=== PATIENT | female | born 1970 | race Caucasian/White ===

== ENCOUNTER → 2021-12-08 | Outpatient (CLI) | payer OTHER, SELFPAY ==
--- NOTE | 2021-12-08 06:33 | CT_ITS ---
STUDY: CT CHEST, ABDOMEN T PELVIS WITH CONTRAST REASON FOR EXAM: Female, 51 years old. BREAST CANCER follow-up. Prior bilateral mastectomy and bilateral oophorectomy. RADIATION DOSAGE (If Supplied By Facility): CTDIvol = ( 9.08 ) mGy, DLP = ( 687.92 ) mGycm TECHNIQUE: Transaxial imaging was performed following intravenous administration of Oral and amp;amp; IV Gastrografin and amp;amp; 100mL Isovue-300. Multiplanar coronal and sagittal images were reformatted. Individualized dose optimization techniques were used for this CT. COMPARISON: No relevant priors. FINDINGS: CHEST A right-sided nadia catheter seen with the tip in the superior vena cava. The patient is status post bilateral mastectomy. The lungs are normal. There is no demonstrated pleural abnormality. Normal heart and pericardium. Normal mediastinum. Normal hilar regions. Normal unenhanced pulmonary arteries. Normal aorta arch and descending thoracic aorta. Almost complete collapse of the T6 vertebrae. There is a 9.4 mm cyst in the lateral aspect of the left lobe of the liver. ABDOMEN Small cysts seen throughout both the right and left lobes of the liver. Normal gallbladder and extrahepatic biliary system. Normal spleen. Normal pancreas. Normal bilateral adrenal glands. Normal right kidney. There is a 1.5 cm cyst in the lateral posterior aspect of the left kidney. Normal visualized stomach. Normal small intestine. Normal colon. The appendix is visualized and appears normal. Normal abdominal aorta. Normal inferior vena cava. Normal retroperitoneum. Normal abdominal wall. Loss of the normal lumbar lordosis. PELVIS Normal urinary bladder. Normal visualized pelvic arteries. CT/CT Chest, Abd, Pel w/Contrast IMPRESSION: Small cysts in both lobes of the liver. Small cyst in the left kidney. Almost complete collapse of the T6 vertebrae. Electronically Signed: Harry Duffy MD at 10:06 EDT ,
[2021-12-08 06:50] LABS: Absolute Lymphocyte Count 1.46 X10^3/uL (0.83-4.51); Absolute Neutrophil Count 3.5 X10^3/uL (2.0-7.7); Basophil# 0.07 X10^3/uL; Basophil% 1.2 % (0-1); Eosinophil# 0.18 X10^3/uL; Eosinophils% 3.2 % (0-5); Hemoglobin 12.2 g/dL (12.0-15.0); Lymphocyte # 1.46 X10^3/ul (0.83-4.51); Lymphocyte % 25.7 % (19-41); Mean Corp Hgb Conc 31.3 g/dL (32-36); Mean Corpuscular Hgb 30.6 pg (27.0-32.0); Mean Corpuscular Volume 97.7 fL (81-99); Mean Platelet Vol. 9.9 fl (6.2-12.0); Monocyte# 0.44 X10^3/uL; Monocyte% 7.7 % (0-10); NRBC Flagged by Analyzer 0 % (0-5); Neutrophil # 3.53 X10^3/uL (2.7-7.7); Platelet Count 185 K/mm3 (150-450); RBC Distribution Width CV 13.9 % (11.6-14.6); RBC Distribution Width SD 50.6 fl (35.1-43.9); Red Blood Count 3.99 M/mm3 (4.2-5.4); White Blood Count 5.7 K/mm3 (4.4-11.0)
[2021-12-08 07:10] LABS: ALB/GLOB Ratio 1.2 RATIO (0.9-2.4); AST(SGOT) 17 U/L (15-37); Alanine Aminotransfer ALT/SGPT 16 U/L (13-56); Alkaline Phosphatase 71 U/L (45-117); Anion Gap 4 (5-15); BUN 12 mg/dL (7-18); BUN/Creat Ratio 14.8 RATIO (10-20); Calcium,Total 9.5 mg/dL (8.5-10.1); Chloride 109 mmol/L (98-107); Creatinine, Serum 0.81 mg/dL (0.55-1.02); EST Glomerular Filtration Rate 79 mL/min (>60); Est Glom Filt Rate - Afr Amer 95 mL/min (>60); Globulin 3.4 g/dL (2.2-4.2); Glucose 75 mg/dL (74-106); Potassium 3.8 mmol/L (3.5-5.1); Protein, Total 7.4 g/dL (6.4-8.2); Sodium Level 142 mmol/L (136-145)
[2021-12-08] MEDS: 0.9 % NaCl (Sterile) Posiflush 10 mL IV (08:25)
[2021-12-08] MEDS: 0.9% Saline Lock 10 ML Syringe IV (08:35)
[2021-12-09 17:14] LABS: CA 15-3 16.9 U/mL (0.0-25.0); CA 27.29 16.6 U/mL (0.0-38.6)
== END | disposition home or self-care (01) ==
LOC: CT 06:23
PROVIDERS: PCP Internal Medicine; Referring Provider Internal Medicine Hematology & Oncology; Visit Provider Internal Medicine Hematology & Oncology
DX: C50.812 Malignant neoplasm of overlapping sites of left female breast (principal); C79.51 Secondary malignant neoplasm of bone; C78.7 Secondary malignant neoplasm of liver and intrahepatic bile duct; C77.3 Secondary and unspecified 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; C64.1 Malignant neoplasm of right kidney, except renal pelvis; C50.919 Malignant neoplasm of unspecified site of unspecified female breast; Z17.0 Estrogen receptor positive status [ER+]
CPT/HCPCS: 36415; 71260; 74177; 80053; 85025; 86300; Q9967; A4216

== ENCOUNTER → 2021-12-12 | Outpatient (CLI) | payer OTHER, SELFPAY ==
--- NOTE | 2021-12-12 08:33 | NM_ITS ---
CLINICAL: Female, 51 years old. BREAST CANCER WHOLE BODY NUCLEAR BONE SCAN TECHNIQUE: Following the IV administration of 26 mCi of Tc MDP, whole body bone imaging was performed with a gamma camera following a three hour delay. COMPARISON STUDIES : NM - None. CR - Not available for review at this time. CT - Not available for review at this time. MR - Not available for review at this time. US - Not available for review at this time. FINDINGS: There is a normal concentration of radiopharmaceutical throughout the axial and appendicular skeletal system without either a focal decrease or increase in uptake. NM/Bone Scan Whole Body IMPRESSION: Normal whole body nuclear bone scan. Electronically Signed: Harry Duffy MD at 13:17 EDT ,
== END | disposition home or self-care (01) ==
LOC: NM 08:32
PROVIDERS: PCP Internal Medicine; Referring Provider Internal Medicine Hematology & Oncology; Visit Provider Internal Medicine Hematology & Oncology
DX: C50.812 Malignant neoplasm of overlapping sites of left female breast (principal); C79.51 Secondary malignant neoplasm of bone; C78.7 Secondary malignant neoplasm of liver and intrahepatic bile duct; C77.3 Secondary and unspecified 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; C64.1 Malignant neoplasm of right kidney, except renal pelvis; Z17.0 Estrogen receptor positive status [ER+]
CPT/HCPCS: 78306; A9503

== ENCOUNTER → 2022-05-04 | Outpatient (CLI) | payer OTHER, SELFPAY ==
--- NOTE | 2022-05-04 07:52 | NM_ITS ---
CLINICAL: 52-year-old female with history of carcinoma of the breast. WHOLE BODY 99m Tc MDP RADIONUCLIDE BONE SCINTIGRAPHY COMPARISON: Whole body bone scintigraphy study dated 12/12/2021 FINDINGS: Following the intravenous administration of 25.6 mCi of 99m Tc MDP, whole body bone images reveal: 1. Increased uptake is redefined in the right anterior-posterior first rib. 2. Facilitated radiopharmaceutical is noted in the sternoclavicular compartment of the right shoulder, the acromioclavicular compartments of both shoulders, the lateral glenohumeral compartment of the left shoulder, the patellofemoral compartment of the right knee, the second lumbar vertebra posteriorly on the left. 3. The remaining skeletal structures are scintigraphically unremarkable with normal-appearing renal images and urinary bladder activity identified. NM/Bone Scan Whole Body IMPRESSION: 1. The increase in radiotracer concentration defined in the right anterior-posterior first rib is commensurate with trauma-fracture. Plain film radiography correlation may be of benefit. 2. Degenerative arthrosis is defined in the bilateral shoulders, the right knee, the second lumbar vertebra. 3. Overall compared to the previous whole body bone scintigraphy study dated 12/12/2021, there is no significant interval change. No definitive scintigraphic evidence of diffuse axial skeletal metastatic disease is apparent on the current examination. Electronically Signed: Brian Hinkle, at 22:13 EST ,
== END | disposition home or self-care (01) ==
LOC: NM 07:51
PROVIDERS: PCP Internal Medicine; Visit Provider Internal Medicine Hematology & Oncology
DX: M17.11 Unilateral primary osteoarthritis, right knee (principal); C79.51 Secondary malignant neoplasm of bone; C78.7 Secondary malignant neoplasm of liver and intrahepatic bile duct; C77.3 Secondary and unspecified 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; C64.1 Malignant neoplasm of right kidney, except renal pelvis; C50.812 Malignant neoplasm of overlapping sites of left female breast; S29.001A Unspecified injury of muscle and tendon of front wall of thorax, initial encounter; Z17.0 Estrogen receptor positive status [ER+]
CPT/HCPCS: 78306; A9503

== ENCOUNTER → 2022-05-08 | Outpatient (CLI) | payer OTHER, SELFPAY ==
--- NOTE | 2022-05-08 07:57 | CT_ITS ---
STUDY: CT CHEST, ABDOMEN T PELVIS WITH CONTRAST REASON FOR EXAM: Female, 52 years old. F/U METS TO LUNG, Liver, bones AND LYMPH NODES- BREAST CANCER BILATERAL MASTECTOMIES WITH CHEMO RADIATION DOSAGE (If Supplied By Facility): CTDIvol = ( 9.31 ) mGy, DLP = ( 690.84 ) mGycm TECHNIQUE: Transaxial imaging was performed following intravenous administration of IV 75mL Isovue-370. Multiplanar coronal and sagittal images were reformatted. Individualized dose optimization techniques were used for this CT. COMPARISON: Comparison is made with prior study dated 12/08/2021. FINDINGS: CHEST A right-sided nadia catheter seen with the tip in the superior vena cava. The patient is status post bilateral mastectomy. The lungs are normal. There is no demonstrated pleural abnormality. Normal heart and pericardium. There are multiple small lymph nodes within the mediastinum, which are normal in size and morphology most compatible with reactive lymph hyperplasia. Normal hilar regions. Normal unenhanced pulmonary arteries. Normal aorta arch and descending thoracic aorta. Stable loss of height of the mid thoracic vertebrae. 1.5 cm hypodensity in the dome of the right lobe of the liver. Stable 1 cm cyst in the anterior aspect of the left lobe of the liver. ABDOMEN There is a 2 cm x 2.1 cm hypodense nodule in the posterior aspect of the right dome of the liver. A metastatic deposit should be ruled out. Tiny cysts are also seen and these are unchanged. Normal gallbladder and extrahepatic biliary system. Normal spleen. Normal pancreas. Normal bilateral adrenal glands. Normal right kidney. Stable 1.5 cm cyst in the lateral posterior margin of the left kidney. Normal visualized stomach. Normal small intestine. Normal colon. The appendix is visualized and appears normal. Normal abdominal aorta. Normal inferior vena cava. Normal retroperitoneum. Normal abdominal wall. There are diffuse degenerative changes of the visualized lumbar spine. PELVIS Normal urinary bladder. There is diffuse atherosclerotic calcification of the pelvic arteries. Normal abdominal wall. Normal osseous structures. CT/CT Chest, Abd, Pel w/Contrast IMPRESSION: 2 cm x 2.1 some evidence nodule in the posterior aspect of the dome of the liver in the right lobe. Electronically Signed: Harry Duffy MD at 11:50 EST ,
[2022-05-08] MEDS: 0.9% Saline Lock 10 ML Syringe IV (08:12)
== END | disposition home or self-care (01) ==
LOC: CT 07:54
PROVIDERS: PCP Internal Medicine; Referring Provider Internal Medicine Hematology & Oncology; Visit Provider Internal Medicine Hematology & Oncology
DX: C77.3 Secondary and unspecified 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 (principal); C79.51 Secondary malignant neoplasm of bone; C78.7 Secondary malignant neoplasm of liver and intrahepatic bile duct; C64.1 Malignant neoplasm of right kidney, except renal pelvis; C50.812 Malignant neoplasm of overlapping sites of left female breast; Z90.13 Acquired absence of bilateral breasts and nipples; R29.890 Loss of height; Z17.0 Estrogen receptor positive status [ER+]
CPT/HCPCS: 71260; 74177; Q9967; A4216

== ENCOUNTER → 2022-06-01 | Outpatient (CLI) | payer OTHER, SELFPAY ==
--- NOTE | 2022-06-01 11:46 | ECHODONC_ITS ---
Reason For Study: [employer] Procedure This was a 2D Doppler, Color Flow transthoracic echocardiogram. Myocardial strain analysis was performed in this exam to aid in the assessment of cardiac function. Exam performed in department. Left Ventricle Normal LV size. Left ventricular systolic function is normal. The estimated ejection fraction is 63 %. No regional wall motion abnormalities noted. Right Ventricle Normal RV size. Normal systolic function. Atria Normal left atrium. Normal right atrium. Mitral Valve Normal mitral valve. Tricuspid Valve Normal tricuspid valve. Aortic Valve Normal aortic valve. Trisinus/trileaflet aortic valve. Pulmonic Valve Normal pulmonic valve. Great Vessels Normal aortic root. The pulmonary artery is normal size. Normal inferior vena cava. Pericardium/Pleural No pericardial effusion. MMode/2D Measurements & Calculations LVIDd: 4.3 cm IVSd: 0.65 cm Ao root diam: 2.8 cm LVIDs: 2.8 cm LVPWd: 0.76 cm RVDd: 3.6 cm FS: 34.8 % LAV(MOD-bp): 32.1 ml LVAd ap4: 27.8 cm2 SV(MOD-sp4): 51.1 ml LAV(MOD-bp) Indexed: 19.5 ml/m2 LVLd ap4: 8.0 cm LAV(MOD-sp2): 33.1 ml EDV(MOD-sp4): 80.5 ml LAV(MOD-sp4): 30.3 ml EDV(sp4-el): 82.1 ml LVAs ap4: 15.4 cm2 LVLs ap4: 6.7 cm ESV(MOD-sp4): 29.5 ml ESV(sp4-el): 29.7 ml EF(MOD-sp4): 63.4 % EF(sp4-el): 63.8 % SV(sp4-el): 52.4 ml LA A4 area: 13.7 cm2 LA dimension(2D): 2.5 cm RA A4 area: 13.4 cm2 Time Measurements MV dec time: 0.28 sec Doppler Measurements & Calculations MV E max liam: 68.2 cm/sec Lat Peak E' Liam: 17.5 cm/sec Med Peak E' Liam: 13.1 cm/sec MV A max liam: 52.7 cm/sec E/E' lat: 3.9 E/E' med: 5.2 MV E/A: 1.3 Ao V2 max: 127.4 cm/sec LV V1 max: 101.4 cm/sec PA V2 max: 93.1 cm/sec Ao max P.5 mmHg LV V1 max P.1 mmHg TR max liam: 234.6 cm/sec TR max P.0 mmHg ECHO/ONC Echo Complete Interpretation Summary Normal LV size. Left ventricular systolic function is normal. The estimated ejection fraction is 63 %. Structurally normal valves. The global longitudinal strain is normal. The globa l longitudinal strain = -20.3 % (normal). Ordering Physician: Olivia Castillo Referring Physician: CIARA CATES Performed By: Jasmina Hay RDCS
== END | disposition home or self-care (01) ==
LOC: CVS 11:44
PROVIDERS: PCP Internal Medicine; Visit Provider Internal Medicine Hematology & Oncology
DX: C50.919 Malignant neoplasm of unspecified site of unspecified female breast (principal); Z79.899 Other long term (current) drug therapy
CPT/HCPCS: 93306; 93356

== ENCOUNTER → 2022-09-17 | Outpatient (CLI) | payer OTHER, SELFPAY ==
--- NOTE | 2022-09-17 14:02 | CT_ITS ---
INDICATION: F/U METS BREAST CANCER (LIVER, LUNGS, BONES) IV EXAMINATION: CT CHEST AND ABDOMEN WITH CONTRAST - CT Chest And Abdomen W/ Contrast Injection TECHNIQUE: Helically acquired images were obtained of the chest and abdomen. A radiation dose optimization technique was used for this scan. IV Contrast dosage and agent: 75 cc Isovue-370 Oral contrast: None. COMPARISON: 05/08/2022 FINDINGS: ----Chest: LUNGS, PLEURA AND LARGE AIRWAYS: No masses, consolidation, or edema. No pleural effusion or thickening. No pneumothorax. THYROID: No thyroid lesions. HEART AND PERICARDIUM: Heart size is normal. No pericardial effusion. VESSELS: Thoracic aorta is not dilated. MEDIASTINUM AND ONEIDA: No mediastinal or hilar adenopathy. Esophagus is unremarkable. No hiatal hernia. BONES: No suspicious lytic or blastic abnormality. ----Abdomen (without Pelvis): LIVER: Stable 1.2 cm cyst left lobe anteriorly. Decreased size of the low-attenuation lesion dome of right lobe, currently 1.8 cm compared to 2.3 cm previously at the same level. No new hepatic lesions present. GALLBLADDER AND BILIARY TREE: No calcified gallstones. No gallbladder distension or wall edema. No intra- or extrahepatic biliary ductal dilation. PANCREAS: No focal cystic or solid mass. SPLEEN: Normal size without focal cystic or solid mass. ADRENAL GLANDS: No nodules. KIDNEYS AND URETERS: Normal renal size and position. No hydronephrosis. PERITONEUM: No ascites or free air. BOWEL: No evidence of acute appendicitis. No stomach or bowel distension. No focal inflammatory change. LYMPH NODES: No enlarged mesenteric or retroperitoneal lymph nodes. VESSELS: Aorta is non-dilated. BONES: No lytic or blastic abnormality. CT/CT Chest AND Abd W/ Contrast IMPRESSION: Interval mild regression of hypoechoic lesion dome of right lobe liver. Otherwise stable interval examination without other evidence of possible metastatic disease. No acute findings in the chest or abdomen. Electronically Signed: Chase Matute MD at 22:11 EDT ,
--- NOTE | 2022-09-17 14:02 | ECHOLONC_ITS ---
Reason For Study: Secondary Malignant neoplasm of liver Procedure This was a limited 2D transthoracic echocardiogram. Myocardial strain analysis was performed in this exam to aid in the assessment of cardiac function. Exam performed in department. Left Ventricle Normal LV size. Left ventricular systolic function is normal. The estimated ejection fraction is 60 %. No regional wall motion abnormalities noted. Right Ventricle Normal RV size. Normal systolic function. Atria Normal left atrium. Normal right atrium. Mitral Valve Normal mitral valve. Tricuspid Valve Normal tricuspid valve. Mild (1+) tricuspid valve insufficiency. Pulmonary artery systolic pressure is 30 mmHg. Aortic Valve Normal aortic valve. Trisinus/trileaflet aortic valve. Pulmonic Valve Normal pulmonic valve. Great Vessels Normal aortic root. The pulmonary artery is normal size. Normal inferior vena cava. Pericardium/Pleural No pericardial effusion. MMode/2D Measurements & Calculations LVIDd: 4.5 cm IVSd: 0.73 cm LA dimension: 2.8 cm LVIDs: 3.0 cm LVPWd: 0.52 cm RVDd: 3.6 cm FS: 32.9 % LAV(MOD-sp4): 25.1 ml LVAd ap4: 30.1 cm2 SV(MOD-sp4): 55.2 ml LVLd ap4: 8.0 cm EDV(MOD-sp4): 92.1 ml EDV(sp4-el): 95.7 ml LVAs ap4: 17.0 cm2 LVLs ap4: 6.5 cm ESV(MOD-sp4): 36.8 ml ESV(sp4-el): 37.6 ml EF(MOD-sp4): 60.0 % EF(sp4-el): 60.7 % SV(sp4-el): 58.0 ml LA A4 area: 12.5 cm2 RA A4 area: 12.9 cm2 Doppler Measurements & Calculations Lat Peak E' Liam: 17.3 cm/sec Med Peak E' Liam: 14.5 cm/sec TR max liam: 256.4 cm/sec TR max P.3 mmHg ECHO/ONC Echo, Limited Study Interpretation Summary Normal LV size. Left ventricular systolic function is normal. The estimated ejection fraction is 60 %. The global longitudinal strain is normal. The global longitudinal strain = -19. 4 % (normal). Ordering Physician: Olivia Castillo Referring Physician: Philly Garcia M.D. Performed By: Zacarias Nogueira RCS
== END | disposition home or self-care (01) ==
LOC: CT 14:00
PROVIDERS: PCP Internal Medicine; Referring Provider Internal Medicine Hematology & Oncology; Visit Provider Internal Medicine Hematology & Oncology
DX: C78.7 Secondary malignant neoplasm of liver and intrahepatic bile duct (principal); C79.51 Secondary malignant neoplasm of bone; C77.3 Secondary and unspecified 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; C64.1 Malignant neoplasm of right kidney, except renal pelvis; C50.812 Malignant neoplasm of overlapping sites of left female breast; Z17.0 Estrogen receptor positive status [ER+]; R91.1 Solitary pulmonary nodule
CPT/HCPCS: 71260; 74160; 93308; 93356; Q9967

== ENCOUNTER → 2022-12-22 | Outpatient (CLI) | payer OTHER, SELFPAY ==
--- NOTE | 2022-12-22 08:30 | ECHODONC_ITS ---
Reason For Study: Breast Cancer with therapeutic drug level monitoring Procedure This was a 2D Doppler, Color Flow transthoracic echocardiogram. Myocardial strain analysis was performed in this exam to aid in the assessment of cardiac function. Exam performed in department. Left Ventricle Normal LV size. Left ventricular systolic function is normal. The estimated ejection fraction is 65 %. No regional wall motion abnormalities noted. Right Ventricle Normal RV size. Normal systolic function. Atria Normal left atrium. Normal right atrium. Mitral Valve Normal mitral valve. Tricuspid Valve Normal tricuspid valve. Mild (1+) tricuspid valve insufficiency. Pulmonary artery systolic pressure is 30 mmHg. Aortic Valve Normal aortic valve. Pulmonic Valve Normal pulmonic valve. Great Vessels Normal aortic root. The pulmonary artery is normal size. Normal inferior vena cava. Pericardium/Pleural No pericardial effusion. MMode/2D Measurements & Calculations LVIDd: 4.0 cm IVSd: 0.83 cm Ao root diam: 3.1 cm LVIDs: 2.8 cm LVPWd: 0.97 cm LA dimension: 3.1 cm RVDd: 3.8 cm FS: 31.1 % LAV(MOD-bp): 41.9 ml LVAd ap4: 28.3 cm2 SV(MOD-sp4): 51.1 ml LAV(MOD-bp) Indexed: 25.8 ml/m2 LVLd ap4: 7.7 cm LAV(MOD-sp2): 37.1 ml EDV(MOD-sp4): 84.1 ml LAV(MOD-sp4): 34.7 ml EDV(sp4-el): 88.1 ml LVAs ap4: 16.0 cm2 LVLs ap4: 6.4 cm ESV(MOD-sp4): 32.9 ml ESV(sp4-el): 33.5 ml EF(MOD-sp4): 60.8 % EF(sp4-el): 62.0 % SV(sp4-el): 54.6 ml LA A4 area: 15.6 cm2 RA A4 area: 15.6 cm2 Time Measurements MV dec time: 0.21 sec Doppler Measurements & Calculations MV E max liam: 78.0 cm/sec Lat Peak E' Liam: 21.2 cm/sec Med Peak E' Liam: 15.5 cm/sec MV A max liam: 55.6 cm/sec E/E' lat: 3.7 E/E' med: 5.0 MV E/A: 1.4 MV V2 max: 82.1 cm/sec MV P1/2t max liam: 82.6 cm/sec Ao V2 max: 128.2 cm/sec MV max P.7 mmHg MV P1/2t: 68.3 msec Ao max P.6 mmHg MV V2 mean: 45.7 cm/sec Ao V2 mean: 86.0 cm/sec MV mean P.99 mmHg MV dec slope: 354.2 cm/sec2 Ao mean P.5 mmHg MV V2 VTI: 20.3 cm MVA(P1/2t): 3.2 cm2 Ao V2 VTI: 28.0 cm AV (velocity ratio): 0.83 LV V1 max: 106.6 cm/sec PA V2 max: 104.7 cm/sec TR max liam: 260.8 cm/sec LV V1 max P.5 mmHg PA V2 mean: 75.4 cm/sec TR max P.2 mmHg LV V1 mean P.7 mmHg LV V1 mean: 77.2 cm/sec LV V1 VTI: 23.3 cm ECHO/ONC Echo Complete Interpretation Summary Normal LV size. Left ventricular systolic function is normal. The estimated ejection fraction is 65 %. The global longitudinal strain is normal. The global longitudinal strain = -20. 5 % (normal). Compared to previous study, the left ventricular systolic function is the same. . Ordering Physician: Neha Luciano Referring Physician: Philly Garcia M.D. Performed By: Zacarias Nogueira RCS
--- NOTE | 2022-12-22 08:30 | CT_ITS ---
STUDY: CT CHEST T ABDOMEN WITH CONTRAST REASON FOR EXAM: Female, 52 years old. Assess response to treatment. History of breast cancer. RADIATION DOSAGE (If Supplied By Facility): CTDIvol = ( 7.32 ) mGy, DLP = ( 503.8 ) mGycm TECHNIQUE: Transaxial imaging was performed following intravenous administration of IV 100mL Isovue-300. Individualized dose optimization techniques were used for this CT. COMPARISON: Comparison is made with prior study of September 17, 2022. FINDINGS: CHEST A right-sided Port-A-Cath is seen with the tip in the superior vena cava. Mild apical scarring at both lung apices. There is no demonstrated pleural abnormality. Normal heart and pericardium. There are multiple small lymph nodes within the mediastinum, which are normal in size and morphology most compatible with reactive lymph hyperplasia. Normal hilar regions. Normal unenhanced pulmonary arteries. Normal aorta arch and descending thoracic aorta. Almost complete collapse of a mid dorsal vertebrae. ABDOMEN Stable 1.2 cm cyst in the anterior left lobe of the liver. There is been further decrease in size of the low attenuation lesion in the dome of the right lobe of the liver. Normal gallbladder and extrahepatic biliary system. Normal spleen. Normal pancreas. Normal bilateral adrenal glands. Normal right kidney. Stable left renal cysts. Normal visualized stomach. Normal small intestine. Normal colon. The appendix is visualized and appears normal. Normal abdominal aorta. Normal inferior vena cava. Normal retroperitoneum. Normal abdominal wall. Loss of the normal lumbar lordosis. CT/CT Chest AND Abd W/ Contrast IMPRESSION: Interval decrease in size of the low-attenuation lesion in the dome of the right lobe of the liver. Stable hepatic cyst and left renal cysts. Electronically Signed: Harry Duffy MD at 14:40 EDT ,
== END | disposition home or self-care (01) ==
LOC: CVS 08:28
PROVIDERS: PCP Internal Medicine; Referring Provider Nurse Practitioner Family; Visit Provider Nurse Practitioner Family
DX: Z51.81 Encounter for therapeutic drug level monitoring (principal); C64.1 Malignant neoplasm of right kidney, except renal pelvis; C50.812 Malignant neoplasm of overlapping sites of left female breast; Z79.899 Other long term (current) drug therapy; Z17.0 Estrogen receptor positive status [ER+]
CPT/HCPCS: 71260; 74160; 93306; 93356; Q9967; A4216

== ENCOUNTER → 2022-12-28 | Outpatient (CLI) | payer OTHER, SELFPAY ==
--- NOTE | 2022-12-28 10:32 | NM_ITS ---
CLINICAL: 52-year-old female with history of primary breast carcinoma. WHOLE BODY 99m Tc MDP RADIONUCLIDE BONE SCINTIGRAPHY COMPARISON: Previous whole body bone scintigraphy study dated 05/04/2022 FINDINGS: Following the intravenous administration of 25.4 mCi of 99m Tc MDP, whole body bone images reveal: 1. Increased radiopharmaceutical concentration is defined in the acromioclavicular and sternoclavicular compartments of both shoulders, the right ankle, the bilateral forefoot. 2. Enhanced uptake remains apparent in the right anterior-posterior first rib and apparent in the left proximal humeral metaphysis. 3. The remaining skeletal structures are scintigraphically unremarkable with normal-appearing renal images and urinary bladder activity identified. NM/Bone Scan Whole Body IMPRESSION: 1. The increase in tracer uptake noted in the right first rib likely represents trauma-fracture. Uptake noted in the left proximal humeral metaphysis may be further investigated with plain film radiography. 2. Degenerative arthritis is defined in the right ankle, both shoulder articulations and right-left forefoot. 3. Overall compared to the previous whole body bone scintigraphy study dated 05/04/2022, there is minimal interval change, there is no definitive scintigraphic evidence of diffuse axial skeletal metastatic disease. Asymmetric uptake noted in the left proximal humerus on the current examination may be further assessed with plain film radiography as defined above. Electronically Signed: Brian Hinkle, at 20:03 EDT ,
== END | disposition home or self-care (01) ==
PROVIDERS: PCP Internal Medicine; Referring Provider Nurse Practitioner Family; Visit Provider Nurse Practitioner Family
DX: C50.812 Malignant neoplasm of overlapping sites of left female breast (principal); C64.1 Malignant neoplasm of right kidney, except renal pelvis; Z17.0 Estrogen receptor positive status [ER+]
CPT/HCPCS: 78306; A9503

== ENCOUNTER → 2023-04-07 | Outpatient (CLI) | payer OTHER, SELFPAY ==
--- NOTE | 2023-04-07 12:51 | CT_ITS ---
EXAM: CT CHEST AND ABDOMEN WITH INTRAVENOUS CONTRAST CLINICAL INDICATION: BREAST CANCER IV CONT ONLY TECHNIQUE: Helically acquired images were obtained of the chest and abdomen with intravenous contrast. This CT exam was performed using one or more of the following dose reduction techniques: automated exposure control, adjustment of the mA and/or kV according to patient size, and/or use of iterative reconstruction technique. CONTRAST: IV 100mL Isovue-370 COMPARISON: CT chest and abdomen, 12/22/2022 and 05/08/2022 FINDINGS: CHEST: LUNGS AND PLEURAL SPACES: No significant abnormality. No mass. No consolidation or edema. No pleural effusion or thickening. No pneumothorax. HEART: No significant abnormality. Heart size is normal. No pericardial effusion. MEDIASTINUM: No significant abnormality. No mediastinal or hilar adenopathy. Esophagus is unremarkable. No hiatal hernia. THYROID: Subcentimeter right thyroid nodule for which no follow-up is indicated. ABDOMEN: LIVER: Irregular low-attenuation lesion within the right hepatic lobe at the dome the liver, smaller since 05/08/2022 likely indicative of a treated metastasis. Other more well-defined low-attenuation foci within the liver have been unchanged and may be cysts although some of them are too small to further characterize. No new focal hepatic abnormality. GALLBLADDER AND BILE DUCTS: No significant abnormality. No calcified gallstones. No gallbladder distention or wall edema. No intra- or extrahepatic biliary ductal dilation. PANCREAS: No significant abnormality. No focal cystic or solid mass. SPLEEN: No significant abnormality. Normal size without focal cystic or solid mass. ADRENALS: No significant abnormality. No nodules. KIDNEYS AND URETERS: Left lower pole renal low-attenuation lesion with Hounsfield units of approximately 35-40 appears unchanged since at least 05/08/2022 and may be a complicated cyst rather than a solid lesion. Other renal cysts are present for which no follow-up would be indicated. No hydronephrosis. STOMACH AND BOWEL: No significant abnormality. No stomach or bowel distention. No focal inflammatory change. INTRAPERITONEAL SPACE: No significant abnormality. No ascites or other fluid collection. No free air. CHEST and ABDOMEN: BONES/JOINTS: Mixed attenuation expansile lesion within the right first rib is nonspecific. This appears unchanged since 05/08/2022 and is indeterminate, perhaps a metastatic lesion. Degenerative changes in the axial and appendicular skeleton. T8 butterfly-type vertebra similar to the prior examinations. Large Schmorl''s node at the inferior endplate of L2 appears similar to the prior examinations. SOFT TISSUES: No significant abnormality. No discrete abdominal wall hernia. VASCULATURE: No significant abnormality. Aorta is non-dilated. No aortic dissection. No obvious central pulmonary embolism although this study was not performed with the pulmonary embolism protocol. LYMPH NODES: No significant abnormality. No enlarged lymph nodes. TUBES, LINES AND DEVICES: Right-sided chest port. CT/CT Chest AND Abd W/ Contrast IMPRESSION: 1. Irregular low-attenuation lesion within the right hepatic lobe at the dome the liver, smaller since 05/08/2022 likely indicative of a treated metastasis. Other more well-defined low-attenuation foci within the liver have been unchanged and may be cysts although some of them are too small to further characterize. No new focal hepatic abnormality. 2. Left lower pole renal low-attenuation lesion with Hounsfield units of approximately 35-40 appears unchanged since at least 05/08/2022 and may be a complicated cyst rather than a solid lesion. 3. Mixed attenuation expansile lesion within the right first rib is nonspecific. This appears unchanged since 05/08/2022 and is indeterminate, perhaps a metastatic lesion. Electronically Signed: Doug Shea DO at 20:22 EST ,
[2023-04-07] MEDS: 0.9 % NaCl (Sterile) Posiflush 10 mL IV (13:10)
== END | disposition home or self-care (01) ==
LOC: CT 12:50
PROVIDERS: PCP Internal Medicine; Referring Provider Internal Medicine Hematology & Oncology; Visit Provider Internal Medicine Hematology & Oncology
DX: C50.812 Malignant neoplasm of overlapping sites of left female breast (principal); C78.7 Secondary malignant neoplasm of liver and intrahepatic bile duct; C79.51 Secondary malignant neoplasm of bone; C77.3 Secondary and unspecified 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; C64.1 Malignant neoplasm of right kidney, except renal pelvis; Z17.0 Estrogen receptor positive status [ER+]
CPT/HCPCS: 71260; 74160; Q9967; A4216

== ENCOUNTER → 2023-05-18 | Outpatient (CLI) | payer OTHER, SELFPAY ==
--- NOTE | 2023-05-18 13:50 | ECHODONC_ITS ---
Reason For Study: Breast CA, High risk meds Procedure This was a 2D Doppler, Color Flow transthoracic echocardiogram. Myocardial strain analysis was performed in this exam to aid in the assessment of cardiac function. Exam performed in department. Left Ventricle Normal LV size. Left ventricular systolic function is normal. The left ventricular ejection fraction is 60 %. No regional wall motion abnormalities noted. Right Ventricle Normal RV size. Normal systolic function. Atria Normal left atrium. Mitral Valve Normal mitral valve. Tricuspid Valve Normal tricuspid valve. Mild tricuspid valve insufficiency. Pulmonary artery systolic pressure is 24 mmHg. Aortic Valve Normal aortic valve. Trisinus/trileaflet aortic valve. Pulmonic Valve Normal pulmonic valve. Great Vessels Normal aortic root. The pulmonary artery is normal size. Inferior vena cava collapse with sniff. Pericardium/Pleural No pericardial effusion. MMode/2D Measurements & Calculations LVIDd: 3.4 cm IVSd: 0.97 cm Ao root diam: 2.8 cm LVIDs: 2.5 cm LVPWd: 0.78 cm RVDd: 3.2 cm FS: 26.2 % LAV(MOD-bp): 21.0 ml LVAd ap4: 27.4 cm2 LVAd ap2: 25.1 cm2 LAV(MOD-bp) Indexed: 13.2 ml/m2 LVLd ap4: 8.0 cm LVLd ap2: 8.1 cm LAV(MOD-sp2): 12.6 ml EDV(MOD-sp4): 77.2 ml EDV(MOD-sp2): 64.0 ml LAV(MOD-sp4): 27.7 ml EDV(sp4-el): 80.0 ml EDV(sp2-el): 66.3 ml LVAs ap4: 16.3 cm2 LVAs ap2: 14.3 cm2 LVLs ap4: 7.2 cm LVLs ap2: 7.1 cm ESV(MOD-sp4): 30.6 ml ESV(MOD-sp2): 24.8 ml ESV(sp4-el): 31.1 ml ESV(sp2-el): 24.4 ml EF(MOD-sp4): 60.3 % EF(MOD-sp2): 61.2 % EF(sp4-el): 61.1 % SV(MOD-sp4): 46.5 ml SV(MOD-sp2): 39.2 ml SV(sp4-el): 48.9 ml LA dimension(2D): 2.2 cm LA A4 area: 13.1 cm2 RA A4 area: 12.9 cm2 TAPSE: 1.8 cm Time Measurements MV dec time: 0.28 sec Doppler Measurements & Calculations MV E max liam: 62.5 cm/sec Lat Peak E' Liam: 17.2 cm/sec Med Peak E' Liam: 10.6 cm/sec MV A max liam: 53.3 cm/sec E/E' lat: 3.6 E/E' med: 5.9 MV E/A: 1.2 MV dec slope: 221.3 cm/sec2 Ao V2 max: 138.5 cm/sec LV V1 max: 104.0 cm/sec Ao max P.7 mmHg LV V1 max P.3 mmHg Ao V2 mean: 98.1 cm/sec LV V1 mean P.2 mmHg Ao mean P.3 mmHg LV V1 mean: 69.1 cm/sec Ao V2 VTI: 29.5 cm LV V1 VTI: 20.5 cm AV (velocity ratio): 0.70 PA V2 max: 70.4 cm/sec TR max liam: 222.9 cm/sec TR max P.9 mmHg ECHO/ONC Echo Complete Interpretation Summary Normal LV size. Left ventricular systolic function is normal. The left ventricular ejection fraction is 60 %. The global longitudinal strain is normal. The global longitudinal strain = -18. 5 % (normal). Ordering Physician: Olivia Castillo Referring Physician: Philly Garcia M.D. Performed By: Jackie Fox RDCS
== END | disposition home or self-care (01) ==
LOC: CVS 13:48
PROVIDERS: PCP Internal Medicine; Referring Provider Internal Medicine Hematology & Oncology; Visit Provider Internal Medicine Hematology & Oncology
DX: Z51.81 Encounter for therapeutic drug level monitoring (principal); Z79.899 Other long term (current) drug therapy
CPT/HCPCS: 93306; 93356

== ENCOUNTER → 2023-07-05 | Outpatient (CLI) | payer OTHER, SELFPAY ==
--- NOTE | 2023-07-05 07:42 | NM_ITS ---
CLINICAL: 53-year-old female with history of primary breast carcinoma. WHOLE BODY 99m Tc MDP RADIONUCLIDE BONE SCINTIGRAPHY COMPARISON: Previous whole body bone scintigraphy study dated 12/28/2022 FINDINGS: Following the intravenous administration of 26.7 mCi of 99m Tc MDP, whole body bone images reveal: 1. Increased uptake remains apparent in the right first rib, the left proximal humeral metaphysis, currently demonstrated in the left sacroiliac joint-left posterior ilium, the first lumbar vertebra posteriorly on the left. 2. Enhanced uptake remains apparent in the acromioclavicular compartments of both shoulders. 3. The remaining skeletal structures are scintigraphically unremarkable with normal-appearing renal images and urinary bladder activity identified. NM/Bone Scan Whole Body IMPRESSION: 1. 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 2. 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 3. Overall compared to the previous whole body bone scintigraphy study dated 12/28/2022, there is apparent progression of defined viable osseous neoplastic disease. If flare phenomenon is a diagnostic consideration, repeat whole body bone scintigraphy in 12-16 weeks is recommended. Electronically Signed: Brian Hinkle DO at 9:18 EST ,
--- OUTSIDE RECORDS SUMMARY | 2023-07-05 07:53 | XMS RPT_ITS | CCD ---
Author Name Unknown Address [address] [place] [address] Organization [facility] Care Team Providers Care Tube Mounter Name Role Phone Philly Garcia Unavailable Yves Glez Unavailable MALENA Mcneill Unavailable Unavailable Unavailable Unavailable Philly Garcia MD Primary Care Provider [phone] Esteban SARMIENTO MD, Alvarado Unavailable Dosav[place] RN, Monica Unavailable Unavailable Esteban SARMIENTO MD, Alvarado Unavailable Philly Garcia MD Primary Care Provider [phone] Esteban SARMIENTO MD, Alvarado Unavailable D[place]av[place] RN, Monica Unavailable Unavailable Esteban SARMIENTO MD, Alvarado Unavailable Allergies Allergy Classification Reported Allergen(s) Allergy Type Date of Onset Reaction(s) Facility (14 sources) Acetaminophen / oxyCODONE; Translations: [Percocet *ANALGESICS - OPIOID*] Drug Allergy 6 Vomiting [facility] Work Phone: Medications Completed/Discontinued Medications Medication Drug Class(es) Dates Sig (Normalized) Sig (Original) ALPRAZolam 1 mg oral tablet (1 source) Benzodiazepine Start: 03-02-2016 End: 07-07-2017 take 1 tablet by mouth every six hours at bedtime as needed ALPRAZolam 1 MG Oral Tablet 1 (one) Tablet q 6 hours and @ HS prn for 0 days Quantity: 30 {Tablet} Refills: 5 Ordered: 07-Jul-2017 MALENA Mcneill Start : 02-Mar-2016 End : 07-Jul-2017 Inactive Comments: thirty Problems Active Problems Problem Classification Problem Date Documented Da te Episodic/Chronic Cancer of breast (20 sources) Primary malignant neoplasm of breast; Translations: [Metastasis from malignant tumor of breast] Onset: 09-12-2015 07-07-2017 Chronic Past or Other Problems Problem Classification Problem Date Documented Da te Episodic/Chronic Allergic reactions (13 sources) Eruption due to drug; Translations: [Generalized skin eruption due to drugs and medicaments taken internally] Onset: 09-13-2020 09-13-2020 Episodic Diseases of mouth; excluding dental (13 sources) Inflammatory disease of mucous membrane; Translations: [Other forms of stomatitis] Onset: 03-09-2018 03-09-2018 Episodic Fluid and electrolyte disorders (13 sources) Dehydration; Translations: [Dehydration] Onset: 03-09-2018 03-09-2018 Episodic Nonmalignant breast conditions (1 source) Unspecified lump in the left breast, unspecified quadrant; Translations: [Left breast lump] 07-07-2017 Results Test Name Value Interpretation Reference Range Facil ity Vital Signs Date Time Vital Sign Value Performing Clinician Facility 10-27-2021 14:00-0400 Body temperature 98.29 [degF] Treatment Wstr Work Phone: [facility] 10-27-2021 14:00-0400 Diastolic blood pressure 72 mm[Hg] Treatment Wstr Work Phone: [facility] 10-27-2021 14:00-0400 Heart rate 75 /min Treatment Wstr Work Phone: [facility] 10-27-2021 14:00-0400 Respiratory rate 20 /min Treatment Wstr Work Phone: [facility] 10-27-2021 14:00-0400 Systolic blood pressure 110 mm[Hg] Treatment Wstr Work Phone: [facility] 08-27-2021 08:56-0400 Body temperature 97.7 [degF] Tommy French DO Work Phone: [facility] 08-27-2021 08:56-0400 Diastolic blood pressure 77 mm[Hg] Tommy French DO Work Phone: [facility] 08-27-2021 08:56-0400 Heart rate 73 /min Tommy French DO Work Phone: [facility] 08-27-2021 08:56-0400 Systolic blood pressure 112 mm[Hg] Tommy French DO Work Phone: [facility] 08-25-2021 09:15-0400 Diastolic blood pressure 78 mm[Hg] Zackery Ramirez MD Work Phone: [facility] 08-25-2021 09:15-0400 Heart rate 72 /min Zackery Ramirez MD Work Phone: [facility] 08-25-2021 09:15-0400 Respiratory rate 16 /min Zackery Ramirez MD Work Phone: [facility] 08-25-2021 09:15-0400 SaO2% (BldA) [Mass fraction] 100 % Zackery Ramirez MD Work Phone: [facility] 08-25-2021 09:15-0400 Systolic blood pressure 121 mm[Hg] Zackery Ramirez MD Work Phone: [facility] 08-25-2021 07:38-0400 Body temperature 97.3 [degF] Zackery Ramirez MD Work Phone: [facility] 07-07-2017 15:03-0500 BMI (Body Mass Index) 24.96 kg/m2 Philly Garcia [facility] Work Phone: 07-07-2017 15:03-0500 Body Temperature 97.8 [degF] Philly Garcia [facility] Work Phone: Encounters Encounter Date Encounter Type Care Provider Facility Start: 07-31-2022 Refill Tommy Lockhart O Work Phone: Hematology/Oncology Procedures Date Procedure Procedure Detail Performing Clinician Start: 10-27-2021 Blood count complete auto&auto difrntl wbc Tommy French DO Work Phone: Start: 09-08-2021 Blood count complete auto&auto difrntl wbc Tommy French DO Work Phone: Start: 08-27-2021 Adult depression screening assessment Tommy French DO Work Phone: Start: 08-25-2021 Colon ca scrn not hi rsk ind Norma Prakash PA-C Work Phone: Start: 08-25-2021 Colonoscopy Zackery Ramirez MD Work Phone: Start: 10-06-2019 Adult depression screening assessment Zackery Ramirez MD Work Phone: Start: 08-30-2015 End: 08-30-2015 Bilat Diag Digital AND CAD Comments: See Note; NOTES: [facility] Imaging Services [address] [place] [address] Verdana 4d Bilat Diag Digital AND CAD MR#: [id number] Acct: [id number] Name: JOE HAYWOOD Rep #: [id number] : 1970 F 45 From: Harry Duffy MD PCP: Philly Garcia MD Status: REG CLI Study: Bilat Diag Digital AND CAD Date of Exam: 08/30/15 Exam# [id number] Ordering Dr: Philly Garcia MD MAMMOGRAPHY - BILATERAL DIAGNOSTIC REASON FOR EXAM: Female, 45 years old. Left breast lump with skin thickening and retraction. PERTINENT HISTORY: TECHNIQUE: Digital bilateral breast tomosynthesis (3-D mammographic acquisition) in the CC and MLO projections. Synthesized 2-D images (C-View reconstruction from tomosynthesis acquisition) providing bilateral breast CC and MLO views. Mediolateral oblique (MLO) and craniocaudad (CC) views of both breasts were obtained. CAD: Full Field Digital Mammography with Computer Added Detection was performed. COMPARISON: None. Baseline examination. FINDINGS: Breast Composition: The breasts are heterogeneously dense, which may obscure small masses. There is a 3.5 cm x 3.3 cm x 1.8 cm irregular spiculated mass in the superior retroareolar region of the left breast. This is highly suggestive of a carcinoma. There is also evidence of a 1.9 cm x 1.5 cm spiculated nodular density along the inferior medial aspect of the left breast. There is overlying skin thickening and retraction of the breast. A biopsy is strongly recommended. No other significant abnormalities are identified. IMPRESSION: Spiculated abnormalities in the left breast as described with overlying skin thickening and breast retraction. A biopsy is strongly recommended. ASSESSMENT CATEGORY: BIRADS Category 5: Highly Suggestive of Malignancy - Appropriate Action Should Be Taken. A letter regarding these results will be sent to the patient by the facility within 30 days. Approximately 10% of breast cancers are not detected by mammography. A normal mammogram should not delay biopsy of a clinically suspicious abnormality. N.B. : The above information has been verbally conveyed by Harry Duffy MD to Dr Garcia, Referring Physician, on 08/30/2015 15:17:29 (ET). Electronically Signed: Harry Duffy MD at 15:09 EDT Tel [phone], Service support [phone], N.B. : The above information has been verbally conveyed by Harry Duffy MD to Dr Garcia, Referring Physician, on 08/30/2015 15:17:29 (ET). CC: Philly Garcia MD Electrolysis Operator: Signed Philly Garcia Work Phone: Start: 08-30-2015 End: 08-30-2015 Breast Limited Unilateral Comments: See Note; NOTES: [facility] Services [address] [place] [address] Verdana 4d Breast Limited Unilateral MR#: [id number] Acct: [id number] Name: JOE HAYWOOD Rep #: [id number] : 1970 F 45 From: Harry Duffy MD PCP: Philly Garcia MD Status: REG CLI Study: Breast Limited Unilateral Date of Exam: 08/30/15 Exam# [id number] Ordering Dr: Philly Garcia MD STUDY: ULTRASOUND BREAST - LEFT REASON FOR EXAM: Female, 45 years old. Palpable lump left breast. TECHNIQUE: Axial and longitudinal images of the LEFT breast were performed with a high resolution ultrasound transducer. COMPARISON: Comparison is made with prior mammogram done earlier in the day. FINDINGS: LEFT Breast: There is a 3.7 cm x 2.0 cm x 3.7 cm spiculated hypoechoic solid mass at the 12:00 position of the breast a 1 cm from the nipple. This also evidence of a 1.8 cm x 1.2 cm x 1.7 cm hypoechoic irregular nodular density at the 7:00 position the breast at 3 cm from the nipple. IMPRESSION: Suspicious abnormalities as described. A biopsy is strongly recommended. ASSESSMENT CATEGORY: BIRADS Category 5: Highly Suggestive of Malignancy - Appropriate Action Should Be Taken. A letter regarding these results will be sent to the patient by the facility within 30 days. Electronically Signed: Harry Duffy MD at 15:10 EDT Tel [phone], Service support [phone], CC: Philly Garcia MD Electrolysis Operator: Signed Philly Garcia Work Phone: Laparoscopy surg partial nephrectomy MALENA Mcneill Plan of Treatment Date Care Activity Detail Author Start: 08-26-2031 Colonoscopy COLONOSCOPY [facility] Start: 08-26-2031 COLORECTAL CANCER SCREENING COLORECTAL CANCER SCREENING [facility] Start: 10-27-2024 DIABETES SCREEN DIABETES SCREEN [facility] Start: 09-08-2024 DIABETES SCREEN DIABETES SCREEN [facility] Start: 08-27-2024 DIABETES SCREEN DIABETES SCREEN [facility] Start: 02-28-2025 DIABETES SCREEN DIABETES SCREEN [facility] Start: 08-27-2022 Adult depression screening assessment DEPRESSION SCREENING [facility] Start: 08-25-2022 Colonoscopy COLONOSCOPY [facility] Start: 08-25-2022 COLORECTAL CANCER SCREENING COLORECTAL CANCER SCREENING [facility] Start: 05-17-2022 DEPRESSION ASSESSMENT DEPRESSION ASSESSMENT [facility] Start: 01-15-2022 Influenza vaccination [facility] Start: 10-27-2021 End: 12-27-2021 CBC W Auto Differential panel - Blood CBC + DIFF Lab STAT Malignant neoplasm of overlapping sites of left breast in female, estrogen receptor positive (HCC) Liver metastasis (HCC) Bone metastases (HCC) Expected: 10/27/2021, Expires: 12/27/2021 [facility] Work Phone: Immunizations Immunization Date Immunization Notes Care Provider Brian cruz 03-26-2020 influenza, injectabl e, quadrivalent, preservative free Zackery Ramirez MD Work Phone: [facility] 05-05-2019 influenza, injectabl e, quadrivalent, preservative free Zackery Ramirez MD Work Phone: [facility] Payers Date Payer Category Payer Unknown 2018 Unknown MMO MMO [employer] [id number] 2018-Present [phone] [address] [place] [id number] PPO [id number] Social History Date Type Detail Facility Start: 08-30-2015 End: 09-12-2015 Tobacco smoking status NHIS Never smoked tobacco [facility] Start: 08-30-2015 End: 09-12-2015 Tobacco use and exposure Smokeless tobacco non-user [facility] Start: 08-25-2021 End: 09-05-2021 Alcohol intake Current non-drinker of alcohol (finding) [facility] Start: 1970 Sex Assigned At Not on file [facility] Start: 08-15-2021 End: 08-27-2021 Exposure to SARS-CoV-2 (event) Not sure [facility] Work Phone: Medical Equipment Procedure Code Equipment Code Equipment Origin al Text Equipment Identifier Dates [place] [facility] 8fr Plastic Polyurethane Implantable Infusion - [id number] Start: 09-17-2015 Clinical Notes 03-15-2017 to 07-31-2022 Telephone Encounter - Karen Parsons LPN - 07/31/2022 8:26 AM EDTTelephone Encounter - Tommy French DO - 12/17/2021 8:07 AM EDTTelephone Encounter - Diana Harley - 12/16/2021 4:51 PM EDT Note Date & Type Note Facility 07-31-2022 Miscellaneous Notes Formattin g of this note might be different from the original. No longer under this prescriber's care. Karen Parsons LPN documented in this encounter [facility] 12-17-2021 Miscellaneous Notes Yes, I was aware of that. Tommy French DO Pt called regarding future appointments. She has transferred care to the infusion center at the [facility] and will no longer need scheduled here. documented in this encounter [facility] 10-23-2021 Miscellaneous Notes Tried to reach pt, went, to , left a message regarding information below. Selam Daugherty BRANT Owens is scheduled at 3:30 for her Zometa treatments (per her request), however, labwork takes 45 min-1hour , could you please advise her she will need to come in for labs at 2:30 - 3:00. Thank you! documented in this encounter [facility] 06-09-2022 Miscellaneous Notes Patient has been identified by name and date of : Yes Pending Prescriptions Disp Refills CAPECITABINE 500 MG TABLET 4 Sig: TAKE 2 TABLETS (1,000 MG) BY MOUTH TWICE DAILY FOR 14 DAYS ON AND 7 DAYS OFF EVERY 21 DAY CYCLE. KAUSHAL: No RX INSTRUCTIONS: Patient aware RX will be sent to pharmacy. No need to notify patient. Viky Hogan LPN documented in this encounter [facility] 09-03-2021 Miscellaneous Notes Patient will begin next cycle of Xeloda 09/10/2021. Leave labs scheduled as is. Patient is aware. Karen Parsons LPN Left message for patient to contact this nurse to confirm Xeloda off week. Karen Parsons LPN documented in this encounter [facility] 09-02-2021 Miscellaneous Notes Spoke with patient to schedule. Patient expressed concern over frequency of appointments. Patient to reach out to Dr. French directly. Please keep this note open until Dr. French and patient converse. Mandy Corral Second attempt to contact patient to schedule - left voicemail. When patient calls, please message and warm transfer to [facility] PSS for scheduling of below appointments. Mandy Corral Left message for patient to return call. When patient calls, please schedule Q3WK CBC/CMP(PORT)* on off weeks for Xeloda and an Est Pat w/ Chemo with Dr. French in approx. 6 weeks. Once scheduled, document and route to P [facility] HEM/ONC PSR. Mandy Corral documented in this encounter [facility] 08-27-2021 Note HNO ID: [id number] Author: Tommy French, DO Service: ? Author Type: Physician Type: Progress Notes Filed: 08/27/2021 9:46 AM Note Text: Diagnosis: 1) Breast cancer. 2) Right renal cancer. HPI: Patient 51-year-old female who had a past medical history significant only for anemia. She appreciated a mass in her left breast. She presented to Dr. Kwon for workup. She appreciated mass--about 2-3 months at most prior to presentation. At first thought if may have been a cyst because it fluctuated with menstrual cycles. Patient underwent a left breast needle core biopsy as well as a punch biopsy of the protruding tumor. The first specimen demonstrated invasive ductal carcinoma, nuclear grade 2. The punch biopsy demonstrated invasive ductal carcinoma, nuclear grade 3 with tumor present in the deeper half of the dermis, but no involvement of the superficial dermis or epidermis. Dermal lymphovascular invasion was not observed. The tumor specimen was ER/AR positive (greater than 95%, moderate) and AR positive (27%, weak). The tumor was HER-2 [address] C/A/P 09/19/2015: Significant for osteolytic lesions in the RIGHT first rib, largest about 0.7 x 1.4 cm in diameter. Linear lucency through this lesion with callus suggests subacute fracture. Osteolytic lesion RIGHT T6 body about 1.3 cm in diameter consistent with a metastasis. Moderate compressive deformity T8 vertebral body. There are a few small nonspecific osteolytic lucencies in the more inferior vertebral bodies less than 1 cm in diameter. There is a well-defined osteolytic lucency in the LEFT humeral head about 1.8 cm in diameter without associated sclerosis. Liver: There is a round mildly heterogeneous density in the dome of hepatic segment 7 of about 1 cm in diameter (series 4 image 14 ), with peripheral enhancement. In the anterior aspect of the buttocks for there is a low-attenuation density 6 mm in diameter. Similar sized density lateral aspect segment 8 (image 19). Kidneys: There is an exophytic mass along the medial aspect of the lower pole of the RIGHT kidney is a 1.1 x 0.9 cm in diameter as. This mass has central attenuation of about 60 Hounsfield units and peripheral attenuation of about 105 Hounsfield units. There are also 2 intracortical low attenuation densities in the RIGHT kidney less than or equal to 6 mm in diameter. There are a few low-attenuation LEFT renal masses less than or equal to 1.5 cm in diameter. Previous therapy: 1) Neoadjuvant AC followed by Taxol. 2) Left mastectomy, lymphatic mapping, sentinel node biopsy, additional juan dissection, and right prophylactic mastectomy 02/28/2016. 3) Exam under anesthesia, diagnostic laparoscopy, bilateral salpingo- oophorectomy with concurrent mastectomy 02/28/2016. Pathology: 1. Right and left fallopian tubes, bilateral salpingo-oophorectomy (A) - Unremarkable bilateral ovaries and fallopian tubes. 2. Left breast, mastectomy (B) Multifocal residual invasive ductal carcinoma with treatment effect, see synoptic report. - Atypical lobular hyperplasia with treatment effect. 3. Left additional axillary lymph nodes, excision (C) Single tumor deposit, 3 mm in greatest dimension, within the axillary fat. - Three lymph nodes, negative for metastatic carcinoma (0/3). 4. Left axillary sentinel lymph nodes, axillary dissection (D) Two of five lymph nodes, positive for metastatic carcinoma (2/5) with treatment effect. 5. Right breast, mastectomy (E) - Breast tissue with stromal fibrosis and columnar cell change. - Unremarkable nipple. Underwent robotic-assisted laparoscopic Right partial nephrectomy 02/2017. Pathology: Kidney, right, partial nephrectomy: - Renal cell carcinoma, clear cell type, ISUP grade 2. - The margins are free of tumor. - See diagnostic template. SYNOPTIC REPORT OF [facility] PATHOLOGIC FINDINGS RIGHT RENAL MASS: ? ? ?KIDNEY:NEPHRECTOMY Specimen: ? ? ? Kidney Procedure: ? ? ? Partial nephrectomy Specimen Laterality: ? ? ? Right Tumor Site: ? ? ? Not specified Tumor Focality: ? ? ? Unifocal Histologic Type: ? ? ? Clear cell renal cell carcinoma Sarcomatoid Features: ? ? ? Not identified Rhabdoid Features: ? ? ? Not identified Histologic Grade (ISUP Nucleolar Grade): ? ? ? G2: Nucleoli conspicuous and eosinophilic at 400x magnification, visible but not prominent at 100x magnification Tumor Necrosis: ? ? ? Not identified Tumor Size: ? ? ? Greatest dimension: 1.7 cm ? ? ? Additional dimension: 1.6 cm ? ? ? Additional dimension: 1.4 cm Anatomic Extent of Tumor: ? ? ? Tumor limited to kidney Margin Status: ? ? ? Uninvolved by invasive carcinoma Lymphovascular Invasion: ? ? ? Not identified Pathologic Stage Classification(pTNM, AJCC 7th Edition) TNM Descriptors: ? ? ? Not applicable Primary Tumor (pT): ? ? ? pT1a: Tumor 4 cm or less in greatest dimension, limited to the kidney Regional Lym (more content not included)... [facility] 08-27-2021 History of Presen t illness Narrative Diagnosis: 1) Breast cancer. 2) Right renal cancer. HPI: Patient 51-year-old female who had a past medical history significant only for anemia. She appreciated a mass in her left breast. She presented to Dr. Kwon for workup. She appreciated mass--about 2-3 months at most prior to presentation. At first thought if may have been a cyst because it fluctuated with menstrual cycles. Patient underwent a left breast needle core biopsy as well as a punch biopsy of the protruding tumor. The first specimen demonstrated invasive ductal carcinoma, nuclear grade 2. The punch biopsy demonstrated invasive ductal carcinoma, nuclear grade 3 with tumor present in the deeper half of the dermis, but no involvement of the superficial dermis or epidermis. Dermal lymphovascular invasion was not observed. The tumor specimen was ER/AR positive (greater than 95%, moderate) and AR positive (27%, weak). The tumor was HER-2 [address] CT C/A/P 09/19/2015: Significant for osteolytic lesions in the RIGHT first rib, largest about 0.7 x 1.4 cm in diameter. Linear lucency through this lesion with callus suggests subacute fracture. Osteolytic lesion RIGHT T6 body about 1.3 cm in diameter consistent with a metastasis. Moderate compressive deformity T8 vertebral body. There are a few small nonspecific osteolytic lucencies in the more inferior vertebral bodies less than 1 cm in diameter. There is a well-defined osteolytic lucency in the LEFT humeral head about 1.8 cm in diameter without associated sclerosis. Liver: There is a round mildly heterogeneous density in the dome of hepatic segment 7 of about 1 cm in diameter (series 4 image 14 ), with peripheral enhancement. In the anterior aspect of the buttocks for there is a low-attenuation density 6 mm in diameter. Similar sized density lateral aspect segment 8 (image 19). Kidneys: There is an exophytic mass along the medial aspect of the lower pole of the RIGHT kidney is a 1.1 x 0.9 cm in diameter as. This mass has central attenuation of about 60 Hounsfield units and peripheral attenuation of about 105 Hounsfield units. There are also 2 intracortical low attenuation densities in the RIGHT kidney less than or equal to 6 mm in diameter. There are a few low-attenuation LEFT renal masses less than or equal to 1.5 cm in diameter. Previous therapy: 1) Neoadjuvant AC followed by Taxol. 2) Left mastectomy, lymphatic mapping, sentinel node biopsy, additional juan dissection, and right prophylactic mastectomy 02/28/2016. 3) Exam under anesthesia, diagnostic laparoscopy, bilateral salpingo- oophorectomy with concurrent mastectomy 02/28/2016. Pathology: 1. Right and left fallopian tubes, bilateral salpingo-oophorectomy (A) - Unremarkable bilateral ovaries and fallopian tubes. 2. Left breast, mastectomy (B) Multifocal residual invasive ductal carcinoma with treatment effect, see synoptic report. - Atypical lobular hyperplasia with treatment effect. 3. Left additional axillary lymph nodes, excision (C) Single tumor deposit, 3 mm in greatest dimension, within the axillary fat. - Three lymph nodes, negative for metastatic carcinoma (0/3). 4. Left axillary sentinel lymph nodes, axillary dissection (D) Two of five lymph nodes, positive for metastatic carcinoma (2/5) with treatment effect. 5. Right breast, mastectomy (E) - Breast tissue with stromal fibrosis and columnar cell change. - Unremarkable nipple. Underwent robotic-assisted laparoscopic Right partial nephrectomy 02/2017. Pathology: Kidney, right, partial nephrectomy: - Renal cell carcinoma, clear cell type, ISUP grade 2. - The margins are free of tumor. - See diagnostic template. SYNOPTIC REPORT OF [facility] PATHOLOGIC FINDINGS RIGHT RENAL MASS: KIDNEY:NEPHRECTOMY Specimen: Kidney Procedure: Partial nephrectomy Specimen Laterality: Right Tumor Site: Not specified Tumor Focality: Unifocal Histologic Type: Clear cell renal cell carcinoma Sarcomatoid Features: Not identified Rhabdoid Features: Not identified Histologic Grade (ISUP Nucleolar Grade): G2: Nucleoli conspicuous and eosinophilic at 400x magnification, visible but not prominent at 100x magnification Tumor Necrosis: Not identified Tumor Size: Greatest dimension: 1.7 cm Additional dimension: 1.6 cm Additional dimension: 1.4 cm Anatomic Extent of Tumor: Tumor limited to kidney Margin Status: Uninvolved by invasive carcinoma Lymphovascular Invasion: Not identified Pathologic Stage Classification(pTNM, AJCC 7th Edition) TNM Descriptors: Not applicable Primary Tumor (pT): pT1a: Tumor 4 cm or less in greatest dimension, limited to the kidney Regional Lymph Nodes (pN): pNX: Regional lymph nodes cannot be assessed No nodes submitted or found Distant Metastasis (pM): Not applicable Previous therapy for metastatic disease: 1) Anastrozole began after surgery for bone only metastases. 2) Fulvestrant and palbociclib. Began 11/03/2017. 3) Radiation to right 7th rib in 5 fx completed 06/06/2018. 4) Exemestane/everolimus. Began 02/04/2018. Everolimus dose reduced to 7.5 mg daily as of 03/21/2018 due to severe mucositis with 10 mg dose. Current therapy: 1) Capecitabine. Began 03/27/2019. Presents for ongoing oncologic management. Interim history: Started new cycle Tuesday 08/22. Missed Wednesday the due to colonoscopy. One small polyp removed. That cycle have been delayed a week due to skin toxicity. Skin on hands much more supple now. She has more range of motion. No pain. She continues to be very active on a daily basis and is working full-time. Denies abdominal pain, specifically right upper quadrant pain. Appetite stable weight is stable. No MS pain. PMH, medications and allergies as below personally reviewed by me today. Any changes documented in appropriate section. ROS: Constitutional: Denies episodes of night sweats. Neuro: Denies HIRSCH, vertigo, dizziness and imbalance. HEENT: No recent change in voice, vision or hearing. Resp: Denies cough, wheeze and hemoptysis. Denies shortness of breath at rest. Denies HOOKS. CVS: Denies exertional chest pain, PND, orthopnea. GI: No reflux. No diarrhea. : Denies dysuria or gross hematuria. No symptoms of bladder outlet obstruction. Endo: Denies polyuria and polydipsia. Denies heat and cold intolerance. Musculoskeletal: See above. Derm: See above. Heme: Denies unusual bleeding and unexplained bruising. Psych: Normal mood. PHYSICAL EXAM: Vitals: Blood pressure 112/77, pulse 73, temperature 36.5 C (97.7 F), last menstrual period 09/20/2015. Well-appearing and in no acute distress. EYES: Sclerae are anicteric bilaterally. NECK: Supple. RESP: Clear breath sounds all throughout. CARDIOVASCULAR: Rhythm is regular. ABDOMEN: The abdomen is nondistended. There is no organomegaly. No tenderness. SKIN: Palmar surfaces of the hands are less erythematous diffusely. Mild drying and less cracking of the joint folds. No bleeding or open areas. Able to extend fingers better. 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 -She continues to tolerate capecitabine well at previous dose reduction. Skin toxicity still and issue and she is very stoic about this. Family very concerned--contentious issue for all. I advised dose reducing to 1 and 2 pills daily for now. Patient accepting of this. Plan: -Continue capecitabine at current dose of 1000 mg BID x14 days then off for a week. -CBC and CMP during her off week each cycle. -Zometa every 3 months. -OV every other cycle. -CTs in October. Portions of this documentation were copied and pasted from previous office visit notes in order to provide a cohesive continuity of the history. The note has been reviewed and edited and updated as necessary. Tommy French DO documented in this encounter [facility] 08-25-2021 Note HNO ID: [id number] Author: Jamila Frausto RN Service: ? Author Type: Registered Nurse Type: Nursing Progress Note Filed: 08/25/2021 9:42 AM Note Text: Now denies nausea. States feeling much better. Jamila Frausto RN [facility] 08-25-2021 Note HNO ID: [id number] Author: Jamila Frausto RN Service: ? Author Type: Registered Nurse Type: Nursing Progress Note Filed: 08/25/2021 8:48 AM Note Text: Pt received in PACU. Pt awake. Denies pain or nausea. Abd soft and non distended. Jamila Frausto RN [facility] 08-25-2021 Nurse Note Now denies nausea. States feeling much better. Jamila Frausto RN Back to bed. Was able to pass air rectally. States feeling better. Sipping at drink and taking some bites of saltine crackers. Jamila Frausto RN Still slightly nauseated. Feels like she needs to pass some gas rectally. Ambulated to the bathroom. Jamila Frausto RN Sat pt up in bed and suddenly became nauseated. Dr. Ramirez in procedure room-given update on patient and verbal orders received. Sister at bedside. Jamila Frausto RN Pt received in PACU. Pt awake. Denies pain or nausea. Abd soft and non distended. Jamila Frausto RN [facility] PRE-OP NURSING HAND OFF NOTE SBAR Hand off given to Mariaelena Adam RN. Hand off was communicated verbally and at the patient's bedside and all questions were answered. Jamila Frausto RN documented in this encounter [facility] 08-25-2021 History and physical note Diagnosis: 1) Breast cancer. 2) Right renal cancer. HPI: Patient 51-year-old female who had a past medical history significant only for anemia. She appreciated a mass in her left breast. She presented to Dr. Kwon for workup. She appreciated mass--about 2-3 months at most prior to presentation. At first thought if may have been a cyst because it fluctuated with menstrual cycles. Patient underwent a left breast needle core biopsy as well as a punch biopsy of the protruding tumor. The first specimen demonstrated invasive ductal carcinoma, nuclear grade 2. The punch biopsy demonstrated invasive ductal carcinoma, nuclear grade 3 with tumor present in the deeper half of the dermis, but no involvement of the superficial dermis or epidermis. Dermal lymphovascular invasion was not observed. The tumor specimen was ER/AR positive (greater than 95%, moderate) and AR positive (27%, weak). The tumor was HER-2 [address] C/A/P 09/19/2015: Significant for osteolytic lesions in the RIGHT first rib, largest about 0.7 x 1.4 cm in diameter. Linear lucency through this lesion with callus suggests subacute fracture. Osteolytic lesion RIGHT T6 body about 1.3 cm in diameter consistent with a metastasis. Moderate compressive deformity T8 vertebral body. There are a few small nonspecific osteolytic lucencies in the more inferior vertebral bodies less than 1 cm in diameter. There is a well-defined osteolytic lucency in the LEFT humeral head about 1.8 cm in diameter without associated sclerosis. Liver: There is a round mildly heterogeneous density in the dome of hepatic segment 7 of about 1 cm in diameter (series 4 image 14 ), with peripheral enhancement. In the anterior aspect of the buttocks for there is a low-attenuation density 6 mm in diameter. Similar sized density lateral aspect segment 8 (image 19). Kidneys: There is an exophytic mass along the medial aspect of the lower pole of the RIGHT kidney is a 1.1 x 0.9 cm in diameter as. This mass has central attenuation of about 60 Hounsfield units and peripheral attenuation of about 105 Hounsfield units. There are also 2 intracortical low attenuation densities in the RIGHT kidney less than or equal to 6 mm in diameter. There are a few low-attenuation LEFT renal masses less than or equal to 1.5 cm in diameter. Previous therapy: 1) Neoadjuvant AC followed by Taxol. 2) Left mastectomy, lymphatic mapping, sentinel node biopsy, additional juan dissection, and right prophylactic mastectomy 02/28/2016. 3) Exam under anesthesia, diagnostic laparoscopy, bilateral salpingo- oophorectomy with concurrent mastectomy 02/28/2016. Pathology: 1. Right and left fallopian tubes, bilateral salpingo-oophorectomy (A) - Unremarkable bilateral ovaries and fallopian tubes. 2. Left breast, mastectomy (B) Multifocal residual invasive ductal carcinoma with treatment effect, see synoptic report. - Atypical lobular hyperplasia with treatment effect. 3. Left additional axillary lymph nodes, excision (C) Single tumor deposit, 3 mm in greatest dimension, within the axillary fat. - Three lymph nodes, negative for metastatic carcinoma (0/3). 4. Left axillary sentinel lymph nodes, axillary dissection (D) Two of five lymph nodes, positive for metastatic carcinoma (2/5) with treatment effect. 5. Right breast, mastectomy (E) - Breast tissue with stromal fibrosis and columnar cell change. - Unremarkable nipple. Underwent robotic-assisted laparoscopic Right partial nephrectomy 02/2017. Pathology: Kidney, right, partial nephrectomy: - Renal cell carcinoma, clear cell type, ISUP grade 2. - The margins are free of tumor. - See diagnostic template. SYNOPTIC REPORT OF [facility] RIGHT RENAL MASS: KIDNEY:NEPHRECTOMY Specimen: Kidney Procedure: Partial nephrectomy Specimen Laterality: Right Tumor Site: Not specified Tumor Focality: Unifocal Histologic Type: Clear cell renal cell carcinoma Sarcomatoid Features: Not identified Rhabdoid Features: Not identified Histologic Grade (ISUP Nucleolar Grade): G2: Nucleoli conspicuous and eosinophilic at 400x magnification, visible but not prominent at 100x magnification Tumor Necrosis: Not identified Tumor Size: Greatest dimension: 1.7 cm Additional dimension: 1.6 cm Additional dimension: 1.4 cm Anatomic Extent of Tumor: Tumor limited to kidney Margin Status: Uninvolved by invasive carcinoma Lymphovascular Invasion: Not identified Pathologic Stage Classification(pTNM, AJCC 7th Edition) TNM Descriptors: Not applicable Primary Tumor (pT): pT1a: Tumor 4 cm or less in greatest dimension, limited to the kidney Regional Lymph Nodes (pN): pNX: Regional lymph nodes cannot be assessed No nodes submitted or found Distant Metastasis (pM): Not applicable Previous therapy for metastatic disease: 1) Anastrozole began after surgery for bone only metastases. 2) Fulvestrant and palbociclib. Began 11/03/2017. 3) Radiation to right 7th rib in 5 fx completed 06/06/2018. 4) Exemestane/everolimus. Began 02/04/2018. Everolimus dose reduced to 7.5 mg daily as of 03/21/2018 due to severe mucositis with 10 mg dose. Current therapy: 1) Capecitabine. Began 03/27/2019. Presents for ongoing oncologic management. Interim history: She again has no complaints today. She has ongoing skin toxicity from capecitabine albeit not as bad as it had been in the past prior to dose reduction. Her daughter is here with her at today's visit and she would like to see her mom have a bit of a break from chemotherapy due to the skin toxicity. She endorses that her mom has a hard time walking sometimes because of the involvement of the feet. Patient has been very reluctant to lower the dose any further or take any further delay in therapy. She denies mouth sores. No other side effects. PMH, medications and allergies as below personally reviewed by me today. Any changes documented in appropriate section. ROS: Constitutional: Denies episodes of night sweats. Neuro: Denies HIRSCH, vertigo, dizziness and imbalance. HEENT: No recent change in voice, vision or hearing. Resp: Denies cough, wheeze and hemoptysis. Denies shortness of breath at rest. Denies HOOKS. CVS: Denies exertional chest pain, PND, orthopnea. GI: No reflux. No diarrhea. : Denies dysuria or gross hematuria. No symptoms of bladder outlet obstruction. Endo: Denies polyuria and polydipsia. Denies heat and cold intolerance. Musculoskeletal: See above. Derm: See above. Heme: Denies unusual bleeding and unexplained bruising. Psych: Normal mood. PHYSICAL EXAM: Vitals: Blood pressure 127/82, pulse 72, temperature 36.4 C (97.6 F), temperature source Temporal, weight 60.8 kg (134 lb), last menstrual period 09/20/2015. Well-appearing and in no acute distress. EYES: Sclerae are anicteric bilaterally. NECK: Supple. RESP: Clearance. Breath sounds all throughout. CARDIOVASCULAR: Rhythm is regular. ABDOMEN: The abdomen is nondistended. There is no organomegaly. No tenderness. SKIN: Palmar surfaces of the hands are less erythematous diffusely. Mild drying and cracking of the joint folds. No bleeding or open areas. Able to extend fingers better. 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 -She continues to tolerate capecitabine well at previous dose reduction. Skin toxicity still and issue and she is very stoic about this. Family very concerned--contentious issue for all. I advised dose reducing to 1 and 2 pills daily for now. Patient accepting of this. -Reviewed CTs. SD. Plan: -Delayed neck start of capecitabine a week and then continue at current dose of 1000 mg BID x14 days then off for a week. -Zometa every 3 months. -OV every other cycle. -CTs in 3 months. Portions of this documentation were copied and pasted from previous office visit notes in order to provide a cohesive continuity of the history. The note has been reviewed and edited and updated as necessary. Tommy French DO UPDATED HISTORY AND PHYSICAL EXAMINATION SERVICE DATE: 08/25/2021 SERVICE TIME: 7:48 AM PHYSICAL EXAM MUST BE COMPLETED ON ADMISSION The History and Physical (completed in the past 30 days) has been reviewed and the patient has been examined. The contents accurately reflect the patient's condition with the following additions or revisions since the H&P was completed. Examination indicates no changes. This H&P can be found in the attached. SIGNATURE: Zackery Ramirez III, MD PATIENT NAME: Joe Haywood DATE: August 25, 2021 TIME: 7:48 AM documented in this encounter [facility] 07-21-2021 Note HNO ID: [id number] Author: Tommy French DO Service: ? Author Type: Physician Type: Progress Notes Filed: 07/22/2021 1:52 PM Note Text: Diagnosis: 1) Breast cancer. 2) Right renal cancer. HPI: Patient 51-year-old female who had a past medical history significant only for anemia. She appreciated a mass in her left breast. She presented to Dr. Kwon for workup. She appreciated mass--about 2-3 months at most prior to presentation. At first thought if may have been a cyst because it fluctuated with menstrual cycles. Patient underwent a left breast needle core biopsy as well as a punch biopsy of the protruding tumor. The first specimen demonstrated invasive ductal carcinoma, nuclear grade 2. The punch biopsy demonstrated invasive ductal carcinoma, nuclear grade 3 with tumor present in the deeper half of the dermis, but no involvement of the superficial dermis or epidermis. Dermal lymphovascular invasion was not observed. The tumor specimen was ER/AR positive (greater than 95%, moderate) and AR positive (27%, weak). The tumor was HER-2 1+. CT C/A/P 09/19/2015: Significant for osteolytic lesions in the RIGHT first rib, largest about 0.7 x 1.4 cm in diameter. Linear lucency through this lesion with callus suggests subacute fracture. Osteolytic lesion RIGHT T6 body about 1.3 cm in diameter consistent with a metastasis. Moderate compressive deformity T8 vertebral body. There are a few small nonspecific osteolytic lucencies in the more inferior vertebral bodies less than 1 cm in diameter. There is a well-defined osteolytic lucency in the LEFT humeral head about 1.8 cm in diameter without associated sclerosis. Liver: There is a round mildly heterogeneous density in the dome of hepatic segment 7 of about 1 cm in diameter (series 4 image 14 ), with peripheral enhancement. In the anterior aspect of the buttocks for there is a low-attenuation density 6 mm in diameter. Similar sized density lateral aspect segment 8 (image 19). Kidneys: There is an exophytic mass along the medial aspect of the lower pole of the RIGHT kidney is a 1.1 x 0.9 cm in diameter as. This mass has central attenuation of about 60 Hounsfield units and peripheral attenuation of about 105 Hounsfield units. There are also 2 intracortical low attenuation densities in the RIGHT kidney less than or equal to 6 mm in diameter. There are a few low-attenuation LEFT renal masses less than or equal to 1.5 cm in diameter. Previous therapy: 1) Neoadjuvant AC followed by Taxol. 2) Left mastectomy, lymphatic mapping, sentinel node biopsy, additional juan dissection, and right prophylactic mastectomy 02/28/2016. 3) Exam under anesthesia, diagnostic laparoscopy, bilateral salpingo- oophorectomy with concurrent mastectomy 02/28/2016. Pathology: 1. Right and left fallopian tubes, bilateral salpingo-oophorectomy (A) - Unremarkable bilateral ovaries and fallopian tubes. 2. Left breast, mastectomy (B) Multifocal residual invasive ductal carcinoma with treatment effect, see synoptic report. - Atypical lobular hyperplasia with treatment effect. 3. Left additional axillary lymph nodes, excision (C) Single tumor deposit, 3 mm in greatest dimension, within the axillary fat. - Three lymph nodes, negative for metastatic carcinoma (0/3). 4. Left axillary sentinel lymph nodes, axillary dissection (D) Two of five lymph nodes, positive for metastatic carcinoma (2/5) with treatment effect. 5. Right breast, mastectomy (E) - Breast tissue with stromal fibrosis and columnar cell change. - Unremarkable nipple. Underwent robotic-assisted laparoscopic Right partial nephrectomy 02/2017. Pathology: Kidney, right, partial nephrectomy: - Renal cell carcinoma, clear cell type, ISUP grade 2. - The margins are free of tumor. - See diagnostic template. SYNOPTIC REPORT OF [facility] FIND[facility] RIGHT RENAL MASS: ? ? ?KIDNEY:NEPHRECTOMY Specimen: ? ? ? Kidney Procedure: ? ? ? Partial nephrectomy Specimen Laterality: ? ? ? Right Tumor Site: ? ? ? Not specified Tumor Focality: ? ? ? Unifocal Histologic Type: ? ? ? Clear cell renal cell carcinoma Sarcomatoid Features: ? ? ? Not identified Rhabdoid Features: ? ? ? Not identified Histologic Grade (ISUP Nucleolar Grade): ? ? ? G2: Nucleoli conspicuous and eosinophilic at 400x magnification, visible but not prominent at 100x magnification Tumor Necrosis: ? ? ? Not identified Tumor Size: ? ? ? Greatest dimension: 1.7 cm ? ? ? Additional dimension: 1.6 cm ? ? ? Additional dimension: 1.4 cm Anatomic Extent of Tumor: ? ? ? Tumor limited to kidney Margin Status: ? ? ? Uninvolved by invasive carcinoma Lymphovascular Invasion: ? ? ? Not identified Pathologic Stage Classification(pTNM, AJCC 7th Edition) TNM Descriptors: ? ? ? Not applicable Primary Tumor (pT): ? ? ? pT1a: Tumor 4 cm or less in greatest dimension, limited to the kidney Regional Lymp (more content not included)... [facility] 06-09-2021 Note HNO ID: [id number] Author: Tommy French, DO Service: ? Author Type: Physician Type: Progress Notes Filed: 06/09/2021 4:36 PM Note Text: AMBULATORY TELEPHONE VISIT Joe Haywood has consented to this telephone encounter. Persons Present: patient Diagnosis: 1) Breast cancer. 2) Right renal cancer. HPI: Patient 51-year-old female who had a past medical history significant only for anemia. She appreciated a mass in her left breast. She presented to Dr. Kwon for workup. She appreciated mass--about 2-3 months at most prior to presentation. At first thought if may have been a cyst because it fluctuated with menstrual cycles. Patient underwent a left breast needle core biopsy as well as a punch biopsy of the protruding tumor. The first specimen demonstrated invasive ductal carcinoma, nuclear grade 2. The punch biopsy demonstrated invasive ductal carcinoma, nuclear grade 3 with tumor present in the deeper half of the dermis, but no involvement of the superficial dermis or epidermis. Dermal lymphovascular invasion was not observed. The tumor specimen was ER/AR positive (greater than 95%, moderate) and AR positive (27%, weak). The tumor was HER-2 1[address] CT C/A/P 09/19/2015: Significant for osteolytic lesions in the RIGHT first rib, largest about 0.7 x 1.4 cm in diameter. Linear lucency through this lesion with callus suggests subacute fracture. Osteolytic lesion RIGHT T6 body about 1.3 cm in diameter consistent with a metastasis. Moderate compressive deformity T8 vertebral body. There are a few small nonspecific osteolytic lucencies in the more inferior vertebral bodies less than 1 cm in diameter. There is a well-defined osteolytic lucency in the LEFT humeral head about 1.8 cm in diameter without associated sclerosis. Liver: There is a round mildly heterogeneous density in the dome of hepatic segment 7 of about 1 cm in diameter (series 4 image 14 ), with peripheral enhancement. In the anterior aspect of the buttocks for there is a low-attenuation density 6 mm in diameter. Similar sized density lateral aspect segment 8 (image 19). Kidneys: There is an exophytic mass along the medial aspect of the lower pole of the RIGHT kidney is a 1.1 x 0.9 cm in diameter as. This mass has central attenuation of about 60 Hounsfield units and peripheral attenuation of about 105 Hounsfield units. There are also 2 intracortical low attenuation densities in the RIGHT kidney less than or equal to 6 mm in diameter. There are a few low-attenuation LEFT renal masses less than or equal to 1.5 cm in diameter. Previous therapy: 1) Neoadjuvant AC followed by Taxol. 2) Left mastectomy, lymphatic mapping, sentinel node biopsy, additional juan dissection, and right prophylactic mastectomy 02/28/2016. 3) Exam under anesthesia, diagnostic laparoscopy, bilateral salpingo- oophorectomy with concurrent mastectomy 02/28/2016. Pathology: 1. Right and left fallopian tubes, bilateral salpingo-oophorectomy (A) - Unremarkable bilateral ovaries and fallopian tubes. 2. Left breast, mastectomy (B) Multifocal residual invasive ductal carcinoma with treatment effect, see synoptic report. - Atypical lobular hyperplasia with treatment effect. 3. Left additional axillary lymph nodes, excision (C) Single tumor deposit, 3 mm in greatest dimension, within the axillary fat. - Three lymph nodes, negative for metastatic carcinoma (0/3). 4. Left axillary sentinel lymph nodes, axillary dissection (D) Two of five lymph nodes, positive for metastatic carcinoma (2/5) with treatment effect. 5. Right breast, mastectomy (E) - Breast tissue with stromal fibrosis and columnar cell change. - Unremarkable nipple. Underwent robotic-assisted laparoscopic Right partial nephrectomy 02/2017. Pathology: Kidney, right, partial nephrectomy: - Renal cell carcinoma, clear cell type, ISUP grade 2. - The margins are free of tumor. - See diagnostic template. SYNOPTIC REPORT OF [facility] FIND[facility] RIGHT RENAL MASS: ? ? ?KIDNEY:NEPHRECTOMY Specimen: ? ? ? Kidney Procedure: ? ? ? Partial nephrectomy Specimen Laterality: ? ? ? Right Tumor Site: ? ? ? Not specified Tumor Focality: ? ? ? Unifocal Histologic Type: ? ? ? Clear cell renal cell carcinoma Sarcomatoid Features: ? ? ? Not identified Rhabdoid Features: ? ? ? Not identified Histologic Grade (ISUP Nucleolar Grade): ? ? ? G2: Nucleoli conspicuous and eosinophilic at 400x magnification, visible but not prominent at 100x magnification Tumor Necrosis: ? ? ? Not identified Tumor Size: ? ? ? Greatest dimension: 1.7 cm ? ? ? Additional dimension: 1.6 cm ? ? ? Additional dimension: 1.4 cm Anatomic Extent of Tumor: ? ? ? Tumor limited to kidney Margin Status: ? ? ? Uninvolved by invasive carcinoma Lymphovascular Invasion: ? ? ? Not identified Pathologic Stage Classification(pTNM, AJCC 7th Edition) TNM Descriptors: ? ? ? Not applicable (more content not included)... [facility] 05-19-2021 Note HNO ID: [id number] Author: Reema Rahman, TEODORA Service: ? Author Type: Registered Nurse Type: Progress Notes Filed: 05/19/2021 4:21 PM Note Text: Patient is here for IVAD port flush/blood draw per Nursing Allison protocol. IVAD is located in right upper chest. Site cleansed with Chloraprep IVAD accessed with a #20 gauge 3/4 non-coring Gripper needle Flush with 5cc's Normal Saline. Blood Return: Good. 10 cc's blood aspirated and discarded. Blood drawn for CBC, CMP and Gold top. Flushed with: 20 ml Normal Saline and 5 ml Heparin Lock Flush. Non-coring needle removed. Paper tape applied to puncture site. Site negative for redness, edema or tenderness. Patient tolerated procedure well. [facility] 05-08-2021 Note HNO ID: [id number] Author: Norma Prakash PA-C Service: ? Author Type: Physician Saddle Stitch Operator Type: Progress Notes Filed: 05/08/2021 3:47 PM Note Text: HISTORY AND PHYSICAL Joe Haywood 1970 REFERRING PHYSICIAN: Tommy French DO CHIEF COMPLAINT: Consult (Colonoscopy) HPI: The patient is a 51 year old female referred for endoscopy. Joe notes no colon complaints. Patient denies any change in bowel habits, weight changes, blood in stools, black tarry stools or abdominal pain. Denies family history of colon issues. The patient notes no upper GI complaints. Joe has not undergone prior endoscopy. Patient's past medical history is significant for breast cancer for which she follows with Dr. French. Patient denies chest pain, shortness of breath or recent hospitalizations. Denies problems with sedation in the past. PAST MEDICAL HISTORY Diagnosis Date - Anemia - Breast cancer (HCC) 08/2015 PAST SURGICAL HISTORY Procedure Laterality Date - BREAST BIOPSY CORE Left 08/30/2015 intraductal carcinoma - MASTECTOMY, SIMPLE, COMPLETE Bilateral 2015 - REMOVAL OF OVARY(S) - TUBAL LIGATION HX 05/17/1998 - TUNNEL VAD W SUB Q PORT >=5 09/17/2015 right subclavian Current Outpatient Medications Medication Sig - potassium chloride ER (KLOR-CON M20) 20 mEq tablet Take 1 tablet by mouth twice daily. - capecitabine (XELODA) 500 mg tablet TAKE 2 TABLETS (1,000 MG) BY MOUTH TWICE DAILY FOR 14 DAYS ON AND 7 DAYS OFF EVERY 21 DAY CYCLE. - famotidine (PEPCID) 20 mg tablet Take 1 tablet by mouth daily at bedtime. - iv contrast (will be provided with radiology test) CT Chest ABD/PEL-Inject, intravenously, once for 1 dose.No IV access, insert saline lock prior to the beginning of sedation, infusion, injection of imaging exam. Discontinue saline lock post exam. If Pt. has a central line or IVAD, may access for administration according to line specific nursing protocol. Once exam is complete flush line and de-access according to line specific nursing protocol in the CT contrast administration guidelines link. - enteric contrast (will be provided with radiology test) For CT CHESTABD/PEL W IVCON Routine order Administer, As Directed One Time Only, via Oral, Rectal, both Oral and Rectal, Enteric Tube, Stoma or Indwelling Catheter, Enteric Contrast as designated per enteric contrast guidelines - clobetasol (TEMOVATE) 0.05 % cream Apply to affected area twice daily. (hands and feet; do not use on face or get in eyes). - apixaban (ELIQUIS) 5 mg tab(s) Take 2 tablets twice a day for 7 days then 1 tablet twice a day thereafter. - 0.9 % sodium chloride (0.9% NACL) Access implanted vascular access device (IVAD) as needed for flush, blood draw or treatment. Flush IVAD with 10-20 mL NS every 4 weeks and PRN when IVAD not in use. - heparin 100 unit/mL injection Access implanted vascular access device (IVAD) as needed for flush, blood draw or treatment. Before de-accessing port, flush with 10-20ml normal saline and follow with 5 mL heparin (100 units/mL) (if no heparin allergy). De-access port on treatment completion. - peg 3350-Electrolytes (GOLYTELY) 236-22.74-6.74 -5.86 gram suspension Take 4,000 mL by mouth one time only for 1 dose. No current facility-administered medications for this visit. ALLERGIES: Percocet [Oxycodone-Acetaminophen] PERSONAL HISTORY: Social History Tobacco Use - Smoking status: Never Smoker - Smokeless tobacco: Never Used Vaping Use - Vaping Use: Never used Substance Use Topics - Alcohol use: No - Drug use: No FAMILY HISTORY: FAMILY HISTORY Problem Relation Age of Onset - Prostate Cancer Maternal Grandfather Bone Mets - Alzheimer's Disease Paternal Grandmother - Heart Paternal Grandfather - Thyroid Maternal Grandmother - other (Lung Cancer) Maternal Aunt - Colon Cancer Maternal Uncle - other (Lymphoma) Maternal Uncle - Hypertension Father - Hyperlipidemia Father - Diabetes Mother - Hyperlipidemia Mother - Thyroid Mother REVIEW OF SYMPTOMS: The review of systems data was entered by the nurse and reviewed by nj Nursing Notes: Tiff Wayne 05/08/2021 2:36 PM Signed REVIEW OF SYSTEMS: General: The patient denies fatigue, denies weight loss, denies weight gain, denies feeling hot, and denies feelings of cold. Eyes: The patient denies glaucoma, denies eye injury/surgery, does not wear glasses or contacts. Ear/Nose/Throat: The patient denies allergies, denies hayfever, denies ear infections, and denies bloody noses. Cardiovascular: The patient denies chest pain, denies heart disease, denies high blood pressure,denies cardiac stent, denies prior heart attack, denies irregular heart beat, denies high cholesterol, denies poor circulation, denies heart failure, other cardiac issues, denies claudication, denies cold feet, denies peripheral arterial stent. Respiratory: The patient denies tuberculosis, denies pneumonia, (more content not included)... [facility] 04-28-2021 Note HNO ID: [id number] Author: Tommy French, DO Service: ? Author Type: Physician Type: Progress Notes Filed: 04/28/2021 8:29 PM Note Text: Diagnosis: 1) Breast cancer. 2) Right renal cancer. HPI: Patient 51-year-old female who had a past medical history significant only for anemia. She appreciated a mass in her left breast. She presented to Dr. Kwon for workup. She appreciated mass--about 2-3 months at most prior to presentation. At first thought if may have been a cyst because it fluctuated with menstrual cycles. Patient underwent a left breast needle core biopsy as well as a punch biopsy of the protruding tumor. The first specimen demonstrated invasive ductal carcinoma, nuclear grade 2. The punch biopsy demonstrated invasive ductal carcinoma, nuclear grade 3 with tumor present in the deeper half of the dermis, but no involvement of the superficial dermis or epidermis. Dermal lymphovascular invasion was not observed. The tumor specimen was ER/AR positive (greater than 95%, moderate) and AR positive (27%, weak). The tumor was HER-[address] C/A/P 09/19/2015: Significant for osteolytic lesions in the RIGHT first rib, largest about 0.7 x 1.4 cm in diameter. Linear lucency through this lesion with callus suggests subacute fracture. Osteolytic lesion RIGHT T6 body about 1.3 cm in diameter consistent with a metastasis. Moderate compressive deformity T8 vertebral body. There are a few small nonspecific osteolytic lucencies in the more inferior vertebral bodies less than 1 cm in diameter. There is a well-defined osteolytic lucency in the LEFT humeral head about 1.8 cm in diameter without associated sclerosis. Liver: There is a round mildly heterogeneous density in the dome of hepatic segment 7 of about 1 cm in diameter (series 4 image 14 ), with peripheral enhancement. In the anterior aspect of the buttocks for there is a low-attenuation density 6 mm in diameter. Similar sized density lateral aspect segment 8 (image 19). Kidneys: There is an exophytic mass along the medial aspect of the lower pole of the RIGHT kidney is a 1.1 x 0.9 cm in diameter as. This mass has central attenuation of about 60 Hounsfield units and peripheral attenuation of about 105 Hounsfield units. There are also 2 intracortical low attenuation densities in the RIGHT kidney less than or equal to 6 mm in diameter. There are a few low-attenuation LEFT renal masses less than or equal to 1.5 cm in diameter. Previous therapy: 1) Neoadjuvant AC followed by Taxol. 2) Left mastectomy, lymphatic mapping, sentinel node biopsy, additional juan dissection, and right prophylactic mastectomy 02/28/2016. 3) Exam under anesthesia, diagnostic laparoscopy, bilateral salpingo- oophorectomy with concurrent mastectomy 02/28/2016. Pathology: 1. Right and left fallopian tubes, bilateral salpingo-oophorectomy (A) - Unremarkable bilateral ovaries and fallopian tubes. 2. Left breast, mastectomy (B) Multifocal residual invasive ductal carcinoma with treatment effect, see synoptic report. - Atypical lobular hyperplasia with treatment effect. 3. Left additional axillary lymph nodes, excision (C) Single tumor deposit, 3 mm in greatest dimension, within the axillary fat. - Three lymph nodes, negative for metastatic carcinoma (0/3). 4. Left axillary sentinel lymph nodes, axillary dissection (D) Two of five lymph nodes, positive for metastatic carcinoma (2/5) with treatment effect. 5. Right breast, mastectomy (E) - Breast tissue with stromal fibrosis and columnar cell change. - Unremarkable nipple. Underwent robotic-assisted laparoscopic Right partial nephrectomy 02/2017. Pathology: Kidney, right, partial nephrectomy: - Renal cell carcinoma, clear cell type, ISUP grade 2. - The margins are free of tumor. - See diagnostic template. SYNOPTIC REPORT OF [facility] PATHOLOGIC FINDINGS RIGHT RENAL MASS: ? ? ?KIDNEY:NEPHRECTOMY Specimen: ? ? ? Kidney Procedure: ? ? ? Partial nephrectomy Specimen Laterality: ? ? ? Right Tumor Site: ? ? ? Not specified Tumor Focality: ? ? ? Unifocal Histologic Type: ? ? ? Clear cell renal cell carcinoma Sarcomatoid Features: ? ? ? Not identified Rhabdoid Features: ? ? ? Not identified Histologic Grade (ISUP Nucleolar Grade): ? ? ? G2: Nucleoli conspicuous and eosinophilic at 400x magnification, visible but not prominent at 100x magnification Tumor Necrosis: ? ? ? Not identified Tumor Size: ? ? ? Greatest dimension: 1.7 cm ? ? ? Additional dimension: 1.6 cm ? ? ? Additional dimension: 1.4 cm Anatomic Extent of Tumor: ? ? ? Tumor limited to kidney Margin Status: ? ? ? Uninvolved by invasive carcinoma Lymphovascular Invasion: ? ? ? Not identified Pathologic Stage Classification(pTNM, AJCC 7th Edition) TNM Descriptors: ? ? ? Not applicable Primary Tumor (pT): ? ? ? pT1a: Tumor 4 cm or less in greatest dimension, limited to the kidney [facility] (more content not included)... [facility] 04-14-2021 Note HNO ID: [id number] Author: RT Emperatriz(R) Service: ? Author Type: Traffic Safety Administrator Type: Progress Notes Filed: 04/14/2021 12:05 PM Note Text: Radiology Service Progress Note PATIENT NAME: Joe Haywood DATE OF SERVICE: April 14, 2021 TIME: 12:05 PM PATIENT IDENTITY VERIFICATION COMPLETED USING TWO (2) IDENTIFIERS: Name and Date of confirmed by patient verbally. FALL SCREENING: Has the patient had 2 falls in the last year or 1 fall with injury or currently using an Ambulatory Assistive Device (Walker, Cane, Wheelchair, Crutches, etc.)? No PATIENT GENDER DATA: Female. status: : No status: NO. PATIENT RELEVANT IMPLANT DATA REVIEWED: Yes RADIOLOGY DEPARTMENT: CT; Exam(s) Completed: Chest Abdomen Pelvis PERIPHERAL IV DATA: power port accessed by Slyce SIGNED BY: Adore Ye RT(R) April 14, 2021 12:[address] [facility] 01-27-2021 Note HNO ID: [id number] Author: Tommy French, DO Service: ? Author Type: Physician Type: Progress Notes Filed: 01/27/2021 3:34 PM Note Text: Diagnosis: 1) Breast cancer. 2) Right renal cancer. HPI: Patient 51-year-old female who had a past medical history significant only for anemia. She appreciated a mass in her left breast. She presented to Dr. Kwon for workup. She appreciated mass--about 2-3 months at most prior to presentation. At first thought if may have been a cyst because it fluctuated with menstrual cycles. Patient underwent a left breast needle core biopsy as well as a punch biopsy of the protruding tumor. The first specimen demonstrated invasive ductal carcinoma, nuclear grade 2. The punch biopsy demonstrated invasive ductal carcinoma, nuclear grade 3 with tumor present in the deeper half of the dermis, but no involvement of the superficial dermis or epidermis. Dermal lymphovascular invasion was not observed. The tumor specimen was ER/AR positive (greater than 95%, moderate) and AR positive (27%, weak). The tumor was HER-2 [address] C/A/P 09/19/2015: Significant for osteolytic lesions in the RIGHT first rib, largest about 0.7 x 1.4 cm in diameter. Linear lucency through this lesion with callus suggests subacute fracture. Osteolytic lesion RIGHT T6 body about 1.3 cm in diameter consistent with a metastasis. Moderate compressive deformity T8 vertebral body. There are a few small nonspecific osteolytic lucencies in the more inferior vertebral bodies less than 1 cm in diameter. There is a well-defined osteolytic lucency in the LEFT humeral head about 1.8 cm in diameter without associated sclerosis. Liver: There is a round mildly heterogeneous density in the dome of hepatic segment 7 of about 1 cm in diameter (series 4 image 14 ), with peripheral enhancement. In the anterior aspect of the buttocks for there is a low-attenuation density 6 mm in diameter. Similar sized density lateral aspect segment 8 (image 19). Kidneys: There is an exophytic mass along the medial aspect of the lower pole of the RIGHT kidney is a 1.1 x 0.9 cm in diameter as. This mass has central attenuation of about 60 Hounsfield units and peripheral attenuation of about 105 Hounsfield units. There are also 2 intracortical low attenuation densities in the RIGHT kidney less than or equal to 6 mm in diameter. There are a few low-attenuation LEFT renal masses less than or equal to 1.5 cm in diameter. Previous therapy: 1) Neoadjuvant AC followed by Taxol. 2) Left mastectomy, lymphatic mapping, sentinel node biopsy, additional juan dissection, and right prophylactic mastectomy 02/28/2016. 3) Exam under anesthesia, diagnostic laparoscopy, bilateral salpingo- oophorectomy with concurrent mastectomy 02/28/2016. Pathology: 1. Right and left fallopian tubes, bilateral salpingo-oophorectomy (A) - Unremarkable bilateral ovaries and fallopian tubes. 2. Left breast, mastectomy (B) Multifocal residual invasive ductal carcinoma with treatment effect, see synoptic report. - Atypical lobular hyperplasia with treatment effect. 3. Left additional axillary lymph nodes, excision (C) Single tumor deposit, 3 mm in greatest dimension, within the axillary fat. - Three lymph nodes, negative for metastatic carcinoma (0/3). 4. Left axillary sentinel lymph nodes, axillary dissection (D) Two of five lymph nodes, positive for metastatic carcinoma (2/5) with treatment effect. 5. Right breast, mastectomy (E) - Breast tissue with stromal fibrosis and columnar cell change. - Unremarkable nipple. Underwent robotic-assisted laparoscopic Right partial nephrectomy 02/2017. Pathology: Kidney, right, partial nephrectomy: - Renal cell carcinoma, clear cell type, ISUP grade 2. - The margins are free of tumor. - See diagnostic template. SYNOPTIC REPORT OF [facility] PATHOLOGIC FINDINGS RIGHT RENAL MASS: ? ? ?KIDNEY:NEPHRECTOMY Specimen: ? ? ? Kidney Procedure: ? ? ? Partial nephrectomy Specimen Laterality: ? ? ? Right Tumor Site: ? ? ? Not specified Tumor Focality: ? ? ? Unifocal Histologic Type: ? ? ? Clear cell renal cell carcinoma Sarcomatoid Features: ? ? ? Not identified Rhabdoid Features: ? ? ? Not identified Histologic Grade (ISUP Nucleolar Grade): ? ? ? G2: Nucleoli conspicuous and eosinophilic at 400x magnification, visible but not prominent at 100x magnification Tumor Necrosis: ? ? ? Not identified Tumor Size: ? ? ? Greatest dimension: 1.7 cm ? ? ? Additional dimension: 1.6 cm ? ? ? Additional dimension: 1.4 cm Anatomic Extent of Tumor: ? ? ? Tumor limited to kidney Margin Status: ? ? ? Uninvolved by invasive carcinoma Lymphovascular Invasion: ? ? ? Not identified Pathologic Stage Classification(pTNM, AJCC 7th Edition) TNM Descriptors: ? ? ? Not applicable Primary Tumor (pT): ? ? ? pT1a: Tumor 4 cm or less in greatest dimension, limited to the kidney [facility] (more content not included)... [facility] 01-27-2021 Note HNO ID: [id number] Author: Reema Rahman RN Service: ? Author Type: Registered Nurse Type: Progress Notes Filed: 01/27/2021 3:04 PM Note Text: Patient is here for IVAD port flush/blood draw per Nursing Allison protocol. IVAD is located in right upper chest. Site cleansed with Chloraprep IVAD accessed with a #20 gauge 3/4 non-coring Gripper needle Flush with 5cc's Normal Saline. Blood Return: Good. 10 cc's blood aspirated and discarded. Blood drawn for CBC, CMP and Gold top. Flushed with: 20 ml Normal Saline. Non-coring needle left intact for further therapy. Opsite applied to puncture site. Site negative for redness, edema or tenderness. Patient tolerated procedure well. [facility] documented as of this encounter (statuses as of 08/26/2021) [facility] History of Past illness Narrative* Problem Noted Date Resolved Date Renal neoplasm 03/15/2017 10/21/2017 Malignant neoplasm of overla pping sites of left breast in female, estrogen receptor negative 02/05/2017 02/08/2017 Overview: Added automatically from request for surgery [id number] Cancer of overlapping sites of left female breas t 09/12/2015 02/08/2017 Left breast mass 08/30/2015 09/12/2015 documented as of this encounter (statuses as of 08/27/2021) [facility] History of Past illness Narrative* Problem Noted Date Resolved Date Renal neoplasm 03/15/2017 10/21/2017 Malignant neoplasm of overla pping sites of left breast in female, estrogen receptor negative 02/05/2017 02/08/2017 Overview: Added automatically from request for surgery [id number] Cancer of overlapping sites of left female breas t 09/12/2015 02/08/2017 Left breast mass 08/30/2015 09/12/2015 documented as of this encounter (statuses as of 09/03/2021) [facility] History of Past illness Narrative* Problem Noted Date Resolved Date Renal neoplasm 03/15/2017 10/21/2017 Malignant neoplasm of overla pping sites of left breast in female, estrogen receptor negative 02/05/2017 02/08/2017 Overview: Added automatically from request for surgery [id number] Cancer of overlapping sites of left female breas t 09/12/2015 02/08/2017 Left breast mass 08/30/2015 09/12/2015 documented as of this encounter (statuses as of 09/05/2021) [facility] History of Past illness Narrative* Problem Noted Date Resolved Date Renal neoplasm 03/15/2017 10/21/2017 Malignant neoplasm of overla pping sites of left breast in female, estrogen receptor negative 02/05/2017 02/08/2017 Overview: Added automatically from request for surgery [id number] Cancer of overlapping sites of left female breas t 09/12/2015 02/08/2017 Left breast mass 08/30/2015 09/12/2015 documented as of this encounter (statuses as of 09/08/2021) [facility] History of Past illness Narrative* Problem Noted Date Resolved Date Renal neoplasm 03/15/2017 10/21/2017 Malignant neoplasm of overla pping sites of left breast in female, estrogen receptor negative 02/05/2017 02/08/2017 Overview: Added automatically from request for surgery [id number] Cancer of overlapping sites of left female breas t 09/12/2015 02/08/2017 Left breast mass 08/30/2015 09/12/2015 documented as of this encounter (statuses as of 09/08/2021) [facility] History of Past illness Narrative* Problem Noted Date Resolved Date Renal neoplasm 03/15/2017 10/21/2017 Malignant neoplasm of overla pping sites of left breast in female, estrogen receptor negative 02/05/2017 02/08/2017 Overview: Added automatically from request for surgery [id number] Cancer of overlapping sites of left female breas t 09/12/2015 02/08/2017 Left breast mass 08/30/2015 09/12/2015 documented as of this encounter (statuses as of 10/23/2021) [facility] History of Past illness Narrative* Problem Noted Date Resolved Date Renal neoplasm 03/15/2017 10/21/2017 Malignant neoplasm of overla pping sites of left breast in female, estrogen receptor negative 02/05/2017 02/08/2017 Overview: Added automatically from request for surgery [id number] Cancer of overlapping sites of left female breas t 09/12/2015 02/08/2017 Left breast mass 08/30/2015 09/12/2015 documented as of this encounter (statuses as of 10/23/2021) [facility] History of Past illness Narrative* Problem Noted Date Resolved Date Renal neoplasm 03/15/2017 10/21/2017 Malignant neoplasm of overla pping sites of left breast in female, estrogen receptor negative 02/05/2017 02/08/2017 Overview: Added automatically from request for surgery [id number] Cancer of overlapping sites of left female breas t 09/12/2015 02/08/2017 Left breast mass 08/30/2015 09/12/2015 documented as of this encounter (statuses as of 10/27/2021) [facility] History of Past illness Narrative* Problem Noted Date Resolved Date Renal neoplasm 03/15/2017 10/21/2017 Malignant neoplasm of overla pping sites of left breast in female, estrogen receptor negative 02/05/2017 02/08/2017 Overview: Added automatically from request for surgery [id number] Cancer of overlapping sites of left female breas t 09/12/2015 02/08/2017 Left breast mass 08/30/2015 09/12/2015 documented as of this encounter (statuses as of 10/31/2021) [facility] History of Past illness Narrative* Problem Noted Date Resolved Date Renal neoplasm 03/15/2017 10/21/2017 Malignant neoplasm of overla pping sites of left breast in female, estrogen receptor negative 02/05/2017 02/08/2017 Overview: Added automatically from request for surgery [id number] Cancer of overlapping sites of left female breas t 09/12/2015 02/08/2017 Left breast mass 08/30/2015 09/12/2015 documented as of this encounter (statuses as of 11/10/2021) [facility] History of Past illness Narrative* Problem Noted Date Resolved Date Renal neoplasm 03/15/2017 10/21/2017 Malignant neoplasm of overla pping sites of left breast in female, estrogen receptor negative 02/05/2017 02/08/2017 Overview: Added automatically from request for surgery [id number] Cancer of overlapping sites of left female breas t 09/12/2015 02/08/2017 Left breast mass 08/30/2015 09/12/2015 documented as of this encounter (statuses as of 12/17/2021) [facility] History of Past illness Narrative* Problem Noted Date Resolved Date Renal neoplasm 03/15/2017 10/21/2017 Malignant neoplasm of overla pping sites of left breast in female, estrogen receptor negative 02/05/2017 02/08/2017 Overview: Added automatically from request for surgery [id number] Cancer of overlapping sites of left female breas t 09/12/2015 02/08/2017 Left breast mass 08/30/2015 09/12/2015 documented as of this encounter (statuses as of 07/31/2022) [facility] En[facility] for screening for malignant neoplasm of colon Special screening for malignant neoplasms, colon [facility] Diagnosis Malignant neoplasm of overlapping sites of left breast in female, estrogen receptor positive (HCC)- Primary Liver metastasis (HCC) Secondary malignant neoplasm of liver Bone metastases (HCC) Secondary malignant neoplasm of bone and bone marrow [facility] Diagnosis Malignant neoplasm of overlapping sites of left breast in female, estrogen receptor positive (HCC)- Primary Liver metastasis (HCC) Secondary malignant neoplasm of liver Bone metastases (HCC) Secondary malignant neoplasm of bone and bone marrow [facility] Diagnosis Malignant neoplasm of overlapping sites of left breast in female, estrogen receptor positive (HCC)- Primary Liver metastasis (HCC) Secondary malignant neoplasm of liver Bone metastases (HCC) Secondary malignant neoplasm of bone and bone marrow [facility] Diagnosis Malignant neoplasm of overlapping sites of left breast in female, estrogen receptor positive (HCC) [facility] Diagnosis Malignant neoplasm of overlapping sites of left breast in female, estrogen receptor positive (HCC)- Primary Liver metastasis (HCC) Secondary malignant neoplasm of liver Bone metastases (HCC) Secondary malignant neoplasm of bone and bone marrow [facility] Diagnosis Malignant neoplasm of overlapping sites of left breast in female, estrogen receptor positive (HCC)- Primary Liver metastasis (HCC) Secondary malignant neoplasm of liver Bone metastases (HCC) Secondary malignant neoplasm of bone and bone marrow Breast cancer metastasized to axillary lymph node, left (HCC) documented in this encounter [facility] for referral (narrative)* Outpatient Procedure (Routine) - Closed Specialty Diagnoses / Procedures Referred By Dacia bullard Referred To Contact [facility] DISEASE [facility]ENTRESS Diagnoses Encounter for screening for malignant neoplasm of colon Procedures COLONOSCOPY SCREENING COLONOSCOP W/ OR W/O BRSH Norma Culp PA-C [address] [place] [address] [facility] Disease [address] [id number] Referral ID Status Reason Start Date Expiration Date V isits Requested Visits Authorized [id number] Closed Auto-Generate d Referral 05/08/2021 05/08/2022 1 1 [facility] for visit Narrative* Outpatient Procedure (Routine) - Closed Specialty Diagnoses / Procedures Referred By Dacia bullard Referred To Contact [facility] Diagnoses Encounter for screening for malignant neoplasm of colon Procedures COLONOSCOPY SCREENING COLONOSCOP W/ OR W/O BRSH SPEC Norma Prakash PA-C [address] [place] [address] [facility] [address] [place] [address] Referral ID Status Reason Start Date Expiration Date V isits Requested Visits Authorized [id number] Closed Auto-Generate d Referral 05/08/2021 05/08/2022 1 1 [facility] Summary Purpose Family History No Family History Records FoundNo Family History Records Found Advance Directives Documents on File Type Date Recorded Patient Ironworker Expl anation Advance Directive(s) 08/25/2021 7:08 AM Advance Directive(s) 02/25/2016 10:40 AM Advance Directive(s) 09/17/2015 10:28 AM Documents on File Type Date Recorded Patient Ironworker Expl anation Advance Directive(s) 08/25/2021 7:08 AM Advance Directive(s) 02/25/2016 10:40 AM Advance Directive(s) 09/17/2015 10:28 AM Medications Administered Section Inactive Administered Medications - up to 3 most recent administrations Medication Order MAR Action Action Date Dose Rate Site fentaNYL 50 mcg/mL 25-100 mcg injection (SUBLIMAZE) 25-100 mcg, INTRAVENOUS, DIRECTED, Starting on Wed08/25/21 at 0830, Until Wed08/25/21 at 1229, DOSING DIRECTED BY PHYSICIAN FOR PROCEDURAL SEDATION ONLY, Intraprocedure Given 08/25/2021 8:13 AM EDT 50 mcg Inactive Administered Medications - up to 3 most recent administrations Medication Order MAR Action Action Date Dose Rate Site zoledronic ek-[id number]-[id number] 4 mg iv piggyback 100 mL (ZOMETA) 4 mg, INTRAVENOUS, Administer over 15 Minutes, ONCE, 1 dose, On Wed10/27/21 at 1530, Hazardous Potential Reproductive Risk Drug: Use appropriate PPE. New Bag/Syringe/Bottle 10/27/2021 3:11 PM EDT 4 mg Additional Source Comments INFORMATION SOURCE (unrecogn ized section and content) DATE CREATED AUTHOR AUTHOR'S ORGANIZ ATION 12/18/2021 [facility] Source Comments (unrecognize d section and content) In the event this informatio n is protected by the Federal Confidentiality of Alcohol and Drug Abuse Patient Records regulations: The Federal rules restrict any use of the information to criminally investigate or prosecute any alcohol or drug abuse patient.[facility] the event this information is protected by the Federal Confidentiality of Alcohol and Drug Abuse Patient Records regulations: The Federal rules restrict any use of the information to criminally investigate or prosecute any alcohol or drug abuse patient.[facility] the event this information is protected by the Federal Confidentiality of Alcohol and Drug Abuse Patient Records regulations: The Federal rules restrict any use of the information to criminally investigate or prosecute any alcohol or drug abuse patient.[facility] the event this information is protected by the Federal Confidentiality of Alcohol and Drug Abuse Patient Records regulations: The Federal rules restrict any use of the information to criminally investigate or prosecute any alcohol or drug abuse patient.[facility] the event this information is protected by the Federal Confidentiality of Alcohol and Drug Abuse Patient Records regulations: The Federal rules restrict any use of the information to criminally investigate or prosecute any alcohol or drug abuse patient.[facility] the event this information is protected by the Federal Confidentiality of Alcohol and Drug Abuse Patient Records regulations: The Federal rules restrict any use of the information to criminally investigate or prosecute any alcohol or drug abuse patient.[facility] the event this information is protected by the Federal Confidentiality of Alcohol and Drug Abuse Patient Records regulations: The Federal rules restrict any use of the information to criminally investigate or prosecute any alcohol or drug abuse patient.[facility] the event this information is protected by the Federal Confidentiality of Alcohol and Drug Abuse Patient Records regulations: The Federal rules restrict any use of the information to criminally investigate or prosecute any alcohol or drug abuse patient.[facility] the event this information is protected by the Federal Confidentiality of Alcohol and Drug Abuse Patient Records regulations: The Federal rules restrict any use of the information to criminally investigate or prosecute any alcohol or drug abuse patient.[facility] the event this information is protected by the Federal Confidentiality of Alcohol and Drug Abuse Patient Records regulations: The Federal rules restrict any use of the information to criminally investigate or prosecute any alcohol or drug abuse patient.[facility] Dayton[facility] the event this information is protected by the Federal Confidentiality of Alcohol and Drug Abuse Patient Records regulations: The Federal rules restrict any use of the information to criminally investigate or prosecute any alcohol or drug abuse patient.[facility] the event this information is protected by the Federal Confidentiality of Alcohol and Drug Abuse Patient Records regulations: The Federal rules restrict any use of the information to criminally investigate or prosecute any alcohol or drug abuse patient.[facility] the event this information is protected by the Federal Confidentiality of Alcohol and Drug Abuse Patient Records regulations: The Federal rules restrict any use of the information to criminally investigate or prosecute any alcohol or drug abuse patient.[facility] Care Teams (unrecognized sec tion and content) Tube Mounter Relationship Specialty Start Date End Date Philly Garcia MD PCP - General Internal Medicine 08/30/15 Alvarado Orellana MD, [address] [place] [address] Physician Radiation Oncology 03/05/16 Monica Bolton, RN Specialty Principal Architect 10/25/17 Alvarado Orellana MD, [address] [place] [address] Physician Radiation Oncology 05/23/18 Tube Mounter Relationship Specialty Start Date End Date Philly Garcia MD PCP - General Internal Medicine 08/30/15 Alvarado Orellana MD, [address] [place] [address] Physician Radiation Oncology 03/05/16 Monica Bolton, RN Specialty Principal Architect 10/25/17 Alvarado Orellana MD, [address] [place] [address] Physician Radiation Oncology 05/23/18 Tube Mounter Relationship Specialty Start Date End Date Philly Garcia MD PCP - General Internal Medicine 08/30/15 Alvarado Orellana MD, [address] [place] [address] Physician Radiation Oncology 03/05/16 Monica Bolton RN Specialty Principal Architect 10/25/17 Alvarado Orellana MD, [address] [place] [address] Physician Radiation Oncology 05/23/18 Tube Mounter Relationship Specialty Start Date End Date Philly Garcia MD PCP - General Internal Medicine 08/30/15 Alvarado Orellana MD, [address] [place] [address] Physician Radiation Oncology 03/05/16 Monica Bolton RN Specialty Principal Architect 10/25/17 Alvarado Orellana MD, [address] [place] [address] Physician Radiation Oncology 05/23/18 Tube Mounter Relationship Specialty Start Date End Date Philly Garcia MD PCP - General Internal Medicine 08/30/15 Alvarado Orellana MD, [address] [place] [address] Physician Radiation Oncology 03/05/16 Monica Bolton RN Specialty Principal Architect 10/25/17 Alvarado Orellana MD, [address] [place] [address] Physician Radiation Oncology 05/23/18 Tube Mounter Relationship Specialty Start Date End Date Philly Garcia MD PCP - General Internal Medicine 08/30/15 Alvarado Orellana MD, [address] [place] [address] Physician Radiation Oncology 03/05/16 Monica Bolton, RN Specialty Principal Architect 10/25/17 Alvarado Orellana MD, [address] [place] [address] Physician Radiation Oncology 05/23/18 Tube Mounter Relationship Specialty Start Date End Date Philly Garcia MD PCP - General Internal Medicine 08/30/15 Alvarado Orellana MD, [address] [place] [address] Physician Radiation Oncology 03/05/16 Monica Bolton RN Specialty Principal Architect 10/25/17 Alvarado Orellana MD, [address] [place] [address] Physician Radiation Oncology 05/23/18 Tube Mounter Relationship Specialty Start Date End Date Philly Garcia MD PCP - General Internal Medicine 08/30/15 Alvarado Orellana MD, [address] [place] [address] Physician Radiation Oncology 03/05/16 Monica Bolton RN Specialty Principal Architect 10/25/17 Alvarado Orellana MD, [address] [place] [address] Physician Radiation Oncology 05/23/18 Tube Mounter Relationship Specialty Start Date End Date Philly Garcia MD PCP - General Internal Medicine 08/30/15 Alvarado Orellana MD, [address] [place] [address] Physician Radiation Oncology 03/05/16 Monica Bolton, RN Specialty Principal Architect 10/25/17 Alvarado Orellana MD, [address] [place] [address] Physician Radiation Oncology 05/23/18 Tube Mounter Relationship Specialty Start Date End Date Philly Garcia MD PCP - General Internal Medicine 08/30/15 Alvarado Orellana MD, [address] [place] [id number] [phone] Physician Radiation Oncology 03/05/16 Monica Bolton RN Specialty Principal Architect 10/25/17 Alvarado Orellana MD, [address] [place], [place] [id number] [phone] Physician Radiation Oncology 05/23/18 Reason for Visit (unrecogniz ed section and content) Reason Comments Future Appointment Reason Comments Blood Draw (CVAD) Reason Comments Refill Request Reason Comments Non-Chemotherapy Treatment Specialty Diagnoses / Procedures Referred By Contac t Referred To Contact HEMATOLOGY/ONCOLOGY Diagnoses Breast cancer metastasized to axillary lymph node, left (HCC) Bone metastases (HCC) Procedures INJECTION, ZOLEDRONIC ACID, 1 MG Tommy French DO [address] [place] [address] [facility] [address] [place] [address] Referral ID Status Reason Start Date Expiration Date V isits Requested Visits Authorized [id number] Authorized 05/01/2020 05/16/2022 99 99 Reason Comments Appointment Reason Comments Appointment Cancelled FOR RECORDS PERTAINING TO PATIENTS WHO ARE OR HAVE BEEN ENROLLED IN A CHEMICAL DEPENDENCY/SUBSTANCEABUSE PROGRAM, SOME INFORMATION MAY BE OMITTED. This clinical summary was aggregated from multiple sources. Caution should be exercised in using it in the provision of clinical care. This summary normalizes information from multiple sources, and as a consequence, information in this document may materially change the coding, format and clinical context of patient data. In addition, data may be omitted in some cases. CLINICAL DECISIONS SHOULD BE BASED ON THE PRIMARY CLINICAL RECORDS. [facility] [address] [facility]. provides no warranty or guarantee of the accuracy or completeness of information in this document.
== END | disposition home or self-care (01) ==
LOC: NM 07:37
PROVIDERS: PCP Internal Medicine; Referring Provider Nurse Practitioner Family; Visit Provider Nurse Practitioner Family
DX: C79.51 Secondary malignant neoplasm of bone (principal); C50.812 Malignant neoplasm of overlapping sites of left female breast; Z17.0 Estrogen receptor positive status [ER+]
CPT/HCPCS: 78306; A9503

== ENCOUNTER → 2023-07-08 | Outpatient (CLI) | payer OTHER, SELFPAY ==
--- NOTE | 2023-07-08 16:48 | CT_ITS ---
STUDY: CT CHEST, ABDOMEN T PELVIS WITH CONTRAST REASON FOR EXAM: Female, 53 years old. met breast cancer assess response to treatment RADIATION DOSAGE (If Supplied By Facility): CTDIvol = ( 6.15 ) mGy, DLP = ( 476.89 ) mGycm TECHNIQUE: Transaxial imaging was performed following intravenous administration of IV 100mL Isovue-370. Multiplanar coronal and sagittal images were reformatted. Individualized dose optimization techniques were used for this CT. COMPARISON: 04/07/2023. FINDINGS: CHEST Right-sided chest port in place. Area of groundglass opacity within the right middle lobe which may indicate pneumonitis. Remainder of the lung parenchyma is normal. There is no demonstrated pleural abnormality. Normal heart and pericardium. Normal mediastinum. Normal hilar regions. Normal unenhanced pulmonary arteries. Normal aorta arch and descending thoracic aorta. Unchanged T8 butterfly vertebral body. Degenerative disease of thoracic spine. Unchanged heterogeneous and slightly expansile lesion within the right first rib. Degenerative disease of the left shoulder. Upper abdomen described indeterminant accompanying CT of the abdomen and pelvis report. ABDOMEN Lung bases are clear. The visualized portions of the heart are within normal limits. Low-attenuation lesion within the anterior aspect of the left liver lobe, image 23, series 3 measuring 8.7 mm, likely liver cyst. Small low-attenuation lesion within the anterior aspect of the right liver lobe, measuring 4 mm, too small to accurately characterize. Low-attenuation lesion just below the dome of the diaphragm within the right liver lobe measuring approximately 1.1 x 1.0 cm unchanged in size when measured at the same level. There is a linear tract posteriorly which could represent scarring, exact etiology indeterminate and stable. Remainder of the liver is normal. Normal gallbladder and extrahepatic biliary system. Normal spleen. Normal pancreas. Normal bilateral adrenal glands. Normal right kidney. Multiple low-attenuation structures within the left kidney, largest measuring 1.3 cm stable in the interval. Normal visualized stomach. Normal small intestine. There is fluid within the right and transverse colon with decompression of the descending colon mild thickening of the wall, cannot exclude descending colitis. There is non-visualization of the appendix. Normal abdominal aorta. Normal inferior vena cava. Normal retroperitoneum. Normal abdominal wall. Mild spondylosis with degenerative disease through the lumbar spine, more significant at L3-L4. PELVIS Normal urinary bladder. Normal visualized small intestine. Normal visualized colon. There is no pelvic fluid. There is no pelvic lymphadenopathy or mass lesion. Normal visualized pelvic arteries. Normal abdominal wall. Mild spondylosis with degenerative disease through the lumbar spine, more significant at L3-L4. Mild degenerative disease of bilateral SI joints with mild narrowing of joint spaces at the level of the hips. CT/CT Chest, Abd, Pel w/Contrast IMPRESSION: CT chest: Possible pneumonitis within the right middle lobe, otherwise normal CT chest with no evidence of metastatic disease. CT abdomen/pelvis: Stable liver lesions as described. No new lesions in the interval. Low-attenuation structures within the left kidney, unchanged in the interval with no new cysts or renal lesions seen. No distinct lymphadenopathy or ascites. Possible descending colitis. Electronically Signed: Geetha Hawk MD at 22:06 EST ,
[2023-07-08] MEDS: 0.9% Saline Lock 10 ML Syringe IV (17:00)
== END | disposition home or self-care (01) ==
LOC: CT 16:43
PROVIDERS: PCP Internal Medicine; Referring Provider Nurse Practitioner Family; Visit Provider Nurse Practitioner Family
DX: C50.812 Malignant neoplasm of overlapping sites of left female breast (principal); C79.51 Secondary malignant neoplasm of bone; C78.7 Secondary malignant neoplasm of liver and intrahepatic bile duct; C77.3 Secondary and unspecified 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; Z17.0 Estrogen receptor positive status [ER+]
CPT/HCPCS: 71260; 74177; Q9967; A4216

== ENCOUNTER → 2023-09-21 | Outpatient (CLI) | payer OTHER, SELFPAY ==
--- NOTE | 2023-09-21 15:02 | ECHOLONC_ITS ---
Reason For Study: Chemotherapy Procedure This was a limited 2D transthoracic echocardiogram. Myocardial strain analysis was performed in this exam to aid in the assessment of cardiac function. Exam performed in department. Left Ventricle Normal LV size. Left ventricular systolic function is normal. The left ventricular ejection fraction is 55 %. No regional wall motion abnormalities noted. Right Ventricle Normal RV size. Normal systolic function. Tricuspid Valve Normal tricuspid valve. Mild tricuspid valve insufficiency. Pulmonary artery systolic pressure is 26 mmHg. Pulmonic Valve Normal pulmonic valve. Great Vessels Normal aortic root. The pulmonary artery is normal size. Normal inferior vena cava. Pericardium/Pleural No pericardial effusion. MMode/2D Measurements & Calculations LVIDd: 4.1 cm IVSd: 0.74 cm LVIDs: 2.7 cm LVPWd: 0.73 cm LVAd ap4: 24.2 cm2 RVDd: 3.2 cm FS: 34.5 % LVLd ap4: 7.4 cm EDV(MOD-sp4): 64.5 ml EDV(sp4-el): 67.1 ml LVAs ap4: 15.2 cm2 LVLs ap4: 6.5 cm ESV(MOD-sp4): 30.3 ml ESV(sp4-el): 30.5 ml EF(MOD-sp4): 53.0 % EF(sp4-el): 54.5 % SV(MOD-sp4): 34.2 ml SV(sp4-el): 36.6 ml Doppler Measurements & Calculations TR max jose: 236.2 cm/sec TR max P.3 mmHg ECHO/ONC Echo, Limited Study Interpretation Summary Normal LV size. Left ventricular systolic function is normal. The left ventricular ejection fraction is 55 %. The global longitudinal strain = -20 % (normal). The global longitudinal strain = -20 % (normal). Ordering Physician: Olivia Castillo Referring Physician: Philly Garcia M.D. Performed By: Zacarias Nogueira RCS
== END | disposition home or self-care (01) ==
LOC: CVS 15:01
PROVIDERS: PCP Internal Medicine; Referring Provider Internal Medicine Hematology & Oncology; Visit Provider Internal Medicine Hematology & Oncology
DX: C78.7 Secondary malignant neoplasm of liver and intrahepatic bile duct (principal); C79.51 Secondary malignant neoplasm of bone; C77.3 Secondary and unspecified 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; C64.1 Malignant neoplasm of right kidney, except renal pelvis; C50.812 Malignant neoplasm of overlapping sites of left female breast; Z17.0 Estrogen receptor positive status [ER+]; Z51.81 Encounter for therapeutic drug level monitoring; Z79.899 Other long term (current) drug therapy
CPT/HCPCS: 93308; 93356

== ENCOUNTER → 2023-11-04 | Outpatient (CLI) | payer OTHER, SELFPAY ==
--- NOTE | 2023-11-04 07:41 | CT_ITS ---
STUDY: CT CHEST T ABDOMEN WITH CONTRAST REASON FOR EXAM: Female, 53 years old. BREAST CANCER IV CONTRAST ONLY RADIATION DOSAGE (If Supplied By Facility): CTDIvol = ( 8.1 ) mGy, DLP = ( 442.18 ) mGycm TECHNIQUE: Transaxial imaging was performed following intravenous administration of IV 100mL Isovue-300. Multiplanar coronal and sagittal images were reformatted. Individualized dose optimization techniques were used for this CT. COMPARISON: Comparison is made with prior study dated July 08, 2023. FINDINGS: CHEST A right-sided portacatheter is seen with the tip in the superior vena cava. The lungs are normal. There is no demonstrated pleural abnormality. Normal heart and pericardium. No coronary artery calcification is seen. Normal mediastinum. Normal hilar regions. Normal unenhanced pulmonary arteries. Normal aorta arch and descending thoracic aorta. Stable compression of the T8 vertebrae. ABDOMEN Stable 8.5 mm cyst in the anterior aspect of the left lobe of liver. There is evidence of a 2.9 cm x 2.2 cm area of heterogeneous enhancement in the dome of the liver just inferior to the right hemidiaphragm. This was not well-seen on prior image. Metastatic deposit should be ruled out. Normal gallbladder and extrahepatic biliary system. Normal spleen. Normal pancreas. Normal bilateral adrenal glands. Normal right kidney. Stable small left renal cysts. Normal visualized stomach. Normal small intestine. There is abnormal appearance of the colon with circumferential wall thickening and thickening ostial pattern. Colitis should be ruled out. There is non-visualization of the appendix. Normal abdominal aorta. Normal inferior vena cava. Normal retroperitoneum. Normal abdominal wall. Disc space narrowing at the L3-L4 level. CT/CT Chest AND Abd W/ Contrast IMPRESSION: Abnormal appearance of the dome of the right lobe of the liver. A metastatic deposit should be ruled out. There is circumferential wall thickening of the colon suggestive of colitis. Stable compression of the T8 vertebrae. Electronically Signed: Harry Duffy MD at 13:34 EDT ,
[2023-11-04] MEDS: 0.9 % NaCl (Sterile) Posiflush 10 mL IV (08:00)
[2023-11-04] MEDS: 0.9% Saline Lock 10 ML Syringe IV (08:00)
[2023-11-04 08:05] LABS: CREATININE FINGERSTICK < 1.0 mg/dL (0.55-1.02); EGFR FINGERSTICK > 60.0000 mL/min (>60)
== END | disposition home or self-care (01) ==
PROVIDERS: PCP Internal Medicine; Referring Provider Internal Medicine Hematology & Oncology; Visit Provider Internal Medicine Hematology & Oncology
DX: Z01.812 Encounter for preprocedural laboratory examination (principal); C78.7 Secondary malignant neoplasm of liver and intrahepatic bile duct; C79.51 Secondary malignant neoplasm of bone; C77.3 Secondary and unspecified 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; C64.1 Malignant neoplasm of right kidney, except renal pelvis; C50.912 Malignant neoplasm of unspecified site of left female breast; C50.812 Malignant neoplasm of overlapping sites of left female breast; Z17.0 Estrogen receptor positive status [ER+]
CPT/HCPCS: 71260; 74160; Q9967; A4216

== ENCOUNTER → 2024-04-12 | Outpatient (CLI) | payer OTHER, SELFPAY ==
--- NOTE | 2024-04-12 12:35 | CT_ITS ---
STUDY: CT CHEST, ABDOMEN T PELVIS WITH CONTRAST REASON FOR EXAM: Female, 54 years old. metastatic breast cancer assess response to treatm RADIATION DOSAGE (If Supplied By Facility): CTDIvol = ( 8.02 ) mGy, DLP = ( 547.14 ) mGycm TECHNIQUE: Transaxial imaging was performed following intravenous administration of IV 75mL Isovue-370. The protocol utilizes one or more of the following dose reduction techniques: automated exposure control, adjustment of mA and/or kV according to patient size,and/or use of iterative reconstruction technique. COMPARISON: November 04, 2023 FINDINGS: CHEST The lungs are normal. There is no demonstrated pleural abnormality. Normal heart and pericardium. Normal mediastinum. Normal hilar regions. Normal unenhanced pulmonary arteries. Normal aorta arch and descending thoracic aorta. Stable central compression of T8. Relatively stable cystic changes at the left humeral head. ABDOMEN 1.3 cm left hepatic cyst. There is a relatively stable right hepatic ill-defined heterogeneous 2.7 cm lesion. Normal gallbladder and extrahepatic biliary system. Normal spleen. Normal pancreas. Normal bilateral adrenal glands. Normal right kidney. Cysts in the left kidney. Normal visualized stomach. Normal small intestine. Normal colon. The appendix is visualized and appears normal. Normal abdominal aorta. Normal inferior vena cava. Normal retroperitoneum. Normal abdominal wall. Bony lesion of L2 vertebral body with increasing size and sclerosis. PELVIS Normal urinary bladder. Normal visualized small intestine. Normal visualized colon. There is no pelvic fluid. There is no pelvic lymphadenopathy or mass lesion. Increasing sclerotic lesions of the sacrum and iliac bone at the left sacroiliac joint. CT/CT Chest, Abd, Pel w/Contrast IMPRESSION: Hepatic lesions as described, relatively stable since the previous study. Relatively stable compression of T8. Bony lesion of L2 vertebral body with increase in size and sclerosis. Increasing sclerotic lesions of the sacrum and iliac bone at the left sacroiliac joint. Electronically Signed: Sammy Diaz DO at 9:56 EST ,
[2024-04-12] MEDS: 0.9% Saline Lock 10 ML Syringe IV (13:04)
== END | disposition home or self-care (01) ==
LOC: CT 12:33
PROVIDERS: PCP Internal Medicine; Referring Provider Nurse Practitioner Family; Visit Provider Nurse Practitioner Family
DX: C50.812 Malignant neoplasm of overlapping sites of left female breast (principal); C77.3 Secondary and unspecified 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; C64.1 Malignant neoplasm of right kidney, except renal pelvis; Z17.0 Estrogen receptor positive status [ER+]
CPT/HCPCS: 71260; 74177; Q9967; A4216

== ENCOUNTER → 2024-04-17 | Outpatient (CLI) | payer OTHER, SELFPAY ==
--- NOTE | 2024-04-17 07:52 | NM_ITS ---
CLINICAL: 54-year-old female with history of primary breast carcinoma presenting for reevaluation. WHOLE BODY 99m Tc MDP RADIONUCLIDE BONE SCINTIGRAPHY COMPARISON: Previous whole body bone scintigraphy study report dated 07/05/2023 FINDINGS: Following the intravenous administration of 28.0 mCi of 99m Tc MDP, whole body bone images reveal: 1. Enhanced radiotracer is redefined and increased in spatial distribution in the left proximal humeral metaphysis, the left sacroiliac joint, the first lumbar vertebra, the right first rib and newly apparent in the right posterior inferior acetabulum. Increased uptake is noted in the anterior first and second ribs at the costochondral junction and more readily apparent in the bilateral proximal tibial metaphyses. 2. Facilitated uptake remains apparent in the acromioclavicular compartments of both shoulders, lateral femoral compartment of the right knee. 3. The remaining skeletal structures are scintigraphically unremarkable with normal-appearing renal images and urinary bladder activity identified. NM/Bone Scan Whole Body IMPRESSION: 1. The increase in radiopharmaceutical concentration defined in the left proximal humerus, the left sacroiliac joint, the first lumbar vertebra, the right posterior first rib and newly apparent in the right posterior inferior acetabulum is most consistent with skeletal metastatic disease. 2. Facilitated uptake noted in the first and second ribs anteriorly on the right at the costochondral junction is most consistent with an inflammatory process or trauma-fracture. Accentuated tracer noted in the bilateral proximal tibial metaphyses may be further investigated with plain film radiography secondary to the intensity of uptake. 3. 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 4. Overall compared to the previous bone scintigraphy study dated 07/05/2023, there is persistent demonstration of skeletal metastatic disease. Electronically Signed: Brian Hinkle, at 9:12 EST ,
[2024-04-17] MEDS: 0.9% Saline Lock 10 ML Syringe IV (08:07)
== END | disposition home or self-care (01) ==
LOC: NM 07:52
PROVIDERS: PCP Internal Medicine; Referring Provider Nurse Practitioner Family; Visit Provider Nurse Practitioner Family
DX: C50.812 Malignant neoplasm of overlapping sites of left female breast (principal); C79.51 Secondary malignant neoplasm of bone; C77.3 Secondary and unspecified 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; Z17.0 Estrogen receptor positive status [ER+]
CPT/HCPCS: 78306; A9503; A4216

== ENCOUNTER → 2024-08-07 | Outpatient (CLI) | payer OTHER, SELFPAY ==
--- NOTE | 2024-08-07 12:45 | CT_ITS ---
PROCEDURE: CT CHEST, ABD, PEL W/CONTRAST 08/07/2024 REASON FOR EXAM: 54-year-old female, history of breast cancer, previous bilateral mastectomy, chemo and radiation treatment, currently on oral chemotherapy, imaging follow-up. TECHNIQUE: Chest, abdomen and pelvis CT with intravenous contrast. Coronal and Sagittal reconstruction series were provided. One or more dose reduction techniques were used (e.g., Automated exposure control, adjustment of the mA and/or kV according to patient size, use of iterative reconstruction technique. PATIENT PREPARATION: Per protocol ORAL CONTRAST TYPE: None. CONTRAST: Isovue-300 VOLUME: 100mL RADIATION DOSE SUMMARY: CTDlvol: 20 mGy DLP: 547 mGycm COMPARISON: CT chest, abdomen and pelvis 04/14/2024. FINDINGS: CT CHEST: Hardware: Right chest wall port with tip terminating in the right atrium. Prior bilateral mastectomy and left axillary node dissection with surgical clips along the bilateral chest wall. Lymph nodes: Prior left axillary node dissection. No right axillary, mediastinal or hilar lymphadenopathy. Heart and Vasculature: The heart is normal in size without pericardial effusion. No coronary artery or thoracic aortic calcifications. The great vessels are normal in caliber. Lungs and Airways: The central airways are patent. No suspicious pulmonary mass, pleural effusion or pneumothorax. Bones: Stable cystic change of the left humeral head and within the right posterior 7th rib. Stable central compression fracture deformity of the T8 vertebral body. CT ABDOMEN/PELVIS: Liver: The liver is normal in size with increased size of the heterogeneous hepatic dome mass, now measuring 3.5 x 2.9 cm (series 3, image 11), previously 2.4 x 2.1 cm when measured in a similar fashion. The main portal veins are patent. No biliary ductal dilation. Gallbladder: No radiopaque stones within the gallbladder. Spleen: Unremarkable. Pancreas: Unremarkable. Adrenals: Unremarkable. Kidneys: Bilateral renal cysts. No hydronephrosis or nephrolithiasis. Bladder: Moderately distended and unremarkable. Reproductive Organs: Unremarkable uterus. The ovaries are surgically absent. Bowel: The bowel loops are normal in caliber. No ascites or pneumoperitoneum. No inflammatory mass in the expected region of the appendix. Lymph nodes: No suspicious lymphadenopathy. Vasculature: The abdominal aorta and IVC are normal. Bones: Continued sclerosis of the L2 vertebral body and SI joints, [id number]. Stable scattered pelvic bone islands and cystic change of the left femoral head. CT/CT Chest, Abd, Pel w/Contrast IMPRESSION: CT chest: 1. No evidence of thoracic metastatic disease. 2. Stable T8 vertebral body compression fracture deformity. CT abdomen pelvis: 1. Increased size of the hepatic dome mass, presumably hepatic metastatic disea se. 2. Continued sclerosis of the L2 vertebral body and SI joints, likely secondary to chemotherapy regimen. If concern for osseous metastatic disease, bone scan could be obtained for further evaluation. 3. No additional new or enlarging abdominopelvic metastatic disease. Reading Location: [id number]
[2024-08-07] MEDS: 0.9 % NaCl (Sterile) Posiflush 10 mL IV (13:10)
[2024-08-07] MEDS: 0.9% Saline Lock 10 ML Syringe IV (13:20)
== END | disposition home or self-care (01) ==
LOC: CT 12:43
PROVIDERS: PCP Internal Medicine; Referring Provider Internal Medicine Hematology & Oncology; Visit Provider Internal Medicine Hematology & Oncology
DX: C50.912 Malignant neoplasm of unspecified site of left female breast (principal); C77.3 Secondary and unspecified 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
CPT/HCPCS: 71260; 74177; Q9967; A4216

== ENCOUNTER → 2024-08-10 | Outpatient (CLI) | payer OTHER, SELFPAY ==
--- NOTE | 2024-08-10 08:21 | NM_ITS ---
PROCEDURE: BONE SCAN WHOLE BODY 08/10/2024 REASON FOR EXAM: F/U METS BREAST CANCER Low back pain. Right hip pain. TECHNIQUE: Whole-body bone scan with anterior and posterior views. RADIOPHARMACEUTICAL: 26.2 mCi Technetium-99m Methylene Diphosphonate intravenously. COMPARISON: CORRELATION WITH EXISTING RELEVANT IMAGING STUDIES (i.e. x-ray, MRI, CT, etc.). FINDINGS: Bones: Increased osseous uptake is redemonstrated in the left proximal humerus, left sacroiliac joint and medial left ilium, 1st lumbar vertebra, and right superior acetabulum. Areas of increased osseous uptake are noted in the right 1st through 6th ribs, bilateral acromioclavicular joints, and the C7 vertebra. Kidneys: Normal-appearing uptake in the bilateral kidneys. NM/Bone Scan Whole Body IMPRESSION: Areas of increased osseous uptake are redemonstrated consistent with osseous me tastatic disease. Reading Location: [facility]
== END | disposition home or self-care (01) ==
LOC: NM 08:17
PROVIDERS: PCP Internal Medicine; Referring Provider Internal Medicine Hematology & Oncology; Visit Provider Internal Medicine Hematology & Oncology
DX: C50.912 Malignant neoplasm of unspecified site of left female breast (principal); C77.3 Secondary and unspecified 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
CPT/HCPCS: 78306; A9503

== ENCOUNTER 2024-08-18 17:58 | Emergency (ER) | payer OTHER, SELFPAY ==
[2024-08-18 17:59] VITALS: BP 150/90; PULSE 88; RESP 16; TEMP 36.9; O2SAT 99; BMI 20.7
--- NOTE | 2024-08-18 18:29 | CT_ITS ---
PROCEDURE: CTA CHEST W/WO CONTRAST 08/18/2024 REASON FOR EXAM: LEFT PLEURITIC PAIN, CONCERN FOR PE TECHNIQUE: CTA imaging of the chest, abdomen and pelvis without and with intravenous contrast. Coronal and Sagittal reconstruction series were provided. 3D, 3D post processing, 3D reconstructions, Maximum intensity projection (MIPs) Volume rendering and Shaded surface rendering was provided. CONTRAST: 93 cc Isovue 370 IV One or more dose reduction techniques were used (e.g., Automated exposure control, adjustment of the mA and/or kV according to patient size, use of iterative reconstruction technique). RADIATION DOSE SUMMARY: CTDlvol: 6.59 mGy DLP: 238.55 mGycm COMPARISON: 08/07/2024 FINDINGS: Right port No evidence of filling defect to suggest pulmonary embolism. Thoracic aorta appears within limits. No pericardial or pleural effusion. Bilateral apparent mastectomies with left more than right chest surgical clips. Shotty appearing mediastinal nodes not significantly changed. The central airways appear patent. The lungs appear clear. No pneumothorax. T8 compression deformity again noted. A few rib and T1 vertebral body osseous lesion and small sclerotic focus gladiolus of the sternum again seen. No new pathologic fracture identified. Left shoulder degenerative changes again noted. Please see CT of the abdomen and pelvis for abdominal and lumbar findings. CT/CTA Chest W/WO Contrast IMPRESSION: No evidence of filling defect to suggest pulmonary embolism. Right port, mastectomies and osseous metastatic disease again noted. Reading Location: [id number]
--- NOTE | 2024-08-18 18:29 | CT_ITS ---
PROCEDURE: ABDOMEN/PELVIS W IV CONT ONLY 08/18/2024 REASON FOR EXAM: LUQ ABD PAIN, HX METASTIC CANCER TECHNIQUE: Abdomen and pelvis CT with intravenous contrast. Coronal and Sagittal reconstruction series were provided. PATIENT PREPARATION: Per protocol ORAL CONTRAST TYPE: None. AMOUNT: mL CONTRAST: Omnipaque 350 VOLUME: 100 mL Gauge IV One or more dose reduction techniques were used (e.g., Automated exposure control, adjustment of the mA and/or kV according to patient size, use of iterative reconstruction technique. COMPARISON: CT chest, abdomen and pelvis 04/12/2024 and 08/07/2024 FINDINGS: Lung bases: Unremarkable. Liver: Homogeneous attenuation. Compared with the CT from 2023, there is interval enlargement of a hypoenhancing hepatic dome mass, now 3.4 x 3.7 cm, previously 3.1 x 2.5 cm. Unchanged 13 mm cystic lesion left hepatic lobe subcapsular region. A few scattered subcentimeter low-attenuation lesions are too small to characterize. Gallbladder: No gallstones or wall thickening. Spleen: Normal size. Pancreas: Normal size without evidence of mass surrounding inflammation or ductal dilation. Adrenals: Unremarkable Kidneys: Bilateral simple cysts. No suspicious mass or enhancement. No renal calculi. Slightly more prominent left hydronephrosis. No visualized calculi. Bladder: Urinary bladder is unremarkable. Reproductive Organs: No pelvic mass. Bowel: Stomach is unremarkable. No bowel dilation. Rectosigmoid wall thickening, submucosal hyperemia with surrounding soft tissue stranding, concerning for infectious proctocolitis. Moderate colonic stool. Appendix is not visualized Appendix: The appendix is not identified. There is no inflammatory process identified in the right lower quadrant to suggest appendicitis. Lymph nodes: No suspicious lymph node enlargement. Vasculature: The abdominal aorta and IVC are normal. Peritoneum / Retroperitoneum: No ascites. No pneumoperitoneum. Bones: Diffuse osseous sclerosis, compatible with osseous metastasis. Mild L2 compression deformity. CT/Abdomen/Pelvis W IV Cont ONLY IMPRESSION: 1. Interval enlargement hepatic dome hypoenhancing mass, mild concerning for wo rsening metastasis. 2. Rectosigmoid wall thickening, submucosal hyperemia and soft tissue stranding , concerning for acute infectious proctocolitis. 3. Stable diffuse osseous metastasis Reading Location: [facility]
--- NOTE | 2024-08-18 18:40 | EDS_ITS ---
HPI History of Present Illness Chief Complaint: Abd Pain Informant: patient Narrative Narrative: Patient is a 54-year-old female with history of metastatic breast cancer (to the bone and liver) follows with [place] [facility] with recent PET scan with signs of worsening metastatic disease and her chemo regiment is being changed. She is presenting today with sudden onset left upper quadrant abdominal pain that is pleuritic in nature. She states she has a very sharp pain just below her left ribs that wraps around to her back. She states it is particularly severe if she takes a deep breath. She states that she started today. She is also having worsening of her chronic nausea and is not really had anything to eat today because of her symptoms. Denies any vomiting. She states her bowel movements have been okay. When she tries to take a deep breath she feels short of breath because of the pain but otherwise denies any difficulty breathing. Denies any trauma or injury to the area. Denies any fevers but has had some mild chills. Denies any cough. No other complaints or concerns reported at this time. [facility] Medical History Drug induced neutropenia Drug-induced skin rash Encounter for monitoring cardiotoxic drug therapy CINV (chemotherapy-induced nausea and vomiting) Encounter for education Iron deficiency anemia due to chronic blood loss Anemia Hypokalemia Lung nodule Kidney tumor Home Medications ?Medication ?Instructions ?Recorded ?Last Taken ?Type ondansetron 8 mg disintegrating 8 mg PO Q8H PRN nausea and 06/10/22 Unknown Rx tablet vomiting #30 tabs prochlorperazine maleate 10 mg 10 mg PO Q6H PRN nausea and 01/21/23 Unknown Rx tablet vomiting #30 tabs MAGIC MOUTH WASH (BMX) 180 mL 10 ml PO .4h PRN pain #1 80 mL 01/18/24 Unknown Rx suspension potassium chloride 20 mEq 20 meq PO TID #90 tabs 06/06 Unknown Rx tablet,extended release ibuprofen 600 mg tablet 600 mg PO Q6H PRN PRN pain # 20 08/18/24 Unknown Rx TABLETS promethazine 25 mg rectal 25 mg MS Q6H PRN nausea and 08/18/24 Unknown Rx suppository vomiting #6 ea tramadol 50 mg tablet 50 mg PO Q6H PRN pain #15 ta bs 08/18/24 Unknown Rx Allergy/AdvReac Type Severity Reaction Status Date / Time acetaminophen (From Percocet) Allergy Vomiting Verified 08/18/24 17:58 oxycodone (From Percocet) Allergy Vomiting Verified 08/18/24 17:58 Family History Grandfather Cancer Bone Heart disease Surgical History History of oophorectomy History of hysterectomy S/P mastectomy, bilateral Social History Smoking Status: Never smoker alcohol intake: never ROS ROS ED Constitutional Constitutional ED: Reports chills; Denies fever(s) ENT ENT ED: Denies rhinorrhea or sore throat Cardiovascular Cardiovascular: Reports chest pain; Denies palpitations Respiratory/Chest Respiratory/Chest: Reports dyspnea; Denies cough or sputum Gastrointestinal Gastrointestinal: Reports abdominal pain and nausea; Denies constipation, diarrhea, melena or vomiting Genitourinary Genitourinary ED: Denies dysuria Musculoskeletal Musculoskeletal: Reports back pain; Denies arthralgias Integumentary Denies rash Neurologic Neurologic: Denies paresthesias Psychiatric Psychiatric: Denies anxiety Hematologic/Lymphatic Hematologic/Lymphatic: Denies easy bleeding or easy bruising EXAM Physical Exam Const Vital Signs: 08/18/24 17:59 08/18/24 18:51 08/18/24 21:00 Temperature 98.5 F Temperature Source Oral Pulse Rate 88 77 88 Respiratory Rate 16 12 16 Blood Pressure 150/90 H 154/92 H 125/84 H Blood Pressure Mean 110 112 97 Pulse Ox 99 99 98 Oxygen Delivery Method Room Air Room Air 08/18/24 21:22 Temperature 97.5 F L Temperature Source Pulse Rate 77 Respiratory Rate 16 Blood Pressure 125/84 H Blood Pressure Mean 97 Pulse Ox 98 Oxygen Delivery Method Positive well developed General Appearance ED: well developed and NAD HEENT Reports moist mucous membranes Eyes PERRL General Eye ED: Negative for scleral icterus Neck supple and no JVD Chest Wall inspection of chest normal Chest Narrative: No chest wall crepitus. Tenderness palpation over the inferior right ribs Resp normal respiratory effort Resp Narrative: Diminished breath sounds at the bases. More shallow respirations present. No tachypnea. Auscultation: Negative for rales, rhonchi or wheezes Cardio regular rate, regular rhythm and no murmurs GI normal to inspection, nondistended, normoactive bowel sounds GI Narrative: Minimal tenderness of the left upper quadrant. No guarding, distention or peritoneal signs present Back/Spine no CVA tenderness Extremity normal to inspection General Extremety ED: Negative for edema General Extremity: Negative for edema Neuro oriented x3 Sensorium / Orientation: alert Motor Exam: Negative for general weakness Psych mental status grossly normal Skin no rashes or lesions noted and no wounds Rashes: No rashes noted MDM MDM MDM Narrative Medical decision making narrative: Patient is evaluated for worsening left-sided chest pain. Is pleuritic in nature but is also worse with direct palpation. Seems to be over the left lower thorax. She also has worsening nausea and vomiting. Presentation complicated as she does have metastatic breast cancer to the liver and bones. Differential includes pleurisy, thoracic radiculopathy, prodrome of shingles, pneumothorax, pleural effusion, PE or intra-abdominal processes causing her pain. Patient initially given morphine and Zofran for symptom control. She has improvement of her pain with the morphine but continues to have nausea and vomiting. Is given Reglan. She has temporary improvement but does require redosed with Compazine. Lab work including CBC, CMP, lactate and urinalysis is largely normal. She does have an elevation of her alkaline phosphatase but this is stable and consistent with her history of bony metastasis. She does not have a leukopenia at this time. She is mildly anemic but again this is stable. Platelets are normal. CT imaging shows interval enlargement of pelvic dome concerning for worsening metastasis, chronic T8 compression fracture and rectosigmoid wall thickening, submucosal hyperemia and soft tissue stranding concerning for acute infectious proctocolitis. No report of any acute PE or other acute pathology. On further questioning patient denies any pelvic or lower abdominal pain, change in her bowel movements or stool consistency. Her abdomen is soft and nontender of the lower abdomen. She is not have a leukocytosis. Will not treat for colitis at this time but patient is encouraged to keep a close watch for signs and symptoms of this developing. I do question if she could have referred pain from her T8 compression fracture or some type of thoracic radiculopathy that is causing her pain. She is given dose of Decadron. I did speak with nurse practitioner for oncology, Bess, who recommended admission but states that if patient declines admission will ensure close follow-up on Wednesday for stat outpatient MRI and monitoring of her symptoms. I did speak at length with patient and daughter stating that I would recommend admission for pain control especially as she still having a lot of nausea and vomiting in the emergency room and further monitoring of possible colitis as well as for her pain as well as inpatient MRI. Patient declined stating she would feel much more comfortable at home and would just like to sleep at home. She is amenable to prescription for tramadol. I counseled her on the importance of staying up with pain medication including Lidoderm patches, Tylenol and ibuprofen and use tramadol for breakthrough pain. Will also prescribe her Phenergan suppositories in case she cannot tolerate oral Phenergan at home. Counseled her on the importance of returning to the emergency room should her symptoms worsen that would be happy to see her/treat her again. She verbalized agreement understand this. Discharged home in stable condition. Communicated with oncology that patient would prefer outpatient follow-up as well. Lab Data Attestation: I reviewed the patient's lab results. Labs: Laboratory Results - last 24 hr 08/18/24 08/18/24 08/18/24 18:30 18:31 19:50 WBC 9.2 RBC 4.10 L Hgb 11.2 L Hct 35.6 L MCV 86.8 MCH 27.3 MCHC 31.5 L RDW Std Deviation 41.3 RDW Coeff of Irene 13.1 Plt Count 209 MPV 9.7 Immature Gran % (Auto) 0.200 Neut % (Auto) 76.9 H Lymph % (Auto) 14.1 L Kimble % (Auto) 6.9 Eos % (Auto) 1.4 Baso % (Auto) 0.5 Absolute Neuts (auto) 7.1 Absolute Lymphs (auto) 1.30 Nucleated RBC % 0 Sodium 142 Potassium 3.6 Chloride 106 Carbon Dioxide 20.6 L Anion Gap 15 BUN 10 Creatinine 0.68 L Estim Creat Clear Calc 84.65 Est GFR (MDRD) Non-Af 103 BUN/Creatinine Ratio 15.3 Glucose 87 Lactic Acid < 1.0 Calcium 9.3 Total Bilirubin 0.78 AST 39 H ALT 14 Alkaline Phosphatase 129 H Total Protein 6.8 Albumin 4.4 Globulin 2.5 Albumin/Globulin Ratio 1.8 Urine Color Yellow Urine Clarity Sl. Cloudy Urine pH 7.0 Ur Specific [place] 1.010 Urine Protein 15 H Urine Glucose (UA) Normal Urine Ketones 50 H Urine Occult Blood 25 H Urine Nitrite Negative Urine Bilirubin Negative Urine Urobilinogen Normal Ur Leukocyte Esterase Negative Urine RBC 0-5 SEEN Urine WBC 0 SEEN Ur Squamous Epith Cells 0-5 SEEN Amorphous Sediment 1+ PHOS Urine Bacteria 0 SEEN Urine Mucus 0 SEEN Radiography Diagnostic Testing: Clinical Impression(s) from Imaging Studies Abdomen/Pelvis CT 08/18/24 18:29 IMPRESSION: 1. Interval enlargement hepatic dome hypoenhancing mass, mild concerning for worsening metastasis. 2. Rectosigmoid wall thickening, submucosal hyperemia and soft tissue stranding, concerning for acute infectious proctocolitis. 3. Stable diffuse osseous metastasis Reading [facility] Chest CTA 08/18/24 18:29 IMPRESSION: No evidence of filling defect to suggest pulmonary embolism. Right port, mastectomies and osseous metastatic disease again noted. Reading Location: [id number] Management Discussion w/another healthcare provider: [employer] Discharge Plan Triage Chief Complaint: Abd Pain ED Provider: Sheila Avila Dx/Rx/DC Orders Clinical Impression: Left-sided chest pain, Radiculopathy of thoracic region, Nausea & vomiting, Breast cancer metastasized to bone Instructions: ED Fracture, Vertebral Compression, ED Pleurisy Prescriptions: New promethazine 25 mg suppository 25 mg MS Q6H PRN (Reason: nausea and vomiting) Qty: 6 0RF tramadol 50 mg tablet 50 mg PO Q6H PRN (Reason: pain) Qty: 15 0RF ibuprofen 600 mg tablet 600 mg PO Q6H PRN PRN (Reason: pain) Qty: 20 0RF No Action prochlorperazine maleate 10 mg tablet 10 mg PO Q6H PRN (Reason: nausea and vomiting) Qty: 30 2RF MAGIC MOUTH WASH (BMX) 180 mL suspension 10 ml PO .4h PRN (Reason: pain) Qty: 180 6RF Rx Instructions: diphenhydramine 12.5 mg/5 mL oral liquid 60 mL; aluminum-mag hydroxide- simethicone 400 mg-400 mg-40 mg/5 mL oral susp 60 mL; Lidocaine Viscous 2 % mucosal solution 60 mL; Per 180 mL ondansetron 8 mg tablet,disintegrating 8 mg PO Q8H PRN (Reason: nausea and vomiting) Qty: 30 1RF potassium chloride 20 mEq tablet extended release 20 meq PO TID Qty: 90 6RF Primary Care Provider: Philly Garcia Referrals: Philly Garcia MD [Primary Care Provider] - Neha Luciano HAND LACER, HAND LACER-C [Med Staff - Adv Practice Prof] - Activity Restrictions/Additional Instructions: You have a compression fracture of T8 which is chronic. I question if it is putting pressure all of the nerve to your chest wall which is causing your pain. You do not have any blood clots or other acute abnormalities in the lungs or upper abdomen. Your CT did show some inflammation around your sigmoid colon (which is in your pelvis/lower abdomen). If you develop any stool changes please return to the emergency room or follow-up closely with your oncology team as you might be developing an infection. As we discussed regularly take ibuprofen and Tylenol for pain control. You may use Lidoderm patches as well. You been given a prescription for tramadol for breakthrough pain. You been given a prescription for Phenergan suppositories in case your nausea vomiting send under control with your oral medications. You were offered admission for pain control and further inpatient workup. At this time you would prefer to go home and rest in your own bed however if your symptoms worsen please do not hesitate to return to the emergency room. Please follow-up with your oncologist on Wednesday. Print Language: Irish Disposition Disposition: Home, Self Care Discharge Date/Time: 08/18/24 21:51
[2024-08-18] MEDS: Ondansetron 4 MG/2 ML Vial IV (18:46)
[2024-08-18] MEDS: Morphine 4 MG/ML Syringe IV (18:46)
[2024-08-18] MEDS: 0.9% Normal Saline (1000mL) 1,000 ML 100 ML IV (18:46)
[2024-08-18 18:51] VITALS: BP 154/92; PULSE 77; RESP 12; O2SAT 99
[2024-08-18 18:57] LABS: Absolute Neutrophil Count 7.1 X10^3/uL (2.0-7.7); Basophil# 0.05 X10^3/uL; Basophil% 0.5 % (0-1); Eosinophil# 0.13 X10^3/uL; Eosinophils% 1.4 % (0-5); Hematocrit 35.6 % (37-47); Hemoglobin 11.2 g/dL (12.0-15.0); Lymphocyte % 14.1 % (19-41); Mean Corp Hgb Conc 31.5 g/dL (32-36); Mean Corpuscular Hgb 27.3 pg (27.0-32.0); Mean Corpuscular Volume 86.8 fL (81-99); Mean Platelet Vol. 9.7 fl (6.2-12.0); Monocyte# 0.64 X10^3/uL; Monocyte% 6.9 % (0-10); NRBC Flagged by Analyzer 0 % (0-5); Neutrophil # 7.09 X10^3/uL (2.7-7.7); Neutrophil % 76.9 % (47-70); Platelet Count 209 K/mm3 (150-450); RBC Distribution Width CV 13.1 % (11.6-14.6); RBC Distribution Width SD 41.3 fl (35.1-43.9); White Blood Count 9.2 K/mm3 (4.4-11.0)
[2024-08-18 19:24] LABS: ALB/GLOB Ratio 1.8 RATIO (0.9-2.4); AST(SGOT) 39 U/L (<=31); Alanine Aminotransfer ALT/SGPT 14 U/L (<=34); Albumin, Serum 4.4 g/dL (3.5-5.0); Alkaline Phosphatase 129 U/L (35-104); Anion Gap 15 (5-15); BUN 10 mg/dL (4-19); BUN/Creat Ratio 15.3 RATIO (10-20); Calcium,Total 9.3 mg/dL (7.6-11.0); Carbon Dioxide 20.6 mmol/L (21.0-32.0); Chloride 106 mmol/L (98-108); Creatinine, Serum 0.68 mg/dL (0.70-1.20); EST Glomerular Filtration Rate 103 (>60); Estimated Creatinine Clearance 84.65 ml/min (50-250); Globulin 2.5 g/dL (2.2-4.2); Glucose 87 mg/dL (70-99); Potassium 3.6 mmol/L (3.3-5.1); Protein, Total 6.8 g/dL (5.9-8.4); Sodium Level 142 mmol/L (133-145); Total Bilirubin 0.78 mg/dL (0.00-1.30)
[2024-08-18 19:25] LABS: Lactic Acid < 1.0 mmol/L (0.0-2.0)
[2024-08-18] MEDS: Metoclopramide 10 MG/2 ML Vial 5 MG IV (19:48)
[2024-08-18 19:54] LABS: Bacteria 0 SEEN /hpf (None Seen); Mucous, Urine 0 SEEN /hpf (<or=2+); White Blood Cells 0 SEEN /hpf (0-5)
[2024-08-18 20:00] LABS: Color, Urine Yellow (Yellow); Glucose, Dipstick Normal (Normal); Ketone-Dipstick 50 mg/dl (Negative); Leukocyte Esterase-Dipstick Negative /ul (Negative); Nitrite-Dipstick Negative (Negative); Occult Blood-Urine 25 /ul (Negative); Protein-Dipstick 15 mg/dl (Negative); Urine Bilirubin Dipstick Negative (Negative); Urine Clarity Sl. Cloudy (Clear); Urine Urobilinogen Normal (Normal)
[2024-08-18 20:13] LABS: Amorphous Sediment 1+ PHOS; Red Blood Cells-Urine 0-5 SEEN /hpf (0-5); Squamous Epithelial Cells - UA 0-5 SEEN /hpf (5-10)
[2024-08-18] MEDS: proCHLORPERazine 10 MG/2 ML Vial 5 MG IV (20:27)
[2024-08-18] MEDS: Ketorolac 15 MG/ML Vial IV (20:29)
[2024-08-18 21:00] VITALS: BP 125/84; PULSE 88; RESP 16; O2SAT 98
[2024-08-18] MEDS: Lidocaine 5% Patch 1 PATCH TOPICAL (21:14)
[2024-08-18 21:22] VITALS: BP 125/84; PULSE 77; RESP 16; TEMP 36.4; O2SAT 98
== END 2024-08-18 21:51 | disposition home or self-care (01) ==
PROVIDERS: Emergency Provider Emergency Medicine; PCP Internal Medicine; Visit Provider Emergency Medicine
DX: R07.9 Chest pain, unspecified (principal); C78.7 Secondary malignant neoplasm of liver and intrahepatic bile duct; C79.51 Secondary malignant neoplasm of bone; C50.919 Malignant neoplasm of unspecified site of unspecified female breast; M54.14 Radiculopathy, thoracic region; R11.2 Nausea with vomiting, unspecified
CPT/HCPCS: 36591; 71275; 74177; 80053; 81001; 83605; 85025; 96361; 96374; 96375; 99283; Q9967; A4216; J2405

== ENCOUNTER → 2024-08-28 | Outpatient (CLI) | payer OTHER, SELFPAY ==
--- NOTE | 2024-08-28 12:36 | MRI_ITS ---
PROCEDURE: SPINE THORACIC W/WO CONTRAST 08/28/2024 REASON FOR EXAM: LEFT MID BACK PAIN, BREAST CANCER MET TO BONE. TECHNIQUE: Thoracic spine MRI without and with intravenous gadolinium-based contrast. Coronal and Sagittal reconstruction series were provided. CONTRAST: Clariscan VOLUME: 12mL Gauge IV COMPARISON: 07/2024 CT chest/abdomen/pelvis; 04/17/2024 and 08/10/2024 nuclear medicine bone scan FINDINGS: Vertebrae: T1, T3, and T12 vertebral body STIR hyperintense and T1 hypointense lesions. A few tiny lesions are scattered in the vertebral bodies. T8 vertebral body fracture. Partially visualized L2 abnormal signal. Alignment: Normal. No spondylolisthesis. Spinal Cord: Thoracic spinal cord is of normal size and signal intensities. No thoracic spinal cord lesions are identified. Multilevel perineural cysts. Disc spaces: Mild multilevel thoracic degenerative changes without central canal stenosis. Paraspinal Tissues: Mild paraspinous muscle fatty infiltration. Postcontrast images: Enhancement of the vertebral body lesions.. MRI/Spine Thoracic W/WO Contrast IMPRESSION: Dominant enhancing lesions, likely metastases, at T1, T3, and T12 vertebral bod ies. Smaller lesions are noted in the T4 and L1 vertebral bodies. T8 vertebral body fracture redemonstrated. Reading Location: [facility]
== END | disposition home or self-care (01) ==
LOC: MRI 12:26
PROVIDERS: PCP Internal Medicine; Referring Provider Nurse Practitioner Family; Visit Provider Nurse Practitioner Family
DX: C50.919 Malignant neoplasm of unspecified site of unspecified female breast (principal); C79.51 Secondary malignant neoplasm of bone; M54.14 Radiculopathy, thoracic region
CPT/HCPCS: 72157; A9575

== ENCOUNTER → 2024-11-20 | Outpatient (CLI) | payer OTHER, SELFPAY ==
[2024-11-20] MEDS: 0.9% Saline Lock 10 ML Syringe IV (08:05)
== END | disposition home or self-care (01) ==
LOC: CT 07:58
PROVIDERS: PCP Internal Medicine; Referring Provider Internal Medicine Hematology & Oncology; Visit Provider Internal Medicine Hematology & Oncology
DX: C50.812 Malignant neoplasm of overlapping sites of left female breast (principal); C78.7 Secondary malignant neoplasm of liver and intrahepatic bile duct; C79.51 Secondary malignant neoplasm of bone; C77.3 Secondary and unspecified 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; C64.1 Malignant neoplasm of right kidney, except renal pelvis; Z17.0 Estrogen receptor positive status [ER+]
CPT/HCPCS: 71260; 74177; Q9967; A4216

== ENCOUNTER → 2024-11-24 | Outpatient (CLI) | payer OTHER, SELFPAY ==
--- NOTE | 2024-11-24 07:37 | NM_ITS ---
PROCEDURE: BONE SCAN WHOLE BODY 11/24/2024 REASON FOR EXAM: F/U left BREAST CANCER TECHNIQUE: Delayed whole-body bone scan performed following radiopharmaceutical administration. RADIOPHARMACEUTICAL: 26.8 mCi Technetium-99m MDP IV. COMPARISON: Whole-body bone scan of 04/17/2024. FINDINGS: Progressive worsening of osseous metastatic disease in the right 3rd, 4th, 5th, and 6th ribs. Progressive worsening of osseous metastatic disease in the left iliac bone and left acetabular region. Worsening osseous metastatic disease in the L2, T12, T10, and probably additional vertebral bodies. Probable newly visualized osseous metastatic disease of the right L4 or L5 level. Question of osseous metastatic disease in sternum. Persistent increased uptake in the left humeral head, similar to the prior study, concerning for osseous metastatic disease. Persistent increased uptake in the right 1st rib, similar to the prior study, concerning for osseous metastatic disease. NM/Bone Scan Whole Body IMPRESSION: Overall worsening of osseous metastatic disease, as noted. Reading Location: [address]
== END | disposition home or self-care (01) ==
LOC: NM 07:36
PROVIDERS: PCP Internal Medicine; Referring Provider Internal Medicine Hematology & Oncology; Visit Provider Internal Medicine Hematology & Oncology
DX: C50.812 Malignant neoplasm of overlapping sites of left female breast (principal); C78.7 Secondary malignant neoplasm of liver and intrahepatic bile duct; C79.51 Secondary malignant neoplasm of bone; C77.3 Secondary and unspecified 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; C64.1 Malignant neoplasm of right kidney, except renal pelvis; Z17.0 Estrogen receptor positive status [ER+]
CPT/HCPCS: 78306; A9503

== ENCOUNTER → 2025-04-11 | Outpatient (CLI) | payer OTHER, SELFPAY ==
--- NOTE | 2025-04-11 07:56 | NM_ITS ---
PROCEDURE: BONE SCAN WHOLE BODY 04/11/2025 REASON FOR EXAM: F/U METS BREAST CANCER TECHNIQUE: Procedure Code: NMBO Modality: NM Procedure: BONE SCAN WHOLE BODY Whole-body bone scan with anterior and posterior views. Imaging at 3.5 hours. RADIOPHARMACEUTICAL: 25.4 mCi Technetium-99m MDP IV COMPARISON: Whole-body bone scan, 11/24/2024 FINDINGS: There is diffuse mottled activity throughout the spine and multiple ribs, consistent with treated metastatic disease. The foci of markedly increased activity on the prior exam have shown decrease, particularly the lower thoracic and upper lumbar vertebral levels and sacral ala, the right iliac wing, the left acetabulum, the left ischium and a right lower rib. However, there is a new area of increased activity in the left iliac wing. NM/Bone Scan Whole Body IMPRESSION: 1. There has been interval decrease in activity of multiple skeletal metastase s consistent with interval therapy. 2. There is diffusely increased activity which may in part be due to chemother apy, however, there is a focus of interval increased activity in the left iliac wing. Reading Location: [id number]
== END | disposition home or self-care (01) ==
LOC: NM 07:56
PROVIDERS: PCP Internal Medicine; Referring Provider Internal Medicine Hematology & Oncology; Visit Provider Internal Medicine Hematology & Oncology
DX: C50.812 Malignant neoplasm of overlapping sites of left female breast (principal); C78.7 Secondary malignant neoplasm of liver and intrahepatic bile duct; C79.51 Secondary malignant neoplasm of bone; C77.3 Secondary and unspecified 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; C64.1 Malignant neoplasm of right kidney, except renal pelvis; Z17.0 Estrogen receptor positive status [ER+]
CPT/HCPCS: 78306; A9503

== ENCOUNTER → 2025-04-16 | Outpatient (CLI) | payer OTHER, SELFPAY ==
--- NOTE | 2025-04-16 07:35 | CT_ITS ---
PROCEDURE: CT CHEST, ABD, PEL W/CONTRAST 04/16/2025 REASON FOR EXAM: F/U METS BREAST CANCER IV CONTRAST ONLY TECHNIQUE: Chest, abdomen and pelvis CT with intravenous contrast. Coronal and Sagittal reconstruction series were provided. One or more dose reduction techniques were used (e.g., Automated exposure control, adjustment of the mA and/or kV according to patient size, use of iterative reconstruction technique. PATIENT PREPARATION: Per protocol CONTRAST: Isovue-300 VOLUME: 95mL RADIATION DOSE SUMMARY: CTDlvol: 23 mGy DLP: 523 mGycm COMPARISON: August 18, 2024 FINDINGS: CT CHEST: Hardware: Right Port-A-Cath is in place. Lymph nodes: None appear enlarged Heart and Vasculature: Heart is normal size. No pericardial effusion. Quality of the contrast bolus is sufficient to exclude acute or chronic pulmonary embolus. Lungs and Airways: No new mass, nodule or consolidation. Linear scarring right lung base. Minimal, smooth interlobular septal thickening right lung base. Pleura: No pleural effusion or pneumothorax Mastectomy has been performed bilaterally. CT ABDOMEN/PELVIS: Liver: The geographic mass in the anterior segment right hepatic lobe near the dome is irregular and morphology with the bulk of the lesion measuring 3.7 x 2.2 cm, while on prior 4.4 x 2.7 cm. Several scattered hypodense foci measuring less than 1 cm are shown in both the left and right lobes of the liver. The total number of lesions in the posterior segment right lobe has increased. Most of the lesions in the anterior segment and left lobe are relatively stable. A benign cyst in the subcapsular left lobe, segment 2 is benign. Gallbladder: Contracted. No biliary ductal dilation. Spleen: Normal Pancreas: Normal Adrenals: Normal Kidneys: 11 mm simple cyst posterior left midpole is benign. Smaller subcentimeter cysts of the medial left lower pole is statistically benign. No change. No collecting system dilation, calculus or definite solid mass seen. Bladder: Normal Reproductive Organs: Uterus is anteverted. No adnexal mass. Bowel: Stomach appears normal. Small bowel is normal. Most of the colon is evacuated. Small amount of formed stool is present. Qualitative thickening, mild hyperenhancement of the colon is likely a combination of underdistention and mild background colitis. Appendix: The appendix is not identified. There is no inflammatory process identified in the right lower quadrant to suggest appendicitis. Lymph nodes: None appear enlarged. Vasculature: Mild atherosclerosis without aneurysm Peritoneum / Retroperitoneum: No free air, free fluid or mass Bones: Mixed lytic and sclerotic bone lesions are shown throughout the axial skeleton. This has progressed. Pathologic fracture with mild depression of the superior endplate of T1 is unchanged. The lytic component of the left pedicle of T8 has worsened and is at risk for pathologic fracture. The mixed lytic sclerotic lesion involving T12 shows early compression of the superior and inferior endplates. The biconcave compression of L2 is similar to prior. The lytic component involving the left pedicle of L5 is unchanged and poses a fracture risk. Extensive metastatic disease is shown throughout the entire imaged skeleton including the ribs, bones of the pelvis and hips. This has progressed. Lucency below the trochanters on the left has increased opposing fracture risk. CT/CT Chest, Abd, Pel w/Contrast IMPRESSION: 1. Chest: No new evidence of malignancy in the lungs. No lymphadenopathy. 2. Abdomen: Primary lesion in the liver near the dome is decreased in size. H owever, the total number of lesions has increased particularly in the right lobe liver. 3. Mild hyperenhancement and qualitative thickening of the colon. Consider a mild colitis. No bowel obstruction. 4. Pelvis: No new evidence of malignancy. 5. Musculoskeletal. Extensive mixed lytic and sclerotic lesions throughout th e entire imaged skeleton. This has worsened. Pathologic fractures are seen involving the superior endplate of T1, T12, L2. Worsening metastatic disease at T8 and L5 left pedicles worrisome for pathologic fracture risk. Reading Location: [id number]
--- OUTSIDE RECORDS SUMMARY | 2025-04-16 07:38 | XMS RPT_ITS | CCD ---
Author Organization [facility] Care Team Providers Care Gang Ripsaw Operator Name Role Phone Philly Garcia Unavailable Yves Glez Unavailable MALENA Mcneill Unavailable Unavailable Unavailable Unavailable Philly Garcia MD Primary Care Provider Esteban SARMIENTO MD, Dageorgeung Unavailable Hoang RN, Monica Unavailable Unavailable Esteban SARMIENTO MD, Daesung Unavailable Dr. Philly Garcia Primary Care Provider Dr. Philly Garcia Referring Provider 1([facility])[phone] Olivia Castillo Attending Provider Dr. Philly Garcia Primary Care Provider 1([facility])[phone] Dr. Philly Garcia Referring Provider 1([facility])[phone] Olivia Castillo Attending Provider Ankita COORDINATE MEASURING EQUIPMENT OPERATOR, DRAGAN-Olive Solomon Attending Provider Dr. Philly Garcia Primary Care Provider Dr. Philly Garcia Referring Provider 1([facility])[phone] Olivia Castillo Attending Provider Dr. Jose Luis Hidalgo Attending Provider Philly Garcia MD Primary Care Provider Esteban SARMIENTO MD, Sorayaung Unavailable Hoang RN, Monica Unavailable Unavailable Esteban SARMIENTO MD, Daesung Unavailable Dr. Philly Garcia Primary Care Provider Dr. Philly Garcia Referring Provider Dr. Olivia Castillo Attending Provider Dr. Jose Luis Hidalgo Attending Provider Ankita COORDINATE MEASURING EQUIPMENT OPERATOR, COORDINATE MEASURING EQUIPMENT OPERATOR-C Neha Attending Provider Dr. Philly Garcia Primary Care Provider Dr. Jose Luis Hidalgo Attending Provider Dr. Philly Garcia Referring Provider Dr. Olivia Castillo Attending Provider Ankita COORDINATE MEASURING EQUIPMENT OPERATOR, COORDINATE MEASURING EQUIPMENT OPERATOR-C Neha Attending Provider Dr. Philly Garcia Primary Care Provider Dr. Philly Garcia Referring Provider Dr. Olivia Castillo Attending Provider Ankita COORDINATE MEASURING EQUIPMENT OPERATOR, COORDINATE MEASURING EQUIPMENT OPERATOR-C Neha Attending Provider Dr. Jose Luis Hidalgo Attending Provider Dr. Philly Garcia Primary Care Provider Dr. Philly Garcia Referring Provider Dr. Olivia Castillo Attending Provider Ankita COORDINATE MEASURING EQUIPMENT OPERATOR, COORDINATE MEASURING EQUIPMENT OPERATOR-C Neha Attending Provider Dr. Philly Garcia MD Primary Care Provider Ankita COORDINATE MEASURING EQUIPMENT OPERATOR-C, Neha Attending Provider Ankita COORDINATE MEASURING EQUIPMENT OPERATOR-C, Neha Referring Provider Jose SARMIENTO, Dr. Fraga Referring Provider Jonathan SARMIENTO, Dr. Baker Attending Provider Jonathan SARMIENTO, Dr. Baker Referring Provider Jose SARMIENTO, Dr. Fraga Primary Care Provider Ankita COORDINATE MEASURING EQUIPMENT OPERATOR-C, Neha Attending Provider Dr. Sheila Avila DO Emergency Provider Jose SARMIENTO, Dr. Fraga Primary Care Provider Jose SARMIENTO, Dr. Fraga Referring Provider Jonathan SARMIENTO, Dr. Baker Attending Provider Dr. Sheila Avila DO Attending Provider Ankita COORDINATE MEASURING EQUIPMENT OPERATOR-C, Neha Referring Provider Jose SARMIENTO, Dr. Fraga Primary Care Provider Jose SARMIENTO, Dr. Fraga Referring Provider Jonathan SARMIENTO, Dr. Baker Attending Provider Jonahtan SARMIENTO, Dr. Baker Referring Provider Jose SARMIENTO, Dr. Fraga Primary Care Provider Jose SARMIENTO, Dr. Fraga Referring Provider Jonathan SARMIENTO, Dr. Baker Attending Provider Jose SARMIENTO, Dr. Fraga Primary Care Provider Jonathan SARMIENTO, Dr. Baker Attending Provider Jose SARMIENTO, Dr. Fraga Referring Provider Jose SARMIENTO, Dr. Fraga Primary Care Provider Ankita COORDINATE MEASURING EQUIPMENT OPERATOR-C, Neha Attending Provider Jose SARMIENTO, Dr. Fraga Referring Provider Jonathan SARMIENTO, Dr. Baker Attending Provider Jonathan SARMIENTO, Dr. Baker Referring Provider Jose SARMIENTO, Dr. Fraga Primary Care Provider Jose SARMIENTO, Dr. Fraga Referring Provider Ankita COORDINATE MEASURING EQUIPMENT OPERATOR-C, Neha Attending Provider Jonathan SARMIENTO, Dr. Baker Attending Provider Jose SARMIENTO, Dr. Fraga Primary Care Physician Jose SARMIENTO, Dr. Fraga Referring Provider Ankita COORDINATE MEASURING EQUIPMENT OPERATOR-C, Neha Attending Physician Jonathan SARMIENTO, Dr. Baker Attending Physician Jose SARMIENTO, Dr. Fraga Primary Care Physician Jose SARMIENTO, Dr. Fraga Referring Provider Ankita COORDINATE MEASURING EQUIPMENT OPERATOR-C, Neha Attending Physician Bonezzi, Philly Referring Unavailable Isckarus, Mansour Attending Unavailable Bonezzi, Philly Primary Care Unavailable Bonezzi, Philly Referring Unavailable Isckarus, Mansour Attending Unavailable Bonezzi, Philly Primary Care Unavailable Bonezzi, Philly Referring Unavailable Isckarus, Mansour Attending Unavailable Bonezzi, Philly Primary Care Unavailable Isckarus, Mansour Attending Unavailable Bonezzi, Philly Referring Unavailable Bonezzi, Philly Primary Care Unavailable Ankita COORDINATE MEASURING EQUIPMENT OPERATOR, Neha Attending Unavailable Bonezzi, Philly Referring Unavailable Bonezzi, Philly Primary Care Unavailable Isckarus, Mansour Referring Unavailable Isckarus, Mansour Attending Unavailable Bonezzi, Philly Primary Care Unavailable Ankita COORDINATE MEASURING EQUIPMENT OPERATOR, Neha Attending Unavailable Bonezzi, Philly Primary Care Unavailable Ankita COORDINATE MEASURING EQUIPMENT OPERATOR, Neha Referring Unavailable Bonezzi, Philly Primary Care Unavailable Isckarus, Mansour Attending Unavailable Isckarus, Mansour Referring Unavailable Bonezzi, Philly Primary Care Unavailable Isckarus, Mansour Attending Unavailable Isckarus, Mansour Referring Unavailable Isckarus, Mansour Referring Unavailable Bonezzi, Philly Primary Care Unavailable Isckarus, Mansour Attending Unavailable Bonezzi, Philly Referring Unavailable Bonezzi, Philly Primary Care Unavailable Isckarus, Mansour Attending Unavailable Bonezzi, Philly Referring Unavailable Bonezzi, Philly Primary Care Unavailable Ankita COORDINATE MEASURING EQUIPMENT OPERATOR, Neha Attending Unavailable Isckarus, Mansour Referring Unavailable Bonezzi, Philly Primary Care Unavailable Isckarus, Mansour Attending Unavailable Bonezzi, Philly Referring Unavailable Isckarus, Mansour Attending Unavailable Bonezzi, Philly Primary Care Unavailable Ankita COORDINATE MEASURING EQUIPMENT OPERATOR, Neha Attending Unavailable Bonezzi, Philly Primary Care Unavailable Ankita COORDINATE MEASURING EQUIPMENT OPERATOR, Neha Referring Unavailable Ankita COORDINATE MEASURING EQUIPMENT OPERATOR, Neha Attending Unavailable Bonezzi, Philly Primary Care Unavailable Ankita COORDINATE MEASURING EQUIPMENT OPERATOR, Neha Referring Unavailable Bonezzi, Philly Primary Care Unavailable Sheila Avila Attending Unavailable Bonezzi, Philly Referring Unavailable Isckarus, Mansour Attending Unavailable Bonezzi, Philly Primary Care Unavailable Bonezzi, Philly Referring Unavailable Bonezzi, Philly Primary Care Unavailable Ankita COORDINATE MEASURING EQUIPMENT OPERATOR, Neha Attending Unavailable Bonezzi, Philly Referring Unavailable Bonezzi, Philly Primary Care Unavailable Ankita COORDINATE MEASURING EQUIPMENT OPERATOR, Neha Attending Unavailable Ankita COORDINATE MEASURING EQUIPMENT OPERATOR, Neha Attending Unavailable Bonezzi, Philly Referring Unavailable Bonezzi, Philly Primary Care Unavailable Bonezzi, Philly Referring Unavailable Bonezzi, Philly Primary Care Unavailable Isckarus, Mansour Attending Unavailable Bonezzi, Philly Referring Unavailable Isckarus, Mansour Attending Unavailable Bonezzi, Philly Primary Care Unavailable Ankita COORDINATE MEASURING EQUIPMENT OPERATOR, Neha Attending Unavailable Bonezzi, Philly Referring Unavailable Bonezzi, Philly Primary Care Unavailable Ankita COORDINATE MEASURING EQUIPMENT OPERATOR, Neha Attending Unavailable Bonezzi, Philly Referring Unavailable Bonezzi, Philly Primary Care Unavailable Bonezzi, Philly Referring Unavailable Bonezzi, Philly Primary Care Unavailable Ankita COORDINATE MEASURING EQUIPMENT OPERATOR, Neha Attending Unavailable Isckarus, Mansour Attending Unavailable Bonezzi, Philly Referring Unavailable Bonezzi, Philly Primary Care Unavailable Bonezzi, Philly Referring Unavailable Isckarus, Mansour Attending Unavailable Bonezzi, Philly Primary Care Unavailable Bonezzi, Philly Referring Unavailable Isckarus, Mansour Attending Unavailable Bonezzi, Philly Primary Care Unavailable Allergies Allergy Classification Reported Allergen(s) Allergy Type Date of Onset Reaction(s) Facility (14 sources) Acetaminophen / oxyCODONE; Translations: [Percocet *ANALGESICS - OPIOID*] Drug Allergy 6 Vomiting [facility] Work Phone: Comment on above: nausea (14 sources) Acetaminophen Drug Allergy 2 Vomiting [facility] (20 sources) oxyCODONE Drug Allergy 2 Vomiting [facility] (1 source) Acetaminophen Drug Allergy 5 [facility] Repository (1 source) oxyCODONE Drug Allergy 5 [facility] Rep[facility] Medications Current Medications Medication Drug Class(es) Dates Sig (Normalized) Sig (Original) dexamethasone 4 mg oral tablet (5 sources) Corticosteroid Start: 11-27-2024 Dexamethasone 4 mg tablet Active 8 mg PO TWICE A DAY 60 3 3 November 27, 2024 12:00am Take 8 mg p.o. twice daily for 3 days starting 1 day prior to his scheduled chemotherapy (cycle repeats every 3 weeks) Complies with drug therapy ibuprofen 600 mg oral tablet (14 sources) Nonsteroidal Anti-inflammatory Drug Start: 08-18-2024 take 1 tablet by mouth every six hours as needed for pain Ibuprofen 600 mg tablet Active 600 mg PO EVERY 6 HOURS NEEDED as needed for pain 20 August 18, 2024 12:00am Complies with drug therapy Magic Mouth Wash (Bmx) 180 mL suspension (16 sources) Start: 01-18-2024 Magic Mouth Wash (Bmx) 180 mL suspension Active 10 mL PO .4h as needed for pain 180 January 18, 2024 12:00am diphenhydramine 12.5 mg/5 mL oral liquid 60 mL; aluminum-mag hydroxide-simethicon e 400 mg-400 mg-40 mg/5 mL oral susp 60 mL; Lidocaine Viscous 2 % mucosal solution 60 mL; Per 180 mL Complies with drug therapy Start: 01-18-2024 Magic Mouth Wa sh (Bmx) 180 mL suspension Active 10 mL PO .4h as needed for pain 180 January 18, 2024 12:00am diphenhydramine 12.5 mg/5 mL oral liquid 60 mL; aluminum-mag hydroxide-simethicone 400 mg-400 mg-40 mg/5 mL oral susp 60 mL; Lidocaine Viscous 2 % mucosal solution 60 mL; Per 180 mL Start: 01-18-2024 Magic Mouth Wa sh (Bmx) 180 mL suspension Active 10 mL PO .4h as needed for pain 180 January 18, 2024 12:00am diphenhydramine 12.5 mg/5 mL oral liquid 60 mL; aluminum-mag hydroxide-simethicone 400 mg-400 mg-40 mg/5 mL oral susp 60 mL; Lidocaine Viscous 2 % mucosal solution 60 mL; Per 180 mL ondansetron 8 mg disintegrating oral tablet (20 sources) Serotonin-3 Receptor Antagonist Start: 06-10-2022 End: 06-10-2022 take 1 tablet by mouth every eight hours as needed for nausea and vomiting Ondansetron 8 mg tablet,disintegrating Active 8 mg PO Q8H as needed for nausea and vomiting 30 June 10, 2022 10:09am Malignant neoplasm of overlapping sites of left female breast Estrogen receptor positive status [ER+] Complies with drug therapy potassium chloride 20 meq extended release oral tablet (20 sources) Start: 03-04-2023 End: 02-06-2025 take 1 tablet by mouth three times daily Start: 02-01-2023 End: 03-04-2023 take 1 tablet by mouth twice daily Potassium Chloride 20 mEq tablet extended release Discontinued 20 meq PO TWICE A DAY 10 February 11, 2023 12:00am March 04, 2023 2:44pm Start: 10-14-2022 End: 03-04-2023 take 20 mEq by mouth twice daily Potassium Chloride 20 mEq packet Discontinued 20 meq PO TWICE A DAY 60 February 01, 2023 8:32am March 04, 2023 2:42pm Start: 11-07-2021 End: 10-14-2022 take 20 mEq by mouth once daily Potassium Chloride 20 mEq packet Discontinued 20 meq PO DAILY November 07, 2021 12:00am October 14, 2022 2:42pm Start: 04-15-2021 End: 11-10-2021 KLOR-CON M20 20 mEq tablet T BONNY 1 TABLET TWICE A DAY 180 tablet 2 11/10/2021 Active Comment on above: Take 1 tablet by amanda th twice daily. TAKE 1 TABLET TWICE A DAY prochlorperazine 10 mg oral tablet (20 sources) Phenothiazine Start: 2022 take 1 tablet by mouth every six hours as needed for nausea and vomiting Prochlorperazine Maleate 10 mg tablet Active 10 mg PO EVERY 6 HOURS as needed for nausea and vomiting 30 January 21, 2023 12:00am Chemotherapy-induced nausea and vomiting Nausea with vomiting, unspecified Adverse effect of antineoplastic and immunosuppressive drugs, initial encounter Complies with drug therapy promethazine hydrochloride 25 mg rectal suppository (14 sources) Phenothiazine Start: 2024 Promethazine 25 mg suppository Active 25 mg RC EVERY 6 HOURS as needed for nausea and vomiting 6 0 August 18, 2024 12:00am Complies with drug therapy traMADol hydrochloride 50 mg oral tablet (14 sources) Opioid Agonist Start: 2024 take 1 tablet by mouth every six hours as needed for pain Tramadol 50 mg tablet Active 50 mg PO EVERY 6 HOURS as needed for pain 15 0 August 18, 2024 12:00am Carcinoma of breast metastatic to bone Thoracic radiculopathy Malignant neoplasm of unspecified site of unspecified female breast Secondary malignant neoplasm of bone Radiculopathy, thoracic region Complies with drug therapy Completed/Discontinued Medications Medication Drug Class(es) Dates Sig [...] 02-Mar-2016 End : 07-Jul-2017 Inactive Comments: thirty Comment on above: thirty anastrozole 1 mg oral tablet (1 source) Aromatase Inhibitor take 1 tablet by mouth once daily Anastrozole 1 MG Oral Tablet 1 qd (1 MG) Active apixaban 5 mg oral tablet (20 sources) Factor Xa Inhibitor Start: 11-07-2021 End: 11-19-2021 take 1 tablet by mouth twice daily Apixaban (Eliquis) 5 mg tablet Discontinued 5 mg PO TWICE A DAY November 07, 2021 12:00am November 19, 2021 10:44am Start: 07-26-2019 apixaban (ELIQ UIS) 5 mg tab(s) Take 2 tablets twice a day for 7 days then 1 tablet twice a day thereafter. 74 tablet 0 07/26/2019 Active Comment on above: Take 2 tablets twice a day for 7 days then 1 tablet twice a day thereafter. calcium ascorbate 500 mg oral tablet (20 sources) Start: 3 End: 4 take 1 tablet by mouth once daily Ascorbate Calcium (Vitamin C) 500 mg tablet Discontinued 500 mg PO DAILY July 02, 2022 1:00am June 17, 2023 2:51pm capecitabine 500 mg oral tablet (20 sources) Nucleoside Metabolic Inhibitor Start: End: Capecitabine Discontinued 0 PO .COMPLEX 42 December 26, 2021 11:18am March 05, 2022 7:51am 1000 mg in AM and 500 mg in PM for 2 weeks then 1 week rest Start: 11-07-2021 End: 12-26-2021 Capecitabine 500 mg tablet D iscontinued PO November 07, 2021 12:00am December 26, 2021 9:37am Start: 05-12-2021 End: 06-10-2022 Capecitabine 500 mg tablet D iscontinued 0 .ROUTE .COMPLEX 42 2 March 05, 2022 8:51am June 10, 2022 9:35am Malignant neoplasm of overlapping sites of left female breast Estrogen receptor positive status [ER+] TAKE 2 TABLETS BY MOUTH IN THE MORNING AND 1 TABLET BY MOUTH IN THE EVENING FOR 2 WEEKS THEN 1 WEEK REST Comment on above: TAKE 2 TABLETS (1,00 0 MG) BY MOUTH TWICE DAILY FOR 14 DAYS ON AND 7 DAYS OFF EVERY 21 DAY CYCLE. 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 Malignant neoplasm metastatic to liver Malignant neoplasm of overlapping sites of left female breast Estrogen receptor positive status [ER+] Secondary malignant neoplasm of bone Malignant neoplasm of unspecified site of left female breast Secondary malignant neoplasm of liver and intrahepatic bile duct administer for 4 days, followed by 3 days off repeat cycle weekly Start: 11-30-2023 End: 01-18-2024 Capivasertib (Truqap) 200 mg tablet Discontinued 400 mg PO Q12H 64 4 November 30, 2023 12:00am January 18, 2024 4:33pm Malignant neoplasm metastatic to liver 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 Malignant neoplasm of overlapping sites of left female breast Estrogen receptor positive status [ER+] Secondary malignant neoplasm of bone Malignant neoplasm of unspecified site of left female breast administer for 4 days, followed by 3 days off; repeat cycle every week Start: 11-30-2023 End: 11-30-2023 Capivasertib (Truqap) 200 mg tablet Discontinued 200 mg PO Q12H 32 4 November 30, 2023 12:00am November 30, 2023 1:50pm administer for 4 days, followed by 3 days off repeat cycle weekly Start: 11-30-2023 End: 01-18-2024 Capivasertib (Truqap) 200 mg tablet Discontinued 400 mg PO Q12H 64 4 November 30, 2023 12:00am January 18, 2024 4:33pm administer for 4 days, followed by 3 days off; repeat cycle every week Capivasertib (20 sources) Start: 01-20-2024 End: 08-09-2024 Capivasertib 160 mg tablet D iscontinued 320 mg PO Q12H 64 16 January 20, 2024 9:47am August 09, 2024 4:45pm administer for 4 days, followed by 3 days off Start: 01-20-2024 End: 08-09-2024 Capivasertib 160 mg tablet D iscontinued 320 mg PO Q12H 64 January 20, 2024 9:47am August 09, 2024 4:45pm administer for 4 days, followed by 3 days off Start: 01-18-2024 End: 01-20-2024 Capivasertib 160 mg tablet D iscontinued 320 mg PO Q12H 64 16 January 18, 2024 12:00am January 20, 2024 9:48am administer for 4 days, followed by 3 days off Start: 01-18-2024 End: 01-20-2024 Capivasertib 160 mg tablet D iscontinued 320 mg PO Q12H 64 January 18, 2024 12:00am January 20, 2024 9:48am administer for 4 days, followed by 3 days off clobetasol propionate 0.5 mg/ml topical cream (20 sources) Corticosteroid Start: 11-07-2021 End: 11-19-2021 Clobetasol 0.05 % cream Discontinued 1 NMA TOPICAL DAILY November 07, 2021 12:00am November 19, 2021 10:45am Start: 06-19-2020 apply 60 g into the eye(s) twice daily clobetasol (TEMOVATE) 0.05 % cream Apply to affected area twice daily. (hands and feet; do not use on face or get in eyes). 60 g 5 06/19/2020 Active Comment on above: Apply to affected ar ea twice daily. (hands and feet; do not use on face or get in eyes). enteric contrast (will be provided with radiology test) (13 sources) Start: 1 enteric contrast (will be provided with radiology test) Indications: Malignant neoplasm of overlapping sites of left breast in female, estrogen receptor positive (HCC) , Bone metastases (HCC) , Liver metastasis (HCC) For CT CHESTABD/PEL W IVCON Routine order Administer, As Directed One Time Only, via Oral, Rectal, both Oral and Rectal, Enteric Tube, Stoma or Indwelling Catheter, Enteric Contrast as designated per enteric contrast guidelines 1 Each 0 06/19/2020 Active Comment on above: For CT CHESTABD/PEL W IVCON Routine order Administer, As Directed One Time Only, via Oral, Rectal, both Oral and Rectal, Enteric Tube, Stoma or Indwelling Catheter, Enteric Contrast as designated per enteric contrast guidelines famotidine 20 mg oral tablet (1 source) Histamine-2 Receptor Antagonist Start: 1 take 1 tablet by mouth once daily at bedtime famotidine (PEPCID) 20 mg tablet Indications: Liver metastasis (HCC) , RUQ pain Take 1 tablet by mouth daily at bedtime. 90 tablet 3 10/09/2020 Active Comment on above: Take 1 tablet by amanda th daily at bedtime. ferrous sulfate 325 mg oral tablet (20 sources) Start: 3 End: 4 take 1 tablet by mouth twice daily Ferrous Sulfate 325 mg (65 mg iron) tablet Discontinued 325 mg PO TWICE A DAY August 13, 2022 12:00am June 17, 2023 2:51pm Start: 04-16-2022 End: 07-02-2022 take 1 tablet by mouth once daily Ferrous Sulfate (Iron) 325 mg (65 mg iron) tablet Discontinued 325 mg PO DAILY April 16, 2022 1:00am July 02, 2022 3:07pm heparin (13 sources) Unfractionated Heparin, Anti-coagulant Start: 07-06-2018 heparin 100 unit/mL injection Access implanted vascular access device (IVAD) as needed for flush, blood draw or treatment. Before de-accessing port, flush with 10-20ml normal saline and follow with 5 mL heparin (100 units/mL) (if no heparin allergy). De-access port on treatment completion. 0 07/06/2018 Active Comment on above: Access implanted vascular access device (IVAD) as needed for flush, blood draw or treatment. Before de-accessing port, flush with 10-20ml normal saline and follow with 5 mL heparin (100 units/mL) (if no heparin allergy). De-access port on treatment completion. iv contrast (will be provided with radiology test) (13 sources) Start: 06-19-2020 iv contrast (will be provided with radiology test) Indications: Malignant neoplasm of overlapping sites of left breast in female, estrogen receptor positive (HCC) , Bone metastases (HCC) , Liver metastasis (HCC) CT Chest ABD/PEL-Inject, intravenously, once for 1 [...] in the CT contrast administration guidelines link. 1 Each 0 06/19/2020 Active Comment on above: CT Chest ABD/PEL-Inject, intravenously, once for 1 [...] in the CT contrast administration guidelines link. Magnesium (20 sources) Start: 08-13-2022 End: 11-19-2022 take 1 tablet by mouth once daily Magnesium 200 mg tablet Discontinued 200 mg PO DAILY August 13, 2022 12:00am November 19, 2022 1:14pm Start: 08-13-2022 End: 11-19-2022 take 200 mg by mouth once daily Magnesium Discontinued 200 MG PO DAILY August 12, 2022 11:00pm November 19, 2022 12:14pm Start: 08-13-2022 End: 11-19-2022 take 200 mg by mouth once daily Magnesium Discontinued 200 MG PO DAILY August 13, 2022 12:00am November 19, 2022 1:14pm mecobalamin 1 mg chewable tablet (20 sources) Start: 06-11-2022 End: 07-02-2022 take 1 tablet by mouth once daily Mecobalamin (Vitamin B12) 1,000 mcg tablet,chewable Discontinued 1000 ug PO DAILY June 11, 2022 1:00am July 02, 2022 3:06pm Start: 06-11-2022 take 1000 ug by mout h once daily Mecobalamin (Vitamin B12) Active 1000 MCG PO DAILY June 11, 2022 12:00am methylPREDNISolone 4 mg oral tablet (16 sources) Corticosteroid Start: 12-27-2023 End: 01-10-2024 take 1 tablet by mouth once Methylprednisolone (Medrol (Cecil)) 4 mg tablets,dose pack Discontinued 0 PO per package directions 21 0 December 27, 2023 12:00am January 10, 2024 3:46pm Dermatitis medicamentosa Generalized skin eruption due to drugs and medicaments taken internally PO PER PKG DIR Potassium Chloride 20 mEq packet (14 sources) Start: 02-01-2023 End: 03-04-2023 take 20 mEq by mouth twice daily Potassium Chloride 20 mEq packet Discontinued 20 meq PO TWICE A DAY 60 2 February 01, 2023 8:32am March 04, 2023 2:42pm Start: 02-01-2023 End: 03-04-2023 take 20 mEq by mouth twice daily Potassium Chloride 20 mEq packet Discontinued 20 meq PO TWICE A DAY 60 February 01, 2023 8:32am March 04, 2023 2:42pm Sodium Chloride (13 sources) Start: 10-13-2018 0.9 % sodium c hloride (0.9% NACL) Access implanted vascular access device (IVAD) as needed for flush, blood draw or treatment. Flush IVAD with 10-20 mL NS every 4 weeks and PRN when IVAD not in use. 2 Syringe 50 10/13/2018 Active Comment on above: Access implanted vas cular access device (IVAD) as needed for flush, blood draw or treatment. Flush IVAD with 10-20 mL NS every 4 weeks and PRN when IVAD not in use. 5 ml zoledronic acid 0.8 mg/ml injection (1 source) Bisphosphonate Zometa 4 MG Intravenous Solution Reconstituted 1 q 3months (4 MG) Active Problems Active Problems Problem Classification Problem Date Documented Date Episodic/Chronic Administrative/socia l admission (1 source) Counseling, unspecified; Translations: [Counseling NOS] 06-03-2022 Episodic Allergic reactions (20 sources) Eruption due to drug; Translations: [Generalized skin eruption due to drugs and medicaments taken internally] Onset: 09-13-2020 09-13-2020 Episodic Cancer of breast (20 sources) Primary malignant neoplasm of breast; Translations: [Metastasis from malignant tumor of breast] Onset: 09-12-2015 07-07-2017 Chronic Comment on above: left breast invasive ductual Grade II Cancer of kidney and renal pelvis (20 sources) Malignant tumor of kidney; Translations: [Malignant neoplasm of right kidney, except renal pelvis] Onset: 02-01-2017 07-07-2017 Chronic Complications of surgical procedures or medical care (1 source) Anemia due to antineoplastic chemotherapy; Translations: [Anemia due to antineoplastic chemotherapy] Onset: 03-15-2025 Chronic Deficiency and other anemia (20 sources) Iron deficiency anemia due to blood loss; Translations: [Iron deficiency anemia secondary to blood loss (chronic)] 05-19-2022 Chronic Deficiency and other anemia (20 sources) Iron deficiency anemia secondary to blood loss (chronic); Translations: [Iron deficiency anemia secondary to blood loss (chronic)] Onset: 02-22-2025 05-19-2022 Chronic Deficiency and other anemia (20 sources) Anemia; Translations: [Anemia, unspecified] 03-26-2022 Episodic Deficiency and other anemia (20 sources) Anemia, unspecified; Translations: [Anemia, unspecified] Episodic Diseases of white blood cells (18 sources) Drug-induced neutropenia; 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] Onset: 08-09-2024 08-09-2024 Chronic E Codes: Adverse effects of medical drugs (1 source) Adverse effect of antineoplastic and immunosuppressive drugs, initial encounter; Translations: [Adverse effect of antineoplastic and immunosuppressive drugs, initial encounter] Onset: 03-15-2025 Episodic Fluid and electrolyte disorders (20 sources) Dehydration; Translations: [Dehydration] Onset: 03-09-2018 03-09-2018 Episodic Maintenance chemotherapy; radiotherapy (6 sources) Patient encounter status; Translations: [Encounter for antineoplastic chemotherapy] 12-21-2024 Chronic Nausea and vomiting (20 sources) Chemotherapy-induced nausea and vomiting; Translations: [Nausea with vomiting, unspecified] 01-21-2023 Episodic Nonspecific chest pain (14 sources) Left sided chest pain; Translations: [Chest pain, unspecified] 08-18-2024 Episodic Other aftercare (4 sources) Drug therapy finding; Translations: [Encounter for therapeutic drug level monitoring] 01-21-2023 Episodic Other aftercare (1 source) Encounter for therapeutic drug level monitoring; Translations: [Encounter for therapeutic drug monitoring] 01-21-2023 Episodic Other aftercare (16 sources) Long-term current use of drug therapy; Translations: [Encounter for therapeutic drug level monitoring] 01-21-2023 Episodic Other lower respiratory disease (2 sources) Cough; Translations: [Cough] 07-07-2017 Episodic Comment on above: gets CT scans every 6months not sound like asthma not sound like pertusiss not have bacterial signs and symptoms or even viral ? PND or reflux silent. been common in this area with weather change lungs sound good willtry claritin in am for 2 weeks then if not help try prilsec daily Other lower respiratory disease (20 sources) Nodule of lung; Translations: [Solitary pulmonary nodule] 11-19-2021 Episodic Other lower respiratory disease (13 sources) Solitary pulmonary nodule; Translations: [Solitary pulmonary nodule] Episodic Other screening for suspected conditions (not mental disorders or infectious disease) (20 sources) Patient encounter status; Translations: [Encounter for screening for malignant neoplasm of colon] Episodic Residual codes; unclassified (2 sources) Estrogen receptor positive status [ER+]; Translations: [Estrogen receptor positive status [ER+]] Onset: 02-19-2025 Episodic Secondary malignancies (20 sources) Secondary malignant neoplasm of bone; Translations: [Secondary malignant neoplasm of bone] Onset: 01-15-2016 01-15-2016 Chronic Secondary malignancies (20 sources) Secondary malignant neoplasm of liver; Translations: [Secondary malignant neoplasm of liver and intrahepatic bile duct] Onset: 10-21-2017 10-21-2017 Chronic Secondary malignancies (20 sources) Secondary malignant neoplasm of bone; Translations: [Secondary malignant neoplasm of bone and bone marrow] Onset: 02-19-2025 Chronic Secondary malignancies (20 sources) Secondary malignant neoplasm of liver and intrahepatic bile duct; Translations: [Malignant neoplasm of liver, secondary] Onset: 02-19-2025 Chronic Secondary malignancies (2 sources) 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 Secondary malignancies (2 sources) Secondary and unspecified 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; Translations: [Secondary and unspecified 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] Onset: 02-19-2025 Chronic Spondylosis; intervertebral disc disorders; other back problems (14 sources) Thoracic radiculopathy; Translations: [Radiculopathy, thoracic region] 08-18-2024 Episodic Unclassified (12 sources) 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,C50.812 - Malignant neoplasm of overlapping sites of left female breast,Z17.0 - Estrogen receptor positive status [ER+],C50.912 - Malignant neoplasm of unspecified site of left female breast,C77.3 - Secondary and unspecified 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 Unclassified (6 sources) 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 Unclassified (6 sources) 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 Unclassified (5 sources) Malignant neoplasm of right kidney, except renal pelvis Unclassified (5 sources) Malignant neoplasm metastatic to liver Unclassified (1 source) C50.812 - Malignant neoplasm of overlapping sites of left female breast,Z17.0 - Estrogen receptor positive status [ER+],C64.1 - Malignant neoplasm of right kidney, except renal pelvis,C50.912 - Malignant neoplasm of unspecified site of left female breast,C77.3 - Secondary and unspecified 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,C78.7 - Secondary malignant neoplasm of liver and intrahepatic bile duct Unclassified (4 sources) Malignant neoplasm metastatic to bone Unclassified (6 sources) C50.912 - Malignant neoplasm of unspecified site of left female breast,C77.3 - Secondary and unspecified 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,C79.51 - Secondary malignant neoplasm of bone,C64.1 - Malignant neoplasm of right kidney, except renal pelvis,C50.812 - Malignant neoplasm of overlapping sites of left female breast,Z17.0 - Estrogen receptor positive status [ER+],C78.7 - Secondary malignant neoplasm of liver and intrahepatic bile duct Past or Other Problems Problem Classification Problem Date Documented Date Episodic/Chronic Abdominal pain (1 source) Left upper quadrant pain; Translations: [Left upper quadrant pain] Onset: 08-23-2024 Episodic Complication of device; implant or graft (20 sources) Complication of intravascular line; Translations: [Unspecified complication of cardiac and vascular prosthetic device, implant and graft, initial encounter] Onset: 09-28-2024 09-28-2024 Episodic Diseases of mouth; excluding dental (13 sources) Inflammatory disease of mucous membrane; Translations: [Other forms of stomatitis] Onset: 03-09-2018 03-09-2018 Episodic Nonmalignant breast conditions (1 source) Unspecified lump in the left breast, unspecified quadrant; Translations: [Left breast lump] 07-07-2017 Comment on above: massive with peu de orange 13cmx 10 Unclassified (1 source) Cancer of kidney, right Unclassified (1 source) Breast cancer in female Unclassified (1 source) Unclassified (2 sources) Left breast lump Results Test Name Value Interpretation Reference Range Facility CA 15-3on 03-16-2025 CA 15-3 310.0 U/mL Abnormal 0.0-25.0 [facility] Comment on above: Result Comment: Resu lts confirmed ondilution.[employer] Electrochemiluminescence Immunoassay(ECLIA)Values obtained with different assay methods or kits cannotbe used interchangeably. Results cannot be interpreted asabsolute evidence of the presence or absence of malignantdisease.Performed at: - [facility] [id number] Director: Robert Montana PhD, Phone: [phone] Performed By: #### L 375.8825, U2448.8624, L100.0510, L500.2489, L575.8808, L3522.8824 ####[facility] [address] [place], [place], [id number] CA 27.29on 03-16-2025 CA 27.29 407.1 U/mL Abnormal 0.0-38.6 [facility] Comment on above: Result Comment: Siem [employer] Centaur Immunochemiluminometric Methodology (ICMA)Values obtained with different assay methods or kits cannotbe used interchangeably. Results cannot be interpreted asabsolute evidence of the presence or absence of malignantdisease. Performed By: #### L 503.6030, L3100.5030, L100.0100, L500.4050, L503.6550, L3100.5040 ####[facility] [address] [place], [address] CBC W/Diff, Automatedon 10-3 SMEAR COMMENT SCANNED Normal [facility] Comment on above: Performed By: #### L 503.6030, L3100.5030, L100.0100, L500.4050, L503.6550, L3100.5040 ####[facility] [address] [place], [address] Absolute Neut Normal 2.0-7.7 [facility] Comment on above: Result Comment: SEE 1030;H200 Performed By: #### L 100.0100, L500.4050 ####[facility] [address] [place], [address] HCT Normal 37-47 [facility] Comment on above: Result Comment: SEE 1030;H200 Performed By: #### L 100.0100, L500.4050 ####[facility] [address] [place], [address] HGB Normal 12.0-15.0 [facility] Comment on above: Result Comment: SEE 1030;H200 Performed By: #### L 100.0100, L500.4050 ####[facility] [address] [place], [address] MCH Normal 27.0-32.0 [facility] Comment on above: Result Comment: SEE 1030;H200 Performed By: #### L 100.0100, L500.4050 ####[facility] [address] [place], [address] MCHC Normal 32-36 [facility] Comment on above: Result Comment: SEE 1030;H200 Performed By: #### L 100.0100, L500.4050 ####[facility] [address] [place], [address] MCV Normal 81-99 [facility] Comment on above: Result Comment: SEE 1030;H200 Performed By: #### L 100.0100, L500.4050 ####[facility] [address] [place], [address] NEUT% Normal 47-70 [facility] Comment on above: Result Comment: SEE 1030;H200 Performed By: #### L 100.0100, L500.4050 ####[facility] [address] [place], [address] PLT Normal 150-450 [facility] Comment on above: Result Comment: SEE 1030;H200 Performed By: #### L 100.0100, L500.4050 ####[facility] [address] [place], [address] RBC Normal 4.2-5.4 [facility] Comment on above: Result Comment: SEE 1030;H200 Performed By: #### L 100.0100, L500.4050 ####[facility] [address] [place], [address] RDW CV Normal 11.6-14.6 [facility] Comment on above: Result Comment: SEE 1030;H200 Performed By: #### L 100.0100, L500.4050 ####[facility] [address] [place], [address] RDW SD Normal 35.1-43.9 [facility] Comment on above: Result Comment: SEE 1030;H200 Performed By: #### L 100.0100, L500.4050 ####[facility] [address] [place], [address] WBC Normal 4.4-11.0 [facility] Comment on above: Result Comment: SEE 1030;H200 Performed By: #### L 100.0100, L500.4050 ####[facility] [address] [place], [address] Comprehensive Metabolic Prof ilon 03-15-2025 Albumin [Mass/Vol] 4.2 g/dL Normal 3.5-5.0 [facility] Comment on above: Performed By: #### L 503.6030, L3100.5030, L100.0100, L500.4050, L503.6550, L3100.5040 ####[facility] [address] [place], [address] Albumin/Globulin [Mass ratio] 1.9 {ratio} Normal 0.9-2.4 [facility] Comment on above: Performed By: #### L 503.6030, L3100.5030, L100.0100, L500.4050, L503.6550, L3100.5040 ####[facility] [address] [place], [address] ALK PHOS 172 U/L High 35-104 [facility] Comment on above: Performed By: #### L 503.6030, L3100.5030, L100.0100, L500.4050, L503.6550, L3100.5040 ####[facility] [address] [place], [address] ALT [Catalytic activity/Vol] 13 U/L Normal <=34 [facility] Comment on above: Performed By: #### L 503.6030, L3100.5030, L100.0100, L500.4050, L503.6550, L3100.5040 ####[facility] [address] [place], [address] AST [Catalytic activity/Vol] 29 U/L Normal <=31 [facility] Comment on above: Performed By: #### L 503.6030, L3100.5030, L100.0100, L500.4050, L503.6550, L3100.5040 ####[facility] [address] [place], [address] Bilirubin [Mass/Vol] 0.41 mg/dL Normal 0.00-1.30 [facility] Comment on above: Performed By: #### L 503.6030, L3100.5030, L100.0100, L500.4050, L503.6550, L3100.5040 ####[facility] [address] [place], [address] BUN/CRE 28.5 RATIO High 10-20 [facility] Comment on above: Performed By: #### L 503.6030, L3100.5030, L100.0100, L500.4050, L503.6550, L3100.5040 ####[facility] [address] [place], [address] Calcium [Mass/Vol] 8.7 mg/dL Normal 7.6-11.0 [facility] Comment on above: Performed By: #### L 503.6030, L3100.5030, L100.0100, L500.4050, L503.6550, L3100.5040 ####[facility] [address] [place], [address] Chloride [Moles/Vol] 107 mmol/L Normal 98-108 [facility] Comment on above: Performed By: #### L 503.6030, L3100.5030, L100.0100, L500.4050, L503.6550, L3100.5040 ####[facility] [address] [place], [address] CO2 [Moles/Vol] 22.1 mmol/L Normal 21.0-32.0 [facility] Comment on above: Performed By: #### L 503.6030, L3100.5030, L100.0100, L500.4050, L503.6550, L3100.5040 ####[facility] [address] [place], [address] Creatinine [Mass/Vol] 0.48 mg/dL Low 0.70-1.20 [facility] Comment on above: Performed By: #### L 503.6030, L3100.5030, L100.0100, L500.4050, L503.6550, L3100.5040 ####[facility] [address] [place], [address] ECRCL 113.32 ml/min Normal 50-250 [facility] Comment on above: Performed By: #### L 503.6030, L3100.5030, L100.0100, L500.4050, L503.6550, L3100.5040 ####[facility] [address] [place], [address] GAP 11 Normal 5-15 [facility] Comment on above: Performed By: #### L 503.6030, L3100.5030, L100.0100, L500.4050, L503.6550, L3100.5040 ####[facility] [address] [place], [address] GFR/1.73 sq M.predicted among non-blacks MDRD (S/P/Bld) [Vol rate/Area] 112 mL/min/{1.73_m2} Normal >60 [facility] Comment on above: Result Comment: mL/m in/1.73m2 CKD-EPI Creatinine Equation (2020) Performed By: #### L 503.6030, L3100.5030, L100.0100, L500.4050, L503.6550, L3100.5040 ####[facility] [address] [place], [address] Globulin (S) [Mass/Vol] 2.3 g/dL Normal 2.2-4.2 [facility] Comment on above: Performed By: #### L 503.6030, L3100.5030, L100.0100, L500.4050, L503.6550, L3100.5040 ####[facility] [address] [place], [address] Glucose [Mass/Vol] 126 mg/dL High 70-99 [facility] Comment on above: Performed By: #### L 503.6030, L3100.5030, L100.0100, L500.4050, L503.6550, L3100.5040 ####[facility] [address] [place], [address] Potassium [Moles/Vol] 4.0 mmol/L Normal 3.3-5.1 [facility] Comment on above: Performed By: #### L 503.6030, L3100.5030, L100.0100, L500.4050, L503.6550, L3100.5040 ####[facility] [address] [place], [address] Sodium [Moles/Vol] 140 mmol/L Normal 133-145 [facility] Comment on above: Performed By: #### L 503.6030, L3100.5030, L100.0100, L500.4050, L503.6550, L3100.5040 ####[facility] [address] [place], [address] T PROT 6.5 g/dL Normal 5.9-8.4 [facility] Comment on above: Performed By: #### L 503.6030, L3100.5030, L100.0100, L500.4050, L503.6550, L3100.5040 ####[facility] [address] [place], [address] Urea nitrogen [Mass/Vol] 14 mg/dL Normal 4-19 [facility] Comment on above: Performed By: #### L 503.6030, L3100.5030, L100.0100, L500.4050, L503.6550, L3100.5040 ####[facility] [address] [place], [address] ALB Normal 3.5-5.0 [facility] Comment on above: Result Comment: 1030 :C272 COMPLETED Performed By: #### L 100.0100, L500.4050 ####[facility] [address] [place], [address] ALK PHOS Normal 35-104 [facility] Comment on above: Result Comment: 1030 :C272 COMPLETED Performed By: #### L 100.0100, L500.4050 ####[facility] [address] [place], [address] ALT Normal <=34 [facility] Comment on above: Result Comment: 1030 :C272 COMPLETED Performed By: #### L 100.0100, L500.4050 ####[facility] [address] [place], [address] AST Normal <=31 [facility] Comment on above: Result Comment: 1030 :C272 COMPLETED Performed By: #### L 100.0100, L500.4050 ####[facility] [address] [place], [address] BUN Normal 4-19 [facility] Comment on above: Result Comment: 1030 :C272 COMPLETED Performed By: #### L 100.0100, L500.4050 ####[facility] [address] [place], [address] BUN/CRE Normal 10-20 [facility] Comment on above: Result Comment: 1030 :C272 COMPLETED Performed By: #### L 100.0100, L500.4050 ####[facility] [address] [place], [address] Calcium Normal 7.6-11.0 [facility] Comment on above: Result Comment: 1030 :C272 COMPLETED Performed By: #### L 100.0100, L500.4050 ####[facility] [address] [place], [address] CL Normal 98-108 [facility] Comment on above: Result Comment: 1030 :C272 COMPLETED Performed By: #### L 100.0100, L500.4050 ####[facility] [address] [place], [address] CO2 Normal 21.0-32.0 [facility] Comment on above: Result Comment: 1030 :C272 COMPLETED Performed By: #### L 100.0100, L500.4050 ####[facility] [address] [place], [address] CREAT,SERUM Normal 0.70-1.20 [facility] Comment on above: Result Comment: 1030 :C272 COMPLETED Performed By: #### L 100.0100, L500.4050 ####[facility] [address] [place], [address] eGFR Normal >60 [facility] Comment on above: Result Comment: 1030 :C272 COMPLETED Performed By: #### L 100.0100, L500.4050 ####[facility] [address] [place], [address] GAP Normal 5-15 [facility] Comment on above: Result Comment: 1030 :C272 COMPLETED Performed By: #### L 100.0100, L500.4050 ####[facility] [address] [place], [address] GLU Normal 70-99 [facility] Comment on above: Result Comment: 1030 :C272 COMPLETED Performed By: #### L 100.0100, L500.4050 ####[facility] [address] [place], [address] Potassium Normal 3.3-5.1 [facility] Comment on above: Result Comment: 1030 :C272 COMPLETED Performed By: #### L 100.0100, L500.4050 ####[facility] [address] [place], [address] T BILI Normal 0.00-1.30 [facility] Comment on above: Result Comment: 1030 :C272 COMPLETED Performed By: #### L 100.0100, L500.4050 ####[facility] [address] [place], [address] T PROT Normal 5.9-8.4 [facility] Comment on above: Result Comment: 1030 :C272 COMPLETED Performed By: #### L 100.0100, L500.4050 ####[facility] [address] [place], [address] Comprehensive Metabolic Profil Normal 133-145 [facility] Comment on above: Result Comment: 1030 :C272 COMPLETED Performed By: #### L 100.0100, L500.4050 ####[facility] [address] [place], [address] Ferritinon 03-15-2025 Ferritin [Mass/Vol] 1476 ng/mL High 22-378 [facility] Comment on above: Performed By: #### L 503.6030, L3100.5030, L100.0100, L500.4050, L503.6550, L3100.5040 ####[facility] [address] [place], [address] Iron+Iron Binding Capacityon 03-15-2025 Iron [Mass/Vol] 102 ug/dL Normal 50-170 [facility] Comment on above: Performed By: #### L 503.6030, L3100.5030, L100.0100, L500.4050, L503.6550, L3100.5040 ####[facility] [address] [place], [address] IRON SATURATION 37.6 Normal 13-59 [facility] Comment on above: Performed By: #### L 503.6030, L3100.5030, L100.0100, L500.4050, L503.6550, L3100.5040 ####[facility] [address] [place], [address] TIBC 271 ug/dL Normal 250-450 [facility] Comment on above: Performed By: #### L 503.6030, L3100.5030, L100.0100, L500.4050, L503.6550, L3100.5040 ####[facility] [address] [place], [address] UIBC 169 ug/dL Low 228-428 [facility] Comment on above: Performed By: #### L 503.6030, L3100.5030, L100.0100, L500.4050, L503.6550, L3100.5040 ####[facility] [address] [place], [address] Oncology Visit Reporton 02-16 Oncology Visit Report Normal [facility] CA 27.29on 02-24-2025 CA 27.29 366.8 U/mL Abnormal 0.0-38.6 [facility] Comment on above: Result Comment: [employer] Immunochemiluminometric Methodology (ICMA)Values obtained with different assay methods or kits cannotbe used interchangeably. Results cannot be interpreted asabsolute evidence of the presence or absence of malignantdisease.Performed at: [facility] [employer] [id number] Director: Robert Montana PhD, Phone: [phone] Performed By: #### L 501.4614, X7796.4682, E613.2640 ####[facility] [address] [place], [address] Absolute lymphocyte countOrd ered By[facility] 02-22-2025 Lymphocytes Auto (Unsp spec) [#/Vol] 0.50 10*3/uL Low 0.83-4.51 [facility] Absolute neutrophil countOrd ered By: [facility] on 02-22-2025 Neutrophils (Bld) [#/Vol] 9.4 10*3/uL High 2.0-7.7 [facility] Anion gap in Serum or Plasma Ordered By: [facility] on 02-22-2025 Anion gap [Moles/Vol] 12 mmol/L 5-15 [facility] Automated lymphocyte count a s percentage of total leukocytesOrdered By: [facility] on 02-22-2025 Lymphocytes/100 WBC Auto (Unsp spec) 5.0 % Low 19-41 [facility] BUN/creatinine ratioOrdered By: [facility] on 02-22-2025 Urea nitrogen/Creatinine [Mass ratio] 34.0 mg/mg High 10-20 [facility] Basophil percentageOrdered B y: Olivia Castillo on 02-22-2025 Basophils/100 WBC (Bld) 0.0 % 0-1 [facility] Bilirubin, totalOrdered By: Olivia Castillo on 02-22-2025 Bilirubin [Mass/Vol] 0.34 mg/dL 0.00-1.30 [facility] Blood manual differential co mment interpretation (narrative result)Ordered By: [facility] on 02-22-2025 Manual differential comment Manish (Bld) [Interp] SCANNED [facility] CA 27.29Ordered By: [facility] on 02-22-2025 CA 27.29 366.8 U/mL High 0.0-38.6 [facility] Comment on above: [employer] Centaur Immu nochemiluminometric Methodology (ICMA)Values obtained with different assay methods or kits cannotbe used interchangeably. Results cannot be interpreted asabsolute evidence of the presence or absence of malignantdisease.Performed at: - [facility] [id number] Director: Robert Montana PhD, Phone: [phone] CBC W/Diff, Automatedon 100 PLT EST ADEQUATE Normal ADEQ [facility] Comment on above: Performed By: #### L 500.4050, L100.0100 ####[facility] [address] [place], [address] SMEAR COMMENT SCANNED Normal [facility] Comment on above: Performed By: #### L 500.4050, L100.0100 ####[facility] [address] [place], [address] Carbon dioxide, total [Moles /volume] in Central venous bloodOrdered By: Olivia Castillo on 02-22-2025 CO2 [Moles/Vol] 19.7 mmol/L Low 21.0-32.0 [facility] Chloride assayOrdered By: Morgan Castillo on 02-22-2025 Chloride [Moles/Vol] 107 mmol/L 98-108 [facility] Comprehensive Metabolic Prof ilon 02-22-2025 Albumin [Mass/Vol] 4.2 g/dL Normal 3.5-5.0 [facility] Comment on above: Performed By: #### L 500.4050, L100.0100 ####[facility] [address] [place], [address] Albumin/Globulin [Mass ratio] 1.8 {ratio} Normal 0.9-2.4 [facility] Comment on above: Performed By: #### L 500.4050, L100.0100 ####[facility] [address] [place], [address] ALK PHOS 180 U/L High 35-104 [facility] Comment on above: Performed By: #### L 500.4050, L100.0100 ####[facility] [address] [place], [address] ALT [Catalytic activity/Vol] 12 U/L Normal <=34 [facility] Comment on above: Performed By: #### L 500.4050, L100.0100 ####[facility] [address] [place], [address] AST [Catalytic activity/Vol] 28 U/L Normal <=31 [facility] Comment on above: Performed By: #### L 500.4050, L100.0100 ####[facility] [address] [place], [address] Bilirubin [Mass/Vol] 0.34 mg/dL Normal 0.00-1.30 [facility] Comment on above: Performed By: #### L 500.4050, L100.0100 ####[facility] [address] [place], [address] BUN/CRE 34.0 RATIO High 10-20 [facility] Comment on above: Performed By: #### L 500.4050, L100.0100 ####[facility] [address] [place], [address] Calcium [Mass/Vol] 8.5 mg/dL Normal 7.6-11.0 [facility] Comment on above: Performed By: #### L 500.4050, L100.0100 ####[facility] [address] [place], [address] Chloride [Moles/Vol] 107 mmol/L Normal 98-108 [facility] Comment on above: Performed By: #### L 500.4050, L100.0100 ####[facility] [address] [place], [address] CO2 [Moles/Vol] 19.7 mmol/L Low 21.0-32.0 [facility] Comment on above: Performed By: #### L 500.4050, L100.0100 ####[facility] [address] [place], [address] Creatinine [Mass/Vol] 0.42 mg/dL Low 0.70-1.20 [facility] Comment on above: Performed By: #### L 500.4050, L100.0100 ####[facility] [address] [place], [address] ECRCL 129.37 ml/min Normal 50-250 [facility] Comment on above: Performed By: #### L 500.4050, L100.0100 ####[facility] [address] [place], [address] GAP 12 Normal 5-15 [facility] Comment on above: Performed By: #### L 500.4050, L100.0100 ####[facility] [address] [place], [address] GFR/1.73 sq M.predicted among non-blacks MDRD (S/P/Bld) [Vol rate/Area] 115 mL/min/{1.73_m2} Normal >60 [facility] Comment on above: Result Comment: mL/m in/1.73m2 CKD-EPI Creatinine Equation (2020) Performed By: #### L 500.4050, L100.0100 ####[facility] [address] [place], [address] Globulin (S) [Mass/Vol] 2.3 g/dL Normal 2.2-4.2 [facility] Comment on above: Performed By: #### L 500.4050, L100.0100 ####[facility] [address] [place], [address] Glucose [Mass/Vol] 130 mg/dL High 70-99 [facility] Comment on above: Performed By: #### L 500.4050, L100.0100 ####[facility] [address] [place], [address] Potassium [Moles/Vol] 3.8 mmol/L Normal 3.3-5.1 [facility] Comment on above: Performed By: #### L 500.4050, L100.0100 ####[facility] [address] [place], [address] Sodium [Moles/Vol] 139 mmol/L Normal 133-145 [facility] Comment on above: Performed By: #### L 500.4050, L100.0100 ####[facility] [address] [place], [address] T PROT 6.5 g/dL Normal 5.9-8.4 [facility] Comment on above: Performed By: #### L 500.4050, L100.0100 ####[facility] [address] [place], [address] Urea nitrogen [Mass/Vol] 14 mg/dL Normal 4-19 [facility] Comment on above: Performed By: #### L 500.4050, L100.0100 ####[facility] [address] [place], [address] Eosinophil percentageOrdered By: Olivia Castillo on 02-22-2025 Eosinophils/100 WBC (Bld) 0.1 % 0-5 [facility] Erythrocyte distribution wid th ratioOrdered By: Olivia Castillo on 02-22-2025 Erythrocyte distribution width (RBC) [Ratio] 15.0 % High 11.6-14.6 [facility] Erythrocyte distribution wid th standard deviationOrdered By: Olivia Castillo on 02-22-2025 Erythrocyte distribution width (RBC) [Ratio] 50.2 fl High 35.1-43.9 [facility] Glomerular filtration rate ( GFR) estimation/1.73 sq m using serum, plasma, or whole bOrdered By: Olivia Castillo on 02-22-2025 GFR/1.73 sq M.predicted among non-blacks MDRD (S/P/Bld) [Vol rate/Area] 115 mL/min/{1.73_m2} >60 [facility] Comment on above: mL/min/1.73m2 CKD-EP I Creatinine Equation (2020) Hematocrit Auto (Bld) [Volum e fraction]Ordered By: Olivia Castillo on 02-22-2025 Hematocrit (Bld) [Volume fraction] 32.5 % Low 37-47 [facility] Hemoglobin measurementOrdere d By: Olivia Castillo on 02-22-2025 Hemoglobin (Bld) [Mass/Vol] 10.5 g/dL Low 12.0-15.0 [facility] Immature granulocytes/100 WB C Auto (Bld)Ordered By: [facility] on 02-22-2025 Immature granulocytes/100 WBC (Bld) 0.600 % 0.0-0.9 [facility] Comment on above: IG% - Immature Granu locytes (promyelocytes, myelocytes and metamyelocytes) > 1% indicates that a LEFT SHIFT is Present. Laboratory - Chemistry and C hemistry - challengeOrdered By: [facility] on 02-22-2025 AST [Catalytic activity/Vol] 28 U/L <32 [facility] MCV (mean corpuscular volume ) determinationOrdered By: Olivia Castillo on 02-22-2025 MCV (RBC) [Entitic vol] 91.0 fL 81-99 [facility] Magnesiumon 02-22-2025 Magnesium [Mass/Vol] 2.0 mg/dL Normal 1.5-2.2 [facility] Comment on above: Performed By: #### L 501.2300, L3100.5040, L501.5200 ####[facility] [address] [place], [place], [address] Magnesium measurement (mass/ volume)Ordered By: Olivia Castillo on 02-22-2025 Magnesium (Unsp spec) [Mass/Vol] 2.0 mg/dL 1.5-2.2 [facility] Mean corpuscular hemoglobin (MCH) determinationOrdered By: Olivia Castillo on 02-22-2025 MCH (RBC) [Entitic mass] 29.4 pg 27.0-32.0 [facility] Mean corpuscular hemoglobin concentration (MCHC) determinationOrdered By: Olivia Castillo on 02-22-2025 MCHC (RBC) [Mass/Vol] 32.3 g/dL 32-36 [facility] Monocyte percentageOrdered B y: lOivia Castillo on 02-22-2025 Monocytes/100 WBC (Bld) 0.7 % 0-10 [facility] Neutrophil percentageOrdered By: Olivia Castillo on 02-22-2025 Neutrophils/100 WBC (Bld) 93.6 % High 47-70 [facility] Nucleated red blood cell per centageOrdered By: Olivia Castillo on 02-22-2025 Nucleated RBC/100 WBC (Bld) [Ratio] 0 % 0-5 [facility] Oncology Visit Reporton 10-0 Oncology Visit Report Normal [facility] Phosphoruson 02-22-2025 Phosphate [Mass/Vol] 3.3 mg/dL Normal 2.7-4.5 [facility] Comment on above: Performed By: #### L 501.2300, L3100.5040, L501.5200 ####[facility] [address] [place], [address] Platelet countOrdered By: Morgan Castillo on 02-22-2025 Platelet count See comment 150-450 [facility] Comment on above: Please note: For thi s sample, a platelet estimate is provided rather than a platelet count due to platelet clumping. Other parameters associated with this sample are not affected by platelet clumping. If a more accurate platelet count is required, a redraw of the patient will be necessary. Platelet estimateOrdered By: Olivia Castillo on 02-22-2025 Platelets LM Ql (Bld) ADEQUATE ADEQ [facility] Potassium measurement (mass/ volume)Ordered By: Olivia Castillo on 02-22-2025 Potassium (Unsp spec) [Mass/Vol] 3.8 mmol/L 3.3-5.1 [facility] RBC Auto (Bld) [#/Vol]Ordere d By: Olivia Castillo on 02-22-2025 RBC (Bld) [#/Vol] 3.57 10*6/uL Low 4.2-5.4 [facility] Serum creatinine measurement (mass/volume)Ordered By: Olivia Castillo on 02-22-2025 Creatinine [Mass/Vol] 0.42 mg/dL Low 0.70-1.20 [facility] Serum globulin measurementOr dered By: Olivia Castillo on 02-22-2025 Globulin (S) [Mass/Vol] 2.3 g/dL 2.2-4.2 [facility] Serum glucose measurement (m ass/volume)Ordered By: Olivia Castillo on 02-22-2025 Glucose [Mass/Vol] 130 mg/dL High 70-99 [facility] Serum or plasma alanine real otransferase (ALT) measurementOrdered By: Olivia Castillo on 02-22-2025 ALT [Catalytic activity/Vol] 12 U/L <35 [facility] Serum or plasma albumin alistair urement (mass/volume)Ordered By: Olivia Castillo on 02-22-2025 Albumin [Mass/Vol] 4.2 g/dL 3.5-5.0 [facility] Serum or plasma albumin/glob ulin mass ratioOrdered By: Olivia Castillo on 02-22-2025 Albumin/Globulin [Mass ratio] 1.8 {ratio} 0.9-2.4 [facility] Serum or plasma alkaline jeff sphatase measurementOrdered By: Olivia Castillo on 02-22-2025 ALP [Catalytic activity/Vol] 180 U/L High 35-104 [facility] Serum or plasma calcium alistair urement (mass/volume)Ordered By: Olivia Castillo on 02-22-2025 Calcium [Mass/Vol] 8.5 mg/dL 7.6-11.0 [facility] Serum or plasma urea nitroge n measurement (mass/volume)Ordered By: Olivia Castillo on 02-22-2025 Urea nitrogen [Mass/Vol] 14 mg/dL 4-19 [facility] Sodium levelOrdered By: Gregoria Castillo on 02-22-2025 Sodium [Moles/Vol] 139 mmol/L 133-145 [facility] Total proteinOrdered By: Timothy rowe Jonathan on 02-22-2025 Protein [Mass/Vol] 6.5 g/dL 5.9-8.4 [facility] White blood cell (WBC) count Ordered By: Olivia Jonathan on 02-22-2025 WBC (Bld) [#/Vol] 10.0 10*3/uL 4.4-11.0 [facility] CA 27.29on 02-02-2025 CA 27.29 523.7 U/mL Abnormal 0.0-38.6 [facility] Comment on above: Result Comment: Spec imen was diluted in order to obtain results.Results were [email or web address] Immunochemiluminometric Methodology (ICMA)Values obtained with different assay methods or kits cannotbe used interchangeably. Results cannot be interpreted asabsolute evidence of the presence or absence of malignantdisease.Performed at: [facility] [place] [id number] Director: Robert Montana PhD, Phone: [phone] Performed By: #### L 501.2300, L501.5200, L3100.5040 ####[facility] [address] [place], [address] Absolute lymphocyte countOrd ered By: Olivia Jonathan on 02-01-2025 Lymphocytes Auto (Unsp spec) [#/Vol] 0.53 10*3/uL Low 0.83-4.51 [facility] Absolute neutrophil countOrd ered By: Olivia Castillo on 02-01-2025 Neutrophils (Bld) [#/Vol] 13.1 10*3/uL High 2.0-7.7 [facility] Anion gap in Serum or Plasma Ordered By: Olivia Castillo on 02-01-2025 Anion gap [Moles/Vol] 13 mmol/L 5-15 [facility] Automated lymphocyte count a s percentage of total leukocytesOrdered By: Olivia Castillo on 02-01-2025 Lymphocytes/100 WBC Auto (Unsp spec) 3.8 % Low 19-41 [facility] BUN/creatinine ratioOrdered By: Olivia Castillo on 02-01-2025 Urea nitrogen/Creatinine [Mass ratio] 31.5 mg/mg High 10-20 [facility] Basophil percentageOrdered B y: Olivia Castillo on 02-01-2025 Basophils/100 WBC (Bld) 0.1 % 0-1 [facility] Bilirubin, totalOrdered By: Olivia Castillo on 02-01-2025 Bilirubin [Mass/Vol] 0.49 mg/dL 0.00-1.30 [facility] CA 27.29Ordered By: Olivia Castillo on 02-01-2025 CA 27.29 523.7 U/mL High 0.0-38.6 [facility] Comment on above: Specimen was diluted in order to obtain results.Results were repeated.[employer] Immunochemiluminometric Methodology (ICMA)Values obtained with different assay methods or kits cannotbe used interchangeably. Results cannot be interpreted asabsolute evidence of the presence or absence of malignantdisease.Performed at: [place] [id number] Director: Robert Montana PhD, Phone: [phone] CBC W/Diff, Automatedon 01-15 Absolute Lymph 0.53 X10 3/uL Low 0.83-4.51 [facility] Comment on above: Performed By: #### L 100.0100, L500.4050 ####[facility] [address] [place], [address] Absolute Neut 13.1 X10 3/uL High 2.0-7.7 [facility] Comment on above: Performed By: #### L 100.0100, L500.4050 ####[facility] [address] [place], [address] Basophils/100 WBC (Bld) 0.1 % Normal 0-1 [facility] Comment on above: Performed By: #### L 100.0100, L500.4050 ####[facility] [address] [place], [address] Eosinophils/100 WBC (Bld) 0.0 % Normal 0-5 [facility] Comment on above: Performed By: #### L 100.0100, L500.4050 ####[facility] [address] [place], [address] Erythrocyte distribution width (RBC) [Ratio] 15.1 % High 11.6-14.6 [facility] Comment on above: Performed By: #### L 100.0100, L500.4050 ####[facility] [address] [place], [address] Hematocrit (Bld) [Volume fraction] 35.0 % Low 37-47 [facility] Comment on above: Performed By: #### L 100.0100, L500.4050 ####[facility] [address] [place], [address] Hemoglobin (Bld) [Mass/Vol] 11.4 g/dL Low 12.0-15.0 [facility] Comment on above: Performed By: #### L 100.0100, L500.4050 ####[facility] [address] [place], [address] IG% 0.500 Normal 0.0-0.9 [facility] Comment on above: Result Comment: IG% - Immature Granulocytes (promyelocytes, myelocytes andmetamyelocytes) > 1% indicates that a LEFT SHIFT is Present. Performed By: #### L 100.0100, L500.4050 ####[facility] [address] [place], [address] Lymphocytes/100 WBC (Bld) 3.8 % Low 19-41 [facility] Comment on above: Performed By: #### L 100.0100, L500.4050 ####[facility] [address] [place], [address] MCH (RBC) [Entitic mass] 29.9 pg Normal 27.0-32.0 [facility] Comment on above: Performed By: #### L 100.0100, L500.4050 ####[facility] [address] [place], [address] MCHC (RBC) [Mass/Vol] 32.6 g/dL Normal 32-36 [facility] Comment on above: Performed By: #### L 100.0100, L500.4050 ####[facility] [address] [place], [address] MCV (RBC) [Entitic vol] 91.9 fL Normal 81-99 [facility] Comment on above: Performed By: #### L 100.0100, L500.4050 ####[facility] [address] [place], [address] Monocytes/100 WBC (Bld) 0.7 % Normal 0-10 [facility] Comment on above: Performed By: #### L 100.0100, L500.4050 ####[facility] [address] [place], [address] Neutrophils/100 WBC (Bld) 94.9 % High 47-70 [facility] Comment on above: Performed By: #### L 100.0100, L500.4050 ####[facility] [address] [place], [address] Nucleated RBC (Bld) [#/Vol] 0 10*3/uL Normal 0-5 [facility] Comment on above: Performed By: #### L 100.0100, L500.4050 ####[facility] [address] [place], [address] Platelet mean volume (Bld) [Entitic vol] 9.7 fL Normal 6.2-12.0 [facility] Comment on above: Performed By: #### L 100.0100, L500.4050 ####[facility] [address] [place], [address] Platelets (Bld) [#/Vol] 243 10*3/uL Normal 150-450 [facility] Comment on above: Performed By: #### L 100.0100, L500.4050 ####[facility] [address] [place], [address] RBC (Bld) [#/Vol] 3.81 10*6/uL Low 4.2-5.4 [facility] Comment on above: Performed By: #### L 100.0100, L500.4050 ####[facility] [address] [place], [address] RDW SD 50.4 fl High 35.1-43.9 [facility] Comment on above: Performed By: #### L 100.0100, L500.4050 ####[facility] [address] [place], [address] WBC (Bld) [#/Vol] 13.8 10*3/uL High 4.4-11.0 [facility] Comment on above: Performed By: #### L 100.0100, L500.4050 ####[facility] [address] [place], [address] Carbon dioxide, total [Moles /volume] in Central venous bloodOrdered By: Olivia Castillo on 02-01-2025 CO2 [Moles/Vol] 20.3 mmol/L Low 21.0-32.0 [facility] Chloride assayOrdered By: Morgan Castillo on 02-01-2025 Chloride [Moles/Vol] 105 mmol/L 98-108 [facility] Comprehensive Metabolic Prof ilon 02-01-2025 Albumin [Mass/Vol] 4.6 g/dL Normal 3.5-5.0 [facility] Comment on above: Performed By: #### L 100.0100, L500.4050 ####[facility] [address] [place], [address] Albumin/Globulin [Mass ratio] 1.8 {ratio} Normal 0.9-2.4 [facility] Comment on above: Performed By: #### L 100.0100, L500.4050 ####[facility] [address] [place], [address] ALK PHOS 231 U/L High 35-104 [facility] Comment on above: Performed By: #### L 100.0100, L500.4050 ####[facility] [address] [place], [address] ALT [Catalytic activity/Vol] 23 U/L Normal <=34 [facility] Comment on above: Performed By: #### L 100.0100, L500.4050 ####[facility] [address] [place], [address] AST [Catalytic activity/Vol] 37 U/L High <=31 [facility] Comment on above: Performed By: #### L 100.0100, L500.4050 ####[facility] [address] [place], [address] Bilirubin [Mass/Vol] 0.49 mg/dL Normal 0.00-1.30 [facility] Comment on above: Performed By: #### L 100.0100, L500.4050 ####[facility] [address] [place], [address] BUN/CRE 31.5 RATIO High 10-20 [facility] Comment on above: Performed By: #### L 100.0100, L500.4050 ####[facility] [address] [place], [address] Calcium [Mass/Vol] 9.0 mg/dL Normal 7.6-11.0 [facility] Comment on above: Performed By: #### L 100.0100, L500.4050 ####[facility] [address] [place], [address] Chloride [Moles/Vol] 105 mmol/L Normal 98-108 [facility] Comment on above: Performed By: #### L 100.0100, L500.4050 ####[facility] [address] [place], [address] CO2 [Moles/Vol] 20.3 mmol/L Low 21.0-32.0 [facility] Comment on above: Performed By: #### L 100.0100, L500.4050 ####[facility] [address] [place], [address] Creatinine [Mass/Vol] 0.50 mg/dL Low 0.70-1.20 [facility] Comment on above: Performed By: #### L 100.0100, L500.4050 ####[facility] [address] [place], [address] ECRCL 108.67 ml/min Normal 50-250 [facility] Comment on above: Performed By: #### L 100.0100, L500.4050 ####[facility] [address] [place], [address] GAP 13 Normal 5-15 [facility] Comment on above: Performed By: #### L 100.0100, L500.4050 ####[facility] [address] [place], [address] GFR/1.73 sq M.predicted among non-blacks MDRD (S/P/Bld) [Vol rate/Area] 111 mL/min/{1.73_m2} Normal >60 [facility] Comment on above: Result Comment: mL/m in/1.73m2 CKD-EPI Creatinine Equation (2020) Performed By: #### L 100.0100, L500.4050 ####[facility] [address] [place], [address] Globulin (S) [Mass/Vol] 2.6 g/dL Normal 2.2-4.2 [facility] Comment on above: Performed By: #### L 100.0100, L500.4050 ####[facility] [address] [place], [address] Glucose [Mass/Vol] 137 mg/dL High 70-99 [facility] Comment on above: Performed By: #### L 100.0100, L500.4050 ####[facility] [address] [place], [address] Potassium [Moles/Vol] 3.9 mmol/L Normal 3.3-5.1 [facility] Comment on above: Performed By: #### L 100.0100, L500.4050 ####[facility] [address] [place], [address] Sodium [Moles/Vol] 139 mmol/L Normal 133-145 [facility] Comment on above: Performed By: #### L 100.0100, L500.4050 ####[facility] [address] [place], [address] T PROT 7.3 g/dL Normal 5.9-8.4 [facility] Comment on above: Performed By: #### L 100.0100, L500.4050 ####[facility] [address] [place], [address] Urea nitrogen [Mass/Vol] 16 mg/dL Normal 4-19 [facility] Comment on above: Performed By: #### L 100.0100, L500.4050 ####[facility] [address] [place], [address] Eosinophil percentageOrdered By: Olivia Castillo on 02-01-2025 Eosinophils/100 WBC (Bld) 0.0 % 0-5 [facility] Erythrocyte distribution wid th ratioOrdered By: [facility] on 02-01-2025 Erythrocyte distribution width (RBC) [Ratio] 15.1 % High 11.6-14.6 [facility] Erythrocyte distribution wid th standard deviationOrdered By: [facility] Jonathan on 02-01-2025 Erythrocyte distribution width (RBC) [Ratio] 50.4 fl High 35.1-43.9 [facility] Glomerular filtration rate ( GFR) estimation/1.73 sq m using serum, plasma, or whole bOrdered By: [facility] on 02-01-2025 GFR/1.73 sq M.predicted among non-blacks MDRD (S/P/Bld) [Vol rate/Area] 111 mL/min/{1.73_m2} >60 [facility] Comment on above: mL/min/1.73m2 CKD-EP I Creatinine Equation (2020) Hematocrit Auto (Bld) [Volum e fraction]Ordered By: [facility] Jonathan on 02-01-2025 Hematocrit (Bld) [Volume fraction] 35.0 % Low 37-47 [facility] Hemoglobin measurementOrdere d By: [facility] Jonathan on 02-01-2025 Hemoglobin (Bld) [Mass/Vol] 11.4 g/dL Low 12.0-15.0 [facility] Immature granulocytes/100 WB C Auto (Bld)Ordered By: [facility] on 02-01-2025 Immature granulocytes/100 WBC (Bld) 0.500 % 0.0-0.9 [facility] Comment on above: IG% - Immature Granu locytes (promyelocytes, myelocytes and metamyelocytes) > 1% indicates that a LEFT SHIFT is Present. Laboratory - Chemistry and C hemistry - challengeOrdered By: [facility] Jonathan on 02-01-2025 AST [Catalytic activity/Vol] 37 U/L High <32 [facility] MCV (mean corpuscular volume ) determinationOrdered By: [facility] on 02-01-2025 MCV (RBC) [Entitic vol] 91.9 fL 81-99 [facility] Magnesiumon 02-01-2025 Magnesium [Mass/Vol] 2.2 mg/dL Normal 1.5-2.2 [facility] Comment on above: Performed By: #### L 501.2300, L501.5200, L3100.5040 ####[facility] [address] [place], [place], [address] Magnesium measurement (mass/ volume)Ordered By: Olivia Castillo on 02-01-2025 Magnesium (Unsp spec) [Mass/Vol] 2.2 mg/dL 1.5-2.2 [facility] Mean corpuscular hemoglobin (MCH) determinationOrdered By: Olivia Castillo on 02-01-2025 MCH (RBC) [Entitic mass] 29.9 pg 27.0-32.0 [facility] Mean corpuscular hemoglobin concentration (MCHC) determinationOrdered By: Olivia Castillo on 02-01-2025 MCHC (RBC) [Mass/Vol] 32.6 g/dL 32-36 [facility] Mean platelet volume determi nationOrdered By: Olivia Castillo on 02-01-2025 Platelet mean volume (Bld) [Entitic vol] 9.7 fL 6.2-12.0 [facility] Monocyte percentageOrdered B y: Olivia Castillo on 02-01-2025 Monocytes/100 WBC (Bld) 0.7 % 0-10 [facility] Neutrophil percentageOrdered By: [facility] on 02-01-2025 Neutrophils/100 WBC (Bld) 94.9 % High 47-70 [facility] Nucleated red blood cell per centageOrdered By: Olivia Castillo on 02-01-2025 Nucleated RBC/100 WBC (Bld) [Ratio] 0 % 0-5 [facility] Oncology Visit Reporton 01-15 Oncology Visit Report Normal [facility] Phosphoruson 02-01-2025 Phosphate [Mass/Vol] 4.0 mg/dL Normal 2.7-4.5 [facility] Comment on above: Performed By: #### L 501.2300, L501.5200, L3100.5040 ####[facility] [address] [place], [place], [id number] Platelet countOrdered By: Morgan Castillo on 02-01-2025 Platelets (Bld) [#/Vol] 243 10*3/uL 150-450 [facility] Potassium measurement (mass/ volume)Ordered By: Olivia Castillo on 02-01-2025 Potassium (Unsp spec) [Mass/Vol] 3.9 mmol/L 3.3-5.1 [facility] RBC Auto (Bld) [#/Vol]Ordere d By: Olivia Castillo on 02-01-2025 RBC (Bld) [#/Vol] 3.81 10*6/uL Low 4.2-5.4 [facility] Serum creatinine measurement (mass/volume)Ordered By: Olivia Castillo on 02-01-2025 Creatinine [Mass/Vol] 0.50 mg/dL Low 0.70-1.20 [facility] Serum globulin measurementOr dered By: Olviia Castillo on 02-01-2025 Globulin (S) [Mass/Vol] 2.6 g/dL 2.2-4.2 [facility] Serum glucose measurement (m ass/volume)Ordered By: Olivia Castillo on 02-01-2025 Glucose [Mass/Vol] 137 mg/dL High 70-99 [facility] Serum or plasma alanine real otransferase (ALT) measurementOrdered By: Olivia Castillo on 02-01-2025 ALT [Catalytic activity/Vol] 23 U/L <35 [facility] Serum or plasma albumin alistair urement (mass/volume)Ordered By: Olivia Castillo on 02-01-2025 Albumin [Mass/Vol] 4.6 g/dL 3.5-5.0 [facility] Serum or plasma albumin/glob ulin mass ratioOrdered By: Olivia Castillo on 02-01-2025 Albumin/Globulin [Mass ratio] 1.8 {ratio} 0.9-2.4 [facility] Serum or plasma alkaline jeff sphatase measurementOrdered By: Olivia Castillo on 02-01-2025 ALP [Catalytic activity/Vol] 231 U/L High 35-104 [facility] Serum or plasma calcium alistair urement (mass/volume)Ordered By: Olivia Castillo on 09-18-2025 Calcium [Mass/Vol] 9.0 mg/dL 7.6-11.0 [facility] Serum or plasma urea nitroge n measurement (mass/volume)Ordered By: Olivia Tejedaadriane on 02-01-2025 Urea nitrogen [Mass/Vol] 16 mg/dL 4-19 [facility] Sodium levelOrdered By: Gregoria Tejedaadriane on 02-01-2025 Sodium [Moles/Vol] 139 mmol/L 133-145 [facility] Total proteinOrdered By: Timothy Tejedaadriane on 02-01-2025 Protein [Mass/Vol] 7.3 g/dL 5.9-8.4 [facility] White blood cell (WBC) count Ordered By: Olivia Tejedaadriane on 02-01-2025 WBC (Bld) [#/Vol] 13.8 10*3/uL High 4.4-11.0 [facility] Absolute lymphocyte countOrd ered By: Olivia Tejedaadriane on 01-11-2025 Lymphocytes Auto (Unsp spec) [#/Vol] 1.28 10*3/uL 0.83-4.51 [facility] Absolute neutrophil countOrd ered By: Olivia Tejedaadriane on 01-11-2025 Neutrophils (Bld) [#/Vol] 5.8 10*3/uL 2.0-7.7 [facility] Automated lymphocyte count a s percentage of total leukocytesOrdered By: Olivia Tejedaadriane on 01-11-2025 Lymphocytes/100 WBC Auto (Unsp spec) 16.4 % Low 19-41 [facility] Basophil percentageOrdered B y: Olivia Tejedaadriane on 01-11-2025 Basophils/100 WBC (Bld) 0.9 % 0-1 [facility] CBC W/Diff, Automatedon 12-16 Absolute Lymph 1.28 X10 3/uL Normal 0.83-4.51 [facility] Comment on above: Performed By: #### L 100.0100, L500.4050 ####[facility] [address] [place], [address] Absolute Neut 5.8 X10 3/uL Normal 2.0-7.7 [facility] Comment on above: Performed By: #### L 100.0100, L500.4050 ####[facility] [address] [place], [address] Basophils/100 WBC (Bld) 0.9 % Normal 0-1 [facility] Comment on above: Performed By: #### L 100.0100, L500.4050 ####[facility] [address] [place], [address] Eosinophils/100 WBC (Bld) 0.3 % Normal 0-5 [facility] Comment on above: Performed By: #### L 100.0100, L500.4050 ####[facility] [address] [place], [address] Erythrocyte distribution width (RBC) [Ratio] 14.6 % Normal 11.6-14.6 [facility] Comment on above: Performed By: #### L 100.0100, L500.4050 ####[facility] [address] [place], [address] Hematocrit (Bld) [Volume fraction] 34.6 % Low 37-47 [facility] Comment on above: Performed By: #### L 100.0100, L500.4050 ####[facility] [address] [place], [address] Hemoglobin (Bld) [Mass/Vol] 10.9 g/dL Low 12.0-15.0 [facility] Comment on above: Performed By: #### L 100.0100, L500.4050 ####[facility] [address] [place], [address] IG% 0.800 Normal 0.0-0.9 [facility] Comment on above: Result Comment: IG% - Immature Granulocytes (promyelocytes, myelocytes andmetamyelocytes) > 1% indicates that a LEFT SHIFT is Present. Performed By: #### L 100.0100, L500.4050 ####[facility] [address] [place], [address] Lymphocytes/100 WBC (Bld) 16.4 % Low 19-41 [facility] Comment on above: Performed By: #### L 100.0100, L500.4050 ####[facility] [address] [place], [address] MCH (RBC) [Entitic mass] 29.4 pg Normal 27.0-32.0 [facility] Comment on above: Performed By: #### L 100.0100, L500.4050 ####[facility] [address] [place], [address] MCHC (RBC) [Mass/Vol] 31.5 g/dL Low 32-36 [facility] Comment on above: Performed By: #### L 100.0100, L500.4050 ####[facility] [address] [place], [address] MCV (RBC) [Entitic vol] 93.3 fL Normal 81-99 [facility] Comment on above: Performed By: #### L 100.0100, L500.4050 ####[facility] [address] [place], [address] Monocytes/100 WBC (Bld) 6.7 % Normal 0-10 [facility] Comment on above: Performed By: #### L 100.0100, L500.4050 ####[facility] [address] [place], [address] Neutrophils/100 WBC (Bld) 74.9 % High 47-70 [facility] Comment on above: Performed By: #### L 100.0100, L500.4050 ####[facility] [address] [place], [address] Nucleated RBC (Bld) [#/Vol] 0 10*3/uL Normal 0-5 [facility] Comment on above: Performed By: #### L 100.0100, L500.4050 ####[facility] [address] [place], [address] Platelet mean volume (Bld) [Entitic vol] 9.5 fL Normal 6.2-12.0 [facility] Comment on above: Performed By: #### L 100.0100, L500.4050 ####[facility] [address] [place], [address] Platelets (Bld) [#/Vol] 287 10*3/uL Normal 150-450 [facility] Comment on above: Performed By: #### L 100.0100, L500.4050 ####[facility] [address] [place], [address] RBC (Bld) [#/Vol] 3.71 10*6/uL Low 4.2-5.4 [facility] Comment on above: Performed By: #### L 100.0100, L500.4050 ####[facility] [address] [place], [address] RDW SD 49.7 fl High 35.1-43.9 [facility] Comment on above: Performed By: #### L 100.0100, L500.4050 ####[facility] [address] [place], [address] WBC (Bld) [#/Vol] 7.8 10*3/uL Normal 4.4-11.0 [facility] Comment on above: Performed By: #### L 100.0100, L500.4050 ####[facility] [address] [place], [address] Comprehensive Metabolic Prof ilon 01-11-2025 Albumin [Mass/Vol] 4.2 g/dL Normal 3.5-5.0 [facility] Comment on above: Performed By: #### L 100.0100, L500.4050 ####[facility] [address] [place], [address] Albumin/Globulin [Mass ratio] 1.6 {ratio} Normal 0.9-2.4 [facility] Comment on above: Performed By: #### L 100.0100, L500.4050 ####[facility] [address] [place], [address] ALK PHOS 240 U/L High 35-104 [facility] Comment on above: Performed By: #### L 100.0100, L500.4050 ####[facility] [address] [place], [address] ALT [Catalytic activity/Vol] 15 U/L Normal <=34 [facility] Comment on above: Performed By: #### L 100.0100, L500.4050 ####[facility] [address] [place], [address] AST [Catalytic activity/Vol] 38 U/L High <=31 [facility] Comment on above: Performed By: #### L 100.0100, L500.4050 ####[facility] [address] [place], [address] Bilirubin [Mass/Vol] 0.43 mg/dL Normal 0.00-1.30 [facility] Comment on above: Performed By: #### L 100.0100, L500.4050 ####[facility] [address] [place], [address] BUN/CRE 18.1 RATIO Normal 10-20 [facility] Comment on above: Performed By: #### L 100.0100, L500.4050 ####[facility] [address] [place], [address] Calcium [Mass/Vol] 9.0 mg/dL Normal 7.6-11.0 [facility] Comment on above: Performed By: #### L 100.0100, L500.4050 ####[facility] [address] [place], [address] Chloride [Moles/Vol] 111 mmol/L High 98-108 [facility] Comment on above: Performed By: #### L 100.0100, L500.4050 ####[facility] [address] [place], [address] CO2 [Moles/Vol] 20.9 mmol/L Low 21.0-32.0 [facility] Comment on above: Performed By: #### L 100.0100, L500.4050 ####[facility] [address] [place], [address] Creatinine [Mass/Vol] 0.50 mg/dL Low 0.70-1.20 [facility] Comment on above: Performed By: #### L 100.0100, L500.4050 ####[facility] [address] [place], [address] ECRCL 109.72 ml/min Normal 50-250 [facility] Comment on above: Performed By: #### L 100.0100, L500.4050 ####[facility] [address] [place], [address] GAP 12 Normal 5-15 [facility] Comment on above: Performed By: #### L 100.0100, L500.4050 ####[facility] [address] [place], [address] GFR/1.73 sq M.predicted among non-blacks MDRD (S/P/Bld) [Vol rate/Area] 111 mL/min/{1.73_m2} Normal >60 [facility] Comment on above: Result Comment: mL/m in/1.73m2 CKD-EPI Creatinine Equation (2020) Performed By: #### L 100.0100, L500.4050 ####[facility] [address] [place], [address] Globulin (S) [Mass/Vol] 2.6 g/dL Normal 2.2-4.2 [facility] Comment on above: Performed By: #### L 100.0100, L500.4050 ####[facility] [address] [place], [address] Glucose [Mass/Vol] 79 mg/dL Normal 70-99 [facility] Comment on above: Performed By: #### L 100.0100, L500.4050 ####[facility] [address] [place], [address] Potassium [Moles/Vol] 3.9 mmol/L Normal 3.3-5.1 [facility] Comment on above: Performed By: #### L 100.0100, L500.4050 ####[facility] [address] [place], [address] Sodium [Moles/Vol] 143 mmol/L Normal 133-145 [facility] Comment on above: Performed By: #### L 100.0100, L500.4050 ####[facility] [address] [place], [address] T PROT 6.9 g/dL Normal 5.9-8.4 [facility] Comment on above: Performed By: #### L 100.0100, L500.4050 ####[facility] [address] [place], [address] Urea nitrogen [Mass/Vol] 9 mg/dL Normal 4-19 [facility] Comment on above: Performed By: #### L 100.0100, L500.4050 ####[facility] [address] [place], [address] Eosinophil percentageOrdered By: Olivia Castillo on 01-11-2025 Eosinophils/100 WBC (Bld) 0.3 % 0-5 [facility] Erythrocyte distribution wid th ratioOrdered By: Olivia Castillo on 01-11-2025 Erythrocyte distribution width (RBC) [Ratio] 14.6 % 11.6-14.6 [facility] Erythrocyte distribution wid th standard deviationOrdered By: Olivia Castillo on 01-11-2025 Erythrocyte distribution width (RBC) [Ratio] 49.7 fl High 35.1-43.9 [facility] Hematocrit Auto (Bld) [Volum e fraction]Ordered By: Olivia Castillo on 01-11-2025 Hematocrit (Bld) [Volume fraction] 34.6 % Low 37-47 [facility] Hemoglobin measurementOrdere d By: Olivia Castillo on 01-11-2025 Hemoglobin (Bld) [Mass/Vol] 10.9 g/dL Low 12.0-15.0 [facility] Immature granulocytes/100 WB C Auto (Bld)Ordered By: Olivia Castillo on 01-11-2025 Immature granulocytes/100 WBC (Bld) 0.800 % 0.0-0.9 [facility] Comment on above: IG% - Immature Granu locytes (promyelocytes, myelocytes and metamyelocytes) > 1% indicates that a LEFT SHIFT is Present. MCV (mean corpuscular volume ) determinationOrdered By: Olivia Castillo on 01-11-2025 MCV (RBC) [Entitic vol] 93.3 fL 81-99 [facility] Mean corpuscular hemoglobin (MCH) determinationOrdered By: Olivia Castillo on 01-11-2025 MCH (RBC) [Entitic mass] 29.4 pg 27.0-32.0 [facility] Mean corpuscular hemoglobin concentration (MCHC) determinationOrdered By: Olivia Castillo on 01-11-2025 MCHC (RBC) [Mass/Vol] 31.5 g/dL Low 32-36 [facility] Mean platelet volume determi nationOrdered By: Olivia Castillo on 01-11-2025 Platelet mean volume (Bld) [Entitic vol] 9.5 fL 6.2-12.0 [facility] Monocyte percentageOrdered B y: Olivia Kate on 01-11-2025 Monocytes/100 WBC (Bld) 6.7 % 0-10 [facility] Neutrophil percentageOrdered By: Olivia Kate on 01-11-2025 Neutrophils/100 WBC (Bld) 74.9 % High 47-70 [facility] Nucleated red blood cell per centageOrdered By: Olivia Kate on 01-11-2025 Nucleated RBC/100 WBC (Bld) [Ratio] 0 % 0-5 [facility] Oncology Visit Reporton 12-16 Oncology Visit Report Normal [facility] Platelet countOrdered By: Morgan stefanie Jonathan on 01-11-2025 Platelets (Bld) [#/Vol] 287 10*3/uL 150-450 [facility] RBC Auto (Bld) [#/Vol]Ordere d By: Olivia Tejedaadriane on 01-11-2025 RBC (Bld) [#/Vol] 3.71 10*6/uL Low 4.2-5.4 [facility] White blood cell (WBC) count Ordered By: Olivia Tejedaadriane on 01-11-2025 WBC (Bld) [#/Vol] 7.8 10*3/uL 4.4-11.0 [facility] CA 27.29on 12-22-2024 CA 27.29 445.3 U/mL Abnormal 0.0-38.6 [facility] Comment on above: Result Comment: [facility] [employer]posaur Immunochemiluminometric Methodology (ICMA)Values obtained with different assay methods or kits cannotbe used interchangeably. Results cannot be interpreted asabsolute evidence of the presence or absence of malignantdisease.Performed at: - [facility] [id number] Director: Robert Montana PhD, Phone: [phone] Performed By: #### L 7708.0223, Q176.7023, G317.5774 ####[facility] [address] [place], [address] Absolute lymphocyte countOrd ered By: Olivia Jonathan on 12-21-2024 Lymphocytes Auto (Unsp spec) [#/Vol] 0.97 10*3/uL 0.83-4.51 [facility] Absolute neutrophil countOrd ered By: [facility] on 12-21-2024 Neutrophils (Bld) [#/Vol] 4.9 10*3/uL 2.0-7.7 [facility] Anion gap in Serum or Plasma Ordered By: [facility] Cast[facility] on 12-21-2024 Anion gap [Moles/Vol] 11 mmol/L 5-15 [facility] Automated lymphocyte count a s percentage of total leukocytesOrdered By: [facility] on 12-21-2024 Lymphocytes/100 WBC Auto (Unsp spec) 14.5 % Low 19-41 [facility] BUN/creatinine ratioOrdered By: [facility] on 12-21-2024 Urea nitrogen/Creatinine [Mass ratio] 24.1 mg/mg High 10-20 [facility] Basophil percentageOrdered B y: [facility] on 12-21-2024 Basophils/100 WBC (Bld) 0.9 % 0-1 [facility] Bilirubin, totalOrdered By: [facility] on 12-21-2024 Bilirubin [Mass/Vol] 0.30 mg/dL 0.00-1.30 [facility] CA 27.29Ordered By: [facility] on 12-21-2024 CA 27.29 445.3 U/mL High 0.0-38.6 [facility] Comment on above: [employer]aur Immu nochemiluminometric Methodology (ICMA)Values obtained with different assay methods or kits cannotbe used interchangeably. Results cannot be interpreted asabsolute evidence of the presence or absence of malignantdisease.Performed at: - [facility] [id number] Director: Robert Montana PhD, Phone: [phone] CBC W/Diff, Automatedon Absolute Lymph 0.97 X10 3/uL Normal 0.83-4.51 [facility] Comment on above: Performed By: #### L 500.4050, L100.0100 ####[facility] [address] [place], [address] Absolute Neut 4.9 X10 3/uL Normal 2.0-7.7 [facility] Comment on above: Performed By: #### L 500.4050, L100.0100 ####[facility] [address] [place], [address] Basophils/100 WBC (Bld) 0.9 % Normal 0-1 [facility] Comment on above: Performed By: #### L 500.4050, L100.0100 ####[facility] [address] [place], [address] Eosinophils/100 WBC (Bld) 3.1 % Normal 0-5 [facility] Comment on above: Performed By: #### L 500.4050, L100.0100 ####[facility] [address] [place], [address] Erythrocyte distribution width (RBC) [Ratio] 15.5 % High 11.6-14.6 [facility] Comment on above: Performed By: #### L 500.4050, L100.0100 ####[facility] [address] [place], [address] Hematocrit (Bld) [Volume fraction] 35.9 % Low 37-47 [facility] Comment on above: Performed By: #### L 500.4050, L100.0100 ####[facility] [address] [place], [address] Hemoglobin (Bld) [Mass/Vol] 11.1 g/dL Low 12.0-15.0 [facility] Comment on above: Performed By: #### L 500.4050, L100.0100 ####[facility] [address] [place], [address] IG% 0.700 Normal 0.0-0.9 [facility] Comment on above: Result Comment: IG% - Immature Granulocytes (promyelocytes, myelocytes andmetamyelocytes) > 1% indicates that a LEFT SHIFT is Present. Performed By: #### L 500.4050, L100.0100 ####[facility] [address] [place], [address] Lymphocytes/100 WBC (Bld) 14.5 % Low 19-41 [facility] Comment on above: Performed By: #### L 500.4050, L100.0100 ####[facility] [address] [place], [address] MCH (RBC) [Entitic mass] 29.2 pg Normal 27.0-32.0 [facility] Comment on above: Performed By: #### L 500.4050, L100.0100 ####[facility] [address] [place], [address] MCHC (RBC) [Mass/Vol] 30.9 g/dL Low 32-36 [facility] Comment on above: Performed By: #### L 500.4050, L100.0100 ####[facility] [address] [place], [address] MCV (RBC) [Entitic vol] 94.5 fL Normal 81-99 [facility] Comment on above: Performed By: #### L 500.4050, L100.0100 ####[facility] [address] [place], [address] Monocytes/100 WBC (Bld) 6.7 % Normal 0-10 [facility] Comment on above: Performed By: #### L 500.4050, L100.0100 ####[facility] [address] [place], [address] Neutrophils/100 WBC (Bld) 74.1 % High 47-70 [facility] Comment on above: Performed By: #### L 500.4050, L100.0100 ####[facility] [address] [place], [address] Nucleated RBC (Bld) [#/Vol] 0 10*3/uL Normal 0-5 [facility] Comment on above: Performed By: #### L 500.4050, L100.0100 ####[facility] [address] [place], [address] Platelet mean volume (Bld) [Entitic vol] 10.0 fL Normal 6.2-12.0 [facility] Comment on above: Performed By: #### L 500.4050, L100.0100 ####[facility] [address] [place], [address] Platelets (Bld) [#/Vol] 231 10*3/uL Normal 150-450 [facility] Comment on above: Performed By: #### L 500.4050, L100.0100 ####[facility] [address] [place], [address] RBC (Bld) [#/Vol] 3.80 10*6/uL Low 4.2-5.4 [facility] Comment on above: Performed By: #### L 500.4050, L100.0100 ####[facility] [address] [place], [address] RDW SD 54.2 fl High 35.1-43.9 [facility] Comment on above: Performed By: #### L 500.4050, L100.0100 ####[facility] [address] [place], [address] WBC (Bld) [#/Vol] 6.7 10*3/uL Normal 4.4-11.0 [facility] Comment on above: Performed By: #### L 500.4050, L100.0100 ####[facility] [address] [place], [address] Carbon dioxide, total [Moles /volume] in Central venous bloodOrdered By: Olivia Castillo on 12-21-2024 CO2 [Moles/Vol] 21.9 mmol/L 21.0-32.0 [facility] Chloride assayOrdered By: Morgan tracytita Castillo on 12-21-2024 Chloride [Moles/Vol] 110 mmol/L High 98-108 [facility] Comprehensive Metabolic Prof ilon 12-21-2024 Albumin [Mass/Vol] 4.3 g/dL Normal 3.5-5.0 [facility] Comment on above: Performed By: #### L 500.4050, L100.0100 ####[facility] [address] [place], [address] Albumin/Globulin [Mass ratio] 1.9 {ratio} Normal 0.9-2.4 [facility] Comment on above: Performed By: #### L 500.4050, L100.0100 ####[facility] [address] [place], [address] ALK PHOS 246 U/L High 35-104 [facility] Comment on above: Performed By: #### L 500.4050, L100.0100 ####[facility] [address] [place], [address] ALT [Catalytic activity/Vol] 22 U/L Normal <=34 [facility] Comment on above: Performed By: #### L 500.4050, L100.0100 ####[facility] [address] [place], [address] AST [Catalytic activity/Vol] 47 U/L High <=31 [facility] Comment on above: Performed By: #### L 500.4050, L100.0100 ####[facility] [address] [place], [address] Bilirubin [Mass/Vol] 0.30 mg/dL Normal 0.00-1.30 [facility] Comment on above: Performed By: #### L 500.4050, L100.0100 ####[facility] [address] [place], [address] BUN/CRE 24.1 RATIO High 10-20 [facility] Comment on above: Performed By: #### L 500.4050, L100.0100 ####[facility] [address] [place], [address] Calcium [Mass/Vol] 9.1 mg/dL Normal 7.6-11.0 [facility] Comment on above: Performed By: #### L 500.4050, L100.0100 ####[facility] [address] [place], [address] Chloride [Moles/Vol] 110 mmol/L High 98-108 [facility] Comment on above: Performed By: #### L 500.4050, L100.0100 ####[facility] [address] [place], [address] CO2 [Moles/Vol] 21.9 mmol/L Normal 21.0-32.0 [facility] Comment on above: Performed By: #### L 500.4050, L100.0100 ####[facility] [address] [place], [address] Creatinine [Mass/Vol] 0.55 mg/dL Low 0.70-1.20 [facility] Comment on above: Performed By: #### L 500.4050, L100.0100 ####[facility] [address] [place], [address] ECRCL 103.15 ml/min Normal 50-250 [facility] Comment on above: Performed By: #### L 500.4050, L100.0100 ####[facility] [address] [place], [address] GAP 11 Normal 5-15 [facility] Comment on above: Performed By: #### L 500.4050, L100.0100 ####[facility] [address] [place], [address] GFR/1.73 sq M.predicted among non-blacks MDRD (S/P/Bld) [Vol rate/Area] 109 mL/min/{1.73_m2} Normal >60 [facility] Comment on above: Result Comment: mL/m in/1.73m2 CKD-EPI Creatinine Equation (2020) Performed By: #### L 500.4050, L100.0100 ####[facility] [address] [place], [address] Globulin (S) [Mass/Vol] 2.3 g/dL Normal 2.2-4.2 [facility] Comment on above: Performed By: #### L 500.4050, L100.0100 ####[facility] [address] [place], [address] Glucose [Mass/Vol] 87 mg/dL Normal 70-99 [facility] Comment on above: Performed By: #### L 500.4050, L100.0100 ####[facility] [address] [place], [address] Potassium [Moles/Vol] 4.4 mmol/L Normal 3.3-5.1 [facility] Comment on above: Performed By: #### L 500.4050, L100.0100 ####[facility] [address] [place], [address] Sodium [Moles/Vol] 143 mmol/L Normal 133-145 [facility] Comment on above: Performed By: #### L 500.4050, L100.0100 ####[facility] [address] [place], [address] T PROT 6.7 g/dL Normal 5.9-8.4 [facility] Comment on above: Performed By: #### L 500.4050, L100.0100 ####[facility] [address] [place], [place], [id number] Urea nitrogen [Mass/Vol] 13 mg/dL Normal 4-19 [facility] Comment on above: Performed By: #### L 500.4050, L100.0100 ####[facility] [address] [place], [place], [address] Eosinophil percentageOrdered By: Olivia Castillo on 12-21-2024 Eosinophils/100 WBC (Bld) 3.1 % 0-5 [facility] Erythrocyte distribution wid th ratioOrdered By: Olivia Castillo on 12-21-2024 Erythrocyte distribution width (RBC) [Ratio] 15.5 % High 11.6-14.6 [facility] Erythrocyte distribution wid th standard deviationOrdered By: [facility] on 12-21-2024 Erythrocyte distribution width (RBC) [Ratio] 54.2 fl High 35.1-43.9 [facility] Glomerular filtration rate ( GFR) estimation/1.73 sq m using serum, plasma, or whole bOrdered By: Olivia Castillo on 12-21-2024 GFR/1.73 sq M.predicted among non-blacks MDRD (S/P/Bld) [Vol rate/Area] 109 mL/min/{1.73_m2} >60 [facility] Comment on above: mL/min/1.73m2 CKD-EP I Creatinine Equation (2020) Hematocrit Auto (Bld) [Volum e fraction]Ordered By: Olivia Castillo on 12-21-2024 Hematocrit (Bld) [Volume fraction] 35.9 % Low 37-47 [facility] Hemoglobin measurementOrdere d By: Olivia Castillo on 12-21-2024 Hemoglobin (Bld) [Mass/Vol] 11.1 g/dL Low 12.0-15.0 [facility] Immature granulocytes/100 WB C Auto (Bld)Ordered By: Olivia Castillo on 12-21-2024 Immature granulocytes/100 WBC (Bld) 0.700 % 0.0-0.9 [facility] Comment on above: IG% - Immature Granu locytes (promyelocytes, myelocytes and metamyelocytes) > 1% indicates that a LEFT SHIFT is Present. Laboratory - Chemistry and C hemistry - challengeOrdered By: Olivia Castillo on 12-21-2024 AST [Catalytic activity/Vol] 47 U/L High <32 [facility] MCV (mean corpuscular volume ) determinationOrdered By: Olivia Castillo on 12-21-2024 MCV (RBC) [Entitic vol] 94.5 fL 81-99 [facility] Magnesiumon 12-21-2024 Magnesium [Mass/Vol] 1.8 mg/dL Normal 1.5-2.2 [facility] Comment on above: Performed By: #### L 3100.5040, L501.5200, L501.2300 ####[facility] [address] [place], [address] Magnesium measurement (mass/ volume)Ordered By: Olivia Castillo on 12-21-2024 Magnesium (Unsp spec) [Mass/Vol] 1.8 mg/dL 1.5-2.2 [facility] Mean corpuscular hemoglobin (MCH) determinationOrdered By: Olivia Castillo on 12-21-2024 MCH (RBC) [Entitic mass] 29.2 pg 27.0-32.0 [facility] Mean corpuscular hemoglobin concentration (MCHC) determinationOrdered By: Olivia Castillo on 12-21-2024 MCHC (RBC) [Mass/Vol] 30.9 g/dL Low 32-36 [facility] Mean platelet volume determi nationOrdered By: Olivia Castillo on 12-21-2024 Platelet mean volume (Bld) [Entitic vol] 10.0 fL 6.2-12.0 [facility] Monocyte percentageOrdered B y: Olivia Castillo on 12-21-2024 Monocytes/100 WBC (Bld) 6.7 % 0-10 [facility] Neutrophil percentageOrdered By: [facility] on 12-21-2024 Neutrophils/100 WBC (Bld) 74.1 % High 47-70 [facility] Nucleated red blood cell per centageOrdered By: Olivia Castillo on 12-21-2024 Nucleated RBC/100 WBC (Bld) [Ratio] 0 % 0-5 [facility] Oncology Visit Reporton 080 Oncology Visit Report Normal [facility] Phosphoruson 12-21-2024 Phosphate [Mass/Vol] 4.1 mg/dL Normal 2.7-4.5 [facility] Comment on above: Performed By: #### L 3100.5040, L501.5200, L501.2300 ####[facility] [address] [place], [address] Platelet countOrdered By: Morgan Castillo on 12-21-2024 Platelets (Bld) [#/Vol] 231 10*3/uL 150-450 [facility] Potassium measurement (mass/ volume)Ordered By: Olivia Castillo on 12-21-2024 Potassium (Unsp spec) [Mass/Vol] 4.4 mmol/L 3.3-5.1 [facility] RBC Auto (Bld) [#/Vol]Ordere d By: Olivia Castillo on 12-21-2024 RBC (Bld) [#/Vol] 3.80 10*6/uL Low 4.2-5.4 [facility] Serum creatinine measurement (mass/volume)Ordered By: Olivia Castillo on 12-21-2024 Creatinine [Mass/Vol] 0.55 mg/dL Low 0.70-1.20 [facility] Serum globulin measurementOr dered By: Olivia Castillo on 12-21-2024 Globulin (S) [Mass/Vol] 2.3 g/dL 2.2-4.2 [facility] Serum glucose measurement (m ass/volume)Ordered By: Olivia Castillo on 12-21-2024 Glucose [Mass/Vol] 87 mg/dL 70-99 [facility] Serum or plasma alanine real otransferase (ALT) measurementOrdered By: Olivia Castillo on 12-21-2024 ALT [Catalytic activity/Vol] 22 U/L <35 [facility] Serum or plasma albumin alistair urement (mass/volume)Ordered By: Olivia Castillo on 12-21-2024 Albumin [Mass/Vol] 4.3 g/dL 3.5-5.0 [facility] Serum or plasma albumin/glob ulin mass ratioOrdered By: Olivia Castillo on 12-21-2024 Albumin/Globulin [Mass ratio] 1.9 {ratio} 0.9-2.4 [facility] Serum or plasma alkaline jeff sphatase measurementOrdered By: Olivia Castillo on 12-21-2024 ALP [Catalytic activity/Vol] 246 U/L High 35-104 [facility] Serum or plasma calcium alistair urement (mass/volume)Ordered By: Olivia Castillo on 12-21-2024 Calcium [Mass/Vol] 9.1 mg/dL 7.6-11.0 [facility] Serum or plasma urea nitroge n measurement (mass/volume)Ordered By: Olivia Castillo on 12-21-2024 Urea nitrogen [Mass/Vol] 13 mg/dL 4-19 [facility] Sodium levelOrdered By: Gregoria Castillo on 12-21-2024 Sodium [Moles/Vol] 143 mmol/L 133-145 [facility] Total proteinOrdered By: Timothy Castillo on 12-21-2024 Protein [Mass/Vol] 6.7 g/dL 5.9-8.4 [facility] White blood cell (WBC) count Ordered By: Olivia Castillo on 12-21-2024 WBC (Bld) [#/Vol] 6.7 10*3/uL 4.4-11.0 [facility] Bone Scan Whole Bodyon 11-24 Bone Scan Whole Body Normal [facility] Oncology Visit Reporton Oncology Visit Report Normal [facility] CT Chest, Abd, Pel w/Contras ton 11-20-2024 CT Chest, Abd, Pel w/Contrast Normal [facility] Absolute lymphocyte countOrd ered By: Olivia Castillo on 11-16-2024 Lymphocytes Auto (Unsp spec) [#/Vol] 1.16 10*3/uL 0.83-4.51 [facility] Absolute neutrophil countOrd ered By: Olivia Castillo on 11-16-2024 Neutrophils (Bld) [#/Vol] 6.5 10*3/uL 2.0-7.7 [facility] Anion gap in Serum or Plasma Ordered By: Gregoriatita Castillo on 11-16-2024 Anion gap [Moles/Vol] 10 mmol/L 5-15 [facility] Automated lymphocyte count a s percentage of total leukocytesOrdered By: Gregoriatita Castillo on 11-16-2024 Lymphocytes/100 WBC Auto (Unsp spec) 13.9 % Low 19-41 [facility] BUN/creatinine ratioOrdered By: [facility] Jonathan on 11-16-2024 Urea nitrogen/Creatinine [Mass ratio] 30.1 mg/mg High 10-20 [facility] Basophil percentageOrdered B y: Olivia Castillo on 11-16-2024 Basophils/100 WBC (Bld) 0.6 % 0-1 [facility] Bilirubin, totalOrdered By: [facility] Jonathan on 11-16-2024 Bilirubin [Mass/Vol] 0.27 mg/dL 0.00-1.30 [facility] CBC W/Diff, Automatedon Absolute Lymph 1.16 X10 3/uL Normal 0.83-4.51 [facility] Comment on above: Performed By: #### L 100.0100, L500.4050, L501.5200 ####[facility] [address] [place], [address] Absolute Neut 6.5 X10 3/uL Normal 2.0-7.7 [facility] Comment on above: Performed By: #### L 100.0100, L500.4050, L501.5200 ####[facility] [address] [place], [address] Basophils/100 WBC (Bld) 0.6 % Normal 0-1 [facility] Comment on above: Performed By: #### L 100.0100, L500.4050, L501.5200 ####[facility] [address] [place], [address] Eosinophils/100 WBC (Bld) 2.2 % Normal 0-5 [facility] Comment on above: Performed By: #### L 100.0100, L500.4050, L501.5200 ####[facility] [address] [place], [address] Erythrocyte distribution width (RBC) [Ratio] 16.7 % High 11.6-14.6 [facility] Comment on above: Performed By: #### L 100.0100, L500.4050, L501.5200 ####[facility] [address] [place], [address] Hematocrit (Bld) [Volume fraction] 30.0 % Low 37-47 [facility] Comment on above: Performed By: #### L 100.0100, L500.4050, L501.5200 ####[facility] [address] [place], [address] Hemoglobin (Bld) [Mass/Vol] 9.6 g/dL Low 12.0-15.0 [facility] Comment on above: Performed By: #### L 100.0100, L500.4050, L501.5200 ####[facility] [address] [place], [address] IG% 1.100 High 0.0-0.9 [facility] Comment on above: Result Comment: IG% - Immature Granulocytes (promyelocytes, myelocytes andmetamyelocytes) > 1% indicates that a LEFT SHIFT is Present. Performed By: #### L 100.0100, L500.4050, L501.5200 ####[facility] [address] [place], [address] Lymphocytes/100 WBC (Bld) 13.9 % Low 19-41 [facility] Comment on above: Performed By: #### L 100.0100, L500.4050, L501.5200 ####[facility] [address] [place], [address] MCH (RBC) [Entitic mass] 28.4 pg Normal 27.0-32.0 [facility] Comment on above: Performed By: #### L 100.0100, L500.4050, L501.5200 ####[facility] [address] [place], [address] MCHC (RBC) [Mass/Vol] 32.0 g/dL Normal 32-36 [facility] Comment on above: Performed By: #### L 100.0100, L500.4050, L501.5200 ####[facility] [address] [place], [address] MCV (RBC) [Entitic vol] 88.8 fL Normal 81-99 [facility] Comment on above: Performed By: #### L 100.0100, L500.4050, L501.5200 ####[facility] [address] [place], [address] Monocytes/100 WBC (Bld) 4.8 % Normal 0-10 [facility] Comment on above: Performed By: #### L 100.0100, L500.4050, L501.5200 ####[facility] [address] [place], [address] Neutrophils/100 WBC (Bld) 77.4 % High 47-70 [facility] Comment on above: Performed By: #### L 100.0100, L500.4050, L501.5200 ####[facility] [address] [place], [address] Nucleated RBC (Bld) [#/Vol] 0 10*3/uL Normal 0-5 [facility] Comment on above: Performed By: #### L 100.0100, L500.4050, L501.5200 ####[facility] [address] [place], [address] Platelet mean volume (Bld) [Entitic vol] 9.7 fL Normal 6.2-12.0 [facility] Comment on above: Performed By: #### L 100.0100, L500.4050, L501.5200 ####[facility] [address] [place], [address] Platelets (Bld) [#/Vol] 262 10*3/uL Normal 150-450 [facility] Comment on above: Performed By: #### L 100.0100, L500.4050, L501.5200 ####[facility] [address] [place], [address] RBC (Bld) [#/Vol] 3.38 10*6/uL Low 4.2-5.4 [facility] Comment on above: Performed By: #### L 100.0100, L500.4050, L501.5200 ####[facility] [address] [place], [address] RDW SD 54.4 fl High 35.1-43.9 [facility] Comment on above: Performed By: #### L 100.0100, L500.4050, L501.5200 ####[facility] [address] [place], [address] WBC (Bld) [#/Vol] 8.3 10*3/uL Normal 4.4-11.0 [facility] Comment on above: Performed By: #### L 100.0100, L500.4050, L501.5200 ####[facility] [address] [place], [address] Carbon dioxide, total [Moles /volume] in Central venous bloodOrdered By: Olivia Castillo on 11-16-2024 CO2 [Moles/Vol] 22.5 mmol/L 21.0-32.0 [facility] Chloride assayOrdered By: Morgan Castillo on 11-16-2024 Chloride [Moles/Vol] 109 mmol/L High 98-108 [facility] Comprehensive Metabolic Prof ilon 11-16-2024 Albumin [Mass/Vol] 4.1 g/dL Normal 3.5-5.0 [facility] Comment on above: Order Comment: Comme nts: ONLY DRAW IF PATIENT HAD DIARRHEA IN PAST 7 DAYSONLY DRAW IF PATIENT HAD DIARRHEA IN PAST 7 DAYS Performed By: #### L 100.0100, L500.4050, L501.5200 ####[facility] [address] [facility] [address] Albumin/Globulin [Mass ratio] 1.8 {ratio} Normal 0.9-2.4 [facility] Comment on above: Order Comment: Comme nts: ONLY DRAW IF PATIENT HAD DIARRHEA IN PAST 7 DAYSONLY DRAW IF PATIENT HAD DIARRHEA IN PAST 7 DAYS Performed By: #### L 100.0100, L500.4050, L501.5200 ####[facility] [address] [facility] [address] ALK PHOS 189 U/L High 35-104 [facility] Comment on above: Order Comment: Comme nts: ONLY DRAW IF PATIENT HAD DIARRHEA IN PAST 7 DAYSONLY DRAW IF PATIENT HAD DIARRHEA IN PAST 7 DAYS Performed By: #### L 100.0100, L500.4050, L501.5200 ####[facility] [address] [facility] [address] ALT [Catalytic activity/Vol] 15 U/L Normal <=34 [facility] Comment on above: Order Comment: Comme nts: ONLY DRAW IF PATIENT HAD DIARRHEA IN PAST 7 DAYSONLY DRAW IF PATIENT HAD DIARRHEA IN PAST 7 DAYS Performed By: #### L 100.0100, L500.4050, L501.5200 ####[facility] [address] [facility] [address] AST [Catalytic activity/Vol] 25 U/L Normal <=31 [facility] Comment on above: Order Comment: Comme nts: ONLY DRAW IF PATIENT HAD DIARRHEA IN PAST 7 DAYSONLY DRAW IF PATIENT HAD DIARRHEA IN PAST 7 DAYS Performed By: #### L 100.0100, L500.4050, L501.5200 ####[facility] [address] [place], [address] Bilirubin [Mass/Vol] 0.27 mg/dL Normal 0.00-1.30 [facility] Comment on above: Order Comment: Comme nts: ONLY DRAW IF PATIENT HAD DIARRHEA IN PAST 7 DAYSONLY DRAW IF PATIENT HAD DIARRHEA IN PAST 7 DAYS Performed By: #### L 100.0100, L500.4050, L501.5200 ####[facility] [address] [place], [address] BUN/CRE 30.1 RATIO High 10-20 [facility] Comment on above: Order Comment: Comme nts: ONLY DRAW IF PATIENT HAD DIARRHEA IN PAST 7 DAYSONLY DRAW IF PATIENT HAD DIARRHEA IN PAST 7 DAYS Performed By: #### L 100.0100, L500.4050, L501.5200 ####[facility] [address] [place], [address] Calcium [Mass/Vol] 8.9 mg/dL Normal 7.6-11.0 [facility] Comment on above: Order Comment: Comme nts: ONLY DRAW IF PATIENT HAD DIARRHEA IN PAST 7 DAYSONLY DRAW IF PATIENT HAD DIARRHEA IN PAST 7 DAYS Performed By: #### L 100.0100, L500.4050, L501.5200 ####[facility] [address] [place], [address] Chloride [Moles/Vol] 109 mmol/L High 98-108 [facility] Comment on above: Order Comment: Comme nts: ONLY DRAW IF PATIENT HAD DIARRHEA IN PAST 7 DAYSONLY DRAW IF PATIENT HAD DIARRHEA IN PAST 7 DAYS Performed By: #### L 100.0100, L500.4050, L501.5200 ####[facility] [address] [place], [address] CO2 [Moles/Vol] 22.5 mmol/L Normal 21.0-32.0 [facility] Comment on above: Order Comment: Comme nts: ONLY DRAW IF PATIENT HAD DIARRHEA IN PAST 7 DAYSONLY DRAW IF PATIENT HAD DIARRHEA IN PAST 7 DAYS Performed By: #### L 100.0100, L500.4050, L501.5200 ####[facility] [address] [place], [address] Creatinine [Mass/Vol] 0.48 mg/dL Low 0.70-1.20 [facility] Comment on above: Order Comment: Comme nts: ONLY DRAW IF PATIENT HAD DIARRHEA IN PAST 7 DAYSONLY DRAW IF PATIENT HAD DIARRHEA IN PAST 7 DAYS Performed By: #### L 100.0100, L500.4050, L501.5200 ####[facility] [address] [place], [place], [phone] ECRCL 116.45 ml/min Normal 50-250 [facility] Comment on above: Order Comment: Comme nts: ONLY DRAW IF PATIENT HAD DIARRHEA IN PAST 7 DAYSONLY DRAW IF PATIENT HAD DIARRHEA IN PAST 7 DAYS Performed By: #### L 100.0100, L500.4050, L501.5200 ####[facility] [address] [place], [address] GAP 10 Normal 5-15 [facility] Comment on above: Order Comment: Comme nts: ONLY DRAW IF PATIENT HAD DIARRHEA IN PAST 7 DAYSONLY DRAW IF PATIENT HAD DIARRHEA IN PAST 7 DAYS Performed By: #### L 100.0100, L500.4050, L501.5200 ####[facility] [address] [place], [address] GFR/1.73 sq M.predicted among non-blacks MDRD (S/P/Bld) [Vol rate/Area] 112 mL/min/{1.73_m2} Normal >60 [facility] Comment on above: Order Comment: Comme nts: ONLY DRAW IF PATIENT HAD DIARRHEA IN PAST 7 DAYSONLY DRAW IF PATIENT HAD DIARRHEA IN PAST 7 DAYS Result Comment: mL/m in/1.73m2 CKD-EPI Creatinine Equation (2020) Performed By: #### L 100.0100, L500.4050, L501.5200 ####[facility] [address] [place], [address] Globulin (S) [Mass/Vol] 2.2 g/dL Normal 2.2-4.2 [facility] Comment on above: Order Comment: Comme nts: ONLY DRAW IF PATIENT HAD DIARRHEA IN PAST 7 DAYSONLY DRAW IF PATIENT HAD DIARRHEA IN PAST 7 DAYS Performed By: #### L 100.0100, L500.4050, L501.5200 ####[facility] [address] [place], [address] Glucose [Mass/Vol] 92 mg/dL Normal 70-99 [facility] Comment on above: Order Comment: Comme nts: ONLY DRAW IF PATIENT HAD DIARRHEA IN PAST 7 DAYSONLY DRAW IF PATIENT HAD DIARRHEA IN PAST 7 DAYS Performed By: #### L 100.0100, L500.4050, L501.5200 ####[facility] [address] [place], [address] Potassium [Moles/Vol] 3.9 mmol/L Normal 3.3-5.1 [facility] Comment on above: Order Comment: Comme nts: ONLY DRAW IF PATIENT HAD DIARRHEA IN PAST 7 DAYSONLY DRAW IF PATIENT HAD DIARRHEA IN PAST 7 DAYS Performed By: #### L 100.0100, L500.4050, L501.5200 ####[facility] [address] [place], [address] Sodium [Moles/Vol] 141 mmol/L Normal 133-145 [facility] Comment on above: Order Comment: Comme nts: ONLY DRAW IF PATIENT HAD DIARRHEA IN PAST 7 DAYSONLY DRAW IF PATIENT HAD DIARRHEA IN PAST 7 DAYS Performed By: #### L 100.0100, L500.4050, L501.5200 ####[facility] [address] [place], [place], [id number] T PROT 6.4 g/dL Normal 5.9-8.4 [facility] Comment on above: Order Comment: Comme nts: ONLY DRAW IF PATIENT HAD DIARRHEA IN PAST 7 DAYSONLY DRAW IF PATIENT HAD DIARRHEA IN PAST 7 DAYS Performed By: #### L 100.0100, L500.4050, L501.5200 ####[facility] [address] [place], [place], [id number] Urea nitrogen [Mass/Vol] 15 mg/dL Normal 4-19 [facility] Comment on above: Order Comment: Comme nts: ONLY DRAW IF PATIENT HAD DIARRHEA IN PAST 7 DAYSONLY DRAW IF PATIENT HAD DIARRHEA IN PAST 7 DAYS Performed By: #### L 100.0100, L500.4050, L501.5200 ####[facility] [address] [place], [place], [id number] Eosinophil percentageOrdered By: Olivia Castillo on 11-16-2024 Eosinophils/100 WBC (Bld) 2.2 % 0-5 [facility] Erythrocyte distribution wid th ratioOrdered By: Olivia Castillo on 11-16-2024 Erythrocyte distribution width (RBC) [Ratio] 16.7 % High 11.6-14.6 [facility] Erythrocyte distribution wid th standard deviationOrdered By: Olivia Castillo on 11-16-2024 Erythrocyte distribution width (RBC) [Ratio] 54.4 fl High 35.1-43.9 [facility] Glomerular filtration rate ( GFR) estimation/1.73 sq m using serum, plasma, or whole bOrdered By: Olivia Castillo on 11-16-2024 GFR/1.73 sq M.predicted among non-blacks MDRD (S/P/Bld) [Vol rate/Area] 112 mL/min/{1.73_m2} >60 [facility] Comment on above: mL/min/1.73m2 CKD-EP I Creatinine Equation (2020) Hematocrit Auto (Bld) [Volum e fraction]Ordered By: Olivia Castillo on 11-16-2024 Hematocrit (Bld) [Volume fraction] 30.0 % Low 37-47 [facility] Hemoglobin measurementOrdere d By: Olivia Castillo on 11-16-2024 Hemoglobin (Bld) [Mass/Vol] 9.6 g/dL Low 12.0-15.0 [facility] Immature granulocytes/100 WB C Auto (Bld)Ordered By: Olivia Castillo on 11-16-2024 Immature granulocytes/100 WBC (Bld) 1.100 % High 0.0-0.9 [facility] Comment on above: IG% - Immature Granu locytes (promyelocytes, myelocytes and metamyelocytes) > 1% indicates that a LEFT SHIFT is Present. Laboratory - Chemistry and C hemistry - challengeOrdered By: Olivia Castillo on 11-16-2024 AST [Catalytic activity/Vol] 25 U/L <32 [facility] MCV (mean corpuscular volume ) determinationOrdered By: [facility] on 11-16-2024 MCV (RBC) [Entitic vol] 88.8 fL 81-99 [facility] Magnesiumon 11-16-2024 Magnesium [Mass/Vol] 2.0 mg/dL Normal 1.5-2.2 [facility] Comment on above: Order Comment: Comme nts: ONLY DRAW IF PATIENT HAD DIARRHEA IN PAST 7 DAYS Performed By: #### L 100.0100, L500.4050, L501.5200 ####[facility] [address] [place], [place], [id number] Magnesium measurement (mass/ volume)Ordered By: Olivia Castillo on 11-16-2024 Magnesium (Unsp spec) [Mass/Vol] 2.0 mg/dL 1.5-2.2 [facility] Mean corpuscular hemoglobin (MCH) determinationOrdered By: Olivia Castillo on 11-16-2024 MCH (RBC) [Entitic mass] 28.4 pg 27.0-32.0 [facility] Mean corpuscular hemoglobin concentration (MCHC) determinationOrdered By: Olivia Castillo on 11-16-2024 MCHC (RBC) [Mass/Vol] 32.0 g/dL 32-36 [facility] Mean platelet volume determi nationOrdered By: Olivia Castillo on 11-16-2024 Platelet mean volume (Bld) [Entitic vol] 9.7 fL 6.2-12.0 [facility] Monocyte percentageOrdered B y: Olivia Castillo on 11-16-2024 Monocytes/100 WBC (Bld) 4.8 % 0-10 [facility] Neutrophil percentageOrdered By: Olivia Castillo on 11-16-2024 Neutrophils/100 WBC (Bld) 77.4 % High 47-70 [facility] Nucleated red blood cell per centageOrdered By: Olivia Castillo on 11-16-2024 Nucleated RBC/100 WBC (Bld) [Ratio] 0 % 0-5 [facility] Oncology Visit Reporton 07 Oncology Visit Report Normal [facility] Platelet countOrdered By: Morgan Castillo on 11-16-2024 Platelets (Bld) [#/Vol] 262 10*3/uL 150-450 [facility] Potassium measurement (mass/ volume)Ordered By: Olivia Castillo on 11-16-2024 Potassium (Unsp spec) [Mass/Vol] 3.9 mmol/L 3.3-5.1 [facility] RBC Auto (Bld) [#/Vol]Ordere d By: Olivia Castillo on 11-16-2024 RBC (Bld) [#/Vol] 3.38 10*6/uL Low 4.2-5.4 [facility] Serum creatinine measurement (mass/volume)Ordered By: Olivia Castillo on 11-16-2024 Creatinine [Mass/Vol] 0.48 mg/dL Low 0.70-1.20 [facility] Serum globulin measurementOr dered By: Olivia Castillo on 11-16-2024 Globulin (S) [Mass/Vol] 2.2 g/dL 2.2-4.2 [facility] Serum glucose measurement (m ass/volume)Ordered By: Olivia Castillo on 11-16-2024 Glucose [Mass/Vol] 92 mg/dL 70-99 [facility] Serum or plasma alanine real otransferase (ALT) measurementOrdered By: Olivia Castillo on 11-16-2024 ALT [Catalytic activity/Vol] 15 U/L <35 [facility] Serum or plasma albumin alistair urement (mass/volume)Ordered By: Olivia Castillo on 11-16-2024 Albumin [Mass/Vol] 4.1 g/dL 3.5-5.0 [facility] Serum or plasma albumin/glob ulin mass ratioOrdered By: Olivia Castillo on 11-16-2024 Albumin/Globulin [Mass ratio] 1.8 {ratio} 0.9-2.4 [facility] Serum or plasma alkaline jeff sphatase measurementOrdered By: Olivia Castillo on 11-16-2024 ALP [Catalytic activity/Vol] 189 U/L High 35-104 [facility] Serum or plasma calcium alistair urement (mass/volume)Ordered By: Olivia Castillo on 11-16-2024 Calcium [Mass/Vol] 8.9 mg/dL 7.6-11.0 [facility] Serum or plasma urea nitroge n measurement (mass/volume)Ordered By: Olivia Castillo on 11-16-2024 Urea nitrogen [Mass/Vol] 15 mg/dL 4-19 [facility] Sodium levelOrdered By: Gregoria Castillo on 11-16-2024 Sodium [Moles/Vol] 141 mmol/L 133-145 [facility] Total proteinOrdered By: Timothy Castillo on 11-16-2024 Protein [Mass/Vol] 6.4 g/dL 5.9-8.4 [facility] White blood cell (WBC) count Ordered By: Olivia Castillo on 11-16-2024 WBC (Bld) [#/Vol] 8.3 10*3/uL 4.4-11.0 [facility] Absolute lymphocyte countOrd ered By: Olivia Castillo on 11-09-2024 Lymphocytes Auto (Unsp spec) [#/Vol] 1.40 10*3/uL 0.83-4.51 [facility] Absolute neutrophil countOrd ered By: Olivia Castillo on 11-09-2024 Neutrophils (Bld) [#/Vol] 11.1 10*3/uL High 2.0-7.7 [facility] Anion gap in Serum or Plasma Ordered By: Gregoriatita Castillo on 11-09-2024 Anion gap [Moles/Vol] 12 mmol/L 5-15 [facility] Automated lymphocyte count a s percentage of total leukocytesOrdered By: [facility] on 11-09-2024 Lymphocytes/100 WBC Auto (Unsp spec) 10.4 % Low 19-41 [facility] BUN/creatinine ratioOrdered By: [facility] Jonathan on 11-09-2024 Urea nitrogen/Creatinine [Mass ratio] 19.3 mg/mg 10-20 [facility] Basophil percentageOrdered B y: [facility] on 11-09-2024 Basophils/100 WBC (Bld) 0.7 % 0-1 [facility] Bilirubin, totalOrdered By: [facility] on 11-09-2024 Bilirubin [Mass/Vol] 0.27 mg/dL 0.00-1.30 [facility] CBC W/Diff, Automatedon 10-16 Absolute Lymph 1.40 X10 3/uL Normal 0.83-4.51 [facility] Comment on above: Performed By: #### L 500.4050, L100.0100 ####[facility] [address] [place], [address] Absolute Neut 11.1 X10 3/uL High 2.0-7.7 [facility] Comment on above: Performed By: #### L 500.4050, L100.0100 ####[facility] [address] [place], [address] Basophils/100 WBC (Bld) 0.7 % Normal 0-1 [facility] Comment on above: Performed By: #### L 500.4050, L100.0100 ####[facility] [address] [place], [address] Eosinophils/100 WBC (Bld) 1.1 % Normal 0-5 [facility] Comment on above: Performed By: #### L 500.4050, L100.0100 ####[facility] [address] [place] [facility], [address] Erythrocyte distribution width (RBC) [Ratio] 17.3 % High 11.6-14.6 [facility] Comment on above: Performed By: #### L 500.4050, L100.0100 ####[facility] [address] [place], [address] Hematocrit (Bld) [Volume fraction] 32.4 % Low 37-47 [facility] Comment on above: Performed By: #### L 500.4050, L100.0100 ####[facility] [address] [place], [address] Hemoglobin (Bld) [Mass/Vol] 10.0 g/dL Low 12.0-15.0 [facility] Comment on above: Performed By: #### L 500.4050, L100.0100 ####[facility] [address] [place], [address] IG% 1.100 High 0.0-0.9 [facility] Comment on above: Result Comment: IG% - Immature Granulocytes (promyelocytes, myelocytes andmetamyelocytes) > 1% indicates that a LEFT SHIFT is Present. Performed By: #### L 500.4050, L100.0100 ####[facility] [address] [place], [address] Lymphocytes/100 WBC (Bld) 10.4 % Low 19-41 [facility] Comment on above: Performed By: #### L 500.4050, L100.0100 ####[facility] [address] [place], [address] MCH (RBC) [Entitic mass] 27.9 pg Normal 27.0-32.0 [facility] Comment on above: Performed By: #### L 500.4050, L100.0100 ####[facility] [address] [place], [address] MCHC (RBC) [Mass/Vol] 30.9 g/dL Low 32-36 [facility] Comment on above: Performed By: #### L 500.4050, L100.0100 ####[facility] [address] [place], [address] MCV (RBC) [Entitic vol] 90.3 fL Normal 81-99 [facility] Comment on above: Performed By: #### L 500.4050, L100.0100 ####[facility] [address] [place], [address] Monocytes/100 WBC (Bld) 3.7 % Normal 0-10 [facility] Comment on above: Performed By: #### L 500.4050, L100.0100 ####[facility] [address] [place], [address] Neutrophils/100 WBC (Bld) 83.0 % High 47-70 [facility] Comment on above: Performed By: #### L 500.4050, L100.0100 ####[facility] [address] [place], [address] Nucleated RBC (Bld) [#/Vol] 0 10*3/uL Normal 0-5 [facility] Comment on above: Performed By: #### L 500.4050, L100.0100 ####[facility] [address] [place], [address] Platelet mean volume (Bld) [Entitic vol] 9.9 fL Normal 6.2-12.0 [facility] Comment on above: Performed By: #### L 500.4050, L100.0100 ####[facility] [address] [place], [address] Platelets (Bld) [#/Vol] 303 10*3/uL Normal 150-450 [facility] Comment on above: Performed By: #### L 500.4050, L100.0100 ####[facility] [address] [place], [address] RBC (Bld) [#/Vol] 3.59 10*6/uL Low 4.2-5.4 [facility] Comment on above: Performed By: #### L 500.4050, L100.0100 ####[facility] [address] [place], [address] RDW SD 57.3 fl High 35.1-43.9 [facility] Comment on above: Performed By: #### L 500.4050, L100.0100 ####[facility] [address] [place], [address] WBC (Bld) [#/Vol] 13.4 10*3/uL High 4.4-11.0 [facility] Comment on above: Performed By: #### L 500.4050, L100.0100 ####[facility] [address] [place], [address] Carbon dioxide, total [Moles /volume] in Central venous bloodOrdered By: Olivia Castillo on 11-09-2024 CO2 [Moles/Vol] 20.9 mmol/L Low 21.0-32.0 [facility] Chloride assayOrdered By: Morgan Castillo on 11-09-2024 Chloride [Moles/Vol] 112 mmol/L High 98-108 [facility] Comprehensive Metabolic Prof ilon 11-09-2024 Albumin [Mass/Vol] 4.4 g/dL Normal 3.5-5.0 [facility] Comment on above: Performed By: #### L 500.4050, L100.0100 ####[facility] [address] [place], [address] Albumin/Globulin [Mass ratio] 2.0 {ratio} Normal 0.9-2.4 [facility] Comment on above: Performed By: #### L 500.4050, L100.0100 ####[facility] [address] [place], [address] ALK PHOS 238 U/L High 35-104 [facility] Comment on above: Performed By: #### L 500.4050, L100.0100 ####[facility] [address] [place], [address] ALT [Catalytic activity/Vol] 14 U/L Normal <=34 [facility] Comment on above: Performed By: #### L 500.4050, L100.0100 ####[facility] [address] [place], [address] AST [Catalytic activity/Vol] 27 U/L Normal <=31 [facility] Comment on above: Performed By: #### L 500.4050, L100.0100 ####[facility] [address] [place], [address] Bilirubin [Mass/Vol] 0.27 mg/dL Normal 0.00-1.30 [facility] Comment on above: Performed By: #### L 500.4050, L100.0100 ####[facility] [address] [place], [address] BUN/CRE 19.3 RATIO Normal 10-20 [facility] Comment on above: Performed By: #### L 500.4050, L100.0100 ####[facility] [address] [place], [address] Calcium [Mass/Vol] 9.3 mg/dL Normal 7.6-11.0 [facility] Comment on above: Performed By: #### L 500.4050, L100.0100 ####[facility] [address] [place], [address] Chloride [Moles/Vol] 112 mmol/L High 98-108 [facility] Comment on above: Performed By: #### L 500.4050, L100.0100 ####[facility] [address] [place], [address] CO2 [Moles/Vol] 20.9 mmol/L Low 21.0-32.0 [facility] Comment on above: Performed By: #### L 500.4050, L100.0100 ####[facility] [address] [place], [address] Creatinine [Mass/Vol] 0.58 mg/dL Low 0.70-1.20 [facility] Comment on above: Performed By: #### L 500.4050, L100.0100 ####[facility] [address] [place], [address] ECRCL 96.37 ml/min Normal 50-250 [facility] Comment on above: Performed By: #### L 500.4050, L100.0100 ####[facility] [address] [place], [address] GAP 12 Normal 5-15 [facility] Comment on above: Performed By: #### L 500.4050, L100.0100 ####[facility] [address] [place], [address] GFR/1.73 sq M.predicted among non-blacks MDRD (S/P/Bld) [Vol rate/Area] 108 mL/min/{1.73_m2} Normal >60 [facility] Comment on above: Result Comment: mL/m in/1.73m2 CKD-EPI Creatinine Equation (2020) Performed By: #### L 500.4050, L100.0100 ####[facility] [address] [place], [address] Globulin (S) [Mass/Vol] 2.2 g/dL Normal 2.2-4.2 [facility] Comment on above: Performed By: #### L 500.4050, L100.0100 ####[facility] [address] [place], [address] Glucose [Mass/Vol] 91 mg/dL Normal 70-99 [facility] Comment on above: Performed By: #### L 500.4050, L100.0100 ####[facility] [address] [place], [address] Potassium [Moles/Vol] 4.0 mmol/L Normal 3.3-5.1 [facility] Comment on above: Performed By: #### L 500.4050, L100.0100 ####[facility] [address] [place], [address] Sodium [Moles/Vol] 145 mmol/L Normal 133-145 [facility] Comment on above: Performed By: #### L 500.4050, L100.0100 ####[facility] [address] [place], [address] T PROT 6.6 g/dL Normal 5.9-8.4 [facility] Comment on above: Performed By: #### L 500.4050, L100.0100 ####[facility] [address] [place], [address] Urea nitrogen [Mass/Vol] 11 mg/dL Normal 4-19 [facility] Comment on above: Performed By: #### L 500.4050, L100.0100 ####[facility] [address] [place], [address] Eosinophil percentageOrdered By: Olivia Castillo on 11-09-2024 Eosinophils/100 WBC (Bld) 1.1 % 0-5 [facility] Erythrocyte distribution wid th ratioOrdered By: Olivia Castillo on 11-09-2024 Erythrocyte distribution width (RBC) [Ratio] 17.3 % High 11.6-14.6 [facility] Erythrocyte distribution wid th standard deviationOrdered By: Olivia Castillo on 11-09-2024 Erythrocyte distribution width (RBC) [Ratio] 57.3 fl High 35.1-43.9 [facility] Ferritinon 11-09-2024 Ferritin [Mass/Vol] 399 ng/mL High 22-378 [facility] Comment on above: Performed By: #### L 503.6030, L503.0106, L503.6550 ####[facility] [address] [place], [place], [address] Glomerular filtration rate ( GFR) estimation/1.73 sq m using serum, plasma, or whole bOrdered By: Olivia Castillo on 11-09-2024 GFR/1.73 sq M.predicted among non-blacks MDRD (S/P/Bld) [Vol rate/Area] 108 mL/min/{1.73_m2} >60 [facility] Comment on above: mL/min/1.73m2 CKD-EP I Creatinine Equation (2020) Hematocrit Auto (Bld) [Volum e fraction]Ordered By: Olivia Castillo on 11-09-2024 Hematocrit (Bld) [Volume fraction] 32.4 % Low 37-47 [facility] Hemoglobin measurementOrdere d By: Olivia Castillo on 11-09-2024 Hemoglobin (Bld) [Mass/Vol] 10.0 g/dL Low 12.0-15.0 [facility] Immature granulocytes/100 WB C Auto (Bld)Ordered By: Olivia Castillo on 11-09-2024 Immature granulocytes/100 WBC (Bld) 1.100 % High 0.0-0.9 [facility] Comment on above: IG% - Immature Granu locytes (promyelocytes, myelocytes and metamyelocytes) > 1% indicates that a LEFT SHIFT is Present. Iron measurement (mass/mass) Ordered By: Neha Luciano on 11-09-2024 Iron (Unsp spec) [Mass/Mass] 46 ug/dL Low 50-170 [facility] Iron+Iron Binding Capacityon 11-09-2024 Iron [Mass/Vol] 46 ug/dL Low 50-170 [facility] Comment on above: Performed By: #### L 503.6030, L503.0106, L503.6550 ####[facility] [address] [place], [address] IRON SATURATION 15.0 Normal 13-59 [facility] Comment on above: Performed By: #### L 503.6030, L503.0106, L503.6550 ####[facility] [address] [place], [address] TIBC 299 ug/dL Normal 250-450 [facility] Comment on above: Performed By: #### L 503.6030, L503.0106, L503.6550 ####[facility] [address] [place], [address] UIBC 253 ug/dL Normal 228-428 [facility] Comment on above: Performed By: #### L 503.6030, L503.0106, L503.6550 ####[facility] [address] [place], [address] Laboratory - Chemistry and C hemistry - challengeOrdered By: Olivia Castillo on 11-09-2024 AST [Catalytic activity/Vol] 27 U/L <32 [facility] MCV (mean corpuscular volume ) determinationOrdered By: Olivia Castillo on 11-09-2024 MCV (RBC) [Entitic vol] 90.3 fL 81-99 [facility] Mean corpuscular hemoglobin (MCH) determinationOrdered By: Olivia Castillo on 11-09-2024 MCH (RBC) [Entitic mass] 27.9 pg 27.0-32.0 [facility] Mean corpuscular hemoglobin concentration (MCHC) determinationOrdered By: Olivia Castillo on 11-09-2024 MCHC (RBC) [Mass/Vol] 30.9 g/dL Low 32-36 [facility] Mean platelet volume determi nationOrdered By: Olivia Castillo on 11-09-2024 Platelet mean volume (Bld) [Entitic vol] 9.9 fL 6.2-12.0 [facility] Monocyte percentageOrdered B y: Olivia Castillo on 11-09-2024 Monocytes/100 WBC (Bld) 3.7 % 0-10 [facility] Neutrophil percentageOrdered By: Olivia Castillo on 11-09-2024 Neutrophils/100 WBC (Bld) 83.0 % High 47-70 [facility] No Panel InformationOrdered By: Neha Luciano on 11-09-2024 Unsaturated Iron Binding Capacity 253 ug/dL 228-428 [facility] Nucleated red blood cell per centageOrdered By: Olivia Castillo on 11-09-2024 Nucleated RBC/100 WBC (Bld) [Ratio] 0 % 0-5 [facility] Oncology Visit Reporton 10-16 Oncology Visit Report Normal [facility] Platelet countOrdered By: Morgan Castillo on 11-09-2024 Platelets (Bld) [#/Vol] 303 10*3/uL 150-450 [facility] Potassium measurement (mass/ volume)Ordered By: Olivia Castillo on 11-09-2024 Potassium (Unsp spec) [Mass/Vol] 4.0 mmol/L 3.3-5.1 [facility] RBC Auto (Bld) [#/Vol]Ordere d By: Olivia Castillo on 11-09-2024 RBC (Bld) [#/Vol] 3.59 10*6/uL Low 4.2-5.4 [facility] Serum creatinine measurement (mass/volume)Ordered By: Olivia Castillo on 11-09-2024 Creatinine [Mass/Vol] 0.58 mg/dL Low 0.70-1.20 [facility] Serum globulin measurementOr dered By: Olivia Castillo on 11-09-2024 Globulin (S) [Mass/Vol] 2.2 g/dL 2.2-4.2 [facility] Serum glucose measurement (m ass/volume)Ordered By: Olivia Castillo on 11-09-2024 Glucose [Mass/Vol] 91 mg/dL 70-99 [facility] Serum or plasma alanine real otransferase (ALT) measurementOrdered By: Olivia Castillo on 11-09-2024 ALT [Catalytic activity/Vol] 14 U/L <35 [facility] Serum or plasma albumin alistair urement (mass/volume)Ordered By: Olivia Castillo on 11-09-2024 Albumin [Mass/Vol] 4.4 g/dL 3.5-5.0 [facility] Serum or plasma albumin/glob ulin mass ratioOrdered By: Olivia Castillo on 11-09-2024 Albumin/Globulin [Mass ratio] 2.0 {ratio} 0.9-2.4 [facility] Serum or plasma alkaline jeff sphatase measurementOrdered By: Olivia Castillo on 11-09-2024 ALP [Catalytic activity/Vol] 238 U/L High 35-104 [facility] Serum or plasma calcium alistair urement (mass/volume)Ordered By: Olivia Castillo on 11-09-2024 Calcium [Mass/Vol] 9.3 mg/dL 7.6-11.0 [facility] Serum or plasma ferritin karthikeyan surement (mass/volume)Ordered By: Neha Luciano on 11-09-2024 Ferritin [Mass/Vol] 399 ng/mL High 22-378 [facility] Serum or plasma iron saturat ion measurement (mass fraction)Ordered By: Neha Luciano on 11-09-2024 Iron saturation [Mass fraction] 15.0 % 13-59 [facility] Serum or plasma urea nitroge n measurement (mass/volume)Ordered By: Olivia Castillo on 11-09-2024 Urea nitrogen [Mass/Vol] 11 mg/dL 4-19 [facility] Sodium levelOrdered By: Gregoria Castillo on 11-09-2024 Sodium [Moles/Vol] 145 mmol/L 133-145 [facility] Total proteinOrdered By: Timothy Castillo on 11-09-2024 Protein [Mass/Vol] 6.6 g/dL 5.9-8.4 [facility] Vitamin B12on 11-09-2024 Cobalamin (Vitamin B12) [Mass/Vol] pg/mL High 180-914 [facility] Comment on above: Performed By: #### L 503.6043, L503.0106, L503.6566 ####[facility] [address] [place], [address] White blood cell (WBC) count Ordered By: Olivia Jonathan on 11-09-2024 WBC (Bld) [#/Vol] 13.4 10*3/uL High 4.4-11.0 [facility] Absolute lymphocyte countOrd ered By: [facility] on 10-26-2024 Lymphocytes Auto (Unsp spec) [#/Vol] 1.05 10*3/uL 0.83-4.51 [facility] Absolute neutrophil countOrd ered By: [facility] Jonathan on 10-26-2024 Neutrophils (Bld) [#/Vol] 7.8 10*3/uL High 2.0-7.7 [facility] Anion gap in Serum or Plasma Ordered By: [facility] on 10-26-2024 Anion gap [Moles/Vol] 11 mmol/L 5-15 [facility] Automated blood erythrocyte countOrdered By: [facility] Jonathan on 10-26-2024 RBC (Bld) [#/Vol] 3.51 10*6/uL Low 4.2-5.4 [facility] Comment on above: Performed By: #### L 500.4050, L501.5200, L100.0100 ####[facility] [address] [place], [address] Automated blood hematocrit ( percentage)Ordered By: [facility] on 10-26-2024 Hematocrit (Bld) [Volume fraction] 31.1 % Low 37-47 [facility] Comment on above: Performed By: #### L 500.4050, L501.5200, L100.0100 ####[facility] [address] [place], [address] Automated lymphocyte count a s percentage of total leukocytesOrdered By: [facility] on 10-26-2024 Lymphocytes/100 WBC Auto (Unsp spec) 11.0 % Low 19-41 [facility] BUN/creatinine ratioOrdered By: [facility] on 10-26-2024 Urea nitrogen/Creatinine [Mass ratio] 15.9 mg/mg 10-20 [facility] Basophil percentageOrdered B y: Olivia Castillo on 10-26-2024 Basophils/100 WBC (Bld) 0.6 % Normal 0-1 [facility] Comment on above: Performed By: #### L 500.4050, L501.5200, L100.0100 ####[facility] [address] [place], [address] Bilirubin, totalOrdered By: Olivia Castillo on 10-26-2024 Bilirubin [Mass/Vol] 0.31 mg/dL Normal 0.00-1.30 [facility] Comment on above: Order Comment: Comme nts: ONLY DRAW IF PATIENT HAD DIARRHEA IN PAST 7 DAYSONLY DRAW IF PATIENT HAD DIARRHEA IN PAST 7 DAYS Performed By: #### L 500.4050, L501.5200, L100.0100 ####[facility] [address] [place], [address] CBC W/Diff, Automatedon 10-15 Absolute Lymph 1.05 X10 3/uL Normal 0.83-4.51 [facility] Comment on above: Performed By: #### L 500.4050, L501.5200, L100.0100 ####[facility] [address] [place], [address] Absolute Neut 7.8 X10 3/uL High 2.0-7.7 [facility] Comment on above: Performed By: #### L 500.4050, L501.5200, L100.0100 ####[facility] [address] [place], [address] IG% 1.600 High 0.0-0.9 [facility] Comment on above: Result Comment: IG% - Immature Granulocytes (promyelocytes, myelocytes andmetamyelocytes) > 1% indicates that a LEFT SHIFT is Present. Performed By: #### L 500.4050, L501.5200, L100.0100 ####[facility] [address] [place], [address] Lymphocytes/100 WBC (Bld) 11.0 % Low 19-41 [facility] Comment on above: Performed By: #### L 500.4050, L501.5200, L100.0100 ####[facility] [address] [place], [address] Nucleated RBC (Bld) [#/Vol] 0 10*3/uL Normal 0-5 [facility] Comment on above: Performed By: #### L 500.4050, L501.5200, L100.0100 ####[facility] [address] [place], [address] RDW SD 51.9 fl High 35.1-43.9 [facility] Comment on above: Performed By: #### L 500.4050, L501.5200, L100.0100 ####[facility] [address] [place], [address] Carbon dioxide, total [Moles /volume] in Central venous bloodOrdered By: Olivia Castillo on 10-26-2024 CO2 [Moles/Vol] 21.8 mmol/L Normal 21.0-32.0 [facility] Comment on above: Order Comment: Comme nts: ONLY DRAW IF PATIENT HAD DIARRHEA IN PAST 7 DAYSONLY DRAW IF PATIENT HAD DIARRHEA IN PAST 7 DAYS Performed By: #### L 500.4050, L501.5200, L100.0100 ####[facility] [address] [place], [address] Chloride assayOrdered By: Morgan Castillo on 10-26-2024 Chloride [Moles/Vol] 109 mmol/L High 98-108 [facility] Comment on above: Order Comment: Comme nts: ONLY DRAW IF PATIENT HAD DIARRHEA IN PAST 7 DAYSONLY DRAW IF PATIENT HAD DIARRHEA IN PAST 7 DAYS Performed By: #### L 500.4050, L501.5200, L100.0100 ####[facility] [address] [place], [address] Comprehensive Metabolic Prof ilon 10-26-2024 ALK PHOS 203 U/L High 35-104 [facility] Comment on above: Order Comment: Comme nts: ONLY DRAW IF PATIENT HAD DIARRHEA IN PAST 7 DAYSONLY DRAW IF PATIENT HAD DIARRHEA IN PAST 7 DAYS Performed By: #### L 500.4050, L501.5200, L100.0100 ####[facility] [address] [place], [address] BUN/CRE 15.9 RATIO Normal 10-20 [facility] Comment on above: Order Comment: Comme nts: ONLY DRAW IF PATIENT HAD DIARRHEA IN PAST 7 DAYSONLY DRAW IF PATIENT HAD DIARRHEA IN PAST 7 DAYS Performed By: #### L 500.4050, L501.5200, L100.0100 ####[facility] [address] [facility] [address] ECRCL 97.27 ml/min Normal 50-250 [facility] Comment on above: Order Comment: Comme nts: ONLY DRAW IF PATIENT HAD DIARRHEA IN PAST 7 DAYSONLY DRAW IF PATIENT HAD DIARRHEA IN PAST 7 DAYS Performed By: #### L 500.4050, L501.5200, L100.0100 ####[facility] [address] [place], [address] GAP 11 Normal 5-15 [facility] Comment on above: Order Comment: Comme nts: ONLY DRAW IF PATIENT HAD DIARRHEA IN PAST 7 DAYSONLY DRAW IF PATIENT HAD DIARRHEA IN PAST 7 DAYS Performed By: #### L 500.4050, L501.5200, L100.0100 ####[facility] [address] [place], [address] Potassium [Moles/Vol] 4.1 mmol/L Normal 3.3-5.1 [facility] Comment on above: Order Comment: Comme nts: ONLY DRAW IF PATIENT HAD DIARRHEA IN PAST 7 DAYSONLY DRAW IF PATIENT HAD DIARRHEA IN PAST 7 DAYS Performed By: #### L 500.4050, L501.5200, L100.0100 ####[facility] [address] [place], [address] T PROT 6.7 g/dL Normal 5.9-8.4 [facility] Comment on above: Order Comment: Comme nts: ONLY DRAW IF PATIENT HAD DIARRHEA IN PAST 7 DAYSONLY DRAW IF PATIENT HAD DIARRHEA IN PAST 7 DAYS Performed By: #### L 500.4050, L501.5200, L100.0100 ####[facility] [address] [place], [address] Comprehensive Metabolic Prof ilOrdered By: Olivia Castillo on 10-26-2024 AST [Catalytic activity/Vol] 25 U/L Normal <=31 [facility] Comment on above: Order Comment: Comme nts: ONLY DRAW IF PATIENT HAD DIARRHEA IN PAST 7 DAYSONLY DRAW IF PATIENT HAD DIARRHEA IN PAST 7 DAYS Performed By: #### L 500.4050, L501.5200, L100.0100 ####[facility] [address] [place], [address] Eosinophil percentageOrdered By: Olivia Castillo on 10-26-2024 Eosinophils/100 WBC (Bld) 0.7 % Normal 0-5 [facility] Comment on above: Performed By: #### L 500.4050, L501.5200, L100.0100 ####[facility] [address] [place], [address] Erythrocyte distribution wid th ratioOrdered By: Olivia Castillo on 10-26-2024 Erythrocyte distribution width (RBC) [Ratio] 16.1 % High 11.6-14.6 [facility] Comment on above: Performed By: #### L 500.4050, L501.5200, L100.0100 ####[facility] [address] [place], [address] Erythrocyte distribution wid th standard deviationOrdered By: Olivia Castillo on 10-26-2024 Erythrocyte distribution width (RBC) [Ratio] 51.9 fl High 35.1-43.9 [facility] Glomerular filtration rate ( GFR) estimation/1.73 sq m using serum, plasma, or whole bOrdered By: Olivia Castillo on 10-26-2024 GFR/1.73 sq M.predicted among non-blacks MDRD (S/P/Bld) [Vol rate/Area] 107 mL/min/{1.73_m2} Normal >60 [facility] Comment on above: mL/min/1.73m2 CKD-EP I Creatinine Equation (2020) Order Comment: Comme nts: ONLY DRAW IF PATIENT HAD DIARRHEA IN PAST 7 DAYSONLY DRAW IF PATIENT HAD DIARRHEA IN PAST 7 DAYS Result Comment: mL/m in/1.73m2 CKD-EPI Creatinine Equation (2020) Performed By: #### L 500.4050, L501.5200, L100.0100 ####[facility] [address] [place], [place], [id number] Hemoglobin measurementOrdere d By: Olivia Castillo on 10-26-2024 Hemoglobin (Bld) [Mass/Vol] 9.7 g/dL Low 12.0-15.0 [facility] Comment on above: Performed By: #### L 500.4050, L501.5200, L100.0100 ####[facility] [address] [place], [place], [id number] Immature granulocytes/100 WB C Auto (Bld)Ordered By: Olivia Castillo on 10-26-2024 Immature granulocytes/100 WBC (Bld) 1.600 % High 0.0-0.9 [facility] Comment on above: IG% - Immature Granu locytes (promyelocytes, myelocytes and metamyelocytes) > 1% indicates that a LEFT SHIFT is Present. MCV (mean corpuscular volume ) determinationOrdered By: Olivia Castillo on 10-26-2024 MCV (RBC) [Entitic vol] 88.6 fL Normal 81-99 [facility] Comment on above: Performed By: #### L 500.4050, L501.5200, L100.0100 ####[facility] [address] [place], [address] Magnesiumon 10-26-2024 Magnesium [Mass/Vol] 2.0 mg/dL Normal 1.5-2.2 [facility] Comment on above: Order Comment: Comme nts: ONLY DRAW IF PATIENT HAD DIARRHEA IN PAST 7 DAYS Performed By: #### L 500.4050, L501.5200, L100.0100 ####[facility] [address] [place], [address] Magnesium measurement (mass/ volume)Ordered By: Olivia Castillo on 10-26-2024 Magnesium (Unsp spec) [Mass/Vol] 2.0 mg/dL 1.5-2.2 [facility] Mean corpuscular hemoglobin (MCH) determinationOrdered By: Olivia Castillo on 10-26-2024 MCH (RBC) [Entitic mass] 27.6 pg Normal 27.0-32.0 [facility] Comment on above: Performed By: #### L 500.4050, L501.5200, L100.0100 ####[facility] [address] [place], [address] Mean corpuscular hemoglobin concentration (MCHC) determinationOrdered By: Olivia Castillo on 10-26-2024 MCHC (RBC) [Mass/Vol] 31.2 g/dL Low 32-36 [facility] Comment on above: Performed By: #### L 500.4050, L501.5200, L100.0100 ####[facility] [address] [place], [address] Mean platelet volume determi nationOrdered By: Olivia Castillo on 10-26-2024 Platelet mean volume (Bld) [Entitic vol] 10.1 fL Normal 6.2-12.0 [facility] Comment on above: Performed By: #### L 500.4050, L501.5200, L100.0100 ####[facility] [address] [place], [address] Monocyte percentageOrdered B y: Olivia Castillo on 10-26-2024 Monocytes/100 WBC (Bld) 4.6 % Normal 0-10 [facility] Comment on above: Performed By: #### L 500.4050, L501.5200, L100.0100 ####[facility] [address] [place], [address] Neutrophil percentageOrdered By: Olivia Castillo on 10-26-2024 Neutrophils/100 WBC (Bld) 81.5 % High 47-70 [facility] Comment on above: Performed By: #### L 500.4050, L501.5200, L100.0100 ####[facility] [address] [place], [address] Nucleated red blood cell per centageOrdered By: Olivia Castillo on 10-26-2024 Nucleated RBC/100 WBC (Bld) [Ratio] 0 % 0-5 [facility] Oncology Visit Reporton 10-15 Oncology Visit Report Normal [facility] Phosphoruson 10-26-2024 Phosphate [Mass/Vol] 3.6 mg/dL Normal 2.7-4.5 [facility] Comment on above: Performed By: #### L 501.2300 ####[facility] [address] [place], [address] Platelet countOrdered By: Morgan Castillo on 10-26-2024 Platelets (Bld) [#/Vol] 251 10*3/uL Normal 150-450 [facility] Comment on above: Performed By: #### L 500.4050, L501.5200, L100.0100 ####[facility] [address] [place], [address] Potassium measurement (mass/ volume)Ordered By: Olivia Castillo on 10-26-2024 Potassium (Unsp spec) [Mass/Vol] 4.1 mmol/L 3.3-5.1 [facility] Serum creatinine measurement (mass/volume)Ordered By: Olivia Castillo on 10-26-2024 Creatinine [Mass/Vol] 0.58 mg/dL Low 0.70-1.20 [facility] Comment on above: Order Comment: Comme nts: ONLY DRAW IF PATIENT HAD DIARRHEA IN PAST 7 DAYSONLY DRAW IF PATIENT HAD DIARRHEA IN PAST 7 DAYS Performed By: #### L 500.4050, L501.5200, L100.0100 ####[facility] [address] [place], [address] Serum globulin measurementOr dered By: Olivia Castillo on 10-26-2024 Globulin (S) [Mass/Vol] 2.3 g/dL Normal 2.2-4.2 [facility] Comment on above: Order Comment: Comme nts: ONLY DRAW IF PATIENT HAD DIARRHEA IN PAST 7 DAYSONLY DRAW IF PATIENT HAD DIARRHEA IN PAST 7 DAYS Performed By: #### L 500.4050, L501.5200, L100.0100 ####[facility] [address] [place], [place], [address] Serum glucose measurement (m ass/volume)Ordered By: Olivia Castillo on 10-26-2024 Glucose [Mass/Vol] 94 mg/dL Normal 70-99 [facility] Comment on above: Order Comment: Comme nts: ONLY DRAW IF PATIENT HAD DIARRHEA IN PAST 7 DAYSONLY DRAW IF PATIENT HAD DIARRHEA IN PAST 7 DAYS Performed By: #### L 500.4050, L501.5200, L100.0100 ####[facility] [address] [place], [address] Serum or plasma alanine real otransferase (ALT) measurementOrdered By: Olivia Castillo on 10-26-2024 ALT [Catalytic activity/Vol] 14 U/L Normal <=34 [facility] Comment on above: Order Comment: Comme nts: ONLY DRAW IF PATIENT HAD DIARRHEA IN PAST 7 DAYSONLY DRAW IF PATIENT HAD DIARRHEA IN PAST 7 DAYS Performed By: #### L 500.4050, L501.5200, L100.0100 ####[facility] [address] [place], [address] Serum or plasma albumin alistair urement (mass/volume)Ordered By: Olivia Castillo on 10-26-2024 Albumin [Mass/Vol] 4.3 g/dL Normal 3.5-5.0 [facility] Comment on above: Order Comment: Comme nts: ONLY DRAW IF PATIENT HAD DIARRHEA IN PAST 7 DAYSONLY DRAW IF PATIENT HAD DIARRHEA IN PAST 7 DAYS Performed By: #### L 500.4050, L501.5200, L100.0100 ####[facility] [address] [place], [address] Serum or plasma albumin/glob ulin mass ratioOrdered By: Olivia Castillo on 10-26-2024 Albumin/Globulin [Mass ratio] 1.9 {ratio} Normal 0.9-2.4 [facility] Comment on above: Order Comment: Comme nts: ONLY DRAW IF PATIENT HAD DIARRHEA IN PAST 7 DAYSONLY DRAW IF PATIENT HAD DIARRHEA IN PAST 7 DAYS Performed By: #### L 500.4050, L501.5200, L100.0100 ####[facility] [address] [place], [address] Serum or plasma alkaline jeff sphatase measurementOrdered By: Olivia Castillo on 10-26-2024 ALP [Catalytic activity/Vol] 203 U/L High 35-104 [facility] Serum or plasma calcium alistair urement (mass/volume)Ordered By: Olivia Castillo on 10-26-2024 Calcium [Mass/Vol] 9.1 mg/dL Normal 7.6-11.0 [facility] Comment on above: Order Comment: Comme nts: ONLY DRAW IF PATIENT HAD DIARRHEA IN PAST 7 DAYSONLY DRAW IF PATIENT HAD DIARRHEA IN PAST 7 DAYS Performed By: #### L 500.4050, L501.5200, L100.0100 ####[facility] [address] [place], [address] Serum or plasma urea nitroge n measurement (mass/volume)Ordered By: Olivia Jonathan on 10-26-2024 Urea nitrogen [Mass/Vol] 9 mg/dL Normal 4-19 [facility] Comment on above: Order Comment: Comme nts: ONLY DRAW IF PATIENT HAD DIARRHEA IN PAST 7 DAYSONLY DRAW IF PATIENT HAD DIARRHEA IN PAST 7 DAYS Performed By: #### L 500.4050, L501.5200, L100.0100 ####[facility] [address] [place], [address] Sodium levelOrdered By: Gregoria rivers Jonathan on 10-26-2024 Sodium [Moles/Vol] 141 mmol/L Normal 133-145 [facility] Comment on above: Order Comment: Comme nts: ONLY DRAW IF PATIENT HAD DIARRHEA IN PAST 7 DAYSONLY DRAW IF PATIENT HAD DIARRHEA IN PAST 7 DAYS Performed By: #### L 500.4050, L501.5200, L100.0100 ####[facility] [address] [place], [address] Total proteinOrdered By: Timothy rowe Jonathan on 10-26-2024 Protein [Mass/Vol] 6.7 g/dL 5.9-8.4 [facility] White blood cell (WBC) count Ordered By: Gregoriatita Castillo on 10-26-2024 WBC (Bld) [#/Vol] 9.6 10*3/uL Normal 4.4-11.0 [facility] Comment on above: Performed By: #### L 500.4050, L501.5200, L100.0100 ####[facility] [address] [place], [place], [id number] CA 27.29on 10-20-2024 CA 27.29 303.8 U/mL Abnormal 0.0-38.6 [facility] Comment on above: Result Comment: [employer] Immunochemiluminometric Methodology (ICMA)Values obtained with different assay methods or kits cannotbe used interchangeably. Results cannot be interpreted asabsolute evidence of the presence or absence of malignantdisease.Performed at: - [facility] [id number] [place], [place] [id number] Director: Robert Montana PhD, Phone: [phone] Performed By: #### L 501.3675, L3267.9700, L504.3590 ####[facility] [address] [place], [place], [id number] Absolute lymphocyte countOrd ered By: [facility] on 10-19-2024 Lymphocytes Auto (Unsp spec) [#/Vol] 1.56 10*3/uL 0.83-4.51 [facility] Absolute neutrophil countOrd ered By: [facility] on 10-19-2024 Neutrophils (Bld) [#/Vol] 10.7 10*3/uL High 2.0-7.7 [facility] Anion gap in Serum or Plasma Ordered By: Olivia Castillo on 10-19-2024 Anion gap [Moles/Vol] 11 mmol/L 5-15 [facility] Automated lymphocyte count a s percentage of total leukocytesOrdered By: [facility] Jonathan on 10-19-2024 Lymphocytes/100 WBC Auto (Unsp spec) 11.9 % Low 19-41 [facility] BUN/creatinine ratioOrdered By: [facility] on 10-19-2024 Urea nitrogen/Creatinine [Mass ratio] 15.6 mg/mg 10-20 [facility] Basophil percentageOrdered B y: [facility] on 10-19-2024 Basophils/100 WBC (Bld) 0.6 % 0-1 [facility] Bilirubin, totalOrdered By: [facility] on 10-19-2024 Bilirubin [Mass/Vol] 0.21 mg/dL 0.00-1.30 [facility] CA 27.29Ordered By: [facility] on 10-19-2024 CA 27.29 303.8 U/mL High 0.0-38.6 [facility] Comment on above: [employer] Immu nochemiluminometric Methodology (ICMA)Values obtained with different assay methods or kits cannotbe used interchangeably. Results cannot be interpreted asabsolute evidence of the presence or absence of malignantdisease.Performed at: - [facility] [id number] Director: Robert Montana PhD, Phone: [phone] CBC W/Diff, Automatedon 060 Absolute Lymph 1.56 X10 3/uL Normal 0.83-4.51 [facility] Comment on above: Performed By: #### L 100.0100, L500.4050 ####[facility] [address] [place], [address] Absolute Neut 10.7 X10 3/uL High 2.0-7.7 [facility] Comment on above: Performed By: #### L 100.0100, L500.4050 ####[facility] [address] [place], [address] Basophils/100 WBC (Bld) 0.6 % Normal 0-1 [facility] Comment on above: Performed By: #### L 100.0100, L500.4050 ####[facility] [address] [place], [address] Eosinophils/100 WBC (Bld) 1.1 % Normal 0-5 [facility] Comment on above: Performed By: #### L 100.0100, L500.4050 ####[facility] [address] [place], [address] Erythrocyte distribution width (RBC) [Ratio] 16.4 % High 11.6-14.6 [facility] Comment on above: Performed By: #### L 100.0100, L500.4050 ####[facility] [address] [place], [address] Hematocrit (Bld) [Volume fraction] 32.5 % Low 37-47 [facility] Comment on above: Performed By: #### L 100.0100, L500.4050 ####[facility] [address] [place], [address] Hemoglobin (Bld) [Mass/Vol] 10.3 g/dL Low 12.0-15.0 [facility] Comment on above: Performed By: #### L 100.0100, L500.4050 ####[facility] [address] [place], [address] IG% 1.300 High 0.0-0.9 [facility] Comment on above: Result Comment: IG% - Immature Granulocytes (promyelocytes, myelocytes andmetamyelocytes) > 1% indicates that a LEFT SHIFT is Present. Performed By: #### L 100.0100, L500.4050 ####[facility] [address] [place], [address] Lymphocytes/100 WBC (Bld) 11.9 % Low 19-41 [facility] Comment on above: Performed By: #### L 100.0100, L500.4050 ####[facility] [address] [place], [address] MCH (RBC) [Entitic mass] 28.0 pg Normal 27.0-32.0 [facility] Comment on above: Performed By: #### L 100.0100, L500.4050 ####[facility] [address] [place], [address] MCHC (RBC) [Mass/Vol] 31.7 g/dL Low 32-36 [facility] Comment on above: Performed By: #### L 100.0100, L500.4050 ####[facility] [address] [place], [address] MCV (RBC) [Entitic vol] 88.3 fL Normal 81-99 [facility] Comment on above: Performed By: #### L 100.0100, L500.4050 ####[facility] [address] [place], [address] Monocytes/100 WBC (Bld) 3.4 % Normal 0-10 [facility] Comment on above: Performed By: #### L 100.0100, L500.4050 ####[facility] [address] [place], [address] Neutrophils/100 WBC (Bld) 81.7 % High 47-70 [facility] Comment on above: Performed By: #### L 100.0100, L500.4050 ####[facility] [address] [place], [address] Nucleated RBC (Bld) [#/Vol] 0 10*3/uL Normal 0-5 [facility] Comment on above: Performed By: #### L 100.0100, L500.4050 ####[facility] [address] [place], [address] Platelet mean volume (Bld) [Entitic vol] 9.5 fL Normal 6.2-12.0 [facility] Comment on above: Performed By: #### L 100.0100, L500.4050 ####[facility] [address] [place], [address] Platelets (Bld) [#/Vol] 271 10*3/uL Normal 150-450 [facility] Comment on above: Performed By: #### L 100.0100, L500.4050 ####[facility] [address] [place], [address] RBC (Bld) [#/Vol] 3.68 10*6/uL Low 4.2-5.4 [facility] Comment on above: Performed By: #### L 100.0100, L500.4050 ####[facility] [address] [place], [address] RDW SD 52.7 fl High 35.1-43.9 [facility] Comment on above: Performed By: #### L 100.0100, L500.4050 ####[facility] [address] [place], [address] WBC (Bld) [#/Vol] 13.1 10*3/uL High 4.4-11.0 [facility] Comment on above: Performed By: #### L 100.0100, L500.4050 ####[facility] [address] [place], [address] Carbon dioxide, total [Moles /volume] in Central venous bloodOrdered By: Olivia Castillo on 10-19-2024 CO2 [Moles/Vol] 22.0 mmol/L 21.0-32.0 [facility] Chloride assayOrdered By: Morgan Castillo on 10-19-2024 Chloride [Moles/Vol] 108 mmol/L 98-108 [facility] Comprehensive Metabolic Prof ilon 10-19-2024 Albumin [Mass/Vol] 4.2 g/dL Normal 3.5-5.0 [facility] Comment on above: Performed By: #### L 100.0100, L500.4050 ####[facility] [address] [place], [address] Albumin/Globulin [Mass ratio] 1.7 {ratio} Normal 0.9-2.4 [facility] Comment on above: Performed By: #### L 100.0100, L500.4050 ####[facility] [address] [place], [address] ALK PHOS 245 U/L High 35-104 [facility] Comment on above: Performed By: #### L 100.0100, L500.4050 ####[facility] [address] [place], [address] ALT [Catalytic activity/Vol] 14 U/L Normal <=34 [facility] Comment on above: Performed By: #### L 100.0100, L500.4050 ####[facility] [address] [place], [address] AST [Catalytic activity/Vol] 25 U/L Normal <=31 [facility] Comment on above: Performed By: #### L 100.0100, L500.4050 ####[facility] [address] [place], [address] Bilirubin [Mass/Vol] 0.21 mg/dL Normal 0.00-1.30 [facility] Comment on above: Performed By: #### L 100.0100, L500.4050 ####[facility] [address] [place], [address] BUN/CRE 15.6 RATIO Normal 10-20 [facility] Comment on above: Performed By: #### L 100.0100, L500.4050 ####[facility] [address] [place], [address] Calcium [Mass/Vol] 8.6 mg/dL Normal 7.6-11.0 [facility] Comment on above: Performed By: #### L 100.0100, L500.4050 ####[facility] [address] [place], [address] Chloride [Moles/Vol] 108 mmol/L Normal 98-108 [facility] Comment on above: Performed By: #### L 100.0100, L500.4050 ####[facility] [address] [place], [address] CO2 [Moles/Vol] 22.0 mmol/L Normal 21.0-32.0 [facility] Comment on above: Performed By: #### L 100.0100, L500.4050 ####[facility] [address] [place], [address] Creatinine [Mass/Vol] 0.59 mg/dL Low 0.70-1.20 [facility] Comment on above: Performed By: #### L 100.0100, L500.4050 ####[facility] [address] [place], [address] ECRCL 94.84 ml/min Normal 50-250 [facility] Comment on above: Performed By: #### L 100.0100, L500.4050 ####[facility] [address] [place], [address] GAP 11 Normal 5-15 [facility] Comment on above: Performed By: #### L 100.0100, L500.4050 ####[facility] [address] [place], [address] GFR/1.73 sq M.predicted among non-blacks MDRD (S/P/Bld) [Vol rate/Area] 107 mL/min/{1.73_m2} Normal >60 [facility] Comment on above: Result Comment: mL/m in/1.73m2 CKD-EPI Creatinine Equation (2020) Performed By: #### L 100.0100, L500.4050 ####[facility] [address] [place], [address] Globulin (S) [Mass/Vol] 2.4 g/dL Normal 2.2-4.2 [facility] Comment on above: Performed By: #### L 100.0100, L500.4050 ####[facility] [address] [place], [address] Glucose [Mass/Vol] 101 mg/dL High 70-99 [facility] Comment on above: Performed By: #### L 100.0100, L500.4050 ####[facility] [address] [place], [address] Potassium [Moles/Vol] 4.0 mmol/L Normal 3.3-5.1 [facility] Comment on above: Performed By: #### L 100.0100, L500.4050 ####[facility] [address] [place], [address] Sodium [Moles/Vol] 141 mmol/L Normal 133-145 [facility] Comment on above: Performed By: #### L 100.0100, L500.4050 ####[facility] [address] [place], [address] T PROT 6.7 g/dL Normal 5.9-8.4 [facility] Comment on above: Performed By: #### L 100.0100, L500.4050 ####[facility] [address] [place], [address] Urea nitrogen [Mass/Vol] 9 mg/dL Normal 4-19 [facility] Comment on above: Performed By: #### L 100.0100, L500.4050 ####[facility] [address] [place], [address] Eosinophil percentageOrdered By: Olivia Castillo on 10-19-2024 Eosinophils/100 WBC (Bld) 1.1 % 0-5 [facility] Erythrocyte distribution wid th ratioOrdered By: Olivia Castillo on 10-19-2024 Erythrocyte distribution width (RBC) [Ratio] 16.4 % High 11.6-14.6 [facility] Erythrocyte distribution wid th standard deviationOrdered By: [facility] on 10-19-2024 Erythrocyte distribution width (RBC) [Ratio] 52.7 fl High 35.1-43.9 [facility] Glomerular filtration rate ( GFR) estimation/1.73 sq m using serum, plasma, or whole bOrdered By: Olivia Castillo on 10-19-2024 GFR/1.73 sq M.predicted among non-blacks MDRD (S/P/Bld) [Vol rate/Area] 107 mL/min/{1.73_m2} >60 [facility] Comment on above: mL/min/1.73m2 CKD-EP I Creatinine Equation (2020) Hematocrit Auto (Bld) [Volum e fraction]Ordered By: Olivia Castillo on 10-19-2024 Hematocrit (Bld) [Volume fraction] 32.5 % Low 37-47 [facility] Hemoglobin measurementOrdere d By: Olivia Castillo on 10-19-2024 Hemoglobin (Bld) [Mass/Vol] 10.3 g/dL Low 12.0-15.0 [facility] Immature granulocytes/100 WB C Auto (Bld)Ordered By: Olivia Castillo on 10-19-2024 Immature granulocytes/100 WBC (Bld) 1.300 % High 0.0-0.9 [facility] Comment on above: IG% - Immature Granu locytes (promyelocytes, myelocytes and metamyelocytes) > 1% indicates that a LEFT SHIFT is Present. Laboratory - Chemistry and C hemistry - challengeOrdered By: Olivia Castillo on 10-19-2024 AST [Catalytic activity/Vol] 25 U/L <32 [facility] MCV (mean corpuscular volume ) determinationOrdered By: Olivia Castillo on 10-19-2024 MCV (RBC) [Entitic vol] 88.3 fL 81-99 [facility] Magnesiumon 10-19-2024 Magnesium [Mass/Vol] 2.0 mg/dL Normal 1.5-2.2 [facility] Comment on above: Performed By: #### L 501.2300, L3100.5040, L501.5200 ####[facility] [address] [place], [address] Magnesium measurement (mass/ volume)Ordered By: Olivia Castillo on 10-19-2024 Magnesium (Unsp spec) [Mass/Vol] 2.0 mg/dL 1.5-2.2 [facility] Mean corpuscular hemoglobin (MCH) determinationOrdered By: Olivia Castillo on 10-19-2024 MCH (RBC) [Entitic mass] 28.0 pg 27.0-32.0 [facility] Mean corpuscular hemoglobin concentration (MCHC) determinationOrdered By: [facility] 10-19-2024 MCHC (RBC) [Mass/Vol] 31.7 g/dL Low 32-36 [facility] Mean platelet volume determi nationOrdered By: Olivia Castillo on 10-19-2024 Platelet mean volume (Bld) [Entitic vol] 9.5 fL 6.2-12.0 [facility] Monocyte percentageOrdered B y: Olivia Castillo on 10-19-2024 Monocytes/100 WBC (Bld) 3.4 % 0-10 [facility] Neutrophil percentageOrdered By: Olivia Castillo on 10-19-2024 Neutrophils/100 WBC (Bld) 81.7 % High 47-70 [facility] Nucleated red blood cell per centageOrdered By: Olivia Castillo on 10-19-2024 Nucleated RBC/100 WBC (Bld) [Ratio] 0 % 0-5 [facility] Oncology Visit Reporton Oncology Visit Report Normal [facility] Phosphoruson 10-19-2024 Phosphate [Mass/Vol] 3.8 mg/dL Normal 2.7-4.5 [facility] Comment on above: Performed By: #### L 501.2300, L3100.5040, L501.5200 ####[facility] [address] [place], [place], [id number] Platelet countOrdered By: Morgan Castillo on 10-19-2024 Platelets (Bld) [#/Vol] 271 10*3/uL 150-450 [facility] Potassium measurement (mass/ volume)Ordered By: Olivia Castillo on 10-19-2024 Potassium (Unsp spec) [Mass/Vol] 4.0 mmol/L 3.3-5.1 [facility] RBC Auto (Bld) [#/Vol]Ordere d By: Olivia Castillo on 10-19-2024 RBC (Bld) [#/Vol] 3.68 10*6/uL Low 4.2-5.4 [facility] Serum creatinine measurement (mass/volume)Ordered By: Olivia Castillo on 10-19-2024 Creatinine [Mass/Vol] 0.59 mg/dL Low 0.70-1.20 [facility] Serum globulin measurementOr dered By: Olivia Castillo on 10-19-2024 Globulin (S) [Mass/Vol] 2.4 g/dL 2.2-4.2 [facility] Serum glucose measurement (m ass/volume)Ordered By: Olivia Castillo on 10-19-2024 Glucose [Mass/Vol] 101 mg/dL High 70-99 [facility] Serum or plasma alanine real otransferase (ALT) measurementOrdered By: Olivia Castillo on 10-19-2024 ALT [Catalytic activity/Vol] 14 U/L <35 [facility] Serum or plasma albumin alistair urement (mass/volume)Ordered By: Olivia Castillo on 10-19-2024 Albumin [Mass/Vol] 4.2 g/dL 3.5-5.0 [facility] Serum or plasma albumin/glob ulin mass ratioOrdered By: Olivia Castillo on 10-19-2024 Albumin/Globulin [Mass ratio] 1.7 {ratio} 0.9-2.4 [facility] Serum or plasma alkaline jeff sphatase measurementOrdered By: Olivia Castillo on 10-19-2024 ALP [Catalytic activity/Vol] 245 U/L High 35-104 [facility] Serum or plasma calcium alistair urement (mass/volume)Ordered By: Olivia Castillo on 10-19-2024 Calcium [Mass/Vol] 8.6 mg/dL 7.6-11.0 [facility] Serum or plasma urea nitroge n measurement (mass/volume)Ordered By: Olivia Castillo on 10-19-2024 Urea nitrogen [Mass/Vol] 9 mg/dL 4-19 [facility] Sodium levelOrdered By: Gregoria Castillo on 10-19-2024 Sodium [Moles/Vol] 141 mmol/L 133-145 [facility] Total proteinOrdered By: Timothy Castillo on 10-19-2024 Protein [Mass/Vol] 6.7 g/dL 5.9-8.4 [facility] White blood cell (WBC) count Ordered By: Olivia Castillo on 10-19-2024 WBC (Bld) [#/Vol] 13.1 10*3/uL High 4.4-11.0 [facility] CBC W/Diff, Automatedon 09-15 Absolute Lymph 1.35 X10 3/uL Normal 0.83-4.51 [facility] Comment on above: Order Comment: REDRA W. PREVIOUS SPECIMEN REJECTED DUE TOPOSSIBLY CLOTTED. 10/05/24 Tree Levy. Performed By: #### L 100.0100 ####[facility] [address] [place], [address] Absolute Neut 6.1 X10 3/uL Normal 2.0-7.7 [facility] Comment on above: Order Comment: REDRA W. PREVIOUS SPECIMEN REJECTED DUE TOPOSSIBLY CLOTTED. 10/05/24 [facility] Tiff Levy. Performed By: #### L 100.0100 ####[facility] [address] [place], [address] Basophils/100 WBC (Bld) 0.7 % Normal 0-1 [facility] Comment on above: Order Comment: REDRA W. PREVIOUS SPECIMEN REJECTED DUE TOPOSSIBLY CLOTTED. 10/05/24 [facility] Tiff Levy. Performed By: #### L 100.0100 ####[facility] [address] [place], [address] Eosinophils/100 WBC (Bld) 0.5 % Normal 0-5 [facility] Comment on above: Order Comment: REDRA W. PREVIOUS SPECIMEN REJECTED DUE TOPOSSIBLY CLOTTED. 10/05/24 ElvaConcepcion Levy. Performed By: #### L 100.0100 ####[facility] [address] [place], [address] Erythrocyte distribution width (RBC) [Ratio] 14.4 % Normal 11.6-14.6 [facility] Comment on above: Order Comment: REDRA W. PREVIOUS SPECIMEN REJECTED DUE TOPOSSIBLY CLOTTED. 10/05/24 Elva Tiff Mildred. Performed By: #### L 100.0100 ####[facility] [address] [place], [address] Hematocrit (Bld) [Volume fraction] 32.1 % Low 37-47 [facility] Comment on above: Order Comment: REDRA W. PREVIOUS SPECIMEN REJECTED DUE TOPOSSIBLY CLOTTED. 10/05/24 ElvaConcepcion Tiff Levy. Performed By: #### L 100.0100 ####[facility] [address] [place], [address] Hemoglobin (Bld) [Mass/Vol] 10.1 g/dL Low 12.0-15.0 [facility] Comment on above: Order Comment: REDRA W. PREVIOUS SPECIMEN REJECTED DUE TOPOSSIBLY CLOTTED. 10/05/24 [facility] Tiffgunjan Levy. Performed By: #### L 100.0100 ####[facility] [address] [place], [address] IG% 1.500 High 0.0-0.9 [facility] Comment on above: Order Comment: REDRA W. PREVIOUS SPECIMEN REJECTED DUE TOPOSSIBLY CLOTTED. 10/05/24 [facility] hospital[facility]ion Levy. Result Comment: IG% - Immature Granulocytes (promyelocytes, myelocytes andmetamyelocytes) > 1% indicates that a LEFT SHIFT is Present. Performed By: #### L 100.0100 ####[facility] [address] [place], [address] Lymphocytes/100 WBC (Bld) 16.6 % Low 19-41 [facility] Comment on above: Order Comment: REDRA W. PREVIOUS SPECIMEN REJECTED DUE TOPOSSIBLY CLOTTED. 10/05/24 [facility] access hospitalConcepcion Levy. Performed By: #### L 100.0100 ####[facility] [address] [place], [address] MCH (RBC) [Entitic mass] 27.6 pg Normal 27.0-32.0 [facility] Comment on above: Order Comment: REDRA W. PREVIOUS SPECIMEN REJECTED DUE TOPOSSIBLY CLOTTED. 10/05/24 ElvaConcepcion Tiff Levy. Performed By: #### L 100.0100 ####[facility] [address] [place], [address] MCHC (RBC) [Mass/Vol] 31.5 g/dL Low 32-36 [facility] Comment on above: Order Comment: REDRA W. PREVIOUS SPECIMEN REJECTED DUE TOPOSSIBLY CLOTTED. 10/05/24 Tree Levy. Performed By: #### L 100.0100 ####[facility] [address] [place], [address] MCV (RBC) [Entitic vol] 87.7 fL Normal 81-99 [facility] Comment on above: Order Comment: REDRA W. PREVIOUS SPECIMEN REJECTED DUE TOPOSSIBLY CLOTTED. 10/05/24 Elva Tiff Levy. Performed By: #### L 100.0100 ####[facility] [address] [place], [address] Monocytes/100 WBC (Bld) 5.3 % Normal 0-10 [facility] Comment on above: Order Comment: REDRA W. PREVIOUS SPECIMEN REJECTED DUE TOPOSSIBLY CLOTTED. 10/05/24 Critical access hospitalConcepcion Levy. Performed By: #### L 100.0100 ####[facility] [address] [place], [address] Neutrophils/100 WBC (Bld) 75.4 % High 47-70 [facility] Comment on above: Order Comment: REDRA W. PREVIOUS SPECIMEN REJECTED DUE TOPOSSIBLY CLOTTED. 10/05/24 Tree Levy. Performed By: #### L 100.0100 ####[facility] [address] [place], [address] Nucleated RBC (Bld) [#/Vol] 0 10*3/uL Normal 0-5 [facility] Comment on above: Order Comment: REDRA W. PREVIOUS SPECIMEN REJECTED DUE TOPOSSIBLY CLOTTED. 10/05/24 [facility] Tiff Levy. Performed By: #### L 100.0100 ####[facility] [address] [place], [address] Platelet mean volume (Bld) [Entitic vol] 9.7 fL Normal 6.2-12.0 [facility] Comment on above: Order Comment: REDRA W. PREVIOUS SPECIMEN REJECTED DUE TOPOSSIBLY CLOTTED. 10/05/241137 Tiff Levy. Performed By: #### L 100.0100 ####[facility] [address] [place], [address] Platelets (Bld) [#/Vol] 288 10*3/uL Normal 150-450 [facility] Comment on above: Order Comment: REDRA W. PREVIOUS SPECIMEN REJECTED DUE TOPOSSIBLY CLOTTED. 10/05/24 [facility] Tiff Levy. Performed By: #### L 100.0100 ####[facility] [address] [place], [address] RBC (Bld) [#/Vol] 3.66 10*6/uL Low 4.2-5.4 [facility] Comment on above: Order Comment: REDRA W. PREVIOUS SPECIMEN REJECTED DUE TOPOSSIBLY CLOTTED. 10/05/24 [facility] Tiff Levy. Performed By: #### L 100.0100 ####[facility] [address] [place], [address] RDW SD 45.1 fl High 35.1-43.9 [facility] Comment on above: Order Comment: REDRA W. PREVIOUS SPECIMEN REJECTED DUE TOPOSSIBLY CLOTTED. 10/05/24 [facility] Tiff Levy. Performed By: #### L 100.0100 ####[facility] [address] [place], [address] WBC (Bld) [#/Vol] 8.1 10*3/uL Normal 4.4-11.0 [facility] Comment on above: Order Comment: REDRA W. PREVIOUS SPECIMEN REJECTED DUE TOPOSSIBLY CLOTTED. 10/05/24 [facility] Tiff Levy. Performed By: #### L 100.0100 ####[facility] [address] [place], [address] Absolute Neut Normal 2.0-7.7 [facility] Comment on above: Result Comment: This specimen has been REJECTED due to Laboratory criteria:Clotted.COURTNEY INOCENCIO has been notified of need of recollection.10/05/24 1134 Tiff Levy Performed By: #### L 100.0100, L501.5200, L500.4050 ####[facility] [address] [place], [address] HCT Normal 37-47 [facility] Comment on above: Result Comment: This specimen has been REJECTED due to Laboratory criteria:Clotted.COURTNEY MONTANEZ has been notified of need of recollection.10/05/24 1134 Tiff Levy Performed By: #### L 100.0100, L501.5200, L500.4050 ####[facility] [address] [place], [address] HGB Normal 12.0-15.0 [facility] Comment on above: Result Comment: This specimen has been REJECTED due to Laboratory criteria:Clotted.COURTNEY MONTANEZ has been notified of need of recollection.10/05/24 1134 Tiff Levy Performed By: #### L 100.0100, L501.5200, L500.4050 ####[facility] [address] [place], [address] MCH Normal 27.0-32.0 [facility] Comment on above: Result Comment: This specimen has been REJECTED due to Laboratory criteria:Clotted.COURTNEY INOCENCIO has been notified of need of recollection.10/05/24 1134 Tiff Levy Performed By: #### L 100.0100, L501.5200, L500.4050 ####[facility] [address] [place], [address] MCHC Normal 32-36 [facility] Comment on above: Result Comment: This specimen has been REJECTED due to Laboratory criteria:Clotted.COURTNEY MONTANEZ has been notified of need of recollection.10/05/24 1134 Tiff Levy Performed By: #### L 100.0100, L501.5200, L500.4050 ####[facility] [address] [place], [address] MCV Normal 81-99 [facility] Comment on above: Result Comment: This specimen has been REJECTED due to Laboratory criteria:Clotted.COURTNEY MONTANEZ has been notified of need of recollection.10/05/24 1134 Tiff Levy Performed By: #### L 100.0100, L501.5200, L500.4050 ####[facility] [address] [place], [address] NEUT% Normal 47-70 [facility] Comment on above: Result Comment: This specimen has been REJECTED due to Laboratory criteria:Clotted.COURTNEY MONTANEZ has been notified of need of recollection.10/05/24 1134 Tiff Levy Performed By: #### L 100.0100, L501.5200, L500.4050 ####[facility] [address] [place], [address] PLT Normal 150-450 [facility] Comment on above: Result Comment: This specimen has been REJECTED due to Laboratory criteria:Clotted.COURTNEY MONTANEZ has been notified of need of recollection.10/05/24 1134 Tiff Levy Performed By: #### L 100.0100, L501.5200, L500.4050 ####[facility] [address] [place], [address] RBC Normal 4.2-5.4 [facility] Comment on above: Result Comment: This specimen has been REJECTED due to Laboratory criteria:Clotted.COURTNEY MONTANEZ has been notified of need of recollection.10/05/24 1134 Tiff Levy Performed By: #### L 100.0100, L501.5200, L500.4050 ####[facility] [address] [place], [address] RDW CV Normal 11.6-14.6 [facility] Comment on above: Result Comment: This specimen has been REJECTED due to Laboratory criteria:Clotted.COURTNEY MONTANEZ has been notified of need of recollection.10/05/24 Tammy Levy Performed By: #### L 100.0100, L501.5200, L500.4050 ####[facility] [address] [place], [address] RDW SD Normal 35.1-43.9 [facility] Comment on above: Result Comment: This specimen has been REJECTED due to Laboratory criteria:Clotted.COURTNEY MONTANEZ has been notified of need of recollection.10/05/24 1134 Tiff Levy Performed By: #### L 100.0100, L501.5200, L500.4050 ####[facility] [address] [place], [address] WBC Normal 4.4-11.0 [facility] Comment on above: Result Comment: This specimen has been REJECTED due to Laboratory criteria:Clotted.COURTNEY MONTANEZ has been notified of need of recollection.10/05/24 113Dk Levy Performed By: #### L 100.0100, L501.5200, L500.4050 ####[facility] [address] [place], [address] Comprehensive Metabolic Prof ilon 10-05-2024 Albumin [Mass/Vol] 4.4 g/dL Normal 3.5-5.0 [facility] Comment on above: Order Comment: Comme nts: ONLY DRAW IF PATIENT HAD DIARRHEA IN PAST 7 DAYSONLY DRAW IF PATIENT HAD DIARRHEA IN PAST 7 DAYS Performed By: #### L 100.0100, L501.5200, L500.4050 ####[facility] [address] [place], [address] Albumin/Globulin [Mass ratio] 1.7 {ratio} Normal 0.9-2.4 [facility] Comment on above: Order Comment: Comme nts: ONLY DRAW IF PATIENT HAD DIARRHEA IN PAST 7 DAYSONLY DRAW IF PATIENT HAD DIARRHEA IN PAST 7 DAYS Performed By: #### L 100.0100, L501.5200, L500.4050 ####[facility] [address] [place], [address] ALK PHOS 176 U/L High 35-104 [facility] Comment on above: Order Comment: Comme nts: ONLY DRAW IF PATIENT HAD DIARRHEA IN PAST 7 DAYSONLY DRAW IF PATIENT HAD DIARRHEA IN PAST 7 DAYS Performed By: #### L 100.0100, L501.5200, L500.4050 ####[facility] [address] [place], [address] ALT [Catalytic activity/Vol] 14 U/L Normal <=34 [facility] Comment on above: Order Comment: Comme nts: ONLY DRAW IF PATIENT HAD DIARRHEA IN PAST 7 DAYSONLY DRAW IF PATIENT HAD DIARRHEA IN PAST 7 DAYS Performed By: #### L 100.0100, L501.5200, L500.4050 ####[facility] [address] [place], [address] AST [Catalytic activity/Vol] 27 U/L Normal <=31 [facility] Comment on above: Order Comment: Comme nts: ONLY DRAW IF PATIENT HAD DIARRHEA IN PAST 7 DAYSONLY DRAW IF PATIENT HAD DIARRHEA IN PAST 7 DAYS Performed By: #### L 100.0100, L501.5200, L500.4050 ####[facility] [address] [place], [address] Bilirubin [Mass/Vol] 0.22 mg/dL Normal 0.00-1.30 [facility] Comment on above: Order Comment: Comme nts: ONLY DRAW IF PATIENT HAD DIARRHEA IN PAST 7 DAYSONLY DRAW IF PATIENT HAD DIARRHEA IN PAST 7 DAYS Performed By: #### L 100.0100, L501.5200, L500.4050 ####[facility] [address] [place], [address] BUN/CRE 18.8 RATIO Normal 10-20 [facility] Comment on above: Order Comment: Comme nts: ONLY DRAW IF PATIENT HAD DIARRHEA IN PAST 7 DAYSONLY DRAW IF PATIENT HAD DIARRHEA IN PAST 7 DAYS Performed By: #### L 100.0100, L501.5200, L500.4050 ####[facility] [address] [place], [address] Calcium [Mass/Vol] 8.5 mg/dL Normal 7.6-11.0 [facility] Comment on above: Order Comment: Comme nts: ONLY DRAW IF PATIENT HAD DIARRHEA IN PAST 7 DAYSONLY DRAW IF PATIENT HAD DIARRHEA IN PAST 7 DAYS Performed By: #### L 100.0100, L501.5200, L500.4050 ####[facility] [address] [place], [address] Chloride [Moles/Vol] 108 mmol/L Normal 98-108 [facility] Comment on above: Order Comment: Comme nts: ONLY DRAW IF PATIENT HAD DIARRHEA IN PAST 7 DAYSONLY DRAW IF PATIENT HAD DIARRHEA IN PAST 7 DAYS Performed By: #### L 100.0100, L501.5200, L500.4050 ####[facility] [address] [place], [address] CO2 [Moles/Vol] 22.0 mmol/L Normal 21.0-32.0 [facility] Comment on above: Order Comment: Comme nts: ONLY DRAW IF PATIENT HAD DIARRHEA IN PAST 7 DAYSONLY DRAW IF PATIENT HAD DIARRHEA IN PAST 7 DAYS Performed By: #### L 100.0100, L501.5200, L500.4050 ####[facility] [address] [place], [address] Creatinine [Mass/Vol] 0.62 mg/dL Low 0.70-1.20 [facility] Comment on above: Order Comment: Comme nts: ONLY DRAW IF PATIENT HAD DIARRHEA IN PAST 7 DAYSONLY DRAW IF PATIENT HAD DIARRHEA IN PAST 7 DAYS Performed By: #### L 100.0100, L501.5200, L500.4050 ####[facility] [address] [place], [address] ECRCL 90.25 ml/min Normal 50-250 [facility] Comment on above: Order Comment: Comme nts: ONLY DRAW IF PATIENT HAD DIARRHEA IN PAST 7 DAYSONLY DRAW IF PATIENT HAD DIARRHEA IN PAST 7 DAYS Performed By: #### L 100.0100, L501.5200, L500.4050 ####[facility] [address] [place], [address] GAP 11 Normal 5-15 [facility] Comment on above: Order Comment: Comme nts: ONLY DRAW IF PATIENT HAD DIARRHEA IN PAST 7 DAYSONLY DRAW IF PATIENT HAD DIARRHEA IN PAST 7 DAYS Performed By: #### L 100.0100, L501.5200, L500.4050 ####[facility] [address] [place], [address] GFR/1.73 sq M.predicted among non-blacks MDRD (S/P/Bld) [Vol rate/Area] 106 mL/min/{1.73_m2} Normal >60 [facility] Comment on above: Order Comment: Comme nts: ONLY DRAW IF PATIENT HAD DIARRHEA IN PAST 7 DAYSONLY DRAW IF PATIENT HAD DIARRHEA IN PAST 7 DAYS Result Comment: mL/m in/1.73m2 CKD-EPI Creatinine Equation (2020) Performed By: #### L 100.0100, L501.5200, L500.4050 ####[facility] [address] [place], [address] Globulin (S) [Mass/Vol] 2.6 g/dL Normal 2.2-4.2 [facility] Comment on above: Order Comment: Comme nts: ONLY DRAW IF PATIENT HAD DIARRHEA IN PAST 7 DAYSONLY DRAW IF PATIENT HAD DIARRHEA IN PAST 7 DAYS Performed By: #### L 100.0100, L501.5200, L500.4050 ####[facility] [address] [place], [address] Glucose [Mass/Vol] 88 mg/dL Normal 70-99 [facility] Comment on above: Order Comment: Comme nts: ONLY DRAW IF PATIENT HAD DIARRHEA IN PAST 7 DAYSONLY DRAW IF PATIENT HAD DIARRHEA IN PAST 7 DAYS Performed By: #### L 100.0100, L501.5200, L500.4050 ####[facility] [address] [place], [address] Potassium [Moles/Vol] 4.1 mmol/L Normal 3.3-5.1 [facility] Comment on above: Order Comment: Comme nts: ONLY DRAW IF PATIENT HAD DIARRHEA IN PAST 7 DAYSONLY DRAW IF PATIENT HAD DIARRHEA IN PAST 7 DAYS Performed By: #### L 100.0100, L501.5200, L500.4050 ####[facility] [address] [place], [address] Sodium [Moles/Vol] 141 mmol/L Normal 133-145 [facility] Comment on above: Order Comment: Comme nts: ONLY DRAW IF PATIENT HAD DIARRHEA IN PAST 7 DAYSONLY DRAW IF PATIENT HAD DIARRHEA IN PAST 7 DAYS Performed By: #### L 100.0100, L501.5200, L500.4050 ####[facility] [address] [place], [address] T PROT 6.9 g/dL Normal 5.9-8.4 [facility] Comment on above: Order Comment: Comme nts: ONLY DRAW IF PATIENT HAD DIARRHEA IN PAST 7 DAYSONLY DRAW IF PATIENT HAD DIARRHEA IN PAST 7 DAYS Performed By: #### L 100.0100, L501.5200, L500.4050 ####[facility] [address] [place], [address] Urea nitrogen [Mass/Vol] 12 mg/dL Normal 4-19 [facility] Comment on above: Order Comment: Comme nts: ONLY DRAW IF PATIENT HAD DIARRHEA IN PAST 7 DAYSONLY DRAW IF PATIENT HAD DIARRHEA IN PAST 7 DAYS Performed By: #### L 100.0100, L501.5200, L500.4050 ####[facility] [address] [place], [address] Magnesiumon 10-05-2024 Magnesium [Mass/Vol] 2.1 mg/dL Normal 1.5-2.2 [facility] Comment on above: Order Comment: Comme nts: ONLY DRAW IF PATIENT HAD DIARRHEA IN PAST 7 DAYS Performed By: #### L 100.0100, L501.5200, L500.4050 ####[facility] [address] [place], [place], [address] Oncology Visit Reporton 09-15 Oncology Visit Report Normal [facility] Absolute lymphocyte countOrd ered By: Neha Luciano on 09-28-2024 Lymphocytes Auto (Unsp spec) [#/Vol] 1.54 10*3/uL 0.83-4.51 [facility] Absolute neutrophil countOrd ered By: Neha Luciano on 09-28-2024 Neutrophils (Bld) [#/Vol] 11.8 10*3/uL High 2.0-7.7 [facility] Anion gap in Serum or Plasma Ordered By: Olivia Castillo on 09-28-2024 Anion gap [Moles/Vol] 11 mmol/L 09-28 [facility] Automated lymphocyte count a s percentage of total leukocytesOrdered By: Neha Luciano on 09-28-2024 Lymphocytes/100 WBC Auto (Unsp spec) 10.6 % Low 19-41 [facility] BUN/creatinine ratioOrdered By: Olivia Castillo on 09-28-2024 Urea nitrogen/Creatinine [Mass ratio] 10.3 mg/mg 10-20 [facility] Basophil percentageOrdered B y: Neha Luciano on 09-28-2024 Basophils/100 WBC (Bld) 0.6 % 0- [facility] Bilirubin, totalOrdered By: Olivia Castillo on 09-28-2024 Bilirubin [Mass/Vol] 0.26 mg/dL 0.00-1.30 [facility] CBC W/Diff, Automatedon 05- Absolute Neut Normal 2.0-7.7 [facility] Comment on above: Result Comment: SPEC IMEN CLOTTED SPOKE WITH COURTNEY INOCENCIO Performed By: #### L 100.0100, L500.4050 ####[facility] [address] [place], [address] HCT Normal 37-47 [facility] Comment on above: Result Comment: SPEC IMEN CLOTTED SPOKE WITH COURTNEY INOCENCIO Performed By: #### L 100.0100, L500.4050 ####[facility] [address] [place], [address] HGB Normal 12.0-15.0 [facility] Comment on above: Result Comment: SPEC IMEN CLOTTED SPOKE WITH COURTNEY INOCENCIO Performed By: #### L 100.0100, L500.4050 ####[facility] [address] [place], [address] MCH Normal 27.0-32.0 [facility] Comment on above: Result Comment: SPEC IMEN CLOTTED SPOKE WITH COURTNEY INOCENCIO Performed By: #### L 100.0100, L500.4050 ####[facility] [address] [place], [address] MCHC Normal 32-36 [facility] Comment on above: Result Comment: SPEC IMEN CLOTTED SPOKE WITH COURTNEY INOCENCIO Performed By: #### L 100.0100, L500.4050 ####[facility] [address] [place], [address] MCV Normal 81-99 [facility] Comment on above: Result Comment: SPEC IMEN CLOTTED SPOKE WITH COURTNEY INOCENCIO Performed By: #### L 100.0100, L500.4050 ####[facility] [address] [place], [address] NEUT% Normal 47-70 [facility] Comment on above: Result Comment: SPEC IMEN CLOTTED SPOKE WITH COURTNEY INOCENCIO Performed By: #### L 100.0100, L500.4050 ####[facility] [address] [place], [address] PLT Normal 150-450 [facility] Comment on above: Result Comment: SPEC IMEN CLOTTED SPOKE WITH COURTNEY INOCENCIO Performed By: #### L 100.0100, L500.4050 ####[facility] [address] [place], [address] RBC Normal 4.2-5.4 [facility] Comment on above: Result Comment: SPEC IMEN CLOTTED SPOKE WITH COURTNEY INOCENCIO Performed By: #### L 100.0100, L500.4050 ####[facility] [address] [place], [address] RDW CV Normal 11.6-14.6 [facility] Comment on above: Result Comment: SPEC IMEN CLOTTED SPOKE WITH COURTNEY INOCENCIO Performed By: #### L 100.0100, L500.4050 ####[facility] [address] [place], [address] RDW SD Normal 35.1-43.9 [facility] Comment on above: Result Comment: SPEC IMEN CLOTTED SPOKE WITH COURTNEY INOCENCIO Performed By: #### L 100.0100, L500.4050 ####[facility] [address] [place], [address] WBC Normal 4.4-11.0 [facility] Comment on above: Result Comment: SPEC IMEN CLOTTED SPOKE WITH COURTNEY INOCENCIO Performed By: #### L 100.0100, L500.4050 ####[facility] [address] [place], [address] Absolute Neut Normal 2.0-7.7 [facility] Comment on above: Result Comment: DUPL ICATES Performed By: #### L 100.0100, L500.4050 ####[facility] [address] [place], [address] HCT Normal 37-47 [facility] Comment on above: Result Comment: DUPL ICATES Performed By: #### L 100.0100, L500.4050 ####[facility] [address] [place], [address] HGB Normal 12.0-15.0 [facility] Comment on above: Result Comment: DUPL ICATES Performed By: #### L 100.0100, L500.4050 ####[facility] [address] [place], [address] MCH Normal 27.0-32.0 [facility] Comment on above: Result Comment: DUPL ICATES Performed By: #### L 100.0100, L500.4050 ####[facility] [address] [place], [address] MCHC Normal 32-36 [facility] Comment on above: Result Comment: DUPL ICATES Performed By: #### L 100.0100, L500.4050 ####[facility] [address] [place], [address] MCV Normal 81-99 [facility] Comment on above: Result Comment: DUPL ICATES Performed By: #### L 100.0100, L500.4050 ####[facility] [address] [place], [address] NEUT% Normal 47-70 [facility] Comment on above: Result Comment: DUPL ICATES Performed By: #### L 100.0100, L500.4050 ####[facility] [address] [place], [address] PLT Normal 150-450 [facility] Comment on above: Result Comment: DUPL ICATES Performed By: #### L 100.0100, L500.4050 ####[facility] [address] [place], [address] RBC Normal 4.2-5.4 [facility] Comment on above: Result Comment: DUPL ICATES Performed By: #### L 100.0100, L500.4050 ####[facility] [address] [place], [address] RDW CV Normal 11.6-14.6 [facility] Comment on above: Result Comment: DUPL ICATES Performed By: #### L 100.0100, L500.4050 ####[facility] [address] [place], [address] RDW SD Normal 35.1-43.9 [facility] Comment on above: Result Comment: DUPL ICATES Performed By: #### L 100.0100, L500.4050 ####[facility] [address] [place], [address] WBC Normal 4.4-11.0 [facility] Comment on above: Result Comment: DUPL ICATES Performed By: #### L 100.0100, L500.4050 ####[facility] [address] [place], [address] Carbon dioxide, total [Moles /volume] in Central venous bloodOrdered By: Olivia Castillo on 09-28-2024 CO2 [Moles/Vol] 22.3 mmol/L 21.0-32.0 [facility] Chloride assayOrdered By: Morgan Castillo on 09-28-2024 Chloride [Moles/Vol] 107 mmol/L 98-108 [facility] Comprehensive Metabolic Prof ilon 09-28-2024 Albumin [Mass/Vol] 4.3 g/dL Normal 3.5-5.0 [facility] Comment on above: Performed By: #### L 100.0100, L500.4050 ####[facility] [address] [place], [address] Albumin/Globulin [Mass ratio] 1.8 {ratio} Normal 0.9-2.4 [facility] Comment on above: Performed By: #### L 100.0100, L500.4050 ####[facility] [address] [place], [address] ALK PHOS 208 U/L High 35-104 [facility] Comment on above: Performed By: #### L 100.0100, L500.4050 ####[facility] [address] [place], [address] ALT [Catalytic activity/Vol] 15 U/L Normal <=34 [facility] Comment on above: Performed By: #### L 100.0100, L500.4050 ####[facility] [address] [place], [address] AST [Catalytic activity/Vol] 29 U/L Normal <=31 [facility] Comment on above: Performed By: #### L 100.0100, L500.4050 ####[facility] [address] [place], [address] Bilirubin [Mass/Vol] 0.26 mg/dL Normal 0.00-1.30 [facility] Comment on above: Performed By: #### L 100.0100, L500.4050 ####[facility] [address] [place], [address] BUN/CRE 10.3 RATIO Normal 10-20 [facility] Comment on above: Performed By: #### L 100.0100, L500.4050 ####[facility] [address] [place], [address] Calcium [Mass/Vol] 9.1 mg/dL Normal 7.6-11.0 [facility] Comment on above: Performed By: #### L 100.0100, L500.4050 ####[facility] [address] [place], [address] Chloride [Moles/Vol] 107 mmol/L Normal 98-108 [facility] Comment on above: Performed By: #### L 100.0100, L500.4050 ####[facility] [address] [place], [address] CO2 [Moles/Vol] 22.3 mmol/L Normal 21.0-32.0 [facility] Comment on above: Performed By: #### L 100.0100, L500.4050 ####[facility] [address] [place], [address] Creatinine [Mass/Vol] 0.62 mg/dL Low 0.70-1.20 [facility] Comment on above: Performed By: #### L 100.0100, L500.4050 ####[facility] [address] [place], [address] ECRCL 92.29 ml/min Normal 50-250 [facility] Comment on above: Performed By: #### L 100.0100, L500.4050 ####[facility] [address] [place], [address] GAP 11 Normal 5-15 [facility] Comment on above: Performed By: #### L 100.0100, L500.4050 ####[facility] [address] [place], [address] GFR/1.73 sq M.predicted among non-blacks MDRD (S/P/Bld) [Vol rate/Area] 106 mL/min/{1.73_m2} Normal >60 [facility] Comment on above: Result Comment: mL/m in/1.73m2 CKD-EPI Creatinine Equation (2020) Performed By: #### L 100.0100, L500.4050 ####[facility] [address] [place], [address] Globulin (S) [Mass/Vol] 2.4 g/dL Normal 2.2-4.2 [facility] Comment on above: Performed By: #### L 100.0100, L500.4050 ####[facility] [address] [place], [address] Glucose [Mass/Vol] 86 mg/dL Normal 70-99 [facility] Comment on above: Performed By: #### L 100.0100, L500.4050 ####[facility] [address] [place], [address] Potassium [Moles/Vol] 4.1 mmol/L Normal 3.3-5.1 [facility] Comment on above: Performed By: #### L 100.0100, L500.4050 ####[facility] [address] [place], [address] Sodium [Moles/Vol] 141 mmol/L Normal 133-145 [facility] Comment on above: Performed By: #### L 100.0100, L500.4050 ####[facility] [address] [place], [address] T PROT 6.7 g/dL Normal 5.9-8.4 [facility] Comment on above: Performed By: #### L 100.0100, L500.4050 ####[facility] [address] [place], [address] Urea nitrogen [Mass/Vol] 6 mg/dL Normal 4-19 [facility] Comment on above: Performed By: #### L 100.0100, L500.4050 ####[facility] [address] [place], [address] ALB Normal 3.5-5.0 [facility] Comment on above: Result Comment: DUPL ICATES Performed By: #### L 100.0100, L500.4050 ####[facility] [address] [place], [address] ALK PHOS Normal 35-104 [facility] Comment on above: Result Comment: DUPL ICATES Performed By: #### L 100.0100, L500.4050 ####[facility] [address] [place], [address] ALT Normal <=34 [facility] Comment on above: Result Comment: DUPL ICATES Performed By: #### L 100.0100, L500.4050 ####[facility] [address] [place], [address] AST Normal <=31 [facility] Comment on above: Result Comment: DUPL ICATES Performed By: #### L 100.0100, L500.4050 ####[facility] [address] [place], [address] BUN Normal 4-19 [facility] Comment on above: Result Comment: DUPL ICATES Performed By: #### L 100.0100, L500.4050 ####[facility] [address] [place], [address] BUN/CRE Normal 10-20 [facility] Comment on above: Result Comment: DUPL ICATES Performed By: #### L 100.0100, L500.4050 ####[facility] [address] [place], [address] Calcium Normal 7.6-11.0 [facility] Comment on above: Result Comment: DUPL ICATES Performed By: #### L 100.0100, L500.4050 ####[facility] [address] [place], [address] CL Normal 98-108 [facility] Comment on above: Result Comment: DUPL ICATES Performed By: #### L 100.0100, L500.4050 ####[facility] [address] [place], [address] CO2 Normal 21.0-32.0 [facility] Comment on above: Result Comment: DUPL ICATES Performed By: #### L 100.0100, L500.4050 ####[facility] [address] [place], [address] CREAT,SERUM Normal 0.70-1.20 [facility] Comment on above: Result Comment: DUPL ICATES Performed By: #### L 100.0100, L500.4050 ####[facility] [address] [place], [address] eGFR Normal >60 [facility] Comment on above: Result Comment: DUPL ICATES Performed By: #### L 100.0100, L500.4050 ####[facility] [address] [place], [address] GAP Normal 5-15 [facility] Comment on above: Result Comment: DUPL ICATES Performed By: #### L 100.0100, L500.4050 ####[facility] [address] [place], [address] GLU Normal 70-99 [facility] Comment on above: Result Comment: DUPL ICATES Performed By: #### L 100.0100, L500.4050 ####[facility] [address] [place], [address] Potassium Normal 3.3-5.1 [facility] Comment on above: Result Comment: DUPL ICATES Performed By: #### L 100.0100, L500.4050 ####[facility] [address] [place], [address] T BILI Normal 0.00-1.30 [facility] Comment on above: Result Comment: DUPL ICATES Performed By: #### L 100.0100, L500.4050 ####[facility] [address] [place], [address] T PROT Normal 5.9-8.4 [facility] Comment on above: Result Comment: DUPL ICATES Performed By: #### L 100.0100, L500.4050 ####[facility] [address] [place], [address] Comprehensive Metabolic Profil Normal 133-145 [facility] Comment on above: Result Comment: DUPL ICATES Performed By: #### L 100.0100, L500.4050 ####[facility] [address] [place], [address] Con Inj [employer] Flu roon 09-28-2024 Con Inj [employer] Fluro Normal [facility] Eosinophil percentageOrdered By: Neha Luciano on 09-28-2024 Eosinophils/100 WBC (Bld) 1.1 % 0-5 [facility] Erythrocyte distribution wid th ratioOrdered By: Neha Luciano on 09-28-2024 Erythrocyte distribution width (RBC) [Ratio] 14.8 % High 11.6-14.6 [facility] Erythrocyte distribution wid th standard deviationOrdered By: Neha Luciano on 09-28-2024 Erythrocyte distribution width (RBC) [Ratio] 46.8 fl High 35.1-43.9 [facility] Glomerular filtration rate ( GFR) estimation/1.73 sq m using serum, plasma, or whole bOrdered By: Olivia Castillo on 09-28-2024 GFR/1.73 sq M.predicted among non-blacks MDRD (S/P/Bld) [Vol rate/Area] 106 mL/min/{1.73_m2} >60 [facility] Comment on above: mL/min/1.73m2 CKD-EP I Creatinine Equation (2020) Hematocrit Auto (Bld) [Volum e fraction]Ordered By: Neha Luciano on 09-28-2024 Hematocrit (Bld) [Volume fraction] 33.7 % Low 37-47 [facility] Hemoglobin measurementOrdere d By: Neha Luciano on 09-28-2024 Hemoglobin (Bld) [Mass/Vol] 10.6 g/dL Low 12.0-15.0 [facility] Immature granulocytes/100 WB C Auto (Bld)Ordered By: Neha Luciano on 09-28-2024 Immature granulocytes/100 WBC (Bld) 2.700 % High 0.0-0.9 [facility] Comment on above: IG% - Immature Granu locytes (promyelocytes, myelocytes and metamyelocytes) > 1% indicates that a LEFT SHIFT is Present. Laboratory - Chemistry and C hemistry - challengeOrdered By: Olivia Castillo on 09-28-2024 AST [Catalytic activity/Vol] 29 U/L <32 [facility] MCV (mean corpuscular volume ) determinationOrdered By: Neha Luciano on 09-28-2024 MCV (RBC) [Entitic vol] 87.1 fL 81-99 [facility] Mean corpuscular hemoglobin (MCH) determinationOrdered By: Neha Luciano on 09-28-2024 MCH (RBC) [Entitic mass] 27.4 pg 27.0-32.0 [facility] Mean corpuscular hemoglobin concentration (MCHC) determinationOrdered By: Neha Luciano on 09-28-2024 MCHC (RBC) [Mass/Vol] 31.5 g/dL Low 32-36 [facility] Mean platelet volume determi nationOrdered By: Neha RitchieAnkita on 09-28-2024 Platelet mean volume (Bld) [Entitic vol] 10.9 fL 6.2-12.0 [facility] Monocyte percentageOrdered B y: Neha Luciano on 09-28-2024 Monocytes/100 WBC (Bld) 3.5 % 0-10 [facility] Neutrophil percentageOrdered By: Neha Luciano on 09-28-2024 Neutrophils/100 WBC (Bld) 81.5 % High 47-70 [facility] Nucleated red blood cell per centageOrdered By: Neha RitchieAnkita on 09-28-2024 Nucleated RBC/100 WBC (Bld) [Ratio] 0 % 0-5 [facility] Oncology Visit Reporton 09-14 Oncology Visit Report Normal [facility] Platelet countOrdered By: Zaki Luciano on 09-28-2024 Platelet count TNP [facility] Comment on above: Test not performedPl ease note: For this sample, a platelet estimate is provided rather than a platelet count due to platelet clumping. Other parameters associated with this sample are not affected by platelet clumping. If a more accurate platelet count is required, a redraw of the patient will be necessary. Platelet estimateOrdered By: Neha Luciano on 09-28-2024 Platelets LM Ql (Bld) MOD DEC ADEQ [facility] Potassium measurement (mass/ volume)Ordered By: Olivia Castillo on 09-28-2024 Potassium (Unsp spec) [Mass/Vol] 4.1 mmol/L 3.3-5.1 [facility] RBC Auto (Bld) [#/Vol]Ordere d By: Neha Luciano on 09-28-2024 RBC (Bld) [#/Vol] 3.87 10*6/uL Low 4.2-5.4 [facility] Serum creatinine measurement (mass/volume)Ordered By: Olivia Castillo on 09-28-2024 Creatinine [Mass/Vol] 0.62 mg/dL Low 0.70-1.20 [facility] Serum globulin measurementOr dered By: Olivia Castillo on 09-28-2024 Globulin (S) [Mass/Vol] 2.4 g/dL 2.2-4.2 [facility] Serum glucose measurement (m ass/volume)Ordered By: Olivia Castillo on 09-28-2024 Glucose [Mass/Vol] 86 mg/dL 70-99 [facility] Serum or plasma alanine real otransferase (ALT) measurementOrdered By: Olivia Castillo on 09-28-2024 ALT [Catalytic activity/Vol] 15 U/L <35 [facility] Serum or plasma albumin alistair urement (mass/volume)Ordered By: Olivia Castillo on 09-28-2024 Albumin [Mass/Vol] 4.3 g/dL 3.5-5.0 [facility] Serum or plasma albumin/glob ulin mass ratioOrdered By: Olivia Castillo on 09-28-2024 Albumin/Globulin [Mass ratio] 1.8 {ratio} 0.9-2.4 [facility] Serum or plasma alkaline jeff sphatase measurementOrdered By: Gregoriatita Castillo on 09-28-2024 ALP [Catalytic activity/Vol] 208 U/L High 35-104 [facility] Serum or plasma calcium alistair urement (mass/volume)Ordered By: Olivia Castillo on 09-28-2024 Calcium [Mass/Vol] 9.1 mg/dL 7.6-11.0 [facility] Serum or plasma urea nitroge n measurement (mass/volume)Ordered By: Olivia Castillo on 09-28-2024 Urea nitrogen [Mass/Vol] 6 mg/dL 4-19 [facility] Sodium levelOrdered By: Gregoria tita Jonathan on 09-28-2024 Sodium [Moles/Vol] 141 mmol/L 133-145 [facility] Total proteinOrdered By: Timothy Castillo on 09-28-2024 Protein [Mass/Vol] 6.7 g/dL 5.9-8.4 [facility] White blood cell (WBC) count Ordered By: Neha Luciano on 09-28-2024 WBC (Bld) [#/Vol] 14.5 10*3/uL High 4.4-11.0 [facility] Absolute lymphocyte countOrd ered By: Olivia Castillo on 09-14-2024 Lymphocytes Auto (Unsp spec) [#/Vol] 1.14 10*3/uL 0.83-4.51 [facility] Absolute neutrophil countOrd ered By: Olivia Castillo on 09-14-2024 Neutrophils (Bld) [#/Vol] 4.8 10*3/uL 2.0-7.7 [facility] Automated lymphocyte count a s percentage of total leukocytesOrdered By: Olivia Castillo on 09-14-2024 Lymphocytes/100 WBC Auto (Unsp spec) 17.6 % Low 19-41 [facility] Basophil percentageOrdered B y: Olivia Castillo on 09-14-2024 Basophils/100 WBC (Bld) 0.9 % 0-1 [facility] Bilirubin Test strip Ql (U)O rdered By: Olivia Castillo on 09-14-2024 Bilirubin Ql (U) Negative Negative [facility] CBC W/Diff, Automatedon 05-0 -2024 Absolute Lymph 1.14 X10 3/uL Normal 0.83-4.51 [facility] Comment on above: Performed By: #### L 100.0100, L501.5200, L500.4050 ####[facility] [address] [place], [address] Absolute Neut 4.8 X10 3/uL Normal 2.0-7.7 [facility] Comment on above: Performed By: #### L 100.0100, L501.5200, L500.4050 ####[facility] [address] [place], [address] Basophils/100 WBC (Bld) 0.9 % Normal 0-1 [facility] Comment on above: Performed By: #### L 100.0100, L501.5200, L500.4050 ####[facility] [address] [place], [address] Eosinophils/100 WBC (Bld) 1.9 % Normal 0-5 [facility] Comment on above: Performed By: #### L 100.0100, L501.5200, L500.4050 ####[facility] [address] [place], [address] Erythrocyte distribution width (RBC) [Ratio] 13.1 % Normal 11.6-14.6 [facility] Comment on above: Performed By: #### L 100.0100, L501.5200, L500.4050 ####[facility] [address] [place], [address] Hematocrit (Bld) [Volume fraction] 33.8 % Low 37-47 [facility] Comment on above: Performed By: #### L 100.0100, L501.5200, L500.4050 ####[facility] [address] [place], [address] Hemoglobin (Bld) [Mass/Vol] 11.0 g/dL Low 12.0-15.0 [facility] Comment on above: Performed By: #### L 100.0100, L501.5200, L500.4050 ####[facility] [address] [place], [address] IG% 1.200 High 0.0-0.9 [facility] Comment on above: Result Comment: IG% - Immature Granulocytes (promyelocytes, myelocytes andmetamyelocytes) > 1% indicates that a LEFT SHIFT is Present. Performed By: #### L 100.0100, L501.5200, L500.4050 ####[facility] [address] [place], [address] Lymphocytes/100 WBC (Bld) 17.6 % Low 19-41 [facility] Comment on above: Performed By: #### L 100.0100, L501.5200, L500.4050 ####[facility] [address] [place], [address] MCH (RBC) [Entitic mass] 27.5 pg Normal 27.0-32.0 [facility] Comment on above: Performed By: #### L 100.0100, L501.5200, L500.4050 ####[facility] [address] [place], [address] MCHC (RBC) [Mass/Vol] 32.5 g/dL Normal 32-36 [facility] Comment on above: Performed By: #### L 100.0100, L501.5200, L500.4050 ####[facility] [address] [place], [address] MCV (RBC) [Entitic vol] 84.5 fL Normal 81-99 [facility] Comment on above: Performed By: #### L 100.0100, L501.5200, L500.4050 ####[facility] [address] [place], [address] Monocytes/100 WBC (Bld) 5.1 % Normal 0-10 [facility] Comment on above: Performed By: #### L 100.0100, L501.5200, L500.4050 ####[facility] [address] [place], [address] Neutrophils/100 WBC (Bld) 73.3 % High 47-70 [facility] Comment on above: Performed By: #### L 100.0100, L501.5200, L500.4050 ####[facility] [address] [place], [address] Nucleated RBC (Bld) [#/Vol] 0 10*3/uL Normal 0-5 [facility] Comment on above: Performed By: #### L 100.0100, L501.5200, L500.4050 ####[facility] [address] [place], [address] Platelet mean volume (Bld) [Entitic vol] 10.7 fL Normal 6.2-12.0 [facility] Comment on above: Performed By: #### L 100.0100, L501.5200, L500.4050 ####[facility] [address] [place], [address] Platelets (Bld) [#/Vol] 172 10*3/uL Normal 150-450 [facility] Comment on above: Performed By: #### L 100.0100, L501.5200, L500.4050 ####[facility] [address] [place], [address] RBC (Bld) [#/Vol] 4.00 10*6/uL Low 4.2-5.4 [facility] Comment on above: Performed By: #### L 100.0100, L501.5200, L500.4050 ####[facility] [address] [place], [address] RDW SD 39.8 fl Normal 35.1-43.9 [facility] Comment on above: Performed By: #### L 100.0100, L501.5200, L500.4050 ####[facility] [address] [place], [address] WBC (Bld) [#/Vol] 6.5 10*3/uL Normal 4.4-11.0 [facility] Comment on above: Performed By: #### L 100.0100, L501.5200, L500.4050 ####[facility] [address] [place], [address] Comprehensive Metabolic Prof azon 09-14-2024 Albumin [Mass/Vol] 4.4 g/dL Normal 3.5-5.0 [facility] Comment on above: Order Comment: Comme nts: ONLY DRAW IF PATIENT HAD DIARRHEA IN PAST 7 DAYSONLY DRAW IF PATIENT HAD DIARRHEA IN PAST 7 DAYS Performed By: #### L 100.0100, L501.5200, L500.4050 ####[facility] [address] [place], [address] Albumin/Globulin [Mass ratio] 1.6 {ratio} Normal 0.9-2.4 [facility] Comment on above: Order Comment: Comme nts: ONLY DRAW IF PATIENT HAD DIARRHEA IN PAST 7 DAYSONLY DRAW IF PATIENT HAD DIARRHEA IN PAST 7 DAYS Performed By: #### L 100.0100, L501.5200, L500.4050 ####[facility] [address] [place], [address] ALK PHOS 142 U/L High 35-104 [facility] Comment on above: Order Comment: Comme nts: ONLY DRAW IF PATIENT HAD DIARRHEA IN PAST 7 DAYSONLY DRAW IF PATIENT HAD DIARRHEA IN PAST 7 DAYS Performed By: #### L 100.0100, L501.5200, L500.4050 ####[facility] [address] [place], [address] ALT [Catalytic activity/Vol] 19 U/L Normal <=34 [facility] Comment on above: Order Comment: Comme nts: ONLY DRAW IF PATIENT HAD DIARRHEA IN PAST 7 DAYSONLY DRAW IF PATIENT HAD DIARRHEA IN PAST 7 DAYS Performed By: #### L 100.0100, L501.5200, L500.4050 ####[facility] [address] [place], [address] AST [Catalytic activity/Vol] 31 U/L Normal <=31 [facility] Comment on above: Order Comment: Comme nts: ONLY DRAW IF PATIENT HAD DIARRHEA IN PAST 7 DAYSONLY DRAW IF PATIENT HAD DIARRHEA IN PAST 7 DAYS Performed By: #### L 100.0100, L501.5200, L500.4050 ####[facility] [address] [place], [address] Bilirubin [Mass/Vol] 0.42 mg/dL Normal 0.00-1.30 [facility] Comment on above: Order Comment: Comme nts: ONLY DRAW IF PATIENT HAD DIARRHEA IN PAST 7 DAYSONLY DRAW IF PATIENT HAD DIARRHEA IN PAST 7 DAYS Performed By: #### L 100.0100, L501.5200, L500.4050 ####[facility] [address] [place], [address] BUN/CRE 18.0 RATIO Normal 10-20 [facility] Comment on above: Order Comment: Comme nts: ONLY DRAW IF PATIENT HAD DIARRHEA IN PAST 7 DAYSONLY DRAW IF PATIENT HAD DIARRHEA IN PAST 7 DAYS Performed By: #### L 100.0100, L501.5200, L500.4050 ####[facility] [address] [place], [address] Calcium [Mass/Vol] 9.5 mg/dL Normal 7.6-11.0 [facility] Comment on above: Order Comment: Comme nts: ONLY DRAW IF PATIENT HAD DIARRHEA IN PAST 7 DAYSONLY DRAW IF PATIENT HAD DIARRHEA IN PAST 7 DAYS Performed By: #### L 100.0100, L501.5200, L500.4050 ####[facility] [address] [place], [address] Chloride [Moles/Vol] 105 mmol/L Normal 98-108 [facility] Comment on above: Order Comment: Comme nts: ONLY DRAW IF PATIENT HAD DIARRHEA IN PAST 7 DAYSONLY DRAW IF PATIENT HAD DIARRHEA IN PAST 7 DAYS Performed By: #### L 100.0100, L501.5200, L500.4050 ####[facility] [address] [place], [address] CO2 [Moles/Vol] 23.4 mmol/L Normal 21.0-32.0 [facility] Comment on above: Order Comment: Comme nts: ONLY DRAW IF PATIENT HAD DIARRHEA IN PAST 7 DAYSONLY DRAW IF PATIENT HAD DIARRHEA IN PAST 7 DAYS Performed By: #### L 100.0100, L501.5200, L500.4050 ####[facility] [address] [place], [address] Creatinine [Mass/Vol] 0.71 mg/dL Normal 0.70-1.20 [facility] Comment on above: Order Comment: Comme nts: ONLY DRAW IF PATIENT HAD DIARRHEA IN PAST 7 DAYSONLY DRAW IF PATIENT HAD DIARRHEA IN PAST 7 DAYS Performed By: #### L 100.0100, L501.5200, L500.4050 ####[facility] [address] [place], [address] ECRCL 79.82 ml/min Normal 50-250 [facility] Comment on above: Order Comment: Comme nts: ONLY DRAW IF PATIENT HAD DIARRHEA IN PAST 7 DAYSONLY DRAW IF PATIENT HAD DIARRHEA IN PAST 7 DAYS Performed By: #### L 100.0100, L501.5200, L500.4050 ####[facility] [address] [place], [address] GAP 12 Normal 5-15 [facility] Comment on above: Order Comment: Comme nts: ONLY DRAW IF PATIENT HAD DIARRHEA IN PAST 7 DAYSONLY DRAW IF PATIENT HAD DIARRHEA IN PAST 7 DAYS Performed By: #### L 100.0100, L501.5200, L500.4050 ####[facility] [address] [place], [address] GFR/1.73 sq M.predicted among non-blacks MDRD (S/P/Bld) [Vol rate/Area] 100 mL/min/{1.73_m2} Normal >60 [facility] Comment on above: Order Comment: Comme nts: ONLY DRAW IF PATIENT HAD DIARRHEA IN PAST 7 DAYSONLY DRAW IF PATIENT HAD DIARRHEA IN PAST 7 DAYS Result Comment: mL/m in/1.73m2 CKD-EPI Creatinine Equation (2020) Performed By: #### L 100.0100, L501.5200, L500.4050 ####[facility] [address] [place], [address] Globulin (S) [Mass/Vol] 2.8 g/dL Normal 2.2-4.2 [facility] Comment on above: Order Comment: Comme nts: ONLY DRAW IF PATIENT HAD DIARRHEA IN PAST 7 DAYSONLY DRAW IF PATIENT HAD DIARRHEA IN PAST 7 DAYS Performed By: #### L 100.0100, L501.5200, L500.4050 ####[facility] [address] [place], [address] Glucose [Mass/Vol] 91 mg/dL Normal 70-99 [facility] Comment on above: Order Comment: Comme nts: ONLY DRAW IF PATIENT HAD DIARRHEA IN PAST 7 DAYSONLY DRAW IF PATIENT HAD DIARRHEA IN PAST 7 DAYS Performed By: #### L 100.0100, L501.5200, L500.4050 ####[facility] [address] [place], [address] Potassium [Moles/Vol] 4.0 mmol/L Normal 3.3-5.1 [facility] Comment on above: Order Comment: Comme nts: ONLY DRAW IF PATIENT HAD DIARRHEA IN PAST 7 DAYSONLY DRAW IF PATIENT HAD DIARRHEA IN PAST 7 DAYS Performed By: #### L 100.0100, L501.5200, L500.4050 ####[facility] [address] [place], [address] Sodium [Moles/Vol] 140 mmol/L Normal 133-145 [facility] Comment on above: Order Comment: Comme nts: ONLY DRAW IF PATIENT HAD DIARRHEA IN PAST 7 DAYSONLY DRAW IF PATIENT HAD DIARRHEA IN PAST 7 DAYS Performed By: #### L 100.0100, L501.5200, L500.4050 ####[facility] [address] [place], [address] T PROT 7.2 g/dL Normal 5.9-8.4 [facility] Comment on above: Order Comment: Comme nts: ONLY DRAW IF PATIENT HAD DIARRHEA IN PAST 7 DAYSONLY DRAW IF PATIENT HAD DIARRHEA IN PAST 7 DAYS Performed By: #### L 100.0100, L501.5200, L500.4050 ####[facility] [address] [place], [address] Urea nitrogen [Mass/Vol] 13 mg/dL Normal 4-19 [facility] Comment on above: Order Comment: Comme nts: ONLY DRAW IF PATIENT HAD DIARRHEA IN PAST 7 DAYSONLY DRAW IF PATIENT HAD DIARRHEA IN PAST 7 DAYS Performed By: #### L 100.0100, L501.5200, L500.4050 ####[facility] [address] [place], [address] Eosinophil percentageOrdered By: Olivia Castillo on 09-14-2024 Eosinophils/100 WBC (Bld) 1.9 % 0-5 [facility] Erythrocyte distribution wid th ratioOrdered By: Olivia Castillo on 09-14-2024 Erythrocyte distribution width (RBC) [Ratio] 13.1 % 11.6-14.6 [facility] Erythrocyte distribution wid th standard deviationOrdered By: Olivia Castillo on 09-14-2024 Erythrocyte distribution width (RBC) [Ratio] 39.8 fl 35.1-43.9 [facility] Hematocrit Auto (Bld) [Volum e fraction]Or[facility] By[facility] on 09-14-2024 Hematocrit (Bld) [Volume fraction] 33.8 % Low 37-47 [facility] Hemoglobin measurementOrdere d By: [facility] on 09-14-2024 Hemoglobin (Bld) [Mass/Vol] 11.0 g/dL Low 12.0-15.0 [facility] Immature granulocytes/100 WB C Auto (Bld)Ordered By: [facility] on 09-14-2024 Immature granulocytes/100 WBC (Bld) 1.200 % High 0.0-0.9 [facility] Comment on above: IG% - Immature Granu locytes (promyelocytes, myelocytes and metamyelocytes) > 1% indicates that a LEFT SHIFT is Present. Ketones Test strip Ql (U)Ord ered By: [facility] on 09-14-2024 Ketones Ql (U) Negative Negative [facility] MCV (mean corpuscular volume ) determinationOrdered By: [facility] on 09-14-2024 MCV (RBC) [Entitic vol] 84.5 fL 81-99 [facility] Magnesiumon 09-14-2024 Magnesium [Mass/Vol] 1.7 mg/dL Normal 1.5-2.2 [facility] Comment on above: Order Comment: Comme nts: ONLY DRAW IF PATIENT HAD DIARRHEA IN PAST 7 DAYS Performed By: #### L 100.0100, L501.5200, L500.4050 ####[facility] [address] [place], [place], [id number] Magnesium measurement (mass/ volume)Ordered By: [facility] on 09-14-2024 Magnesium (Unsp spec) [Mass/Vol] 1.7 mg/dL 1.5-2.2 [facility] Mean corpuscular hemoglobin (MCH) determinationOrdered By: [facility] on 09-14-2024 MCH (RBC) [Entitic mass] 27.5 pg 27.0-32.0 [facility] Mean corpuscular hemoglobin concentration (MCHC) determinationOrdered By: Olivia Castillo on 09-14-2024 MCHC (RBC) [Mass/Vol] 32.5 g/dL 32-36 [facility] Mean platelet volume determi nationOrdered By: Olivia Castillo on 09-14-2024 Platelet mean volume (Bld) [Entitic vol] 10.7 fL 6.2-12.0 [facility] Monocyte percentageOrdered B y: Olivia Castillo on 09-14-2024 Monocytes/100 WBC (Bld) 5.1 % 0-10 [facility] Neutrophil percentageOrdered By: Olivia Castillo on 09-14-2024 Neutrophils/100 WBC (Bld) 73.3 % High 47-70 [facility] Nitrite Test strip Ql (U)Ord ered By: Olivia Castillo on 09-14-2024 Nitrite Ql (U) Negative Negative [facility] Nucleated red blood cell per centageOrdered By: Olivia Castillo on 09-14-2024 Nucleated RBC/100 WBC (Bld) [Ratio] 0 % 0-5 [facility] Oncology Visit Reporton 05-0 Oncology Visit Report Normal [facility] Phosphoruson 09-14-2024 Phosphate [Mass/Vol] 3.7 mg/dL Normal 2.7-4.5 [facility] Comment on above: Performed By: #### L 501.2300 ####[facility] [address] [place], [address] Platelet countOrdered By: Morgan Castillo on 09-14-2024 Platelets (Bld) [#/Vol] 172 10*3/uL 150-450 [facility] Protein Test strip Ql (U)Ord ered By: Olivia Castillo on 09-14-2024 Protein Ql (U) 15 mg/dl High Negative [facility] RBC Auto (Bld) [#/Vol]Ordere d By: Olivia Castillo on 09-14-2024 RBC (Bld) [#/Vol] 4.00 10*6/uL Low 4.2-5.4 [facility] Urinalysis, Routine (Dipstic k)on 09-14-2024 BILIRUBIN URINE Negative Normal Negative [facility] Comment on above: Order Comment: Urine , Random Performed By: #### L 400.2010 ####[facility] [address] [place], [address] Clarity (U) Clear Normal Clear [facility] Comment on above: Order Comment: Urine , Random Performed By: #### L 400.2010 ####[facility] [address] [place], [address] Color (U) Yellow Normal Yellow [facility] Comment on above: Order Comment: Urine , Random Performed By: #### L 400.2010 ####[facility] [address] [place], [address] GLUCOSE, UR Normal Normal Normal [facility] Comment on above: Order Comment: Urine , Random Performed By: #### L 400.2010 ####[facility] [address] [place], [address] KETONE UR Negative Normal Negative [facility] Comment on above: Order Comment: Urine , Random Performed By: #### L 400.2010 ####[facility] [address] [place], [address] LEUK ESTERASE Negative Normal Negative [facility] Comment on above: Order Comment: Urine , Random Performed By: #### L 400.2010 ####[facility] [address] [place], [address] Nitrite Ql (U) Negative Normal Negative [facility] Comment on above: Order Comment: Urine , Random Performed By: #### L 400.2010 ####[facility] [address] [place], [address] OCCULT BLOOD-UR Negative Normal Negative [facility] Comment on above: Order Comment: Urine , Random Performed By: #### L 400.2010 ####[facility] [address] [place], [address] pH UR 6.0 Normal 5.0 - 8.0 [facility] Comment on above: Order Comment: Urine , Random Performed By: #### L 400.2010 ####[facility] [address] [place], [address] PROT DIPSTX 15 mg/dl Abnormal Negative [facility] Comment on above: Order Comment: Urine , Random Performed By: #### L 400.2010 ####[facility] [address] [place], [address] SP.GR. DIPSTX 1.020 Normal 1.002-1.030 [facility] Comment on above: Order Comment: Urine , Random Performed By: #### L 400.2010 ####[facility] [address] [place], [address] UROBILI Normal Normal Normal [facility] Comment on above: Order Comment: Urine , Random Performed By: #### L 400.2010 ####[facility] [address] [place], [address] Urine clarityOrdered By: Timothy Castillo on 09-14-2024 Clarity (U) Clear Clear [facility] Urine color determinationOrd ered By: Olivia Castillo on 09-14-2024 Color (U) Yellow Yellow [facility] Urine glucose detectionOrder ed By: Olivia Castillo on 09-14-2024 Glucose Ql (U) Normal mg/dl Normal [facility] Urine leukocyte esterase det ection by dipstickOrdered By: Olivia Castillo on 09-14-2024 Leukocyte esterase Test strip Ql (U) Negative Negative [facility] Urine pHOrdered By: Olivia Castillo on 09-14-2024 pH (U) 6.0 [pH] 5.0 - 8.0 [facility] Urine specific gravity measu rementOrdered By: Olivia Castillo on 09-14-2024 Specific gravity (U) [Rel density] 1.020 1.002-1.030 [facility] Urine urobilinogen measureme ntOrdered By: Olivia Castillo on 09-14-2024 Urobilinogen Ql (U) Normal mg/dl Normal [facility] White blood cell (WBC) count Ordered By: Olivia Castillo on 09-14-2024 WBC (Bld) [#/Vol] 6.5 10*3/uL 4.4-11.0 [facility] CA 27.29on 09-08-2024 CA 27.29 331.8 U/mL Abnormal 0.0-38.6 [facility] Comment on above: Result Comment: [employer] Immunochemiluminometric Methodology (ICMA)Values obtained with different assay methods or kits cannotbe used interchangeably. Results cannot be interpreted asabsolute evidence of the presence or absence of malignantdisease.Performed at: [facility] [id number] Director: Robert Montana PhD, Phone: [phone] Performed By: #### L 503.2674, L3100.7380, L518.3132 ####[facility] [address] [place], [address] CA 27.29Ordered By: Olivia Castillo on 09-07-2024 CA 27.29 331.8 U/mL High 0.0-38.6 [facility] Comment on above: [employer] Immu nochemiluminometric Methodology (ICMA)Values obtained with different assay methods or kits cannotbe used interchangeably. Results cannot be interpreted asabsolute evidence of the presence or absence of malignantdisease.Performed at: [employer] [address] [id number] Director: Robert Montana PhD, Phone: [phone] CBC W/Diff, Automatedon 08-16 Absolute Lymph 1.12 X10 3/uL Normal 0.83-4.51 [facility] Comment on above: Performed By: #### L 100.0100, L500.4050 ####[facility] [address] [place], [address] Absolute Neut 5.5 X10 3/uL Normal 2.0-7.7 [facility] Comment on above: Performed By: #### L 100.0100, L500.4050 ####[facility] [address] [place], [address] Basophils/100 WBC (Bld) 1.0 % Normal 0-1 [facility] Comment on above: Performed By: #### L 100.0100, L500.4050 ####[facility] [address] [place], [address] Eosinophils/100 WBC (Bld) 2.5 % Normal 0-5 [facility] Comment on above: Performed By: #### L 100.0100, L500.4050 ####[facility] [address] [place], [address] Erythrocyte distribution width (RBC) [Ratio] 13.2 % Normal 11.6-14.6 [facility] Comment on above: Performed By: #### L 100.0100, L500.4050 ####[facility] [address] [place], [address] Hematocrit (Bld) [Volume fraction] 35.0 % Low 37-47 [facility] Comment on above: Performed By: #### L 100.0100, L500.4050 ####[facility] [address] [place], [address] Hemoglobin (Bld) [Mass/Vol] 11.0 g/dL Low 12.0-15.0 [facility] Comment on above: Performed By: #### L 100.0100, L500.4050 ####[facility] [address] [place], [address] IG% 0.400 Normal 0.0-0.9 [facility] Comment on above: Result Comment: IG% - Immature Granulocytes (promyelocytes, myelocytes andmetamyelocytes) > 1% indicates that a LEFT SHIFT is Present. Performed By: #### L 100.0100, L500.4050 ####[facility] [address] [place], [address] Lymphocytes/100 WBC (Bld) 15.3 % Low 19-41 [facility] Comment on above: Performed By: #### L 100.0100, L500.4050 ####[facility] [address] [place], [address] MCH (RBC) [Entitic mass] 27.2 pg Normal 27.0-32.0 [facility] Comment on above: Performed By: #### L 100.0100, L500.4050 ####[facility] [address] [place], [address] MCHC (RBC) [Mass/Vol] 31.4 g/dL Low 32-36 [facility] Comment on above: Performed By: #### L 100.0100, L500.4050 ####[facility] [address] [place], [address] MCV (RBC) [Entitic vol] 86.4 fL Normal 81-99 [facility] Comment on above: Performed By: #### L 100.0100, L500.4050 ####[facility] [address] [place], [address] Monocytes/100 WBC (Bld) 6.0 % Normal 0-10 [facility] Comment on above: Performed By: #### L 100.0100, L500.4050 ####[facility] [address] [place], [address] Neutrophils/100 WBC (Bld) 74.8 % High 47-70 [facility] Comment on above: Performed By: #### L 100.0100, L500.4050 ####[facility] [address] [place], [address] Nucleated RBC (Bld) [#/Vol] 0 10*3/uL Normal 0-5 [facility] Comment on above: Performed By: #### L 100.0100, L500.4050 ####[facility] [address] [place], [address] Platelet mean volume (Bld) [Entitic vol] 9.6 fL Normal 6.2-12.0 [facility] Comment on above: Performed By: #### L 100.0100, L500.4050 ####[facility] [address] [place], [address] Platelets (Bld) [#/Vol] 237 10*3/uL Normal 150-450 [facility] Comment on above: Performed By: #### L 100.0100, L500.4050 ####[facility] [address] [place], [address] RBC (Bld) [#/Vol] 4.05 10*6/uL Low 4.2-5.4 [facility] Comment on above: Performed By: #### L 100.0100, L500.4050 ####[facility] [address] [place], [address] RDW SD 41.5 fl Normal 35.1-43.9 [facility] Comment on above: Performed By: #### L 100.0100, L500.4050 ####[facility] [address] [place], [address] WBC (Bld) [#/Vol] 7.3 10*3/uL Normal 4.4-11.0 [facility] Comment on above: Performed By: #### L 100.0100, L500.4050 ####[facility] [address] [place], [address] Comprehensive Metabolic Prof [facility] 09-07-2024 Albumin [Mass/Vol] 4.4 g/dL Normal 3.5-5.0 [facility] Comment on above: Performed By: #### L 100.0100, L500.4050 ####[facility] [address] [place], [address] Albumin/Globulin [Mass ratio] 1.6 {ratio} Normal 0.9-2.4 [facility] Comment on above: Performed By: #### L 100.0100, L500.4050 ####[facility] [address] [place], [address] ALK PHOS 133 U/L High 35-104 [facility] Comment on above: Performed By: #### L 100.0100, L500.4050 ####[facility] [address] [place], [address] ALT [Catalytic activity/Vol] 17 U/L Normal <=34 [facility] Comment on above: Performed By: #### L 100.0100, L500.4050 ####[facility] [address] [place], [address] AST [Catalytic activity/Vol] 43 U/L High <=31 [facility] Comment on above: Performed By: #### L 100.0100, L500.4050 ####[facility] [address] [place], [address] Bilirubin [Mass/Vol] 0.41 mg/dL Normal 0.00-1.30 [facility] Comment on above: Performed By: #### L 100.0100, L500.4050 ####[facility] [address] [place], [address] BUN/CRE 14.5 RATIO Normal 10-20 [facility] Comment on above: Performed By: #### L 100.0100, L500.4050 ####[facility] [address] [place], [address] Calcium [Mass/Vol] 9.3 mg/dL Normal 7.6-11.0 [facility] Comment on above: Performed By: #### L 100.0100, L500.4050 ####[facility] [address] [place], [address] Chloride [Moles/Vol] 107 mmol/L Normal 98-108 [facility] Comment on above: Performed By: #### L 100.0100, L500.4050 ####[facility] [address] [place], [address] CO2 [Moles/Vol] 22.1 mmol/L Normal 21.0-32.0 [facility] Comment on above: Performed By: #### L 100.0100, L500.4050 ####[facility] [address] [place], [address] Creatinine [Mass/Vol] 0.72 mg/dL Normal 0.70-1.20 [facility] Comment on above: Performed By: #### L 100.0100, L500.4050 ####[facility] [address] [place], [address] ECRCL 80.38 ml/min Normal 50-250 [facility] Comment on above: Performed By: #### L 100.0100, L500.4050 ####[facility] [address] [place], [address] GAP 12 Normal 5-15 [facility] Comment on above: Performed By: #### L 100.0100, L500.4050 ####[facility] [address] [place], [address] GFR/1.73 sq M.predicted among non-blacks MDRD (S/P/Bld) [Vol rate/Area] 99 mL/min/{1.73_m2} Normal >60 [facility] Comment on above: Result Comment: mL/m in/1.73m2 CKD-EPI Creatinine Equation (2020) Performed By: #### L 100.0100, L500.4050 ####[facility] [address] [place], [address] Globulin (S) [Mass/Vol] 2.7 g/dL Normal 2.2-4.2 [facility] Comment on above: Performed By: #### L 100.0100, L500.4050 ####[facility] [address] [place], [address] Glucose [Mass/Vol] 106 mg/dL High 70-99 [facility] Comment on above: Performed By: #### L 100.0100, L500.4050 ####[facility] [address] [place], [address] Potassium [Moles/Vol] 4.2 mmol/L Normal 3.3-5.1 [facility] Comment on above: Performed By: #### L 100.0100, L500.4050 ####[facility] [address] [place], [address] Sodium [Moles/Vol] 141 mmol/L Normal 133-145 [facility] Comment on above: Performed By: #### L 100.0100, L500.4050 ####[facility] [address] [place], [address] T PROT 7.1 g/dL Normal 5.9-8.4 [facility] Comment on above: Performed By: #### L 100.0100, L500.4050 ####[facility] [address] [place], [address] Urea nitrogen [Mass/Vol] 11 mg/dL Normal 4-19 [facility] Comment on above: Performed By: #### L 100.0100, L500.4050 ####[facility] [address] [place], [address] Ferritinon 09-07-2024 Ferritin [Mass/Vol] 403 ng/mL High 22-378 [facility] Comment on above: Performed By: #### L 503.6030, L3100.5040, L503.6550 ####[facility] [address] [place], [address] Iron measurement (mass/mass) Ordered By: Olivia Castillo on 09-07-2024 Iron (Unsp spec) [Mass/Mass] 41 ug/dL Low 50-170 [facility] Iron+Iron Binding Capacityon 09-07-2024 Iron [Mass/Vol] 41 ug/dL Low 50-170 [facility] Comment on above: Performed By: #### L 503.6030, L3100.5040, L503.6550 ####[facility] [address] [place], [address] IRON SATURATION 12.0 Low 13-59 [facility] Comment on above: Performed By: #### L 503.6030, L3100.5040, L503.6550 ####[facility] [address] [place], [address] TIBC 332 ug/dL Normal 250-450 [facility] Comment on above: Performed By: #### L 503.6030, L3100.5040, L503.6550 ####[facility] [address] [place], [address] UIBC 291 ug/dL Normal 228-428 [facility] Comment on above: Performed By: #### L 503.6030, L3100.5040, L503.6550 ####[facility] [address] [place], [address] No Panel InformationOrdered By: Olivia Castillo on 09-07-2024 Unsaturated Iron Binding Capacity 291 ug/dL 228-428 [facility] Oncology Visit Reporton 08-16 Oncology Visit Report Normal [facility] Serum or plasma ferritin karthikeyan surement (mass/volume)Ordered By: Olivia Castillo on 09-07-2024 Ferritin [Mass/Vol] 403 ng/mL High 22-378 [facility] Serum or plasma iron saturat ion measurement (mass fraction)Ordered By: Olivia Castillo on 09-07-2024 Iron saturation [Mass fraction] 12.0 % Low 13-59 [facility] Magnetic resonance imaging r eportOrdered By: Tommy Muñiz on 08-28-2024 Study report [facility] Imaging Services [address] [place] [address] Spine Thoracic W/WO Contrast MR#: [id number] Acct: [id number] Name: GRACIELA HAYWOOD Rep #: [id number] : [id number] F [id number] From: Kaylee Muñiz MD PCP: Dr. 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 TECHNIQUE: Thoracic spine MRI without and with intravenous gadolinium-based contrast. Coronal and Sagittal reconstruction series were provided. CONTRAST: Clariscan VOLUME: 12mL Gauge IV COMPARISON: 07/2024 CT chest/abdomen/pelvis; 04/17/2024 and 08/10/2024 nuclear medicine bonescan FINDINGS: Vertebrae: T1, T3, and T12 vertebral body STIR hyperintense and T1 hypointense lesions. A few tiny lesions are scattered in the vertebral bodies. T8 vertebral body fracture. Partially visualized L2 abnormalsignal. Alignment: Normal. No spondylolisthesis. Spinal Cord: Thoracic spinal cord is of normal size and signal intensities. No thoracic spinal cord lesions are identified. Multilevel perineural cysts. Disc spaces: Mild multilevel thoracic degenerative changes without central canalstenosis. Paraspinal Tissues: Mild paraspinous muscle fatty infiltration. Postcontrast images: Enhancement of the vertebral body lesions.. 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 Smaller lesions are noted in the T4 and L1 vertebral bodies. T8 vertebral body fracture redemonstrated. Reading Location: [facility] CC: DAVID Luciano; Dr. Philly Garcia MD ~ Canoe Maker: Signed [facility] Spine Thoracic W/WO Contrast on 08-28-2024 Spine Thoracic W/WO Contrast Normal [facility] Basic Metabolic Profile (BMP )on 08-21-2024 BUN Normal 4-19 [facility] Comment on above: Result Comment: LABS DID NOT GET DRAWN. Performed By: #### L 500.2500 ####[facility] [address] [place], [address] BUN/CRE Normal 10-20 [facility] Comment on above: Result Comment: LABS DID NOT GET DRAWN. Performed By: #### L 500.2500 ####[facility] [address] [place], [address] Calcium Normal 7.6-11.0 [facility] Comment on above: Result Comment: LABS DID NOT GET DRAWN. Performed By: #### L 500.2500 ####[facility] [address] [place], [address] CL Normal 98-108 [facility] Comment on above: Result Comment: LABS DID NOT GET DRAWN. Performed By: #### L 500.2500 ####[facility] [address] [place], [address] CO2 Normal 21.0-32.0 [facility] Comment on above: Result Comment: LABS DID NOT GET DRAWN. Performed By: #### L 500.2500 ####[facility] [address] [place], [address] CREAT,SERUM Normal 0.70-1.20 [facility] Comment on above: Result Comment: LABS DID NOT GET DRAWN. Performed By: #### L 500.2500 ####[facility] [address] [place], [address] eGFR Normal >60 [facility] Comment on above: Result Comment: LABS DID NOT GET DRAWN. Performed By: #### L 500.2500 ####[facility] [address] [place], [address] GAP Normal 5-15 [facility] Comment on above: Result Comment: LABS DID NOT GET DRAWN. Performed By: #### L 500.2500 ####[facility] [address] [place], [address] GLU Normal 70-99 [facility] Comment on above: Result Comment: LABS DID NOT GET DRAWN. Performed By: #### L 500.2500 ####[facility] [address] [place], [address] Potassium Normal 3.3-5.1 [facility] Comment on above: Result Comment: LABS DID NOT GET DRAWN. Performed By: #### L 500.2500 ####[facility] [address] [place], [address] Basic Metabolic Profile (BMP) Normal 133-145 [facility] Comment on above: Result Comment: LABS DID NOT GET DRAWN. Performed By: #### L 500.2500 ####[facility] [address] [place], [address] Abdomen/Pelvis W IV Cont ONL Yon 08-18-2024 Abdomen/Pelvis W IV Cont ONLY Normal [facility] Absolute lymphocyte countOrd ered By: Sheila Avila on 08-18-2024 Lymphocytes Auto (Unsp spec) [#/Vol] 1.30 10*3/uL 0.83-4.51 [facility] Absolute neutrophil countOrd ered By: Sheila Avila on 08-18-2024 Neutrophils (Bld) [#/Vol] 7.1 10*3/uL 2.0-7.7 [facility] Amorphous sediment detection in urine sediment by light microscopyOrdered By: Sheila Avila on 08-18-2024 Amorphous sediment LM Ql (Urine sed) 1+ PHOS [facility] Anion gap in Serum or Plasma Ordered By: Sheila Avila on 08-18-2024 Anion gap [Moles/Vol] 15 mmol/L 5-15 [facility] Automated lymphocyte count a s percentage of total leukocytesOrdered By: Sheila Avila on 08-18-2024 Lymphocytes/100 WBC Auto (Unsp spec) 14.1 % Low 19-41 [facility] BUN/creatinine ratioOrdered By: Sheila Avila on 08-18-2024 Urea nitrogen/Creatinine [Mass ratio] 15.3 mg/mg 10-20 [facility] Basophil percentageOrdered B y: Sheila Avila on 08-18-2024 Basophils/100 WBC (Bld) 0.5 % 0-1 [facility] Bilirubin Test strip Ql (U)O rdered By: Sheila Avila on 08-18-2024 Bilirubin Ql (U) Negative Negative [facility] Bilirubin, totalOrdered By: Sheila Avila on 08-18-2024 Bilirubin [Mass/Vol] 0.78 mg/dL 0.00-1.30 [facility] CBC W/Diff, Automatedon Absolute Lymph 1.30 X10 3/uL Normal 0.83-4.51 [facility] Comment on above: Performed By: #### L 503.6005, L500.4050, L100.0100 ####[facility] [address] [place], [address] Absolute Neut 7.1 X10 3/uL Normal 2.0-7.7 [facility] Comment on above: Performed By: #### L 503.6005, L500.4050, L100.0100 ####[facility] [address] [place], [address] Basophils/100 WBC (Bld) 0.5 % Normal 0-1 [facility] Comment on above: Performed By: #### L 503.6005, L500.4050, L100.0100 ####[facility] [address] [place], [address] Eosinophils/100 WBC (Bld) 1.4 % Normal 0-5 [facility] Comment on above: Performed By: #### L 503.6005, L500.4050, L100.0100 ####[facility] [address] [place], [address] Erythrocyte distribution width (RBC) [Ratio] 13.1 % Normal 11.6-14.6 [facility] Comment on above: Performed By: #### L 503.6005, L500.4050, L100.0100 ####[facility] [address] [place], [address] Hematocrit (Bld) [Volume fraction] 35.6 % Low 37-47 [facility] Comment on above: Performed By: #### L 503.6005, L500.4050, L100.0100 ####[facility] [address] [place], [address] Hemoglobin (Bld) [Mass/Vol] 11.2 g/dL Low 12.0-15.0 [facility] Comment on above: Performed By: #### L 503.6005, L500.4050, L100.0100 ####[facility] [address] [place], [address] IG% 0.200 Normal 0.0-0.9 [facility] Comment on above: Result Comment: IG% - Immature Granulocytes (promyelocytes, myelocytes andmetamyelocytes) > 1% indicates that a LEFT SHIFT is Present. Performed By: #### L 503.6005, L500.4050, L100.0100 ####[facility] [address] [place], [address] Lymphocytes/100 WBC (Bld) 14.1 % Low 19-41 [facility] Comment on above: Performed By: #### L 503.6005, L500.4050, L100.0100 ####[facility] [address] [place], [address] MCH (RBC) [Entitic mass] 27.3 pg Normal 27.0-32.0 [facility] Comment on above: Performed By: #### L 503.6005, L500.4050, L100.0100 ####[facility] [address] [place], [address] MCHC (RBC) [Mass/Vol] 31.5 g/dL Low 32-36 [facility] Comment on above: Performed By: #### L 503.6005, L500.4050, L100.0100 ####[facility] [address] [place], [address] MCV (RBC) [Entitic vol] 86.8 fL Normal 81-99 [facility] Comment on above: Performed By: #### L 503.6005, L500.4050, L100.0100 ####[facility] [address] [place], [address] Monocytes/100 WBC (Bld) 6.9 % Normal 0-10 [facility] Comment on above: Performed By: #### L 503.6005, L500.4050, L100.0100 ####[facility] [address] [place], [address] Neutrophils/100 WBC (Bld) 76.9 % High 47-70 [facility] Comment on above: Performed By: #### L 503.6005, L500.4050, L100.0100 ####[facility] [address] [place], [address] Nucleated RBC (Bld) [#/Vol] 0 10*3/uL Normal 0-5 [facility] Comment on above: Performed By: #### L 503.6005, L500.4050, L100.0100 ####[facility] [address] [place], [address] Platelet mean volume (Bld) [Entitic vol] 9.7 fL Normal 6.2-12.0 [facility] Comment on above: Performed By: #### L 503.6005, L500.4050, L100.0100 ####[facility] [address] [place], [address] Platelets (Bld) [#/Vol] 209 10*3/uL Normal 150-450 [facility] Comment on above: Performed By: #### L 503.6005, L500.4050, L100.0100 ####[facility] [address] [place], [address] RBC (Bld) [#/Vol] 4.10 10*6/uL Low 4.2-5.4 [facility] Comment on above: Performed By: #### L 503.6005, L500.4050, L100.0100 ####[facility] [address] [place], [address] RDW SD 41.3 fl Normal 35.1-43.9 [facility] Comment on above: Performed By: #### L 503.6005, L500.4050, L100.0100 ####[facility] [address] [place], [address] WBC (Bld) [#/Vol] 9.2 10*3/uL Normal 4.4-11.0 [facility] Comment on above: Performed By: #### L 503.6005, L500.4050, L100.0100 ####[facility] [address] [place], [address] CTA Chest W/WO Contraston CTA Chest W/WO Contrast Normal [facility] Carbon dioxide, total [Moles /volume] in Central venous bloodOrdered By: Sheila Avila on 08-18-2024 CO2 [Moles/Vol] 20.6 mmol/L Low 21.0-32.0 [facility] Chloride assayOrdered By: Torin Avila on 08-18-2024 Chloride [Moles/Vol] 106 mmol/L 98-108 [facility] Comprehensive Metabolic Prof ilon 08-18-2024 Albumin [Mass/Vol] 4.4 g/dL Normal 3.5-5.0 [facility] Comment on above: Performed By: #### L 503.6005, L500.4050, L100.0100 ####[facility] [address] [place], [address] Albumin/Globulin [Mass ratio] 1.8 {ratio} Normal 0.9-2.4 [facility] Comment on above: Performed By: #### L 503.6005, L500.4050, L100.0100 ####[facility] [address] [place], [address] ALK PHOS 129 U/L High 35-104 [facility] Comment on above: Performed By: #### L 503.6005, L500.4050, L100.0100 ####[facility] [address] [place], [address] ALT [Catalytic activity/Vol] 14 U/L Normal <=34 [facility] Comment on above: Performed By: #### L 503.6005, L500.4050, L100.0100 ####[facility] [address] [place], [address] AST [Catalytic activity/Vol] 39 U/L High <=31 [facility] Comment on above: Performed By: #### L 503.6005, L500.4050, L100.0100 ####[facility] [address] [place], [address] Bilirubin [Mass/Vol] 0.78 mg/dL Normal 0.00-1.30 [facility] Comment on above: Performed By: #### L 503.6005, L500.4050, L100.0100 ####[facility] [address] [place], [address] BUN/CRE 15.3 RATIO Normal 10-20 [facility] Comment on above: Performed By: #### L 503.6005, L500.4050, L100.0100 ####[facility] [address] [place], [address] Calcium [Mass/Vol] 9.3 mg/dL Normal 7.6-11.0 [facility] Comment on above: Performed By: #### L 503.6005, L500.4050, L100.0100 ####[facility] [address] [place], [address] Chloride [Moles/Vol] 106 mmol/L Normal 98-108 [facility] Comment on above: Performed By: #### L 503.6005, L500.4050, L100.0100 ####[facility] [address] [place], [address] CO2 [Moles/Vol] 20.6 mmol/L Low 21.0-32.0 [facility] Comment on above: Performed By: #### L 503.6005, L500.4050, L100.0100 ####[facility] [address] [place], [address] Creatinine [Mass/Vol] 0.68 mg/dL Low 0.70-1.20 [facility] Comment on above: Performed By: #### L 503.6005, L500.4050, L100.0100 ####[facility] [address] [place], [address] ECRCL 84.65 ml/min Normal 50-250 [facility] Comment on above: Performed By: #### L 503.6005, L500.4050, L100.0100 ####[facility] [address] [place], [address] GAP 15 Normal 5-15 [facility] Comment on above: Performed By: #### L 503.6005, L500.4050, L100.0100 ####[facility] [address] [place], [address] GFR/1.73 sq M.predicted among non-blacks MDRD (S/P/Bld) [Vol rate/Area] 103 mL/min/{1.73_m2} Normal >60 [facility] Comment on above: Result Comment: mL/m in/1.73m2 CKD-EPI Creatinine Equation (2020) Performed By: #### L 503.6005, L500.4050, L100.0100 ####[facility] [address] [place], [address] Globulin (S) [Mass/Vol] 2.5 g/dL Normal 2.2-4.2 [facility] Comment on above: Performed By: #### L 503.6005, L500.4050, L100.0100 ####[facility] [address] [place], [address] Glucose [Mass/Vol] 87 mg/dL Normal 70-99 [facility] Comment on above: Performed By: #### L 503.6005, L500.4050, L100.0100 ####[facility] [address] [place], [address] Potassium [Moles/Vol] 3.6 mmol/L Normal 3.3-5.1 [facility] Comment on above: Performed By: #### L 503.6005, L500.4050, L100.0100 ####[facility] [address] [place], [address] Sodium [Moles/Vol] 142 mmol/L Normal 133-145 [facility] Comment on above: Performed By: #### L 503.6005, L500.4050, L100.0100 ####[facility] [address] [place], [address] T PROT 6.8 g/dL Normal 5.9-8.4 [facility] Comment on above: Performed By: #### L 503.6005, L500.4050, L100.0100 ####[facility] [address] [place], [address] Urea nitrogen [Mass/Vol] 10 mg/dL Normal 4-19 [facility] Comment on above: Performed By: #### L 503.6005, L500.4050, L100.0100 ####[facility] [address] [place], [address] Emergency Department Summary on 08-18-2024 Emergency Department Summary Normal [facility] Eosinophil percentageOrdered By: Sheila Avila on 08-18-2024 Eosinophils/100 WBC (Bld) 1.4 % 0-5 [facility] Epithelial cells.squamous LM Ql (Urine sed)Ordered By: Sheila Avila on 08-18-2024 Epithelial cells.squamous LM.HPF (Urine sed) [#/Area] 0 /[HPF] 5-10 [facility] Erythrocyte distribution wid th (RBC) [Ratio]Ordered By: Sheila Avila on 08-18-2024 Erythrocyte distribution width (RBC) [Entitic vol] 41.3 fL 35.1-43.9 [facility] Erythrocyte distribution wid th ratioOrdered By: Sheila Avila on 08-18-2024 Erythrocyte distribution width (RBC) [Ratio] 13.1 % 11.6-14.6 [facility] Erythrocyte distribution wid th standard deviationOrdered By: Sheila Avila on 08-18-2024 Erythrocyte distribution width (RBC) [Ratio] 41.3 fl 35.1-43.9 [facility] Estimation of creatinine jakob aranceOrdered By: Sheila Avila on 08-18-2024 Estimated Creatinine Clearance Calc 84.65 ml/min 50-250 [facility] GFR/1.73 sq M.predicted ana paula g non-blacks MDRD (S/P/Bld) [Vol rate/Area]Ordered By: Sheila Avila on 08-18-2024 Estimated GFR (MDRD) Non-Af Amer 103 >60 [facility] Comment on above: mL/min/1.73m2 CKD-EP I Creatinine Equation (2020) Glomerular filtration rate ( GFR) estimation/1.73 sq m using serum, plasma, or whole bOrdered By: Sheila Avila on 08-18-2024 GFR/1.73 sq M.predicted among non-blacks MDRD (S/P/Bld) [Vol rate/Area] 103 mL/min/{1.73_m2} >60 [facility] Comment on above: mL/min/1.73m2 CKD-EP I Creatinine Equation (2020) Glucose Ql (U)Ordered By: Torin Avila on 08-18-2024 Urine Glucose (UA) Normal mg/dl Normal [facility] Hematocrit Auto (Bld) [Volum e fraction]Ordered By: Sheila Avila on 08-18-2024 Hematocrit (Bld) [Volume fraction] 35.6 % Low 37-47 [facility] Hemoglobin measurementOrdere d By: hSeila Avila on 08-18-2024 Hemoglobin (Bld) [Mass/Vol] 11.2 g/dL Low 12.0-15.0 [facility] Immature granulocytes/100 WB C Auto (Bld)Ordered By: Sheila Avila on 08-18-2024 Immature granulocytes/100 WBC (Bld) 0.200 % 0.0-0.9 [facility] Comment on above: IG% - Immature Granu locytes (promyelocytes, myelocytes and metamyelocytes) > 1% indicates that a LEFT SHIFT is Present. Ketones Test strip Ql (U)Ord ered By: Sheila Avila on 08-18-2024 Ketones Ql (U) 50 mg/dl High Negative [facility] Laboratory - Chemistry and C hemistry - challengeOrdered By: Sheila Avila on 08-18-2024 AST [Catalytic activity/Vol] 39 U/L High <32 [facility] Lactic Acidon 08-18-2024 Lactate [Moles/Vol] mmol/L Normal 0.0-2.0 [facility] Comment on above: Order Comment: Y Performed By: #### L 503.6005, L500.4050, L100.0100 ####[facility] [address] [place], [address] Lactic acid measurementOrder ed By: Sheila Avila on 08-18-2024 Lactate [Moles/Vol] mmol/L 0.0-2.0 [facility] Lymphocytes Auto (Unsp spec) [#/Vol]Ordered By: Sheila Avila on 08-18-2024 Lymphocytes (Bld) [#/Vol] 1.30 10*3/uL 0.83-4.51 [facility] Lymphocytes/100 WBC Auto (Un sp spec)Ordered By: Sheila Avila on 08-18-2024 Lymphocytes/100 WBC (Bld) 14.1 % Low 19-41 [facility] MCV (mean corpuscular volume ) determinationOrdered By: Sheila Avila on 08-18-2024 MCV (RBC) [Entitic vol] 86.8 fL 81-99 [facility] Mean corpuscular hemoglobin (MCH) determinationOrdered By: Sheila Avila on 08-18-2024 MCH (RBC) [Entitic mass] 27.3 pg 27.0-32.0 [facility] Mean corpuscular hemoglobin concentration (MCHC) determinationOrdered By: Sheila Avila on 08-18-2024 MCHC (RBC) [Mass/Vol] 31.5 g/dL Low 32-36 [facility] Mean platelet volume determi nationOrdered By: Sheila Avila on 08-18-2024 Platelet mean volume (Bld) [Entitic vol] 9.7 fL 6.2-12.0 [facility] Microscopic analysis of urin e for red blood cells (RBC)Ordered By: Sheila Avila on 08-18-2024 Microscopic analysis of urine for red blood cells (RBC) 0-5 SEEN /hpf 0-5 [facility] Urine RBC 0-5 SEEN /hpf 0-5 [facility] Monocyte percentageOrdered B y: Sheila Avila on 08-18-2024 Monocytes/100 WBC (Bld) 6.9 % 0-10 [facility] Mucus LM Ql (Urine sed)Order ed By: Sheila Avila on 08-18-2024 Mucus Ql (Urine sed) 0 SEEN /hpf [facility] Neutrophil percentageOrdered By: Sheila Avila on 08-18-2024 Neutrophils/100 WBC (Bld) 76.9 % High 47-70 [facility] Nitrite Test strip Ql (U)Ord ered By: Sheila Avila on 08-18-2024 Nitrite Ql (U) Negative Negative [facility] Nucleated red blood cell per centageOrdered By: Sheila Avila on 08-18-2024 Nucleated RBC/100 WBC (Bld) [Ratio] 0 % 0-5 [facility] Platelet countOrdered By: Torin Avila on 08-18-2024 Platelets (Bld) [#/Vol] 209 10*3/uL 150-450 [facility] Potassium (Unsp spec) [Mass/ Vol]Ordered By: Sheila Avila on 08-18-2024 Potassium [Moles/Vol] 3.6 mmol/L 3.3-5.1 [facility] Potassium measurement (mass/ volume)Ordered By: Sheila Avila on 08-18-2024 Potassium (Unsp spec) [Mass/Vol] 3.6 mmol/L 3.3-5.1 [facility] Protein Test strip Ql (U)Ord ered By: Sheila Avila on 08-18-2024 Protein Ql (U) 15 mg/dl High Negative [facility] RBC Auto (Bld) [#/Vol]Ordere d By: Sheila Avila on 08-18-2024 RBC (Bld) [#/Vol] 4.10 10*6/uL Low 4.2-5.4 [facility] Serum creatinine measurement (mass/volume)Ordered By: Sheila Avila on 08-18-2024 Creatinine [Mass/Vol] 0.68 mg/dL Low 0.70-1.20 [facility] Serum globulin measurementOr dered By: Sheila Avila on 08-18-2024 Globulin (S) [Mass/Vol] 2.5 g/dL 2.2-4.2 [facility] Serum glucose measurement (m ass/volume)Ordered By: Sheila Avila on 08-18-2024 Glucose [Mass/Vol] 87 mg/dL 70-99 [facility] Serum or plasma alanine real otransferase (ALT) measurementOrdered By: hSeila Avila on 08-18-2024 ALT [Catalytic activity/Vol] 14 U/L <35 [facility] Serum or plasma albumin alistair urement (mass/volume)Ordered By: Sheila Avila on 08-18-2024 Albumin [Mass/Vol] 4.4 g/dL 3.5-5.0 [facility] Serum or plasma albumin/glob ulin mass ratioOrdered By: Sheila Avila on 08-18-2024 Albumin/Globulin [Mass ratio] 1.8 {ratio} 0.9-2.4 [facility] Serum or plasma alkaline jeff sphatase measurementOrdered By: Sheila Avila on 08-18-2024 ALP [Catalytic activity/Vol] 129 U/L High 35-104 [facility] Serum or plasma calcium alistair urement (mass/volume)Ordered By: Sheila Avila on 08-18-2024 Calcium [Mass/Vol] 9.3 mg/dL 7.6-11.0 [facility] Serum or plasma urea nitroge n measurement (mass/volume)Ordered By: Sheila Avila on 08-18-2024 Urea nitrogen [Mass/Vol] 10 mg/dL 4-19 [facility] Sodium levelOrdered By: Amie Avila on 08-18-2024 Sodium [Moles/Vol] 142 mmol/L 133-145 [facility] Squamous epithelial cells de tection in urine sediment by light microscopyOrdered By: Sheila Avila on 08-18-2024 Epithelial cells.squamous LM Ql (Urine sed) 0-5 SEEN /hpf 5-10 [facility] Total proteinOrdered By: Katharina Avila on 08-18-2024 Protein [Mass/Vol] 6.8 g/dL 5.9-8.4 [facility] Urinalysis, Completeon 08-18 AMORPHOUS 1+ PHOS Normal [facility] Comment on above: Order Comment: CLEAN CATCH Performed By: #### L 400.0001 ####[facility] [address] [place], [address] EPI,SQUAMOUS 0-5 SEEN Normal 5-10 [facility] Comment on above: Order Comment: CLEAN CATCH Performed By: #### L 400.0001 ####[facility] [address] [place], [address] RBC 0-5 SEEN Normal 0-5 [facility] Comment on above: Order Comment: CLEAN CATCH Performed By: #### L 400.0001 ####[facility] [address] [place], [address] BACTERIA 0 SEEN Normal None Seen [facility] Comment on above: Order Comment: CLEAN CATCH Performed By: #### L 400.0001 ####[facility] [address] [place], [address] Mucus Ql (Urine sed) 0 SEEN Normal [facility] Comment on above: Order Comment: CLEAN CATCH Performed By: #### L 400.0001 ####[facility] [address] [place], [address] WBC 0 SEEN Normal 0-5 [facility] Comment on above: Order Comment: CLEAN CATCH Performed By: #### L 400.0001 ####[facility] [address] [place], [address] Urine blood detectionOrdered By: Sheila Avila on 08-18-2024 Urine Occult Blood 25 /ul High Negative [facility] Urine clarityOrdered By: Katharina Avila on 08-18-2024 Clarity (U) Sl. Cloudy Clear [facility] Urine color determinationOrd ered By: Sheila Avila on 08-18-2024 Color (U) Yellow Yellow [facility] Urine glucose detectionOrder ed By: Sheila Avila on 08-18-2024 Glucose Ql (U) Normal mg/dl Normal [facility] Urine leukocyte esterase det ection by dipstickOrdered By: Sheila Avila on 08-18-2024 Leukocyte esterase Test strip Ql (U) Negative Negative [facility] Urine pHOrdered By: Sheila dukes on 08-18-2024 pH (U) 7.0 [pH] 5.0 - 8.0 [facility] Urine sediment bacteria coun t by microscopy (number/high power field)Ordered By: Sheila Avila on 08-18-2024 Bacteria LM.HPF (Urine sed) [#/Area] 0 /[HPF] None Seen [facility] Urine specific gravity measu rementOrdered By: Sheila Avila on 08-18-2024 Specific gravity (U) [Rel density] 1.010 1.002-1.030 [facility] Urine urobilinogen measureme ntOrdered By: Sheila Avila on 08-18-2024 Urobilinogen Ql (U) Normal mg/dl Normal [facility] Urobilinogen Ql (U)Ordered B y: Sheila Avila on 08-18-2024 Urine Urobilinogen Normal mg/dl Normal [facility] White blood cell (WBC) count Ordered By: Sheila Avila on 08-18-2024 WBC (Bld) [#/Vol] 9.2 10*3/uL 4.4-11.0 [facility] White blood cell countOrdere d By: Sheila Avila on 08-18-2024 Urine WBC 0 SEEN /hpf 0-5 [facility] White blood cell count 0 SEEN /hpf 0-5 [facility] Bone Scan Whole Bodyon 08-10 Bone Scan Whole Body Normal [facility] Oncology Visit Reporton 07-16 Oncology Visit Report Normal [facility] CT Chest, Abd, Pel w/Contras ton 08-07-2024 CT Chest, Abd, Pel w/Contrast Normal [facility] CA 27.29on 07-26-2024 CA 27.29 121.8 U/mL Abnormal 0.0-38.6 [facility] Comment on above: Result Comment: [employer] Immunochemiluminometric Methodology (ICMA)Values obtained with different assay methods or kits cannotbe used interchangeably. Results cannot be interpreted asabsolute evidence of the presence or absence of malignantdisease.Performed at: [facility] [id number] Director: Robert Montana PhD, Phone: [phone] Performed By: #### L 100.0100, L500.4050, L3100.5040 ####[facility] [address] [place], [address] Absolute neutrophil countOrd ered By: Olivia Castillo on 07-24-2024 Neutrophils (Bld) [#/Vol] 3.8 10*3/uL 2.0-7.7 [facility] Anion gap in Serum or Plasma Ordered By: Olivia Castillo on 07-24-2024 Anion gap [Moles/Vol] 11 mmol/L 5-15 [facility] BUN/creatinine ratioOrdered By: Olivia Castillo on 07-24-2024 Urea nitrogen/Creatinine [Mass ratio] 12.7 mg/mg 10-20 [facility] Basophil percentageOrdered B y: Olivia Castillo on 07-24-2024 Basophils/100 WBC (Bld) 0.8 % 0- [facility] Bilirubin, totalOrdered By: Olivia Castillo on 07-24-2024 Bilirubin [Mass/Vol] 0.46 mg/dL 0.00-1.30 [facility] CA 27.29Ordered By: Olivia Castillo on 07-24-2024 CA 27.29 121.8 U/mL High 0.0-38.6 [facility] Comment on above: [employer] Immu nochemiluminometric Methodology (ICMA)Values obtained with different assay methods or kits cannotbe used interchangeably. Results cannot be interpreted asabsolute evidence of the presence or absence of malignantdisease.Performed at: [facility] [id number] Director: Robert Montana PhD, Phone: [phone] CBC W/Diff, Automatedon 03-1 0-2025 Absolute Lymph 1.57 X10 3/uL Normal 0.83-4.51 [facility] Comment on above: Performed By: #### L 100.0100, L500.4050, L3100.5040 ####[facility] [address] [place], [address] Absolute Neut 3.8 X10 3/uL Normal 2.0-7.7 [facility] Comment on above: Performed By: #### L 100.0100, L500.4050, L3100.5040 ####[facility] [address] [place], [address] Basophils/100 WBC (Bld) 0.8 % Normal 0-1 [facility] Comment on above: Performed By: #### L 100.0100, L500.4050, L3100.5040 ####[facility] [address] [place], [address] Eosinophils/100 WBC (Bld) 4.3 % Normal 0-5 [facility] Comment on above: Performed By: #### L 100.0100, L500.4050, L3100.5040 ####[facility] [address] [place], [address] Erythrocyte distribution width (RBC) [Ratio] 13.6 % Normal 11.6-14.6 [facility] Comment on above: Performed By: #### L 100.0100, L500.4050, L3100.5040 ####[facility] [address] [place], [address] Hematocrit (Bld) [Volume fraction] 36.2 % Low 37-47 [facility] Comment on above: Performed By: #### L 100.0100, L500.4050, L3100.5040 ####[facility] [address] [place], [address] Hemoglobin (Bld) [Mass/Vol] 11.7 g/dL Low 12.0-15.0 [facility] Comment on above: Performed By: #### L 100.0100, L500.4050, L3100.5040 ####[facility] [address] [place], [address] IG% 0.300 Normal 0.0-0.9 [facility] Comment on above: Result Comment: IG% - Immature Granulocytes (promyelocytes, myelocytes andmetamyelocytes) > 1% indicates that a LEFT SHIFT is Present. Performed By: #### L 100.0100, L500.4050, L3100.5040 ####[facility] [address] [place], [address] Lymphocytes/100 WBC (Bld) 25.9 % Normal 19-41 [facility] Comment on above: Performed By: #### L 100.0100, L500.4050, L3100.5040 ####[facility] [address] [place], [address] MCH (RBC) [Entitic mass] 28.2 pg Normal 27.0-32.0 [facility] Comment on above: Performed By: #### L 100.0100, L500.4050, L3100.5040 ####[facility] [address] [place], [address] MCHC (RBC) [Mass/Vol] 32.3 g/dL Normal 32-36 [facility] Comment on above: Performed By: #### L 100.0100, L500.4050, L3100.5040 ####[facility] [address] [place], [address] MCV (RBC) [Entitic vol] 87.2 fL Normal 81-99 [facility] Comment on above: Performed By: #### L 100.0100, L500.4050, L3100.5040 ####[facility] [address] [place], [address] Monocytes/100 WBC (Bld) 6.4 % Normal 0-10 [facility] Comment on above: Performed By: #### L 100.0100, L500.4050, L3100.5040 ####[facility] [address] [place], [address] Neutrophils/100 WBC (Bld) 62.3 % Normal 47-70 [facility] Comment on above: Performed By: #### L 100.0100, L500.4050, L3100.5040 ####[facility] [address] [place], [address] Nucleated RBC (Bld) [#/Vol] 0 10*3/uL Normal 0-5 [facility] Comment on above: Performed By: #### L 100.0100, L500.4050, L3100.5040 ####[facility] [address] [place], [address] Platelet mean volume (Bld) [Entitic vol] 9.4 fL Normal 6.2-12.0 [facility] Comment on above: Performed By: #### L 100.0100, L500.4050, L3100.5040 ####[facility] [address] [place], [address] Platelets (Bld) [#/Vol] 196 10*3/uL Normal 150-450 [facility] Comment on above: Performed By: #### L 100.0100, L500.4050, L3100.5040 ####[facility] [address] [place], [address] RBC (Bld) [#/Vol] 4.15 10*6/uL Low 4.2-5.4 [facility] Comment on above: Performed By: #### L 100.0100, L500.4050, L3100.5040 ####[facility] [address] [place], [address] RDW SD 43.5 fl Normal 35.1-43.9 [facility] Comment on above: Performed By: #### L 100.0100, L500.4050, L3100.5040 ####[facility] [address] [place], [address] WBC (Bld) [#/Vol] 6.1 10*3/uL Normal 4.4-11.0 [facility] Comment on above: Performed By: #### L 100.0100, L500.4050, L3100.5040 ####[facility] [address] [place], [address] Carbon dioxide, total [Moles /volume] in Central venous bloodOrdered By: Olivia Castillo on 07-24-2024 CO2 [Moles/Vol] 23.8 mmol/L 21.0-32.0 [facility] Chloride assayOrdered By: Morgan Castillo on 07-24-2024 Chloride [Moles/Vol] 108 mmol/L 98-108 [facility] Comprehensive Metabolic Prof ilon 07-24-2024 Albumin [Mass/Vol] 4.7 g/dL Normal 3.5-5.0 [facility] Comment on above: Performed By: #### L 100.0100, L500.4050, L3100.5040 ####[facility] [address] [place], [address] Albumin/Globulin [Mass ratio] 1.9 {ratio} Normal 0.9-2.4 [facility] Comment on above: Performed By: #### L 100.0100, L500.4050, L3100.5040 ####[facility] [address] [place], [address] ALK PHOS 147 U/L High 35-104 [facility] Comment on above: Performed By: #### L 100.0100, L500.4050, L3100.5040 ####[facility] [address] [place], [address] ALT [Catalytic activity/Vol] 25 U/L Normal <=34 [facility] Comment on above: Performed By: #### L 100.0100, L500.4050, L3100.5040 ####[facility] [address] [place], [address] AST [Catalytic activity/Vol] 41 U/L High <=31 [facility] Comment on above: Performed By: #### L 100.0100, L500.4050, L3100.5040 ####[facility] [address] [place], [address] Bilirubin [Mass/Vol] 0.46 mg/dL Normal 0.00-1.30 [facility] Comment on above: Performed By: #### L 100.0100, L500.4050, L3100.5040 ####[facility] [address] [place], [address] BUN/CRE 12.7 RATIO Normal 10-20 [facility] Comment on above: Performed By: #### L 100.0100, L500.4050, L3100.5040 ####[facility] [address] [place], [address] Calcium [Mass/Vol] 9.1 mg/dL Normal 7.6-11.0 [facility] Comment on above: Performed By: #### L 100.0100, L500.4050, L3100.5040 ####[facility] [address] [place], [address] Chloride [Moles/Vol] 108 mmol/L Normal 98-108 [facility] Comment on above: Performed By: #### L 100.0100, L500.4050, L3100.5040 ####[facility] [address] [place], [address] CO2 [Moles/Vol] 23.8 mmol/L Normal 21.0-32.0 [facility] Comment on above: Performed By: #### L 100.0100, L500.4050, L3100.5040 ####[facility] [address] [place], [address] Creatinine [Mass/Vol] 0.79 mg/dL Normal 0.70-1.20 [facility] Comment on above: Performed By: #### L 100.0100, L500.4050, L3100.5040 ####[facility] [address] [place], [address] ECRCL 73.25 ml/min Normal 50-250 [facility] Comment on above: Performed By: #### L 100.0100, L500.4050, L3100.5040 ####[facility] [address] [place], [address] GAP 11 Normal 5-15 [facility] Comment on above: Performed By: #### L 100.0100, L500.4050, L3100.5040 ####[facility] [address] [place], [address] GFR/1.73 sq M.predicted among non-blacks MDRD (S/P/Bld) [Vol rate/Area] 90 mL/min/{1.73_m2} Normal >60 [facility] Comment on above: Result Comment: mL/m in/1.73m2 CKD-EPI Creatinine Equation (2020) Performed By: #### L 100.0100, L500.4050, L3100.5040 ####[facility] [address] [place], [address] Globulin (S) [Mass/Vol] 2.4 g/dL Normal 2.2-4.2 [facility] Comment on above: Performed By: #### L 100.0100, L500.4050, L3100.5040 ####[facility] [address] [place], [address] Glucose [Mass/Vol] 90 mg/dL Normal 70-99 [facility] Comment on above: Performed By: #### L 100.0100, L500.4050, L3100.5040 ####[facility] [address] [place], [address] Potassium [Moles/Vol] 3.7 mmol/L Normal 3.3-5.1 [facility] Comment on above: Performed By: #### L 100.0100, L500.4050, L3100.5040 ####[facility] [address] [place], [address] Sodium [Moles/Vol] 143 mmol/L Normal 133-145 [facility] Comment on above: Performed By: #### L 100.0100, L500.4050, L3100.5040 ####[facility] [address] [place], [address] T PROT 7.1 g/dL Normal 5.9-8.4 [facility] Comment on above: Performed By: #### L 100.0100, L500.4050, L3100.5040 ####[facility] [address] [place], [address] Urea nitrogen [Mass/Vol] 10 mg/dL Normal 4-19 [facility] Comment on above: Performed By: #### L 100.0100, L500.4050, L3100.5040 ####[facility] [address] [place], [address] Eosinophil percentageOrdered By: Olivia Castillo on 07-24-2024 Eosinophils/100 WBC (Bld) 4.3 % 0-5 [facility] Erythrocyte distribution wid th ratioOrdered By: Olivia Castillo on 07-24-2024 Erythrocyte distribution width (RBC) [Ratio] 13.6 % 11.6-14.6 [facility] Erythrocyte distribution wid th standard deviationOrdered By: Olivia Castillo on 07-24-2024 Erythrocyte distribution width (RBC) [Entitic vol] 43.5 fL 35.1-43.9 [facility] Estimation of creatinine jakob aranceOrdered By: Olivia Castillo on 07-24-2024 Estimated Creatinine Clearance Calc 73.25 ml/min 50-250 [facility] GFR/1.73 sq M.predicted ana paula g non-blacks MDRD (S/P/Bld) [Vol rate/Area]Ordered By: Olivia Castillo on 07-24-2024 Estimated GFR (MDRD) Non-Af Amer 90 >60 [facility] Comment on above: mL/min/1.73m2 CKD-EP I Creatinine Equation (2020) Hematocrit Auto (Bld) [Volum e fraction]Ordered By: Olivia Castillo on 07-24-2024 Hematocrit (Bld) [Volume fraction] 36.2 % Low 37-47 [facility] Hemoglobin measurementOrdere d By: Olivia Castillo on 07-24-2024 Hemoglobin (Bld) [Mass/Vol] 11.7 g/dL Low 12.0-15.0 [facility] Immature granulocytes/100 WB C Auto (Bld)Ordered By: Olivia Castillo on 07-24-2024 Immature granulocytes/100 WBC (Bld) 0.300 % 0.0-0.9 [facility] Comment on above: IG% - Immature Granu locytes (promyelocytes, myelocytes and metamyelocytes) > 1% indicates that a LEFT SHIFT is Present. Laboratory - Chemistry and C hemistry - challengeOrdered By: Olivia Castillo on 07-24-2024 AST [Catalytic activity/Vol] 41 U/L High <32 [facility] Lymphocytes Auto (Unsp spec) [#/Vol]Ordered By: Olivia Castillo on 07-24-2024 Lymphocytes (Bld) [#/Vol] 1.57 10*3/uL 0.83-4.51 [facility] Lymphocytes/100 WBC Auto (Un sp spec)Ordered By: Olivia Castillo on 07-24-2024 Lymphocytes/100 WBC (Bld) 25.9 % 19-41 [facility] MCV (mean corpuscular volume ) determinationOrdered By: Olivia Castillo on 07-24-2024 MCV (RBC) [Entitic vol] 87.2 fL 81-99 [facility] Mean corpuscular hemoglobin (MCH) determinationOrdered By: Olivia Castillo on 07-24-2024 MCH (RBC) [Entitic mass] 28.2 pg 27.0-32.0 [facility] Mean corpuscular hemoglobin concentration (MCHC) determinationOrdered By: Olivia Castillo on 07-24-2024 MCHC (RBC) [Mass/Vol] 32.3 g/dL 32-36 [facility] Mean platelet volume determi nationOrdered By: Olivia Castillo on 07-24-2024 Platelet mean volume (Bld) [Entitic vol] 9.4 fL 6.2-12.0 [facility] Monocyte percentageOrdered B y: Olivia Castillo on 07-24-2024 Monocytes/100 WBC (Bld) 6.4 % 0-10 [facility] Neutrophil percentageOrdered By: Olivia Castillo on 07-24-2024 Neutrophils/100 WBC (Bld) 62.3 % 47-70 [facility] Nucleated red blood cell per centageOrdered By: Olivia Castillo on 07-24-2024 Nucleated RBC/100 WBC (Bld) [Ratio] 0 % 0-5 [facility] Oncology Visit Reporton 07-15 Oncology Visit Report Normal [facility] Platelet countOrdered By: Morgan Castillo on 07-24-2024 Platelets (Bld) [#/Vol] 196 10*3/uL 150-450 [facility] Potassium (Unsp spec) [Mass/ Vol]Ordered By: Olivia Castillo on 07-24-2024 Potassium [Moles/Vol] 3.7 mmol/L 3.3-5.1 [facility] RBC Auto (Bld) [#/Vol]Ordere d By: Olivia Castillo on 07-24-2024 RBC (Bld) [#/Vol] 4.15 10*6/uL Low 4.2-5.4 [facility] Serum creatinine measurement (mass/volume)Ordered By: Olivia Castillo on 07-24-2024 Creatinine [Mass/Vol] 0.79 mg/dL 0.70-1.20 [facility] Serum globulin measurementOr dered By: Olivia Castillo on 07-24-2024 Globulin (S) [Mass/Vol] 2.4 g/dL 2.2-4.2 [facility] Serum glucose measurement (m ass/volume)Ordered By: Olivia Castillo on 07-24-2024 Glucose [Mass/Vol] 90 mg/dL 70-99 [facility] Serum or plasma alanine real otransferase (ALT) measurementOrdered By: Olivia Castillo on 07-24-2024 ALT [Catalytic activity/Vol] 25 U/L <35 [facility] Serum or plasma albumin alistair urement (mass/volume)Ordered By: Olivia Castillo on 07-24-2024 Albumin [Mass/Vol] 4.7 g/dL 3.5-5.0 [facility] Serum or plasma albumin/glob ulin mass ratioOrdered By: Olivia Castillo on 07-24-2024 Albumin/Globulin [Mass ratio] 1.9 {ratio} 0.9-2.4 [facility] Serum or plasma alkaline jeff sphatase measurementOrdered By: Olivia Castillo on 07-24-2024 ALP [Catalytic activity/Vol] 147 U/L High 35-104 [facility] Serum or plasma calcium alistair urement (mass/volume)Ordered By: Olivia Castillo on 07-24-2024 Calcium [Mass/Vol] 9.1 mg/dL 7.6-11.0 [facility] Serum or plasma urea nitroge n measurement (mass/volume)Ordered By: Olivia Castillo on 07-24-2024 Urea nitrogen [Mass/Vol] 10 mg/dL 4-19 [facility] Sodium levelOrdered By: Gregoria Castillo on 07-24-2024 Sodium [Moles/Vol] 143 mmol/L 133-145 [facility] Total proteinOrdered By: Timothy Castillo on 07-24-2024 Protein [Mass/Vol] 7.1 g/dL 5.9-8.4 [facility] White blood cell (WBC) count Ordered By: Olivia Castillo on 07-24-2024 WBC (Bld) [#/Vol] 6.1 10*3/uL 4.4-11.0 [facility] CA 27.29on 06-28-2024 CA 27.29 107.6 U/mL Abnormal 0.0-38.6 [facility] Comment on above: Order Comment: MATTIE Da Silva ADD TO BLOOD IN LAB. THANK YOU!!! ADD TO SPEC [id number] SK2 Result Comment: [facility] [employer] Immunochemiluminometric Methodology (ICMA)Values obtained with different assay methods or kits cannotbe used interchangeably. Results cannot be interpreted asabsolute evidence of the presence or absence of malignantdisease.Performed at: [facility] [employer] [facility] [employer] [id number] Director: Robert Montana PhD, Phone: [phone] Performed By: #### L 3100.5040 ####[facility] [address] [place], [address] CBC W/Diff, Automatedon 06-17 Absolute Lymph 1.37 X10 3/uL Normal 0.83-4.51 [facility] Comment on above: Order Comment: UTO F ROM PORT Performed By: #### L 500.4050, L100.0100 ####[facility] [address] [place], [address] Absolute Neut 3.2 X10 3/uL Normal 2.0-7.7 [facility] Comment on above: Order Comment: UTO F ROM PORT Performed By: #### L 500.4050, L100.0100 ####[facility] [address] [place], [address] Basophils/100 WBC (Bld) 1.2 % High 0- [facility] Comment on above: Order Comment: UTO F ROM PORT Performed By: #### L 500.4050, L100.0100 ####[facility] [address] [place], [address] Eosinophils/100 WBC (Bld) 4.1 % Normal 0-5 [facility] Comment on above: Order Comment: UTO F ROM PORT Performed By: #### L 500.4050, L100.0100 ####[facility] [address] [place], [address] Erythrocyte distribution width (RBC) [Ratio] 14.0 % Normal 11.6-14.6 [facility] Comment on above: Order Comment: UTO F ROM PORT Performed By: #### L 500.4050, L100.0100 ####[facility] [address] [place], [address] Hematocrit (Bld) [Volume fraction] 36.0 % Low 37-47 [facility] Comment on above: Order Comment: UTO F ROM PORT Performed By: #### L 500.4050, L100.0100 ####[facility] [address] [place], [address] Hemoglobin (Bld) [Mass/Vol] 11.2 g/dL Low 12.0-15.0 [facility] Comment on above: Order Comment: UTO F ROM PORT Performed By: #### L 500.4050, L100.0100 ####[facility] [address] [place], [address] IG% 0.400 Normal 0.0-0.9 [facility] Comment on above: Order Comment: UTO F ROM PORT Result Comment: IG% - Immature Granulocytes (promyelocytes, myelocytes andmetamyelocytes) > 1% indicates that a LEFT SHIFT is Present. Performed By: #### L 500.4050, L100.0100 ####[facility] [address] [place], [address] Lymphocytes/100 WBC (Bld) 26.6 % Normal 19-41 [facility] Comment on above: Order Comment: UTO F ROM PORT Performed By: #### L 500.4050, L100.0100 ####[facility] [address] [place], [address] MCH (RBC) [Entitic mass] 27.7 pg Normal 27.0-32.0 [facility] Comment on above: Order Comment: UTO F ROM PORT Performed By: #### L 500.4050, L100.0100 ####[facility] [address] [place], [address] MCHC (RBC) [Mass/Vol] 31.1 g/dL Low 32-36 [facility] Comment on above: Order Comment: UTO F ROM PORT Performed By: #### L 500.4050, L100.0100 ####[facility] [address] [place], [address] MCV (RBC) [Entitic vol] 89.1 fL Normal 81-99 [facility] Comment on above: Order Comment: UTO F ROM PORT Performed By: #### L 500.4050, L100.0100 ####[facility] [address] [place], [address] Monocytes/100 WBC (Bld) 5.4 % Normal 0-10 [facility] Comment on above: Order Comment: UTO F ROM PORT Performed By: #### L 500.4050, L100.0100 ####[facility] [address] [place], [address] Neutrophils/100 WBC (Bld) 62.3 % Normal 47-70 [facility] Comment on above: Order Comment: UTO F ROM PORT Performed By: #### L 500.4050, L100.0100 ####[facility] [address] [place], [address] Nucleated RBC (Bld) [#/Vol] 0 10*3/uL Normal 0-5 [facility] Comment on above: Order Comment: UTO F ROM PORT Performed By: #### L 500.4050, L100.0100 ####[facility] [address] [place], [address] Platelet mean volume (Bld) [Entitic vol] 9.1 fL Normal 6.2-12.0 [facility] Comment on above: Order Comment: UTO F ROM PORT Performed By: #### L 500.4050, L100.0100 ####[facility] [address] [place], [address] Platelets (Bld) [#/Vol] 227 10*3/uL Normal 150-450 [facility] Comment on above: Order Comment: UTO F ROM PORT Performed By: #### L 500.4050, L100.0100 ####[facility] [address] [place], [address] RBC (Bld) [#/Vol] 4.04 10*6/uL Low 4.2-5.4 [facility] Comment on above: Order Comment: UTO F ROM PORT Performed By: #### L 500.4050, L100.0100 ####[facility] [address] [place], [address] RDW SD 45.7 fl High 35.1-43.9 [facility] Comment on above: Order Comment: UTO F ROM PORT Performed By: #### L 500.4050, L100.0100 ####[facility] [address] [place], [address] WBC (Bld) [#/Vol] 5.2 10*3/uL Normal 4.4-11.0 [facility] Comment on above: Order Comment: UTO F ROM PORT Performed By: #### L 500.4050, L100.0100 ####[facility] [address] [place], [address] Comprehensive Metabolic Prof ilon 06-26-2024 Albumin [Mass/Vol] 4.2 g/dL Normal 3.2-5.0 [facility] Comment on above: Order Comment: UTO F ROM PORT Performed By: #### L 500.4050, L100.0100 ####[facility] [address] [place], [address] Albumin/Globulin [Mass ratio] 1.4 {ratio} Normal 0.9-2.4 [facility] Comment on above: Order Comment: UTO F ROM PORT Performed By: #### L 500.4050, L100.0100 ####[facility] [address] [place], [address] ALK P 139 U/L High 45-117 [facility] Comment on above: Order Comment: UTO F ROM PORT Performed By: #### L 500.4050, L100.0100 ####[facility] [address] [place], [address] ALT [Catalytic activity/Vol] 34 U/L Normal 13-56 [facility] Comment on above: Order Comment: UTO F ROM PORT Performed By: #### L 500.4050, L100.0100 ####[facility] [address] [place], [address] AST [Catalytic activity/Vol] 36 U/L Normal 15-37 [facility] Comment on above: Order Comment: UTO F ROM PORT Performed By: #### L 500.4050, L100.0100 ####[facility] [address] [place], [address] Bilirubin [Mass/Vol] 0.50 mg/dL Normal 0.20-1.00 [facility] Comment on above: Order Comment: UTO F ROM PORT Result Comment: For patients on eltrombopag therapy, use of Dimension [place] TBIL is not recommended. Performed By: #### L 500.4050, L100.0100 ####[facility] [address] [place], [address] BUN/CRE 10.3 RATIO Normal 10-20 [facility] Comment on above: Order Comment: UTO F ROM PORT Performed By: #### L 500.4050, L100.0100 ####[facility] [address] [place], [address] CA,Total 8.6 mg/dL Normal 8.5-10.1 [facility] Comment on above: Order Comment: UTO F ROM PORT Performed By: #### L 500.4050, L100.0100 ####[facility] [address] [place], [address] Chloride [Moles/Vol] 110 mmol/L High 98-107 [facility] Comment on above: Order Comment: UTO F ROM PORT Performed By: #### L 500.4050, L100.0100 ####[facility] [address] [place], [address] CO2 [Moles/Vol] 27.0 mmol/L Normal 21.0-32.0 [facility] Comment on above: Order Comment: UTO F ROM PORT Performed By: #### L 500.4050, L100.0100 ####[facility] [address] [place], [address] Creatinine [Mass/Vol] 0.77 mg/dL Normal 0.55-1.02 [facility] Comment on above: Order Comment: UTO F ROM PORT Result Comment: The validity of the calculated GFR GFRAA in patients over70 years has not been determined. Clinical correlation isessential. Performed By: #### L 500.4050, L100.0100 ####[facility] [address] [place], [address] ECRCL 75.16 ml/min Normal [facility] Comment on above: Order Comment: UTO F ROM PORT Performed By: #### L 500.4050, L100.0100 ####[facility] [address] [place], [address] EST GFR - AA 100 mL/min Normal >60 [facility] Comment on above: Order Comment: UTO F ROM PORT Result Comment: Afri can [place] GFR Calc Performed By: #### L 500.4050, L100.0100 ####[facility] [address] [place], [address] GAP 5 Normal 5-15 [facility] Comment on above: Order Comment: UTO F ROM PORT Performed By: #### L 500.4050, L100.0100 ####[facility] [address] [place], [address] GFR/1.73 sq M.predicted among non-blacks MDRD (S/P/Bld) [Vol rate/Area] 83 mL/min/{1.73_m2} Normal >60 [facility] Comment on above: Order Comment: UTO F ROM PORT Result Comment: Non- GFR Calc Performed By: #### L 500.4050, L100.0100 ####[facility] [address] [place], [address] Globulin (S) [Mass/Vol] 3.0 g/dL Normal 2.2-4.2 [facility] Comment on above: Order Comment: UTO F ROM PORT Performed By: #### L 500.4050, L100.0100 ####[facility] [address] [place], [address] Glucose [Mass/Vol] 101 mg/dL Normal 74-106 [facility] Comment on above: Order Comment: UTO F ROM PORT Result Comment: Fast ing Glucose result from 100 to 125 mg/dLsuggests IMPAIRED HOMEOSTASIS per A.D.A. criteria. Performed By: #### L 500.4050, L100.0100 ####[facility] [address] [place], [address] Potassium [Moles/Vol] 3.6 mmol/L Normal 3.5-5.1 [facility] Comment on above: Order Comment: UTO F ROM PORT Performed By: #### L 500.4050, L100.0100 ####[facility] [address] [place], [address] Sodium [Moles/Vol] 141 mmol/L Normal 136-145 [facility] Comment on above: Order Comment: UTO F ROM PORT Performed By: #### L 500.4050, L100.0100 ####[facility] [address] [place], [address] T PROT 7.2 g/dL Normal 6.4-8.2 [facility] Comment on above: Order Comment: UTO F ROM PORT Performed By: #### L 500.4050, L100.0100 ####[facility] [address] [place], [address] Urea nitrogen [Mass/Vol] 8 mg/dL Normal 7-18 [facility] Comment on above: Order Comment: UTO F ROM PORT Performed By: #### L 500.4050, L100.0100 ####[facility] [address] [place], [address] Estimated glomerular filtrat ion rate (GFR) AmericanOrdered By: Olivia Castillo on 06-26-2024 Estimated GFR (MDRD) Amer 100 mL/min >60 [facility] Comment on above: GFR Calc Oncology Visit Reporton 06-17 Oncology Visit Report Normal [facility] CA 27.29on 05-31-2024 CA 27.29 105.1 U/mL Abnormal 0.0-38.6 [facility] Comment on above: Result Comment: [employer] Immunochemiluminometric Methodology (ICMA)Values obtained with different assay methods or kits cannotbe used interchangeably. Results cannot be interpreted asabsolute evidence of the presence or absence of malignantdisease.Performed at: [facility] [employer] [id number] Director: Robert Montana PhD, Phone: [phone] Performed By: #### L 3100.5040, L500.4050, L501.5200, L100.0100, L501.2300 ####[facility] [address] [place], [address] Basic Metabolic Profile (BMP )on 05-29-2024 BUN Normal 7-18 [facility] Comment on above: Result Comment: DUPL ICATED TO INTERNAL ORDERS Performed By: #### L 500.2500 ####[facility] [address] [place], [address] BUN/CRE Normal 10-20 [facility] Comment on above: Result Comment: DUPL ICATED TO INTERNAL ORDERS Performed By: #### L 500.2500 ####[facility] [address] [place], [address] CA,Total Normal 8.5-10.1 [facility] Comment on above: Result Comment: DUPL ICATED TO INTERNAL ORDERS Performed By: #### L 500.2500 ####[facility] [address] [place], [address] CL Normal 98-107 [facility] Comment on above: Result Comment: DUPL ICATED TO INTERNAL ORDERS Performed By: #### L 500.2500 ####[facility] [address] [place], [address] CO2 Normal 21.0-32.0 [facility] Comment on above: Result Comment: DUPL ICATED TO INTERNAL ORDERS Performed By: #### L 500.2500 ####[facility] [address] [place], [address] CREAT,SERUM Normal 0.55-1.02 [facility] Comment on above: Result Comment: DUPL ICATED TO INTERNAL ORDERS Performed By: #### L 500.2500 ####[facility] [address] [place], [address] EST GFR Normal >60 [facility] Comment on above: Result Comment: DUPL ICATED TO INTERNAL ORDERS Performed By: #### L 500.2500 ####[facility] [address] [place], [address] EST GFR - AA Normal >60 [facility] Comment on above: Result Comment: DUPL ICATED TO INTERNAL ORDERS Performed By: #### L 500.2500 ####[facility] [address] [place], [address] GAP Normal 5-15 [facility] Comment on above: Result Comment: DUPL ICATED TO INTERNAL ORDERS Performed By: #### L 500.2500 ####[facility] [address] [place], [address] GLU Normal 74-106 [facility] Comment on above: Result Comment: DUPL ICATED TO INTERNAL ORDERS Performed By: #### L 500.2500 ####[facility] [address] [place], [address] Potassium Normal 3.5-5.1 [facility] Comment on above: Result Comment: DUPL ICATED TO INTERNAL ORDERS Performed By: #### L 500.2500 ####[facility] [address] [place], [address] Basic Metabolic Profile (BMP) Normal 136-145 [facility] Comment on above: Result Comment: DUPL ICATED TO INTERNAL ORDERS Performed By: #### L 500.2500 ####[facility] [address] [place], [address] CBC W/Diff, Automatedon 05-17 Absolute Lymph 2.07 X10 3/uL Normal 0.83-4.51 [facility] Comment on above: Performed By: #### L 3100.5040, L500.4050, L501.5200, L100.0100, L501.2300 ####[facility] [address] [place], [address] Absolute Neut 5.8 X10 3/uL Normal 2.0-7.7 [facility] Comment on above: Performed By: #### L 3100.5040, L500.4050, L501.5200, L100.0100, L501.2300 ####[facility] [address] [place], [address] Basophils/100 WBC (Bld) 1.0 % Normal 0-1 [facility] Comment on above: Performed By: #### L 3100.5040, L500.4050, L501.5200, L100.0100, L501.2300 ####[facility] [address] [place], [address] Eosinophils/100 WBC (Bld) 3.6 % Normal 0-5 [facility] Comment on above: Performed By: #### L 3100.5040, L500.4050, L501.5200, L100.0100, L501.2300 ####[facility] [address] [place], [address] Erythrocyte distribution width (RBC) [Ratio] 14.5 % Normal 11.6-14.6 [facility] Comment on above: Performed By: #### L 3100.5040, L500.4050, L501.5200, L100.0100, L501.2300 ####[facility] [address] [place], [address] Hematocrit (Bld) [Volume fraction] 37.3 % Normal 37-47 [facility] Comment on above: Performed By: #### L 3100.5040, L500.4050, L501.5200, L100.0100, L501.2300 ####[facility] [address] [place], [address] Hemoglobin (Bld) [Mass/Vol] 11.7 g/dL Low 12.0-15.0 [facility] Comment on above: Performed By: #### L 3100.5040, L500.4050, L501.5200, L100.0100, L501.2300 ####[facility] [address] [place], [address] IG% 0.300 Normal 0.0-0.9 [facility] Comment on above: Result Comment: IG% - Immature Granulocytes (promyelocytes, myelocytes andmetamyelocytes) > 1% indicates that a LEFT SHIFT is Present. Performed By: #### L 3100.5040, L500.4050, L501.5200, L100.0100, L501.2300 ####[facility] [address] [place], [address] Lymphocytes/100 WBC (Bld) 23.4 % Normal 19-41 [facility] Comment on above: Performed By: #### L 3100.5040, L500.4050, L501.5200, L100.0100, L501.2300 ####[facility] [address] [place], [address] MCH (RBC) [Entitic mass] 27.6 pg Normal 27.0-32.0 [facility] Comment on above: Performed By: #### L 3100.5040, L500.4050, L501.5200, L100.0100, L501.2300 ####[facility] [address] [place], [address] MCHC (RBC) [Mass/Vol] 31.4 g/dL Low 32-36 [facility] Comment on above: Performed By: #### L 3100.5040, L500.4050, L501.5200, L100.0100, L501.2300 ####[facility] [address] [place], [address] MCV (RBC) [Entitic vol] 88.0 fL Normal 81-99 [facility] Comment on above: Performed By: #### L 3100.5040, L500.4050, L501.5200, L100.0100, L501.2300 ####[facility] [address] [place], [address] Monocytes/100 WBC (Bld) 5.8 % Normal 0-10 [facility] Comment on above: Performed By: #### L 3100.5040, L500.4050, L501.5200, L100.0100, L501.2300 ####[facility] [address] [place], [address] Neutrophils/100 WBC (Bld) 65.9 % Normal 47-70 [facility] Comment on above: Performed By: #### L 3100.5040, L500.4050, L501.5200, L100.0100, L501.2300 ####[facility] [address] [place], [address] Nucleated RBC (Bld) [#/Vol] 0 10*3/uL Normal 0-5 [facility] Comment on above: Performed By: #### L 3100.5040, L500.4050, L501.5200, L100.0100, L501.2300 ####[facility] [address] [place], [address] Platelet mean volume (Bld) [Entitic vol] 9.2 fL Normal 6.2-12.0 [facility] Comment on above: Performed By: #### L 3100.5040, L500.4050, L501.5200, L100.0100, L501.2300 ####[facility] [address] [place], [address] Platelets (Bld) [#/Vol] 189 10*3/uL Normal 150-450 [facility] Comment on above: Performed By: #### L 3100.5040, L500.4050, L501.5200, L100.0100, L501.2300 ####[facility] [address] [place], [address] RBC (Bld) [#/Vol] 4.24 10*6/uL Normal 4.2-5.4 [facility] Comment on above: Performed By: #### L 3100.5040, L500.4050, L501.5200, L100.0100, L501.2300 ####[facility] [address] [place], [address] RDW SD 46.1 fl High 35.1-43.9 [facility] Comment on above: Performed By: #### L 3100.5040, L500.4050, L501.5200, L100.0100, L501.2300 ####[facility] [address] [place], [address] WBC (Bld) [#/Vol] 8.9 10*3/uL Normal 4.4-11.0 [facility] Comment on above: Performed By: #### L 3100.5040, L500.4050, L501.5200, L100.0100, L501.2300 ####[facility] [address] [place], [address] Comprehensive Metabolic [facility] 05-29-2024 Albumin [Mass/Vol] 4.3 g/dL Normal 3.2-5.0 [facility] Comment on above: Performed By: #### L 3100.5040, L500.4050, L501.5200, L100.0100, L501.2300 ####[facility] [address] [place], [address] Albumin/Globulin [Mass ratio] 1.4 {ratio} Normal 0.9-2.4 [facility] Comment on above: Performed By: #### L 3100.5040, L500.4050, L501.5200, L100.0100, L501.2300 ####[facility] [address] [place], [address] ALK P 137 U/L High 45-117 [facility] Comment on above: Performed By: #### L 3100.5040, L500.4050, L501.5200, L100.0100, L501.2300 ####[facility] [address] [place], [address] ALT [Catalytic activity/Vol] 30 U/L Normal 13-56 [facility] Comment on above: Performed By: #### L 3100.5040, L500.4050, L501.5200, L100.0100, L501.2300 ####[facility] [address] [place], [address] AST [Catalytic activity/Vol] 32 U/L Normal 15-37 [facility] Comment on above: Performed By: #### L 3100.5040, L500.4050, L501.5200, L100.0100, L501.2300 ####[facility] [address] [place], [address] Bilirubin [Mass/Vol] 0.70 mg/dL Normal 0.20-1.00 [facility] Comment on above: Result Comment: For patients on eltrombopag therapy, use of Dimension [place] TBIL is not recommended. Performed By: #### L 3100.5040, L500.4050, L501.5200, L100.0100, L501.2300 ####[facility] [address] [place], [address] BUN/CRE 13.4 RATIO Normal 10-20 [facility] Comment on above: Performed By: #### L 3100.5040, L500.4050, L501.5200, L100.0100, L501.2300 ####[facility] [address] [place], [address] CA,Total 8.8 mg/dL Normal 8.5-10.1 [facility] Comment on above: Performed By: #### L 3100.5040, L500.4050, L501.5200, L100.0100, L501.2300 ####[facility] [address] [place], [address] Chloride [Moles/Vol] 112 mmol/L High 98-107 [facility] Comment on above: Performed By: #### L 3100.5040, L500.4050, L501.5200, L100.0100, L501.2300 ####[facility] [address] [place], [address] CO2 [Moles/Vol] 24.0 mmol/L Normal 21.0-32.0 [facility] Comment on above: Performed By: #### L 3100.5040, L500.4050, L501.5200, L100.0100, L501.2300 ####[facility] [address] [place], [address] Creatinine [Mass/Vol] 0.74 mg/dL Normal 0.55-1.02 [facility] Comment on above: Result Comment: The validity of the calculated GFR GFRAA in patients over70 years has not been determined. Clinical correlation isessential. Performed By: #### L 3100.5040, L500.4050, L501.5200, L100.0100, L501.2300 ####[facility] [address] [place], [address] ECRCL 76.70 ml/min Normal [facility] Comment on above: Performed By: #### L 3100.5040, L500.4050, L501.5200, L100.0100, L501.2300 ####[facility] [address] [place], [address] EST GFR - AA 104 mL/min Normal >60 [facility] Comment on above: Result Comment: Afri can [place] GFR Calc Performed By: #### L 3100.5040, L500.4050, L501.5200, L100.0100, L501.2300 ####[facility] [address] [place], [address] GAP 5 Normal 5-15 [facility] Comment on above: Performed By: #### L 3100.5040, L500.4050, L501.5200, L100.0100, L501.2300 ####[facility] [address] [place], [address] GFR/1.73 sq M.predicted among non-blacks MDRD (S/P/Bld) [Vol rate/Area] 86 mL/min/{1.73_m2} Normal >60 [facility] Comment on above: Result Comment: Non- GFR Calc Performed By: #### L 3100.5040, L500.4050, L501.5200, L100.0100, L501.2300 ####[facility] [address] [place], [address] Globulin (S) [Mass/Vol] 3.0 g/dL Normal 2.2-4.2 [facility] Comment on above: Performed By: #### L 3100.5040, L500.4050, L501.5200, L100.0100, L501.2300 ####[facility] [address] [place], [address] Glucose [Mass/Vol] 64 mg/dL Low 74-106 [facility] Comment on above: Performed By: #### L 3100.5040, L500.4050, L501.5200, L100.0100, L501.2300 ####[facility] [address] [place], [address] Potassium [Moles/Vol] 3.7 mmol/L Normal 3.5-5.1 [facility] Comment on above: Performed By: #### L 3100.5040, L500.4050, L501.5200, L100.0100, L501.2300 ####[facility] [address] [place], [address] Sodium [Moles/Vol] 141 mmol/L Normal 136-145 [facility] Comment on above: Performed By: #### L 3100.5040, L500.4050, L501.5200, L100.0100, L501.2300 ####[facility] [address] [place], [address] T PROT 7.3 g/dL Normal 6.4-8.2 [facility] Comment on above: Performed By: #### L 3100.5040, L500.4050, L501.5200, L100.0100, L501.2300 ####[facility] [address] [place], [address] Urea nitrogen [Mass/Vol] 10 mg/dL Normal 7-18 [facility] Comment on above: Performed By: #### L 3100.5040, L500.4050, L501.5200, L100.0100, L501.2300 ####[facility] [address] [place], [address] Magnesiumon 05-29-2024 Magnesium [Mass/Vol] 2.3 mg/dL Normal 1.6-2.6 [facility] Comment on above: Performed By: #### L 3100.5040, L500.4050, L501.5200, L100.0100, L501.2300 ####[facility] [address] [place], [address] Magnesium measurementOrdered By: Olivia Castillo on 05-29-2024 Magnesium [Mass/Vol] 2.3 mg/dL 1.6-2.6 [facility] Oncology Visit Reporton 05-17 Oncology Visit Report Normal [facility] Phosphoruson 05-29-2024 Phosphate [Mass/Vol] 3.0 mg/dL Normal 2.5-4.9 [facility] Comment on above: Performed By: #### L 3100.5040, L500.4050, L501.5200, L100.0100, L501.2300 ####[facility] [address] [place], [address] Phosphorus measurementOrdere d By: Olivia Castillo on 05-29-2024 Phosphorus Level 3.0 mg/dL 2.5-4.9 [facility] CA 27.29on 05-05-2024 CA 27.29 75.9 U/mL Abnormal 0.0-38.6 [facility] Comment on above: Order Comment: PLEAS E ADD TO BLOOD IN LAB. THANK YOU!! Result Comment: [employer] Immunochemiluminometric Methodology (ICMA)Values obtained with different assay methods or kits cannotbe used interchangeably. Results cannot be interpreted asabsolute evidence of the presence or absence of malignantdisease.Performed at: [facility] [place] [id number] Director: Robert Montana PhD, Phone: [phone] Performed By: #### L 3100.5040 ####[facility] [address] [place], [place], [address] Basic Metabolic Profile (BMP )on 05-01-2024 BUN/CRE 12.9 RATIO Normal - [facility] Comment on above: Performed By: #### L 500.2500 ####[facility] [address] [place], [address] CA,Total 8.8 mg/dL Normal 8.5-10.1 [facility] Comment on above: Performed By: #### L 500.2500 ####[facility] [address] [place], [address] Chloride [Moles/Vol] 111 mmol/L High 98-107 [facility] Comment on above: Performed By: #### L 500.2500 ####[facility] [address] [place], [address] CO2 [Moles/Vol] 26.0 mmol/L Normal 21.0-32.0 [facility] Comment on above: Performed By: #### L 500.2500 ####[facility] [address] [place], [address] Creatinine [Mass/Vol] 0.78 mg/dL Normal 0.55-1.02 [facility] Comment on above: Result Comment: The validity of the calculated GFR GFRAA in patients over70 years has not been determined. Clinical correlation isessential. Performed By: #### L 500.2500 ####[facility] [address] [place], [address] ECRCL 73.84 ml/min Normal [facility] Comment on above: Performed By: #### L 500.2500 ####[facility] [address] [place], [address] EST GFR - AA 100 mL/min Normal >60 [facility] Comment on above: Result Comment: Afri can [place] GFR Calc Performed By: #### L 500.2500 ####[facility] [address] [place], [address] GAP 4 Low 5-15 [facility] Comment on above: Performed By: #### L 500.2500 ####[facility] [address] [place], [address] GFR/1.73 sq M.predicted among non-blacks MDRD (S/P/Bld) [Vol rate/Area] 82 mL/min/{1.73_m2} Normal >60 [facility] Comment on above: Result Comment: Non- GFR Calc Performed By: #### L 500.2500 ####[facility] [address] [place], [address] Glucose [Mass/Vol] 123 mg/dL High 74-106 [facility] Comment on above: Result Comment: Fast ing Glucose result from 100 to 125 mg/dLsuggests IMPAIRED HOMEOSTASIS per A.D.A. criteria. Performed By: #### L 500.2500 ####[facility] [address] [place], [address] Potassium [Moles/Vol] 3.6 mmol/L Normal 3.5-5.1 [facility] Comment on above: Performed By: #### L 500.2500 ####[facility] [address] [place], [address] Sodium [Moles/Vol] 140 mmol/L Normal 136-145 [facility] Comment on above: Performed By: #### L 500.2500 ####[facility] [address] [place], [address] Urea nitrogen [Mass/Vol] 10 mg/dL Normal 7-18 [facility] Comment on above: Performed By: #### L 500.2500 ####[facility] [address] [place], [address] Oncology Visit Reporton 04-16 Oncology Visit Report Normal [facility] Bone Scan Whole Bodyon 04-17 Bone Scan Whole Body Normal [facility] CT Chest, Abd, Pel w/Contras ton 04-12-2024 CT Chest, Abd, Pel w/Contrast Normal [facility] CA 27.29on 04-05-2024 CA 27.29 72.5 U/mL Abnormal 0.0-38.6 [facility] Comment on above: Result Comment: Siem Sinopsys Surgicalaur Immunochemiluminometric Methodology (ICMA)Values obtained with different assay methods or kits cannotbe used interchangeably. Results cannot be interpreted asabsolute evidence of the presence or absence of malignantdisease.Performed at: - [facility] [id number] Director: Robert Montana PhD, Phone: [phone] Performed By: #### L 100.0100, L3100.5040, L500.4050 ####[facility] [address] [place], [address] CBC W/Diff, Automatedon 03-17 Absolute Lymph 1.59 X10 3/uL Normal 0.83-4.51 [facility] Comment on above: Performed By: #### L 100.0100, L3100.5040, L500.4050 ####[facility] [address] [place], [address] Absolute Neut 2.7 X10 3/uL Normal 2.0-7.7 [facility] Comment on above: Performed By: #### L 100.0100, L3100.5040, L500.4050 ####[facility] [address] [place], [address] Basophils/100 WBC (Bld) 1.4 % High 0-1 [facility] Comment on above: Performed By: #### L 100.0100, L3100.5040, L500.4050 ####[facility] [address] [place], [address] Eosinophils/100 WBC (Bld) 6.7 % High 0-5 [facility] Comment on above: Performed By: #### L 100.0100, L3100.5040, L500.4050 ####[facility] [address] [place], [address] Erythrocyte distribution width (RBC) [Ratio] 15.8 % High 11.6-14.6 [facility] Comment on above: Performed By: #### L 100.0100, L3100.5040, L500.4050 ####[facility] [address] [place], [address] Hematocrit (Bld) [Volume fraction] 34.6 % Low 37-47 [facility] Comment on above: Performed By: #### L 100.0100, L3100.5040, L500.4050 ####[facility] [address] [place], [address] Hemoglobin (Bld) [Mass/Vol] 10.9 g/dL Low 12.0-15.0 [facility] Comment on above: Performed By: #### L 100.0100, L3100.5040, L500.4050 ####[facility] [address] [place], [address] IG% 0.200 Normal 0.0-0.9 [facility] Comment on above: Result Comment: IG% - Immature Granulocytes (promyelocytes, myelocytes andmetamyelocytes) > 1% indicates that a LEFT SHIFT is Present. Performed By: #### L 100.0100, L3100.5040, L500.4050 ####[facility] [address] [place], [address] Lymphocytes/100 WBC (Bld) 31.4 % Normal 19-41 [facility] Comment on above: Performed By: #### L 100.0100, L3100.5040, L500.4050 ####[facility] [address] [place], [address] MCH (RBC) [Entitic mass] 27.5 pg Normal 27.0-32.0 [facility] Comment on above: Performed By: #### L 100.0100, L3100.5040, L500.4050 ####[facility] [address] [place], [address] MCHC (RBC) [Mass/Vol] 31.5 g/dL Low 32-36 [facility] Comment on above: Performed By: #### L 100.0100, L3100.5040, L500.4050 ####[facility] [address] [place], [address] MCV (RBC) [Entitic vol] 87.2 fL Normal 81-99 [facility] Comment on above: Performed By: #### L 100.0100, L3100.5040, L500.4050 ####[facility] [address] [place], [address] Monocytes/100 WBC (Bld) 6.9 % Normal 0-10 [facility] Comment on above: Performed By: #### L 100.0100, L3100.5040, L500.4050 ####[facility] [address] [place], [address] Neutrophils/100 WBC (Bld) 53.4 % Normal 47-70 [facility] Comment on above: Performed By: #### L 100.0100, L3100.5040, L500.4050 ####[facility] [address] [place], [address] Nucleated RBC (Bld) [#/Vol] 0 10*3/uL Normal 0-5 [facility] Comment on above: Performed By: #### L 100.0100, L3100.5040, L500.4050 ####[facility] [address] [place], [address] Platelet mean volume (Bld) [Entitic vol] 9.2 fL Normal 6.2-12.0 [facility] Comment on above: Performed By: #### L 100.0100, L3100.5040, L500.4050 ####[facility] [address] [place], [address] Platelets (Bld) [#/Vol] 190 10*3/uL Normal 150-450 [facility] Comment on above: Performed By: #### L 100.0100, L3100.5040, L500.4050 ####[facility] [address] [place], [address] RBC (Bld) [#/Vol] 3.97 10*6/uL Low 4.2-5.4 [facility] Comment on above: Performed By: #### L 100.0100, L3100.5040, L500.4050 ####[facility] [address] [place], [address] RDW SD 50.6 fl High 35.1-43.9 [facility] Comment on above: Performed By: #### L 100.0100, L3100.5040, L500.4050 ####[facility] [address] [place], [address] WBC (Bld) [#/Vol] 5.1 10*3/uL Normal 4.4-11.0 [facility] Comment on above: Performed By: #### L 100.0100, L3100.5040, L500.4050 ####[facility] [address] [place], [address] Comprehensive Metabolic [facility] 04-03-2024 Albumin [Mass/Vol] 4.1 g/dL Normal 3.2-5.0 [facility] Comment on above: Performed By: #### L 100.0100, L3100.5040, L500.4050 ####[facility] [address] [place], [address] Albumin/Globulin [Mass ratio] 1.5 {ratio} Normal 0.9-2.4 [facility] Comment on above: Performed By: #### L 100.0100, L3100.5040, L500.4050 ####[facility] [address] [place], [address] ALK P 123 U/L High 45-117 [facility] Comment on above: Performed By: #### L 100.0100, L3100.5040, L500.4050 ####[facility] [address] [place], [address] ALT [Catalytic activity/Vol] 26 U/L Normal 13-56 [facility] Comment on above: Performed By: #### L 100.0100, L3100.5040, L500.4050 ####[facility] [address] [place], [address] AST [Catalytic activity/Vol] 33 U/L Normal 15-37 [facility] Comment on above: Performed By: #### L 100.0100, L3100.5040, L500.4050 ####[facility] [address] [place], [address] Bilirubin [Mass/Vol] 0.50 mg/dL Normal 0.20-1.00 [facility] Comment on above: Result Comment: For patients on eltrombopag therapy, use of Dimension [place] TBIL is not recommended. Performed By: #### L 100.0100, L3100.5040, L500.4050 ####[facility] [address] [place], [address] BUN/CRE 12.7 RATIO Normal 10-20 [facility] Comment on above: Performed By: #### L 100.0100, L3100.5040, L500.4050 ####[facility] [address] [place], [address] CA,Total 8.8 mg/dL Normal 8.5-10.1 [facility] Comment on above: Performed By: #### L 100.0100, L3100.5040, L500.4050 ####[facility] [address] [place], [address] Chloride [Moles/Vol] 110 mmol/L High 98-107 [facility] Comment on above: Performed By: #### L 100.0100, L3100.5040, L500.4050 ####[facility] [address] [place], [address] CO2 [Moles/Vol] 27.0 mmol/L Normal 21.0-32.0 [facility] Comment on above: Performed By: #### L 100.0100, L3100.5040, L500.4050 ####[facility] [address] [place], [address] Creatinine [Mass/Vol] 0.71 mg/dL Normal 0.55-1.02 [facility] Comment on above: Result Comment: The validity of the calculated GFR GFRAA in patients over70 years has not been determined. Clinical correlation isessential. Performed By: #### L 100.0100, L3100.5040, L500.4050 ####[facility] [address] [place], [address] ECRCL 81.51 ml/min Normal [facility] Comment on above: Performed By: #### L 100.0100, L3100.5040, L500.4050 ####[facility] [address] [place], [address] EST GFR - AA 111 mL/min Normal >60 [facility] Comment on above: Result Comment: Afri can [place] GFR Calc Performed By: #### L 100.0100, L3100.5040, L500.4050 ####[facility] [address] [place], [address] GAP 5 Normal 5-15 [facility] Comment on above: Performed By: #### L 100.0100, L3100.5040, L500.4050 ####[facility] [address] [place], [address] GFR/1.73 sq M.predicted among non-blacks MDRD (S/P/Bld) [Vol rate/Area] 92 mL/min/{1.73_m2} Normal >60 [facility] Comment on above: Result Comment: Non- GFR Calc Performed By: #### L 100.0100, L3100.5040, L500.4050 ####[facility] [address] [place], [address] Globulin (S) [Mass/Vol] 2.8 g/dL Normal 2.2-4.2 [facility] Comment on above: Performed By: #### L 100.0100, L3100.5040, L500.4050 ####[facility] [address] [place], [address] Glucose [Mass/Vol] 79 mg/dL Normal 74-106 [facility] Comment on above: Performed By: #### L 100.0100, L3100.5040, L500.4050 ####[facility] [address] [place], [address] Potassium [Moles/Vol] 3.7 mmol/L Normal 3.5-5.1 [facility] Comment on above: Performed By: #### L 100.0100, L3100.5040, L500.4050 ####[facility] [address] [place], [address] Sodium [Moles/Vol] 143 mmol/L Normal 136-145 [facility] Comment on above: Performed By: #### L 100.0100, L3100.5040, L500.4050 ####[facility] [address] [place], [address] T PROT 6.9 g/dL Normal 6.4-8.2 [facility] Comment on above: Performed By: #### L 100.0100, L3100.5040, L500.4050 ####[facility] [address] [place], [address] Urea nitrogen [Mass/Vol] 9 mg/dL Normal 7-18 [facility] Comment on above: Performed By: #### L 100.0100, L3100.5040, L500.4050 ####[facility] [address] [place], [address] Oncology Visit Reporton 03-17 Oncology Visit Report Normal [facility] Hemoglobin A1c percentageOrd ered By: Olivia Castillo on 03-06-2024 HbA1c (Bld) [Mass fraction] 5.7 % High 3.8-5.6 [facility] Comment on above: Normal < 5.7 % Predi abetic 5.7 - 6.4 % Diabetic >or= 6.5 % Please note range changes. Cholesterol measurementOrder ed By: Neha Luciano on 12-27-2023 Cholesterol [Mass/Vol] 164 mg/dL <200 [facility] Comment on above: <200 mg/dL Desirable 200-240 mg/dL Borderline >240 mg/dL High Risk High density lipoprotein (HD L) measurementOrdered By: Neha Luciano on 12-27-2023 Cholesterol in HDL [Mass/Vol] 56 mg/dL >40 [facility] Comment on above: The drugs N-Acetylcy steine and Metamizole may falsely depress this assay. Reference Range HDL <40 mg/dL Low HDL Cholesterol HDL >or= 60 mg/dL High HDL Cholesterol Lactate dehydrogenase (LDH) measurementOrdered By: Neha Luciano on 12-27-2023 LDH [Catalytic activity/Vol] 205 U/L 84-246 [facility] Low density lipoprotein (LDL ) cholesterol measurementOrdered By: Neha Luciano on 12-27-2023 Cholesterol in LDL [Mass/Vol] 86 mg/dL 0-130 [facility] Triglycerides measurementOrd ered By: Neha Luciano on 12-27-2023 Triglyceride [Mass/Vol] 108 mg/dL <199 [facility] Comment on above: The drugs N-Acetylcy steine and Metamizole may falsely depress this assay.Serum Triglycerides Reference Interval Normal <150 mg/dL Borderline high 150 - 199 mg/dL High 200 - 499 mg/dL Very High > or = 500 mg/dL Very low density lipoprotein (VLDL) cholesterol measurementOrdered By: Neha Luciano on 12-27-2023 Very low density lipoprotein (VLDL) cholesterol measurement 22 mg/dL 5-40 [facility] VLDL Cholesterol 22 mg/dL 5-40 [facility] Bilirubin directOrdered By: Neha Luciano on 12-13-2023 Bilirubin.direct [Mass/Vol] 0.15 mg/dL 0.00-0.30 [facility] Miscellaneous procedureOrder ed By: Olivia Castillo on 11-17-2023 Miscellaneous Test See comment [facility] Comment on above: Sent directly to [facility] per ordering physician. Ferritin measurementOrdered By: Olivia Castillo on 11-11-2023 Ferritin [Mass/Vol] 222 ng/mL 8-252 [facility] Iron (Unsp spec) [Mass/Mass] Ordered By: Olivia Castillo on 11-11-2023 Iron [Mass/Vol] 21 ug/dL Low 50-170 [facility] Iron saturation [Mass fracti on]Ordered By: Olivia Castillo on 11-11-2023 Iron Saturation 5.6 % Low 15.0-55.0 [facility] TIBCOrdered By: Olivia morton on 11-11-2023 Total Iron Binding Capacity 376 ug/dL 250-450 [facility] Vitamin B12 measurementOrder ed By: Olivia Castillo on 11-11-2023 Cobalamin (Vitamin B12) [Mass/Vol] 1426 pg/mL High 211-911 [facility] Absolute lymphocyte countOrd ered By: Olivia Castillo on 07-08-2023 Lymphocytes Auto (Unsp spec) [#/Vol] 1.39 10*3/uL 0.83-4.51 [facility] Automated lymphocyte count a s percentage of total leukocytesOrdered By: Olivia Castillo on 07-08-2023 Lymphocytes/100 WBC Auto (Unsp spec) 19.4 % 19-41 [facility] Basophil percentageOrdered B y: Olivia Castillo on 07-08-2023 Basophils/100 WBC (Bld) 1.3 % 0-1 [facility] Bilirubin [Mass/Vol] 0.60 mg/dL 0.20-1.00 [facility] Comment on above: For patients on eltr ombopag therapy, use of Dimension [place] TBIL is not recommended. Chloride [Moles/Vol] 113 mmol/L 98-107 [facility] Eosinophils/100 WBC (Bld) 1.5 % 0-5 [facility] Glucose [Mass/Vol] 94 mg/dL 74-106 [facility] Hemoglobin (Bld) [Mass/Vol] 11.7 g/dL 12.0-15.0 [facility] Monocytes/100 WBC (Bld) 5.3 % 0-10 [facility] Neutrophils (Bld) [#/Vol] 5.2 10*3/uL 2.0-7.7 [facility] Neutrophils/100 WBC (Bld) 72.1 % 47-70 [facility] Potassium [Moles/Vol] 3.6 mmol/L 3.5-5.1 [facility] Protein [Mass/Vol] 7.3 g/dL 6.4-8.2 [facility] Sodium [Moles/Vol] 141 mmol/L 136-145 [facility] WBC (Bld) [#/Vol] 7.2 10*3/uL 4.4-11.0 [facility] Determination of erythrocyte mean corpuscular volume (MCV)Ordered By: Olivia Castillo on 07-08-2023 MCV (RBC) [Entitic vol] 91.9 fL 81-99 [facility] Erythrocyte distribution wid th ratioOrdered By: Olivia Castillo on 07-08-2023 Erythrocyte distribution width (RBC) [Ratio] 15.6 % 11.6-14.6 [facility] Erythrocyte distribution wid th standard deviationOrdered By: Olivia Castillo on 07-08-2023 Erythrocyte distribution width (RBC) [Entitic vol] 52.2 fL 35.1-43.9 [facility] Hematocrit Auto (Bld) [Volum e fraction]Ordered By: Olivia Castillo on 07-08-2023 Hematocrit (Bld) [Volume fraction] 37.5 % 37-47 [facility] Immature granulocytes/100 WB C Auto (Bld)Ordered By: Olivia Castillo on 07-08-2023 Immature granulocytes/100 WBC (Bld) 0.400 % 0.0-0.9 [facility] Comment on above: IG% - Immature Granu locytes (promyelocytes, myelocytes and metamyelocytes) > 1% indicates that a LEFT SHIFT is Present. Laboratory - Chemistry and C hemistry - challengeOrdered By: Olivia Castillo on 07-08-2023 Albumin/Globulin [Mass ratio] 1.1 {ratio} 0.9-2.4 [facility] ALP [Catalytic activity/Vol] 186 U/L 45-117 [facility] ALT [Catalytic activity/Vol] 23 U/L 13-56 [facility] CO2 [Moles/Vol] 25.0 mmol/L 21.0-32.0 [facility] Globulin (S) [Mass/Vol] 3.5 g/dL 2.2-4.2 [facility] Urea nitrogen/Creatinine [Mass ratio] 12.9 mg/mg 10-20 [facility] Laboratory - Hematology and Cell countsOrdered By: Olivia Castillo on 07-08-2023 MCH (RBC) [Entitic mass] 28.7 pg 27.0-32.0 [facility] MCHC (RBC) [Mass/Vol] 31.2 g/dL 32-36 [facility] Nucleated RBC/100 WBC (Bld) [Ratio] 0 % 0-5 [facility] Platelet mean volume (Bld) [Entitic vol] 9.5 fL 6.2-12.0 [facility] Platelets (Bld) [#/Vol] 255 10*3/uL 150-450 [facility] No Panel InformationOrdered By: Olivia Castillo on 07-08-2023 Estimated Creatinine Clearance Calc 101.80 ml/min [facility] Estimated GFR (MDRD) Amer 151 mL/min >60 [facility] Comment on above: GFR Calc Estimated GFR (MDRD) Non-Af Amer 125 mL/min >60 [facility] Comment on above: Non- GFR Calc RBC Auto (Bld) [#/Vol]Ordere d By: Olivia Castillo on 07-08-2023 RBC (Bld) [#/Vol] 4.08 10*6/uL 4.2-5.4 [facility] Serum or plasma calcium alistair urement (mass/volume)Ordered By: Olivia Castillo on 07-08-2023 Calcium [Mass/Vol] 8.8 mg/dL 8.5-10.1 [facility] Serum or plasma creatinine m easurement (mass/volume)Ordered By: Olivia Castillo on 07-08-2023 Creatinine [Mass/Vol] 0.54 mg/dL 0.55-1.02 [facility] Comment on above: The validity of the calculated GFR & GFRAA in patients over 70 years has not been determined. Clinical correlation is essential. Serum or plasma urea nitroge n measurement (mass/volume)Ordered By: Olivia Castillo on 07-08-2023 Urea nitrogen [Mass/Vol] 7 mg/dL 7-18 [facility] Thin prep Papanicolaou smear with manual screeningOrdered By: [facility] on 07-08-2023 Thin prep Papanicolaou smear with manual screening 3.8 g/dL 3.2-5.0 [facility] Thin prep Papanicolaou smear with manual screening 25 U/L 15-37 [facility] Thin prep Papanicolaou smear with manual screening 3 5-15 [facility] No Panel InformationOrdered By: Olivia Castillo on 06-17-2023 CA 27.29 49.6 U/mL 0.0-38.6 [facility] Comment on above: Siemens Ryposaur Immu nochemiluminometric Methodology (ICMA)Values obtained with different assay methods or kits cannotbe used interchangeably. Results cannot be interpreted asabsolute evidence of the presence or absence of malignantdisease.Performed at: [employer] [facility] [id number] Director: Robert Montana PhD, Phone: [phone] Absolute lymphocyte countOrd ered By: Olivia Castillo on 04-15-2023 Lymphocytes Auto (Unsp spec) [#/Vol] 1.36 10*3/uL 0.83-4.51 [facility] Basophil percentageOrdered B y: Olivia Castillo on 04-15-2023 Basophils/100 WBC (Bld) 1.2 % 0-1 [facility] Bilirubin [Mass/Vol] 0.50 mg/dL 0.20-1.00 [facility] Comment on above: For patients on eltr ombopag therapy, use of Dimension [place] TBIL is not recommended. Chloride [Moles/Vol] 111 mmol/L 98-107 [facility] Eosinophils/100 WBC (Bld) 3.5 % 0-5 [facility] Glucose [Mass/Vol] 84 mg/dL 74-106 [facility] Neutrophils (Bld) [#/Vol] 4.9 10*3/uL 2.0-7.7 [facility] Neutrophils/100 WBC (Bld) 68.0 % 47-70 [facility] Potassium [Moles/Vol] 3.6 mmol/L 3.5-5.1 [facility] Protein [Mass/Vol] 6.9 g/dL 6.4-8.2 [facility] Sodium [Moles/Vol] 142 mmol/L 136-145 [facility] WBC (Bld) [#/Vol] 7.2 10*3/uL 4.4-11.0 [facility] Blood erythrocytes count (nu mber/volume)Ordered By: Olivia Castillo on 04-15-2023 RBC (Bld) [#/Vol] 3.92 10*6/uL 4.2-5.4 [facility] Blood hemoglobin measurement (mass/volume)Ordered By: Olivia Castillo on 04-15-2023 Hemoglobin (Bld) [Mass/Vol] 11.5 g/dL 12.0-15.0 [facility] Blood lymphocytes/100 leukoc ytesOrdered By: Olivia Castillo on 04-15-2023 Lymphocytes/100 WBC (Bld) 18.8 % 19-41 [facility] Blood monocytes/100 leukocyt esOrdered By: Olivia Castillo on 04-15-2023 Monocytes/100 WBC (Bld) 8.2 % 0-10 [facility] Blood platelet mean volumeOr dered By: Olivia Castillo on 04-15-2023 Platelet mean volume (Bld) [Entitic vol] 9.7 fL 6.2-12.0 [facility] Determination of erythrocyte mean corpuscular volume (MCV)Ordered By: Olivia Castillo on 04-15-2023 MCV (RBC) [Entitic vol] 93.9 fL 81-99 [facility] Hematocrit Auto (Bld) [Volum e fraction]Ordered By: [facility] on 04-15-2023 Hematocrit (Bld) [Volume fraction] 36.8 % 37-47 [facility] Laboratory - Chemistry and C hemistry - challengeOrdered By: [facility] Jonathan on 04-15-2023 ALP [Catalytic activity/Vol] 124 U/L 45-117 [facility] ALT [Catalytic activity/Vol] 19 U/L 13-56 [facility] CO2 [Moles/Vol] 27.0 mmol/L 21.0-32.0 [facility] Globulin (S) [Mass/Vol] 3.1 g/dL 2.2-4.2 [facility] Urea nitrogen/Creatinine [Mass ratio] 12.8 mg/mg 10-20 [facility] Laboratory - Hematology and Cell countsOrdered By: [facility] on 04-15-2023 Erythrocyte distribution width (RBC) [Entitic vol] 53.9 fL 35.1-43.9 [facility] Erythrocyte distribution width (RBC) [Ratio] 15.9 % 11.6-14.6 [facility] Immature granulocytes/100 WBC (Bld) 0.300 % 0.0-0.9 [facility] Comment on above: IG% - Immature Granu locytes (promyelocytes, myelocytes and metamyelocytes) > 1% indicates that a LEFT SHIFT is Present. MCH (RBC) [Entitic mass] 29.3 pg 27.0-32.0 [facility] Nucleated RBC/100 WBC (Bld) [Ratio] 0 % 0-5 [facility] MCHC Auto (RBC) [Mass/Vol]Or dered By: [facility] Jonathan on 04-15-2023 MCHC (RBC) [Mass/Vol] 31.3 g/dL 32-36 [facility] No Panel InformationOrdered By: [facility] on 04-15-2023 CA 27.29 44.0 U/mL 0.0-38.6 [facility] Comment on above: Siemens Ryposaur Immu nochemiluminometric Methodology (ICMA)Values obtained with different assay methods or kits cannotbe used interchangeably. Results cannot be interpreted asabsolute evidence of the presence or absence of malignantdisease.Performed at: [facility] [id number] Director: Robert Montana PhD, Phone: [phone] Estimated Creatinine Clearance Calc 101.96 ml/min [facility] Estimated GFR (MDRD) Amer 150 mL/min >60 [facility] Comment on above: GFR Calc Estimated GFR (MDRD) Non-Af Amer 124 mL/min >60 [facility] Comment on above: Non- GFR Calc Platelets bldOrdered By: Timothy Castillo on 04-15-2023 Platelets (Bld) [#/Vol] 186 10*3/uL 150-450 [facility] Serum or plasma albumin alistair urement (mass/volume)Ordered By: Olivia Castillo on 04-15-2023 Albumin [Mass/Vol] 3.8 g/dL 3.2-5.0 [facility] - [place] Serum or plasma albumin/glob ulin mass ratioOrdered By: [facility] on [facility]-15-2023 Albumin/Globulin [Mass ratio] 1.2 {ratio} 0.9-2.4 [facility] Serum or plasma calcium alistair urement (mass/volume)Ordered By: Olivia Castillo on 04-15-2023 Calcium [Mass/Vol] 8.7 mg/dL 8.5-10.1 [facility] [place] Serum or plasma creatinine m easurement (mass/volume)Ordered By: Olivia Castillo on 04-15-2023 Creatinine [Mass/Vol] 0.55 mg/dL 0.55-1.02 [facility] Comment on above: The validity of the calculated GFR & GFRAA in patients over 70 years has not been determined. Clinical correlation is essential. Serum or plasma urea nitroge n measurement (mass/volume)Ordered By: Olivia Castillo on 04-15-2023 Urea nitrogen [Mass/Vol] 7 mg/dL 7-18 [facility] Thin prep Papanicolaou smear with manual screeningOrdered By: Olivia Castillo on 04-15-2023 Thin prep Papanicolaou smear with manual screening 26 U/L 15-37 [facility] Thin prep Papanicolaou smear with manual screening 4 5-15 [facility] Absolute lymphocyte countOrd ered By: Olivia Castillo on 03-25-2023 Lymphocytes Auto (Unsp spec) [#/Vol] 1.45 10*3/uL 0.83-4.51 [facility] Basophil percentageOrdered B y: Olivia Castillo on 03-25-2023 Basophils/100 WBC (Bld) 1.0 % 0-1 [facility] Bilirubin [Mass/Vol] 0.50 mg/dL 0.20-1.00 [facility] Comment on above: For patients on eltr ombopag therapy, use of Dimension [place] TBIL is not recommended. Chloride [Moles/Vol] 111 mmol/L 98-107 [facility] Eosinophils/100 WBC (Bld) 1.3 % 0-5 [facility] Glucose [Mass/Vol] 84 mg/dL 74-106 [facility] [place] Neutrophils (Bld) [#/Vol] 6.1 10*3/uL 2.0-7.7 [facility] Neutrophils/100 WBC (Bld) 74.5 % 47-70 [facility] Potassium [Moles/Vol] 3.8 mmol/L 3.5-5.1 [facility] Protein [Mass/Vol] 6.6 g/dL 6.4-8.2 [facility] [place] Sodium [Moles/Vol] 140 mmol/L 136-145 [facility] [place] WBC (Bld) [#/Vol] 8.2 10*3/uL 4.4-11.0 [facility] [place] Blood erythrocytes count (nu mber/volume)Ordered By: Olivia Castillo on 03-25-2023 RBC (Bld) [#/Vol] 4.00 10*6/uL 4.2-5.4 [facility] Blood hemoglobin measurement (mass/volume)Ordered By: Olivia Castillo on 03-25-2023 Hemoglobin (Bld) [Mass/Vol] 11.7 g/dL 12.0-15.0 [facility] Blood lymphocytes/100 leukoc ytesOrdered By: Olivia Castillo on 03-25-2023 Lymphocytes/100 WBC (Bld) 17.6 % 19-41 [facility] Blood monocytes/100 leukocyt esOrdered By: [facility] on 03-25-2023 Monocytes/100 WBC (Bld) 5.1 % 0-10 [facility] Blood platelet mean volumeOr dered By: Olivia Castillo on 03-25-2023 Platelet mean volume (Bld) [Entitic vol] 9.8 fL 6.2-12.0 [facility] Determination of erythrocyte mean corpuscular volume (MCV)Ordered By: [facility] on 03-25-2023 MCV (RBC) [Entitic vol] 95.3 fL 81-99 [facility] Hematocrit Auto (Bld) [Volum e fraction]Ordered By: [facility] on 03-25-2023 Hematocrit (Bld) [Volume fraction] 38.1 % 37-47 [facility] Laboratory - Chemistry and C hemistry - challengeOrdered By: [facility] Jonathan on 03-25-2023 ALP [Catalytic activity/Vol] 118 U/L 45-117 [facility] ALT [Catalytic activity/Vol] 21 U/L 13-56 [facility] CO2 [Moles/Vol] 24.0 mmol/L 21.0-32.0 [facility] Globulin (S) [Mass/Vol] 3.0 g/dL 2.2-4.2 [facility] Urea nitrogen/Creatinine [Mass ratio] 13.4 mg/mg 10-20 [facility] Laboratory - Hematology and Cell countsOrdered By: [facility] Jonathan on 03-25-2023 Erythrocyte distribution width (RBC) [Entitic vol] 55.9 fL 35.1-43.9 [facility] Erythrocyte distribution width (RBC) [Ratio] 15.9 % 11.6-14.6 [facility] Immature granulocytes/100 WBC (Bld) 0.500 % 0.0-0.9 [facility] Comment on above: IG% - Immature Granu locytes (promyelocytes, myelocytes and metamyelocytes) > 1% indicates that a LEFT SHIFT is Present. MCH (RBC) [Entitic mass] 29.3 pg 27.0-32.0 [facility] Nucleated RBC/100 WBC (Bld) [Ratio] 0 % 0-5 [facility] Auto (RBC) [Mass/Vol]Or dered By: Olivia Castillo on 03-25-2023 MCHC (RBC) [Mass/Vol] 30.7 g/dL 32-36 [facility] No Panel InformationOrdered By: Olivia Castillo on 03-25-2023 Estimated Creatinine Clearance Calc 108.46 ml/min [facility] Estimated GFR (MDRD) Amer 158 mL/min >60 [facility] Comment on above: GFR Calc Estimated GFR (MDRD) Non-Af Amer 131 mL/min >60 [facility] Comment on above: Non- GFR Calc Platelets bldOrdered By: Timothy Castillo on 03-25-2023 Platelets (Bld) [#/Vol] 165 10*3/uL 150-450 [facility] Serum or plasma albumin alistair urement (mass/volume)Ordered By: Olivia Castillo on 03-25-2023 Albumin [Mass/Vol] 3.6 g/dL 3.2-5.0 [facility] [place] Serum or plasma albumin/glob ulin mass ratioOrdered By: Olivia Castillo on 03-25-2023 Albumin/Globulin [Mass ratio] 1.2 {ratio} 0.9-2.4 [facility] Serum or plasma calcium alistair urement (mass/volume)Ordered By: Olivia Castillo on 03-25-2023 Calcium [Mass/Vol] 8.4 mg/dL 8.5-10.1 [facility] [place] Serum or plasma creatinine m easurement (mass/volume)Ordered By: Olivia Castillo on 03-25-2023 Creatinine [Mass/Vol] 0.52 mg/dL 0.55-1.02 [facility] Comment on above: The validity of the calculated GFR & GFRAA in patients over 70 years has not been determined. Clinical correlation is essential. Serum or plasma urea nitroge n measurement (mass/volume)Ordered By: Olivia Castillo on 03-25-2023 Urea nitrogen [Mass/Vol] 7 mg/dL 7-18 [facility] Thin prep Papanicolaou smear with manual screeningOrdered By: Olivia Castillo on 03-25-2023 Thin prep Papanicolaou smear with manual screening 23 U/L 15-37 [facility] Thin prep Papanicolaou smear with manual screening 5 5-15 [facility] No Panel InformationOrdered By: Olivia Castillo on 03-04-2023 CA 27.29 38.3 U/mL 0.0-38.6 [facility] Comment on above: Siemens Centaur Immu nochemiluminometric Methodology (ICMA)Values obtained with different assay methods or kits cannotbe used interchangeably. Results cannot be interpreted asabsolute evidence of the presence or absence of malignantdisease.Performed at: [employer] [facility] [id number] Director: Robert Montana PhD, Phone: [phone] Iron measurement (mass/mass) Ordered By: Olivia Castillo on 01-21-2023 Iron (Unsp spec) [Mass/Mass] 48 ug/dL 50-170 [facility] No Panel InformationOrdered By: Olivia Castillo on 01-21-2023 Total Iron Binding Capacity 343 ug/dL 250-450 [facility] Serum or plasma ferritin karthikeyan surement (mass/volume)Ordered By: Olivia Castillo on 01-21-2023 Ferritin [Mass/Vol] 313 ng/mL 8-252 [facility] Serum or plasma iron saturat ion measurement (mass fraction)Ordered By: Olivia Castillo on 01-21-2023 Iron saturation [Mass fraction] 14.0 % 15.0-55.0 [facility] Absolute lymphocyte countOrd ered By: Olivia Castillo on 12-31-2022 Lymphocytes Auto (Unsp spec) [#/Vol] 1.43 10*3/uL 0.83-4.51 [facility] Basophil percentageOrdered B y: Olivia Castillo on 12-31-2022 Basophils/100 WBC (Bld) 1.1 % 0-1 [facility] Bilirubin [Mass/Vol] 0.50 mg/dL 0.20-1.00 [facility] Comment on above: For patients on eltr ombopag therapy, use of Dimension [place] TBIL is not recommended. Chloride [Moles/Vol] 113 mmol/L 98-107 [facility] Eosinophils/100 WBC (Bld) 2.7 % 0-5 [facility] Glucose [Mass/Vol] 87 mg/dL 74-106 [facility] [place] Neutrophils (Bld) [#/Vol] 4.9 10*3/uL 2.0-7.7 [facility] Neutrophils/100 WBC (Bld) 69.9 % 47-70 [facility] Potassium [Moles/Vol] 3.3 mmol/L 3.5-5.1 [facility] Protein [Mass/Vol] 6.9 g/dL 6.4-8.2 [facility] [place] Sodium [Moles/Vol] 145 mmol/L 136-145 [facility] [place] WBC (Bld) [#/Vol] 7.0 10*3/uL 4.4-11.0 [facility] [place] Blood erythrocytes count (nu mber/volume)Ordered By: Olivia Castillo on 12-31-2022 RBC (Bld) [#/Vol] 3.96 10*6/uL 4.2-5.4 [facility] Blood hemoglobin measurement (mass/volume)Ordered By: Olivia Castillo on 12-31-2022 Hemoglobin (Bld) [Mass/Vol] 11.6 g/dL 12.0-15.0 [facility] Blood lymphocytes/100 leukoc ytesOrdered By: Olivia Castillo on 12-31-2022 Lymphocytes/100 WBC (Bld) 20.5 % 19-41 [facility] Blood monocytes/100 leukocyt esOrdered By: Olivia Castillo on 12-31-2022 Monocytes/100 WBC (Bld) 5.2 % 0-10 [facility] Blood platelet mean volumeOr dered By: Olivia Castilol on 12-31-2022 Platelet mean volume (Bld) [Entitic vol] 9.4 fL 6.2-12.0 [facility] Determination of erythrocyte mean corpuscular volume (MCV)Ordered By: Olivia Castillo on 12-31-2022 MCV (RBC) [Entitic vol] 98.5 fL 81-99 [facility] Hematocrit Auto (Bld) [Volum e fraction]Ordered By: Olivia Castillo on 12-31-2022 Hematocrit (Bld) [Volume fraction] 39.0 % 37-47 [facility] Laboratory - Chemistry and C hemistry - challengeOrdered By: Olivia Castillo on 12-31-2022 ALP [Catalytic activity/Vol] 119 U/L 45-117 [facility] ALT [Catalytic activity/Vol] 20 U/L 13-56 [facility] CO2 [Moles/Vol] 27.0 mmol/L 21.0-32.0 [facility] Globulin (S) [Mass/Vol] 3.0 g/dL 2.2-4.2 [facility] Urea nitrogen/Creatinine [Mass ratio] 14.4 mg/mg 10-20 [facility] Laboratory - Hematology and Cell countsOrdered By: Olivia Castillo on 12-31-2022 Erythrocyte distribution width (RBC) [Entitic vol] 49.1 fL 35.1-43.9 [facility] Erythrocyte distribution width (RBC) [Ratio] 13.5 % 11.6-14.6 [facility] Immature granulocytes/100 WBC (Bld) 0.600 % 0.0-0.9 [facility] Comment on above: IG% - Immature Granu locytes (promyelocytes, myelocytes and metamyelocytes) > 1% indicates that a LEFT SHIFT is Present. MCH (RBC) [Entitic mass] 29.3 pg 27.0-32.0 [facility] Nucleated RBC/100 WBC (Bld) [Ratio] 0 % 0-5 [facility] MCHC Auto (RBC) [Mass/Vol]Or dered By: Olivia Castillo on 12-31-2022 MCHC (RBC) [Mass/Vol] 29.7 g/dL 32-36 [facility] No Panel InformationOrdered By: Olivia Castillo on 12-31-2022 Estimated Creatinine Clearance Calc 92.75 ml/min [facility] Estimated GFR (MDRD) Amer 128 mL/min >60 [facility] Comment on above: GFR Calc Estimated GFR (MDRD) Non-Af Amer 106 mL/min >60 [facility] Comment on above: Non- GFR Calc Platelets bldOrdered By: Timothy Castillo on 12-31-2022 Platelets (Bld) [#/Vol] 251 10*3/uL 150-450 [facility] Serum or plasma albumin alistair urement (mass/volume)Ordered By: Olivia Castillo on 12-31-2022 Albumin [Mass/Vol] 3.9 g/dL 3.2-5.0 [facility] [place] Serum or plasma albumin/glob ulin mass ratioOrdered By: Olivia Castillo on 12-31-2022 Albumin/Globulin [Mass ratio] 1.3 {ratio} 0.9-2.4 [facility] Serum or plasma calcium alistair urement (mass/volume)Ordered By: Olivia Castillo on 12-31-2022 Calcium [Mass/Vol] 8.8 mg/dL 8.5-10.1 [facility] [place] Serum or plasma creatinine m easurement (mass/volume)Ordered By: Olivia Castillo on 12-31-2022 Creatinine [Mass/Vol] 0.63 mg/dL 0.55-1.02 [facility] Comment on above: The validity of the calculated GFR & GFRAA in patients over 70 years has not been determined. Clinical correlation is essential. Serum or plasma urea nitroge n measurement (mass/volume)Ordered By: Olivia Castillo on 12-31-2022 Urea nitrogen [Mass/Vol] 9 mg/dL 7-18 [facility] Thin prep Papanicolaou smear with manual screeningOrdered By: [facility] Jonathan on 12-31-2022 Thin prep Papanicolaou smear with manual screening 18 U/L 15-37 [facility] Thin prep Papanicolaou smear with manual screening 5 5-15 [facility] Absolute lymphocyte countOrd ered By: Olivia Castillo on 12-10-2022 Lymphocytes Auto (Unsp spec) [#/Vol] 1.60 10*3/uL 0.83-4.51 [facility] Basophil percentageOrdered B y: Olivia Castillo on 12-10-2022 Basophils/100 WBC (Bld) 1.0 % 0-1 [facility] Bilirubin [Mass/Vol] 0.40 mg/dL 0.20-1.00 [facility] Comment on above: For patients on eltr ombopag therapy, use of Dimension [place] TBIL is not recommended. Chloride [Moles/Vol] 109 mmol/L 98-107 [facility] Eosinophils/100 WBC (Bld) 3.8 % 0-5 [facility] Glucose [Mass/Vol] 87 mg/dL 74-106 [facility] [place] Neutrophils (Bld) [#/Vol] 4.5 10*3/uL 2.0-7.7 [facility] Neutrophils/100 WBC (Bld) 65.8 % 47-70 [facility] Potassium [Moles/Vol] 4.0 mmol/L 3.5-5.1 [facility] Protein [Mass/Vol] 7.0 g/dL 6.4-8.2 [facility] [place] Sodium [Moles/Vol] 141 mmol/L 136-145 [facility] [place] WBC (Bld) [#/Vol] 6.9 10*3/uL 4.4-11.0 [facility] [place] Blood erythrocytes count (nu mber/volume)Ordered By: Olivia Castillo on 12-10-2022 RBC (Bld) [#/Vol] 3.94 10*6/uL 4.2-5.4 [facility] Blood hemoglobin measurement (mass/volume)Ordered By: Olivia Castillo on 12-10-2022 Hemoglobin (Bld) [Mass/Vol] 12.0 g/dL 12.0-15.0 [facility] Blood lymphocytes/100 leukoc ytesOrdered By: Olivia Castillo on 12-10-2022 Lymphocytes/100 WBC (Bld) 23.3 % 19-41 [facility] Blood monocytes/100 leukocyt esOrdered By: Olivia Castillo on 12-10-2022 Monocytes/100 WBC (Bld) 6.0 % 0-10 [facility] Blood platelet mean volumeOr dered By: Olivia Castillo on 12-10-2022 Platelet mean volume (Bld) [Entitic vol] 9.3 fL 6.2-12.0 [facility] Determination of erythrocyte mean corpuscular volume (MCV)Ordered By: Olivia Castillo on 12-10-2022 MCV (RBC) [Entitic vol] 95.7 fL 81-99 [facility] Hematocrit Auto (Bld) [Volum e fraction]Ordered By: Olivia Castillo on 12-10-2022 Hematocrit (Bld) [Volume fraction] 37.7 % 37-47 [facility] Laboratory - Chemistry and C hemistry - challengeOrdered By: Olivia Castillo on 12-10-2022 ALP [Catalytic activity/Vol] 120 U/L 45-117 [facility] ALT [Catalytic activity/Vol] 25 U/L 13-56 [facility] CO2 [Moles/Vol] 25.0 mmol/L 21.0-32.0 [facility] Globulin (S) [Mass/Vol] 3.2 g/dL 2.2-4.2 [facility] Urea nitrogen/Creatinine [Mass ratio] 18.8 mg/mg 10-20 [facility] Laboratory - Hematology and Cell countsOrdered By: [facility] on 12-10-2022 Erythrocyte distribution width (RBC) [Entitic vol] 45.7 fL 35.1-43.9 [facility] Erythrocyte distribution width (RBC) [Ratio] 13.2 % 11.6-14.6 [facility] Immature granulocytes/100 WBC (Bld) 0.100 % 0.0-0.9 [facility] Comment on above: IG% - Immature Granu locytes (promyelocytes, myelocytes and metamyelocytes) > 1% indicates that a LEFT SHIFT is Present. MCH (RBC) [Entitic mass] 30.5 pg 27.0-32.0 [facility] Nucleated RBC/100 WBC (Bld) [Ratio] 0 % 0-5 [facility] MCHC Auto (RBC) [Mass/Vol]Or dered By: Olivia Castillo on 12-10-2022 MCHC (RBC) [Mass/Vol] 31.8 g/dL 32-36 [facility] No Panel InformationOrdered By: Olivia Castillo on 12-10-2022 CA 27.29 34.8 U/mL 0.0-38.6 [facility] Comment on above: Siemens Centaur Immu nochemiluminometric Methodology (ICMA)Values obtained with different assay methods or kits cannotbe used interchangeably. Results cannot be interpreted asabsolute evidence of the presence or absence of malignantdisease.Performed at: [address] [id number] Director: Robert Montana PhD, Phone: [phone] Estimated Creatinine Clearance Calc 100.04 ml/min [facility] Estimated GFR (MDRD) Amer 138 mL/min >60 [facility] Comment on above: GFR Calc Estimated GFR (MDRD) Non-Af Amer 114 mL/min >60 [facility] Comment on above: Non- GFR Calc Platelets bldOrdered By: Timothy rowe Jonathan on 12-10-2022 Platelets (Bld) [#/Vol] 203 10*3/uL 150-450 [facility] Serum or plasma albumin alistair urement (mass/volume)Ordered By: Olivia Castillo on 12-10-2022 Albumin [Mass/Vol] 3.8 g/dL 3.2-5.0 [facility] [place] Serum or plasma albumin/glob ulin mass ratioOrdered By: Olivia Castillo on 12-10-2022 Albumin/Globulin [Mass ratio] 1.2 {ratio} 0.9-2.4 [facility] Serum or plasma calcium alistair urement (mass/volume)Ordered By: Olivia Castillo on 12-10-2022 Calcium [Mass/Vol] 8.8 mg/dL 8.5-10.1 [facility] [place] Serum or plasma creatinine m easurement (mass/volume)Ordered By: Olivia Castillo on 12-10-2022 Creatinine [Mass/Vol] 0.59 mg/dL 0.55-1.02 [facility] Comment on above: The validity of the calculated GFR & GFRAA in patients over 70 years has not been determined. Clinical correlation is essential. Serum or plasma urea nitroge n measurement (mass/volume)Ordered By: Olivia Castillo on 12-10-2022 Urea nitrogen [Mass/Vol] 11 mg/dL 7-18 [facility] Thin prep Papanicolaou smear with manual screeningOrdered By: Olivia Castillo on 12-10-2022 Thin prep Papanicolaou smear with manual screening 23 U/L 15-37 [facility] Thin prep Papanicolaou smear with manual screening 7 5-15 [facility] Iron measurement (mass/mass) Ordered By: Neha Luciano on 07-23-2022 Iron (Unsp spec) [Mass/Mass] 79 ug/dL 50-170 [facility] No Panel InformationOrdered By: Neha Luciano on 07-23-2022 Total Iron Binding Capacity 295 ug/dL 250-450 [facility] Serum or plasma ferritin karthikeyan surement (mass/volume)Ordered By: Neha Luciano on 07-23-2022 Ferritin [Mass/Vol] 1205 ng/mL 8-252 [facility] Serum or plasma iron saturat ion measurement (mass fraction)Ordered By: Neha Luciano on 07-23-2022 Iron saturation [Mass fraction] 26.8 % 15.0-55.0 [facility] Absolute lymphocyte countOrd ered By: Dr. Castillo on 06-11-2022 Lymphocytes Auto (Unsp spec) [#/Vol] 1.37 10*3/uL 0.83-4.51 [facility] Basophil percentageOrdered B y: Dr. Castillo on 06-11-2022 Basophils/100 WBC (Bld) 1.2 % 0-1 [facility] Bilirubin [Mass/Vol] 0.60 mg/dL 0.20-1.00 [facility] Comment on above: For patients on eltr ombopag therapy, use of Dimension [place] TBIL is not recommended. Chloride [Moles/Vol] 109 mmol/L 98-107 [facility] Eosinophils/100 WBC (Bld) 0.7 % 0-5 [facility] Glucose [Mass/Vol] 88 mg/dL 74-106 [facility] [place] Neutrophils (Bld) [#/Vol] 2.6 10*3/uL 2.0-7.7 [facility] Neutrophils/100 WBC (Bld) 59.6 % 47-70 [facility] Potassium [Moles/Vol] 3.4 mmol/L 3.5-5.1 [facility] Protein [Mass/Vol] 7.2 g/dL 6.4-8.2 [facility] [place] Sodium [Moles/Vol] 143 mmol/L 136-145 [facility] [place] WBC (Bld) [#/Vol] 4.3 10*3/uL 4.4-11.0 [facility] [place] Blood erythrocytes count (nu mber/volume)Ordered By: Dr. Castillo on 06-11-2022 RBC (Bld) [#/Vol] 4.00 10*6/uL 4.2-5.4 [facility] Blood hemoglobin measurement (mass/volume)Ordered By: Dr. Castillo on 06-11-2022 Hemoglobin (Bld) [Mass/Vol] 11.5 g/dL 12.0-15.0 [facility] Blood lymphocytes/100 leukoc ytesOrdered By: Dr. Castillo on 06-11-2022 Lymphocytes/100 WBC (Bld) 32.0 % 19-41 [facility] Blood monocytes/100 leukocyt esOrdered By: Dr. Castillo on 06-11-2022 Monocytes/100 WBC (Bld) 6.3 % 0-10 [facility] Blood platelet mean volumeOr dered By: Dr. Castillo on 06-11-2022 Platelet mean volume (Bld) [Entitic vol] 9.7 fL 6.2-12.0 [facility] Determination of erythrocyte mean corpuscular volume (MCV)Ordered By: Dr. Castillo on 06-11-2022 MCV (RBC) [Entitic vol] 92.8 fL 81-99 [facility] Hematocrit Auto (Bld) [Volum e fraction]Ordered By: Dr. Castillo on 06-11-2022 Hematocrit (Bld) [Volume fraction] 37.1 % 37-47 [facility] Iron measurement (mass/mass) Ordered By: Dr. Castillo on 06-11-2022 Iron (Unsp spec) [Mass/Mass] 50 ug/dL 50-170 [facility] Laboratory - Chemistry and C hemistry - challengeOrdered By: Dr. Castillo on 06-11-2022 ALP [Catalytic activity/Vol] 67 U/L 45-117 [facility] ALT [Catalytic activity/Vol] 25 U/L 13-56 [facility] CO2 [Moles/Vol] 25.0 mmol/L 21.0-32.0 [facility] Globulin (S) [Mass/Vol] 3.2 g/dL 2.2-4.2 [facility] Urea nitrogen/Creatinine [Mass ratio] 14.5 mg/mg 10-20 [facility] - Hematology and Cell countsOrdered By: Dr. Castillo on 06-11-2022 Erythrocyte distribution width (RBC) [Entitic vol] 43.8 fL 35.1-43.9 [facility] Erythrocyte distribution width (RBC) [Ratio] 12.7 % 11.6-14.6 [facility] Immature granulocytes/100 WBC (Bld) 0.200 % 0.0-0.9 [facility] Comment on above: IG% - Immature Granu locytes (promyelocytes, myelocytes and metamyelocytes) > 1% indicates that a LEFT SHIFT is Present. MCH (RBC) [Entitic mass] 28.8 pg 27.0-32.0 [facility] Nucleated RBC/100 WBC (Bld) [Ratio] 0 % 0-5 [facility] MCHC Auto (RBC) [Mass/Vol]Or dered By: Dr. Castillo on 06-11-2022 MCHC (RBC) [Mass/Vol] 31.0 g/dL 32-36 [facility] No Panel InformationOrdered By: Dr. Castillo on 06-11-2022 Estimated Creatinine Clearance Calc 95.51 ml/min [facility] Estimated GFR (MDRD) Amer 130 mL/min >60 [facility] Comment on above: GFR Calc Estimated GFR (MDRD) Non-Af Amer 107 mL/min >60 [facility] Comment on above: Non- GFR Calc Reactive Lymphocytes 1+ [facility] Total Iron Binding Capacity 402 ug/dL 250-450 [facility] Platelets bldOrdered By: Dr. Castillo on 06-11-2022 Platelets (Bld) [#/Vol] 198 10*3/uL 150-450 [facility] Serum or plasma albumin alistair urement (mass/volume)Ordered By: Dr. Castillo on 06-11-2022 Albumin [Mass/Vol] 4.0 g/dL 3.2-5.0 [facility] [place] Serum or plasma albumin/glob ulin mass ratioOrdered By: Dr. Castillo on 06-11-2022 Albumin/Globulin [Mass ratio] 1.2 {ratio} 0.9-2.4 [facility] Serum or plasma calcium alistair urement (mass/volume)Ordered By: Dr. Castillo on 06-11-2022 Calcium [Mass/Vol] 8.5 mg/dL 8.5-10.1 [facility] [place] Serum or plasma creatinine m easurement (mass/volume)Ordered By: Dr. Castillo on 06-11-2022 Creatinine [Mass/Vol] 0.62 mg/dL 0.55-1.02 [facility] Comment on above: The validity of the calculated GFR & GFRAA in patients over 70 years has not been determined. Clinical correlation is essential. Serum or plasma ferritin karthikeyan surement (mass/volume)Ordered By: Dr. Castillo on 06-11-2022 Ferritin [Mass/Vol] 17 ng/mL 8-252 [facility] Serum or plasma iron saturat ion measurement (mass fraction)Ordered By: Dr. Castillo on 06-11-2022 Iron saturation [Mass fraction] 12.4 % 15.0-55.0 [facility] Serum or plasma urea nitroge n measurement (mass/volume)Ordered By: Dr. Castillo on 06-11-2022 Urea nitrogen [Mass/Vol] 9 mg/dL 7-18 [facility] Thin prep Papanicolaou smear with manual screeningOrdered By: Dr. Castillo on 06-11-2022 Thin prep Papanicolaou smear with manual screening 23 U/L 15-37 [facility] Thin prep Papanicolaou smear with manual screening 9 5-15 [facility] Basophil percentageOrdered B y: Dr. Castillo on 05-19-2022 Basophil percentage 4.5 mg/dL 2.5-4.9 [facility] Laboratory - Chemistry and C hemistry - challengeOrdered By: Dr. Castillo on 05-19-2022 Magnesium [Mass/Vol] 1.9 mg/dL 1.6-2.6 [facility] No Panel InformationOrdered By: Dr. Castillo on 05-19-2022 CA 27.29 45.9 U/mL 0.0-38.6 [facility] Comment on above: Siemens Ryposaur Immu nochemiluminometric Methodology (ICMA)Values obtained with different assay methods or kits cannotbe used interchangeably. Results cannot be interpreted asabsolute evidence of the presence or absence of malignantdisease.Performed at: [facility] [employer] [id number] [place], [place] [id number] Director: Robert Montana PhD, Phone: [phone] Basophil percentageon 2021 Chloride [Moles/Vol] 108 mmol/L 98-107 [facility] Work Phone: Glucose [Mass/Vol] 152 mg/dL 74-106 [facility] Work Phone: Comment on above: Fasting Glucose resu lt greater than or equal to 126 mg/dL suggests DIABETES MELLITUS per A.D.A. criteria. Potassium [Moles/Vol] 3.5 mmol/L 3.5-5.1 [facility] Work Phone: Sodium [Moles/Vol] 140 mmol/L 136-145 [facility] Work Phone: Laboratory - Chemistry and C hemistry - challengeon 04-23-2022 CO2 [Moles/Vol] 28.0 mmol/L 21.0-32.0 [facility] Work Phone: Magnesium [Mass/Vol] 2.1 mg/dL 1.6-2.6 [facility] Work Phone: Urea nitrogen/Creatinine [Mass ratio] 8.7 mg/mg 10-20 [facility] Work Phone: No Panel Informationon 04-23 Estimated Creatinine Clearance Calc 64.37 ml/min [facility] Work Phone: Estimated GFR (MDRD) Amer 83 mL/min >60 [facility] Work Phone: Comment on above: GFR Calc Estimated GFR (MDRD) Non-Af Amer 69 mL/min >60 [facility] Work Phone: Comment on above: Non- GFR Calc Serum or plasma calcium alistair urement (mass/volume)on 04-23-2022 Calcium [Mass/Vol] 9.1 mg/dL 8.5-10.1 [facility] Work Phone: Serum or plasma creatinine m easurement (mass/volume)on 04-23-2022 Creatinine [Mass/Vol] 0.92 mg/dL 0.55-1.02 [facility] Work Phone: Comment on above: The validity of the calculated GFR & GFRAA in patients over 70 years has not been determined. Clinical correlation is essential. Serum or plasma urea nitroge n measurement (mass/volume)on 04-23-2022 Urea nitrogen [Mass/Vol] 8 mg/dL 7-18 [facility] Work Phone: Thin prep Papanicolaou smear with manual screeningon 04-23-2022 Thin prep Papanicolaou smear with manual screening 4 5-15 [facility] Work Phone: Absolute lymphocyte counton 04-16-2022 Lymphocytes Auto (Unsp spec) [#/Vol] 1.26 10*3/uL 0.83-4.51 [facility] Work Phone: Basophil percentageon 2021 Basophils/100 WBC (Bld) 0.7 % 0-1 [facility] Work Phone: Bilirubin [Mass/Vol] 1.00 mg/dL 0.20-1.00 [facility] Work Phone: Comment on above: For patients on eltr ombopag therapy, use of Dimension [place] TBIL is not recommended. Eosinophils/100 WBC (Bld) 1.3 % 0-5 [facility] Work Phone: Neutrophils (Bld) [#/Vol] 3.5 10*3/uL 2.0-7.7 [facility] Work Phone: Neutrophils/100 WBC (Bld) 65.5 % 47-70 [facility] Work Phone: Protein [Mass/Vol] 7.6 g/dL 6.4-8.2 [facility] Work Phone: WBC (Bld) [#/Vol] 5.4 10*3/uL 4.4-11.0 [facility] Work Phone: Blood erythrocytes count (nu mber/volume)on 04-16-2022 RBC (Bld) [#/Vol] 3.75 10*6/uL 4.2-5.4 [facility] Work Phone: Blood hemoglobin measurement (mass/volume)on 04-16-2022 Hemoglobin (Bld) [Mass/Vol] 11.3 g/dL 12.0-15.0 [facility] Work Phone: Blood lymphocytes/100 leukoc yteson 04-16-2022 Lymphocytes/100 WBC (Bld) 23.4 % 19-41 [facility] Work Phone: Blood monocytes/100 leukocyt eson 04-16-2022 Monocytes/100 WBC (Bld) 8.7 % 0-10 [facility] Work Phone: Blood platelet mean volumeon 04-16-2022 Platelet mean volume (Bld) [Entitic vol] 9.5 fL 6.2-12.0 [facility] Work Phone: Determination of erythrocyte mean corpuscular volume (MCV)on 04-16-2022 MCV (RBC) [Entitic vol] 94.7 fL 81-99 [facility] Work Phone: Hematocrit Auto (Bld) [Volum e fraction]on 04-16-2022 Hematocrit (Bld) [Volume fraction] 35.5 % 37-47 [facility] Work Phone: Laboratory - Chemistry and C hemistry - challengeon 04-16-2022 ALP [Catalytic activity/Vol] 77 U/L 45-117 [facility] Work Phone: ALT [Catalytic activity/Vol] 18 U/L 13-56 [facility] Work Phone: Globulin (S) [Mass/Vol] 3.3 g/dL 2.2-4.2 [facility] Work Phone: Laboratory - Hematology and Cell countson 04-16-2022 Erythrocyte distribution width (RBC) [Entitic vol] 53.0 fL 35.1-43.9 [facility] Work Phone: Erythrocyte distribution width (RBC) [Ratio] 15.1 % 11.6-14.6 [facility] Work Phone: Immature granulocytes/100 WBC (Bld) 0.400 % 0.0-0.9 [facility] Work Phone: [phone] Comment on above: IG% - Immature Granu locytes (promyelocytes, myelocytes and metamyelocytes) > 1% indicates that a LEFT SHIFT is Present. MCH (RBC) [Entitic mass] 30.1 pg 27.0-32.0 [facility] Work Phone: Nucleated RBC/100 WBC (Bld) [Ratio] 0.9 % 0-5 [facility] Work Phone: [phone] MCHC Auto (RBC) [Mass/Vol]on 04-16-2022 MCHC (RBC) [Mass/Vol] 31.8 g/dL 32-36 [facility] Work Phone: No Panel Informationon 04-16 CA 27.29 48.0 U/mL 0.0-38.6 [facility] Work Phone: Comment on above: Siemens Centaur Immu nochemiluminometric Methodology (ICMA)Values obtained with different assay methods or kits cannotbe used interchangeably. Results cannot be interpreted asabsolute evidence of the presence or absence of malignantdisease.Performed at: [address] [id number] Director: Robert Montana PhD, Phone: [phone] Platelets bldon 04-16-2022 Platelets (Bld) [#/Vol] 237 10*3/uL 150-450 [facility] Work Phone: Serum or plasma albumin alistair urement (mass/volume)on 04-16-2022 Albumin [Mass/Vol] 4.3 g/dL 3.2-5.0 [facility] Work Phone: Serum or plasma albumin/glob ulin mass ratioon 04-16-2022 Albumin/Globulin [Mass ratio] 1.3 {ratio} 0.9-2.4 [facility] Work Phone: Thin prep Papanicolaou smear with manual screeningon 04-16-2022 Thin prep Papanicolaou smear with manual screening 18 U/L 15-37 [facility] Work Phone: Basophil percentageon 2021 Basophil percentage 3.3 mg/dL 2.5-4.9 [facility] Work Phone: Folate [Mass/Vol]Ordered By: Olivia Castillo on 03-26-2022 Folate 12.80 ng/mL 3.1-55.4 [facility] Iron measurement (mass/mass) on 03-26-2022 Iron (Unsp spec) [Mass/Mass] 59 ug/dL 50-170 [facility] Work Phone: Laboratory - Chemistry and C hemistry - challengeOrdered By: Dr. Castillo on 03-26-2022 Cobalamin (Vitamin B12) [Mass/Vol] 455 pg/mL 211-911 [facility] No Panel Informationon 03-26 Total Iron Binding Capacity 472 ug/dL 250-450 [facility] Work Phone: Serum or plasma ferritin karthikeyan surement (mass/volume)on 03-26-2022 Ferritin [Mass/Vol] 16 ng/mL 8-252 [facility] Work Phone: Serum or plasma folate measu rement (mass/volume)Ordered By: Dr. Castillo on 03-26-2022 Folate [Mass/Vol] 12.80 ng/mL 3.1-55.4 [facility] Serum or plasma iron saturat ion measurement (mass fraction)on 03-26-2022 Iron saturation [Mass fraction] 12.5 % 15.0-55.0 [facility] Work Phone: CNPYudi 12-16-2021 CNPN Telephone (HEMAWS) -- GRACIELA HAYWOOD Richy ([id number]) 1970 F Date Time Provider Department 12/16/21 TOMMY FRENCH During your visit today, we recorded the following information about you: Diana Harley 12/16/2021 4:53 PM Signed Pt called regarding future appointments. She has transferred care to the infusion center at the [facility] and will no longer need scheduled here. Tommy French DO 12/17/2021 8:07 AM Signed Yes, I was aware of that. Tommy French DO Allergies As of Date: 12/16/2021 Noted Allergy Reaction PERCOCET (OXYCODONE-ACETAMINOPHEN)1 11 - Vomiting Date Reviewed: 10/27/2021 Reviewed by: Essie Castillo RN - Fully Assessed Reason for Visit: Appointment Cancelled [1023] Prescriptions as of 12/17/2021 - KLOR-CON M20 20 mEq tablet TAKE 1 TABLET TWICE A DAY - capecitabine (XELODA) 500 mg tablet TAKE 2 TABLETS (1,000 MG) BY MOUTH TWICE DAILY FOR 14 DAYS ON AND 7 DAYS OFF EVERY 21 DAY CYCLE. - iv contrast (will be provided with [...] heparin allergy). De-access port on treatment completion. Problem List As Of Date 12/16/2021 Noted Resolved Left breast mass [N63.20] 08/30/2015 09/12/2015 Breast cancer metastasized to axillary lymph no*09/12/2015 Cancer of overlapping sites of left female domo*09/12/2015 02/08/2017 Bone metastases (HCC) [C79.51] 01/15/2016 Malignant neoplasm of right kidney, except jessie*02/01/2017 Malignant neoplasm of overlapping sites of left*02/05/2017 02/08/2017 Malignant neoplasm of overlapping sites of left*02/08/2017 Renal neoplasm [D49.519] 03/15/2017 10/21/2017 Liver metastasis (HCC) [C78.7] 10/21/2017 Dehydration [E86.0] 03/09/2018 Stomatitis and mucositis [K12.1, K12.30] 03/09/2018 Drug rash [L27.0] 09/13/2020 Encounter Status:Closed by TOMMY FRENCH on 12/17/21 [facility] Absolute lymphocyte counton 12-08-2021 Lymphocytes Auto (Unsp spec) [#/Vol] 1.46 10*3/uL 0.83-4.51 [facility] Work Phone: Basophil percentageon 2021 Basophils/100 WBC (Bld) 1.2 % 0-1 [facility] Work Phone: Bilirubin [Mass/Vol] 0.60 mg/dL 0.20-1.00 [facility] Work Phone: Comment on above: For patients on eltr ombopag therapy, use of Dimension [place] TBIL is not recommended. Chloride [Moles/Vol] 109 mmol/L 98-107 [facility]: Eosinophils/100 WBC (Bld) 3.2 % 0-5 [facility] Work Phone: Glucose [Mass/Vol] 75 mg/dL 74-106 [facility] Work Phone: Neutrophils (Bld) [#/Vol] 3.5 10*3/uL 2.0-7.7 [facility] Work Phone: Neutrophils/100 WBC (Bld) 62.0 % 47-70 [facility] Work Phone: Potassium [Moles/Vol] 3.8 mmol/L 3.5-5.1 [facility] Work Phone: Protein [Mass/Vol] 7.4 g/dL 6.4-8.2 [facility] Work Phone: Sodium [Moles/Vol] 142 mmol/L 136-145 [facility] Work Phone: WBC (Bld) [#/Vol] 5.7 10*3/uL 4.4-11.0 [facility] Work Phone: Blood erythrocytes count (nu mber/volume)on 12-08-2021 RBC (Bld) [#/Vol] 3.99 10*6/uL 4.2-5.4 [facility]: Blood hemoglobin measurement (mass/volume)on 12-08-2021 Hemoglobin (Bld) [Mass/Vol] 12.2 g/dL 12.0-15.0 [facility] Work Phone: Blood lymphocytes/100 leukoc yteson 12-08-2021 Lymphocytes/100 WBC (Bld) 25.7 % 19-41 [facility] Work Phone: Blood monocytes/100 leukocyt eson 12-08-2021 Monocytes/100 WBC (Bld) 7.7 % 0-10 [facility] Work Phone: Blood platelet mean volumeon 12-08-2021 Platelet mean volume (Bld) [Entitic vol] 9.9 fL 6.2-12.0 [facility] Work Phone: Determination of erythrocyte mean corpuscular volume (MCV)on 12-08-2021 MCV (RBC) [Entitic vol] 97.7 fL 81-99 [facility] Work Phone: Hematocrit Auto (Bld) [Volum e fraction]on 12-08-2021 Hematocrit (Bld) [Volume fraction] 39.0 % 37-47 [facility] Work Phone: Laboratory - Chemistry and C hemistry - challengeon 12-08-2021 ALP [Catalytic activity/Vol] 71 U/L 45-117 [facility] Work Phone: ALT [Catalytic activity/Vol] 16 U/L 13-56 [facility] Work Phone: CO2 [Moles/Vol] 29.0 mmol/L 21.0-32.0 [facility] Work Phone: Globulin (S) [Mass/Vol] 3.4 g/dL 2.2-4.2 [facility] Work Phone: Urea nitrogen/Creatinine [Mass ratio] 14.8 mg/mg 10-20 [facility] Work Phone: Laboratory - Hematology and Cell countson 12-08-2021 Erythrocyte distribution width (RBC) [Entitic vol] 50.6 fL 35.1-43.9 [facility] Work Phone: Erythrocyte distribution width (RBC) [Ratio] 13.9 % 11.6-14.6 [facility] Work Phone: Immature granulocytes/100 WBC (Bld) 0.200 % 0.0-0.9 [facility] Work Phone: Comment on above: IG% - Immature Granu locytes (promyelocytes, myelocytes and metamyelocytes) > 1% indicates that a LEFT SHIFT is Present. MCH (RBC) [Entitic mass] 30.6 pg 27.0-32.0 [facility] Work Phone: Nucleated RBC/100 WBC (Bld) [Ratio] 0 % 0-5 [facility] Work Phone: MCHC Auto (RBC) [Mass/Vol]on 12-08-2021 MCHC (RBC) [Mass/Vol] 31.3 g/dL 32-36 [facility] Work Phone: No Panel Informationon 12-08 CA 15-3 Antigen 16.9 U/mL 0.0-25.0 [facility] Work Phone: Comment on above: [employer] El ectrochemiluminescence Immunoassay(ECLIA)Values obtained with different assay methods or kits cannotbe used interchangeably. Results cannot be interpreted asabsolute evidence of the presence or absence of malignantdisease.Performed at: [facility] [id number] Director: Robert Montana PhD, Phone: [phone] CA 27.29 16.6 U/mL 0.0-38.6 [facility] Work Phone: Comment on above: Siemens Centaur Immu nochemiluminometric Methodology (ICMA)Values obtained with different assay methods or kits cannotbe used interchangeably. Results cannot be interpreted asabsolute evidence of the presence or absence of malignantdisease. Estimated GFR (MDRD) Amer 95 mL/min >60 [facility] Work Phone: Comment on above: GFR Calc Estimated GFR (MDRD) Non-Af Amer 79 mL/min >60 [facility] Work Phone: Comment on above: Non- GFR Calc Platelets bldon 12-08-2021 Platelets (Bld) [#/Vol] 185 10*3/uL 150-450 [facility] Work Phone: Serum or plasma albumin alistair urement (mass/volume)on 12-08-2021 Albumin [Mass/Vol] 4.0 g/dL 3.2-5.0 [facility] Work Phone: Serum or plasma albumin/glob ulin mass ratioon 12-08-2021 Albumin/Globulin [Mass ratio] 1.2 {ratio} 0.9-2.4 [facility] Work Phone: Serum or plasma calcium alistair urement (mass/volume)on 12-08-2021 Calcium [Mass/Vol] 9.5 mg/dL 8.5-10.1 [facility] Work Phone: Serum or plasma creatinine m easurement (mass/volume)on 12-08-2021 Creatinine [Mass/Vol] 0.81 mg/dL 0.55-1.02 [facility] Work Phone: Comment on above: The validity of the calculated GFR & GFRAA in patients over 70 years has not been determined. Clinical correlation is essential. Serum or plasma urea nitroge n measurement (mass/volume)on 12-08-2021 Urea nitrogen [Mass/Vol] 12 mg/dL 7-18 [facility] Work Phone: Thin prep Papanicolaou smear with manual screeningon 12-08-2021 Thin prep Papanicolaou smear with manual screening 17 U/L 15-37 [facility] Work Phone: Thin prep Papanicolaou smear with manual screening 4 5-15 [facility] Work Phone: CBC W Auto Differential pane l (Bld)on 10-27-2021 Basophils (Bld) [#/Vol] 0.04 10*3/uL Normal <0.11 [facility] Comment on above: Order Comment: Speci men Type: BLOOD SPECIMENOrdering Facility: [facility] Address: [address] [place] [id number] Performed By: #### 5 7021-8 ####[facility] HOSPITALKaris [id number] [place] [id number] [place] Basophils/100 WBC (Bld) 0.8 % Normal [facility] Comment on above: Order Comment: Speci men Type: BLOOD SPECIMENOrdering Facility: [facility] Address: [address] [place] [address] Performed By: #### 5 7021-8 ####[facility] SAUNDRATAVARESLIA [id number] [place] [address] [place] Differential cell count method Nom (Bld) Auto Normal [facility] Comment on above: Order Comment: Speci men Type: BLOOD SPECIMENOrdering Facility: [facility] Address: [address] [place] [address] Performed By: #### 5 7021-8 ####[facility] DONISJOSE RAULLIA [id number] [place] [address] [place] Eosinophils (Bld) [#/Vol] 0.07 10*3/uL Normal <0.46 [facility] Comment on above: Order Comment: Speci men Type: BLOOD SPECIMENOrdering Facility: [facility] Address: [address] [place] [address] Performed By: #### 5 7021-8 ####[facility] KISSIMMEETAVARESLIA [id number] [place] [address] [place] Eosinophils/100 WBC (Bld) 1.4 % Normal [facility] Comment on above: Order Comment: Speci men Type: BLOOD SPECIMENOrdering Facility: [facility] Address: [address] [place] [address] Performed By: #### 5 7021-8 ####[facility] DONISWTAVARESLIA [id number] [place] [address] [place] Erythrocyte distribution width (RBC) [Ratio] 15.9 % High 11.5-15.0 [facility] Comment on above: Order Comment: Speci men Type: BLOOD SPECIMENOrdering Facility: [facility] Address: [address] [place] [address] Performed By: #### 5 7021-8 ####[facility] HOSPITALLIA [id number] [place] [address] [place] Hematocrit (Bld) [Volume fraction] 35.6 % Low 36.0-46.0 [facility] Comment on above: Order Comment: Speci men Type: BLOOD SPECIMENOrdering Facility: [facility] Address: [address] [place] [address] Performed By: #### 5 7021-8 ####[facility] KISSIMMEE [id number] [place] [address] [place] Hemoglobin (Bld) [Mass/Vol] 11.4 g/dL Low 11.5-15.5 [facility] Comment on above: Order Comment: Speci men Type: BLOOD SPECIMENOrdering Facility: [facility] Address: [address] [place] [address] Performed By: #### 5 7021-8 ####[facility] KISSIMMEE [id number] [address] OF [facility] IMMATURE GRAN % 0.2 % Normal [facility] Comment on above: Order Comment: Speci men Type: BLOOD SPECIMENOrdering Facility: [facility] Address: [address] [place] [address] Performed By: #### 5 7021-8 ####[facility] K[facility]IM[facility]E [id number] [place] [address] [place] IMMATURE GRAN ABS <0.03 Normal <0.10 [facility] Comment on above: Order Comment: Speci men Type: BLOOD SPECIMENOrdering Facility: [facility] Address: [address] [place] [address] Performed By: #### 5 7021-8 ####[facility] KISSIMMEENCLIA [id number] [place] [address] [place] Lymphocytes (Bld) [#/Vol] 1.15 10*3/uL Normal 1.00-4.00 [facility] Comment on above: Order Comment: Speci men Type: BLOOD SPECIMENOrdering Facility: [facility] Address: [address] [place] [address] Performed By: #### 5 7021-8 ####[facility]EN[facility] [id number] [place] [address] [place] Lymphocytes/100 WBC (Bld) 23.5 % Normal [facility] Comment on above: Order Comment: Speci men Type: BLOOD SPECIMENOrdering Facility: [facility] Address: [address] [place] [address] Performed By: #### 5 7021-8 ####[facility] [id number] [place] [address] [place] MCH (RBC) [Entitic mass] 30.5 pg Normal 26.0-34.0 [facility] Comment on above: Order Comment: Speci men Type: BLOOD SPECIMENOrdering Facility: [facility] Address: [address] [place] [address] Performed By: #### 5 7021-8 ####[facility] [id number] [place] [address] [place] MCHC (RBC) [Mass/Vol] 32.0 g/dL Normal 30.5-36.0 [facility] Comment on above: Order Comment: Speci men Type: BLOOD SPECIMENOrdering Facility: [facility] Address: [address] [place] [address] Performed By: #### 5 7021-8 ####[facility] [id number] [place] [address] [place] MCV (RBC) [Entitic vol] 95.2 fL Normal 80.0-100.0 [facility] Comment on above: Order Comment: Speci men Type: BLOOD SPECIMENOrdering Facility: [facility] Address: [address] [place] [address] Performed By: #### 5 7021-8 ####[facility] DONISJUANA [id number] [place] [address] [place] Monocytes (Bld) [#/Vol] 0.35 10*3/uL Normal <0.87 [facility] Comment on above: Order Comment: Speci men Type: BLOOD SPECIMENOrdering Facility: [facility] Address: [address] [place] [address] Performed By: #### 5 7021-8 ####[facility] [id number] [place] [address] [place] Monocytes/100 WBC (Bld) 7.1 % Normal [facility] Comment on above: Order Comment: Speci men Type: BLOOD SPECIMENOrdering Facility: [facility] Address: [address] [place] [address] Performed By: #### 5 7021-8 ####[facility] KISSIMMEENCA [id number] [place] [address] [place] Neutrophils (Bld) [#/Vol] 3.28 10*3/uL Normal 1.45-7.50 [facility] Comment on above: Order Comment: Speci men Type: BLOOD SPECIMENOrdering Facility: [facility] Address: [address] [place] [address] Performed By: #### 5 7021-8 ####[facility] KISSIMMEENCLIA [id number] [place] [address] [place] Neutrophils/100 WBC (Bld) 67.0 % Normal [facility] Comment on above: Order Comment: Speci men Type: BLOOD SPECIMENOrdering Facility: [facility] Address: [address] [place] [address] Performed By: #### 5 7021-8 ####[facility] PERLIA [id number] [place] [address] [place] Nucleated RBC (Bld) [#/Vol] 10*3/uL Normal <0.01 [facility] Comment on above: Order Comment: Speci men Type: BLOOD SPECIMENOrdering Facility: [facility] Address: [address] [place] [address] Performed By: #### 5 7021-8 ####[facility] KISSIMMEERANDALLA [id number] [place] [address] [place] Nucleated RBC/100 WBC (Bld) [Ratio] 0.0 /100 WBC Normal [facility] Comment on above: Order Comment: Speci men Type: BLOOD SPECIMENOrdering Facility: [facility] Address: [address] [place] [address] Performed By: #### 5 7021-8 ####[facility] KISSIMMEETAVARESLIA [id number] [place] [address] [place] Platelet mean volume (Bld) [Entitic vol] 9.5 fL Normal 9.0-12.7 [facility] Comment on above: Order Comment: Speci men Type: BLOOD SPECIMENOrdering Facility: [facility] Address: [address] [place] [address] Performed By: #### 5 7021-8 ####[facility] KISSIMMEERANDALLA [id number] [place] [address] [place] Platelets (Bld) [#/Vol] 182 10*3/uL Normal 150-400 [facility] Comment on above: Order Comment: Speci men Type: BLOOD SPECIMENOrdering Facility: [facility] Address: [address] [place] [address] Performed By: #### 5 7021-8 ####[facility] KISSIMMEENCRANDELL [id number] [place] [address] [place] RBC (Bld) [#/Vol] 3.74 10*6/uL Low 3.90-5.20 [facility] Comment on above: Order Comment: Speci men Type: BLOOD SPECIMENOrdering Facility: [facility] Address: [address] [place] [address] Performed By: #### 5 7021-8 ####[facility] [id number] [place] [address] [place] WBC (Bld) [#/Vol] 4.90 10*3/uL Normal 3.70-11.00 [facility] Comment on above: Order Comment: Speci men Type: BLOOD SPECIMENOrdering Facility: [facility] Address: [address] [place] [address] Performed By: #### 5 7021-8 ####[facility] [id number] [place] [address] [place] Abs Immature Gran <0.03 <0.10 k/uL [facility] Basophils (Bld) [#/Vol] 0.04 10*3/uL <0.11 k/uL [facility] [facility] Basophils/100 WBC (Bld) 0.8 % [facility] Differential cell count method Nom (Bld) Auto [facility] Eosinophils (Bld) [#/Vol] 0.07 10*3/uL <0.46 k/uL [facility] Eosinophils/100 WBC (Bld) 1.4 % [facility] Erythrocyte distribution width (RBC) [Ratio] 15.9 % High 11.5 - 15.0 % [facility] Hematocrit (Bld) [Volume fraction] 35.6 % Low 36.0 - 46.0 % [facility] Hemoglobin (Bld) [Mass/Vol] 11.4 g/dL Low 11.5 - 15.5 g/dL [facility] Immature Gran % 0.2 % [facility] Lymphocytes (Bld) [#/Vol] 1.15 10*3/uL 1.00 - 4.00 k/uL [facility] Lymphocytes/100 WBC (Bld) 23.5 % [facility] MCH (RBC) [Entitic mass] 30.5 pg 26.0 - 34.0 pg [facility] MCHC (RBC) [Mass/Vol] 32.0 g/dL 30.5 - 36.0 g/dL [facility] MCV (RBC) [Entitic vol] 95.2 fL 80.0 - 100.0 fL [facility] Monocytes (Bld) [#/Vol] 0.35 10*3/uL <0.87 k/uL [facility] Monocytes/100 WBC (Bld) 7.1 % [facility] Neutrophils (Bld) [#/Vol] 3.28 10*3/uL 1.45 - 7.50 k/uL [facility] Neutrophils/100 WBC (Bld) 67.0 % [facility] Nucleated RBC (Bld) [#/Vol] 10*3/uL <0.01 k/uL [facility] Nucleated RBC/100 WBC (Bld) [Ratio] 0.0 /100 WBC [facility] Platelet mean volume (Bld) [Entitic vol] 9.5 fL 9.0 - 12.7 fL [facility] Platelets (Bld) [#/Vol] 182 10*3/uL 150 - 400 k/uL [facility] RBC (Bld) [#/Vol] 3.74 10*6/uL Low 3.90 - 5.2 0 m/uL [facility] WBC (Bld) [#/Vol] 4.90 10*3/uL 3.70 - 11.00 k/uL [facility] Comprehensive metabolic 2000 panelon 10-27-2021 Albumin [Mass/Vol] 4.8 g/dL Normal 3.9-4.9 [facility] Comment on above: Order Comment: Speci men Type: BLOOD SPECIMENOrdering Facility: [facility] Address: [address] [place] [phone] Performed By: #### 2 4323-8 ####[facility] STACEY [facility] HOSPITALINNA [id number] [place] [address] [place] ALP [Catalytic activity/Vol] 77 U/L Normal 34-123 [facility] Comment on above: Order Comment: Speci men Type: BLOOD SPECIMENOrdering Facility: [facility] Address: [address] [address] Performed By: #### 2 4323-8 ####[facility] HEENAA [id number] [address] [place] ALT [Catalytic activity/Vol] 9 U/L Normal 7-38 [facility] Comment on above: Order Comment: Speci men Type: BLOOD SPECIMENOrdering Facility: [facility] Address: [address] [place] [address] Performed By: #### 2 4323-8 ####[facility] DONISGARDEN GROVENCLIA [id number] [place] [address] [place] Anion gap [Moles/Vol] 11 mmol/L Normal 9-18 [facility] Comment on above: Order Comment: Speci men Type: BLOOD SPECIMENOrdering Facility: [facility] Address: [address] [place] [address] Performed By: #### 2 4323-8 ####[facility]IMMEENCL[facility] [id number] [place] [address] [place] AST [Catalytic activity/Vol] 20 U/L Normal 13-35 [facility] Comment on above: Order Comment: Speci men Type: BLOOD SPECIMENOrdering Facility: [facility] Address: [address] [place], [place] [id number] Performed By: #### 2 4323-8 ####[facility] HOS[facility]ITALWNCLIA [id number] [place] [address] [place] Bilirubin [Mass/Vol] 0.6 mg/dL Normal 0.2-1.3 [facility] Comment on above: Order Comment: Speci men Type: BLOOD SPECIMENOrdering Facility: [facility] Address: [address] [place] [address] Performed By: #### 2 4323-8 ####[facility] MILLTOWNCLIA [id number] [place] [address] [place] Calcium [Mass/Vol] 8.8 mg/dL Normal 8.5-10.2 [facility] Comment on above: Order Comment: Speci men Type: BLOOD SPECIMENOrdering Facility: [facility] Address: [address] [place] [address] Performed By: #### 2 4323-8 ####[facility] MILLTOWNCLIA [id number] [place] [address] [place] Chloride [Moles/Vol] 111 mmol/L High 97-105 [facility] Comment on above: Order Comment: Speci men Type: BLOOD SPECIMENOrdering Facility: [facility] Address: [address] [place] [address] Performed By: #### 2 4323-8 ####[facility] KISSIMMEENCLIA [id number] [place] [address] [place] CO2 [Moles/Vol] 23 mmol/L Normal 22-30 [facility] Comment on above: Order Comment: Speci men Type: BLOOD SPECIMENOrdering Facility: [facility] Address: [address] [place] [address] Performed By: #### 2 4323-8 ####[facility] MILLTOWNCLIA [id number] [place] [address] [place] Creatinine [Mass/Vol] 0.70 mg/dL Normal 0.58-0.96 [facility] Comment on above: Order Comment: Speci men Type: BLOOD SPECIMENOrdering Facility: [facility] Address: [address] [place] [address] Performed By: #### 2 4323-8 ####[facility] HOSPITALWNCLIA [id number] [place] [address] [place] ESTIMATED GLOMERULAR FILTRATION RATE 105 mL/min/1.73m??? Normal >=60 [facility] Comment on above: Order Comment: Bharti moyer Type: BLOOD SPECIMENOrdering Facility: [facility] Address: [address] [place], [place] [id number] Result Comment: Mirta mated Glomerular Filtration Rate (eGFR) is calculated using the 2020 CKD-EPI creatinine equation. This equation utilizes serum creatinine, sex, and age as parameters. The creatinine assay has traceable calibration to isotope dilution-mass spectrometry. Refer to KDIGO guidelines for clinical interpretation. In patients with unstable renal function, e.g. those with acute kidney injury, the eGFR may not accurately reflect actual GFR. Performed By: #### 2 4323-8 ####[facility] [id number] [place] [address] [place] Glucose [Mass/Vol] 75 mg/dL Normal 74-99 [facility] Comment on above: Order Comment: Bharti moyer Type: BLOOD SPECIMENOrdering Facility: [facility] Address: [address] [place], [place] [phone] Result Comment: The [place] [employer] (ADA) provides guidance for cutoff values for fasting glucose and random glucose. The ADA defines fasting as no caloric intake for at least 8 hours. Fasting plasma glucose results between 100 to 125 mg/dL indicate increased risk for diabetes (prediabetes). Fasting plasma glucose results greater than or equal to 126 mg/dL meet the criteria for diagnosis of diabetes. In the absence of unequivocal hyperglycemia, results should be confirmed by repeat testing. In a patient with classic symptoms of hyperglycemia or hyperglycemic crisis, random plasma glucose results greater than or equal to 200 mg/dL meet the criteria for diagnosis of diabetes. Reference: Standards of Medical Care in Diabetes 2016, [place] [employer]. Diabetes Care. 2016.39(Suppl 1). Performed By: #### 2 4323-8 ####[facility] KISSIMMEENCLIA [id number] [place] [address] [place] Potassium [Moles/Vol] 4.0 mmol/L Normal 3.7-5.1 [facility] Comment on above: Order Comment: Speci men Type: BLOOD SPECIMENOrdering Facility: [facility] Address: [address] [place] [address] Performed By: #### 2 4323-8 ####[facility] DONISTOWNCLIA [id number] [place] [address] [place] Protein [Mass/Vol] 6.7 g/dL Normal 6.3-8.0 [facility] Comment on above: Order Comment: Speci men Type: BLOOD SPECIMENOrdering Facility: [facility] Address: [address] [place] [address] Performed By: #### 2 4323-8 ####[facility] KISSIMMEENCLIA [id number] [place] [address] [place] Sodium [Moles/Vol] 145 mmol/L High 136-144 [facility] Comment on above: Order Comment: Speci men Type: BLOOD SPECIMENOrdering Facility: [facility] Address: [address] [place] [address] Performed By: #### 2 4323-8 ####[facility] KISSIMMEENCL[facility] [id number] [place] [address] [place] Urea nitrogen [Mass/Vol] 12 mg/dL Normal 7-21 [facility] Comment on above: Order Comment: Speci men Type: BLOOD SPECIMENOrdering Facility: [facility] Address: [address] [place] [address] Performed By: #### 2 4323-8 ####[facility] HOSPITALWNCLIA [id number] [place] [address] [place] Albumin [Mass/Vol] 4.8 g/dL 3.9 - 4.9 g/dL [facility] ALP [Catalytic activity/Vol] 77 U/L 34 - 123 U/L [facility] ALT [Catalytic activity/Vol] 9 U/L 7 - 38 U/L [facility] Anion gap [Moles/Vol] 11 mmol/L 9 - 18 mmol/L [facility] AST [Catalytic activity/Vol] 20 U/L 13 - 35 U/L [facility] Bilirubin [Mass/Vol] 0.6 mg/dL 0.2 - 1 .3 mg/dL [facility] Calcium [Mass/Vol] 8.8 mg/dL 8.5 - 10. 2 mg/dL [facility] Chloride [Moles/Vol] 111 mmol/L High 97 - 10 5 mmol/L [facility] CO2 [Moles/Vol] 23 mmol/L 22 - 30 mmol/L [facility] Creatinine [Mass/Vol] 0.70 mg/dL 0.58 - 0.96 mg/dL [facility] Estimated Glomerular Filtration Rate 105 mL/min/1.73m >=60 mL/min/1.73 m [facility] Glucose [Mass/Vol] 75 mg/dL 74 - 99 mg/dL [facility] Potassium [Moles/Vol] 4.0 mmol/L 3.7 - 5.1 mmol/L [facility] Protein [Mass/Vol] 6.7 g/dL 6.3 - 8.0 g/dL [facility] Sodium [Moles/Vol] 145 mmol/L High 136 - 144 mmol/L [facility] Urea nitrogen [Mass/Vol] 12 mg/dL 7 - 21 mg/dL [facility] CNPNon 10-23-2021 [place]ERT[place] Telephone ([place]) -- GRACIELA HAYWOOD Richy ([id number]) 1970 F Date Time Provider Department 10/23/21 TOMMY FRENCH During your visit today, we recorded the following information about you: Stephanie Howell, TEODORA 10/23/2021 9:56 AM Signed PSS - Graciela is scheduled at 3:30 for her Zometa treatments (per her request), however, labwork takes 45 min-1hour , could you please advise her she will need to come in for labs at 2:30 - 3:00. Thank you! Selam Daugherty 10/23/2021 10:59 AM Signed Tried to reach pt, went, to vm, left a message regarding information below. Selam Daugherty Allergies As of Date: 10/23/2021 Noted Allergy Reaction PERCOCET (OXYCODONE-ACETAMINOPHEN)1 11 - Vomiting Date Reviewed: 08/27/2021 Reviewed by: Tommy French DO - Fully Assessed Reason for Visit: Appointment [186] Prescriptions as of 10/31/2021 - capecitabine (XELODA) 500 mg tablet TAKE 2 TABLETS (1,000 MG) BY MOUTH TWICE DAILY FOR 14 DAYS ON AND 7 DAYS OFF EVERY 21 DAY CYCLE. - potassium chloride ER (KLOR-CON M20) 20 mEq tablet Take 1 tablet by mouth twice daily. - iv contrast (will be provided with [...] heparin allergy). De-access port on treatment completion. Problem List As Of Date 10/23/2021 Noted Resolved Left breast mass [N63.20] 08/30/2015 09/12/2015 Breast cancer metastasized to axillary lymph no*09/12/2015 Cancer of overlapping sites of left female domo*09/12/2015 02/08/2017 Bone metastases (HCC) [C79.51] 01/15/2016 Malignant neoplasm of right kidney, except jessie*02/01/2017 Malignant neoplasm of overlapping sites of left*02/05/2017 02/08/2017 Malignant neoplasm of overlapping sites of left*02/08/2017 Renal neoplasm [D49.519] 03/15/2017 10/21/2017 Liver metastasis (HCC) [C78.7] 10/21/2017 Dehydration [E86.0] 03/09/2018 Stomatitis and mucositis [K12.1, K12.30] 03/09/2018 Drug rash [L27.0] 09/13/2020 Encounter Status:Closed by STEPHANIE HOWELL on 10/31/21 Normal [facility] CBC W Auto Differential pane l (Bld)on 09-08-2021 Basophils (Bld) [#/Vol] 0.04 10*3/uL Normal <0.11 [facility] Comment on above: Order Comment: Speci men Type: BLOOD SPECIMENOrdering Facility: [facility] Address: [address] [address] Performed By: #### 5 7021-8 ####[facility] [id number] [place] [address] [place] Basophils/100 WBC (Bld) 0.8 % Normal [facility] Comment on above: Order Comment: Speci men Type: BLOOD SPECIMENOrdering Facility: [facility] Address: [address] [address] Performed By: #### 5 7021-8 ####[facility] H[facility]PITALLIA [id number] [place] [address] [place] Differential cell count method Nom (Bld) Auto Normal [facility] Comment on above: Order Comment: Speci men Type: BLOOD SPECIMENOrdering Facility: [facility] Address: [address] [place] [address] Performed By: #### 5 7021-8 ####[facility] KISSIMMEERANDALLA [id number] [place] [address] [place] Eosinophils (Bld) [#/Vol] 0.06 10*3/uL Normal <0.46 [facility] Comment on above: Order Comment: Speci men Type: BLOOD SPECIMENOrdering Facility: [facility] Address: [address] [place] [address] Performed By: #### 5 7021-8 ####[facility]ME[facility] [id number] [place] [address] [place] Eosinophils/100 WBC (Bld) 1.2 % Normal [facility] Comment on above: Order Comment: Speci men Type: BLOOD SPECIMENOrdering Facility: [facility] Address: [address] [place] [address] Performed By: #### 5 7021-8 ####[facility] KISSIMMEENCRANDELLA [id number] [place] [address] [place] Erythrocyte distribution width (RBC) [Ratio] 15.2 % High 11.5-15.0 [facility] Comment on above: Order Comment: Speci men Type: BLOOD SPECIMENOrdering Facility: [facility] Address: [address] [place] [address] Performed By: #### 5 7021-8 ####[facility] KISSIMMEENCLIA [id number] [place] [address] [place] Hematocrit (Bld) [Volume fraction] 34.5 % Low 36.0-46.0 [facility] Comment on above: Order Comment: Speci men Type: BLOOD SPECIMENOrdering Facility: [facility] Address: [address] [place] [address] Performed By: #### 5 7021-8 ####[facility] DONISGeraldNCLEVI [id number] [place] [address] [place] Hemoglobin (Bld) [Mass/Vol] 11.1 g/dL Low 11.5-15.5 [facility] Comment on above: Order Comment: Speci men Type: BLOOD SPECIMENOrdering Facility: [facility] Address: [address] [place] [address] Performed By: #### 5 7021-8 ####[facility] KISSIMMEENCLEVI [id number] [address] [place] IMMATURE GRAN % 0.4 % Normal [facility] Comment on above: Order Comment: Speci men Type: BLOOD SPECIMENOrdering Facility: [facility] Address: [address] [place] [address] Performed By: #### 5 7021-8 ####[facility] KISSIMMEENCA [id number] [place] [address] [place] IMMATURE GRAN ABS <0.03 Normal <0.10 [facility] Comment on above: Order Comment: Speci men Type: BLOOD SPECIMENOrdering Facility: [facility] Address: [address] [place] [address] Performed By: #### 5 7021-8 ####[facility] KISSIMMEENCLIA [id number] [place] [address] [place] Lymphocytes (Bld) [#/Vol] 1.19 10*3/uL Normal 1.00-4.00 [facility] Comment on above: Order Comment: Speci men Type: BLOOD SPECIMENOrdering Facility: [facility] Address: [address] [place] [address] Performed By: #### 5 7021-8 ####[facility] KISSIMMEENCL[facility] [id number] [place] [address] [place] Lymphocytes/100 WBC (Bld) 23.3 % Normal [facility] Comment on above: Order Comment: Speci men Type: BLOOD SPECIMENOrdering Facility: [facility] Address: [address] [place] [address] Performed By: #### 5 7021-8 ####[facility] KISSIMMEENCRANDELL [id number] [place] [address] [place] MCH (RBC) [Entitic mass] 30.7 pg Normal 26.0-34.0 [facility] Comment on above: Order Comment: Speci men Type: BLOOD SPECIMENOrdering Facility: [facility] Address: [address] [place] [address] Performed By: #### 5 7021-8 ####[facility] [id number] [place] [address] [place] MCHC (RBC) [Mass/Vol] 32.2 g/dL Normal 30.5-36.0 [facility] Comment on above: Order Comment: Speci men Type: BLOOD SPECIMENOrdering Facility: [facility] Address: [address] [place] [address] Performed By: #### 5 7021-8 ####[facility] [id number] [place] [address] [place] MCV (RBC) [Entitic vol] 95.3 fL Normal 80.0-100.0 [facility] Comment on above: Order Comment: Speci men Type: BLOOD SPECIMENOrdering Facility: [facility] Address: [address] [place] [address] Performed By: #### 5 7021-8 ####[facility]MEENCS[facility] [id number] [place] [address] [place] Monocytes (Bld) [#/Vol] 0.40 10*3/uL Normal <0.87 [facility] Comment on above: Order Comment: Speci men Type: BLOOD SPECIMENOrdering Facility: [facility] Address: [address] [place] [address] Performed By: #### 5 7021-8 ####[facility] HOS[facility]ITALWNCLIA [id number] [place] [address] [place] Monocytes/100 WBC (Bld) 7.8 % Normal [facility] Comment on above: Order Comment: Speci men Type: BLOOD SPECIMENOrdering Facility: [facility] Address: [address] [place] [address] Performed By: #### 5 7021-8 ####[facility] KISSIMMEENCA [id number] [place] [address] [place] Neutrophils (Bld) [#/Vol] 3.40 10*3/uL Normal 1.45-7.50 [facility] Comment on above: Order Comment: Speci men Type: BLOOD SPECIMENOrdering Facility: [facility] Address: [address] [place] [address] Performed By: #### 5 7021-8 ####[facility]ITALL[facility] [id number] [place] [address] [place] Neutrophils/100 WBC (Bld) 66.5 % Normal [facility] Comment on above: Order Comment: Speci men Type: BLOOD SPECIMENOrdering Facility: [facility] Address: [address] [place] [address] Performed By: #### 5 7021-8 ####[facility] KISSIMMEENCLIA [id number] [place] [address] [place] Nucleated RBC (Bld) [#/Vol] 10*3/uL Normal <0.01 [facility] Comment on above: Order Comment: Speci men Type: BLOOD SPECIMENOrdering Facility: [facility] Address: [address] [place] [address] Performed By: #### 5 7021-8 ####[facility]EN[facility] [id number] [place] [address] [place] Nucleated RBC/100 WBC (Bld) [Ratio] 0.0 /100 WBC Normal [facility] Comment on above: Order Comment: Speci men Type: BLOOD SPECIMENOrdering Facility: [facility] Address: [address] [place] [address] Performed By: #### 5 7021-8 ####[facility]EN[facility] [id number] [place] [address] [place] Platelet mean volume (Bld) [Entitic vol] 9.6 fL Normal 9.0-12.7 [facility] Comment on above: Order Comment: Speci men Type: BLOOD SPECIMENOrdering Facility: [facility] Address: [address] [place] [address] Performed By: #### 5 7021-8 ####[facility] KISSIMMEENCA [id number] [place] [address] [place] Platelets (Bld) [#/Vol] 184 10*3/uL Normal 150-400 [facility] Comment on above: Order Comment: Speci men Type: BLOOD SPECIMENOrdering Facility: [facility] Address: [address] [place] [address] Performed By: #### 5 7021-8 ####[facility] [id number] [place] [address] [place] RBC (Bld) [#/Vol] 3.62 10*6/uL Low 3.90-5.20 [facility] Comment on above: Order Comment: Speci men Type: BLOOD SPECIMENOrdering Facility: [facility] Address: [address] [place] [address] Performed By: #### 5 7021-8 ####[facility]IMMEENCLEVI [id number] [place] [address] [place] WBC (Bld) [#/Vol] 5.11 10*3/uL Normal 3.70-11.00 [facility] Comment on above: Order Comment: Speci men Type: BLOOD SPECIMENOrdering Facility: [facility] Address: [address] [place] [address] Performed By: #### 5 7021-8 ####[facility] [id number] [place] [address] [place] Abs Immature Gran <0.03 <0.10 k/uL [facility] Basophils (Bld) [#/Vol] 0.04 10*3/uL <0.11 k/uL [facility] Basophils/100 WBC (Bld) 0.8 % [facility] Differential cell count method Nom (Bld) Auto [facility] Eosinophils (Bld) [#/Vol] 0.06 10*3/uL <0.46 k/uL [facility] Eosinophils/100 WBC (Bld) 1.2 % [facility] Erythrocyte distribution width (RBC) [Ratio] 15.2 % High 11.5 - 15.0 % [facility] Hematocrit (Bld) [Volume fraction] 34.5 % Low 36.0 - 46.0 % [facility] Hemoglobin (Bld) [Mass/Vol] 11.1 g/dL Low 11.5 - 15.5 g/dL [facility] Immature Gran % 0.4 % [facility] Lymphocytes (Bld) [#/Vol] 1.19 10*3/uL 1.00 - 4.00 k/uL [facility] Lymphocytes/100 WBC (Bld) 23.3 % [facility] MCH (RBC) [Entitic mass] 30.7 pg 26.0 - 34.0 pg [facility] MCHC (RBC) [Mass/Vol] 32.2 g/dL 30.5 - 36.0 g/dL [facility] MCV (RBC) [Entitic vol] 95.3 fL 80.0 - 100.0 fL [facility] Monocytes (Bld) [#/Vol] 0.40 10*3/uL <0.87 k/uL [facility] Monocytes/100 WBC (Bld) 7.8 % [facility] Neutrophils (Bld) [#/Vol] 3.40 10*3/uL 1.45 - 7.50 k/uL [facility] Neutrophils/100 WBC (Bld) 66.5 % [facility] Nucleated RBC (Bld) [#/Vol] 10*3/uL <0.01 k/uL [facility] Nucleated RBC/100 WBC (Bld) [Ratio] 0.0 /100 WBC [facility] Platelet mean volume (Bld) [Entitic vol] 9.6 fL 9.0 - 12.7 fL [facility] Platelets (Bld) [#/Vol] 184 10*3/uL 150 - 400 k/uL [facility] RBC (Bld) [#/Vol] 3.62 10*6/uL Low 3.90 - 5.2 0 m/uL [facility] WBC (Bld) [#/Vol] 5.11 10*3/uL 3.70 - 11.00 k/uL [facility] Comprehensive metabolic 2000 panelon 09-08-2021 Albumin [Mass/Vol] 4.6 g/dL Normal 3.9-4.9 [facility] Comment on above: Order Comment: Speci men Type: BLOOD SPECIMENOrdering Facility: [facility] Address: [address] [place] [address] Performed By: #### 2 4323-8 ####[facility] [id number] [place] [address] [place] ALP [Catalytic activity/Vol] 78 U/L Normal 34-123 [facility] Comment on above: Order Comment: Speci men Type: BLOOD SPECIMENOrdering Facility: [facility] Address: [address] [place] [address] Performed By: #### 2 4323-8 ####[facility]ALL[facility] [id number] [place] [address] [place] ALT [Catalytic activity/Vol] 8 U/L Normal 7-38 [facility] Comment on above: Order Comment: Speci men Type: BLOOD SPECIMENOrdering Facility: [facility] Address: [address] [place] [address] Performed By: #### 2 4323-8 ####[facility] MILLTOWNCLIA [id number] [place] [address] [place] Anion gap [Moles/Vol] 11 mmol/L Normal 9-18 [facility] [facility] Comment on above: Order Comment: Speci men Type: BLOOD SPECIMENOrdering Facility: [facility] Address: [address] [place] [address] Performed By: #### 2 4323-8 ####[facility]IMMEETAVARESLIA [id number] [place] [address] [place] AST [Catalytic activity/Vol] 19 U/L Normal 13-35 [facility] Comment on above: Order Comment: Speci men Type: BLOOD SPECIMENOrdering Facility: [facility] Address: [address] [place] [address] Performed By: #### 2 4323-8 ####[facility] HOSPITALWNCLIA [id number] [place] [address] [place] Bilirubin [Mass/Vol] 1.0 mg/dL Normal 0.2-1.3 [facility] Comment on above: Order Comment: Speci men Type: BLOOD SPECIMENOrdering Facility: [facility] Address: [address] [place] [address] Performed By: #### 2 4323-8 ####[facility] HOSPITALWNCLIA [id number] [place] [address] [place] Calcium [Mass/Vol] 8.8 mg/dL Normal 8.5-10.2 [facility] Comment on above: Order Comment: Speci men Type: BLOOD SPECIMENOrdering Facility: [facility] Address: [address] [place] [address] Performed By: #### 2 4323-8 ####[facility] KISSIMMEENCLIA [id number] [place] [address] [place] Chloride [Moles/Vol] 108 mmol/L High 97-105 [facility] Comment on above: Order Comment: Speci men Type: BLOOD SPECIMENOrdering Facility: [facility] Address: [address] [place] [address] Performed By: #### 2 4323-8 ####[facility]EN[facility] [id number] [place] [address] [place] CO2 [Moles/Vol] 23 mmol/L Normal 22-30 [facility] Comment on above: Order Comment: Speci men Type: BLOOD SPECIMENOrdering Facility: [facility] Address: [address] [place] [address] Performed By: #### 2 4323-8 ####[facility]EN[facility] [id number] [place] [address] [place] Creatinine [Mass/Vol] 0.64 mg/dL Normal 0.58-0.96 [facility] Comment on above: Order Comment: Speci men Type: BLOOD SPECIMENOrdering Facility: [facility] Address: [address] [place] [address] Performed By: #### 2 4323-8 ####[facility] KISSIMMEENCLIA [id number] [place] [address] [place] ESTIMATED GLOMERULAR FILTRATION RATE 107 mL/min/1.73m??? Normal >=60 [facility] Comment on above: Order Comment: Speci men Type: BLOOD SPECIMENOrdering Facility: [facility] Address: [address] [place] [address] Result Comment: Mirta mated Glomerular Filtration Rate (eGFR) is calculated using the 2020 CKD-EPI creatinine equation. This equation utilizes serum creatinine, sex, and age as parameters. The creatinine assay has traceable calibration to isotope dilution-mass spectrometry. Refer to KDIGO guidelines for clinical interpretation. In patients with unstable renal function, e.g. those with acute kidney injury, the eGFR may not accurately reflect actual GFR. Performed By: #### 2 4323-8 ####[facility]MEE [id number] [place] [address] [place] Glucose [Mass/Vol] 75 mg/dL Normal 74-99 [facility] Comment on above: Order Comment: Specmyra moyer Type: BLOOD SPECIMENOrdering Facility: [facility] Address: [address] [place] [address] Result Comment: The [place] Diabetes Association (ADA) provides guidance for cutoff values for fasting glucose and random glucose. The ADA defines fasting as no caloric intake for at least 8 hours. Fasting plasma glucose results between 100 to 125 mg/dL indicate increased risk for diabetes (prediabetes). Fasting plasma glucose results greater than or equal to 126 mg/dL meet the criteria for diagnosis of diabetes. In the absence of unequivocal hyperglycemia, results should be confirmed by repeat testing. In a patient with classic symptoms of hyperglycemia or hyperglycemic crisis, random plasma glucose results greater than or equal to 200 mg/dL meet the criteria for diagnosis of diabetes. Reference: Standards of Medical Care in Diabetes 2016, [place] [employer] Association. Diabetes Care. 2016.39(Suppl 1). Performed By: #### 2 4323-8 ####[facility] [id number] [place] [address] [place] Potassium [Moles/Vol] 3.6 mmol/L Low 3.7-5.1 [facility] Comment on above: Order Comment: Bharti moyer Type: BLOOD SPECIMENOrdering Facility: [facility] Address: [address] [address] Performed By: #### 2 4323-8 ####[facility] HOSPITALLIA [id number] [place] [address] [place] Protein [Mass/Vol] 6.9 g/dL Normal 6.3-8.0 [facility] Comment on above: Order Comment: Speci men Type: BLOOD SPECIMENOrdering Facility: [facility] Address: [address] [place] [address] Performed By: #### 2 4323-8 ####[facility] K[facility]IMMEEINNA [id number] [place] [address] [place] Sodium [Moles/Vol] 142 mmol/L Normal 136-144 [facility] Comment on above: Order Comment: Speci men Type: BLOOD SPECIMENOrdering Facility: [facility] Address: [address] [place] [address] Performed By: #### 2 4323-8 ####[facility] [id number] [place] [address] [place] Urea nitrogen [Mass/Vol] 9 mg/dL Normal 7-21 [facility] Comment on above: Order Comment: Speci men Type: BLOOD SPECIMENOrdering Facility: [facility] Address: [address] [place] [address] Performed By: #### 2 4323-8 ####[facility]MEENCL[facility] [id number] [place] [address] [place] Albumin [Mass/Vol] 4.6 g/dL 3.9 - 4.9 g/dL [facility] ALP [Catalytic activity/Vol] 78 U/L 34 - 123 U/L [facility] ALT [Catalytic activity/Vol] 8 U/L 7 - 38 U/L [facility] Anion gap [Moles/Vol] 11 mmol/L 9 - 18 mmol/L [facility] AST [Catalytic activity/Vol] 19 U/L 13 - 35 U/L [facility] Bilirubin [Mass/Vol] 1.0 mg/dL 0.2 - 1 .3 mg/dL [facility] Calcium [Mass/Vol] 8.8 mg/dL 8.5 - 10. 2 mg/dL [facility] Chloride [Moles/Vol] 108 mmol/L High 97 - 10 5 mmol/L [facility] CO2 [Moles/Vol] 23 mmol/L 22 - 30 mmol/L [facility] Creatinine [Mass/Vol] 0.64 mg/dL 0.58 - 0.96 mg/dL [facility] Estimated Glomerular Filtration Rate 107 mL/min/1.73m >=60 mL/min/1.73 m [facility] Glucose [Mass/Vol] 75 mg/dL 74 - 99 mg/dL [facility] Potassium [Moles/Vol] 3.6 mmol/L Low 3.7 - 5.1 mmol/L [facility] Protein [Mass/Vol] 6.9 g/dL 6.3 - 8.0 g/dL [facility] Sodium [Moles/Vol] 142 mmol/L 136 - 144 mmol/L [facility] Urea nitrogen [Mass/Vol] 9 mg/dL 7 - 21 mg/dL [facility] CNPNon 09-04-2021 CNPN Telephone ([employer]) -- GRACIELA HAYWOOD ([id number]) 1970 F Date Time Provider Department 09/04/21 ZACKERY OLIVEROS During your visit today, we recorded the following information about you: Xiomara Ramey LPN 09/04/2021 4:25 PM Signed ----- Message from Norma Renee PA-C sent at 09/03/2021 3:45 PM EDT ----- Please let patient know final pathology was completely benign. Since polyp was not the precancerous type, OK to repeat colonoscopy in 10 years for surveillance if no changes or new concerns before that time. Please update HM and place recall letter Xiomara Ramey LPN 09/04/2021 4:26 PM Signed Left patient message to call office back for results. See note below. Xiomara Ramey LPN Xiomara RameySALAS 09/04/2021 4:48 PM Signed Patient updated on results. Allergies As of Date: 09/04/2021 Noted Allergy Reaction PERCOCET (OXYCODONE-ACETAMINOPHEN)1 11 - Vomiting Date Reviewed: 08/27/2021 Reviewed by: Tommy French DO - Fully Assessed Reason for Visit: Results [95] Cmt: colonoscopy Prescriptions as of 09/15/2021 - capecitabine (XELODA) 500 mg tablet TAKE 2 TABLETS (1,000 MG) BY MOUTH TWICE DAILY FOR 14 DAYS ON AND 7 DAYS OFF EVERY 21 DAY CYCLE. - potassium chloride ER (KLOR-CON M20) 20 mEq tablet Take 1 tablet by mouth twice daily. - iv contrast (will be provided with [...] heparin allergy). De-access port on treatment completion. Problem List As Of Date 09/04/2021 Noted Resolved Left breast mass [N63.20] 08/30/2015 09/12/2015 Breast cancer metastasized to axillary lymph no*09/12/2015 Cancer of overlapping sites of left female domo*09/12/2015 02/08/2017 Bone metastases (HCC) [C79.51] 01/15/2016 Malignant neoplasm of right kidney, except jessie*02/01/2017 Malignant neoplasm of overlapping sites of left*02/05/2017 02/08/2017 Malignant neoplasm of overlapping sites of left*02/08/2017 Renal neoplasm [D49.519] 03/15/2017 10/21/2017 Liver metastasis (HCC) [C78.7] 10/21/2017 Dehydration [E86.0] 03/09/2018 Stomatitis and mucositis [K12.1, K12.30] 03/09/2018 Drug rash [L27.0] 09/13/2020 Encounter Status:Closed by XIOMARA RAMEY on 09/15/21 Normal [facility] CBC W Auto Differential pane l (Bld)on 08-27-2021 Basophils (Bld) [#/Vol] 0.03 10*3/uL Normal <0.11 [facility] Comment on above: Order Comment: Speci men Type: BLOOD SPECIMENOrdering Facility: [facility] Address: [address] [place] [address] Performed By: #### 5 7021-8 ####[facility] HOSPITALLEVI [id number] [place] [address] [place] Basophils/100 WBC (Bld) 0.7 % Normal [facility] Comment on above: Order Comment: Speci men Type: BLOOD SPECIMENOrdering Facility: [facility] Address: [address] [address] Performed By: #### 5 7021-8 ####[facility] KISSIMMEENCRANDELLA [id number] [place] [address] [place] Differential cell count method Nom (Bld) Auto Normal [facility] Comment on above: Order Comment: Speci men Type: BLOOD SPECIMENOrdering Facility: [facility] Address: [address] [place] [address] Performed By: #### 5 7021-8 ####[facility]EN[facility] [id number] [place] [address] [place] Eosinophils (Bld) [#/Vol] 0.07 10*3/uL Normal <0.46 [facility] Comment on above: Order Comment: Speci men Type: BLOOD SPECIMENOrdering Facility: [facility] Address: [address] [place] [address] Performed By: #### 5 7021-8 ####[facility] [id number] [place] [address] [place] Eosinophils/100 WBC (Bld) 1.7 % Normal [facility] Comment on above: Order Comment: Speci men Type: BLOOD SPECIMENOrdering Facility: [facility] Address: [address] [place] [address] Performed By: #### 5 7021-8 ####[facility]IMMEENCLI [id number] [place] [address] [place] Erythrocyte distribution width (RBC) [Ratio] 15.1 % High 11.5-15.0 [facility] Comment on above: Order Comment: Speci men Type: BLOOD SPECIMENOrdering Facility: [facility] Address: [address] [place] [address] Performed By: #### 5 7021-8 ####[facility]MEENCLI [id number] [place] [address] [place] Hematocrit (Bld) [Volume fraction] 32.9 % Low 36.0-46.0 [facility] Comment on above: Order Comment: Speci men Type: BLOOD SPECIMENOrdering Facility: [facility] Address: [address] [place] [address] Performed By: #### 5 7021-8 ####[facility] [id number] [place] [address] [place] [facility] Hemoglobin (Bld) [Mass/Vol] 10.7 g/dL Low 11.5-15.5 [facility] Comment on above: Order Comment: Speci men Type: BLOOD SPECIMENOrdering Facility: [facility] Address: [address] [place] [address] Performed By: #### 5 7021-8 ####[facility] [id number] [address] STATES OF [facility] IMMATURE GRAN % 0.2 % Normal [facility] Comment on above: Order Comment: Speci men Type: BLOOD SPECIMENOrdering Facility: [facility] Address: [address] [place] [address] Performed By: #### 5 7021-8 ####[facility]EN[facility] [id number] [address] IMMATURE GRAN ABS <0.03 Normal <0.10 [facility] Comment on above: Order Comment: Speci men Type: BLOOD SPECIMENOrdering Facility: [facility] Address: [address] [place], [place] [address] Performed By: #### 5 7021-8 ####[facility]MEENCLIA [id number] [place] [address] [place] Lymphocytes (Bld) [#/Vol] 0.99 10*3/uL Low 1.00-4.00 [facility] Comment on above: Order Comment: Speci men Type: BLOOD SPECIMENOrdering Facility: [facility] Address: [address] [place] [address] Performed By: #### 5 7021-8 ####[facility] DONISJOSE RAULLIA [id number] [place] [address] [place] Lymphocytes/100 WBC (Bld) 23.9 % Normal [facility] Comment on above: Order Comment: Speci men Type: BLOOD SPECIMENOrdering Facility: [facility] Address: [address] [place] [address] Performed By: #### 5 7021-8 ####[facility]IMMEETAVARESRANDELLKaris [id number] [place] [address] [place] MCH (RBC) [Entitic mass] 30.8 pg Normal 26.0-34.0 [facility] Comment on above: Order Comment: Speci men Type: BLOOD SPECIMENOrdering Facility: [facility] Address: [address] [place] [address] Performed By: #### 5 7021-8 ####[facility]MEETAVARESKaris [id number] [place] [address] [place] MCHC (RBC) [Mass/Vol] 32.5 g/dL Normal 30.5-36.0 [facility] Comment on above: Order Comment: Speci men Type: BLOOD SPECIMENOrdering Facility: [facility] Address: [address] [place] [address] Performed By: #### 5 7021-8 ####[facility] [id number] [place] [address] [place] MCV (RBC) [Entitic vol] 94.8 fL Normal 80.0-100.0 [facility] Comment on above: Order Comment: Speci men Type: BLOOD SPECIMENOrdering Facility: [facility] Address: [address] [place] [address] Performed By: #### 5 7021-8 ####[facility]IMMEENCLEVI [id number] [place] [id number] [place] Monocytes (Bld) [#/Vol] 0.31 10*3/uL Normal <0.87 [facility] Comment on above: Order Comment: Speci men Type: BLOOD SPECIMENOrdering Facility: [facility] Address: [address] [place] [address] Performed By: #### 5 7021-8 ####[facility] HOSPITALWNCLIA [id number] [place] [address] [place] Monocytes/100 WBC (Bld) 7.5 % Normal [facility] Comment on above: Order Comment: Speci men Type: BLOOD SPECIMENOrdering Facility: [facility] Address: [address] [place] [address] Performed By: #### 5 7021-8 ####[facility]MEENCLIA [id number] [place] [address] [place] Neutrophils (Bld) [#/Vol] 2.73 10*3/uL Normal 1.45-7.50 [facility] Comment on above: Order Comment: Speci men Type: BLOOD SPECIMENOrdering Facility: [facility] Address: [address] [place] [address] Performed By: #### 5 7021-8 ####[facility] HOSPITALLIA [id number] [place] [address] [place] Neutrophils/100 WBC (Bld) 66.0 % Normal [facility] Comment on above: Order Comment: Speci men Type: BLOOD SPECIMENOrdering Facility: [facility] Address: [address] [place] [address] Performed By: #### 5 7021-8 ####[facility]MEENCL[facility] [id number] [place] [address] [place] Nucleated RBC (Bld) [#/Vol] 10*3/uL Normal <0.01 [facility] Comment on above: Order Comment: Speci men Type: BLOOD SPECIMENOrdering Facility: [facility] Address: [address] [place] [address] Performed By: #### 5 7021-8 ####[facility] STACEY ARGUELLONCLEVI [id number] [place] [address] [place] Nucleated RBC/100 WBC (Bld) [Ratio] 0.0 /100 WBC Normal [facility] Comment on above: Order Comment: Speci men Type: BLOOD SPECIMENOrdering Facility: [facility] Address: [address] [place] [address] Performed By: #### 5 7021-8 ####[facility]MEENCLIA [id number] [place] [address] [place] Platelet mean volume (Bld) [Entitic vol] 9.7 fL Normal 9.0-12.7 [facility] Comment on above: Order Comment: Speci men Type: BLOOD SPECIMENOrdering Facility: [facility] Address: [address] [place] [address] Performed By: #### 5 7021-8 ####[facility]MEENCL[facility] [id number] [place] [address] [place] Platelets (Bld) [#/Vol] 166 10*3/uL Normal 150-400 [facility] Comment on above: Order Comment: Speci men Type: BLOOD SPECIMENOrdering Facility: [facility] Address: [address] [place] [address] Performed By: #### 5 7021-8 ####[facility]MEENCL[facility] [id number] [place] [address] [place] RBC (Bld) [#/Vol] 3.47 10*6/uL Low 3.90-5.20 [facility] Comment on above: Order Comment: Speci men Type: BLOOD SPECIMENOrdering Facility: [facility] Address: [address] [place] [address] Performed By: #### 5 7021-8 ####[facility] STACEY ARGUELLONCLIA [id number] [place] [address] [place] WBC (Bld) [#/Vol] 4.14 10*3/uL Normal 3.70-11.00 [facility] Comment on above: Order Comment: Speci men Type: BLOOD SPECIMENOrdering Facility: [facility] Address: [address] [place] [address] Performed By: #### 5 7021-8 ####[facility] STACEY ARGUELLONCLIA [id number] [place] [address] [place] CNOVSPon 08-27-2021 CNOVSP Visit (SP) Office (H EMAWS) -- GRACIELA HAYWOOD ([id number]) 1970 F Date Time Provider Department 08/27/21 9:10 AM TOMMY FRENCH During your visit today, we recorded the following information about you: Temperature Pulse Blood pressure 97.7 degrees 73/minute 112/77 Tommy French DO 08/27/2021 9:46 AM Signed Diagnosis: 1) Breast cancer. 2) Right renal [...] was not observed. The tumor specimen was ER/IN positive (greater than 95%, moderate) and IN positive (27%, weak). The tumor was HER-2 [...] ? ? ? Uninvolved by invasive carcinoma Lymphovasc (more content not included)... Normal [facility] 08-27-2021 NORBERTN Telephone ([place]) -- GRACIELA HAYWOOD ([id number]) 1970 F Date Time Provider Department 08/27/21 TOMMY FRENCH During your visit today, we recorded the following information about you: Mandy Red 08/27/2021 11:03 AM Signed Left message for patient to return call. When patient calls, please schedule Q3WK CBC/CMP(PORT)* on off weeks for Xeloda and an Est Pat w/ Chemo with Dr. French in approx. 6 weeks. Once scheduled, document and route to P TR HEM/ONC PSR. Mandy Hoffmancarroll Saucedoie Ellis 09/02/2021 9:43 AM Signed Second attempt to contact patient to schedule - left voicemail. When patient calls, please message and warm transfer to [facility] PSS for scheduling of below appointments. Mandy Ellis Red 09/02/2021 4:09 PM Signed Spoke with patient to schedule. Patient expressed concern over frequency of appointments. Patient to reach out to Dr. French directly. Please keep this note open until Dr. French and patient converse. Mandy Red Allergies As of Date: 08/27/2021 Noted Allergy Reaction PERCOCET (OXYCODONE-ACETAMINOPHEN)1 11 - Vomiting Date Reviewed: 08/27/2021 Reviewed by: Tommy French, - Fully Assessed Reason for Visit: Future Appointment [256] Prescriptions as of 09/08/2021 - capecitabine (XELODA) 500 mg tablet TAKE 2 TABLETS (1,000 MG) BY MOUTH TWICE DAILY FOR 14 DAYS ON AND 7 DAYS OFF EVERY 21 DAY CYCLE. - potassium chloride ER (KLOR-CON M20) 20 mEq tablet Take 1 tablet by mouth twice daily. - iv contrast (will be provided with [...] heparin allergy). De-access port on treatment completion. Problem List As Of Date 08/27/2021 Noted Resolved Left breast mass [N63.20] 08/30/2015 09/12/2015 Breast cancer metastasized to axillary lymph no*09/12/2015 Cancer of overlapping sites of left female domo*09/12/2015 02/08/2017 Bone metastases (HCC) [C79.51] 01/15/2016 Malignant neoplasm of right kidney, except jessie*02/01/2017 Malignant neoplasm of overlapping sites of left*02/05/2017 02/08/2017 Malignant neoplasm of overlapping sites of left*02/08/2017 Renal neoplasm [D49.519] 03/15/2017 10/21/2017 Liver metastasis (HCC) [C78.7] 10/21/2017 Dehydration [E86.0] 03/09/2018 Stomatitis and mucositis [K12.1, K12.30] 03/09/2018 Drug rash [L27.0] 09/13/2020 Encounter Status:Closed by MANDY RED on 09/08/21 Normal [facility] Comprehensive metabolic 2000 panelon 08-27-2021 Albumin [Mass/Vol] 4.4 g/dL Normal 3.9-4.9 [facility] Comment on above: Order Comment: Speci men Type: BLOOD SPECIMENOrdering Facility: [facility] Address: [address] [place] [address] Performed By: #### 2 4323-8 ####[facility] STACEY LITTLE [id number] [place] [address] [place] ALP [Catalytic activity/Vol] 71 U/L Normal 34-123 [facility] Comment on above: Order Comment: Speci men Type: BLOOD SPECIMENOrdering Facility: [facility] Address: [address] [place] [address] Performed By: #### 2 4323-8 ####[facility] STACEY MILLTOWNCLIA [id number] [place] [address] [place] ALT [Catalytic activity/Vol] 11 U/L Normal 7-38 [facility] Comment on above: Order Comment: Speci men Type: BLOOD SPECIMENOrdering Facility: [facility] Address: [address] [place] [address] Performed By: #### 2 4323-8 ####[facility] MILLWTAVARESLIA [id number] [place] [address] [place] Anion gap [Moles/Vol] 8 mmol/L Low 9-18 [facility] Comment on above: Order Comment: Speci men Type: BLOOD SPECIMENOrdering Facility: [facility] Address: [address] [place] [address] Performed By: #### 2 4323-8 ####[facility] MILLTOWNCLIA [id number] [place] [address] [place] AST [Catalytic activity/Vol] 21 U/L Normal 13-35 [facility] Comment on above: Order Comment: Speci men Type: BLOOD SPECIMENOrdering Facility: [facility] Address: [address] [place] [address] Performed By: #### 2 4323-8 ####[facility] MILLTOWNCLIA [id number] [place] [address] [place] Bilirubin [Mass/Vol] 0.7 mg/dL Normal 0.2-1.3 [facility] Comment on above: Order Comment: Speci men Type: BLOOD SPECIMENOrdering Facility: [facility] Address: [address] [place] [address] Performed By: #### 2 4323-8 ####[facility] DONISGARDEN GROVENCLIA [id number] [place] [address] [place] Calcium [Mass/Vol] 8.5 mg/dL Normal 8.5-10.2 [facility] Comment on above: Order Comment: Speci men Type: BLOOD SPECIMENOrdering Facility: [facility] Address: [address] [place] [address] Performed By: #### 2 4323-8 ####[facility] KISSIMMEENCLIA [id number] [place] [address] [place] Chloride [Moles/Vol] 109 mmol/L High 97-105 [facility] Comment on above: Order Comment: Speci men Type: BLOOD SPECIMENOrdering Facility: [facility] Address: [address] [place] [address] Performed By: #### 2 4323-8 ####[facility] K[facility]IMMEENCL[facility] [id number] [place] [address] [place] CO2 [Moles/Vol] 25 mmol/L Normal 22-30 [facility] Comment on above: Order Comment: Speci men Type: BLOOD SPECIMENOrdering Facility: [facility] Address: [address] [place], [place] [address] Performed By: #### 2 4323-8 ####[facility]MEENCL[facility] [id number] [place] [address] [place] Creatinine [Mass/Vol] 0.65 mg/dL Normal 0.58-0.96 [facility] Comment on above: Order Comment: Speci men Type: BLOOD SPECIMENOrdering Facility: [facility] Address: [address] [place] [address] Performed By: #### 2 4323-8 ####[facility] [facility] [id number] [place] [address] [place] ESTIMATED GLOMERULAR FILTRATION RATE 107 mL/min/1.73m??? Normal >=60 [facility] Comment on above: Order Comment: Bharti moyer Type: BLOOD SPECIMENOrdering Facility: [facility] Address: [address] [place] [address] Result Comment: Mirta mated Glomerular Filtration Rate (eGFR) is calculated using the 2020 CKD-EPI creatinine equation. This equation utilizes serum creatinine, sex, and age as parameters. The creatinine assay has traceable calibration to isotope dilution-mass spectrometry. Refer to KDIGO guidelines for clinical interpretation. In patients with unstable renal function, e.g. those with acute kidney injury, the eGFR may not accurately reflect actual GFR. Performed By: #### 2 4323-8 ####[facility] [id number] [place] [address] [place] Glucose [Mass/Vol] 90 mg/dL Normal 74-99 [facility] Comment on above: Order Comment: Bharti moyer Type: BLOOD SPECIMENOrdering Facility: [facility] Address: [address] [place] [address] Result Comment: The [place] Diabetes Association (ADA) provides guidance for cutoff values for fasting glucose and random glucose. The ADA defines fasting as no caloric intake for at least 8 hours. Fasting plasma glucose results between 100 to 125 mg/dL indicate increased risk for diabetes (prediabetes). Fasting plasma glucose results greater than or equal to 126 mg/dL meet the criteria for diagnosis of diabetes. In the absence of unequivocal hyperglycemia, results should be confirmed by repeat testing. In a patient with classic symptoms of hyperglycemia or hyperglycemic crisis, random plasma glucose results greater than or equal to 200 mg/dL meet the criteria for diagnosis of diabetes. Reference: Standards of Medical Care in Diabetes 2016, [place] Diabetes Association. Diabetes Care. 2016.39(Suppl 1). Performed By: #### 2 4323-8 ####[facility] [id number] [place] [address] [place] Potassium [Moles/Vol] 3.6 mmol/L Low 3.7-5.1 [facility] Comment on above: Order Comment: Speci men Type: BLOOD SPECIMENOrdering Facility: [facility] Address: [address] [place] [address] Performed By: #### 2 4323-8 ####[facility]aris [id number] [place] [address] [place] Protein [Mass/Vol] 6.6 g/dL Normal 6.3-8.0 [facility] Comment on above: Order Comment: Speci men Type: BLOOD SPECIMENOrdering Facility: [facility] Address: [address] [place] [address] Performed By: #### 2 4323-8 ####[facility] HOSPITALKaris [id number] [place] [address] [place] Sodium [Moles/Vol] 142 mmol/L Normal 136-144 [facility] Comment on above: Order Comment: Speci men Type: BLOOD SPECIMENOrdering Facility: [facility] Address: [address] [place] [address] Performed By: #### 2 4323-8 ####[facility] [id number] [place] [address] [place] Urea nitrogen [Mass/Vol] 7 mg/dL Normal 7-21 [facility] Comment on above: Order Comment: Speci men Type: BLOOD SPECIMENOrdering Facility: [facility] Address: [address] [place] [address] Performed By: #### 2 4323-8 ####[facility] [id number] [place] [address] [place] COLONOSCOPY SCREENINGon 08-15 [facility] HISTORY PHYSICALon 2 HISTORY PHYSICAL HNO ID: [id number] Author: Zackery Oliveros MD Service: General Surgery Author Type: Physician Type: HANDP Filed: 08/25/2021 7:48 AM Note Text: Diagnosis: 1) Breast cancer. 2) Right renal cancer. ? HPI: Patient 51-year-old female who had a past medical history significant only for anemia. She appreciated a mass in her left breast. She presented to Dr. Kwon for workup. ? She appreciated mass--about 2-3 months at most prior to presentation. At first thought if may have been a cyst because it fluctuated with menstrual cycles. ? Patient underwent a left breast needle core [...] was not observed. The tumor specimen was ER/IN positive (greater than 95%, moderate) and IN positive (27%, weak). The tumor was HER-2 1+. ? CT C/A/P 09/19/2015: Significant for osteolytic lesions [...] or equal to 1.5 cm in diameter. ? Previous therapy: 1) Neoadjuvant AC followed by Taxol. 2) Left mastectomy, lymphatic mapping, sentinel node biopsy, additional juan dissection, and right prophylactic mastectomy 02/28/2016. 3) Exam under anesthesia, diagnostic laparoscopy, bilateral salpingo- oophorectomy with concurrent mastectomy 02/28/2016. ? Pathology: 1. Right and left fallopian tubes, [...] and columnar cell change. - Unremarkable nipple. ? Underwent robotic-assisted laparoscopic Right partial??nephrectomy 02/2017. ? Pathology: Kidney, right, partial nephrectomy: - Renal [...] Tumor 4 cm or less in greatest dimensi (more content not included)... [facility] NURSING PROGon 08-25-2021 NURSING PROG HNO ID: [id number] Author: Jamila Frausto RN Service: ? Author Type: Registered Nurse Type: Nursing Progress Note Filed: 08/25/2021 9:42 AM Note Text: Back to bed. Was able to pass air rectally. States feeling better. Sipping at drink and taking some bites of saltine crackers. Jamila Frausto RN [facility] NURSING PROG HNO ID: [id number] Author: Jamila Frausto RN Service: ? Author Type: Registered Nurse Type: Nursing Progress Note Filed: 08/25/2021 9:41 AM Note Text: Still slightly nauseated. Feels like she needs to pass some gas rectally. Ambulated to the bathroom. Jamila Frausto RN [facility] NURSING PROG HNO ID: [id number] Author: Jamila Frausto RN Service: ? Author Type: Registered Nurse Type: Nursing Progress Note Filed: 08/25/2021 9:43 AM Note Text: Sat pt up in bed and suddenly became nauseated. Dr. Oliveros in procedure room-given update on patient and verbal orders received. Sister at bedside. Jamila Frausto RN [facility] NURSING PROG HNO ID: [id number] Author: Jamila Frausto RN Service: ? Author Type: Registered Nurse Type: Nursing Progress Note Filed: 08/25/2021 8:04 AM Note Text: [facility] PRE-OP NURSING HAND OFF NOTE SBAR Hand off given to Mariaelena Adam RN. Hand off was communicated verbally and at the patient's bedside and all questions were answered. Jamila Frausto RN [facility] SURGICAL PATHOLOGYon 022 CASE REPORT [facility] Comment on above: Order Comment: Speci men Type: TISSUE SPECIMENOrdering Facility: [facility] Address: [address] [place] [address] Result Comment: [facility] Pathology Report Case: [id number] Authorizing Provider: Zackery Oliveros MD Collected: 08/25/2021 08:24 AM Ordering Location: Ambulatory Surgery Received: 08/25/2021 02:58 PM Pathologist: Shameka Johnson MD Specimen: SIGMOID COLON POLYP Performed By: #### S ####[facility] LABCLIA [id number] [address] DIAGNOSIS COMMENT Multiple additional H AND E levels were examined. No epithelial dysplasia is identified. [facility] Comment on above: Order Comment: Speci men Type: TISSUE SPECIMENOrdering Facility: [facility] Address: [address] [place] [address] Performed By: #### S ####[facility] LABCLIA [id number] [address] FINAL DIAGNOSIS [facility] Comment on above: Order Comment: Speci men Type: TISSUE SPECIMENOrdering Facility: [facility] Address: [address] [place] [address] Result Comment: Angus Schaefer olon, sigmoid polyp, biopsy: - Colonic mucosa with mild architectural distortion, suggestive of prior mucosal injury, see comment. Performed By: #### S ####[facility] LABCLIA [id number] [address] FINAL PERFORMING LAB Normal [facility] Comment on above: Order Comment: Speci men Type: TISSUE SPECIMENOrdering Facility: [facility] Address: [address] [place] [address] Result Comment: Diag nostic interpretation performed at [facility], [address] [place] [address] CLIA# [id number] Rn First Assist: Efrem Woodard M.D. Performed By: #### S ####[facility] LABCLIA [id number] [place] [id number] [place] GROSS DESCRIPTION Normal [facility] Comment on above: Order Comment: Speci men Type: TISSUE SPECIMENOrdering Facility: [facility] Address: [address] [place], [place] [id number] Result Comment: A. S IGMOID COLON POLYP. Received in formalin is one piece of lee, soft tissue measuring 0.5 x 0.2 x 0.1 cm. Totally submitted in one cassette. Gross examination performed at [facility], [address] [place] [address] JT 08/26/2021 1:48 AM Performed By: #### S ####[facility] LABIA [id number] [address] OF [facility] CNOVSPon 07-21-2021 CNOVSP Visit (SP) Office ( [facility]) -- GRACIELA HAYWOOD ([id number]) 1970 F Date Time Provider Department 07/21/21 4:30 PM TOMMY FRENCH During your visit today, we recorded the following information about you: Temperature Pulse Blood pressure Weight 97.6 degrees 72/minute 127/82 60.8 kg Tommy French DO 07/22/2021 1:52 PM Signed Diagnosis: 1) Breast cancer. 2) Right renal [...] was not observed. The tumor specimen was ER/IN positive (greater than 95%, moderate) and IN positive (27%, weak). The tumor was HER-2 [...] ? ? ? Uninvolved by invasive carcinoma (more content not included)... [facility] CT ABD/PEL W IVCONon 022 CT ABD/PEL W IVCON * * *Final Report* * * DATE OF EXAM: Jul 15 2021 5:50PM [facility] 0530 - CT ABD/PEL W IVCON / PROCEDURE REASON: multiple diagnoses * * * * Physician Interpretation * * * * EXAMINATION: CT CHEST WITH IV CONTRAST and CT ABDOMEN AND PELVIS WITH IV CONTRAST CLINICAL HISTORY: Malignant neoplasm of overlapping sites of left breast in female, estrogen receptor positive (HCC) TECHNIQUE: CT of the chest from the thoracic inlet to the upper abdomen was performed following IV contrast. CT of the abdomen and pelvis was performed using standard technique, scanning from just above the dome of the diaphragm to the symphysis pubis. MQ: CTCW_6; CTAP_3 Contrast: IV: 120 ml of Omnipaque 300 Oral: 900 ml of 50ML Omnipaque [address] Radiation dose: Integrated Dose-length product (DLP) for this visit = 758.91 mGy*cm. CT Dose Reduction Employed: Automated exposure control (AEC) COMPARISON: CT of the chest, abdomen and pelvis 04/14/2021 and prior. RESULT: Limitations: None. Chest: Lines, tubes, and devices: Right chest wall Port-A-Cath terminates in the low SVC. Lung parenchyma and airways: No consolidation. Stable 2 mm nodule in the right middle lobe the, unchanged since 09/2015 and likely postinflammatory/infectiou s in nature. No new or suspicious pulmonary nodule. The central airways are patent. Pleural space: No pleural effusion. No pleural thickening. Lower neck, lymph nodes, and mediastinum: The imaged thyroid gland is unchanged with small calcified nodules. Left axillary lymph node dissection. No axillary or supraclavicular lymphadenopathy. Mild unchanged fat stranding in the mediastinum as noted on 09/2015, but no recurrent lymphadenopathy. Heart, pericardium, and thoracic vessels: The thoracic aorta and main pulmonary artery are normal in caliber. The cardiac chambers are normal in size. No coronary artery calcifications are noted, although the study is not optimized for coronary assessment. No pericardial effusion or thickening. Abdomen / Pelvis: Liver: Stable 1.1 cm cyst in the segment 2. Other subcentimeter hypoattenuating treated lesions in the right hepatic lobe are again stable since 03/2021 mildly decreased in conspicuity since 03/2020 likely accentuated due to contrast phase. No new lesions. Biliary: No bile duct dilation. Gallbladder is unremarkable. Spleen: No mass. No splenomegaly. Pancreas: No mass or duct dilation. Adrenals: No mass. Kidneys: Symmetric nephrograms. Stable 1.4 cm cyst in the left interpolar region demonstrates proteinaceous/hemorrhagic content on 11/2019. GI tract: No dilation or wall thickening. The appendix is normal. No bowel obstruction.No previously noted focal wall thickening in the ascending colon likely representing peristalsis and normal in appearance on today's exam. Lymph nodes: No abdominal or pelvic lymphadenopathy. Mesentery/Peritoneum: No ascites or mass. Retroperitoneum: No mass. Vasculature: - Abdominal aorta and iliac arteries: No aneurysm. - Celiac and SMA: Patent without stenosis. - Portal venous system (SMV, splenic vein, portal vein and branches): Patent. - Hepatic veins: Patent. Pelvis: No mass, ascites or fluid collection. Atrophic uterus, no adnexal mass. Musculoskeletal soft tissues: Bones: Suggestion of diffuse osseous demineralization. Treated lesions in the left humeral head, ribs and predominantly T6 and L2 are stable since 03/2020. Unchanged Stable 0.5 cm sclerotic focus in the right acetabulum and other small sclerotic foci in the pelvis. No new or suspicious osseous lesion. No acute osseous abnormalities. 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 Soft tissues: Bilateral mastectomy Sales Product Specialist (topogram) images: No additional findings. IMPRESSION: Again, no significant interval change as compared to 03/2021 and 08/2020. 1. No pulmonary nodules or recurrent lymphadenopathy. 2. Stable treated hepatic lesions. No new lesions or lymphadenopathy in the pelvis. 3. Stable treated osseous lesions. No acute osseous abnormalities. Canoe Maker: [facility]ISVILLEAlejandra Transcribe Date/Time: Jul 17 2021 8:41A Dictated by : RADHA VAZQUEZ MD This examination was interpreted and the report reviewed and electronically signed by: RADHA VAZQUEZ MD on Jul 17 2021 9:05AM EST [id number] [facility] CT CHEST W IVCONon 2 CT CHEST W IVCON * * *Final Report* * * DATE OF EXAM: Jul 15 2021 5:50PM [facility] 0539 - CT CHEST W IVCON / PROCEDURE REASON: multiple diagnoses * * * * Physician Interpretation * * * * EXAMINATION: CT CHEST WITH IV CONTRAST and CT ABDOMEN AND PELVIS WITH IV CONTRAST CLINICAL HISTORY: Malignant neoplasm of overlapping sites of left breast in female, estrogen receptor positive (HCC) TECHNIQUE: CT of the chest from the thoracic inlet to the upper abdomen was performed following IV contrast. CT of the abdomen and pelvis was performed using standard technique, scanning from just above the dome of the diaphragm to the symphysis pubis. MQ: CTCW_6; CTAP_3 Contrast: IV: 120 ml of Omnipaque 300 Oral: 900 ml of 50ML Omnipaque [address] Radiation dose: Integrated Dose-length product (DLP) for this visit = 758.91 mGy*cm. CT Dose Reduction Employed: Automated exposure control (AEC) COMPARISON: CT of the chest, abdomen and pelvis 04/14/2021 and prior. RESULT: Limitations: None. Chest: Lines, tubes, and devices: Right chest wall Port-A-Cath terminates in the low SVC. Lung parenchyma and airways: No consolidation. Stable 2 mm nodule in the right middle lobe the, unchanged since 09/2015 and likely postinflammatory/infectiou s in nature. No new or suspicious pulmonary nodule. The central airways are patent. Pleural space: No pleural effusion. No pleural thickening. Lower neck, lymph nodes, and mediastinum: The imaged thyroid gland is unchanged with small calcified nodules. Left axillary lymph node dissection. No axillary or supraclavicular lymphadenopathy. Mild unchanged fat stranding in the mediastinum as noted on 09/2015, but no recurrent lymphadenopathy. Heart, pericardium, and thoracic vessels: The thoracic aorta and main pulmonary artery are normal in caliber. The cardiac chambers are normal in size. No coronary artery calcifications are noted, although the study is not optimized for coronary assessment. No pericardial effusion or thickening. Abdomen / Pelvis: Liver: Stable 1.1 cm cyst in the segment 2. Other subcentimeter hypoattenuating treated lesions in the right hepatic lobe are again stable since 03/2021 mildly decreased in conspicuity since 03/2020 likely accentuated due to contrast phase. No new lesions. Biliary: No bile duct dilation. Gallbladder is unremarkable. Spleen: No mass. No splenomegaly. Pancreas: No mass or duct dilation. Adrenals: No mass. Kidneys: Symmetric nephrograms. Stable 1.4 cm cyst in the left interpolar region demonstrates proteinaceous/hemorrhagic content on 11/2019. GI tract: No dilation or wall thickening. The appendix is normal. No bowel obstruction.No previously noted focal wall thickening in the ascending colon likely representing peristalsis and normal in appearance on today's exam. Lymph nodes: No abdominal or pelvic lymphadenopathy. Mesentery/Peritoneum: No ascites or mass. Retroperitoneum: No mass. Vasculature: - Abdominal aorta and iliac arteries: No aneurysm. - Celiac and SMA: Patent without stenosis. - Portal venous system (SMV, splenic vein, portal vein and branches): Patent. - Hepatic veins: Patent. Pelvis: No mass, ascites or fluid collection. Atrophic uterus, no adnexal mass. Musculoskeletal soft tissues: Bones: Suggestion of diffuse osseous demineralization. Treated lesions in the left humeral head, ribs and predominantly T6 and L2 are stable since 03/2020. Unchanged Stable 0.5 cm sclerotic focus in the right acetabulum and other small sclerotic foci in the pelvis. No new or suspicious osseous lesion. No acute osseous abnormalities. 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 Soft tissues: Bilateral mastectomy Sales Product Specialist (topogram) images: No additional findings. IMPRESSION: Again, no significant interval change as compared to 03/2021 and 08/2020. 1. No pulmonary nodules or recurrent lymphadenopathy. 2. Stable treated hepatic lesions. No new lesions or lymphadenopathy in the pelvis. 3. Stable treated osseous lesions. No acute osseous abnormalities. Canoe Maker: [facility] Transcribe Date/Time: Jul 17 2021 8:41A Dictated by : RADHA VAZQUEZ MD This examination was interpreted and the report reviewed and electronically signed by: RADHA VAZQUEZ MD on Jul 17 2021 9:05AM EST [id number] [facility] Basic metabolic 2000 panelon 07-14-2021 Anion gap [Moles/Vol] 13 mmol/L Normal 9-18 [facility] Comment on above: Order Comment: Speci men Type: BLOOD SPECIMENOrdering Facility: [facility] Address: [address] [place] [address] Performed By: #### 2 4321-2, [facility] ####[facility] [id number] [place] [address] [place] Calcium [Mass/Vol] 8.9 mg/dL Normal 8.5-10.2 [facility] Comment on above: Order Comment: Speci men Type: BLOOD SPECIMENOrdering Facility: [facility] Address: [address] [place] [address] Performed By: #### 2 4321-2, [facility] ####[facility] [id number] [place] [address] [place] Chloride [Moles/Vol] 107 mmol/L High 97-105 [facility] Comment on above: Order Comment: Speci men Type: BLOOD SPECIMENOrdering Facility: [facility] Address: [address] [place] [address] Performed By: #### 2 4321-2, HFP ####[facility] [id number] [place] [address] [place] CO2 [Moles/Vol] 22 mmol/L Normal 22-30 [facility] Comment on above: Order Comment: Speci men Type: BLOOD SPECIMENOrdering Facility: [facility] Address: [address] [place] [address] Performed By: #### 2 4321-2, HFP ####[facility] [id number] [address] STATES OF [facility] Creatinine [Mass/Vol] 0.69 mg/dL Normal 0.58-0.96 [facility] Comment on above: Order Comment: Speci men Type: BLOOD SPECIMENOrdering Facility: [facility] Address: [address] [place] [address] Performed By: #### 2 4321-2, HFP ####[facility] [id number] [address] ESTIMATED GLOMERULAR FILTRATION RATE 105 mL/min/1.73m??? Normal >=60 [facility] Comment on above: Order Comment: Speci men Type: BLOOD SPECIMENOrdering Facility: [facility] Address: [address] [place] [address] Result Comment: Mirta mated Glomerular Filtration Rate (eGFR) is calculated using the 2020 CKD-EPI creatinine equation. This equation utilizes serum creatinine, sex, and age as parameters. The creatinine assay has traceable calibration to isotope dilution-mass spectrometry. Refer to KDIGO guidelines for clinical interpretation. In patients with unstable renal function, e.g. those with acute kidney injury, the eGFR may not accurately reflect actual GFR. Performed By: #### 2 4321-2, HFP ####[facility] HOSPITALWNCLIA [id number] [place] [address] [place] Glucose [Mass/Vol] 88 mg/dL Normal 74-99 [facility] Comment on above: Order Comment: Speci men Type: BLOOD SPECIMENOrdering Facility: [facility] Address: [address] [place] [address] Result Comment: The [place] Diabetes Association (ADA) provides guidance for cutoff values for fasting glucose and random glucose. The ADA defines fasting as no caloric intake for at least 8 hours. Fasting plasma glucose results between 100 to 125 mg/dL indicate increased risk for diabetes (prediabetes). Fasting plasma glucose results greater than or equal to 126 mg/dL meet the criteria for diagnosis of diabetes. In the absence of unequivocal hyperglycemia, results should be confirmed by repeat testing. In a patient with classic symptoms of hyperglycemia or hyperglycemic crisis, random plasma glucose results greater than or equal to 200 mg/dL meet the criteria for diagnosis of diabetes. Reference: Standards of Medical Care in Diabetes 2016, [place] [employer] Association. Diabetes Care. 2016.39(Suppl 1). Performed By: #### 2 4321-2, HFP ####[facility]ITAL[facility] [id number] [place] [address] [place] Potassium [Moles/Vol] 3.7 mmol/L Normal 3.7-5.1 [facility] Comment on above: Order Comment: Speci men Type: BLOOD SPECIMENOrdering Facility: [facility] Address: [address] [place] [id number] Performed By: #### 2 4321-2, HFP ####[facility]ITALA [id number] [place] [address] [place] Sodium [Moles/Vol] 142 mmol/L Normal 136-144 [facility] Comment on above: Order Comment: Speci men Type: BLOOD SPECIMENOrdering Facility: [facility] Address: [address] [place] [id number] Performed By: #### 2 4321-2, HFP ####[facility] MILLWNCLIA [id number] [place] [address] [place] Urea nitrogen [Mass/Vol] 8 mg/dL Normal 7-21 [facility] Comment on above: Order Comment: Speci men Type: BLOOD SPECIMENOrdering Facility: [facility] Address: [address] [place] [address] Performed By: #### 2 4321-2, [facility] ####[facility] HOS[facility]ITALWNCLIA [id number] [place] [address] [place] CBC W Auto Differential pane l (Bld)on 07-14-2021 Basophils (Bld) [#/Vol] 0.03 10*3/uL Normal <0.11 [facility] Comment on above: Order Comment: Speci men Type: BLOOD SPECIMENOrdering Facility: [facility] Address: [address] [place] [address] Performed By: #### 5 7021-8 ####[facility]ITALLIA [id number] [address] [place] Basophils/100 WBC (Bld) 0.7 % Normal [facility] Comment on above: Order Comment: Speci men Type: BLOOD SPECIMENOrdering Facility: [facility] Address: [address] [place] [address] Performed By: #### 5 7021-8 ####[facility] [id number] [address] Differential cell count method Nom (Bld) Auto Normal [facility] Comment on above: Order Comment: Speci men Type: BLOOD SPECIMENOrdering Facility: [facility] Address: [address] [place] [address] Performed By: #### 5 7021-8 ####[facility]AVARESLIA [id number] [address] [place] Eosinophils (Bld) [#/Vol] 0.10 10*3/uL Normal <0.46 [facility] Comment on above: Order Comment: Speci men Type: BLOOD SPECIMENOrdering Facility: [facility] Address: [address] [place] [address] Performed By: #### 5 7021-8 ####[facility] [id number] [place] [address] [place] Eosinophils/100 WBC (Bld) 2.3 % Normal [facility] Comment on above: Order Comment: Speci men Type: BLOOD SPECIMENOrdering Facility: [facility] Address: [address] [place] [address] Performed By: #### 5 7021-8 ####[facility] [id number] [place] [address] [place] Erythrocyte distribution width (RBC) [Ratio] 15.3 % High 11.5-15.0 [facility] Comment on above: Order Comment: Speci men Type: BLOOD SPECIMENOrdering Facility: [facility] Address: [address] [place] [address] Performed By: #### 5 7021-8 ####[facility] [id number] [address] [place] Hematocrit (Bld) [Volume fraction] 35.2 % Low 36.0-46.0 [facility] Comment on above: Order Comment: Speci men Type: BLOOD SPECIMENOrdering Facility: [facility] Address: [address] [place] [address] Performed By: #### 5 7021-8 ####[facility] [id number] [place] [address] [place] Hemoglobin (Bld) [Mass/Vol] 11.5 g/dL Normal 11.5-15.5 [facility] Comment on above: Order Comment: Speci men Type: BLOOD SPECIMENOrdering Facility: [facility] Address: [address] [place] [address] Performed By: #### 5 7021-8 ####[facility] ANABEL [id number] [place] [address] [place] IMMATURE GRAN % 0.2 % Normal [facility] Comment on above: Order Comment: Speci men Type: BLOOD SPECIMENOrdering Facility: [facility] Address: [address] [place] [address] Performed By: #### 5 7021-8 ####[facility] [id number] [place] [address] [place] IMMATURE GRAN ABS <0.03 Normal <0.10 [facility] Comment on above: Order Comment: Speci men Type: BLOOD SPECIMENOrdering Facility: [facility] Address: [address] [place] [address] Performed By: #### 5 7021-8 ####[facility] [id number] [place] [address] [place] Lymphocytes (Bld) [#/Vol] 1.17 10*3/uL Normal 1.00-4.00 [facility] Comment on above: Order Comment: Speci men Type: BLOOD SPECIMENOrdering Facility: [facility] Address: [address] [place] [address] Performed By: #### 5 7021-8 ####[facility] [id number] [place] [address] [place] Lymphocytes/100 WBC (Bld) 26.5 % Normal [facility] Comment on above: Order Comment: Speci men Type: BLOOD SPECIMENOrdering Facility: [facility] Address: [address] [place] [address] Performed By: #### 5 7021-8 ####[facility] [id number] [place] [address] [place] MCH (RBC) [Entitic mass] 31.4 pg Normal 26.0-34.0 [facility] Comment on above: Order Comment: Speci men Type: BLOOD SPECIMENOrdering Facility: [facility] Address: [address] [place] [address] Performed By: #### 5 7021-8 ####[facility] [id number] [place] [address] [place] MCHC (RBC) [Mass/Vol] 32.7 g/dL Normal 30.5-36.0 [facility] Comment on above: Order Comment: Speci men Type: BLOOD SPECIMENOrdering Facility: [facility] Address: [address] [place] [address] Performed By: #### 5 7021-8 ####[facility] [id number] [place] [address] [place] MCV (RBC) [Entitic vol] 96.2 fL Normal 80.0-100.0 [facility] Comment on above: Order Comment: Speci men Type: BLOOD SPECIMENOrdering Facility: [facility] Address: [address] [place] [address] Performed By: #### 5 7021-8 ####[facility] [id number] [place] [address] [place] Monocytes (Bld) [#/Vol] 0.33 10*3/uL Normal <0.87 [facility] Comment on above: Order Comment: Speci men Type: BLOOD SPECIMENOrdering Facility: [facility] Address: [address] [place] [address] Performed By: #### 5 7021-8 ####[facility] [id number] [place] [address] [place] Monocytes/100 WBC (Bld) 7.5 % Normal [facility] Comment on above: Order Comment: Speci men Type: BLOOD SPECIMENOrdering Facility: [facility] Address: [address] [place] [address] Performed By: #### 5 7021-8 ####[facility] [id number] [place] [address] [place] Neutrophils (Bld) [#/Vol] 2.78 10*3/uL Normal 1.45-7.50 [facility] Comment on above: Order Comment: Speci men Type: BLOOD SPECIMENOrdering Facility: [facility] Address: [address] [place] [address] Performed By: #### 5 7021-8 ####[facility] [id number] [place] [address] [place] Neutrophils/100 WBC (Bld) 62.8 % Normal [facility] Comment on above: Order Comment: Speci men Type: BLOOD SPECIMENOrdering Facility: [facility] Address: [address] [place] [address] Performed By: #### 5 7021-8 ####[facility] [id number] [place] [address] [place] Nucleated RBC (Bld) [#/Vol] 10*3/uL Normal <0.01 [facility] Comment on above: Order Comment: Speci men Type: BLOOD SPECIMENOrdering Facility: [facility] Address: [address] [place] [address] Performed By: #### 5 7021-8 ####[facility] [id number] [place] [address] [place] Nucleated RBC/100 WBC (Bld) [Ratio] 0.0 /100 WBC Normal [facility] Comment on above: Order Comment: Speci men Type: BLOOD SPECIMENOrdering Facility: [facility] Address: [address] [place] [address] Performed By: #### 5 7021-8 ####[facility] [id number] [place] [address] [place] Platelet mean volume (Bld) [Entitic vol] 9.5 fL Normal 9.0-12.7 [facility] Comment on above: Order Comment: Speci men Type: BLOOD SPECIMENOrdering Facility: [facility] Address: [address] [place] [address] Performed By: #### 5 7021-8 ####[facility] [id number] [place] [address] [place] Platelets (Bld) [#/Vol] 174 10*3/uL Normal 150-400 [facility] Comment on above: Order Comment: Speci men Type: BLOOD SPECIMENOrdering Facility: [facility] Address: [address] [place] [address] Performed By: #### 5 7021-8 ####[facility] [id number] [place] [address] [place] RBC (Bld) [#/Vol] 3.66 10*6/uL Low 3.90-5.20 [facility] Comment on above: Order Comment: Speci men Type: BLOOD SPECIMENOrdering Facility: [facility] Address: [address] [place] [address] Performed By: #### 5 7021-8 ####[facility] [id number] [place] [address] [place] WBC (Bld) [#/Vol] 4.42 10*3/uL Normal 3.70-11.00 [facility] Comment on above: Order Comment: Speci men Type: BLOOD SPECIMENOrdering Facility: [facility] Address: [address] [place] [address] Performed By: #### 5 7021-8 ####[facility] STACEY LITTLE [id number] [place] [id number] [place] [address] [facility] CNPYudi 07-14-2021 CNPN Telephone (HEMAWS) -- GRACIELA HAYWOOD ([id number]) 1970 F Date Time Provider Department 07/14/21 TOMMY FRENCH During your visit today, we recorded the following information about you: Mandy Purdy RN 07/14/2021 7:[address] French, Pt is scheduled for labs at 3:00 today and will receive Zometa after. Due to Beaker being implemented today, we were advised that labs may take longer than normal. Is it OK to use her labs from 06/30? Please advise. Thank you. Tommy French DO 07/14/2021 7:54 AM Signed Yes. Tommy French DO Allergies As of Date: 07/14/2021 Noted Allergy Reaction PERCOCET (OXYCODONE-ACETAMINOPHEN)1 11 - Vomiting Date Reviewed: 05/19/2021 Reviewed by: Stephanie Howell RN - Fully Assessed Reason for Visit: Appointment [186] Prescriptions as of 07/29/2021 - capecitabine (XELODA) 500 mg tablet TAKE 2 TABLETS (1,000 MG) BY MOUTH TWICE DAILY FOR 14 DAYS ON AND 7 DAYS OFF EVERY 21 DAY CYCLE. - potassium chloride ER (KLOR-CON M20) 20 mEq tablet Take 1 tablet by mouth twice daily. - famotidine (PEPCID) 20 mg tablet Take [...] heparin allergy). De-access port on treatment completion. Problem List As Of Date 07/14/2021 Noted Resolved Left breast mass [N63.20] 08/30/2015 09/12/2015 Breast cancer metastasized to axillary lymph no*09/12/2015 Cancer of overlapping sites of left female domo*09/12/2015 02/08/2017 Bone metastases (HCC) [C79.51] 01/15/2016 Malignant neoplasm of right kidney, except jessie*02/01/2017 Malignant neoplasm of overlapping sites of left*02/05/2017 02/08/2017 Malignant neoplasm of overlapping sites of left*02/08/2017 Renal neoplasm [D49.519] 03/15/2017 10/21/2017 Liver metastasis (HCC) [C78.7] 10/21/2017 Dehydration [E86.0] 03/09/2018 Stomatitis and mucositis [K12.1, K12.30] 03/09/2018 Drug rash [L27.0] 09/13/2020 Encounter Status:Closed by MANDY PURDY on 07/29/21 Normal [facility] HEPATIC FUNCTION PNLon 07-14 Albumin [Mass/Vol] 4.7 g/dL Normal 3.9-4.9 [facility] Comment on above: Order Comment: Speci men Type: BLOOD SPECIMENOrdering Facility: [facility] Address: [address] [place] [address] Performed By: #### 2 4321-2, HFP ####[facility] [id number] [place] [address] [place] ALP [Catalytic activity/Vol] 77 U/L Normal 34-123 [facility] Comment on above: Order Comment: Speci men Type: BLOOD SPECIMENOrdering Facility: [facility] Address: [address] [place] [address] Performed By: #### 2 4321-2, HFP ####[facility]ITALWNCL[facility] [id number] [place] [address] [place] ALT [Catalytic activity/Vol] 8 U/L Normal 7-38 [facility] Comment on above: Order Comment: Speci men Type: BLOOD SPECIMENOrdering Facility: [facility] Address: [address] [place] [address] Performed By: #### 2 4321-2, HFP ####[facility]CL[facility] [id number] [place] [address] [place] AST [Catalytic activity/Vol] 19 U/L Normal 13-35 [facility] Comment on above: Order Comment: Speci men Type: BLOOD SPECIMENOrdering Facility: [facility] Address: [address] [place] [address] Performed By: #### 2 4321-2, HFP ####[facility] MILLTOWNCLIA [id number] [place] [address] [place] Bilirubin [Mass/Vol] 0.6 mg/dL Normal 0.2-1.3 [facility] Comment on above: Order Comment: Speci men Type: BLOOD SPECIMENOrdering Facility: [facility] Address: [address] [place] [address] Performed By: #### 2 4321-2, HFP ####[facility] MILLMICHIA[facility] BE[facility] CENTERLIA [id number] [place] [address] [place] Bilirubin.conjugated [Mass/Vol] mg/dL Normal <0.2 [facility] Comment on above: Order Comment: Speci men Type: BLOOD SPECIMENOrdering Facility: [facility] Address: [address] [place] [address] Performed By: #### 2 4321-2, HFP ####[facility]ITALWNCL[facility] [id number] [place] [address] [place] Protein [Mass/Vol] 6.8 g/dL Normal 6.3-8.0 [facility] Comment on above: Order Comment: Speci men Type: BLOOD SPECIMENOrdering Facility: [facility] Address: [address] [place] [address] Performed By: #### 2 4321-2, HFP ####[facility] MILLWNCLIA [id number] [place] [address] [place] CBC and Differentialon 06-30 Abs Baso 0.04 k/uL Normal <0.11 [facility] Abs [place] 0.37 k/uL Normal <0.87 [facility] Abs Neut 3.34 k/uL Normal 1.45-7.50 [facility] Absolute nRBC <0.01 Normal <0.01 [facility] Basophils/100 WBC (Bld) 0.8 % Normal [facility] DTYPE Auto Diff Normal [facility] Eosinophils (Bld) [#/Vol] 0.07 10*3/uL Normal <0.46 [facility] Eosinophils/100 WBC (Bld) 1.3 % Normal [facility] Erythrocyte distribution width (RBC) [Ratio] 14.7 % Normal 11.5-15.0 [facility] Hematocrit (Bld) [Volume fraction] 34.5 % Low 36.0-46.0 [facility] Hemoglobin (Bld) [Mass/Vol] 11.2 g/dL Low 11.5-15.5 [facility] Lymphocytes (Bld) [#/Vol] 1.45 10*3/uL Normal 1.00-4.00 [facility] Lymphocytes/100 WBC (Bld) 27.5 % Normal [facility] MCH 30.9 pG Normal 26.0-34.0 [facility] MCHC (RBC) [Mass/Vol] 32.5 g/dL Normal 30.5-36.0 [facility] MCV (RBC) [Entitic vol] 95.3 fL Normal 80.0-100.0 [facility] Monocytes/100 WBC (Bld) 7.0 % Normal [facility] Neutrophils/100 WBC (Bld) 63.4 % Normal [facility] NRBCs 0.0 /100 WBC Normal 0 [facility] Platelet mean volume (Bld) [Entitic vol] 10.1 fL Normal 9.0-12.7 [facility] Platelets (Bld) [#/Vol] 182 10*3/uL Normal 150-400 [facility] RBC (Bld) [#/Vol] 3.62 10*6/uL Low 3.90-5.20 [facility] WBC (Bld) [#/Vol] 5.28 10*3/uL Normal 3.70-11.00 [facility] Comp Metabolic Panelon 06-30 Albumin [Mass/Vol] 4.5 g/dL Normal 3.9-4.9 [facility] ALP [Catalytic activity/Vol] 76 U/L Normal 34-123 [facility] ALT [Catalytic activity/Vol] 9 U/L Normal 7-38 [facility] Anion gap [Moles/Vol] 11 mmol/L Normal 9-18 [facility] AST [Catalytic activity/Vol] 17 U/L Normal 13-35 [facility] Bilirubin [Mass/Vol] 0.8 mg/dL Normal 0.2-1.3 [facility] Calcium [Mass/Vol] 9.0 mg/dL Normal 8.5-10.2 [facility] Chloride [Moles/Vol] 108 mmol/L High 97-105 [facility] CO2 [Moles/Vol] 23 mmol/L Normal 22-30 [facility] Creatinine [Mass/Vol] 0.66 mg/dL Normal 0.58-0.96 [facility] eGFR- Amer. >60 Normal [facility] eGFR-All Other Races >60 Normal [facility] Comment on above: Result Comment: eGFR (Estimated GFR) Units of measure: mL/min/1.73 meters squared eGFR is derived from the reexpressed MDRD Study equation using the following parameters: serum creatinine, age, gender and race. The creatinine assay has been calibrated to be traceable to IDMS. An eGFR <60 mL/min/1.73m2 for >3 months is consistent with chronic kidney disease. Refer to KDOQI guidelines for clinical interpretation. In patients with unstable renal function, e.g. those with acute kidney injury, the eGFR may not accurately reflect actual GFR. Note: On 07/12/2021, the eGFR calculation will be updated to the NKF-ASN Task Force recommended 2020 CKD-EPI creatinine equation which does not include a race variable. For more information or to access a 2020 CKD-EPI calculator, visit the National Kidney Foundation website at kidney.org/professionals/kdoqi/gfr_calculator. Glucose [Mass/Vol] 84 mg/dL Normal 74-99 [facility] Comment on above: Result Comment: The [place] Diabetes Association (ADA) provides guidance for cutoff values for fasting glucose and random glucose. The ADA defines fasting as no caloric intake for at least 8 hours. Fasting plasma glucose results between 100 to 125 mg/dL indicate increased risk for diabetes (prediabetes). Fasting plasma glucose results greater than or equal to 126 mg/dL meet the criteria for diagnosis of diabetes. In the absence of unequivocal hyperglycemia, results should be confirmed by repeat testing. In a patient with classic symptoms of hyperglycemia or hyperglycemic crisis, random plasma glucose results greater than or equal to 200 mg/dL meet the criteria for diagnosis of diabetes. Reference: Standards of Medical Care in Diabetes 2016, [place] [employer]. Diabetes Care. 2016.39(Suppl 1). Potassium [Moles/Vol] 3.5 mmol/L Low 3.7-5.1 [facility] Protein [Mass/Vol] 6.6 g/dL Normal 6.3-8.0 [facility] Sodium [Moles/Vol] 142 mmol/L Normal 136-144 [facility] Urea nitrogen [Mass/Vol] 11 mg/dL Normal 7-21 [facility] CBC and Differentialon 06-12 Abs Baso 0.03 k/uL Normal <0.11 [facility] Abs [place] 0.37 k/uL Normal <0.87 [facility] Abs Neut 3.14 k/uL Normal 1.45-7.50 [facility] Absolute nRBC <0.01 Normal <0.01 [facility] Basophils/100 WBC (Bld) 0.6 % Normal [facility] DTYPE Auto Diff Normal [facility] Eosinophils (Bld) [#/Vol] 0.07 10*3/uL Normal <0.46 [facility] Eosinophils/100 WBC (Bld) 1.5 % Normal [facility] Erythrocyte distribution width (RBC) [Ratio] 15.5 % High 11.5-15.0 [facility] Hematocrit (Bld) [Volume fraction] 33.9 % Low 36.0-46.0 [facility] Hemoglobin (Bld) [Mass/Vol] 11.1 g/dL Low 11.5-15.5 [facility] Lymphocytes (Bld) [#/Vol] 1.12 10*3/uL Normal 1.00-4.00 [facility] Lymphocytes/100 WBC (Bld) 23.6 % Normal [facility] MCH 31.6 pG Normal 26.0-34.0 [facility] MCHC (RBC) [Mass/Vol] 32.7 g/dL Normal 30.5-36.0 [facility] MCV (RBC) [Entitic vol] 96.6 fL Normal 80.0-100.0 [facility] Monocytes/100 WBC (Bld) 7.8 % Normal [facility] Neutrophils/100 WBC (Bld) 66.5 % Normal [facility] NRBCs 0.0 /100 WBC Normal 0 [facility] Platelet mean volume (Bld) [Entitic vol] 9.9 fL Normal 9.0-12.7 [facility] Platelets (Bld) [#/Vol] 191 10*3/uL Normal 150-400 [facility] RBC (Bld) [#/Vol] 3.51 10*6/uL Low 3.90-5.20 [facility] WBC (Bld) [#/Vol] 4.74 10*3/uL Normal 3.70-11.00 [facility] Comp Metabolic Panelon 06-12 Albumin [Mass/Vol] 4.3 g/dL Normal 3.9-4.9 [facility] ALP [Catalytic activity/Vol] 70 U/L Normal 34-123 [facility] ALT [Catalytic activity/Vol] 6 U/L Low 7-38 [facility] Anion gap [Moles/Vol] 13 mmol/L Normal 9-18 [facility] AST [Catalytic activity/Vol] 17 U/L Normal 13-35 [facility] Bilirubin [Mass/Vol] 0.7 mg/dL Normal 0.2-1.3 [facility] Calcium [Mass/Vol] 8.8 mg/dL Normal 8.5-10.2 [facility] Chloride [Moles/Vol] 104 mmol/L Normal 97-105 [facility] CO2 [Moles/Vol] 23 mmol/L Normal 22-30 [facility] Creatinine [Mass/Vol] 0.67 mg/dL Normal 0.58-0.96 [facility] eGFR- Amer. >60 Normal [facility] eGFR-All Other Races >60 Normal [facility] Comment on above: Result Comment: eGFR (Estimated GFR) Units of measure: mL/min/1.73 meters squared eGFR is derived from the reexpressed MDRD Study equation using the following parameters: serum creatinine, age, gender and race. The creatinine assay has been calibrated to be traceable to IDMS. An eGFR <60 mL/min/1.73m2 for >3 months is consistent with chronic kidney disease. Refer to KDOQI guidelines for clinical interpretation. In patients with unstable renal function, e.g. those with acute kidney injury, the eGFR may not accurately reflect actual GFR. Note: On 07/12/2021, the eGFR calculation will be updated to the NKF-ASN Task Force recommended 2020 CKD-EPI creatinine equation which does not include a race variable. For more information or to access a 2020 CKD-EPI calculator, visit the National Kidney Foundation website at kidney.org/professionals/kdoqi/gfr_calculator. Glucose [Mass/Vol] 80 mg/dL Normal 74-99 [facility] Comment on above: Result Comment: The [place] Diabetes [employer] (ADA) provides guidance for cutoff values for fasting glucose and random glucose. The ADA defines fasting as no caloric intake for at least 8 hours. Fasting plasma glucose results between 100 to 125 mg/dL indicate increased risk for diabetes (prediabetes). Fasting plasma glucose results greater than or equal to 126 mg/dL meet the criteria for diagnosis of diabetes. In the absence of unequivocal hyperglycemia, results should be confirmed by repeat testing. In a patient with classic symptoms of hyperglycemia or hyperglycemic crisis, random plasma glucose results greater than or equal to 200 mg/dL meet the criteria for diagnosis of diabetes. Reference: Standards of Medical Care in Diabetes 2016, [place] [employer]. Diabetes Care. 2016.39(Suppl 1). Potassium [Moles/Vol] 3.5 mmol/L Low 3.7-5.1 [facility] Protein [Mass/Vol] 6.3 g/dL Normal 6.3-8.0 [facility] Sodium [Moles/Vol] 140 mmol/L Normal 136-144 [facility] Urea nitrogen [Mass/Vol] 9 mg/dL Normal 7-21 [facility] CNOVSPon 06-09-2021 CNOVSP Visit (SP) Office (H EMAWS) -- CHASTITYGRACIELA Lockhart ([id number]) 1970 F Date Time Provider Department 06/09/21 4:30 PM TOMMY FRENCH During your visit today, we recorded the following information about you: Tommy French DO 06/09/2021 4:36 PM Signed AMBULATORY TELEPHONE VISIT Graciela Haywood has consented to this telephone encounter. [...] was not observed. The tumor specimen was ER/IN positive (greater than 95%, moderate) and IN positive (27%, weak). The tumor was HER-2 [...] Tumor limited to kidney Margin Status: ? (more content not included)... Normal [facility] CNPNon 06-09-2021 CNPN Telephone (HEMAWS) -- GRACIELA HAYWOOD ([id number]) 1970 F Date Time Provider Department 06/09/21 TOMMY FRENCH During your visit today, we recorded the following information about you: Karen Anderson LPN 06/09/2021 1:27 PM Signed Please change today's OV to a phone appointment at the same time. Please call [phone]. Please reschedule lab/port visit to @ 4:15. No need to notify patient, she is aware. Karen Stokes Benchoff Pss 06/09/2021 1:33 PM Signed Completed. Allergies As of Date: 06/09/2021 Noted Allergy Reaction PERCOCET (OXYCODONE-ACETAMINOPHEN)1 11 - Vomiting Date Reviewed: 05/19/2021 Reviewed by: Stephanie Howell, TEODORA - Fully Assessed Reason for Visit: Appointment [186] Prescriptions as of 06/10/2021 - iv contrast (will be provided with [...] as designated per enteric contrast guidelines - capecitabine (XELODA) 500 mg tablet TAKE 2 TABLETS (1,000 MG) BY MOUTH TWICE DAILY FOR 14 DAYS ON AND 7 DAYS OFF EVERY 21 DAY CYCLE. - potassium chloride ER (KLOR-CON M20) 20 mEq tablet Take 1 tablet by mouth twice daily. - famotidine (PEPCID) 20 mg tablet Take [...] heparin allergy). De-access port on treatment completion. Problem List As Of Date 06/09/2021 Noted Resolved Left breast mass [N63.20] 08/30/2015 09/12/2015 Breast cancer metastasized to axillary lymph no*09/12/2015 Cancer of overlapping sites of left female domo*09/12/2015 02/08/2017 Bone metastases (HCC) [C79.51] 01/15/2016 Malignant neoplasm of right kidney, except jessie*02/01/2017 Malignant neoplasm of overlapping sites of left*02/05/2017 02/08/2017 Malignant neoplasm of overlapping sites of left*02/08/2017 Renal neoplasm [D49.519] 03/15/2017 10/21/2017 Liver metastasis (HCC) [C78.7] 10/21/2017 Dehydration [E86.0] 03/09/2018 Stomatitis and mucositis [K12.1, K12.30] 03/09/2018 Drug rash [L27.0] 09/13/2020 Encounter Status:Closed by KAREN ANDERSON LPN on 06/10/21 Normal [facility] CBC and Differentialon 05-19 Abs Baso 0.04 k/uL Normal <0.11 [facility] Abs [place] 0.49 k/uL Normal <0.87 [facility] Abs Neut 3.19 k/uL Normal 1.45-7.50 [facility] Absolute nRBC <0.01 Normal <0.01 [facility] Basophils/100 WBC (Bld) 0.8 % Normal [facility] DTYPE Auto Diff Normal [facility] Eosinophils (Bld) [#/Vol] 0.05 10*3/uL Normal <0.46 [facility] Eosinophils/100 WBC (Bld) 1.0 % Normal [facility] Erythrocyte distribution width (RBC) [Ratio] 16.2 % High 11.5-15.0 [facility] Hematocrit (Bld) [Volume fraction] 36.6 % Normal 36.0-46.0 [facility] Hemoglobin (Bld) [Mass/Vol] 12.1 g/dL Normal 11.5-15.5 [facility] Lymphocytes (Bld) [#/Vol] 1.37 10*3/uL Normal 1.00-4.00 [facility] Lymphocytes/100 WBC (Bld) 26.6 % [facility] [facility] M[facility] 31.6 pG Normal 26.0-34.0 [facility] MCHC (RBC) [Mass/Vol] 33.1 g/dL Normal 30.5-36.0 [facility] MCV (RBC) [Entitic vol] 95.6 fL Normal 80.0-100.0 [facility] Monocytes/100 WBC (Bld) 9.5 % Normal [facility] Neutrophils/100 WBC (Bld) 62.1 % Normal [facility] NRBCs 0.0 /100 WBC Normal 0 [facility] Platelet mean volume (Bld) [Entitic vol] 9.4 fL Normal 9.0-12.7 [facility] Platelets (Bld) [#/Vol] 165 10*3/uL Normal 150-400 [facility] RBC (Bld) [#/Vol] 3.83 10*6/uL Low 3.90-5.20 [facility] WBC (Bld) [#/Vol] 5.15 10*3/uL Normal 3.70-11.00 [facility] Comp Metabolic Panelon 05-19 Albumin [Mass/Vol] 4.7 g/dL Normal 3.9-4.9 [facility] ALP [Catalytic activity/Vol] 94 U/L Normal 34-123 [facility] ALT [Catalytic activity/Vol] 8 U/L Normal 7-38 [facility] Anion gap [Moles/Vol] 14 mmol/L Normal 9-18 [facility] AST [Catalytic activity/Vol] 17 U/L Normal 13-35 [facility] Bilirubin [Mass/Vol] 0.8 mg/dL Normal 0.2-1.3 [facility] Calcium [Mass/Vol] 9.3 mg/dL Normal 8.5-10.2 [facility] Chloride [Moles/Vol] 107 mmol/L High 97-105 [facility] CO2 [Moles/Vol] 21 mmol/L Low 22-30 [facility] Creatinine [Mass/Vol] 0.71 mg/dL Normal 0.58-0.96 [facility] eGFR- Amer. >60 Normal [facility] eGFR-All Other Races >60 Normal [facility] Comment on above: Result Comment: eGFR (Estimated GFR) Units of measure: mL/min/1.73 meters squared eGFR is derived from the reexpressed MDRD Study equation using the following parameters: serum creatinine, age, gender and race. The creatinine assay has been calibrated to be traceable to IDMS. An eGFR <60 mL/min/1.73m2 for >3 months is consistent with chronic kidney disease. Refer to KDOQI guidelines for clinical interpretation. In patients with unstable renal function, e.g. those with acute kidney injury, the eGFR may not accurately reflect actual GFR. Note: On 07/12/2021, the eGFR calculation will be updated to the NKF-ASN Task Force recommended 2020 CKD-EPI creatinine equation which does not include a race variable. For more information or to access a 2020 CKD-EPI calculator, visit the National Kidney Foundation website at kidney.org/professionals/kdoqi/gfr_calculator. Glucose [Mass/Vol] 86 mg/dL Normal 74-99 [facility] Comment on above: Result Comment: The [place] Diabetes Association (ADA) provides guidance for cutoff values for fasting glucose and random glucose. The ADA defines fasting as no caloric intake for at least 8 hours. Fasting plasma glucose results between 100 to 125 mg/dL indicate increased risk for diabetes (prediabetes). Fasting plasma glucose results greater than or equal to 126 mg/dL meet the criteria for diagnosis of diabetes. In the absence of unequivocal hyperglycemia, results should be confirmed by repeat testing. In a patient with classic symptoms of hyperglycemia or hyperglycemic crisis, random plasma glucose results greater than or equal to 200 mg/dL meet the criteria for diagnosis of diabetes. Reference: Standards of Medical Care in Diabetes 2016, [place] [employer]. Diabetes Care. 2016.39(Suppl 1). Potassium [Moles/Vol] 3.8 mmol/L Normal 3.7-5.1 [facility] Protein [Mass/Vol] 6.7 g/dL Normal 6.3-8.0 [facility] Sodium [Moles/Vol] 142 mmol/L Normal 136-144 [facility] Urea nitrogen [Mass/Vol] 9 mg/dL Normal 7-21 [facility] CNOVon 05-08-2021 CNOV Office Visit (GENSWS ) -- GRACIELA HAYWOOD ([id number]) 1970 F Date Time Provider Department 05/08/21 2:30 PM NORMA RENEES During your visit today, we recorded the following information about you: Temperature Pulse Blood pressure Weight 97.9 degrees 95/minute 119/81 59 kg Height 1.651 m Tiff Wayne 05/08/2021 2:36 PM Signed REVIEW [...] Respiratory: The patient denies tuberculosis, denies pneumonia, denies frequent cough, denies pulmonary embolism, denies shortness of breath, and denies coughing up blood. Gastrointestinal: The patient denies difficulty swallowing, denies acid reflux, denies ulcers, denies vomiting, denies jaundice/hepatitis, denies gallbladder problems, denies black or tarry stools, denies hemorrhoids, denies bleeding from rectum, denies diverticulitis, denies constipation, denies diarrhea, denies loss of stool control, and denies hernias. Kidney/Bladder: The patient denies kidney stones, denies urine infections, and denies bloody urine. Skin: The patient denies a history of skin cancer, denies bleeding/changing moles, and denies a history of skin rash. Neurologic: The patient denies a history of epilepsy/convulsions, denies headaches, denies head/spinal injuries, and denies stroke/TIA. Psychiatric: The patient denies psychiatric medications, denies depression, and denies voices, denies substance abuse. Endocrine: The patient denies thyroid disorders, denies diabetes, and denies hormonal problems. Hematologic: The patient denies a history of bruising, denies bleeding, and denies anemia, denies blood clots. Infections: The patient denies a history of measles and mumps, denies rheumatic fever, and denies sexually transmitted diseases. Musculoskeletal: The patient denies back pain/injury, denies back problems, denies sciatica, denies knee/foot trouble, denies arthritis, or denies gout. When was patient's last Mammogram screening? 08/2015 Last Colonoscopy: None Tiff Renee PA-C 05/08/2021 3:47 PM Signed HISTORY AND PHYSICAL Graciela Lockhart Chastity 1970 REFERRING PHYSICIAN: Tommy French DO CHIEF COMPLAINT: Consult (Colonoscopy) HPI: The patient is a 51 year old female referred for endoscopy. Graciela notes no colon complaints. Patient denies any change in bowel habits, weight changes, blood in stools, black tarry stools or abdominal pain. Denies family history of colon issues. The patient notes no upper GI complaints. Graciela has not undergone prior endoscopy. Patient's past [...] and Rectal, Enteric Tube, Stoma or Indwelling (more content not included)... [facility] 05-08-2021 CNPN Telephone (GENSWS) -- GRACIELA HAYWOOD ([id number]) 1970 F Date Time Provider Department 05/08/21 ZACKERY OLIVEROS During your visit today, we recorded the following information about you: Kyle Frias 05/08/2021 3:47 PM Signed 07-07-[address] Oliveros, patient could not accommodate Dr Kwon and chose to see Dr Oliveros on a Wednesday. Patient currently taking Eliquis and will need to stop several days before the procedure. Dr Oliveira, is the patient medically able to stop her Eliquis 5 days before her colonoscopy and resume after procedure? Thank you Kyle French DO 05/08/2021 3:59 PM Signed Eliquis only needs to be held 2 days prior to a colonoscopy but general surgeons prefer 5 days so that would be okay. DO Karen Linder LPN 05/08/2021 4:02 PM Signed Message left for patient to contact office for medication instructions. Karen Anderson SALAS Karen Anderson SALAS 05/08/2021 4:17 PM Signed Patient notified of Eliquis instructions and verbalized understanding. Will hold for 5 days prior to colonoscopy. Karen Anderson SALAS Allergies As of Date: 05/08/2021 Noted Allergy Reaction PERCOCET (OXYCODONE-ACETAMINOPHEN)1 11 - Vomiting Date Reviewed: 05/08/2021 Reviewed by: Norma Renee PA-C - Fully Assessed Reason for Visit: 07-07-[address] Oliveros [Other] Prescriptions as of 05/08/2021 - peg 3350-Electrolytes (GOLYTELY) 236-22.74-6.74 -5.86 gram suspension Take 4,000 mL by mouth one time only for 1 dose. - potassium chloride ER (KLOR-CON M20) 20 [...] heparin allergy). De-access port on treatment completion. Problem List As Of Date 05/08/2021 Noted Resolved Left breast mass [N63.20] 08/30/2015 09/12/2015 Breast cancer metastasized to axillary lymph no*09/12/2015 Cancer of overlapping sites of left female domo*09/12/2015 02/08/2017 Bone metastases (HCC) [C79.51] 01/15/2016 Malignant neoplasm of right kidney, except jessie*02/01/2017 Malignant neoplasm of overlapping sites of left*02/05/2017 02/08/2017 Malignant neoplasm of overlapping sites of left*02/08/2017 Renal neoplasm [D49.519] 03/15/2017 10/21/2017 Liver metastasis (HCC) [C78.7] 10/21/2017 Dehydration [E86.0] 03/09/2018 Stomatitis and mucositis [K12.1, K12.30] 03/09/2018 Drug rash [L27.0] 09/13/2020 Encounter Status:Closed by KAREN ANDERSON LPN on 05/08/21 [facility] Telephone (MARLIN) -- GRACIELA HAYWOOD ([id number]) 1970 F Date Time Provider Department 05/08/21 TOMMY FRENCH During your visit today, we recorded the following information about you: Hortensia Foss 05/08/2021 10:38 AM Signed Patient called questioning some up coming appointments. She can be reached at [phone] Thank you Hortensia Foss Mandy Ellis 05/08/2021 11:18 AM Signed Spoke with patient, advising what was in the AVS and that the appointments are most likely to monitor her since her medication dosage was reduced. Patient stated understanding. Mandy Red Allergies As of Date: 05/08/2021 Noted Allergy Reaction PERCOCET (OXYCODONE-ACETAMINOPHEN)1 11 - Vomiting Date Reviewed: 04/28/2021 Reviewed by: Tommy French DO - Fully Assessed Reason for Visit: Appointment [186] Prescriptions as of 05/08/2021 - potassium chloride ER (KLOR-CON M20) 20 [...] heparin allergy). De-access port on treatment completion. Problem List As Of Date 05/08/2021 Noted Resolved Left breast mass [N63.20] 08/30/2015 09/12/2015 Breast cancer metastasized to axillary lymph no*09/12/2015 Cancer of overlapping sites of left female domo*09/12/2015 02/08/2017 Bone metastases (HCC) [C79.51] 01/15/2016 Malignant neoplasm of right kidney, except jessie*02/01/2017 Malignant neoplasm of overlapping sites of left*02/05/2017 02/08/2017 Malignant neoplasm of overlapping sites of left*02/08/2017 Renal neoplasm [D49.519] 03/15/2017 10/21/2017 Liver metastasis (HCC) [C78.7] 10/21/2017 Dehydration [E86.0] 03/09/2018 Stomatitis and mucositis [K12.1, K12.30] 03/09/2018 Drug rash [L27.0] 09/13/2020 Encounter Status:Closed by MANDY RED on 05/08/[address] [facility] CNOVSP Visit (SP) Office (H EMAWS) -- GRACIELA HAYWOOD ([id number]) 1970 F Date Time Provider Department 04/28/21 4:10 PM TOMMY FRENCH During your visit today, we recorded the following information about you: Temperature Pulse Blood pressure Weight 97.6 degrees 77/minute 116/77 56.5 kg Tommy French DO 04/28/2021 8:29 PM Signed Diagnosis: 1) Breast cancer. 2) Right renal [...] was not observed. The tumor specimen was ER/IN positive (greater than 95%, moderate) and IN positive (27%, weak). The tumor was HER-2 [...] Status: ? ? ? Uninvolved by invasive carci (more content not included)... [facility] 04-15-2021 CNPN Telephone (HEMAWS) -- HAYWOODGRACIELA ([id number]) 1970 F Date Time Provider Department 04/15/21 TOMMY FRENCH During your visit today, we recorded the following information about you: Tommy French DO 04/15/2021 9:07 AM Signed Has she been missing doses of potassium? DO Viky Linder LPN 04/15/2021 10:56 AM Signed Left detailed message on identified voicemail , Has she been taking potassium ? Instructed to call office Viky Hogan LPN' Viky Hogan LPN 04/15/2021 11:30 AM Signed Spoke with pt. States she had acutally gone with out the medication for 2 days prior to having her labs done, She did restart on Wednesday.2 tablets daily. Does need refill . Sent to her mail order. SALAS Mackenzie DO 04/15/2021 1:03 PM Signed The following approved medication requests have been transmitted electronically. Signed Prescriptions Disp Refills potassium chloride ER (KLOR-CON M20) 20 mEq tablet 180 tablet 2 Sig: Take 1 tablet by mouth twice daily. KAUSHAL: No Authorizing Provider: TOMMY FRENCH DO Allergies As of Date: 04/15/2021 Noted Allergy Reaction PERCOCET (OXYCODONE-ACETAMINOPHEN)1 11 - Vomiting Date Reviewed: 04/11/2021 Reviewed by: Adore Diaz, (R) - Fully Assessed Reason for Visit: Results [95] Order(s):potassium chloride ER (KLOR-CON M20) 20 mEq tabletTake 1 tablet by mouth twice daily.Disp: 180 tabletRfl: 2 Prescriptions as of 04/15/2021 - potassium chloride ER (KLOR-CON M20) 20 [...] heparin allergy). De-access port on treatment completion. Problem List As Of Date 04/15/2021 Noted Resolved Left breast mass [N63.20] 08/30/2015 09/12/2015 Breast cancer metastasized to axillary lymph no*09/12/2015 Cancer of overlapping sites of left female domo*09/12/2015 02/08/2017 Bone metastases (HCC) [C79.51] 01/15/2016 Malignant neoplasm of right kidney, except jessie*02/01/2017 Malignant neoplasm of overlapping sites of left*02/05/2017 02/08/2017 Malignant neoplasm of overlapping sites of left*02/08/2017 Renal neoplasm [D49.519] 03/15/2017 10/21/2017 Liver metastasis (HCC) [C78.7] 10/21/2017 Dehydration [E86.0] 03/09/2018 Stomatitis and mucositis [K12.1, K12.30] 03/09/2018 Drug rash [L27.0] 09/13/2020 Prescriptions ordered this encounter Disp Refills Start End POTASSIUM CHLORIDE ER 20 MEQ TABLET,* 180 * 2 04/15/2021 Route: ORAL Sig: Take 1 tablet by mouth twice daily. Medications Discontinued During This Encounter Prescriptions - KLOR-CON M20 20 mEq tablet (Discontinued) TAKE 1 TABLET TWICE A DAY Encounter Status:Closed by TOMMY FRENCH on 04/15/21 [facility] CBC and Differentialon 04-14 Abs Baso 0.03 k/uL Normal <0.11 [facility] Comment on above: Performed By: #### L IPA ####[place] [address] [place], [place] [phone] Abs [place] 0.23 k/uL Normal <0.87 [facility] Comment on above: Performed By: #### L IPA ####[place] [address] [place], [place] [phone] Abs Neut 2.24 k/uL Normal 1.45-7.50 [facility] Comment on above: Performed By: #### L IPA ####[facility] [place] [place], [place] [phone] Absolute nRBC <0.01 Normal <0.01 [facility] Comment on above: Performed By: #### L IPA ####[facility] [place] [place], [place] [phone] Basophils/100 WBC (Bld) 0.8 % Normal [facility] Comment on above: Performed By: #### L IPA ####[place] [address] [place], [place] [phone] DTYPE Auto Diff Normal [facility] Comment on above: Performed By: #### L IPA ####[place] [address], [place] [phone] Eosinophils (Bld) [#/Vol] 0.05 10*3/uL Normal <0.46 [facility] Comment on above: Performed By: #### L IPA ####[place] [address] [address] [phone] Eosinophils/100 WBC (Bld) 1.4 % Normal [facility] Comment on above: Performed By: #### L IPA ####[place] [address] [place], [place] [phone] Erythrocyte distribution width (RBC) [Ratio] 17.0 % High 11.5-15.0 [facility] Comment on above: Performed By: #### L IPA ####[place] [address] [place], [place] [phone] Hematocrit (Bld) [Volume fraction] 32.5 % Low 36.0-46.0 [facility] Comment on above: Performed By: #### L IPA ####[place] [address] [place] [place], [place] [phone] Hemoglobin (Bld) [Mass/Vol] 10.6 g/dL Low 11.5-15.5 [facility] Comment on above: Performed By: #### L IPA ####[place] [address], [place] [phone] Lymphocytes (Bld) [#/Vol] 0.97 10*3/uL Low 1.00-4.00 [facility] Comment on above: Performed By: #### L IPA ####[place] [address], [place] [phone] Lymphocytes/100 WBC (Bld) 27.5 % Normal [facility] Comment on above: Performed By: #### L IPA ####[place] [id number], [place] [phone] MCH 30.2 pG Normal 26.0-34.0 [facility] Comment on above: Performed By: #### L IPA ####[place] [address], [place] [phone] MCHC (RBC) [Mass/Vol] 32.6 g/dL Normal 30.5-36.0 [facility] Comment on above: Performed By: #### L IPA ####[place] [address], [place] [phone] MCV (RBC) [Entitic vol] 92.6 fL Normal 80.0-100.0 [facility] Comment on above: Performed By: #### L IPA ####[place] [address], [place] [phone] Monocytes/100 WBC (Bld) 6.5 % Normal [facility] Comment on above: Performed By: #### L IPA ####[place] [address], [place] [phone] Neutrophils/100 WBC (Bld) 63.8 % Normal [facility] Comment on above: Performed By: #### L IPA ####[place] [address], [place] [phone] NRBCs 0.0 /100 WBC Normal 0 [facility] Comment on above: Performed By: #### L IPA ####[place] [address], [place] [phone] Platelet mean volume (Bld) [Entitic vol] 9.8 fL Normal 9.0-12.7 [facility] Comment on above: Performed By: #### L IPA ####[place] [address], [place] [phone] Platelets (Bld) [#/Vol] 172 10*3/uL Normal 150-400 [facility] Comment on above: Performed By: #### L IPA ####[facility] [place] [place], [place] [phone] RBC (Bld) [#/Vol] 3.51 10*6/uL Low 3.90-5.20 [facility] Comment on above: Performed By: #### L IPA ####[facility] [place] [place], [place] [phone] WBC (Bld) [#/Vol] 3.53 10*3/uL Low 3.70-11.00 [facility] Comment on above: Performed By: #### L IPA ####[facility] [place] [place], [place] [phone] CT ABD/PEL W IVCONon -29-[address] ABD/PEL W IVCON * * *Final Report* * * DATE OF EXAM: Apr 14 2021 11:45AM [facility] 0530 - CT ABD/PEL W IVCON / PROCEDURE REASON: multiple diagnoses * * * * Physician Interpretation * * * * EXAMINATION: CT ABDOMEN AND PELVIS WITH IV CONTRAST CLINICAL HISTORY: Metastatic breast carcinoma. Follow-up. TECHNIQUE: CT of the abdomen and pelvis was performed using standard technique, scanning from just above the dome of the diaphragm to the symphysis pubis. MQ: CTAP_3 Contrast: Other: 100 ml of Omnipaque 300 Oral: 50 ml of 50ML Omnipaque [address] Radiation dose: Integrated Dose-length product (DLP) for this visit = 375 mGy*cm. CT Dose Reduction Employed: Automated exposure control(AEC) and iterative recon COMPARISON: Comparison is made to prior CT abdomen pelvis dated 09/09/2020, 19 March 2020 and 25 July 2019 RESULT: Liver: No hepatomegaly. Multiple punctate subcentimeter low density lesions throughout the left and right hepatic lobes are overall stable. 1 cm lesion in segment 8 (17:8) is unchanged. 13 x 9 mm lesion within segment 7 is also unchanged. Biliary: The gallbladder is undistended without wall thickening, pericholecystic fluid or inflammatory change. Negative biliary dilatation. Spleen: No splenomegaly. Pancreas: Unremarkable pancreas. No focal masses or ductal dilatation. Adrenals: Normal adrenal glands. Kidneys: Both kidneys are normal in size, contour and position and promptly and symmetrically excrete contrast material. There are no obstructive changes. There are no suspicious solid masses. Stable partially exophytic 12 mm lesion projecting from the midpole left kidney posteriorly continues to measure slightly above water density but is grossly unchanged. This likely represents a hyperdense cyst. Other punctate water density foci are too small to fully characterize but appear unchanged. GI tract: The bowel gas pattern is nonobstructive. The right colon appears to be redundant with the cecum on a long mesenteric pedicle which on today's examination measures in the deep pelvis. Amorphous filling defects throughout the right colon suggests mixture of enteric contrast with stool. Questionable subtle mucosal thickening at the proximal ascending colon. There is a short segment area of filling defect with questionable shouldering on either side of the lumen. This finding was not present in August 2020 and a focus of peristalsis is favored; However, intraluminal mass cannot be excluded. (32:12). Lymph nodes: No pathologic retroperitoneal, central mesenteric or pelvic lymph nodes by size criteria. Mesentery/Peritoneum: No abnormal mass or ascites. Retroperitoneum: No retroperitoneal mass or pathologic adenopathy. Vasculature: The aorta is normal course and caliber. The mesenteric vessels are patent. Pelvis: No mass or pathologic adenopathy. Normal uterine and adnexal structures. Bones/Soft Tissues: Osteopenic with lytic sclerotic changes involving the inferior aspect of L2 and the superior aspect of T12. Lower thorax: Dictated separately Sales Product Specialist (topogram) images: No additional findings. IMPRESSION: Stable hepatic masses. Stable bony metastases. Fecal retention which is mixed with enteric contrast within the right colon resulting in amorphous multifocal areas of filling defect. Submucosal nodularity at the proximal ascending colon could represent some mucosal thickening. Best seen on the coronal images is a short segment area of luminal narrowing with questionable shouldering. It has not been previously present and small focus of peristalsis is favored however colonic mass cannot be excluded based on these images. Acuity: Actionable Findings: Digestive Tract Routing Code: GI_1 Recommendation: Unlisted Recommendation (see report) Time Frame: at the discretion of the clinical team. Canoe Maker: SENIA Transcribe Date/Time: Apr 14 2021 2:52P Dictated by : MORTEZA MARTINEZ MD This examination was interpreted and the report reviewed and electronically signed by: MORTEZA MARTINEZ MD on Apr 14 2021 8:17PM EST [id number] [facility] CT CHEST W IVCONon 1 CT CHEST W IVCON * * *Final Report* * * DATE OF EXAM: Apr 14 2021 11:45AM [facility] 0539 - CT CHEST W IVCON / PROCEDURE REASON: multiple diagnoses * * * * Physician Interpretation * * * * EXAMINATION: CHEST CT WITH CONTRAST CLINICAL HISTORY: Invasive breast cancer, stage IV, post chemotherapy, assess tx response. Technique: Spiral CT acquisition of the chest from the thoracic inlet to the upper abdomen following IV contrast. MQ: CTCW_6 Contrast: 100 mL Omnipaque [address] Radiation dose: Integrated Dose-length product (DLP) for this visit = 375 mGy*cm CT Dose Reduction Employed: Automated exposure control(AEC) and iterative recon Comparison: Comparison is made to prior CT chest dated 09 September 2020, 03/19/2020, 25 July 2019 and 02/06/2019 RESULT: Limitations: None. Lines, tubes, and devices: Mediport catheter terminates near the cavoatrial junction. Lung parenchyma and airways: The central airways are patent. Stable 2 mm noncalcified nodule right middle lobe (125:9). No new pulmonary nodules. No suspicious pulmonary masses or airspace consolidations. Pleural space: No pleural effusion. No pleural thickening. Lower neck, lymph nodes, and mediastinum: The imaged thyroid gland is normal. No lymphadenopathy in the supraclavicular, axillary, mediastinal, or hilar regions. Heart, pericardium, and thoracic vessels: The thoracic aorta and main pulmonary artery are normal in caliber. The cardiac chambers are normal in size. No coronary artery atherosclerotic calcifications are noted, although the study is not optimized for coronary assessment. No pericardial effusion or thickening. Bones and soft tissues: Bilateral mastectomy changes again noted. The bony structures again demonstrate multiple sclerotic foci specifically within the superior manubrium, T7 and T6. Developmental T8 butterfly vertebra is unchanged. Partially visualized sclerotic lucent lesion within the inferior left lateral L2 vertebral body again noted. Upper abdomen: Dictated separately Sales Product Specialist (topogram) images: No additional findings. IMPRESSION: Stable CT scan of the chest. No pathologic mediastinal or hilar adenopathy. Stable 2 mm right middle lobe nodule. Otherwise there are no pulmonary nodules or suspicious masses. Multiple sclerotic changes within the manubrium and thoracic spine consistent with known osseous metastases. Findings appear stable. Canoe Maker: SENIA Transcribe Date/Time: Apr 14 2021 2:57P Dictated by : MORTEZA MARTINEZ MD This examination was interpreted and the report reviewed and electronically signed by: OMRTEZA MARTINEZ MD on Apr 14 2021 7:54PM EST [id number] [facility] Comp Metabolic Panelon 04-14 Albumin [Mass/Vol] 4.3 g/dL Normal 3.9-4.9 [facility] Comment on above: Performed By: #### L IPA ####[id number] [place], [place] [phone] ALP [Catalytic activity/Vol] 60 U/L Normal 34-123 [facility] Comment on above: Performed By: #### L IPA ####[address] [phone] ALT [Catalytic activity/Vol] 6 U/L Low 7-38 [facility] Comment on above: Performed By: #### L IPA ####[address] [place], [place] [phone] Anion gap [Moles/Vol] 14 mmol/L Normal 9-18 [facility] Comment on above: Performed By: #### L IPA ####[facility] [place] [place], [place] [phone] AST [Catalytic activity/Vol] 15 U/L Normal 13-35 [facility] Comment on above: Performed By: #### L IPA ####[facility] [place] [place], [place] [phone] Bilirubin [Mass/Vol] 0.9 mg/dL Normal 0.2-1.3 [facility] Comment on above: Performed By: #### L IPA ####[address] [place], [place] [phone] Calcium [Mass/Vol] 8.6 mg/dL Normal 8.5-10.2 [facility] Comment on above: Performed By: #### L IPA ####[address] [phone] Chloride [Moles/Vol] 106 mmol/L High 97-105 [facility] Comment on above: Performed By: #### L IPA ####[place] [address] [place] [phone] CO2 [Moles/Vol] 23 mmol/L Normal 22-30 [facility] Comment on above: Performed By: #### L IPA ####[address] [phone] Creatinine [Mass/Vol] 0.60 mg/dL Normal 0.58-0.96 [facility] Comment on above: Performed By: #### L IPA ####[address] [phone] eGFR- Amer. >60 Normal [facility] Comment on above: Performed By: #### L IPA ####[address] [phone] eGFR-All Other Races >60 Normal [facility] Comment on above: Result Comment: eGFR (Estimated GFR) Units of measure: mL/min/1.73 meters squared eGFR is derived from the reexpressed MDRD Study equation using the following parameters: serum creatinine, age, gender and race. The creatinine assay has been calibrated to be traceable to IDMS. An eGFR <60 mL/min/1.73m2 for >3 months is consistent with chronic kidney disease. Refer to KDOQI guidelines for clinical interpretation. In patients with unstable renal function, e.g. those with acute kidney injury, the eGFR may not accurately reflect actual GFR. Note: On 07/12/2021, the eGFR calculation will be updated to the NKF-ASN Task Force recommended 2020 CKD-EPI creatinine equation which does not include a race variable. For more information or to access a 2020 CKD-EPI calculator, visit the National Kidney Foundation website at kidney.org/professionals/kdoqi/gfr_calculator. Performed By: #### L IPA ####[address] [phone] Glucose [Mass/Vol] 80 mg/dL Normal 74-99 [facility] Comment on above: Result Comment: The [place] Diabetes [employer] (ADA) provides guidance for cutoff values for fasting glucose and random glucose. The ADA defines fasting as no caloric intake for at least 8 hours. Fasting plasma glucose results between 100 to 125 mg/dL indicate increased risk for diabetes (prediabetes). Fasting plasma glucose results greater than or equal to 126 mg/dL meet the criteria for diagnosis of diabetes. In the absence of unequivocal hyperglycemia, results should be confirmed by repeat testing. In a patient with classic symptoms of hyperglycemia or hyperglycemic crisis, random plasma glucose results greater than or equal to 200 mg/dL meet the criteria for diagnosis of diabetes. Reference: Standards of Medical Care in Diabetes 2016, [place] [employer]. Diabetes Care. 2016.39(Suppl 1). Performed By: #### L IPA ####[address] [phone] Potassium [Moles/Vol] 3.0 mmol/L Low 3.7-5.1 [facility] Comment on above: Performed By: #### L IPA ####[address] [phone] Protein [Mass/Vol] 6.2 g/dL Low 6.3-8.0 [facility] Comment on above: Performed By: #### L IPA ####[address] [phone] Sodium [Moles/Vol] 143 mmol/L Normal 136-144 [facility] Comment on above: Performed By: #### L IPA ####[address] [phone] Urea nitrogen [Mass/Vol] 12 mg/dL Normal 7-21 [facility] Comment on above: Performed By: #### L IPA ####[facility] [place] [place], [place] [phone] Lipaseon 04-14-2021 Lipase [Catalytic activity/Vol] 19 U/L Normal 16-61 [facility] Comment on above: Performed By: #### L IPA ####[facility] [address] [place], [place] [phone] Magnesiumon 04-14-2021 Magnesium [Mass/Vol] 1.7 mg/dL Normal 1.7-2.3 [facility] Comment on above: Performed By: #### L IPA ####[facility] [place] [place], [place] [phone] CNPYudi 02-13-2021 DAVID Telephone (HEMAWS) -- GRACIELA HAYWOOD ([id number]) 1970 F Date Time Provider Department 02/13/21 TOMMY FRENCH HEMAWS During your visit today, we recorded the following information about you: Susy Gardner Pss 02/13/2021 8:30 AM Signed [facility] called stating prior authorization is needed for Xeloda. Viky Hogan LPN 02/13/2021 9:31 AM Signed Spoke with pharmacist Diana @ [facility] specialty , they are working on rx with the insurance carrier, as authorization had been obtained on 02/04 they will reach out to us if further assistance is needed. Viky Hogan LPN Allergies As of Date: 02/13/2021 Noted Allergy Reaction PERCOCET (OXYCODONE-ACETAMINOPHEN)1 11 - Vomiting Date Reviewed: 01/27/2021 Reviewed by: Tommy French DO - Fully Assessed Reason for Visit: Insurance Authorization [[id number]] Prescriptions as of 02/13/2021 - capecitabine (XELODA) 500 mg tablet TAKE 2 TABLETS (1,000 MG) BY MOUTH TWICE DAILY FOR 14 DAYS ON AND 7 DAYS OFF EVERY 21 DAY CYCLE. - KLOR-CON M20 20 mEq tablet TAKE 1 TABLET TWICE A DAY - famotidine (PEPCID) 20 mg tablet Take [...] heparin allergy). De-access port on treatment completion. Problem List As Of Date 02/13/2021 Noted Resolved Left breast mass [N63.20] 08/30/2015 09/12/2015 Breast cancer metastasized to axillary lymph no*09/12/2015 Cancer of overlapping sites of left female domo*09/12/2015 02/08/2017 Bone metastases (HCC) [C79.51] 01/15/2016 Malignant neoplasm of right kidney, except jessie*02/01/2017 Malignant neoplasm of overlapping sites of left*02/05/2017 02/08/2017 Malignant neoplasm of overlapping sites of left*02/08/2017 Renal neoplasm [D49.519] 03/15/2017 10/21/2017 Liver metastasis (HCC) [C78.7] 10/21/2017 Dehydration [E86.0] 03/09/2018 Stomatitis and mucositis [K12.1, K12.30] 03/09/2018 Drug rash [L27.0] 09/13/2020 Encounter Status:Closed by VIKY HOGAN on 02/13/21 [facility] OBSOLETEon 02-06-2021 OBSOLETE Refill (HEMANTONIO) -- GRACIELA HAYWOOD ([id number]) 1970 F Date Time Provider Department 02/06/21 TOMMY FRENCH During your visit today, we recorded the following information about you: Allergies As of Date: 02/06/2021 Noted Allergy Reaction PERCOCET (OXYCODONE-ACETAMINOPHEN)1 11 - Vomiting Date Reviewed: 01/27/2021 Reviewed by: Tommy French DO - Fully Assessed Reason for Visit: Refill Request [94] Prescriptions as of 02/17/2021 - capecitabine (XELODA) 500 mg tablet TAKE 2 TABLETS (1,000 MG) BY MOUTH TWICE DAILY FOR 14 DAYS ON AND 7 DAYS OFF EVERY 21 DAY CYCLE. - KLOR-CON M20 20 mEq tablet TAKE 1 TABLET TWICE A DAY - famotidine (PEPCID) 20 mg tablet Take [...] heparin allergy). De-access port on treatment completion. Problem List As Of Date 02/06/2021 Noted Resolved Left breast mass [N63.20] 08/30/2015 09/12/2015 Breast cancer metastasized to axillary lymph no*09/12/2015 Cancer of overlapping sites of left female domo*09/12/2015 02/08/2017 Bone metastases (HCC) [C79.51] 01/15/2016 Malignant neoplasm of right kidney, except jessie*02/01/2017 Malignant neoplasm of overlapping sites of left*02/05/2017 02/08/2017 Malignant neoplasm of overlapping sites of left*02/08/2017 Renal neoplasm [D49.519] 03/15/2017 10/21/2017 Liver metastasis (HCC) [C78.7] 10/21/2017 Dehydration [E86.0] 03/09/2018 Stomatitis and mucositis [K12.1, K12.30] 03/09/2018 Drug rash [L27.0] 09/13/2020 Encounter Status:Closed by VIKY HOGAN on 02/17/21 [facility] CNPNon 02-04-2021 CNPN Telephone (HEMAWS) -- GRACIELA HAYWOOD ([id number]) 1970 F Date Time Provider Department 02/04/21 TOMMY FRENCH During your visit today, we recorded the following information about you: Mary Jane Matute LPN 02/04/2021 4:59 PM Signed [place] approved for Xeloda. Approval faxed to [facility]. Mary Jane Matute LPN Allergies As of Date: 02/04/2021 Noted Allergy Reaction PERCOCET (OXYCODONE-ACETAMINOPHEN)1 11 - Vomiting Date Reviewed: 01/27/2021 Reviewed by: Tommy French DO - Fully Assessed Reason for Visit: Insurance Authorization [[id number]] Cmt: Xeloda Prescriptions as of 02/04/2021 - capecitabine (XELODA) 500 mg tablet TAKE 2 TABLETS (1,000 MG) BY MOUTH TWICE DAILY FOR 14 DAYS ON AND 7 DAYS OFF EVERY 21 DAY CYCLE. - KLOR-CON M20 20 mEq tablet TAKE 1 TABLET TWICE A DAY - famotidine (PEPCID) 20 mg tablet Take [...] heparin allergy). De-access port on treatment completion. Problem List As Of Date 02/04/2021 Noted Resolved Left breast mass [N63.20] 08/30/2015 09/12/2015 Breast cancer metastasized to axillary lymph no*09/12/2015 Cancer of overlapping sites of left female domo*09/12/2015 02/08/2017 Bone metastases (HCC) [C79.51] 01/15/2016 Malignant neoplasm of right kidney, except jessie*02/01/2017 Malignant neoplasm of overlapping sites of left*02/05/2017 02/08/2017 Malignant neoplasm of overlapping sites of left*02/08/2017 Renal neoplasm [D49.519] 03/15/2017 10/21/2017 Liver metastasis (HCC) [C78.7] 10/21/2017 Dehydration [E86.0] 03/09/2018 Stomatitis and mucositis [K12.1, K12.30] 03/09/2018 Drug rash [L27.0] 09/13/2020 Encounter Status:Closed by MARY JANE MATUTE LPN on 02/04/21 [facility] CBC and Differentialon 01-27 Abs Baso 0.03 k/uL Normal <0.11 [facility] Abs [place] 0.39 k/uL Normal <0.87 [facility] Abs Neut 3.03 k/uL Normal 1.45-7.50 [facility] Absolute nRBC <0.01 Normal <0.01 [facility] Basophils/100 WBC (Bld) 0.6 % Normal [facility] DTYPE Auto Diff Normal [facility] Eosinophils (Bld) [#/Vol] 0.06 10*3/uL Normal <0.46 [facility] Eosinophils/100 WBC (Bld) 1.2 % Normal [facility] Erythrocyte distribution width (RBC) [Ratio] 15.3 % High 11.5-15.0 [facility] Hematocrit (Bld) [Volume fraction] 34.7 % Low 36.0-46.0 [facility] Hemoglobin (Bld) [Mass/Vol] 11.3 g/dL Low 11.5-15.5 [facility] Lymphocytes (Bld) [#/Vol] 1.41 10*3/uL Normal 1.00-4.00 [facility] Lymphocytes/100 WBC (Bld) 28.6 % Normal [facility] MCH 29.3 pG Normal 26.0-34.0 [facility] MCHC (RBC) [Mass/Vol] 32.6 g/dL Normal 30.5-36.0 [facility] MCV (RBC) [Entitic vol] 89.9 fL Normal 80.0-100.0 [facility] Monocytes/100 WBC (Bld) 7.9 % Normal [facility] Neutrophils/100 WBC (Bld) 61.7 % Normal [facility] NRBCs 0.0 /100 WBC Normal 0 [facility] Platelet mean volume (Bld) [Entitic vol] 9.7 fL Normal 9.0-12.7 [facility] Platelets (Bld) [#/Vol] 147 10*3/uL Low 150-400 [facility] RBC (Bld) [#/Vol] 3.86 10*6/uL Low 3.90-5.20 [facility] WBC (Bld) [#/Vol] 4.93 10*3/uL Normal 3.70-11.00 [facility] CNOVSPon 01-27-2021 CNOVSP Visit (SP) Office (H EMAWS) -- GRACIELA HAYWOOD ([id number]) 1970 F Date Time Provider Department 01/27/21 3:10 PM TOMMY FRENCH During your visit today, we recorded the following information about you: Temperature Pulse Blood pressure Weight 97.6 degrees 70/minute 102/68 59.9 kg Tommy French DO 01/27/2021 3:34 PM Signed Diagnosis: 1) Breast cancer. 2) Right renal [...] was not observed. The tumor specimen was ER/IN positive (greater than 95%, moderate) and IN positive (27%, weak). The tumor was HER-2 [...] Status: ? ? ? Uninvolved by invasive carcino (more content not included)... Normal [facility] Comp Metabolic Panelon 01-27 Albumin [Mass/Vol] 4.5 g/dL Normal 3.9-4.9 [facility] ALP [Catalytic activity/Vol] 72 U/L Normal 34-123 [facility] ALT [Catalytic activity/Vol] 5 U/L Low 7-38 [facility] Anion gap [Moles/Vol] 11 mmol/L Normal 9-18 [facility] AST [Catalytic activity/Vol] 18 U/L Normal 13-35 [facility] Bilirubin [Mass/Vol] 1.4 mg/dL High 0.2-1.3 [facility] Calcium [Mass/Vol] 8.9 mg/dL Normal 8.5-10.2 [facility] Chloride [Moles/Vol] 110 mmol/L High 97-105 [facility] CO2 [Moles/Vol] 21 mmol/L Low 22-30 [facility] Creatinine [Mass/Vol] 0.66 mg/dL Normal 0.58-0.96 [facility] eGFR- Amer. >60 Normal [facility] eGFR-All Other Races >60 Normal [facility] Comment on above: Result Comment: eGFR (Estimated GFR) Units of measure: mL/min/1.73 meters squared eGFR is derived from the reexpressed MDRD Study equation using the following parameters: serum creatinine, age, gender and race. The creatinine assay has been calibrated to be traceable to IDMS. An eGFR <60 mL/min/1.73m2 for >3 months is consistent with chronic kidney disease. Refer to KDOQI guidelines for clinical interpretation. In patients with unstable renal function, e.g. those with acute kidney injury, the eGFR may not accurately reflect actual GFR. Glucose [Mass/Vol] 80 mg/dL Normal 74-99 [facility] Comment on above: Result Comment: The [place] Diabetes Association (ADA) provides guidance for cutoff values for fasting glucose and random glucose. The ADA defines fasting as no caloric intake for at least 8 hours. Fasting plasma glucose results between 100 to 125 mg/dL indicate increased risk for diabetes (prediabetes). Fasting plasma glucose results greater than or equal to 126 mg/dL meet the criteria for diagnosis of diabetes. In the absence of unequivocal hyperglycemia, results should be confirmed by repeat testing. In a patient with classic symptoms of hyperglycemia or hyperglycemic crisis, random plasma glucose results greater than or equal to 200 mg/dL meet the criteria for diagnosis of diabetes. Reference: Standards of Medical Care in Diabetes 2016, [place] [employer]. Diabetes Care. 2016.39(Suppl 1). Potassium [Moles/Vol] 3.8 mmol/L Normal 3.7-5.1 [facility] Protein [Mass/Vol] 6.5 g/dL Normal 6.3-8.0 [facility] Sodium [Moles/Vol] 142 mmol/L Normal 136-144 [facility] Urea nitrogen [Mass/Vol] 11 mg/dL Normal 7-21 [facility] OBSOLETEon 12-26-2020 OBSOLETE Refill (HEMAWS) -- GRACIELA HAYWOOD ([id number]) 1970 F Date Time Provider Department 12/26/20 TOMMY FRENCH During your visit today, we recorded the following information about you: Allergies As of Date: 12/26/2020 Noted Allergy Reaction PERCOCET (OXYCODONE-ACETAMINOPHEN)1 11 - Vomiting Date Reviewed: 10/24/2020 Reviewed by: Tommy French DO - Fully Assessed Reason for Visit: Refill Request [94] Visit Diagnosis:Malignant neoplasm of overlapping sites of left breast in female, estrogen receptor positive (HCC) [C50.812, Z17.0] Order(s):capecitabine (XELODA) 500 mg tabletTAKE 2 TABLETS (1,000 MG) BY MOUTH TWICE DAILY FOR 14 DAYS ON AND 7 DAYS OFF EVERY 21 DAY CYCLE.Disp: 56 tabletRfl: 4 Prescriptions as of 12/27/2020 - capecitabine (XELODA) 500 mg tablet TAKE 2 TABLETS (1,000 MG) BY MOUTH TWICE DAILY FOR 14 DAYS ON AND 7 DAYS OFF EVERY 21 DAY CYCLE. - KLOR-CON M20 20 mEq tablet TAKE 1 TABLET TWICE A DAY - famotidine (PEPCID) 20 mg tablet Take [...] heparin allergy). De-access port on treatment completion. Problem List As Of Date 12/26/2020 Noted Resolved Left breast mass [N63.20] 08/30/2015 09/12/2015 Breast cancer metastasized to axillary lymph no*09/12/2015 Cancer of overlapping sites of left female domo*09/12/2015 02/08/2017 Bone metastases (HCC) [C79.51] 01/15/2016 Malignant neoplasm of right kidney, except jessie*02/01/2017 Malignant neoplasm of overlapping sites of left*02/05/2017 02/08/2017 Malignant neoplasm of overlapping sites of left*02/08/2017 Renal neoplasm [D49.519] 03/15/2017 10/21/2017 Liver metastasis (HCC) [C78.7] 10/21/2017 Dehydration [E86.0] 03/09/2018 Stomatitis and mucositis [K12.1, K12.30] 03/09/2018 Drug rash [L27.0] 09/13/2020 Prescriptions ordered this encounter Disp Refills Start End CAPECITABINE 500 MG TABLET 56 t* 4 12/27/2020 Sig: TAKE 2 TABLETS (1,000 MG) BY MOUTH TWICE DAILY FOR 14 DAYS ON AND 7 DAYS OFF EVERY 21 DAY CYCLE. Medications Discontinued During This Encounter Prescriptions - capecitabine (XELODA) 500 mg tablet (Discontinued) TAKE 2 TABLETS (1,000 MG) BY MOUTH TWICE DAILY. FOR 14 DAYS THEN OFF 1 WEEK. Encounter Status:Closed by TOMMY FRENCH on 12/27/20 Normal [facility] Vital Signs Date Time Vital Sign Value Performing Clinician Facility 02-22-2025 13:42-0400 Body height 165.[address] Philly Garcia MD Work Phone: [facility] 02-22-2025 13:42-0400 Body mass index (BMI) [Ratio] 19.8 kg/m2 Dr. Philly Garcia MD Work Phone: [facility] 02-22-2025 13:42-0400 Body temperature 97.7 [degF] Dr. Philly Garcia MD Work Phone: [facility] 02-22-2025 13:42-0400 Body weight 54.[address] Philly Garcia MD Work Phone: [facility] 02-22-2025 13:42-0400 Diastolic blood pressure 88 mm[Hg] Dr. Philly Garcia MD Work Phone: [facility] 02-22-2025 13:42-0400 Heart rate 74 /min Dr. Philly Garcia MD Work Phone: [facility] 02-22-2025 13:42-0400 Respiratory rate 16 /min Dr. Philly Garcia MD Work Phone: [facility] 02-22-2025 13:42-0400 SaO2% (BldA) [Mass fraction] 98 % Dr. Philly Garcia MD Work Phone: [facility] 02-22-2025 13:42-0400 Systolic blood pressure 126 mm[Hg] Dr. Philly Garcia MD Work Phone: [facility] 02-01-2025 16:15-0400 Diastolic blood pressure 74 mm[Hg] Dr. Philly Garcia MD Work Phone: [facility] 02-01-2025 16:15-0400 Heart rate 79 /min Dr. Philly Garcia MD Work Phone: [facility] 02-01-2025 16:15-0400 Systolic blood pressure 113 mm[Hg] Dr. Philly Garcia MD Work Phone: [facility] 02-01-2025 13:13-0400 Body height 165.[address] hPilly Garcia MD Work Phone: [facility] 02-01-2025 13:13-0400 Body mass index (BMI) [Ratio] 19.8 kg/m2 Dr. Philly Garcia MD Work Phone: [facility] 02-01-2025 13:13-0400 Body temperature 99.2 [degF] Dr. Philly Garcia MD Work Phone: [facility] 02-01-2025 13:13-0400 Body weight 54.[address] Philly Garcia MD Work Phone: [facility] 02-01-2025 13:13-0400 Diastolic blood pressure 75 mm[Hg] Dr. Philly Garcia MD Work Phone: [facility] 02-01-2025 13:13-0400 Heart rate 71 /min Dr. Philly Garcia MD Work Phone: [facility] 02-01-2025 13:13-0400 Respiratory rate 18 /min Dr. Philly Garcia MD Work Phone: [facility] 02-01-2025 13:13-0400 SaO2% (BldA) [Mass fraction] 97 % Dr. Philly Garcia MD Work Phone: [facility] 02-01-2025 13:13-0400 Systolic blood pressure 112 mm[Hg] Dr. Philly Garcia MD Work Phone: [facility] 01-11-2025 13:23-0400 Body height 165.[address] Philly Garcia MD Work Phone: [facility] 01-11-2025 13:23-0400 Body mass index (BMI) [Ratio] 19.8 kg/m2 Dr. Philly Garcia MD Work Phone: [facility] 01-11-2025 13:23-0400 Body temperature 97.6 [degF] Dr. Philly Garcia MD Work Phone: [facility] 01-11-2025 13:23-0400 Body weight 54.[address] Philly Garcia MD Work Phone: [facility] 01-11-2025 13:23-0400 Diastolic blood pressure 82 mm[Hg] Dr. Philly Garcia MD Work Phone: [facility] 01-11-2025 13:23-0400 Heart rate 70 /min Dr. Philly Garcia MD Work Phone: [facility] 01-11-2025 13:23-0400 Respiratory rate 16 /min Dr. Philly Garcia MD Work Phone: [facility] 01-11-2025 13:23-0400 SaO2% (BldA) [Mass fraction] 99 % Dr. Philly Garcia MD Work Phone: [facility] 01-11-2025 13:23-0400 Systolic blood pressure 120 mm[Hg] Dr. Philly Garcia MD Work Phone: [facility] 12-21-2024 12:46-0400 Body temperature 97.2 [degF] Dr. Philly Garcia MD Work Phone: [facility] 12-21-2024 12:46-0400 Diastolic blood pressure 75 mm[Hg] Dr. Philly Garcia MD Work Phone: [facility] 12-21-2024 12:46-0400 Heart rate 72 /min Dr. Philly Garcia MD Work Phone: [facility] 12-21-2024 12:46-0400 Respiratory rate 16 /min Dr. Philly Garcia MD Work Phone: [facility] 12-21-2024 12:46-0400 SaO2% (BldA) [Mass fraction] 100 % Dr. Philly Garcia MD Work Phone: [facility] 12-21-2024 12:46-0400 Systolic blood pressure 125 mm[Hg] Dr. Philly Garcia MD Work Phone: [facility] 12-21-2024 07:58-0400 Body height 165.[address] Philly Garcia MD Work Phone: [facility] 12-21-2024 07:58-0400 Body mass index (BMI) [Ratio] 20.5 kg/m2 Dr. Philly Garcia MD Work Phone: [facility] 12-21-2024 07:58-0400 Body temperature 98.4 [degF] Dr. Philly Garcia MD Work Phone: [facility] 12-21-2024 07:58-0400 Body weight 55.[address] Philly Garcia MD Work Phone: [facility] 12-21-2024 07:58-0400 Diastolic blood pressure 80 mm[Hg] Dr. Philly Garcia MD Work Phone: [facility] 12-21-2024 07:58-0400 Heart rate 63 /min Dr. Philly Garcia MD Work Phone: [facility] 12-21-2024 07:58-0400 Respiratory rate 18 /min Dr. Philly Garcia MD Work Phone: [facility] 12-21-2024 07:58-0400 SaO2% (BldA) [Mass fraction] 100 % Dr. Philly Garcia MD Work Phone: [facility] 12-21-2024 07:58-0400 Systolic blood pressure 116 mm[Hg] Dr. Philly Garcia MD Work Phone: [facility] 11-30-2024 14:53-0400 Body temperature 98.5 [degF] Dr. Philly Garcia MD Work Phone: [facility] 11-30-2024 14:53-0400 Diastolic blood pressure 71 mm[Hg] Dr. Philly Garcia MD Work Phone: [facility] 11-30-2024 14:53-0400 Heart rate 88 /min Dr. Philly Garcia MD Work Phone: [facility] 11-30-2024 14:53-0400 Respiratory rate 16 /min Dr. Philly Garcia MD Work Phone: [facility] 11-30-2024 14:53-0400 SaO2% (BldA) [Mass fraction] 100 % Dr. Philly Garcia MD Work Phone: [facility] 11-30-2024 14:53-0400 Systolic blood pressure 119 mm[Hg] Dr. Philly Garcia MD Work Phone: [facility] 11-30-2024 14:08-0400 Body mass index (BMI) [Ratio] 20 kg/m2 Dr. Philly Garcia MD Work Phone: [facility] 11-23-2024 14:42-0400 Diastolic blood pressure 71 mm[Hg] Dr. Philly Garcia MD Work Phone: [facility] 11-23-2024 14:42-0400 Heart rate 77 /min Dr. Philly Garcia MD Work Phone: [facility] 11-23-2024 14:42-0400 Respiratory rate 16 /min Dr. Philly Garcia MD Work Phone: [facility] 11-23-2024 14:42-0400 Systolic blood pressure 113 mm[Hg] Dr. Philly Garcia MD Work Phone: [facility] 11-23-2024 14:05-0400 Body height 165.[address] Philly Garcia MD Work Phone: [facility] 11-23-2024 14:05-0400 Body temperature 97.2 [degF] Dr. Philly Garcia MD Work Phone: [facility] 11-23-2024 14:05-0400 SaO2% (BldA) [Mass fraction] 99 % Dr. Philly Garcia MD Work Phone: [facility] 11-21-2024 10:17-0400 Body height 165.[address] Philly Garcia MD Work Phone: [facility] 11-21-2024 10:17-0400 Body mass index (BMI) [Ratio] 20 kg/m2 Dr. Philly Garcia MD Work Phone: [facility] 11-21-2024 10:17-0400 Body weight 54.[address] Philly Garcia MD Work Phone: [facility] 11-21-2024 10:17-0400 Diastolic blood pressure 68 mm[Hg] Dr. Philly Garcia MD Work Phone: [facility] 11-21-2024 10:17-0400 Heart rate 81 /min Dr. Philly Garcia MD Work Phone: [facility] 11-21-2024 10:17-0400 Respiratory rate 16 /min Dr. Philly Garcia MD Work Phone: [facility] 11-21-2024 10:17-0400 Systolic blood pressure 103 mm[Hg] Dr. Philly Garcia MD Work Phone: [facility] 11-16-2024 14:15-0400 Body temperature 96.4 [degF] Dr. Philly Garcia MD Work Phone: [facility] 11-16-2024 14:15-0400 Diastolic blood pressure 77 mm[Hg] Dr. Philly Garcia MD Work Phone: [facility] 11-16-2024 14:15-0400 Heart rate 81 /min Dr. Philly Garcia MD Work Phone: [facility] 11-16-2024 14:15-0400 Respiratory rate 16 /min Dr. Philly Garcia MD Work Phone: [facility] 11-16-2024 14:15-0400 Systolic blood pressure 116 mm[Hg] Dr. Philly Garcia MD Work Phone: [facility] 11-16-2024 10:45-0400 Body height 165.[address] Philly Garcia MD Work Phone: [facility] 11-16-2024 10:45-0400 Body mass index (BMI) [Ratio] 20.2 kg/m2 Dr. Philly Garcia MD Work Phone: [facility] 11-16-2024 10:45-0400 Body temperature 98.4 [degF] Dr. Philly Garcia MD Work Phone: [facility] 11-16-2024 10:45-0400 Body weight 55.[address] Philly Garcia MD Work Phone: [facility] 11-16-2024 10:45-0400 Diastolic blood pressure 75 mm[Hg] Dr. Philly Garcia MD Work Phone: [facility] 11-16-2024 10:45-0400 Heart rate 71 /min Dr. Philly Garcia MD Work Phone: [facility] 11-16-2024 10:45-0400 Respiratory rate 18 /min Dr. Philly Garcia MD Work Phone: [facility] 11-16-2024 10:45-0400 SaO2% (BldA) [Mass fraction] 100 % Dr. Philly Garcia MD Work Phone: [facility] 11-16-2024 10:45-0400 Systolic blood pressure 107 mm[Hg] Dr. Philly Garcia MD Work Phone: [facility] 11-09-2024 14:44-0400 Body temperature 97.5 [degF] Dr. Philly Garcia MD Work Phone: [facility] 11-09-2024 14:44-0400 Diastolic blood pressure 67 mm[Hg] Dr. Philly Garcia MD Work Phone: [facility] 11-09-2024 14:44-0400 Heart rate 79 /min Dr. Philly Garcia MD Work Phone: [facility] 11-09-2024 14:44-0400 Respiratory rate 16 /min Dr. Philly Garcia MD Work Phone: [facility] 11-09-2024 14:44-0400 SaO2% (BldA) [Mass fraction] 100 % Dr. Philly Garcia MD Work Phone: [facility] 11-09-2024 14:44-0400 Systolic blood pressure 110 mm[Hg] Dr. Philly Garcia MD Work Phone: [facility] 11-09-2024 11:22-0400 Body height 165.[address] Philly Garcia MD Work Phone: [facility] 11-09-2024 11:20-0400 Body mass index (BMI) [Ratio] 20.2 kg/m2 Dr. Philly Garcia MD Work Phone: [facility] 11-09-2024 11:20-0400 Body temperature 98.5 [degF] Dr. Philly Garcia MD Work Phone: [facility] 11-09-2024 11:20-0400 Body weight 55.[address] Philly Garcia MD Work Phone: [facility] 11-09-2024 11:20-0400 Diastolic blood pressure 75 mm[Hg] Dr. Philly Garcia MD Work Phone: [facility] 11-09-2024 11:20-0400 Heart rate 66 /min Dr. Philly Garcia MD Work Phone: [facility] 11-09-2024 11:20-0400 Respiratory rate 18 /min Dr. Philly Garcia MD Work Phone: [facility] 11-09-2024 11:20-0400 SaO2% (BldA) [Mass fraction] 100 % Dr. Philly Garcia MD Work Phone: [facility] 11-09-2024 11:20-0400 Systolic blood pressure 117 mm[Hg] Dr. Philly Garcia MD Work Phone: [facility] 10-26-2024 10:39-0400 Body height 165.[address] Philly Garcia MD Work Phone: [facility] 10-26-2024 10:39-0400 Body mass index (BMI) [Ratio] 20.2 kg/m2 Dr. Philly Garcia MD Work Phone: [facility] 10-26-2024 10:39-0400 Body temperature 98.7 [degF] Dr. Philly Garcia MD Work Phone: [facility] 10-26-2024 10:39-0400 Body weight 55.[address] Philly Garcia MD Work Phone: [facility] 10-26-2024 10:39-0400 Diastolic blood pressure 6 mm[Hg] Dr. Philly Garcia MD Work Phone: [facility] 10-26-2024 10:39-0400 Heart rate 72 /min Dr. Philly Garcia MD Work Phone: [facility] 10-26-2024 10:39-0400 Respiratory rate 18 /min Dr. Philly Garcia MD Work Phone: [facility] 10-26-2024 10:39-0400 SaO2% (BldA) [Mass fraction] 100 % Dr. Philly Garcia MD Work Phone: [facility] 10-26-2024 10:39-0400 Systolic blood pressure 121 mm[Hg] Dr. Philly Garcia MD Work Phone: [facility] 10-19-2024 14:23-0400 Body temperature 97.3 [degF] Dr. Philly Garcia MD Work Phone: [facility] 10-19-2024 14:23-0400 Diastolic blood pressure 79 mm[Hg] Dr. Philly Garcia MD Work Phone: [facility] 10-19-2024 14:23-0400 Heart rate 79 /min Dr. Philly Garcia MD Work Phone: [facility] 10-19-2024 14:23-0400 Respiratory rate 16 /min Dr. Philly Garcia MD Work Phone: [facility] 10-19-2024 14:23-0400 SaO2% (BldA) [Mass fraction] 98 % Dr. Philly Garcia MD Work Phone: [facility] 10-19-2024 14:23-0400 Systolic blood pressure 118 mm[Hg] Dr. Philly Garcia MD Work Phone: [facility] 10-19-2024 10:01-0400 Body height 165.[address] Philly Garcia MD Work Phone: [facility] 10-19-2024 10:01-0400 Body mass index (BMI) [Ratio] 20.3 kg/m2 Dr. Philly Garcia MD Work Phone: [facility] 10-19-2024 10:01-0400 Body temperature 98.6 [degF] Dr. Philly Garcia MD Work Phone: [facility] 10-19-2024 10:01-0400 Body weight 55.[address] Philly Garcia MD Work Phone: [facility] 10-19-2024 10:01-0400 Diastolic blood pressure 67 mm[Hg] Dr. Philly Garcia MD Work Phone: [facility] 10-19-2024 10:01-0400 Heart rate 74 /min Dr. Philly Garcia MD Work Phone: [facility] 10-19-2024 10:01-0400 Respiratory rate 16 /min Dr. Philly Garcia MD Work Phone: [facility] 10-19-2024 10:01-0400 SaO2% (BldA) [Mass fraction] 100 % Dr. Philly Garcia MD Work Phone: [facility] 10-19-2024 10:01-0400 Systolic blood pressure 99 mm[Hg] Dr. Philly Garcia MD Work Phone: [facility] 10-05-2024 15:53-0400 Body temperature 97 [degF] Dr. Philly Garcia MD Work Phone: [facility] 10-05-2024 15:53-0400 Diastolic blood pressure 66 mm[Hg] Dr. Philly Garcia MD Work Phone: [facility] 10-05-2024 15:53-0400 Heart rate 80 /min Dr. Philly Garcia MD Work Phone: [facility] 10-05-2024 15:53-0400 Respiratory rate 16 /min Dr. Philly Garcia MD Work Phone: [facility] 10-05-2024 15:53-0400 Systolic blood pressure 105 mm[Hg] Dr. Philly Garcia MD Work Phone: [facility] 10-05-2024 11:40-0400 Body mass index (BMI) [Ratio] 20.2 kg/m2 Dr. Philly Garcia MD Work Phone: [facility] 10-05-2024 11:40-0400 Body temperature 97.5 [degF] Dr. Philly Garcia MD Work Phone: [facility] 10-05-2024 11:40-0400 Body weight 55.[address] Philly Garcia MD Work Phone: [facility] 10-05-2024 11:40-0400 Diastolic blood pressure 79 mm[Hg] Dr. Philly Garcia MD Work Phone: [facility] 10-05-2024 11:40-0400 Heart rate 79 /min Dr. Philly Garcia MD Work Phone: [facility] 10-05-2024 11:40-0400 Respiratory rate 16 /min Dr. Philly Garcia MD Work Phone: [facility] 10-05-2024 11:40-0400 SaO2% (BldA) [Mass fraction] 100 % Dr. Philly Garcia MD Work Phone: [facility] 10-05-2024 11:40-0400 Systolic blood pressure 118 mm[Hg] Dr. Philly Garcia MD Work Phone: [facility] 09-28-2024 11:21-0400 Body height 165.[address] Philly Garcia MD Work Phone: [facility] 09-28-2024 11:21-0400 Body mass index (BMI) [Ratio] 20.7 kg/m2 Dr. Philly Garcia MD Work Phone: [facility] 09-28-2024 11:21-0400 Body temperature 98.2 [degF] Dr. Philly Garcia MD Work Phone: [facility] 09-28-2024 11:21-0400 Body weight 56.[address] Philly Garcia MD Work Phone: [facility] 09-28-2024 11:21-0400 Diastolic blood pressure 85 mm[Hg] Dr. Philly Garcia MD Work Phone: [facility] 09-28-2024 11:21-0400 Heart rate 70 /min Dr. Philly Garcia MD Work Phone: [facility] 09-28-2024 11:21-0400 Respiratory rate 18 /min Dr. Philly Garcia MD Work Phone: [facility] 09-28-2024 11:21-0400 SaO2% (BldA) [Mass fraction] 100 % Dr. Philly Garcia MD Work Phone: [facility] 09-28-2024 11:21-0400 Systolic blood pressure 127 mm[Hg] Dr. Philly Garcia MD Work Phone: [facility] 09-14-2024 16:10-0400 Body temperature 97.4 [degF] Dr. Philly Garcia MD Work Phone: [facility] 09-14-2024 16:10-0400 Diastolic blood pressure 81 mm[Hg] Dr. Philly Garcia MD Work Phone: [facility] 09-14-2024 16:10-0400 Heart rate 80 /min Dr. Philly Garcia MD Work Phone: [facility] 09-14-2024 16:10-0400 Respiratory rate 16 /min Dr. Philly Garcia MD Work Phone: [facility] 09-14-2024 16:10-0400 SaO2% (BldA) [Mass fraction] 100 % Dr. Philly Garcia MD Work Phone: [facility] 09-14-2024 16:10-0400 Systolic blood pressure 120 mm[Hg] Dr. Philly Garcia MD Work Phone: [facility] 09-14-2024 11:03-0400 Body mass index (BMI) [Ratio] 20.5 kg/m2 Dr. Philly Garcia MD Work Phone: [facility] 09-14-2024 11:03-0400 Body temperature 97.7 [degF] Dr. Philly Garcia MD Work Phone: [facility] 09-14-2024 11:03-0400 Body weight 55.[address] Philly Garcia MD Work Phone: [facility] 09-14-2024 11:03-0400 Diastolic blood pressure 83 mm[Hg] Dr. Philly Garcia MD Work Phone: [facility] 09-14-2024 11:03-0400 Heart rate 69 /min Dr. Philly Garcia MD Work Phone: [facility] 09-14-2024 11:03-0400 Respiratory rate 16 /min Dr. Philly Garcia MD Work Phone: [facility] 09-14-2024 11:03-0400 SaO2% (BldA) [Mass fraction] 100 % Dr. Philly Garcia MD Work Phone: [facility] 09-14-2024 11:03-0400 Systolic blood pressure 122 mm[Hg] Dr. Philly Garcia MD Work Phone: [facility] 09-07-2024 09:05-0400 Body mass index (BMI) [Ratio] 20.9 kg/m2 Dr. Philly Garcia MD Work Phone: [facility] 09-07-2024 09:05-0400 Body temperature 97.1 [degF] Dr. Philly Garcia MD Work Phone: [facility] 09-07-2024 09:05-0400 Body weight 57.[address] Philly Garcia MD Work Phone: [facility] 09-07-2024 09:05-0400 Diastolic blood pressure 83 mm[Hg] Dr. Philly Garcia MD Work Phone: [facility] 09-07-2024 09:05-0400 Heart rate 75 /min Dr. Philly Garcia MD Work Phone: [facility] 09-07-2024 09:05-0400 Respiratory rate 16 /min Dr. Philly Garcia MD Work Phone: [facility] 09-07-2024 09:05-0400 SaO2% (BldA) [Mass fraction] 98 % Dr. Philly Garcia MD Work Phone: [facility] 09-07-2024 09:05-0400 Systolic blood pressure 117 mm[Hg] Dr. Philly Garcia MD Work Phone: [facility] 08-18-2024 21:22-0400 Body temperature 97.5 [degF] Dr. Philly Garcia MD Work Phone: [facility] 08-18-2024 21:22-0400 Diastolic blood pressure 84 mm[Hg] Dr. Philly Garcia MD Work Phone: [facility] 08-18-2024 21:22-0400 Heart rate 77 /min Dr. Philly Garcia MD Work Phone: [facility] 08-18-2024 21:22-0400 Respiratory rate 16 /min Dr. Philly Garcia MD Work Phone: [facility] 08-18-2024 21:22-0400 SaO2% (BldA) [Mass fraction] 98 % Dr. Philly Garcia MD Work Phone: [facility] 08-18-2024 21:22-0400 Systolic blood pressure 125 mm[Hg] Dr. Philly Garcia MD Work Phone: [facility] 08-18-2024 17:59-0400 Body height 165.[address] Philly Garcia MD Work Phone: [facility] 08-18-2024 17:59-0400 Body mass index (BMI) [Ratio] 20.7 kg/m2 Dr. Philly Garcia MD Work Phone: [facility] 08-18-2024 17:59-0400 Body weight 56.[address] Philly Garcia MD Work Phone: [facility] 08-09-2024 16:00-0400 Body height 165.[address] Philly Garcia MD Work Phone: [facility] 08-09-2024 16:00-0400 Body mass index (BMI) [Ratio] 21.6 kg/m2 Dr. Philly Garcia MD Work Phone: [facility] 08-09-2024 16:00-0400 Body temperature 97.6 [degF] Dr. Philly Garcia MD Work Phone: [facility] 08-09-2024 16:00-0400 Body weight 59.[address] Philly Garcia MD Work Phone: [facility] 08-09-2024 16:00-0400 Diastolic blood pressure 89 mm[Hg] Dr. Philly Garcia MD Work Phone: [facility] 08-09-2024 16:00-0400 Heart rate 76 /min Dr. Philly Garcia MD Work Phone: [facility] 08-09-2024 16:00-0400 Respiratory rate 18 /min Dr. Philly Garcia MD Work Phone: [facility] 08-09-2024 16:00-0400 SaO2% (BldA) [Mass fraction] 100 % Dr. Philly Garcia MD Work Phone: [facility] 08-09-2024 16:00-0400 Systolic blood pressure 132 mm[Hg] Dr. Philly Garcia MD Work Phone: [facility] 07-24-2024 15:04-0400 Body mass index (BMI) [Ratio] 21.6 kg/m2 Dr. Philly Garcia MD Work Phone: [facility] 07-24-2024 15:04-0400 Body temperature 97.5 [degF] Dr. Philly Garcia MD Work Phone: [facility] 07-24-2024 15:04-0400 Body weight 59.[address] Philly Garcia MD Work Phone: [facility] 07-24-2024 15:04-0400 Diastolic blood pressure 86 mm[Hg] Dr. Philly Garcia MD Work Phone: [facility] 07-24-2024 15:04-0400 Heart rate 70 /min Dr. Philly Garcia MD Work Phone: [facility] 07-24-2024 15:04-0400 Respiratory rate 18 /min Dr. Philly Garcia MD Work Phone: [facility] 07-24-2024 15:04-0400 SaO2% (BldA) [Mass fraction] 99 % Dr. Philly Garcia MD Work Phone: [facility] 07-24-2024 15:04-0400 Systolic blood pressure 133 mm[Hg] Dr. Philly Garcia MD Work Phone: [facility] 06-26-2024 15:11-0500 Body mass index (BMI) [Ratio] 21.3 kg/m2 Dr. Philly Garcia MD Work Phone: [facility] 06-26-2024 15:11-0500 Body temperature 98 [degF] Dr. Philly Garcia MD Work Phone: [facility] 06-26-2024 15:11-0500 Body weight 58.[address] Philly Garcia MD Work Phone: [facility] 06-26-2024 15:11-0500 Diastolic blood pressure 86 mm[Hg] Dr. Philly Garcia MD Work Phone: [facility] 06-26-2024 15:11-0500 Heart rate 69 /min Dr. Philly Garcia MD Work Phone: [facility] 06-26-2024 15:11-0500 Respiratory rate 16 /min Dr. Philly Garcia MD Work Phone: [facility] 06-26-2024 15:11-0500 SaO2% (BldA) [Mass fraction] 99 % Dr. Philly Garcia MD Work Phone: [facility] 06-26-2024 15:11-0500 Systolic blood pressure 130 mm[Hg] Dr. Philly Garcia MD Work Phone: [facility] 05-29-2024 15:03-0500 Body mass index (BMI) [Ratio] 20.7 kg/m2 Dr. Philly Garcia MD Work Phone: [facility] 05-29-2024 15:03-0500 Body temperature 97.8 [degF] Dr. Philly Garcia MD Work Phone: [facility] 05-29-2024 15:03-0500 Body weight 56.[address] Philly Garcia MD Work Phone: [facility] 05-29-2024 15:03-0500 Diastolic blood pressure 77 mm[Hg] Dr. Philly Garcia MD Work Phone: [facility] 05-29-2024 15:03-0500 Heart rate 70 /min Dr. Philly Garcia MD Work Phone: [facility] 05-29-2024 15:03-0500 Respiratory rate 16 /min Dr. Philly Garcia MD Work Phone: [facility] 05-29-2024 15:03-0500 SaO2% (BldA) [Mass fraction] 70 % Dr. Philly Garcia MD Work Phone: [facility] 05-29-2024 15:03-0500 Systolic blood pressure 117 mm[Hg] Dr. Philly Garcia MD Work Phone: [facility] 05-01-2024 14:52-0500 Body mass index (BMI) [Ratio] 20.5 kg/m2 Dr. Philly Garcia MD Work Phone: [facility] 05-01-2024 14:52-0500 Body temperature 97.9 [degF] Dr. Philly Garcia MD Work Phone: [facility] 05-01-2024 14:52-0500 Body weight 55.[address] Philly Garcia MD Work Phone: [facility] 05-01-2024 14:52-0500 Diastolic blood pressure 82 mm[Hg] Dr. Philly Garcia MD Work Phone: [facility] 05-01-2024 14:52-0500 Heart rate 66 /min Dr. Philly Garcia MD Work Phone: [facility] 05-01-2024 14:52-0500 Respiratory rate 16 /min Dr. Philly Garcia MD Work Phone: [facility] 05-01-2024 14:52-0500 SaO2% (BldA) [Mass fraction] 97 % Dr. Philly Garcia MD Work Phone: [facility] 05-01-2024 14:52-0500 Systolic blood pressure 119 mm[Hg] Dr. Philly Garcia MD Work Phone: [facility] 02-07-2024 16:28-0400 Body temperature 97.8 [degF] Dr. Philly Garcia MD Work Phone: [facility] 02-07-2024 16:28-0400 Diastolic blood pressure 80 mm[Hg] Dr. Philly Garcia MD Work Phone: [facility] 02-07-2024 16:28-0400 Heart rate 57 /min Dr. Philly Garcia MD Work Phone: [facility] 02-07-2024 16:28-0400 Respiratory rate 16 /min Dr. Philly Garcia MD Work Phone: [facility] 02-07-2024 16:28-0400 SaO2% (BldA) [Mass fraction] 100 % Dr. Philly Garcia MD Work Phone: [facility] 02-07-2024 16:28-0400 Systolic blood pressure 117 mm[Hg] Dr. Philly Garcia MD Work Phone: [facility] 11-11-2023 11:28-0400 Body mass index (BMI) [Ratio] 20 kg/m2 Dr. Philly Garcia MD Work Phone: [facility] 07-08-2023 14:02-0500 Body height 165.[address] Philly Garcia Work Phone: [facility] 07-08-2023 13:56-0500 Body mass index (BMI) [Ratio] 18.9 kg/m2 Dr. Philly Garcia Work Phone: [facility] 07-08-2023 13:56-0500 Body temperature 98.3 [degF] Dr. Philly Garcia Work Phone: [facility] 07-08-2023 13:56-0500 Body weight 51.[address] Philly Garcia Work Phone: [facility] 07-08-2023 13:56-0500 Diastolic blood pressure 78 mm[Hg] Dr. Philly Garcia Work Phone: [facility] 07-08-2023 13:56-0500 Heart rate 76 /min Dr. Philly Garcia Work Phone: [facility] 07-08-2023 13:56-0500 Respiratory rate 18 /min Dr. Philly Garcia Work Phone: [facility] 07-08-2023 13:56-0500 SaO2% (BldA) [Mass fraction] 98 % Dr. Philly Garcia Work Phone: [facility] 07-08-2023 13:56-0500 Systolic blood pressure 111 mm[Hg] Dr. Philly Garcia Work Phone: [facility] 06-17-2023 16:41-0500 Body temperature 98.3 [degF] Dr. Philly Garcia Work Phone: [facility] 06-17-2023 16:41-0500 Diastolic blood pressure 79 mm[Hg] Dr. Philly Garcia Work Phone: [facility] 06-17-2023 16:41-0500 Heart rate 72 /min Dr. Philly Garcia Work Phone: [facility] 06-17-2023 16:41-0500 Respiratory rate 16 /min Dr. Philly Garcia Work Phone: [facility] 06-17-2023 16:41-0500 SaO2% (BldA) [Mass fraction] 100 % Dr. Philly Garcia Work Phone: [facility] 06-17-2023 16:41-0500 Systolic blood pressure 114 mm[Hg] Dr. Philly Garcia Work Phone: [facility] 06-17-2023 13:26-0500 Body mass index (BMI) [Ratio] 19.6 kg/m2 Dr. Philly Garcia Work Phone: [facility] 06-17-2023 13:26-0500 Body temperature 98.5 [degF] Dr. Philly Garcia Work Phone: [facility] 06-17-2023 13:26-0500 Body weight 53.[address] Philly Garcia Work Phone: [facility] 06-17-2023 13:26-0500 Diastolic blood pressure 82 mm[Hg] Dr. Philly Garcia Work Phone: [facility] 06-17-2023 13:26-0500 Heart rate 71 /min Dr. Philly Garcia Work Phone: [facility] 06-17-2023 13:26-0500 Respiratory rate 18 /min Dr. Philly Garcia Work Phone: [facility] 06-17-2023 13:26-0500 SaO2% (BldA) [Mass fraction] 100 % Dr. Philly Garcia Work Phone: [facility] 06-17-2023 13:26-0500 Systolic blood pressure 122 mm[Hg] Dr. Philly Garcia Work Phone: [facility] 05-27-2023 13:22-0500 Body mass index (BMI) [Ratio] 19.1 kg/m2 Dr. Philly Garcia Work Phone: [facility] 05-27-2023 13:22-0500 Body temperature 98.7 [degF] Dr. Philly Garcia Work Phone: [facility] 05-27-2023 13:22-0500 Body weight 52.[address] Philly Garcia Work Phone: [facility] 05-27-2023 13:22-0500 Diastolic blood pressure 88 mm[Hg] Dr. Philly Garcia Work Phone: [facility] 05-27-2023 13:22-0500 Heart rate 65 /min Dr. Philly Garcia Work Phone: [facility] 05-27-2023 13:22-0500 Respiratory rate 18 /min Dr. Philly Garcia Work Phone: [facility] 05-27-2023 13:22-0500 SaO2% (BldA) [Mass fraction] 100 % Dr. Philly Garcia Work Phone: [facility] 05-27-2023 13:22-0500 Systolic blood pressure 132 mm[Hg] Dr. Philly Garcia Work Phone: [facility] 04-15-2023 14:09-0500 Body height 165.[address] Philly Garcia Work Phone: [facility] 04-15-2023 14:09-0500 Body mass index (BMI) [Ratio] 19.3 kg/m2 Dr. Philly Garcia Work Phone: [facility] 04-15-2023 14:09-0500 Body temperature 97.8 [degF] Dr. Philly Garcia Work Phone: [facility] 04-15-2023 14:09-0500 Body weight 52.[address] Philly Garcia Work Phone: [facility] 04-15-2023 14:09-0500 Diastolic blood pressure 74 mm[Hg] Dr. Philly Garcia Work Phone: [facility] 04-15-2023 14:09-0500 Heart rate 68 /min Dr. Philly Garcia Work Phone: [facility] 04-15-2023 14:09-0500 Respiratory rate 16 /min Dr. Philly Garcia Work Phone: [facility] 04-15-2023 14:09-0500 SaO2% (BldA) [Mass fraction] 100 % Dr. Philly Garcia Work Phone: [facility] 04-15-2023 14:09-0500 Systolic blood pressure 109 mm[Hg] Dr. Philly Garcia Work Phone: [facility] 03-25-2023 14:03-0500 Body height 165.[address] Philly Garcia Work Phone: [facility] 03-25-2023 14:00-0500 Body mass index (BMI) [Ratio] 20 kg/m2 Dr. Philly Garcia Work Phone: [facility] 03-25-2023 14:00-0500 Body temperature 97.6 [degF] Dr. Philly Garcia Work Phone: [facility] 03-25-2023 14:00-0500 Body weight 54.[address] Philly Garcia Work Phone: [facility] 03-25-2023 14:00-0500 Diastolic blood pressure 72 mm[Hg] Dr. Philly Garcia Work Phone: [facility] 03-25-2023 14:00-0500 Heart rate 73 /min Dr. Philly Garcia Work Phone: [facility] 03-25-2023 14:00-0500 Respiratory rate 18 /min Dr. Philly Garcia Work Phone: [facility] 03-25-2023 14:00-0500 SaO2% (BldA) [Mass fraction] 100 % Dr. Philly Garcia Work Phone: [facility] 03-25-2023 14:00-0500 Systolic blood pressure 106 mm[Hg] Dr. Philly Garcia Work Phone: [facility] 03-04-2023 17:01-0400 Diastolic blood pressure 76 mm[Hg] Dr. Philly Garcia Work Phone: [facility] 03-04-2023 17:01-0400 Heart rate 75 /min Dr. Philly Garcia Work Phone: [facility] 03-04-2023 17:01-0400 Systolic blood pressure 125 mm[Hg] Dr. Philly Garcia Work Phone: [facility] 03-04-2023 13:55-0400 Body mass index (BMI) [Ratio] 20.1 kg/m2 Dr. Philly Garcia Work Phone: [facility] 03-04-2023 13:55-0400 Body temperature 99.4 [degF] Dr. Philly Garcia Work Phone: [facility] 03-04-2023 13:55-0400 Body weight 54.[address] Philly Garcia Work Phone: [facility] 03-04-2023 13:55-0400 Diastolic blood pressure 78 mm[Hg] Dr. Philly Garcia Work Phone: [facility] 03-04-2023 13:55-0400 Heart rate 80 /min Dr. Philly Garcia Work Phone: [facility] 03-04-2023 13:55-0400 Respiratory rate 18 /min Dr. Philly Garcia Work Phone: [facility] 03-04-2023 13:55-0400 SaO2% (BldA) [Mass fraction] 99 % Dr. Philly Garcia Work Phone: [facility] 03-04-2023 13:55-0400 Systolic blood pressure 110 mm[Hg] Dr. Philly Garcia Work Phone: [facility] 02-11-2023 17:22-0400 Body temperature 98.2 [degF] Dr. Philly Garcia Work Phone: [facility] 02-11-2023 17:22-0400 Respiratory rate 16 /min Dr. Philly Garcia Work Phone: [facility] 02-11-2023 13:51-0400 Body mass index (BMI) [Ratio] 20.5 kg/m2 Dr. Philly Garcia Work Phone: [facility] 02-11-2023 13:51-0400 Body temperature 98.4 [degF] Dr. Philly Garcia Work Phone: [facility] 02-11-2023 13:51-0400 Body weight 55.[address] Philly Garcia Work Phone: [facility] 02-11-2023 13:51-0400 Diastolic blood pressure 84 mm[Hg] Dr. Philly Garcia Work Phone: [facility] 02-11-2023 13:51-0400 Heart rate 77 /min Dr. Philly Garcia Work Phone: [facility] 02-11-2023 13:51-0400 Respiratory rate 15 /min Dr. Philly Garcia Work Phone: [facility] 02-11-2023 13:51-0400 SaO2% (BldA) [Mass fraction] 98 % Dr. Philly Garcia Work Phone: [facility] 02-11-2023 13:51-0400 Systolic blood pressure 122 mm[Hg] Dr. Philly Garcia Work Phone: [facility] 01-21-2023 13:01-0400 Body mass index (BMI) [Ratio] 20.7 kg/m2 Dr. Philly Garcia Work Phone: [facility] 01-21-2023 13:01-0400 Body temperature 98.4 [degF] Dr. Philly Garcia Work Phone: [facility] 01-21-2023 13:01-0400 Body weight 56.[address] Philly Garcia Work Phone: [facility] 01-21-2023 13:01-0400 Diastolic blood pressure 80 mm[Hg] Dr. Philly Garcia Work Phone: [facility] 01-21-2023 13:01-0400 Heart rate 75 /min Dr. Philly Garcia Work Phone: [facility] 01-21-2023 13:01-0400 Respiratory rate 16 /min Dr. Philly Garcia Work Phone: [facility] 01-21-2023 13:01-0400 SaO2% (BldA) [Mass fraction] 100 % Dr. Philly Garcia Work Phone: [facility] 01-21-2023 13:01-0400 Systolic blood pressure 118 mm[Hg] Dr. Philly Garcia Work Phone: [facility] 12-31-2022 16:28-0400 Body temperature 97.4 [degF] Dr. Philly Garcia Work Phone: [facility] 12-31-2022 16:28-0400 Diastolic blood pressure 70 mm[Hg] Dr. Philly Garcia Work Phone: [facility] 12-31-2022 16:28-0400 Heart rate 65 /min Dr. Philly Garcia Work Phone: [facility] 12-31-2022 16:28-0400 Respiratory rate 16 /min Dr. Philly Garcia Work Phone: [facility] 12-31-2022 16:28-0400 SaO2% (BldA) [Mass fraction] 99 % Dr. Philly Garcia Work Phone: [facility] 12-31-2022 16:28-0400 Systolic blood pressure 107 mm[Hg] Dr. Philly Garcia Work Phone: [facility] 12-31-2022 13:26-0400 Body height 165.[address] Philly Garcia Work Phone: [facility] 12-31-2022 13:22-0400 Body mass index (BMI) [Ratio] 20.6 kg/m2 Dr. Philly Garcia Work Phone: [facility] 12-31-2022 13:22-0400 Body temperature 97.2 [degF] Dr. Philly Garcia Work Phone: [facility] 12-31-2022 13:22-0400 Body weight 56.[address] Philly Garcia Work Phone: [facility] 12-31-2022 13:22-0400 Diastolic blood pressure 77 mm[Hg] Dr. Philly Garcia Work Phone: [facility] 12-31-2022 13:22-0400 Heart rate 72 /min Dr. Philly Garcia Work Phone: [facility] 12-31-2022 13:22-0400 Respiratory rate 18 /min Dr. Philly Garcia Work Phone: [facility] 12-31-2022 13:22-0400 SaO2% (BldA) [Mass fraction] 100 % Dr. Philly Garcia Work Phone: [facility] 12-31-2022 13:22-0400 Systolic blood pressure 111 mm[Hg] Dr. Philly Garcia Work Phone: [facility] 12-10-2022 17:01-0400 Diastolic blood pressure 78 mm[Hg] Dr. Philly Garcia Work Phone: [facility] 12-10-2022 17:01-0400 Heart rate 74 /min Dr. Philly Garcia Work Phone: [facility] 12-10-2022 17:01-0400 Systolic blood pressure 117 mm[Hg] Dr. Philly Garcia Work Phone: [facility] 12-10-2022 14:10-0400 Body height 165.[address] Philly Garcia Work Phone: [facility] 12-10-2022 14:07-0400 Body mass index (BMI) [Ratio] 20.9 kg/m2 Dr. Philly Garcia Work Phone: [facility] 12-10-2022 14:07-0400 Body temperature 98.7 [degF] Dr. Philly Garcia Work Phone: [facility] 12-10-2022 14:07-0400 Body weight 57.[address] Philly Garcia Work Phone: [facility] 12-10-2022 14:07-0400 Diastolic blood pressure 70 mm[Hg] Dr. Philly Garcia Work Phone: [facility] 12-10-2022 14:07-0400 Heart rate 68 /min Dr. Philly Garcia Work Phone: [facility] 12-10-2022 14:07-0400 Respiratory rate 16 /min Dr. Philly Garcia Work Phone: [facility] 12-10-2022 14:07-0400 SaO2% (BldA) [Mass fraction] 100 % Dr. Philly Garcia Work Phone: [facility] 12-10-2022 14:07-0400 Systolic blood pressure 106 mm[Hg] Dr. Philly Garcia Work Phone: [facility] 11-19-2022 16:56-0400 Respiratory rate 16 /min Dr. Philly Garcia Work Phone: [facility] 11-19-2022 13:15-0400 Body mass index (BMI) [Ratio] 20.8 kg/m2 Dr. Philly Garcia Work Phone: [facility] 11-19-2022 13:15-0400 Body temperature 98.2 [degF] Dr. Philly Garcia Work Phone: [facility] 11-19-2022 13:15-0400 Body weight 56.[address] Philly Garcia Work Phone: [facility] 11-19-2022 13:15-0400 Diastolic blood pressure 68 mm[Hg] Dr. Philly Garcia Work Phone: [facility] 11-19-2022 13:15-0400 Heart rate 69 /min Dr. Philly Garcia Work Phone: [facility] 11-19-2022 13:15-0400 Respiratory rate 16 /min Dr. Philly Garcia Work Phone: [facility] 11-19-2022 13:15-0400 SaO2% (BldA) [Mass fraction] 100 % Dr. Philly Garcia Work Phone: [facility] 11-19-2022 13:15-0400 Systolic blood pressure 99 mm[Hg] Dr. Philly Garcia Work Phone: [facility] 10-14-2022 17:12-0400 Body temperature 97.5 [degF] Dr. Phlily Garcia Work Phone: [facility] 10-14-2022 17:12-0400 SaO2% (BldA) [Mass fraction] 100 % Dr. Philly Garcia Work Phone: [facility] 10-14-2022 13:55-0400 Body mass index (BMI) [Ratio] 20.5 kg/m2 Dr. Phlily Garcia Work Phone: [facility] 10-14-2022 13:55-0400 Body temperature 97.4 [degF] Dr. Philly Garcia Work Phone: [facility] 10-14-2022 13:55-0400 Body weight 55.[address] Philly Garcia Work Phone: [facility] 10-14-2022 13:55-0400 Diastolic blood pressure 78 mm[Hg] Dr. Philly Garcia Work Phone: [facility] 10-14-2022 13:55-0400 Heart rate 69 /min Dr. Philly Garcia Work Phone: [facility] 10-14-2022 13:55-0400 Respiratory rate 16 /min Dr. Philly Garcia Work Phone: [facility] 10-14-2022 13:55-0400 SaO2% (BldA) [Mass fraction] 100 % Dr. Philly Garcia Work Phone: [facility] 10-14-2022 13:55-0400 Systolic blood pressure 114 mm[Hg] Dr. Philly Garcia Work Phone: [facility] 09-24-2022 14:21-0400 Body mass index (BMI) [Ratio] 20.6 kg/m2 Dr. Philly Garcia Work Phone: [facility] 09-24-2022 13:56-0400 Body mass index (BMI) [Ratio] 20.6 kg/m2 Dr. Philly Garcia Work Phone: [facility] 09-24-2022 13:56-0400 Body temperature 97.8 [degF] Dr. Philly Garcia Work Phone: [facility] 09-24-2022 13:56-0400 Body weight 56.[address] Philly Garcia Work Phone: [facility] 09-24-2022 13:56-0400 Diastolic blood pressure 80 mm[Hg] Dr. Philly Garcia Work Phone: [facility] 09-24-2022 13:56-0400 Heart rate 76 /min Dr. Philly Garcia Work Phone: [facility] 09-24-2022 13:56-0400 Respiratory rate 16 /min Dr. Philly Garcia Work Phone: [facility] 09-24-2022 13:56-0400 SaO2% (BldA) [Mass fraction] 98 % Dr. Philly Garcia Work Phone: [facility] 09-24-2022 13:56-0400 Systolic blood pressure 110 mm[Hg] Dr. Philly Garcia Work Phone: [facility] 09-03-2022 13:45-0400 Body mass index (BMI) [Ratio] 20.7 kg/m2 Dr. Philly Garcia Work Phone: [facility] 09-03-2022 13:45-0400 Body temperature 97.6 [degF] Dr. Philly Garcia Work Phone: [facility] 09-03-2022 13:45-0400 Body weight 56.[address] Philly Garcia Work Phone: [facility] 09-03-2022 13:45-0400 Diastolic blood pressure 74 mm[Hg] Dr. Philly Garcia Work Phone: [facility] 09-03-2022 13:45-0400 Heart rate 71 /min Dr. Philly Garcia Work Phone: [facility] 09-03-2022 13:45-0400 Respiratory rate 16 /min Dr. Philly Garcia Work Phone: [facility] 09-03-2022 13:45-0400 SaO2% (BldA) [Mass fraction] 100 % Dr. Philly Garcia Work Phone: [facility] 09-03-2022 13:45-0400 Systolic blood pressure 111 mm[Hg] Dr. Philly Garcia Work Phone: [facility] 06-11-2022 12:26-0500 Body height 165.[address] Philly Garcia Work Phone: [facility] 06-11-2022 12:26-0500 Body mass index (BMI) [Ratio] 22.1 kg/m2 Dr. Philly Garcia Work Phone: [facility] 06-11-2022 12:26-0500 Body weight 60.[address] Philly Garcia Work Phone: [facility] 06-03-2022 15:25-0500 Body mass index (BMI) [Ratio] 21.7 kg/m2 Dr. Philly Garcia Work Phone: [facility] 06-03-2022 15:25-0500 Body temperature 97 [degF] Dr. Philly Garcia Work Phone: [facility] 06-03-2022 15:25-0500 Body weight 59.[address] Philly Garcia Work Phone: [facility] 06-03-2022 15:25-0500 Diastolic blood pressure 70 mm[Hg] Dr. Philly Garcia Work Phone: [facility] 06-03-2022 15:25-0500 Heart rate 74 /min Dr. Philly Garcia Work Phone: [facility] 06-03-2022 15:25-0500 Respiratory rate 16 /min Dr. Philly Garcia Work Phone: [facility] 06-03-2022 15:25-0500 SaO2% (BldA) [Mass fraction] 100 % Dr. Philly Garcia Work Phone: [facility] 06-03-2022 15:25-0500 Systolic blood pressure 101 mm[Hg] Dr. Philly Garcia Work Phone: [facility] 05-19-2022 17:04-0500 Diastolic blood pressure 77 mm[Hg] Dr. Philly Garcia Work Phone: [facility] 05-19-2022 17:04-0500 Heart rate 84 /min Dr. Philly Garcia Work Phone: [facility] 05-19-2022 17:04-0500 SaO2% (BldA) [Mass fraction] 97 % Dr. Philly Garcia Work Phone: [facility] 05-19-2022 17:04-0500 Systolic blood pressure 117 mm[Hg] Dr. Philly Garcia Work Phone: [facility] 05-19-2022 15:33-0500 Body mass index (BMI) [Ratio] 21.8 kg/m2 Dr. Philly Garcia Work Phone: [facility] 05-19-2022 15:33-0500 Body temperature 98.1 [degF] Dr. Philly Garcia Work Phone: [facility] 05-19-2022 15:33-0500 Body weight 59.[address] Philly Garcia Work Phone: [facility] 05-19-2022 15:33-0500 Diastolic blood pressure 82 mm[Hg] Dr. Philly Garcia Work Phone: [facility] 05-19-2022 15:33-0500 Heart rate 72 /min Dr. Philly Garcia Work Phone: [facility] 05-19-2022 15:33-0500 Respiratory rate 16 /min Dr. Philly Garcia Work Phone: [facility] 05-19-2022 15:33-0500 SaO2% (BldA) [Mass fraction] 99 % Dr. Philly Garcia Work Phone: [facility] 05-19-2022 15:33-0500 Systolic blood pressure 122 mm[Hg] Dr. Philly Garcia Work Phone: [facility] 04-16-2022 16:05-0500 Body height 165.[address] Philly Garcia Work Phone: [facility] Work Phone: 04-16-2022 16:03-0500 Body mass index (BMI) [Ratio] 21.4 kg/m2 Dr. Philly Garcia Work Phone: [facility] 04-16-2022 16:03-0500 Body temperature 98.3 [degF] Dr. Philly Garcia Work Phone: [facility] 04-16-2022 16:03-0500 Body weight 58.[address] Philly Garcia Work Phone: [facility] 04-16-2022 16:03-0500 Diastolic blood pressure 89 mm[Hg] Dr. Philly Garcia Work Phone: [facility] 04-16-2022 16:03-0500 Heart rate 72 /min Dr. Philly Garcia Work Phone: [facility] 04-16-2022 16:03-0500 Respiratory rate 16 /min Dr. Philly Garcia Work Phone: [facility] 04-16-2022 16:03-0500 SaO2% (BldA) [Mass fraction] 100 % Dr. Philly Garcia Work Phone: [facility] 04-16-2022 16:03-0500 Systolic blood pressure 135 mm[Hg] Dr. Philly Garcia Work Phone: [facility] 03-26-2022 15:49-0500 Body mass index (BMI) [Ratio] 21.7 kg/m2 Dr. Philly Garcia Work Phone: [facility] 03-26-2022 15:49-0500 Body temperature 98.3 [degF] Dr. Philly Garcia Work Phone: [facility] 03-26-2022 15:49-0500 Body weight 59.[address] Philly Garcia Work Phone: [facility] 03-26-2022 15:49-0500 Diastolic blood pressure 87 mm[Hg] Dr. Philly Garcia Work Phone: [facility] 03-26-2022 15:49-0500 Heart rate 62 /min Dr. Philly Garcia Work Phone: [facility] 03-26-2022 15:49-0500 Respiratory rate 16 /min Dr. Philly Garcia Work Phone: [facility] 03-26-2022 15:49-0500 SaO2% (BldA) [Mass fraction] 100 % Dr. Philly Garcia Work Phone: [facility] 03-26-2022 15:49-0500 Systolic blood pressure 129 mm[Hg] Dr. Philly Garcia Work Phone: [facility] 03-05-2022 15:39-0400 Body mass index (BMI) [Ratio] 21.6 kg/m2 Dr. Philly Garcia Work Phone: [facility] 03-05-2022 15:39-0400 Body temperature 98.2 [degF] Dr. Philly Garcia Work Phone: [facility] 03-05-2022 15:39-0400 Body weight 59.[address] Philly Garcia Work Phone: [facility] 03-05-2022 15:39-0400 Diastolic blood pressure 85 mm[Hg] Dr. Philly Garcia Work Phone: [facility] 03-05-2022 15:39-0400 Heart rate 88 /min Dr. Philly Garcia Work Phone: [facility] 03-05-2022 15:39-0400 Respiratory rate 16 /min Dr. Philly Garcia Work Phone: [facility] 03-05-2022 15:39-0400 SaO2% (BldA) [Mass fraction] 100 % Dr. Philly Garcia Work Phone: [facility] 03-05-2022 15:39-0400 Systolic blood pressure 134 mm[Hg] Dr. Philly Garcia Work Phone: [facility] 02-16-2022 15:44-0400 Body mass index (BMI) [Ratio] 21.6 kg/m2 Dr. Philly Garcia Work Phone: [facility] 02-16-2022 15:44-0400 Body temperature 98.3 [degF] Dr. Philly Garcia Work Phone: [facility] 02-16-2022 15:44-0400 Body weight 59.[address] Philly Garcia Work Phone: [facility] 02-16-2022 15:44-0400 Diastolic blood pressure 77 mm[Hg] Dr. Philly Garcia Work Phone: [facility] 02-16-2022 15:44-0400 Heart rate 69 /min Dr. Philly Garcia Work Phone: [facility] 02-16-2022 15:44-0400 Respiratory rate 16 /min Dr. Philly Garcia Work Phone: [facility] 02-16-2022 15:44-0400 SaO2% (BldA) [Mass fraction] 100 % Dr. Philly Garcia Work Phone: [facility] 02-16-2022 15:44-0400 Systolic blood pressure 126 mm[Hg] Dr. Philly Garcia Work Phone: [facility] 01-22-2022 16:54-0400 Body temperature 98 [degF] Dr. Philly Garcia Work Phone: [facility] 01-22-2022 16:54-0400 Diastolic blood pressure 76 mm[Hg] Dr. Philly Garcia Work Phone: [facility] Work Phone: 01-22-2022 16:54-0400 Heart rate 67 /min Dr. Philly Garcia Work Phone: [facility] Work Phone: 01-22-2022 16:54-0400 Respiratory rate 16 /min Dr. Philly Garcia Work Phone: [facility] 01-22-2022 16:54-0400 SaO2% (BldA) [Mass fraction] 100 % Dr. Philly Garcia Work Phone: [facility] Work Phone: 01-22-2022 16:54-0400 Systolic blood pressure 112 mm[Hg] Dr. Philly Garcia Work Phone: [facility] Work Phone: 01-22-2022 16:14-0400 Body mass index (BMI) [Ratio] 21.4 kg/m2 Dr. Philly Garcia Work Phone: [facility] Work Phone: 01-22-2022 16:14-0400 Body weight 58.[address] Philly Garcia Work Phone: [facility] Work Phone: 01-22-2022 15:53-0400 Body mass index (BMI) [Ratio] 21.4 kg/m2 Dr. Philly Garcia Work Phone: [facility] Work Phone: 01-22-2022 15:53-0400 Body temperature 97.7 [degF] Dr. Philly Garcia Work Phone: [facility] Work Phone: 01-22-2022 15:53-0400 Body weight 58.[address] Philly Garcia Work Phone: [facility] Work Phone: 01-22-2022 15:53-0400 Diastolic blood pressure 78 mm[Hg] Dr. Philly Garcia Work Phone: [facility] Work Phone: 01-22-2022 15:53-0400 Heart rate 69 /min Dr. Philly Garcia Work Phone: [facility] Work Phone: 01-22-2022 15:53-0400 Respiratory rate 15 /min Dr. Philly Garcia Work Phone: [facility] Work Phone: 01-22-2022 15:53-0400 Systolic blood pressure 116 mm[Hg] Dr. Philly Garcia Work Phone: [facility] Work Phone: 12-16-2021 15:40-0400 Body mass index (BMI) [Ratio] 21.8 kg/m2 Dr. Philly Garcia Work Phone: [facility] Work Phone: 12-16-2021 15:40-0400 Body temperature 98 [degF] Dr. Philly Garcia Work Phone: [facility] Work Phone: 12-16-2021 15:40-0400 Body weight 59.[address] Philly Garcia Work Phone: [facility] Work Phone: 12-16-2021 15:40-0400 Diastolic blood pressure 82 mm[Hg] Dr. Philly Garcia Work Phone: [facility] Work Phone: 12-16-2021 15:40-0400 Heart rate 69 /min Dr. Philly Garcia Work Phone: [facility] Work Phone: 12-16-2021 15:40-0400 Respiratory rate 16 /min Dr. Philly Garcia Work Phone: [facility] Work Phone: 12-16-2021 15:40-0400 SaO2% (BldA) [Mass fraction] 99 % Dr. Philly Garcia Work Phone: [facility] Work Phone: 12-16-2021 15:40-0400 Systolic blood pressure 121 mm[Hg] Dr. Philly Garcia Work Phone: [facility] Work Phone: 11-19-2021 10:51-0400 Body height 165.[address] Philly Garcia Work Phone: [facility] Work Phone: 11-19-2021 10:51-0400 Body mass index (BMI) [Ratio] 21.8 kg/m2 Dr. Philly Garcia Work Phone: [facility] Work Phone: 11-19-2021 10:51-0400 Body temperature 97.9 [degF] Dr. Philly Garcia Work Phone: [facility] Work Phone: 11-19-2021 10:51-0400 Body weight 59.[address] Philly Garcia Work Phone: [facility] Work Phone: 11-19-2021 10:51-0400 Diastolic blood pressure 79 mm[Hg] Dr. Philly Garcia Work Phone: [facility] Work Phone: 11-19-2021 10:51-0400 Heart rate 67 /min Dr. Philly Garcia Work Phone: [facility] Work Phone: 11-19-2021 10:51-0400 Respiratory rate 16 /min Dr. Philly Garcia Work Phone: [facility] Work Phone: 11-19-2021 10:51-0400 SaO2% (BldA) [Mass fraction] 100 % Dr. Philly Garcia Work Phone: [facility] Work Phone: 11-19-2021 10:51-0400 Systolic blood pressure 116 mm[Hg] Dr. Philly Garcia Work Phone: [facility] Work Phone: 10-27-2021 14:00-0400 Body temperature 98.29 [degF] Treatment Wstr Work Phone: [facility] 10-27-2021 14:00-0400 Diastolic blood pressure 72 mm[Hg] Treatment Wstr Work Phone: [facility] 10-27-2021 14:00-0400 Heart rate 75 /min Treatment Wstr Work Phone: [facility] 10-27-2021 14:00-0400 Respiratory rate 20 /min Treatment Wstr Work Phone: [facility] 10-27-2021 14:00-0400 Systolic blood pressure 110 mm[Hg] Treatment Wstr Work Phone: [facility] 08-27-2021 08:56-0400 Body temperature 97.7 [degF] Tommy Masci DO Work Phone: [facility] 08-27-2021 08:56-0400 Diastolic blood pressure 77 mm[Hg] Tommy Masci DO Work Phone: [facility] 08-27-2021 08:56-0400 Heart rate 73 /min Tommy Masci DO Work Phone: [facility] 08-27-2021 08:56-0400 Systolic blood pressure 112 mm[Hg] Tommy Masci DO Work Phone: [facility] 08-25-2021 09:15-0400 Diastolic blood pressure 78 mm[Hg] Zackery Oliveros MD Work Phone: [facility] 08-25-2021 09:15-0400 Heart rate 72 /min Zackery Oliveros MD Work Phone: [facility] 08-25-2021 09:15-0400 Respiratory rate 16 /min Zackery Oliveros MD Work Phone: [facility] 08-25-2021 09:15-0400 SaO2% (BldA) [Mass fraction] 100 % Zackery Oliveros MD Work Phone: [facility] 08-25-2021 09:15-0400 Systolic blood pressure 121 mm[Hg] Zackery Oliveros MD Work Phone: [facility] 08-25-2021 07:38-0400 Body temperature 97.3 [degF] Zackery Oliveros MD Work Phone: [facility] 07-07-2017 15:03-0500 BMI (Body Mass Index) 24.96 kg/m2 Philly Garcia [facility] Work Phone: 07-07-2017 15:03-0500 Body Temperature 97.8 [degF] Philly Garcia [facility] Work Phone: Comment on above: Method: Temporal 07-07-2017 15:03-0500 BP Diastolic 78 mm[Hg] Philly Ghoshi [facility] Work Phone: Comment on above: Patient Position: Sitting; Cuff Location : Left Arm; Cuff Size: Standard 07-07-2017 15:03-0500 BP Systolic 126 mm[Hg] Philly Ghoshi [facility] Work Phone: Comment on above: Patient Position: Sitting; Cuff Location : Left Arm; Cuff Size: Standard 07-07-2017 15:03-0500 BSA (Body Surface Area) 1.75 m2 Philly Garcia [facility] Work Phone: 07-07-2017 15:03-0500 Height 165.1 cm Philly Garcia [facility] Work Phone: 07-07-2017 15:03-0500 Pulse (Heart Rate) 74 /min Philly Ghoshi [facility] Work Phone: Comment on above: Pattern: Regular 07-07-2017 15:03-0500 Pulse Oximetry 99 % Philly Ghoshi [facility] Work Phone: Comment on above: Room air 07-07-2017 15:03-0500 Respiratory Rate 20 /min Philly Garcia [facility] Work Phone: Comment on above: Pattern: Unlabored 07-07-2017 15:03-0500 Weight 68.04 kg Philly Garcia [facility] Work Phone: Encounters Encounter Date Encounter Type Care Provider Facility Start: 03-16-2025 ambulatory Olivia Cantu ty:[facility] Start: 03-15-2025 End: 03-15-2025 ambulatory Philly Garcia Facility:[facility] Start: 02-22-[address] Karen Castillo MD [facility] Start: 02-22-2025 End: 02-22-[address] Olivia Castillo MD -[facility] Work Phone: Start: 02-22-2025 End: 02-22-[address] Philly Garcia MD Work Phone: -[facility] Start: 02-01-[address] Karen Castillo MD -[facility] Start: 02-01-2025 End: 02-01-[address] Olivia Castillo MD -[facility] Work Phone: Start: 02-01-2025 End: 02-01-[address] Philly Garcia MD Work Phone: -[facility] Start: 01-11-[address] Karen Castillo MD -[facility] Start: 01-11-2025 End: 01-11-[address] Olivia Castillo MD -[facility] Work Phone: Start: 01-11-2025 End: 01-11-[address] Philly Garcia MD Work Phone: -[facility] Start: 12-21-[address] Karen Castillo MD -[facility] Start: 12-21-2024 End: 12-21-2024 Patient encounter procedure Neha HERNANDEZ -[facility] Work Phone: Start: 12-21-2024 End: 12-21-[address] Philly Garcia MD Work Phone: -[facility] Start: 11-24-2024 End: 11-24-[address] Philly Garcia MD Work Phone: -Nuclear Medicine [facility] Start: 11-24-2024 End: 11-24-[address] Olivia Castillo MD -[facility] Work Phone: Start: 11-24-2024 End: 11-24-2024 ambulatory [facility] Facility:[facility] Start: 11-23-[address] Karen Castillo MD -[facility] Start: 11-21-2024 End: 11-21-[address] Olivia Castillo MD -[facility] Work Phone: Start: 11-21-2024 End: 11-21-[address] Philly Garcia MD Work Phone: -[facility] Start: 11-20-2024 End: 11-20-[address] Philly Garcia MD Work Phone: -Cat Scan [facility] Start: 11-20-2024 End: 11-20-[address] Olivia Castillo MD -Cat Scan [facility] Work Phone: Start: 11-20-2024 End: 11-20-2024 ambulatory [facility] Facility:[facility] Start: 11-16-2024 Registered Recurring Dr. Karen Castillo MD [facility] Start: 11-16-2024 End: 11-16-2024 Patient encounter procedure Neha Luciano COORDINATE MEASURING EQUIPMENT OPERATOR-C -[facility] Work Phone: Start: 11-16-2024 End: 11-16-[address] Philly Garcia MD Work Phone: [facility] Start: 11-09-[address] Karen Castillo MD [facility] Start: 11-09-2024 End: 11-09-[address] Olivia Castillo MD -[facility] Work Phone: Start: 11-09-2024 End: 11-09-[address] Philly Garcia MD Work Phone: [facility] Work Phone: Start: 10-26-[address] Karen Castillo MD [facility] Start: 10-26-2024 End: 10-26-2024 Patient encounter procedure Neha Ankita COORDINATE MEASURING EQUIPMENT OPERATOR-C -[facility] Work Phone: Start: 10-26-2024 End: 10-26-[address] Philly Garcia MD Work Phone: [facility] Work Phone: Start: 10-19-[address] Karen Castillo MD -[facility] Start: 10-19-2024 End: 10-19-2024 Patient encounter procedure Neha Ankita COORDINATE MEASURING EQUIPMENT OPERATOR-C -[facility] Work Phone: Start: 10-19-2024 End: 10-19-[address] Philly Garcia MD Work Phone: [facility] Work Phone: Start: 10-05-2024 End: 10-05-[address] Olivia Castillo MD -[facility] Work Phone: Start: 10-05-2024 End: 10-05-2024 ambulatory Olivia Castillo [facility] Start: 09-28-2024 End: 09-28-2024 Patient encounter procedure Neha Ankita COORDINATE MEASURING EQUIPMENT OPERATOR-C -[facility] Work Phone: Start: 09-28-2024 End: 09-28-[address] Philly Garcia MD Work Phone: [facility] Work Phone: Start: 09-28-[address] Karen Castillo MD -[facility] Start: 09-14-2024 End: 09-14-2024 Patient encounter procedure Neha Ankita COORDINATE MEASURING EQUIPMENT OPERATOR-C -[facility] Work Phone: Start: 09-14-2024 End: 09-14-2024 ambulatory Neha Luciano NP Facility:[facility] Start: 09-07-2024 End: 09-07-[address] Olivia Castillo MD -[facility] Work Phone: Start: 09-07-2024 End: 09-07-2024 ambulatory Philly Garcia Facility:[facility] Start: 08-28-2024 End: 08-28-[address] Philly Garcia MD Work Phone: [facility] Work Phone: Start: 08-28-2024 End: 08-28-2024 Patient encounter procedure Neha Luciano NP-C -[facility] Work Phone: Start: 08-28-2024 End: 08-28-2024 ambulatory Neha Luciano COORDINATE MEASURING EQUIPMENT OPERATOR Facility:[facility] Start: 08-18-2024 End: 08-18-2024 Emergency department patient visit Dr. Philly Garcia MD Work Phone: -Emergency Department Work Phone: Start: 08-10-2024 End: 08-10-[address] Philly Garcia MD Work Phone: [facility] Work Phone: Start: 08-10-2024 End: 08-10-[address] Olivia Castillo MD -Nuclear Medicine, [facility] Work Phone: Start: 08-09-2024 End: 08-09-2024 Patient encounter procedure Neha Luciano COORDINATE MEASURING EQUIPMENT OPERATOR-C -[facility] Work Phone: Start: 08-09-2024 End: 08-10-2024 ambulatory Olivia Castillo Facility:[facility] Start: 08-07-2024 End: 08-07-[address] Philly Garcia MD Work Phone: [facility] Work Phone: Start: 08-07-2024 End: 08-07-[address] Olivia Castillo MD -Cat Scan, [facility] Work Phone: Start: 08-07-2024 End: 08-07-2024 ambulatory Olivia Castillo Facility:[facility] Start: 07-24-2024 End: 07-24-[address] Olivia Castillo MD -[facility] Work Phone: Start: 07-24-2024 End: 07-24-2024 ambulatory Philly Bonezzi Facility:[facility] Start: 07-24-[address] Karen Castillo MD [facility] Start: 06-26-2024 End: 06-26-[address] Olivia Castillo MD -[facility] Work Phone: Start: 06-26-2024 End: 06-26-2024 ambulatory Philly Bonezzi Facility:[facility] Start: 05-29-2024 End: 05-29-[address] Olivia Castillo MD -[facility] Work Phone: Start: 05-29-2024 End: 05-29-2024 ambulatory Philly Bonezzi Facility:[facility] Start: 05-01-2024 End: 05-01-[address] Olivia Castillo MD -[facility] Work Phone: Start: 05-01-2024 End: 05-01-2024 ambulatory Philly Bonezzi Facility:[facility] Start: 04-17-2024 End: 04-17-2024 Patient encounter procedure Neha Luciano COORDINATE MEASURING EQUIPMENT OPERATOR-C -Nuclear Medicine, [facility] Work Phone: Start: 04-17-2024 End: 04-17-2024 ambulatory Neha Luciano COORDINATE MEASURING EQUIPMENT OPERATOR Facility:[facility] Start: 04-12-2024 End: 04-12-2024 ambulatory Nehakaris Luciano COORDINATE MEASURING EQUIPMENT OPERATOR Facility:[facility] Start: 04-03-2024 End: 04-03-2024 ambulatory Neha Luciano COORDINATE MEASURING EQUIPMENT OPERATOR Facility:[facility] Start: 07-08-2023 End: 07-08-[address] Philly Garcia Work Phone: [facility] Work Phone: Start: 07-08-2023 End: 07-08-[address] Philly Garcia Work Phone: [facility]-Cat Scan, [facility] Work Phone: Start: 07-08-[address] Philly Garcia Work Phone: [facility] Start: 07-08-2023 End: 07-08-[address] Philly Garcia Work Phone: [facility] Work Phone: Start: 07-05-2023 End: 07-05-[address] Philly Garcia Work Phone: [facility] Work Phone: Start: 07-05-2023 End: 07-05-[address] [facility] Work [facility]: Start: 06-17-2023 End: 06-17-[address] Philly Garcia Work Phone: [facility] Work Phone: Start: 05-27-2023 End: 05-27-[address] Philly Garcia Work Phone: [facility] Work Phone: Start: 05-18-2023 Non-patient / Non-visit Dr. Mohan Work Phone: [facility] Start: 05-18-2023 End: 05-18-[address] Philly Garcia Work Phone: [facility] Work Phone: Start: 05-18-2023 End: 05-18-[address] Philly Garcia Work Phone: [facility] Work Phone: Start: 04-15-[address] Philly Garcia Work Phone: [facility] Start: 04-15-2023 End: 04-15-[address] Philly Garcia Work Phone: [facility] Work Phone: Start: 04-07-2023 End: 04-07-[address] Philly Garcia Work Phone: [facility] Work Phone: Start: 04-07-2023 End: 04-07-[address] Philly Garcia Work Phone: [facility] Work Phone: Start: 03-25-[address] Philly Garcia Work Phone: [facility] Start: 03-25-2023 End: 03-25-[address] Philly Garcia Work Phone: [facility] Work Phone: Start: 03-04-2023 End: 03-04-[address] Philly Garcia Work Phone: [facility] Work Phone: Start: 02-11-2023 End: 02-11-[address] Philly Garcia Work Phone: [facility] Work Phone: Start: 01-21-2023 End: 01-21-[address] Philly Garcia Work Phone: [facility] Work Phone: Start: 12-31-[address] Philly Garcia Work Phone: [facility] Start: 12-31-2022 End: 12-31-[address] Philly Garcia Work Phone: [facility] Work Phone: Start: 12-28-2022 End: 12-28-[address] Philly Garcia Work Phone: [facility] Work Phone: Start: 12-28-2022 End: 12-28-[address] Philly Garcia [facility] Work Phone: Start: 12-22-2022 Non-patient / Non-visit Dr. Mohan Work Phone: [facility] Start: 12-22-2022 End: 12-22-[address] Philly Garcia Work Phone: [facility] Work Phone: Start: 12-22-2022 End: 12-22-[address] Philly Garcia Work Phone: [facility] Work Phone: Start: 12-10-[address] Philly Garcia Work Phone: [facility] Start: 12-10-2022 End: 12-10-[address] Philly Garcia Work Phone: [facility] Work Phone: Start: 11-19-2022 End: 11-19-[address] Philly Garcia Work Phone: [facility] Work Phone: Start: 10-14-2022 End: 10-14-[address] Philly Garcia Work Phone: [facility] Work Phone: Start: 09-24-2022 End: 09-24-[address] Philly Garcia Work Phone: [facility] Work Phone: Start: 09-17-2022 Non-patient / Non-visit Dr. Mohan Work Phone: [facility] Start: 09-17-2022 End: 09-17-[address] Philly Garcia Work Phone: [facility] Work Phone: Start: 09-03-2022 End: 09-03-[address] Philly Garcia Work Phone: [facility] Work Phone: Start: 07-31-2022 Refill Tommy García Work Phone: Hematology/Oncology Comment on above: Refill Request Start: 06-11-[address] Philly Garcia Work Phone: [facility] Start: 06-03-2022 End: 06-03-[address] Philly Garcia Work Phone: [facility] Start: 06-01-2022 Non-patient / Non-visit Dr. Mohan Work Phone: [facility] Start: 06-01-2022 End: 06-01-[address] Philly Garcia Work Phone: [facility] Work Phone: Start: 06-01-2022 End: 06-01-[address] Philly Garcia Work Phone: [facility] Start: 05-19-2022 End: 05-19-[address] Philly Garcia Work Phone: [facility] Start: 05-08-2022 End: 05-08-[address] Philly Garcia Work Phone: [facility] Work Phone: Start: 05-08-2022 End: 05-08-[address] Philly Garcia Work Phone[facility] Start: 05-04-2022 End: 05-04-[address] Philly Garcia Work Phone: [facility]-Nuclear Medicine, [facility] Start: 04-23-[address] Philly Garcia Work Phone: [facility] Start: 04-16-2022 End: 04-16-[address] Philly Garcia Work Phone: [facility] Start: 03-26-2022 End: 03-26-[address] Philly Garcia Work Phone: [facility] Start: 03-05-2022 End: 03-05-[address] Philly Garcia Work Phone: [facility] Start: 02-16-2022 End: 02-16-[address] Philly Garcia Work Phone: [facility] Start: 01-22-2022 End: 01-22-[address] Philly Garcia Work Phone: [facility] Start: 12-16-2021 End: 12-16-[address] Philly Garcia Work Phone: [facility] Start: 12-16-2021 Telephone encounter Tommy sutton DO Work Phone: Hematology/Oncology Comment on above: Appointment Cancelle d Start: 12-12-2021 End: 12-12-[address] Philly Garcia Work Phone: [facility], [facility] Start: 12-08-2021 End: 12-08-[address] Philly Garcia Work Phone: [facility]-Cat Scan, [facility] Start: 11-19-2021 End: 11-19-[address] Philly Garcia Work Phone: [facility] Start: 11-10-2021 Refill Cory Gong MD Work Phone: Hematology/Oncology Comment on above: Refill Request Start: 10-27-2021 End: 10-27-2021 ambulatory Treatment Rm 9 Fausto [facility] [employer] Work Phone: Hematology/Oncology Comment on above: Malignant neoplasm o f overlapping sites of left breast in female, estrogen receptor positive (HCC) (Primary Dx); Liver metastasis (HCC); Bone metastases (HCC); Breast cancer metastasized to axillary lymph node, left (HCC) Start: 10-23-2021 Orders Only Tommy García Work Phone: Hematology/Oncology Comment on above: Malignant neoplasm o f overlapping sites of left breast in female, estrogen receptor positive (HCC) (Primary Dx); Liver metastasis (HCC); Bone metastases (HCC) Appointment Start: 10-23-2021 Refill Tommy García Work Phone: Hematology/Oncology Comment on above: Refill Request Start: 09-08-2021 End: 09-08-2021 ambulatory Lab/[facility] Work Phone: Hematology/Oncology Comment on above: Malignant neoplasm o f overlapping sites of left breast in female, estrogen receptor positive (HCC) (Primary Dx); Liver metastasis (HCC); Bone metastases (HCC) Start: 09-05-2021 Orders Only Tommy García Work Phone: Hematology/Oncology Comment on above: Malignant neoplasm o f overlapping sites of left breast in female, estrogen receptor positive (HCC) (Primary Dx); Liver metastasis (HCC); Bone metastases (HCC) Start: 09-02-2021 ambulatory Tommy García Work Phone: Hematology/Oncology Comment on above: blood work Start: 08-27-2021 Telephone encounter Tommy sutton DO Work Phone: Hematology/Oncology Comment on above: Future Appointment Start: 08-27-2021 End: 08-27-2021 ambulatory Tommy French DO Work Phone: Hematology/Oncology Comment on above: Malignant neoplasm o f overlapping sites of left breast in female, estrogen receptor positive (HCC) (Primary Dx); Liver metastasis (HCC); Bone metastases (HCC) Start: 08-27-2021 End: 08-27-2021 Patient encounter procedure Tommy French DO Work Phone: [facility] Start: 08-25-2021 End: 08-25-2021 Subsequent hospital visit by physician Zackery Oliveros MD Work Phone: Ambulatory Surgery Comment on above: Encounter for screen ing for malignant neoplasm of colon [Z12.11] Start: 07-07-2017 End: 07-07-2017 Office outpatient visit 5 minutes Philly No Internal Medicine Start: 03-16-2017 End: 03-16-2017 Phone Encounter Philly No Pharmacy Sales Assistant al Medicine Start: 09-05-2015 End: 09-05-2015 Refill Request Philly No Pharmacy Sales Assistant al Medicine Start: 08-30-2015 End: 08-30-2015 Office outpatient visit 15 minutes Philly No Internal Medicine Start: 08-29-2015 End: 08-29-2015 Phone Encounter Philly No Pharmacy Sales Assistant al Medicine Procedures Date Procedure Procedure Detail Performing Clinician Start: 02-22-[address] Philly Garcia MD Work Phone: Start: 02-22-2025 Serum inorganic phosphate measurement Dr. Philly Garcia MD Work Phone: Start: 02-01-[address] Philly Garcia MD Work Phone: Start: 02-01-2025 Serum inorganic phosphate measurement Dr. Philly Garcia MD Work Phone: Start: 12-21-[address] Philly Garcia MD Work Phone: Start: 12-21-2024 Serum inorganic phosphate measurement Dr. Philly Garcia MD Work Phone: Start: 11-24-2024 Radionuclide whole b joselito bone study Dr. Philly Garcia MD Work Phone: Start: 11-20-2024 CT of thorax, abdome n and pelvis with contrast Dr. Philly Garcia MD Work Phone: Start: 11-16-[address] Philly Garcia MD Work Phone: Start: 11-09-[address] Philly Garcia MD Work Phone: Start: 11-09-2024 Total iron binding capacity measurement Dr. Philly Garcia MD Work Phone: Start: 11-09-[address] Philly Garcia MD Work Phone: Start: 10-26-[address] Philly Garcia MD Work Phone: Start: 10-26-2024 Serum inorganic phosphate measurement Dr. Philly Garcia MD Work Phone: Start: 10-19-[address] Philly Garcia MD Work Phone: Start: 10-19-2024 Serum inorganic phosphate measurement Dr. Philly Garcia MD Work Phone: Start: 09-28-2024 Injection of radiocontrast material Dr. Philly Garcia MD Work Phone: Start: 09-28-[address] Philly Garcia MD Work Phone: Start: 09-14-2024 Urnls dip stick/tabl et reagent auto microscopy Dr. Philly Garcia MD Work Phone: Start: 09-14-2024 Serum inorganic phosphate measurement Dr. Philly Garcia MD Work Phone: Start: 09-07-2024 Total iron binding capacity measurement Dr. Philly Garcia MD Work Phone: Start: 08-28-2024 MRI of thoracic spin e with contrast Dr. Philly Garcia MD Work Phone: Start: 08-18-2024 Urnls dip stick/tabl et reagent auto microscopy Dr. Philly Garcia MD Work Phone: Start: 08-18-[address] Philly Garcia MD Work Phone: Start: 08-18-2024 Computed tomography of abdomen and pelvis with intravenous contrast Dr. Philly Garcia MD Work Phone: Start: 08-18-2024 CT angiography of ch est with contrast Dr. Philly Garcia MD Work Phone: Start: 08-10-2024 Radionuclide whole b joselito bone study Dr. Philly Garcia MD Work Phone: Start: 08-07-2024 CT of thorax, abdome n and pelvis with contrast Dr. Philly Garcia MD Work Phone: Start: 06-26-2024 Measurement of renal function Dr. Philly Garcia MD Work Phone: Comment on above: GFR Calc Start: 04-17-2024 Radionuclide whole b joselito bone study Dr. Philly Garcia MD Work Phone: Start: 11-17-[address] Philly hicks MD Work Phone: Comment on above: Sent directly to [facility] facility per ordering physician. Start: 07-08-2023 CT of chest and abdomen Dr. Philly Garcia Work Phone: Start: 07-05-2023 Radionuclide whole b joselito bone study Dr. Philly Garcia Work Phone: Start: 04-07-2023 CT of chest and abdomen Dr. Philly Garcia Work Phone: Start: 12-28-2022 Radionuclide whole b joselito bone study Dr. Philly Garcia Work Phone: Start: 12-22-2022 CT of chest and abdomen Dr. Philly Garcia Work Phone: Start: 09-17-2022 CT of chest and abdomen Dr. Philly Garcia Work Phone: Start: 05-08-2022 CT of chest and abdomen Dr. Philly Garcia Work Phone: Start: 05-04-2022 Radionuclide whole b joselito bone study Dr. Philly Garcia Work Phone: Start: 12-12-2021 Radionuclide whole b josleito bone study Dr. Philly Garcia Work Phone: Start: 12-08-2021 CT of chest and abdomen Dr. Philly Garcia Work Phone: Start: 10-27-2021 Blood count complete auto&auto difrntl wbc Tommy Karis Legeri DO Work Phone: Start: 09-08-2021 Blood count complete auto&auto difrntl wbc Tommy Karis Legeri DO Work Phone: Start: 08-27-2021 Adult depression screening assessment Tommy French DO Work Phone: Start: 08-25-2021 Colon ca scrn not hi rsk ind Norma Renee PA-C Work Phone: Start: 08-25-2021 Colonoscopy Zackery wallace MD Work Phone: Start: 10-06-2019 Adult depression screening assessment Zackery Oliveros MD Work Phone: Start: 08-30-2015 End: 08-30-2015 Bilat Diag Digital AND CAD Comments: See Note; NOTES: [facility] Imaging Services [address] [place] [address] Verdana 4d Bilat Diag Digital AND CAD MR#: [id number] Acct: [id number] Name: GRACIELA HAYWOOD Rep #: [id number] : 1970 F 45 From: Harry Duffy MD PCP: Philly Garcia MD Status: REG CLI Study: Bilat Diag Digital AND CAD Date of Exam: 08/30/15 Exam# [id number] Ordering Dr: Philly Garcia MD MAMMOGRAPHY - [...] Harry Duffy MD at 15:09 EDT Tel [phone], Service support [phone], N.B. : The above information has been verbally conveyed by Harry Duffy MD to Dr Garcia, Referring Physician, on 08/30/2015 15:17:29 (ET). CC: Philly Garcia MD Canoe Maker: Signed Philly Garcia Work Phone: Start: 08-30-2015 End: 08-30-2015 Breast Limited Unilateral Comments: See Note; NOTES: [facility] Imaging Services [address] [place] [id number] Verdana 4d Breast Limited Unilateral MR#: [id number] Acct: [id number] Name: GRACIELA HAYWOOD Richy Rep #: [id number] : 1970 F 45 From: Harry Duffy MD PCP: Philly Garcia MD Status: REG CLI Study: Breast Limited Unilateral Date of Exam: 08/30/15 Exam# [id number] Ordering Dr: Philly Garcia MD STUDY: ULTRASOUND [...] Harry Duffy MD at 15:10 EDT Tel [phone], Service support [phone], CC: Philly Garcia MD Canoe Maker: Signed Philly Garcia Work Phone: Laparoscopy surg partial nephrectomy MALENA Mcneill Comment on above: right 03-15-17 [facility] Mast rad w/pectoral musc ax int shira lymph nodes MALENA Mcneill Salpingo-oophorectom y compl/prtl uni/bi spx MALENA Mcneill Comment on above: bilateral Plan of Treatment Date Care Activity Detail Author Start: 08-26-2031 Colonoscopy COLONOSCOPY [facility] Start: 08-26-2031 COLORECTAL CANCER SCREENING COLORECTAL CANCER SCREENING [facility] Start: 02-22-2025 Serum inorganic phosphate measurement [facility] Start: 02-22-2025 Vital signs measurements [facility] Start: 02-01-2025 Vital signs measurements [facility] Start: 01-11-2025 [facility] Start: 01-11-2025 Vital signs measurements [facility] Start: 12-21-2024 [facility] Start: 12-21-2024 Vital signs measurements [facility] Start: 11-20-2024 Venous catheter care management [facility] Start: 11-16-2024 [facility] Start: 11-09-2024 Cobalamin (Vitamin B12) [Mass/volume] in Serum or Plasma [facility] Start: 11-09-2024 Ferritin [Mass/volume] in Serum or Plasma [facility] Start: 11-09-2024 Iron and Iron binding capacity panel - Serum or Plasma [facility] Start: 11-09-2024 [facility] Start: 10-27-2024 DIABETES SCREEN DIABETES SCREEN [facility] Start: 10-26-2024 [facility] Start: 10-19-2024 Cancer Ag 27-29 [Presence] in Serum or Plasma [facility] Start: 10-19-2024 [facility] Start: 09-28-2024 Injection of radiocontrast material [facility] Start: 09-28-2024 X-ray of chest, PA and lateral views Chest PA and Lateral [facility] Start: 09-28-2024 XR Chest PA and Lateral [facility] Start: 09-28-2024 [facility] Start: 09-08-2024 DIABETES SCREEN DIABETES SCREEN [facility] Start: 09-04-2024 Patient referral [facility] Work Phone: Start: 08-27-2024 DIABETES SCREEN DIABETES SCREEN [facility] Start: 08-18-2024 End: 08-18-2024 [facility] Start: 08-10-2024 Patient referral [facility] Work Phone: Start: 08-10-2024 NM Whole body Bone Views [facility] Start: 08-10-2024 Radionuclide whole body bone study Bone Scan Whole Body [facility] Start: 08-07-2024 Venous catheter care management [facility] Start: 07-14-2024 DIABETES SCREEN DIABETES SCREEN [facility] Start: 04-17-2024 Venous catheter care management [facility] Start: 07-08-2023 Venous catheter care management [facility] Start: 07-05-2023 Venous catheter care management [facility] Start: 04-07-2023 Venous catheter care management [facility] Start: 12-31-2022 Cancer Ag 27-29 [Presence] in Serum or Plasma [facility] Start: 12-28-2022 Venous catheter care management [facility] Start: 12-22-2022 Venous catheter care management [facility] Start: 09-17-2022 Venous catheter care management [facility] Start: 08-27-2022 Adult depression screening assessment DEPRESSION SCREENING [facility] Start: 08-25-2022 Colonoscopy COLONOSCOPY [facility] Start: 08-25-2022 COLORECTAL CANCER SCREENING COLORECTAL CANCER SCREENING [facility] Start: 06-11-2022 Cancer Ag 27-29 [Presence] in Serum or Plasma [facility] Start: 06-11-2022 [facility] Start: 05-17-2022 DEPRESSION ASSESSMENT DEPRESSION ASSESSMENT [facility] Start: 05-08-2022 Venous catheter care management [facility] Start: 05-04-2022 Venous catheter care management [facility] Start: 01-22-2022 Venous catheter care [facility] Start: 01-15-2022 Influenza vaccination [facility] Start: 12-12-2021 Venous catheter care [facility] Work Phone: Start: 12-08-2021 Venous catheter care [facility] Work Phone: Start: 10-27-2021 End: 12-27-2021 CBC W Auto Differential panel - Blood CBC + DIFF Lab STAT Malignant neoplasm of overlapping sites of left breast in female, estrogen receptor positive (HCC) Liver metastasis (HCC) Bone metastases (HCC) Expected: 10/27/2021, Expires: 12/27/2021 [facility] Work Phone: Comment on above: Expected: 10/27/2021, Expires: 2 Start: 10-27-2021 End: 12-27-2021 Comprehensive metabolic 2000 panel - Serum or Plasma COMP METABOLIC PANEL Lab STAT Malignant neoplasm of overlapping sites of left breast in female, estrogen receptor positive (HCC) Liver metastasis (HCC) Bone metastases (HCC) Expected: 10/27/2021, Expires: 12/27/2021 [facility] Work Phone: Comment on above: Expected: 10/27/2021, Expires: 2 Start: 10-05-2020 Adult depression screening assessment DEPRESSION SCREENING [facility] Start: 09-23-2020 HPV TESTING HPV TESTING [facility] Start: 09-23-2020 PAP TESTING PAP TESTING [facility] Start: 01-15-2020 SHINGRIX VACCINE (1 of 2) SHINGRIX VACCINE (1 of 2) [facility] Start: 2015 COLOGUARD (FIT-DNA) COLOGUARD (FIT-DNA) [facility] Start: [address] COLONOGRAPHY [facility] Start: 2015 FECAL OCCULT BLOOD FECAL OCCULT BLOOD [facility] Start: 2015 LIPID SCREEN LIPID SCREEN [facility] Start: 2015 SIGMOIDOSCOPY SIGMOIDOSCOPY [facility] Start: 2010 Mammography MAMMOGRAM [facility] Start: 1989 SHINGRIX VACCINE (1 of 2) SHINGRIX VACCINE (1 of 2) [facility] Start: 1989 Urine microalbumin profile DTAP,TDAP,TD (1 - Tdap) [facility] Start: 01-15-1988 HEPATITIS C SCREENING HEPATITIS C SCREENING [facility] Start: 01-15-1988 HIV SCREENING HIV SCREENING [facility] Start: 1982 COVID-19 VACCINE (1) COVID-19 VACCINE (1) [facility] Start: 01-15-1976 PNEUMOCOCCAL (1 - PCV) PNEUMOCOCCAL (1 - PCV) [facility] Start: 1975 COVID-19 VACCINE (#1) COVID-19 VACCINE (#1) [facility] Start: 1970 COVID-19 VACCINE (#1) COVID-19 VACCINE (#1) [facility] Start: 1970 HEPATITIS B (1 of 3 - 3-dose series) HEPATITIS B (1 of 3 - 3-dose series) [facility] Alanine aminotransfe rase [Enzymatic activity/volume] in Serum or Plasma [facility] Albumin [Mass/volume ] in Serum or Plasma [facility] Alkaline phosphatase [Enzymatic activity/volume] in Serum or Plasma [facility] Anion gap in Serum o r Plasma [facility] Basic metabolic 2008 panel with ionized calcium - Serum or Plasma [facility] Basic metabolic 2008 panel with ionized calcium - Serum or Plasma [facility] Bilirubin, total measurement [facility] BUN/Creatinine ratio [facility] Calcium [Mass/volume ] in Serum or Plasma [facility] Cancer Ag 15-3 [Pres ence] in Serum or Plasma [facility] Cancer Ag 27-29 [Presence] in Serum or Plasma [facility] Work Phone: Cancer Ag 27-29 [Presence] in Serum or Plasma [facility] Cancer Ag 27-29 [Presence] in Serum or Plasma [facility] Cancer Ag 27-29 [Presence] in Serum or Plasma [facility] Cancer Ag 27-29 [Presence] in Serum or Plasma [facility] Cancer Ag 27-29 [Presence] in Serum or Plasma [facility] Cancer Ag 27-29 [Presence] in Serum or Plasma [facility] Carbon dioxide, tota l [Moles/volume] in Central venous blood [facility] End: 09-05-2022 CBC W Auto Differential panel - Blood CBC + DIFF Lab STAT Malignant neoplasm of overlapping sites of left breast in female, estrogen receptor positive (HCC) Liver metastasis (HCC) Bone metastases (HCC) Every 3 weeks for 22 Occurrences starting 09/05/2021 until 09/05/2022 [facility] Work Phone: Comment on above: Every 3 weeks for 22 Occurrences startin g 09/05/2021 until 09/05/2022 CBC W Auto Different ial panel - Blood [facility] Work Phone: CBC W Auto Different ial panel - Blood [facility] CBC W Auto Different ial panel - Blood [facility] CBC W Auto Different ial panel - Blood [facility] CBC W Auto Different ial panel - Blood [facility] End: 09-05-2022 Comprehensive metabolic 2000 panel - Serum or Plasma COMP METABOLIC PANEL Lab Routine Malignant neoplasm of overlapping sites of left breast in female, estrogen receptor positive (HCC) Liver metastasis (HCC) Bone metastases (HCC) Every 3 weeks for 22 Occurrences starting 09/05/2021 until 09/05/2022 [facility] [employer] Work Phone: Comment on above: Every 3 weeks for 22 Occurrences startin g 09/05/2021 until 09/05/2022 Comprehensive metabo lic 2000 panel - Serum or Plasma [facility] Comprehensive metabo lic 2000 panel - Serum or Plasma [facility] Creatinine [Mass/vol ume] in Serum or Plasma [facility] CT Abdomen and Pelvi s W contrast IV [facility] CT Abdomen and Pelvi s W contrast IV [facility] Ferritin [Mass/volum e] in Serum or Plasma [facility] Ferritin [Mass/volum e] in Serum or Plasma [facility] Ferritin [Mass/volum e] in Serum or Plasma [facility] Folate [Moles/volume ] in Serum or Plasma [facility] Glucose [Mass/volume ] in Serum or Plasma [facility] Iron [Mass/mass] in Unspecified specimen [facility] Iron and Iron bindin g capacity panel - Serum or Plasma [facility] Iron and Iron bindin g capacity panel - Serum or Plasma [facility] Iron and Iron bindin g capacity panel - Serum or Plasma [facility] Iron saturation [Mas s Fraction] in Serum or Plasma [facility] Magnesium [Mass/volu me] in Serum or Plasma [facility] Work Phone: Magnesium [Mass/volu me] in Serum or Plasma [facility] Magnesium measurement [facility] Magnesium measurement [facility] Magnesium measurement [facility] Measurement of renal function [facility] NM Whole body Bone Views [facility] NM Whole body Bone Views [facility] NM Whole body Bone Views [facility] Patient Education ED Fracture, V ertebral Compression ED Pleurisy [facility] Work Phone: Patient referral [facility] Work Phone: Potassium measurement [facility] Serum chloride measurement [facility] Serum inorganic phos phate measurement [facility] Serum inorganic phos phate measurement [facility] Sodium measurement [facility] SURGICAL PATHOLOGY [facility] Work Phone: Comment on above: Release Upon Ordering for 1 Occurrences starting 08/25/2021, 1 completed Total iron binding capacity measurement [facility] Total protein measurement [facility] Urea nitrogen [Mass/volume] in Serum or Plasma [facility] US Heart limited [facility] Work Phone: [facility] Work Phone: [facility] Immunizations Immunization Date Immunization Notes Care Provider Brian miller 03-26-2020 influenza, injectabl e, quadrivalent, preservative free Zackery Oliveros MD Work Phone: [facility] 05-05-2019 influenza, injectabl e, quadrivalent, preservative free Zackery Oliveros MD Work Phone: [facility] Payers Date Payer Category Payer Self-pay 2021 Unknown [id number] 2018 Unknown 2018 Unknown MMO MMO [employer] [id number] 2018-Present [phone] [address] [place] [address] PPO [id number] 2015 Unknown [id number] Unknown [id number] Unknown [id number] Unknown [id number] 2..1.671137.3.579.2.462 Unknown [id number] 2.840.1.865535.3.579.2.462 Unknown [id number] 2.0.1.646156.3.579.2.462 Unknown [id number] 2.840.1.932206.3.579.2.462 Unknown [id number] 2.840.1.387678.3.579.2.462 Unknown [id number] 2.0.1.817284.3.579.2.462 Unknown [id number] 2.16.840.1.366902.3.579.2.462 Unknown [id number] 2.16.840.1.366873.3.579.2.462 Unknown [id number] 2.16.840.1.095254.3.579.2.462 Unknown [id number] 2.16.840.1.719436.3.579.2.462 Unknown [id number] 2.16840.1.370714.3.579.2.462 Unknown [id number] 2.16.840.1.834361.3.579.2.462 Unknown [id number] 2.840.1.905915.3.579.2.462 Unknown [id number] 2.840.1.777745.3.579.2.462 Unknown [id number] 2.840.1.206443.3.579.2.462 Unknown [id number] 2.840.1.661824.3.579.2.462 Unknown [id number] 2.16840.1.630625.3.579.2.462 Unknown [id number] 2.16.840.1.274750.3.579.2.462 Unknown [id number] 2.840.1.102403.3.579.2.462 Unknown [id number] 2.840.1.218393.3.579.2.462 Unknown [id number] 2.16.840.1.377190.3.579.2.462 Unknown [id number] 2.16.840.1.251231.3.579.2.462 Unknown [id number] 2.16.840.1.624816.3.579.2.462 Unknown [id number] 2.16.840.1.680199.3.579.2.462 Unknown [id number] 2.16.840.1.702434.3.579.2.462 Unknown [id number] 2.16.840.1.638980.3.579.2.462 Unknown [id number] 2.16.840.1.081480.3.579.2.462 Social History Date Type Detail Facility Start: 08-30-2015 End: 08-18-2024 Tobacco smoking status NHIS Never smoked tobacco [facility] Start: 08-30-2015 End: 09-12-2015 Tobacco use and exposure Smokeless tobacco non-user [facility] Start: 08-25-2021 End: 09-05-2021 Alcohol intake Current non-drinker of alcohol (finding) [facility] Start: 1970 Sex Assigned At Not on file [facility] Start: 08-15-2021 End: 08-27-2021 Exposure to SARS-CoV-2 (event) Not sure [facility] Work Phone: Start: 11-19-2021 End: 12-16-2021 Tobacco smoking status NHIS Unknown if ever smoked [facility] Start: 1970 Sex Assigned At Female [facility] Start: 08-12-2024 End: 08-31-2024 Sex Female (finding) [facility] Sex Female [facility] Medical Equipment Procedure Code Equipment Code Equipment Origin al Text Equipment Identifier Dates [place] [facility] M ri 8fr Plastic Polyurethane Implantable Infusion - [id number] Start: 09-17-2015 Comment on above: Description: PowerPo rt Mental Status Date Assessment Result Facility 11-30-2024 Cognitive function Voice/Name [facility] Work Phone: 11-23-2024 Cognitive function Awake;Alert;A ppropriate;Fo llows Commands [facility] Work Phone: 11-11-2023 Cognitive function Voice/Name [facility] Work Phone: 07-09-2022 Cognitive function Voice/Name [facility] Work Phone: 05-19-2022 Cognitive function Voice/Name [facility] Work Phone: Clinical Notes 03-15-2017 to 02-22-2025 Note Date & Type Note Facility 02-22-2025 Progress note [facility] 02-01-2025 Progress note [facility] 01-11-2025 Progress note [facility] 01-11-2025 Progress note Note Date/Time January 11, 2025 1:44pm [facility] [place] [address] OFFICE VISIT Date of Service: 01/11/25 1313 MR#: [id number] Acct: [id number] Name: GRACIELA HAYWOOD Rep #: [id number] : 1970 From: Olivia morton MD Age/Sex: 54/F Location: [facility] Status: Signed HPI Subjective Date of Service 01/11/25 Chief Complaint Breast cancer on treatment History of Present Illness 54-year-old female with metastatic breast cancer seen in second opinion November 2021. Her initial care had been at [facility] under the care of , switching to [facility] November 2021. #1-Left breast cancer, stage IV at presentation in 2015, ER positive (over 95% moderate), IN positive (27%, weak) and HER2 1+, that presented with a palpable lump in the left breast and staging revealed multiple bone metastases, liver metastases, and a right lung nodule. Patient received Adriamycin Cytoxan followed by Taxol and then underwent surgical debulking with left mastectomy, sentinel lymph node biopsy and a prophylactic right mastectomy in February 2016. At the same time she underwent laparoscopic bilateral salpingo-oophorectomy. Pathology February 2016 revealed multifocal residual invasive ductal cancer, metastatic cancer was found in 2 of 5 lymph nodes in addition to a single tumor deposit within the axillary fat. Following surgery patient received hormonal therapy (see below for summary) from 2015 through 2018. After progression on hormonal therapy she has been on single agent capecitabine since March 2019 with stable disease. December 08, 2021 CT chest abdomen and pelvis: IMPRESSION: Small cysts in both lobes of the liver. Small cyst in the left kidney. Almost complete collapse of the T6 vertebrae. December 12, 2021 bone scan: IMPRESSION: Normal whole body nuclear bone scan. ? May 04, 2022 bone scan: IMPRESSION: 1. The increase in radiotracer concentration defined in the right anterior-posterior first rib is commensurate with trauma-fracture.? Plain film radiography correlation may be of benefit. 2.? Degenerative arthrosis is defined in the bilateral shoulders, the right knee, the second lumbar vertebra. 3.? Overall compared to the previous whole body bone scintigraphy study dated 12/12/2021, there is no significant interval change.? No definitive scintigraphic evidence of diffuse axial skeletal metastatic disease is apparent on the current examination. May 08, 2022 CT chest abdomen and pelvis: ABDOMEN There is a 2 cm x 2.1 cm hypodense nodule in the posterior aspect of the right dome of the liver.? A metastatic deposit should be ruled out.? Tiny cysts are also seen and these are unchanged.? Normal gallbladder and extrahepatic biliary system.? Normal spleen.? Normal pancreas. September 17, [address]: IMPRESSION: Interval mild regression of hypoechoic lesion dome of right lobe liver. Otherwise stable interval examination without other evidence of possible metastatic disease. No acute findings in the chest or abdomen. December 22, 2022 CT chest and abdomen: IMPRESSION: Interval decrease in size of the low-attenuation lesion in the dome of the right lobe of the liver. Stable hepatic cyst and left renal cysts. December 28, 2022 bone scan: IMPRESSION: 1. The increase in tracer uptake noted in the right first rib likely represents trauma-fracture. Uptake noted in the left proximal humeral metaphysis may be further investigated with plain film radiography. 2. Degenerative arthritis is defined in the right ankle, both shoulder articulations and right-left forefoot. 3. Overall compared to the previous whole body bone scintigraphy study dated 05/04/2022, there is minimal interval change, there is no definitive scintigraphic evidence of diffuse axial skeletal metastatic disease. Asymmetric uptake noted in the left proximal humerus on the current examination may be further assessed with plain film radiography as defined above. April 07, 2023 CT chest and abdomen: IMPRESSION: 1. Irregular low-attenuation lesion within the right hepatic lobe at the dome the liver, smaller since 05/08/2022 likely indicative of a treated metastasis. Other more well-defined low-attenuation foci within the liver have been unchanged and may be cysts although some of them are too small to further characterize. No new focal hepatic abnormality. 2. Left lower pole renal low-attenuation lesion with Hounsfield units of approximately 35-40 appears unchanged since at least 05/08/2022 and may be a complicated cyst rather than a solid lesion. 3. Mixed attenuation expansile lesion within the right first rib is nonspecific. This appears unchanged since 05/08/2022 and is indeterminate, perhaps a metastatic lesion. July 05, 2023 bone scan: IMPRESSION: 1. 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 2. 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 3. Overall compared to the previous whole body bone scintigraphy study dated 12/28/2022, there is apparent progression of defined viable osseous neoplastic disease. If flare phenomenon is a diagnostic consideration, repeat whole body bone scintigraphy in 12-16 weeks is recommended. July 08, 2023 CT chest abdomen and pelvis: IMPRESSION: CT chest: Possible pneumonitis within the right middle lobe, otherwise normal CT chest with no evidence of metastatic disease. CT abdomen/pelvis: Stable liver lesions as described. No new lesions in the interval. Low-attenuation structures within the left kidney, unchanged in the interval with no new cysts or renal lesions seen. No distinct lymphadenopathy or ascites. Possible descending colitis. November 04, 2023 CT chest abdomen and pelvis: ABDOMEN Stable 8.5 mm cyst in the anterior aspect of the left lobe of liver. There is evidence of a 2.9 cm x 2.2 cm area of heterogeneous enhancement in the dome of the liver just inferior to the right hemidiaphragm. This was not well-seen on prior image. Metastatic deposit should be ruled out. Normal gallbladder and extrahepatic biliary system. Normal spleen. Normal pancreas. Normal bilateral adrenal glands. Normal right kidney. Stable small left renal cysts. Normal visualized stomach. Normal small intestine. There is abnormal appearance of the colon with circumferential wall thickening and thickening ostial pattern. Colitis should be ruled out. There is non-visualization of the appendix. Normal abdominal aorta. Normal inferior vena cava. Normal retroperitoneum. Normal abdominal wall. Disc space narrowing at the L3-L4 level. IMPRESSION: Abnormal appearance of the dome of the right lobe of the liver. A metastatic deposit should be ruled out. There is circumferential wall thickening of the colon suggestive of colitis. Stable compression of the T8 vertebrae November 25, 2023 Next generation sequencing (liquid ) showed PIK3CA mutation, in addition to K-george G12 C, NF1 mutations. April 12, 2024 CT chest abdomen and pelvis: IMPRESSION: Hepatic lesions as described, relatively stable since the previous study. Relatively stable compression of T8. Bony lesion of L2 vertebral body with increase in size and sclerosis. Increasing sclerotic lesions of the sacrum and iliac bone at the left sacroiliac joint. April 17, 2024 bone scan: IMPRESSION: 1. The increase in radiopharmaceutical concentration defined in the left proximal humerus, the left sacroiliac joint, the first lumbar vertebra, the right posterior first rib and newly apparent in the right posterior inferior acetabulum is most consistent with skeletal metastatic disease. 2. Facilitated uptake noted in the first and second ribs anteriorly on the right at the costochondral junction is most consistent with an inflammatory process or trauma-fracture. Accentuated tracer noted in the bilateral proximal tibial metaphyses may be further investigated with plain film radiography secondary to the intensity of uptake. 3. 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 4. Overall compared to the previous bone scintigraphy study dated 07/05/2023, there is persistent demonstration of skeletal metastatic disease. August 07, 2024 CT Chest, Abd, Pel w/Contrast IMPRESSION: CT chest: 1. No evidence of thoracic metastatic disease. 2. Stable T8 vertebral body compression fracture deformity. CT abdomen pelvis: 1. Increased size of the hepatic dome mass, presumably hepatic metastatic disease. 2. Continued sclerosis of the L2 vertebral body and SI joints, likely secondary to chemotherapy regimen. If concern for osseous metastatic disease, bone scan could be obtained for further evaluation. 3. No additional new or enlarging abdominopelvic metastatic disease. August 10, 2024 bone scan: FINDINGS: 1. THE AREA OF INCREASED OSSEOUS UPTAKE IN THE VICINITY OF C7 BEST SEEN ON THE POSTERIOR IMAGES WAS NOT NOTED ON THE PREVIOUS STUDY, CONCERNING FOR METASTATIC DISEASE.. 2. OSSEOUS UPTAKE IN THE LEFT SACROILIAC JOINT IS STABLE. 3. OSSEOUS UPTAKE IN THE 1ST LUMBAR VERTEBRA, STABLE. 4. NEW AREAS OF INCREASED OSSEOUS UPTAKE ARE NOTED IN THE RIGHT 3RD THROUGH 5THRIBS, MOST LIKELY METASTATIC. 5. RIGHT POSTERIOR 1ST RIB OSSEOUS UPTAKE IS STABLE. 6. DEGENERATIVE ARTHRITIC CHANGE IN THE BILATERAL SHOULDERS, STABLE. 7. NO ABNORMAL OSSEOUS UPTAKE IN THE BILATERAL KNEES. August 18, 2024 CTA chest: Emergency room visit with abdominal pain IMPRESSION: No evidence of filling defect to suggest pulmonary embolism. Right port, mastectomies and osseous metastatic disease again noted. August 18, 2024 CT abdomen and pelvis: IMPRESSION: 1. Interval enlargement hepatic dome hypoenhancing mass, mild concerning for worsening metastasis. 2. Rectosigmoid wall thickening, submucosal hyperemia and soft tissue stranding,concerning for acute infectious proctocolitis. 3. Stable diffuse osseous metastasis August 28, 2024 thoracic spine MRI: FINDINGS: Vertebrae: T1, T3, and T12 vertebral body STIR hyperintense and T1 hypointense lesions. A few tiny lesions are scattered in the vertebral bodies. T8 vertebral body fracture. Partially visualized L2 abnormalsignal. Alignment: Normal. No spondylolisthesis. Spinal Cord: Thoracic spinal cord is of normal size and signal intensities. No thoracic spinal cord lesions are identified. Multilevel perineural cysts. Disc spaces: Mild multilevel thoracic degenerative changes without central canalstenosis. Paraspinal Tissues: Mild paraspinous muscle fatty infiltration. Postcontrast images: Enhancement of the vertebral body lesions.. IMPRESSION: Dominant enhancing lesions, likely metastases, at T1, T3, and T12 vertebral bodies. Smaller lesions are noted in the T4 and L1 vertebral bodies. T8 vertebral body fracture redemonstrated. November 20, 2024 CT chest abdomen and pelvis: IMPRESSION: 1. Progression of hepatic and skeletal metastatic disease #2-right kidney clear cell carcinoma, incidental finding on imaging for metastatic breast cancer status post right partial nephrectomy February 2017. 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 Breast cancer treatment summary and response: * Systemic therapy: 1-AC followed by T 2015. 2- Hormonal therapy, anastrozole 2015?2017. 3- Hormonal therapy, fulvestrant with palbociclib October 2017?January 2018 a short trial but had progressive disease. 4- Hormonal therapy, exemestane and everolimus January 2018?March 2019 discontinued due to severe mucositis despite dose reduction. 5- Capecitabine March 2019-April 2022, main toxicity encountered was skin and GI, dose reduced by summer 2021 to 1000 mg in a.m. and 500 mg p.m. 2 weeks on 1 week off. Was in partial remission then progressed. 6-TDX-d (Enhertu) June 11, 2022-October 21, 2023: IN then progressive disease 7-TDM 1 (Kadcyla) was denied by insurance 8- capivasertib/fulvestrant December 13, 2023-July 2024 (capivasertinib dose reduction due to skin rash and mucositis); stable disease?then progression. 9- Trodelvy (Sacituzumab govitecan) September 07-November 16, 2024 (4 cycles) progressive disease 10-Taxotere December 21, 2024 * Left mastectomy with sentinel lymph node biopsy and prophylactic right mastectomy February 2016. Laparoscopic bilateral salpingo-oophorectomy February 2016. * Zometa every 3 months * Palliative radiation to right seventh rib May 2018 [facility] Medical History Encounter for chemotherapy management Central line complication Drug induced neutropenia Drug-induced skin rash Encounter for monitoring cardiotoxic drug therapy CINV (chemotherapy-induced nausea and vomiting) Encounter for education Iron deficiency anemia due to chronic blood loss Anemia Hypokalemia Lung nodule Kidney tumor Surgical History History of oophorectomy History of hysterectomy S/P mastectomy, bilateral Family History Grandfather Cancer Bone Heart disease Social History Smoking Status: Never smoker alcohol intake: never ROS Constitutional Constitutional: Reports systems reviewed and no addt'l complaints, except as documented and other Details: 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 ; Denies fatigue, fever(s) or weight loss Eyes Eyes: Reports systems reviewed and no addt'l complaints, except as documented and tearing; Denies change in vision ENT HEENT: Reports systems reviewed and no addt'l complaints, except as documented; Denies mucositis or nasal discharge Cardiovascular Cardiovascular: Reports systems reviewed and no addt'l complaints, except as documented; Denies chest pain with activity or edema Respiratory/Chest Respiratory/Chest: Reports systems reviewed and no addt'l complaints, except as documented; Denies cough or dyspnea on exertion Gastrointestinal Gastrointestinal: Reports systems reviewed and no addt'l complaints, except as documented and nausea; Denies diarrhea, hematochezia, melena or vomiting Genitourinary Genitourinary: Reports systems reviewed and no addt'l complaints, except as documented; Denies dysuria or hematuria Musculoskeletal Musculoskeletal: Reports systems reviewed and no addt'l complaints, except as documented, back pain and other Details: Back pain overall tolerable using OTC analgesics PRN Integumentary Integumentary: Reports systems reviewed and no addt'l complaints, except as documented and dry skin; Denies alopecia or rash Neurologic Neurologic: Reports systems reviewed and no addt'l complaints, except as documented; Denies focal weakness, headache(s) or paresthesias Psychiatric Psychiatric: Reports systems reviewed and no addt'l complaints, except as documented Endocrine Endocrinology: Reports systems reviewed and no addt'l complaints, except as documented Hematologic/Lymphatic Hematologic/Lymphatic: Reports systems reviewed and no addt'l complaints, exceptas documented; Denies easy bleeding or lymphadenopathy Allergic/Immunologic Allergic/Immunologic: Reports systems reviewed and no addt'l complaints, except as documented Intake Vital Signs 12/21/24 07:58 01/11/25 13:14 01/11/25 13:23 Height 5 ft 5 in 5 ft 5 in 5 ft 5 in Weight: 54.034 kg BMI 19.8 BP 120/82 H Blood Pressure Location Lt brachial Position Sitting Respiration 16 Pulse 70 Pulse Source Monitor Temp 97.6 F L Temperature Source Temporal Artery Pulse Oximetry (%) 99 Oxygen Delivery Method room air Intake Is patient in pain?: No Allergies oxycodone (From Percocet) Allergy (Verified 01/11/25 13:22) Vomiting Medications ?Medication ?Instructions ?Recorded ?Confirmed ?Type ondansetron 8 mg disintegrating 8 mg PO Q8H PRN nausea and 06/10/22 01/11/25 Rx tablet vomiting #30 tabs prochlorperazine maleate 10 mg 10 mg PO Q6H PRN nausea and 01/21/23 01/11/25 Rx tablet vomiting #30 tabs MAGIC MOUTH WASH (BMX) 180 mL 10 ml PO .4h PRN pain #1 80 mL 01/18/24 01/11/25 Rx suspension potassium chloride 20 mEq 20 meq PO TID #90 tabs 06/0601/11/25 Rx tablet,extended release ibuprofen 600 mg tablet 600 mg PO Q6H PRN PRN pain # 20 08/18/24 01/11/25 Rx TABLETS promethazine 25 mg rectal 25 mg IN Q6H PRN nausea and 08/18/24 01/11/25 Rx suppository vomiting #6 ea tramadol 50 mg tablet 50 mg PO Q6H PRN pain #15 ta bs 08/18/24 01/11/25 Rx dexamethasone 4 mg tablet 8 mg (2 x 4 mg) PO BID 3 day s #60 11/27/24 01/11/25 Rx tabs Have you fallen in the past year?: No Central Venous Access Central Venous Access: Yes Port/PICC: Port CBC January 11, 2025 reviewed in EMR, CMP pending Exam Physical Exam Narrative ECOG 1 Const alert, oriented x3, no apparent distress and average body habitus General Appearance: cooperative, comfortable and well kempt HEENT normocephalic Head and Scalp: normal to inspection Face and Sinus: normal facial exam Mouth: oral and palatal mucosa normal Eyes General Eye: normal appearance of both eyes Neck no lymphadenopathy and no JVD Lymph Lymphatic: no lymphadenopathy noted Chest Chest: symmetrical chest wall rise and vascular access Resp clear to auscultation bilaterally Cardio regular rate and regular rhythm Jugular Venous Distention: Negative for JVD GI soft to palpation, non-tender and non-distended; Negative for hepatosplenomegaly no CVA tenderness Back/Spine no thoracic nor lumbar tenderness Extremity no clubbing, cyanosis or edema Skin General Skin Exam: no breakdown, atrophy, dry skin, erythema, turgor decreased and other Skin of palms and soles, no open sores ; Negative for elasticity normal Neuro oriented x3, CN's II-XII intact bilaterally, moves all extremities and no focal motor deficits Coordination / Balance: [id number] test normal Speech: speech normal Gait (Neuro): normal gait Psych mental status grossly normal Coding Level of Care Code Off vis,est,level 4 Exam Problem Focused Diagnoses Malignant neoplasm of overlapping sites of left breast in female, estrogen receptor positive C50.812; Z17.0 Liver metastases C78.7 Bone metastases C79.51 Carcinoma of left breast metastatic to axillary lymph node C50.912; C77.3 Laterality: left Malignant neoplasm of right kidney, except renal pelvis C64.1 Anemia due to antineoplastic chemotherapy D64.81; T45.1X5A Anemia type: other cause Other causes of anemia: antineoplastic chemotherapy Iron deficiency anemia due to chronic blood loss D50.0 Assessment and Plan Assessment and Plan (1) Malignant neoplasm of overlapping sites of left breast in female, estrogen receptor positive: Status: Chronic (2) Liver metastases: Status: Chronic (3) Bone metastases: Status: Chronic (4) Breast cancer metastasized to axillary lymph node: Status: Chronic Qualifiers: Laterality: left Qualified Code(s): C50.912 - Malignant neoplasm of unspecified site of left female breast; C77.3 - Secondary and unspecified 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 (5) Malignant neoplasm of right kidney, except renal pelvis: Status: Chronic (6) Anemia: Status: Chronic Qualifiers: Anemia type: other cause Other causes of anemia: antineoplastic chemotherapy Qualified Code(s): D64.81 - Anemia due to antineoplastic chemotherapy; T45.1X5A - Adverse effect of antineoplastic and immunosuppressive drugs, initial encounter (7) Iron deficiency anemia due to chronic blood loss: Status: Chronic Plan 54-year-old female with #1- 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 Patient is status post chemotherapy?(Adriamycin Cytoxan followed by Taxol 2015),?hormonal therapy (2015?2018)?and systemic chemotherapy with?capecitabine March 2019-April 2022.? ? She has been on bone supportive therapy with Zometa every 3 months and received palliative radiation to the right seventh ribin May 2018. She tolerated capecitabine with main toxicities experienced being GI (nausea, diarrhea, hypokalemia) and skin (palmar plantar erythrodysesthesia). An upward trend in tumor marker CA 27-29 noted March 2022 continued and progressive disease in the liver confirmed by imaging in April 2022. Started systemic therapy with TDX-d (Enhertu: Anti-HER2;?Antineoplastic Agent, Antibody Drug Conjugate;) [?N Engl J Med. 2020;382(7):610. Ep2018Apr 26.?} June 11, 2022, Tolerated with no grade 3 or 4 toxicities and remained in a stable partial remission of her disease until October 2023 when she had evidence of disease progression (slowly rising marker, relapsing lesion in the liver on CT). 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 Based on the findings from next generation sequence of November 2023 she started further hormonal therapy with Faslodex capivasertib end of November 2023, due to skin reaction and mucositis capivasertib dose was reduced to 320 mg twice daily 4 days on then 3 days rest and has tolerated treatment with no recurrent toxicities. Imaging by CT scan April 2024 show no measurable recurrent disease in the chest and liver. Subtle asymptomatic changes on the bone scan of April 2024 may represent early asymptomatic progression of the disease. She remained clinically stable and her marker is hovering in the 70s range. Therefore, she continued systemic treatment with Faslodex and capivasertib. However, follow-up imaging July 2024 showed definite progression in the liver and bones. Hormonal therapy was discontinued. August 2024 she was switched to Trodelvy (Sacituzumab, govitecan), following 4 cycles of therapy imaging in November 2024 showed progression of disease. December 22, 2023 started systemic therapy with Taxotere, elected for the every 3-week schedule for convenience with work schedule. 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 2-Continue bone supportive therapy with Zometa every 12 weeks. 4-Elective imaging with CT chest abdomen and pelvis and bone scan every 3 months; next to schedule in March 2025 4-anemia of cancer and chemotherapy plus iron deficiency improved following IV iron. 5-tumor marker with every cycle. Patient was seen .? Impression and recommendations as above outlined discussed. Olivia Castillo MD Bundle Cutter, [facility] Divisions of Medical Oncology & Hematology Department of Internal Medicine [place] [id number] This note was generated using a voice recognition system software. Although it was reviewed by the author prior to finalization, it may still contain incorrect words, spelling, and punctuation that were not noted when reviewing prior to saving. If a clinically significant typo or inaccurately typed phrase is noted, please notify the author. Clinical Quality Measures Falls Risk Screening/Assistive Devices Have you fallen in the past year?: No 01/11/25 1344 <Electronically signed by Olivia humphreys MD> Date _ Olivia Castillo MD Cosigner Signature: Date (if applicable) CC: ~ [employer] Work Phone: [phone]) 228-391307-11-2025 Nuclear medicine Diagnostic study note [facility] Imaging Services [address] [place] [id number] Bone Scan Whole Body MR#: [id number] Acct: [id number] Name: CHASTITYGRACIELA Richy Rep #: [id number] : 1970 F 54 From: Dorian Reynolds MD PCP: Dr. Philly Garcia MD Status: REG C RANDELL Study:Bone Scan Whole Body Date of Exam: 11/24/24 Exam# [id number] Ordering Dr: Olivia Castillo MD PROCEDURE: BONE SCAN WHOLE BODY 11/24/2024 REASON FOR EXAM: F/U left BREAST CANCER TECHNIQUE: Delayed whole-body bone scan performed following radiopharmaceutical administration. RADIOPHARMACEUTICAL: 26.8 mCi Technetium-99m MDP IV. COMPARISON: Whole-body bone scan of 04/17/2024. FINDINGS: Progressive worsening of osseous metastatic disease in the right 3rd, 4th, 5th, and 6th ribs. Progressive worsening of osseous metastatic disease in the left iliac bone and left acetabular region. Worsening osseous metastatic disease in the L2, T12, T10, and probably additional vertebral bodies. Probable newly visualized osseous metastatic disease of the right L4 or L5 level. Question of osseous metastatic disease in sternum. Persistent increased uptake in the left humeral head, similar to the prior study, concerning for osseous metastatic disease. Persistent increased uptake in the right 1st rib, similar to the prior study, concerning for osseous metastatic disease. NM/Bone Scan Whole Body IMPRESSION: Overall worsening of osseous metastatic disease, as noted. Reading Location: [address] CC: Dr. Philly Garcia MD; Dr. Olivia Castillo MD ~ Canoe Maker: Signed [facility]07-08-2025 Progress [facility] [address] [place] [address] OFFICE VISIT Date of Service: 11/21/24 1016 MR#: [id number] Acct: [id number] Name: GRACIELA HAYWOOD Rep #: [id number] : 1970 From: Olivia morton MD Age/Sex: 54/F [place] [facility] [place]: Signed HPI Subjective Date of Service 11/21/24 Chief Complaint Breast cancer on treatment History of Present Illness 54-year-old female with metastatic breast cancer seen in second opinion November 2021. [facility] under the care of , switching to [facility] November 2021. #1-Left breast cancer, stage IV at presentation in 2015, ER positive (over 95% moderate), IN positive (27%, weak) and HER2 1+, that presented with a palpable lump in the left breast and staging revealed multiple bone metastases, liver metastases, and a right lung nodule. Patient received Adriamycin Cytoxan followed by Taxol and then underwent surgical debulking with left mastectomy, sentinel lymph node biopsy and a prophylactic right mastectomy in February 2016. At the same time she underwent laparoscopic bilateral salpingo-oophorectomy. Pathology February 2016 revealed multifocal residual invasive ductal cancer, metastatic cancer was found in 2 of 5 lymph nodes in addition to a single tumor deposit within the axillary fat. Following surgery patient received hormonal therapy (see below for summary) from 2015 through 2018.After progression on hormonal therapy she has been on single agent capecitabine since March 2019with stable disease. December 08, 2021 CT chest abdomen and pelvis: IMPRESSION: Small cysts in both lobes of the liver. Small cyst in the left kidney. Almost complete collapse of the T6 vertebrae. December 12, 2021 bone scan: IMPRESSION: Normal whole body nuclear bone scan. ? May 04, 2022 bone scan: IMPRESSION: 1. The increase in radiotracer concentration defined in the right anterior-posterior first rib is commensurate with trauma-fracture.? Plain film radiography correlation may be of benefit. 2.? Degenerative arthrosis is defined in the bilateral shoulders, the right knee, the second lumbar vertebra. 3.? Overall compared to the previous whole body bone scintigraphy study dated 12/12/2021, there is no significant interval change.? No definitive scintigraphic evidence of diffuse axial skeletal metastatic disease is apparent on the current examination. May 08, 2022 CT chest abdomen and pelvis: ABDOMEN There is a 2 cm x 2.1 cm hypodense nodule in the posterior aspect of the right dome of the liver.? A metastatic deposit should be ruled out.? Tiny cysts are also seen and these are unchanged.? Normal gallbladder and extrahepatic biliary system.? Normal spleen.? Normal pancreas. September 17, [address]: IMPRESSION: Interval mild regression of hypoechoic lesion dome of right lobe liver. Otherwise stable interval examination without other evidence of possible metastatic disease. No acute findings in the chest or abdomen. December 22, 2022 CT chest and abdomen: IMPRESSION: Interval decrease in size of the low-attenuation lesion in the dome of the right lobe of the liver. Stable hepatic cyst and left renal cysts. December 28, 2022 bone scan: IMPRESSION: 1. The increase in tracer uptake noted in the right first rib likely represents trauma-fracture. Uptake noted in the left proximal humeral metaphysis may be further investigated with plain film radiography. 2. Degenerative arthritis is defined in the right ankle, both shoulder articulations and right-left forefoot. 3. Overall compared to the previous whole body bone scintigraphy study dated 05/04/2022, there is minimal interval change, there is no definitive scintigraphic evidence of diffuse axial skeletal metastatic disease. Asymmetric uptake noted in the left proximal humerus on the current examination may be further assessed with plain film radiography as defined above. April 07, 2023 CT chest and abdomen: IMPRESSION: 1. Irregular low-attenuation lesion within the right hepatic lobe at the dome the liver, smaller since 05/08/2022 likely indicative of a treated metastasis. Other more well-defined low-attenuation foci within the liver have been unchanged and may be cysts although some of them are too small to further characterize. No new focal hepatic abnormality. 2. Left lower pole renal low-attenuation lesion with Hounsfield units of approximately 35-40 appears unchanged since at least 05/08/2022 and may be a complicated cyst rather than a solid lesion. 3. Mixed attenuation expansile lesion within the right first rib is nonspecific. This appears unchanged since 05/08/2022 and is indeterminate, perhaps a metastatic lesion. July 05, 2023 bone scan: IMPRESSION: 1. 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 2. 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 3. Overall compared to the previous whole body bone scintigraphy study dated 12/28/2022, there is apparent progression of defined viable osseous neoplastic disease. If flare phenomenon is a diagnostic consideration, repeat whole body bone scintigraphy in 12-16 weeks is recommended. July 08, 2023 CT chest abdomen and pelvis: IMPRESSION: CT chest: Possible pneumonitis within the right middle lobe, otherwise normal CT chest with no evidence of metastatic disease. CT abdomen/pelvis: Stable liver lesions as described. No new lesions in the interval. Low-attenuation structures within the left kidney, unchanged in the interval with no new cysts or renal lesions seen. No distinct lymphadenopathy or ascites. Possible descending colitis. November 04, 2023 CT chest abdomen and pelvis: ABDOMEN Stable 8.5 mm cyst in the anterior aspect of the left lobe of liver. There is evidence of a 2.9 cm x 2.2 cm area of heterogeneous enhancement in the dome of the liver just inferior to the right hemidiaphragm. This was not well-seen on prior image. Metastatic deposit should be ruled out. Normal gallbladder and extrahepatic biliary system. Normal spleen. Normal pancreas. Normal bilateral adrenal glands. Normal right kidney. Stable small left renal cysts. Normal visualized stomach. Normal small intestine. There is abnormal appearance of the colon with circumferential wall thickening and thickening ostial pattern. Colitis should be ruled out. There is non-visualization of the appendix. Normal abdominal aorta. Normal inferior vena cava. Normal retroperitoneum. Normal abdominal wall. Disc space narrowing at the L3-L4 level. IMPRESSION: Abnormal appearance of the dome of the right lobe of the liver. A metastatic deposit should be ruled out. There is circumferential wall thickening of the colon suggestive of colitis. Stable compression of the T8 vertebrae November 25, 2023 Next generation sequencing (liquid ) showed PIK3CA mutation, in addition to K-george G12C, NF1 mutations. April 12, 2024 CT chest abdomen and pelvis: IMPRESSION: Hepatic lesions as described, relatively stable since the previous study. Relatively stable compression of T8. Bony lesion of L2 vertebral body with increase in size and sclerosis. Increasing sclerotic lesions of the sacrum and iliac bone at the left sacroiliac joint. April 17, 2024 bone scan: IMPRESSION: 1. The increase in radiopharmaceutical concentration defined in the left proximal humerus, the left sacroiliac joint, the first lumbar vertebra, the right posterior first rib and newly apparent in the right posterior inferior acetabulum is most consistent with skeletal metastatic disease. 2. Facilitated uptake noted in the first and second ribs anteriorly on the right at the costochondral junction is most consistent with an inflammatory process or trauma-fracture. Accentuated tracer noted in the bilateral proximal tibial metaphyses may be further investigated with plain film radiography secondary to the intensity of uptake. 3. 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 4. Overall compared to the previous bone scintigraphy study dated 07/05/2023, there is persistent demonstration of skeletal metastatic disease. August 07, 2024 CT Chest, Abd, Pel w/Contrast IMPRESSION: CT chest: 1. No evidence of thoracic metastatic disease. 2. Stable T8 vertebral body compression fracture deformity. CT abdomen pelvis: 1. Increased size of the hepatic dome mass, presumably hepatic metastatic disease. 2. Continued sclerosis of the L2 vertebral body and SI joints, likely secondary to chemotherapy regimen. If concern for osseous metastatic disease, bone scan could be obtained for further evaluation. 3. No additional new or enlarging abdominopelvic metastatic disease. August 10, 2024 bone scan: FINDINGS: 1. THE AREA OF INCREASED OSSEOUS UPTAKE IN THE VICINITY OF C7 BEST SEEN ON THE POSTERIOR IMAGES WASNOT NOTED ON THE PREVIOUS STUDY, CONCERNING FOR METASTATIC DISEASE.. 2. OSSEOUS UPTAKE IN THE LEFT SACROILIAC JOINT IS STABLE. 3. OSSEOUS UPTAKE IN THE 1ST LUMBAR VERTEBRA, STABLE. 4. NEW AREAS OF INCREASED OSSEOUS UPTAKE ARE NOTED IN THE RIGHT 3RD THROUGH 5THRIBS, MOST LIKELY METASTATIC. 5. RIGHT POSTERIOR 1ST RIB OSSEOUS UPTAKE IS STABLE. 6. DEGENERATIVE ARTHRITIC CHANGE IN THE BILATERAL SHOULDERS, STABLE. 7. NO ABNORMAL OSSEOUS UPTAKE IN THE BILATERAL KNEES. August 18, 2024 CTA chest: Emergency room visit with abdominal pain IMPRESSION: No evidence of filling defect to suggest pulmonary embolism. Right port, mastectomies and osseous metastatic disease again noted. August 18, 2024 CT abdomen and pelvis: IMPRESSION: 1. Interval enlargement hepatic dome hypoenhancing mass, mild concerning for worsening metastasis. 2. Rectosigmoid wall thickening, submucosal hyperemia and soft tissue stranding,concerning for acute infectious proctocolitis. 3. Stable diffuse osseous metastasis August 28, 2024 thoracic spine MRI: FINDINGS: Vertebrae: T1, T3, and T12 vertebral body STIR hyperintense and T1 hypointense lesions. A few tiny lesions are scattered in the vertebral bodies. T8 vertebral body fracture. Partially visualized L2 abnormalsignal. Alignment: Normal. No spondylolisthesis. Spinal Cord: Thoracic spinal cord is of normal size and signal intensities. No thoracic spinal cordlesions are identified. Multilevel perineural cysts. Disc spaces: Mild multilevel thoracic degenerative changes without central canalstenosis. Paraspinal Tissues: Mild paraspinous muscle fatty infiltration. Postcontrast images: Enhancement of the vertebral body lesions.. IMPRESSION: Dominant enhancing lesions, likely metastases, at T1, T3, and T12 vertebral bodies. Smaller lesionsare noted in the T4 and L1 vertebral bodies. T8 vertebral body fracture redemonstrated. November 20, 2024 CT chest abdomen and pelvis: IMPRESSION: 1. Progression of hepatic and skeletal metastatic disease #2-right kidney clear cell carcinoma, incidental finding on imaging for metastatic breast cancer status post right partial nephrectomy February 2017. 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 Breast cancer treatment summary and response: * Systemic therapy: 1-AC followed by T 2015. 2- Hormonal therapy, anastrozole 2015?2017. 3- Hormonal therapy, fulvestrant with palbociclib October 2017?January 2018 a short trial but had progressive disease. 4- Hormonal therapy, exemestane and everolimus January 2018?March 2019 discontinued due to severe mucositis despite dose reduction. 5- Capecitabine March 2019-April 2022, main toxicity encountered was skin and GI, dose reduced by summer 2021 to 1000 mg in a.m. and 500 mg p.m. 2 weeks on 1 week off. Was in partial remission then progressed. 6-TDX-d (Enhertu) June 11, 2022-October 21, 2023: IN then progressive disease 7-TDM 1 (Kadcyla) was denied by insurance 8- capivasertib/fulvestrant December 13, 2023-July 2024 (capivasertinib dose reduction due to skin rash and mucositis); stable disease?then progression. 9- Trodelvy (Sacituzumab govitecan) September 07-November 16, 2024 (4 cycles) progressive disease 10-Datopotamab to start November 2019 * Left mastectomy with sentinel lymph node biopsy and prophylactic right mastectomy February 2016. Laparoscopic bilateral salpingo-oophorectomy February 2016. * Zometa every 3 months * Palliative radiation to right seventh rib May 2018 [facility] Medical History Central line complication Drug induced neutropenia Drug-induced skin rash Encounter for monitoring cardiotoxic drug therapy CINV (chemotherapy-induced nausea and vomiting) Encounter for education Iron deficiency anemia due to chronic blood loss Anemia Hypokalemia Lung nodule Kidney tumor Surgical History History of oophorectomy History of hysterectomy S/P mastectomy, bilateral Family History Grandfather Cancer Bone Heart disease Social History Smoking Status: Never smoker alcohol intake: never ROS Constitutional Constitutional: Reports systems reviewed and no addt'l complaints, except as documented and other Details: 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 ; Denies fatigue, fever(s) or weight loss Eyes Eyes: Reports systems reviewed and no addt'l complaints, except as documented; Denies change in vision ENT HEENT: Reports systems reviewed and no addt'l complaints, except as documented; Denies mucositis ornasal discharge Cardiovascular Cardiovascular: Reports systems reviewed and no addt'l complaints, except as documented; Denies chest pain with activity or edema Respiratory/Chest Respiratory/Chest: Reports systems reviewed and no addt'l complaints, except as documented; Denies cough or dyspnea on exertion Gastrointestinal Gastrointestinal: Reports systems reviewed and no addt'l complaints, except as documented; Denies diarrhea, hematochezia, melena, nausea or vomiting Genitourinary Genitourinary: Reports systems reviewed and no addt'l complaints, except as documented; Denies dysuria or hematuria Musculoskeletal Musculoskeletal: Reports systems reviewed and no addt'l complaints, except as documented, back painand other Details: Back pain overall tolerable using OTC analgesics PRN Integumentary Integumentary: Reports systems reviewed and no addt'l complaints, except as documented and dry skin; Denies alopecia or rash Neurologic Neurologic: Reports systems reviewed and no addt'l complaints, except as documented; Denies focal weakness, headache(s) or paresthesias Psychiatric Psychiatric: Reports systems reviewed and no addt'l complaints, except as documented Endocrine Endocrinology: Reports systems reviewed and no addt'l complaints, except as documented Hematologic/Lymphatic Hematologic/Lymphatic: Reports systems reviewed and no addt'l complaints, exceptas documented; Denies easy bleeding or lymphadenopathy Allergic/Immunologic Allergic/Immunologic: Reports systems reviewed and no addt'l complaints, except as documented Intake Vital Signs 11/16/24 10:45 11/21/24 10:17 Height 5 ft 5 in 5 ft 5 in Weight: 54.488 kg BMI 20.0 BP 103/68 Blood Pressure Location Rt brachial Position Sitting Respiration 16 Pulse 81 Pulse Source Monitor Intake Accompanied by: Self Is patient in pain?: No Allergies oxycodone (From Percocet) Allergy (Verified 11/21/24 10:22) Vomiting Medications ?Medication ?Instructions ?Recorded ?Confirmed ?Type ondansetron 8 mg disintegrating 8 mg PO Q8H PRN nausea and 06/10/22 11/21/24 Rx tablet vomiting #30 tabs prochlorperazine maleate 10 mg 10 mg PO Q6H PRN nausea and 01/21/23 11/21/24 Rx tablet vomiting #30 tabs MAGIC MOUTH WASH (BMX) 180 mL 10 ml PO .4h PRN pain #1 80 mL 01/18/24 11/21/24 Rx suspension potassium chloride 20 mEq 20 meq PO TID #90 tabs 06/0611/21/24 Rx tablet,extended release ibuprofen 600 mg tablet 600 mg PO Q6H PRN PRN pain # 20 08/18/24 11/21/24 Rx TABLETS promethazine 25 mg rectal 25 mg IN Q6H PRN nausea and 08/18/24 11/21/24 Rx suppository vomiting #6 ea tramadol 50 mg tablet 50 mg PO Q6H PRN pain #15 ta bs 08/18/24 11/21/24 Rx Central Venous Access Central Venous Access: Yes Port/PICC: Port (right) I personally reviewed patient CT scan images of November 2024 and concur with reported findings Exam Physical Exam Narrative ECOG 1 Const alert, oriented x3 and no apparent distress Coding Level of Care Code Off vis,est,level 5 Exam Problem Focused Diagnoses Malignant neoplasm of overlapping sites of left breast in female, estrogen receptor positive C50.812; Z17.0 Liver metastases C78.7 Bone metastases C79.51 Carcinoma of left breast metastatic to axillary lymph node C50.912; C77.3 Laterality: left Malignant neoplasm of right kidney, except renal pelvis C64.1 Anemia due to antineoplastic chemotherapy D64.81; T45.1X5A Anemia type: other cause Other causes of anemia: antineoplastic chemotherapy Iron deficiency anemia due to chronic blood loss D50.0 Assessment and Plan Assessment and Plan (1) Malignant neoplasm of overlapping sites of left breast in female, estrogen receptor positive: Status: Chronic (2) Liver metastases: Status: Chronic (3) Bone metastases: Status: Chronic (4) Breast cancer metastasized to axillary lymph node: Status: Chronic Qualifiers: Laterality: left Qualified Code(s): C50.912 - Malignant neoplasm of unspecified site of left femalebreast; C77.3 - Secondary and unspecified 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 (5) Malignant neoplasm of right kidney, except renal pelvis: Status: Chronic (6) Anemia: Status: Chronic Qualifiers: Anemia type: other cause Other causes of anemia: antineoplastic chemotherapy Qualified Code(s): D64.81 - Anemia due to antineoplastic chemotherapy; T45.1X5A - Adverse effect of antineoplastic and immunosuppressive drugs, initial encounter (7) Iron deficiency anemia due to chronic blood loss: Status: Chronic Plan 54-year-old female with #1- 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 Patient is status post chemotherapy?(Adriamycin Cytoxan followed by Taxol 2015),?hormonal therapy (2016?2019)?and systemic chemotherapy with?capecitabine March 2019-April 2022.? ? She has been on bone supportive therapy with Zometa every 3 months and received palliative radiation to the rightseventh ribin May 2018. She tolerated capecitabine with main toxicities experienced being GI (nausea, diarrhea, hypokalemia) and skin (palmar plantar erythrodysesthesia). An upward trend in tumor marker CA 27-29 noted March 2022 continued and progressive disease in the liver confirmed by imaging in April 2022. Started systemic therapy with TDX-d (Enhertu: Anti-HER2;?Antineoplastic Agent, Antibody Drug Conjugate;) [?N Engl J Med. 2020;382(7):610. Ep2018Apr 26.?} June 11, 2022, Tolerated with no grade3 or 4 toxicities and remained in a stable partial remission of her disease until October 2023 when she had evidence of disease progression (slowly rising marker, relapsing lesion in the liver on CT). 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 Based on the findings from next generation sequence of November 2023 she started further hormonal therapy with Faslodex capivasertib end of November 2023, due to skin reaction and mucositis capivasertib dosewas reduced to 320 mg twice daily 4 days on then 3 days rest and has tolerated treatment with no recurrent toxicities. Imaging by CT scan April 2024 show no measurable recurrent disease in the chest and liver. Subtle asymptomatic changes on the bone scan of April 2024 may represent early asymptomatic progression of the disease. She remained clinically stable and her marker is hovering in the 70s range. Therefore, she continued systemic treatment with Faslodex and capivasertib. However, follow-up imaging July 2024 showed definite progression in the liver and bones. Hormonal therapy was discontinued. August 2024 she was switched to Trodelvy (Sacituzumab, govitecan), following 4 cycles of therapy imaging in November 2024 showed progression of disease. 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 Plan:?Based on NCCN guidelines and up-to-date review of treatment of HR positive HER2/adry low hormone refractory metastatic breast cancer: 1- Next line of therapy with Datopotamab. Continue supportive treatment including growth factor since the patient has been extensively pretreated and has bone and bone marrow metastatic disease Discussed potential toxicities and specifically infusion reactions and eye toxicities. She will have a visit with ophthalmology prior to starting therapy to establish a baseline. 2-Continue bone supportive therapy with Zometa every 12 weeks. 4-Elective imaging with CT chest abdomen and pelvis and bone scan every 3 months; next to schedule in the last week of November 2024 4-anemia of cancer and chemotherapy plus iron deficiency improved following IV iron. 5-tumor marker with every cycle. Patient was seen .? Impression and recommendations as above outlined discussed. Olivia Castillo MD Bundle Cutter, [facility] Divisions of Medical Oncology & Hematology Department of Internal Medicine [place] [id number] This note was generated using a voice recognition system software. Although it was reviewed by the author prior to finalization, it may still contain incorrect words, spelling, and punctuation that were not noted when reviewing prior to saving. If a clinically significant typo or inaccurately typedphrase is noted, please notify the author. 11/21/24 1108 petr SARMIENTO> Date _ Olivia Castillo MD Cosigner Signature: Date (if applicable) CC: Dr. Philly Garcia MD ~ [facility]07-07-2025 Radiology Diagnostic study note [facility] Imaging Services [address] [place] [id number] Chest, Abd, Pel w/Contrast MR#: [id number] Acct: [id number] Name: GRACIELA HAYWOOD Rep #: [id number] : 1970 F 54 From: Mode Abernathy MD PCP: Dr. Philly Garcia MD Status: REG C RANDELL Study:CT Chest, Abd, Pel w/Contrast Date of E armando: 11/20/24 Exam# [id number] Ordering Dr: Olivia Castillo MD PROCEDURE: CT CHEST, ABD, PEL W/CONTRAST 11/20/2024 REASON FOR EXAM: F/U BREAST CANCER IV CONTRAST ONLY TECHNIQUE: Chest, abdomen and pelvis CT with intravenous contrast. Coronal and Sagittal reconstruction series were provided. One or more dose reduction techniques were used (e.g., Automated exposure control, adjustment of the mA and/or kV according to patient size, use of iterative reconstruction technique. PATIENT PREPARATION: Per protocol ORAL CONTRAST TYPE: None. AMOUNT: mL CONTRAST: Isovue-300 VOLUME: 100mL RADIATION DOSE SUMMARY: CTDlvol: 19.65 mGy DLP: 474.71 mGycm COMPARISON: CT chest abdomen and pelvis with IV contrast, 08/07/2024. FINDINGS: CT CHEST: Lower neck: There is a coarse calcification in the right thyroid lobe. There isno supraclavicular lymphadenopathy. Mediastinum there is no mediastinal or hilar lymphadenopathy. Heart and Vasculature: The heart size is normal. There is no pericardial effusion. The thoracic aorta is unremarkable. There is no calcific vascular disease of the thoracic aorta or coronary arteries evident. Lungs, airways and pleura: There are no pulmonary nodules or masses. There is no significant interstitial or alveolar lung disease. There are no pleural effusions. Chest wall: Patient is status post bilateral mastectomy and axillary lymph node dissection. There is a chemotherapy port in the right upper chest wall with the tip in the superior vena cava via the right internal jugular vein. There are multiple mixed lytic and sclerotic foci throughout the visualized axial and appendicular skeleton, several of which were not present previously. There is a large lytic lesion in the T12 vertebral body, and there is an apparent cortical defect in the inferior endplate of T12. There is a severe compression fracture of T8 not significantly changed. CT ABDOMEN/PELVIS: Liver: The large ill-defined mass in the liver dome has increased in size since the prior exam, nowmeasuring 4.9 x 3.4 cm (was 3.6 x 3.4 cm). There has been interval development of multiple small ill-defined nodules throughoutthe liver. There is a low-density nodule in the left hepatic lobe consistent with a cyst. Gallbladder: Normal. Spleen: Normal. Pancreas: Normal. Adrenals: Normal. Kidneys: There are stable cortical cysts in the left kidney. Bladder: Normal unenhanced appearance. Reproductive Organs: The uterus is unremarkable. The ovaries are not identified. There is no free fluid in the pelvis. There is no inguinal lymphadenopathy. Bowel: No significant abnormality. Appendix: Not identified. Lymph nodes: There is no significant mesenteric, retroperitoneal or pelvic lymphadenopathy. Vasculature: There is minimal calcific vascular disease of the abdominal aorta. The inferior vena cava and portal venous system are normal. Peritoneum / Retroperitoneum: There are no abnormal intra or retroperitoneal masses or fluid collections. There are no abdominal wall defects. Bones: There are mixed lytic and sclerotic foci in the visualized axial and appendicular skeleton. There is a moderate chronic pathologic fracture of L2 which appears to have progressed since the prior exam. CT/CT Chest, Abd, Pel w/Contrast IMPRESSION: 1. Progression of hepatic and skeletal metastatic disease as described. 2. Other findings as noted, not significantly changed. Reading Location: [id number] CC: Dr. Philly Garcia MD; Dr. Olivia Castillo MD ~ [employer]oe [employer]: Signed [facility] Work Phone: [phone]) 880-982506-26-2025 Evaluation note* Diagnosis Onset Date Resolution Status Admit Date Anemia chronic November 09 10:37am Bone metastases chronic October 10:37am Breast cancer metastasized t o axillary lymph node chronic November 09, 2 025 10:37am Iron deficiency anemia due t o chronic blood loss chronic November 09 10:37am Liver metastases chronic October 10:37am Malignant neoplasm of overlapping sites of left breast in female, estrogen chronic November 09, 2024 10:37am Malignant neoplasm of right kidney, except renal pelvis chronic November 09, 2024 10:37am Anemia chronic November 16, 2024 9:55am Bone metastases chronic November 16, 2024 9:55am Breast cancer metastasized t o axillary lymph node chronic November 16 9:55am Iron deficiency anemia due t o chronic blood loss chronic November 16 9:55am Liver metastases chronic November 9:55am Malignant neoplasm of overlapping sites of left breast in female, estrogen chronic November 16, 2024 9:55am Malignant neoplasm of right kidney, except renal pelvis chronic November 16, 2024 9:55am Anemia chronic November 21, 2024 10:08am Bone metastases chronic November 21, 2024 10:08am Breast cancer metastasized t o axillary lymph node chronic November 21 10:08am Iron deficiency anemia due t o chronic blood loss chronic November 21 10:08am Liver metastases chronic November 10:08am Malignant neoplasm of overlapping sites of left breast in female, estrogen chronic November 21, 2024 10:08am Malignant neoplasm of right kidney, except renal pelvis chronic November 21, 2024 10:08am Encounter for chemotherapy management acute December 21, 2024 7:26am Anemia chronic December 21 7:26am Bone metastases chronic December 7:26am Breast cancer metastasized t o axillary lymph node chronic December 21, 2024 7:26am Liver metastases chronic December 212024 7:26am Malignant neoplasm of overlapping sites of left breast in female, estrogen chronic Augus 2024 7:26am Malignant neoplasm of right kidney, except renal pelvis chronic Aug2024 7:26am Anemia chronic January 11, 2 025 12:19pm Bone metastases chronic January 112024 12:19pm Breast cancer metastasized t o axillary lymph node chronic January 11, 2025 12:19pm Iron deficiency anemia due t o chronic blood loss chronic January 11, 2025 12:19pm Liver metastases chronic December 162024 12:19pm Malignant neoplasm of overlapping sites of left breast in female, estrogen chronic Augus t 2024 12:19pm Malignant neoplasm of right kidney, except renal pelvis chronic Augu st 2024 12:19pm Anemia chronic January 12:23pm Bone metastases chronic February 01, 2025 12:23pm Breast cancer metastasized t o axillary lymph node chronic February 012024 12:23pm Iron deficiency anemia due t o chronic blood loss chronic January 12:23pm Liver metastases chronic Septembe r 2024 12:23pm Malignant neoplasm of overlapping sites of left breast in female, estrogen chronic Septe mber 2024 12:23pm Malignant neoplasm of right kidney, except renal pelvis chronic Sept ember 2024 12:23pm Anemia chronic February 22, 2 025 12:22pm Bone metastases chronic February 222024 12:22pm Breast cancer metastasized t o axillary lymph node chronic February 22, 2025 12:22pm Iron deficiency anemia due t o chronic blood loss chronic February 22, 2025 12:22pm Liver metastases chronic February 22, 2025 12:22pm Malignant neoplasm of overlapping sites of left breast in female, estrogen chronic Octob er 2024 12:22pm Malignant neoplasm of right kidney, except renal pelvis chronic Octo thomas 2024 12:22pm [facility] Work Phone: 1(685) 176-305806-26-2025 Progress [facility] [address] [place] [address] OFFICE VISIT Date of Service: 11/09/24 1119 MR#: [id number] Acct: [id number] Name: HAYWOODGRACIELA Richy Rep #: [id number] : 1970 From: Olivia morton MD Age/Sex: 54/F Location: [facility] Status: Signed HPI Subjective Date of Service 11/09/24 Chief Complaint Breast cancer on treatment History of Present Illness 54-year-old female with metastatic breast cancer seen in second opinion November 2021. [facility] of , switching to [facility] November 2021. #1-Left breast cancer, stage IV at presentation in 2015, ER positive (over 95% moderate), IN positive (27%, weak) and HER2 1+, that presented with a palpable lump in the left breast and staging revealed multiple bone metastases, liver metastases, and a right lung nodule. Patient received Adriamycin Cytoxan followed by Taxol and then underwent surgical debulking with left mastectomy, sentinel lymph node biopsy and a prophylactic right mastectomy in February 2016. At the same time she underwent laparoscopic bilateral salpingo-oophorectomy. Pathology February 2016 revealed multifocal residual invasive ductal cancer, metastatic cancer was found in 2 of 5 lymph nodes in addition to a single tumor deposit within the axillary fat. Following surgery patient received hormonal therapy (see below for summary) from 2016 through 2018.After progression on hormonal therapy she has been on single agent capecitabine since March 2019with stable disease. December 08, 2021 CT chest abdomen and pelvis: IMPRESSION: Small cysts in both lobes of the liver. Small cyst in the left kidney. Almost complete collapse of the T6 vertebrae. December 12, 2021 bone scan: IMPRESSION: Normal whole body nuclear bone scan. ? May 04, 2022 bone scan: IMPRESSION: 1. The increase in radiotracer concentration defined in the right anterior-posterior first rib is commensurate with trauma-fracture.? Plain film radiography correlation may be of benefit. 2.? Degenerative arthrosis is defined in the bilateral shoulders, the right knee, the second lumbar vertebra. 3.? Overall compared to the previous whole body bone scintigraphy study dated 12/12/2021, there is no significant interval change.? No definitive scintigraphic evidence of diffuse axial skeletal metastatic disease is apparent on the current examination. May 08, 2022 CT chest abdomen and pelvis: ABDOMEN There is a 2 cm x 2.1 cm hypodense nodule in the posterior aspect of the right dome of the liver.? A metastatic deposit should be ruled out.? Tiny cysts are also seen and these are unchanged.? Normal gallbladder and extrahepatic biliary system.? Normal spleen.? Normal pancreas. September 17, [address]: IMPRESSION: Interval mild regression of hypoechoic lesion dome of right lobe liver. Otherwise stable interval examination without other evidence of possible metastatic disease. No acute findings in the chest or abdomen. December 22, 2022 CT chest and abdomen: IMPRESSION: Interval decrease in size of the low-attenuation lesion in the dome of the right lobe of the liver. Stable hepatic cyst and left renal cysts. December 28, 2022 bone scan: IMPRESSION: 1. The increase in tracer uptake noted in the right first rib likely represents trauma-fracture. Uptake noted in the left proximal humeral metaphysis may be further investigated with plain film radiography. 2. Degenerative arthritis is defined in the right ankle, both shoulder articulations and right-left forefoot. 3. Overall compared to the previous whole body bone scintigraphy study dated 05/04/2022, there is minimal interval change, there is no definitive scintigraphic evidence of diffuse axial skeletal metastatic disease. Asymmetric uptake noted in the left proximal humerus on the current examination may be further assessed with plain film radiography as defined above. April 07, 2023 CT chest and abdomen: IMPRESSION: 1. Irregular low-attenuation lesion within the right hepatic lobe at the dome the liver, smaller since 05/08/2022 likely indicative of a treated metastasis. Other more well-defined low-attenuation foci within the liver have been unchanged and may be cysts although some of them are too small to further characterize. No new focal hepatic abnormality. 2. Left lower pole renal low-attenuation lesion with Hounsfield units of approximately 35-40 appears unchanged since at least 05/08/2022 and may be a complicated cyst rather than a solid lesion. 3. Mixed attenuation expansile lesion within the right first rib is nonspecific. This appears unchanged since 05/08/2022 and is indeterminate, perhaps a metastatic lesion. July 05, 2023 bone scan: IMPRESSION: 1. 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 2. 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 3. Overall compared to the previous whole body bone scintigraphy study dated 12/28/2022, there is apparent progression of defined viable osseous neoplastic disease. If flare phenomenon is a diagnostic consideration, repeat whole body bone scintigraphy in 12-16 weeks is recommended. July 08, 2023 CT chest abdomen and pelvis: IMPRESSION: CT chest: Possible pneumonitis within the right middle lobe, otherwise normal CT chest with no evidence of metastatic disease. CT abdomen/pelvis: Stable liver lesions as described. No new lesions in the interval. Low-attenuation structures within the left kidney, unchanged in the interval with no new cysts or renal lesions seen. No distinct lymphadenopathy or ascites. Possible descending colitis. November 04, 2023 CT chest abdomen and pelvis: ABDOMEN Stable 8.5 mm cyst in the anterior aspect of the left lobe of liver. There is evidence of a 2.9 cm x 2.2 cm area of heterogeneous enhancement in the dome of the liver just inferior to the right hemidiaphragm. This was not well-seen on prior image. Metastatic deposit should be ruled out. Normal gallbladder and extrahepatic biliary system. Normal spleen. Normal pancreas. Normal bilateral adrenal glands. Normal right kidney. Stable small left renal cysts. Normal visualized stomach. Normal small intestine. There is abnormal appearance of the colon with circumferential wall thickening and thickening ostial pattern. Colitis should be ruled out. There is non-visualization of the appendix. Normal abdominal aorta. Normal inferior vena cava. Normal retroperitoneum. Normal abdominal wall. Disc space narrowing at the L3-L4 level. IMPRESSION: Abnormal appearance of the dome of the right lobe of the liver. A metastatic deposit should be ruled out. There is circumferential wall thickening of the colon suggestive of colitis. Stable compression of the T8 vertebrae November 25, 2023 Next generation sequencing (liquid ) showed PIK3CA mutation, in addition to K-george G12C, NF1 mutations. April 12, 2024 CT chest abdomen and pelvis: IMPRESSION: Hepatic lesions as described, relatively stable since the previous study. Relatively stable compression of T8. Bony lesion of L2 vertebral body with increase in size and sclerosis. Increasing sclerotic lesions of the sacrum and iliac bone at the left sacroiliac joint. April 17, 2024 bone scan: IMPRESSION: 1. The increase in radiopharmaceutical concentration defined in the left proximal humerus, the left sacroiliac joint, the first lumbar vertebra, the right posterior first rib and newly apparent in the right posterior inferior acetabulum is most consistent with skeletal metastatic disease. 2. Facilitated uptake noted in the first and second ribs anteriorly on the right at the costochondral junction is most consistent with an inflammatory process or trauma-fracture. Accentuated tracer noted in the bilateral proximal tibial metaphyses may be further investigated with plain film radiography secondary to the intensity of uptake. 3. 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 4. Overall compared to the previous bone scintigraphy study dated 07/05/2023, there is persistent demonstration of skeletal metastatic disease. August 07, 2024 CT Chest, Abd, Pel w/Contrast IMPRESSION: CT chest: 1. No evidence of thoracic metastatic disease. 2. Stable T8 vertebral body compression fracture deformity. CT abdomen pelvis: 1. Increased size of the hepatic dome mass, presumably hepatic metastatic disease. 2. Continued sclerosis of the L2 vertebral body and SI joints, likely secondary to chemotherapy regimen. If concern for osseous metastatic disease, bone scan could be obtained for further evaluation. 3. No additional new or enlarging abdominopelvic metastatic disease. August 10, 2024 bone scan: FINDINGS: 1. THE AREA OF INCREASED OSSEOUS UPTAKE IN THE VICINITY OF C7 BEST SEEN ON THE POSTERIOR IMAGES WASNOT NOTED ON THE PREVIOUS STUDY, CONCERNING FOR METASTATIC DISEASE.. 2. OSSEOUS UPTAKE IN THE LEFT SACROILIAC JOINT IS STABLE. 3. OSSEOUS UPTAKE IN THE 1ST LUMBAR VERTEBRA, STABLE. 4. NEW AREAS OF INCREASED OSSEOUS UPTAKE ARE NOTED IN THE RIGHT 3RD THROUGH 5THRIBS, MOST LIKELY METASTATIC. 5. RIGHT POSTERIOR 1ST RIB OSSEOUS UPTAKE IS STABLE. 6. DEGENERATIVE ARTHRITIC CHANGE IN THE BILATERAL SHOULDERS, STABLE. 7. NO ABNORMAL OSSEOUS UPTAKE IN THE BILATERAL KNEES. August 18, 2024 CTA chest: Emergency room visit with abdominal pain IMPRESSION: No evidence of filling defect to suggest pulmonary embolism. Right port, mastectomies and osseous metastatic disease again noted. August 18, 2024 CT abdomen and pelvis: IMPRESSION: 1. Interval enlargement hepatic dome hypoenhancing mass, mild concerning for worsening metastasis. 2. Rectosigmoid wall thickening, submucosal hyperemia and soft tissue stranding,concerning for acute infectious proctocolitis. 3. Stable diffuse osseous metastasis August 28, 2024 thoracic spine MRI: FINDINGS: Vertebrae: T1, T3, and T12 vertebral body STIR hyperintense and T1 hypointense lesions. A few tiny lesions are scattered in the vertebral bodies. T8 vertebral body fracture. Partially visualized L2 abnormalsignal. Alignment: Normal. No spondylolisthesis. Spinal Cord: Thoracic spinal cord is of normal size and signal intensities. No thoracic spinal cordlesions are identified. Multilevel perineural cysts. Disc spaces: Mild multilevel thoracic degenerative changes without central canalstenosis. Paraspinal Tissues: Mild paraspinous muscle fatty infiltration. Postcontrast images: Enhancement of the vertebral body lesions.. IMPRESSION: Dominant enhancing lesions, likely metastases, at T1, T3, and T12 vertebral bodies. Smaller lesionsare noted in the T4 and L1 vertebral bodies. T8 vertebral body fracture redemonstrated. #2-right kidney clear cell carcinoma, incidental finding on imaging for metastatic breast cancer status post right partial nephrectomy February 2017. 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 Breast cancer treatment summary and response: * Systemic therapy: 1-AC followed by T 2015. 2- Hormonal therapy, anastrozole 2015?2017. 3- Hormonal therapy, fulvestrant with palbociclib October 2017?January 2018 a short trial but had progressive disease. 4- Hormonal therapy, exemestane and everolimus January 2018?March 2019 discontinued due to severe mucositis despite dose reduction. 5- Capecitabine March 2019-April 2022, main toxicity encountered was skin and GI, dose reduced by summer 2021 to 1000 mg in a.m. and 500 mg p.m. 2 weeks on 1 week off. Was in partial remission then progressed. 6-TDX-d (Enhertu) June 11, 2022-October 21, 2023: IN then progressive disease 7-TDM 1 (Kadcyla) was denied by insurance 8- capivasertib/fulvestrant December 13, 2023-July 2024 (capivasertinib dose reduction due to skin rash and mucositis); stable disease?then progression. 9- Trodelvy (Sacituzumab govitecan) September 07, 2024 * Left mastectomy with sentinel lymph node biopsy and prophylactic right mastectomy February 2016. Laparoscopic bilateral salpingo-oophorectomy February 2016. * Zometa every 3 months * Palliative radiation to right seventh rib May 2018 [facility] Medical History Central line complication Drug induced neutropenia Drug-induced skin rash Encounter for monitoring cardiotoxic drug therapy CINV (chemotherapy-induced nausea and vomiting) Encounter for education Iron deficiency anemia due to chronic blood loss Anemia Hypokalemia Lung nodule Kidney tumor Surgical History History of oophorectomy History of hysterectomy S/P mastectomy, bilateral Family History Grandfather Cancer Bone Heart disease Social History Smoking Status: Never smoker alcohol intake: never ROS Constitutional Constitutional: Reports systems reviewed and no addt'l complaints, except as documented and other Details: 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 ; Denies fatigue, fever(s) or weight loss Eyes Eyes: Reports systems reviewed and no addt'l complaints, except as documented; Denies change in vision ENT HEENT: Reports systems reviewed and no addt'l complaints, except as documented; Denies mucositis ornasal discharge Cardiovascular Cardiovascular: Reports systems reviewed and no addt'l complaints, except as documented; Denies chest pain with activity or edema Respiratory/Chest Respiratory/Chest: Reports systems reviewed and no addt'l complaints, except as documented; Denies cough or dyspnea on exertion Gastrointestinal Gastrointestinal: Reports systems reviewed and no addt'l complaints, except as documented; Denies diarrhea, hematochezia, melena, nausea or vomiting Genitourinary Genitourinary: Reports systems reviewed and no addt'l complaints, except as documented; Denies dysuria or hematuria Musculoskeletal Musculoskeletal: Reports systems reviewed and no addt'l complaints, except as documented, back painand other Details: Back pain overall tolerable using OTC analgesics PRN Integumentary Integumentary: Reports systems reviewed and no addt'l complaints, except as documented and dry skin; Denies alopecia or rash Neurologic Neurologic: Reports systems reviewed and no addt'l complaints, except as documented; Denies focal weakness, headache(s) or paresthesias Psychiatric Psychiatric: Reports systems reviewed and no addt'l complaints, except as documented Endocrine Endocrinology: Reports systems reviewed and no addt'l complaints, except as documented Hematologic/Lymphatic Hematologic/Lymphatic: Reports systems reviewed and no addt'l complaints, exceptas documented; Denies easy bleeding or lymphadenopathy Allergic/Immunologic Allergic/Immunologic: Reports systems reviewed and no addt'l complaints, except as documented Intake Vital Signs 10/05/24 11:40 11/09/24 11:20 11/09/24 11:22 Height 5 ft 5 in 5 ft 5 in 5 ft 5 in Weight: 55.055 kg BMI 20.2 BP 117/75 Blood Pressure Location Rt brachial Position Sitting Respiration 18 Pulse 66 Pulse Source Monitor Temp 98.5 F Temperature Source Temporal Artery Pulse Oximetry (%) 100 Oxygen Delivery Method room air Intake Accompanied by: Daughter Is patient in pain?: No Allergies oxycodone (From Percocet) Allergy (Verified 11/09/24 11:20) Vomiting Medications ?Medication ?Instructions ?Recorded ?Confirmed ?Type ondansetron 8 mg disintegrating 8 mg PO Q8H PRN nausea and 06/10/22 11/09/24 Rx tablet vomiting #30 tabs prochlorperazine maleate 10 mg 10 mg PO Q6H PRN nausea and 01/21/23 11/09/24 Rx tablet vomiting #30 tabs MAGIC MOUTH WASH (BMX) 180 mL 10 ml PO .4h PRN pain #1 80 mL 01/18/24 11/09/24 Rx suspension potassium chloride 20 mEq 20 meq PO TID #90 tabs 06/0611/09/24 Rx tablet,extended release ibuprofen 600 mg tablet 600 mg PO Q6H PRN PRN pain # 20 08/18/24 11/09/24 Rx TABLETS promethazine 25 mg rectal 25 mg IN Q6H PRN nausea and 08/18/24 11/09/24 Rx suppository vomiting #6 ea tramadol 50 mg tablet 50 mg PO Q6H PRN pain #15 ta bs 08/18/24 11/09/24 Rx Central Venous Access Central Venous Access: Yes Port/PICC: Port Laboratory Tests 12/08/21 12/29/21 01/22/22 06:25 15:30 15:38 CA 27-29 16.6 15.3 25.7 02/16/22 03/26/22 04/16/22 15:30 15:25 15:22 CA 27-29 21.9 39.3 H 48.0 H 05/19/22 06/11/22 07/02/22 15:15 11:26 13:29 CA 27-29 45.9 H 48.4 H 51.0 H 07/23/22 08/13/22 09/03/22 13:20 13:28 13:30 CA 27-29 52.4 H 49.1 H 51.9 H 09/24/22 12/10/22 12/31/22 13:30 13:25 11:15 CA 27-29 39.3 H 34.8 43.8 H 01/21/23 03/04/23 04/15/23 13:05 13:40 13:29 CA 27-29 43.7 H 38.3 44.0 H 06/17/23 07/29/23 08/19/23 13:05 12:35 12:32 CA 27-29 49.6 H 54.9 H 52.5 H 09/30/23 11/11/23 01/10/24 12:40 10:00 14:57 CA 27-29 61.7 H 78.7 H 79.1 H 02/07/24 03/06/24 04/03/24 13:56 14:42 14:49 CA 27-29 85.7 H 71.4 H 72.5 H 05/03/24 05/29/24 06/26/24 07:58 14:20 14:38 CA 27-29 75.9 H 105.1 H 107.6 H 07/24/24 09/07/24 10/19/24 14:45 08:21 09:23 CA 27-29 121.8 H 331.8 H 303.8 H Exam Physical Exam Narrative ECOG 1 Const alert and oriented x3 General Appearance: cooperative, comfortable and well kempt Coding Level of Care Code Off vis,est,level 4 Exam Problem Focused Diagnoses Malignant neoplasm of overlapping sites of left breast in female, estrogen receptor positive C50.812; Z17.0 Liver metastases C78.7 Bone metastases C79.51 Carcinoma of left breast metastatic to axillary lymph node C50.912; C77.3 Laterality: left Malignant neoplasm of right kidney, except renal pelvis C64.1 Anemia due to antineoplastic chemotherapy D64.81; T45.1X5A Anemia type: other cause Other causes of anemia: antineoplastic chemotherapy Iron deficiency anemia due to chronic blood loss D50.0 Assessment and Plan Assessment and Plan (1) Malignant neoplasm of overlapping sites of left breast in female, estrogen receptor positive: Status: Chronic (2) Liver metastases: Status: Chronic (3) Bone metastases: Status: Chronic (4) Breast cancer metastasized to axillary lymph node: Status: Chronic Qualifiers: Laterality: left Qualified Code(s): C50.912 - Malignant neoplasm of unspecified site of left femalebreast; C77.3 - Secondary and unspecified 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 (5) Malignant neoplasm of right kidney, except renal pelvis: Status: Chronic (6) Anemia: Status: Chronic Qualifiers: Anemia type: other cause Other causes of anemia: antineoplastic chemotherapy Qualified Code(s): D64.81 - Anemia due to antineoplastic chemotherapy; T45.1X5A - Adverse effect of antineoplastic and immunosuppressive drugs, initial encounter (7) Iron deficiency anemia due to chronic blood loss: Status: Chronic Plan 54-year-old female with #1- 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 Patient is status post chemotherapy?(Adriamycin Cytoxan followed by Taxol 2015),?hormonal therapy (2016?2019)?and systemic chemotherapy with?capecitabine March 2019-April 2022.? ? She has been on bone supportive therapy with Zometa every 3 months and received palliative radiation to the rightseventh ribin May 2018. She tolerated capecitabine with main toxicities experienced being GI (nausea, diarrhea, hypokalemia) and skin (palmar plantar erythrodysesthesia). An upward trend in tumor marker CA 27-29 noted March 2022 continued and progressive disease in the liver confirmed by imaging in April 2022. Started systemic therapy with TDX-d (Enhertu: Anti-HER2;?Antineoplastic Agent, Antibody Drug Conjugate;) [?N Engl J Med. 2020;382(7):610. Ep2018Apr 26.?} June 11, 2022, Tolerated with no grade3 or 4 toxicities and remained in a stable partial remission of her disease until October 2023 when she had evidence of disease progression (slowly rising marker, relapsing lesion in the liver on CT). 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 Based on the findings from next generation sequence of November 2023 she started further hormonal therapy with Faslodex capivasertib end of November 2023, due to skin reaction and mucositis capivasertib dosewas reduced to 320 mg twice daily 4 days on then 3 days rest and has tolerated treatment with no recurrent toxicities. Imaging by CT scan April 2024 show no measurable recurrent disease in the chest and liver. Subtle asymptomatic changes on the bone scan of April 2024 may represent early asymptomatic progression of the disease. She remained clinically stable and her marker is hovering in the 70s range. Therefore, she continued systemic treatment with Faslodex and capivasertib. However, follow-up imaging July 2024 showed definite progression in the liver and bones. Hormonal therapy was discontinued. August 2024 she was switched to Trodelvy (Sacituzumab, govitecan) Chronic comorbid conditions: History of right kidney cancer clear-cell status post right partial nephrectomy February 2017. Plan:?Based on NCCN guidelines and up-to-date review of treatment of HR positive HER2/adry low hormone refractory metastatic breast cancer: 1-start on September 07, 2024 standard treatment with Trodelvy (Sacituzumab govitecan); with supportivetreatment including growth factor. 2-Continue bone supportive therapy with Zometa every 12 weeks. 4-Elective imaging with CT chest abdomen and pelvis and bone scan every 3 months; next to schedule in the last week of November 2024 4-anemia of cancer and chemotherapy plus iron deficiency improved following IV iron. 5-tumor marker with every cycle. Patient was seen with family.? Impression and recommendations as above outlined discussed. November 09, 2024 visit was via telehealth video Olivia Castillo MD Bundle Cutter, [facility] Divisions of Medical Oncology & Hematology Department of Internal Medicine [address] [address] This note was generated using a voice recognition system software. Although it was reviewed by the author prior to finalization, it may still contain incorrect words, spelling, and punctuation that were not noted when reviewing prior to saving. If a clinically significant typo or inaccurately typedphrase is noted, please notify the author. 11/09/24 1137 petr SARMIENTO> Date _ Olivia Castillo MD Cosigner Signature: Date (if applicable) CC: ~ [facility]06-26-2025 Progress note Author Olivia Castillo [facility] Note Date/Time November 09, 2024 11:3 7am [facility] [place] [address] OFFICE VISIT Date of Service: 11/09/24 1119 MR#: [id number] Acct: [id number] Name: HAYWOODGRACIELA Richy Rep #: [id number] : 1970 From: Olivia morton MD Age/Sex: 54/F Location: [facility] Status: Signed HPI Subjective Date of Service 11/09/24 Chief Complaint Breast cancer on treatment History of Present Illness 54-year-old female with metastatic breast cancer seen in second opinion November 2021. Her initial care had been at [facility] under the care of , switching to [facility] care November 2021. #1-Left breast cancer, stage IV at presentation in 2015, ER positive (over 95% moderate), IN positive (27%, weak) and HER2 1+, that presented with a palpable lump in the left breast and staging revealed multiple bone metastases, liver metastases, and a right lung nodule. Patient received Adriamycin Cytoxan followed by Taxol and then underwent surgical debulking with left mastectomy, sentinel lymph node biopsy and a prophylactic right mastectomy in February 2016. At the same time she underwent laparoscopic bilateral salpingo-oophorectomy. Pathology February 2016 revealed multifocal residual invasive ductal cancer, metastatic cancer was found in 2 of 5 lymph nodes in addition to a single tumor deposit within the axillary fat. Following surgery patient received hormonal therapy (see below for summary) from 2015 through 2018. After progression on hormonal therapy she has been on single agent capecitabine since March 2019 with stable disease. December 08, 2021 CT chest abdomen and pelvis: IMPRESSION: Small cysts in both lobes of the liver. Small cyst in the left kidney. Almost complete collapse of the T6 vertebrae. December 12, 2021 bone scan: IMPRESSION: Normal whole body nuclear bone scan. ? May 04, 2022 bone scan: IMPRESSION: 1. The increase in radiotracer concentration defined in the right anterior-posterior first rib is commensurate with trauma-fracture.? Plain film radiography correlation may be of benefit. 2.? Degenerative arthrosis is defined in the bilateral shoulders, the right knee, the second lumbar vertebra. 3.? Overall compared to the previous whole body bone scintigraphy study dated 12/12/2021, there is no significant interval change.? No definitive scintigraphic evidence of diffuse axial skeletal metastatic disease is apparent on the current examination. May 08, 2022 CT chest abdomen and pelvis: ABDOMEN There is a 2 cm x 2.1 cm hypodense nodule in the posterior aspect of the right dome of the liver.? A metastatic deposit should be ruled out.? Tiny cysts are also seen and these are unchanged.? Normal gallbladder and extrahepatic biliary system.? Normal spleen.? Normal pancreas. September 17, [address]: IMPRESSION: Interval mild regression of hypoechoic lesion dome of right lobe liver. Otherwise stable interval examination without other evidence of possible metastatic disease. No acute findings in the chest or abdomen. December 22, 2022 CT chest and abdomen: IMPRESSION: Interval decrease in size of the low-attenuation lesion in the dome of the right lobe of the liver. Stable hepatic cyst and left renal cysts. December 28, 2022 bone scan: IMPRESSION: 1. The increase in tracer uptake noted in the right first rib likely represents trauma-fracture. Uptake noted in the left proximal humeral metaphysis may be further investigated with plain film radiography. 2. Degenerative arthritis is defined in the right ankle, both shoulder articulations and right-left forefoot. 3. Overall compared to the previous whole body bone scintigraphy study dated 05/04/2022, there is minimal interval change, there is no definitive scintigraphic evidence of diffuse axial skeletal metastatic disease. Asymmetric uptake noted in the left proximal humerus on the current examination may be further assessed with plain film radiography as defined above. April 07, 2023 CT chest and abdomen: IMPRESSION: 1. Irregular low-attenuation lesion within the right hepatic lobe at the dome the liver, smaller since 05/08/2022 likely indicative of a treated metastasis. Other more well-defined low-attenuation foci within the liver have been unchanged and may be cysts although some of them are too small to further characterize. No new focal hepatic abnormality. 2. Left lower pole renal low-attenuation lesion with Hounsfield units of approximately 35-40 appears unchanged since at least 05/08/2022 and may be a complicated cyst rather than a solid lesion. 3. Mixed attenuation expansile lesion within the right first rib is nonspecific. This appears unchanged since 05/08/2022 and is indeterminate, perhaps a metastatic lesion. July 05, 2023 bone scan: IMPRESSION: 1. 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 2. 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 3. Overall compared to the previous whole body bone scintigraphy study dated 12/28/2022, there is apparent progression of defined viable osseous neoplastic disease. If flare phenomenon is a diagnostic consideration, repeat whole body bone scintigraphy in 12-16 weeks is recommended. July 08, 2023 CT chest abdomen and pelvis: IMPRESSION: CT chest: Possible pneumonitis within the right middle lobe, otherwise normal CT chest with no evidence of metastatic disease. CT abdomen/pelvis: Stable liver lesions as described. No new lesions in the interval. Low-attenuation structures within the left kidney, unchanged in the interval with no new cysts or renal lesions seen. No distinct lymphadenopathy or ascites. Possible descending colitis. November 04, 2023 CT chest abdomen and pelvis: ABDOMEN Stable 8.5 mm cyst in the anterior aspect of the left lobe of liver. There is evidence of a 2.9 cm x 2.2 cm area of heterogeneous enhancement in the dome of the liver just inferior to the right hemidiaphragm. This was not well-seen on prior image. Metastatic deposit should be ruled out. Normal gallbladder and extrahepatic biliary system. Normal spleen. Normal pancreas. Normal bilateral adrenal glands. Normal right kidney. Stable small left renal cysts. Normal visualized stomach. Normal small intestine. There is abnormal appearance of the colon with circumferential wall thickening and thickening ostial pattern. Colitis should be ruled out. There is non-visualization of the appendix. Normal abdominal aorta. Normal inferior vena cava. Normal retroperitoneum. Normal abdominal wall. Disc space narrowing at the L3-L4 level. IMPRESSION: Abnormal appearance of the dome of the right lobe of the liver. A metastatic deposit should be ruled out. There is circumferential wall thickening of the colon suggestive of colitis. Stable compression of the T8 vertebrae November 25, 2023 Next generation sequencing (liquid ) showed PIK3CA mutation, in addition to K-george G12 C, NF1 mutations. April 12, 2024 CT chest abdomen and pelvis: IMPRESSION: Hepatic lesions as described, relatively stable since the previous study. Relatively stable compression of T8. Bony lesion of L2 vertebral body with increase in size and sclerosis. Increasing sclerotic lesions of the sacrum and iliac bone at the left sacroiliac joint. April 17, 2024 bone scan: IMPRESSION: 1. The increase in radiopharmaceutical concentration defined in the left proximal humerus, the left sacroiliac joint, the first lumbar vertebra, the right posterior first rib and newly apparent in the right posterior inferior acetabulum is most consistent with skeletal metastatic disease. 2. Facilitated uptake noted in the first and second ribs anteriorly on the right at the costochondral junction is most consistent with an inflammatory process or trauma-fracture. Accentuated tracer noted in the bilateral proximal tibial metaphyses may be further investigated with plain film radiography secondary to the intensity of uptake. 3. 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 4. Overall compared to the previous bone scintigraphy study dated 07/05/2023, there is persistent demonstration of skeletal metastatic disease. August 07, 2024 CT Chest, Abd, Pel w/Contrast IMPRESSION: CT chest: 1. No evidence of thoracic metastatic disease. 2. Stable T8 vertebral body compression fracture deformity. CT abdomen pelvis: 1. Increased size of the hepatic dome mass, presumably hepatic metastatic disease. 2. Continued sclerosis of the L2 vertebral body and SI joints, likely secondary to chemotherapy regimen. If concern for osseous metastatic disease, bone scan could be obtained for further evaluation. 3. No additional new or enlarging abdominopelvic metastatic disease. August 10, 2024 bone scan: FINDINGS: 1. THE AREA OF INCREASED OSSEOUS UPTAKE IN THE VICINITY OF C7 BEST SEEN ON THE POSTERIOR IMAGES WAS NOT NOTED ON THE PREVIOUS STUDY, CONCERNING FOR METASTATIC DISEASE.. 2. OSSEOUS UPTAKE IN THE LEFT SACROILIAC JOINT IS STABLE. 3. OSSEOUS UPTAKE IN THE 1ST LUMBAR VERTEBRA, STABLE. 4. NEW AREAS OF INCREASED OSSEOUS UPTAKE ARE NOTED IN THE RIGHT 3RD THROUGH 5THRIBS, MOST LIKELY METASTATIC. 5. RIGHT POSTERIOR 1ST RIB OSSEOUS UPTAKE IS STABLE. 6. DEGENERATIVE ARTHRITIC CHANGE IN THE BILATERAL SHOULDERS, STABLE. 7. NO ABNORMAL OSSEOUS UPTAKE IN THE BILATERAL KNEES. August 18, 2024 CTA chest: Emergency room visit with abdominal pain IMPRESSION: No evidence of filling defect to suggest pulmonary embolism. Right port, mastectomies and osseous metastatic disease again noted. August 18, 2024 CT abdomen and pelvis: IMPRESSION: 1. Interval enlargement hepatic dome hypoenhancing mass, mild concerning for worsening metastasis. 2. Rectosigmoid wall thickening, submucosal hyperemia and soft tissue stranding,concerning for acute infectious proctocolitis. 3. Stable diffuse osseous metastasis August 28, 2024 thoracic spine MRI: FINDINGS: Vertebrae: T1, T3, and T12 vertebral body STIR hyperintense and T1 hypointense lesions. A few tiny lesions are scattered in the vertebral bodies. T8 vertebral body fracture. Partially visualized L2 abnormalsignal. Alignment: Normal. No spondylolisthesis. Spinal Cord: Thoracic spinal cord is of normal size and signal intensities. No thoracic spinal cord lesions are identified. Multilevel perineural cysts. Disc spaces: Mild multilevel thoracic degenerative changes without central canalstenosis. Paraspinal Tissues: Mild paraspinous muscle fatty infiltration. Postcontrast images: Enhancement of the vertebral body lesions.. IMPRESSION: Dominant enhancing lesions, likely metastases, at T1, T3, and T12 vertebral bodies. Smaller lesions are noted in the T4 and L1 vertebral bodies. T8 vertebral body fracture redemonstrated. #2-right kidney clear cell carcinoma, incidental finding on imaging for metastatic breast cancer status post right partial nephrectomy February 2017. 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 Breast cancer treatment summary and response: * Systemic therapy: 1-AC followed by T 2015. 2- Hormonal therapy, anastrozole 2015?2017. 3- Hormonal therapy, fulvestrant with palbociclib October 2017?January 2018 a short trial but had progressive disease. 4- Hormonal therapy, exemestane and everolimus January 2018?March 2019 discontinued due to severe mucositis despite dose reduction. 5- Capecitabine March 2019-April 2022, main toxicity encountered was skin and GI, dose reduced by summer 2021 to 1000 mg in a.m. and 500 mg p.m. 2 weeks on 1 week off. Was in partial remission then progressed. 6-TDX-d (Enhertu) June 11, 2022-October 21, 2023: IN then progressive disease 7-TDM 1 ([place]) was denied by insurance 8- capivasertib/fulvestrant December 13, 2023-July 2024 (capivasertinib dose reduction due to skin rash and mucositis); stable disease?then progression. 9- Trodelvy (Sacituzumab govitecan) September 07, 2024 * Left mastectomy with sentinel lymph node biopsy and prophylactic right mastectomy February 2016. Laparoscopic bilateral salpingo-oophorectomy February 2016. * Zometa every 3 months * Palliative radiation to right seventh rib May 2018 [facility] Medical History Central line complication Drug induced neutropenia Drug-induced skin rash Encounter for monitoring cardiotoxic drug therapy CINV (chemotherapy-induced nausea and vomiting) Encounter for education Iron deficiency anemia due to chronic blood loss Anemia Hypokalemia Lung nodule Kidney tumor Surgical History History of oophorectomy History of hysterectomy S/P mastectomy, bilateral Family History Grandfather Cancer Bone Heart disease Social History Smoking Status: Never smoker alcohol intake: never ROS Constitutional Constitutional: Reports systems reviewed and no addt'l complaints, except as documented and other Details: 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 ; Denies fatigue, fever(s) or weight loss Eyes Eyes: Reports systems reviewed and no addt'l complaints, except as documented; Denies change in vision ENT HEENT: Reports systems reviewed and no addt'l complaints, except as documented; Denies mucositis or nasal discharge Cardiovascular Cardiovascular: Reports systems reviewed and no addt'l complaints, except as documented; Denies chest pain with activity or edema Respiratory/Chest Respiratory/Chest: Reports systems reviewed and no addt'l complaints, except as documented; Denies cough or dyspnea on exertion Gastrointestinal Gastrointestinal: Reports systems reviewed and no addt'l complaints, except as documented; Denies diarrhea, hematochezia, melena, nausea or vomiting Genitourinary Genitourinary: Reports systems reviewed and no addt'l complaints, except as documented; Denies dysuria or hematuria Musculoskeletal Musculoskeletal: Reports systems reviewed and no addt'l complaints, except as documented, back pain and other Details: Back pain overall tolerable using OTC analgesics PRN Integumentary Integumentary: Reports systems reviewed and no addt'l complaints, except as documented and dry skin; Denies alopecia or rash Neurologic Neurologic: Reports systems reviewed and no addt'l complaints, except as documented; Denies focal weakness, headache(s) or paresthesias Psychiatric Psychiatric: Reports systems reviewed and no addt'l complaints, except as documented Endocrine Endocrinology: Reports systems reviewed and no addt'l complaints, except as documented Hematologic/Lymphatic Hematologic/Lymphatic: Reports systems reviewed and no addt'l complaints, exceptas documented; Denies easy bleeding or lymphadenopathy Allergic/Immunologic Allergic/Immunologic: Reports systems reviewed and no addt'l complaints, except as documented Intake Vital Signs 10/05/24 11:40 11/09/24 11:20 11/09/24 11:22 Height 5 ft 5 in 5 ft 5 in 5 ft 5 in Weight: 55.055 kg BMI 20.2 BP 117/75 Blood Pressure Location Rt brachial Position Sitting Respiration 18 Pulse 66 Pulse Source Monitor Temp 98.5 F Temperature Source Temporal Artery Pulse Oximetry (%) 100 Oxygen Delivery Method room air Intake Accompanied by: Daughter Is patient in pain?: No Allergies oxycodone (From Percocet) Allergy (Verified 11/09/24 11:20) Vomiting Medications ?Medication ?Instructions ?Recorded ?Confirmed ?Type ondansetron 8 mg disintegrating 8 mg PO Q8H PRN nausea and 06/10/22 11/09/24 Rx tablet vomiting #30 tabs prochlorperazine maleate 10 mg 10 mg PO Q6H PRN nausea and 01/21/23 11/09/24 Rx tablet vomiting #30 tabs MAGIC MOUTH WASH (BMX) 180 mL 10 ml PO .4h PRN pain #1 80 mL 01/18/24 11/09/24 Rx suspension potassium chloride 20 mEq 20 meq PO TID #90 tabs 06/0611/09/24 Rx tablet,extended release ibuprofen 600 mg tablet 600 mg PO Q6H PRN PRN pain # 20 08/18/24 11/09/24 Rx TABLETS promethazine 25 mg rectal 25 mg IN Q6H PRN nausea and 08/18/24 11/09/24 Rx suppository vomiting #6 ea tramadol 50 mg tablet 50 mg PO Q6H PRN pain #15 ta bs 08/18/24 11/09/24 Rx Central Venous Access Central Venous Access: Yes Port/PICC: Port Laboratory Tests 12/08/21 12/29/21 01/22/22 06:25 15:30 15:38 CA 27-29 16.6 15.3 25.7 02/16/22 03/26/22 04/16/22 15:30 15:25 15:22 CA 27-29 21.9 39.3 H 48.0 H 05/19/22 06/11/22 07/02/22 15:15 11: 13:29 CA 27-29 45.9 H 48.4 H 51.0 H 07/23/22 08/13/22 09/03/22 13:20 13:28 13:30 CA 27-29 52.4 H 49.1 H 51.9 H 09/24/22 12/10/22 12/31/22 13:30 13:25 11:15 CA 27-29 39.3 H 34.8 43.8 H 01/21/23 03/04/23 04/15/23 13:05 13:40 13:29 CA 27-29 43.7 H 38.3 44.0 H 06/17/23 07/29/23 08/19/23 13:05 12:35 12:32 CA 27-29 49.6 H 54.9 H 52.5 H 09/30/23 11/11/23 01/10/24 12:40 10:00 14:57 CA 27-29 61.7 H 78.7 H 79.1 H 02/07/24 03/06/24 04/03/24 13:56 14:42 14:49 CA 27-29 85.7 H 71.4 H 72.5 H 05/03/24 05/29/24 06/26/24 07:58 14:20 14:38 CA 27-29 75.9 H 105.1 H 107.6 H 07/24/24 09/07/24 10/19/24 14:45 08:21 09:23 CA 27-29 121.8 H 331.8 H 303.8 H Exam Physical Exam Narrative ECOG 1 Const alert and oriented x3 General Appearance: cooperative, comfortable and well kempt Coding Level of Care Code Off vis,est,level 4 Exam Problem Focused Diagnoses Malignant neoplasm of overlapping sites of left breast in female, estrogen receptor positive C50.812; Z17.0 Liver metastases C78.7 Bone metastases C79.51 Carcinoma of left breast metastatic to axillary lymph node C50.912; C77.3 Laterality: left Malignant neoplasm of right kidney, except renal pelvis C64.1 Anemia due to antineoplastic chemotherapy D64.81; T45.1X5A Anemia type: other cause Other causes of anemia: antineoplastic chemotherapy Iron deficiency anemia due to chronic blood loss D50.0 Assessment and Plan Assessment and Plan (1) Malignant neoplasm of overlapping sites of left breast in female, estrogen receptor positive: Status: Chronic (2) Liver metastases: Status: Chronic (3) Bone metastases: Status: Chronic (4) Breast cancer metastasized to axillary lymph node: Status: Chronic Qualifiers: Laterality: left Qualified Code(s): C50.912 - Malignant neoplasm of unspecified site of left female breast; C77.3 - Secondary and unspecified 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 (5) Malignant neoplasm of right kidney, except renal pelvis: Status: Chronic (6) Anemia: Status: Chronic Qualifiers: Anemia type: other cause Other causes of anemia: antineoplastic chemotherapy Qualified Code(s): D64.81 - Anemia due to antineoplastic chemotherapy; T45.1X5A - Adverse effect of antineoplastic and immunosuppressive drugs, initial encounter (7) Iron deficiency anemia due to chronic blood loss: Status: Chronic Plan 54-year-old female with #1- 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 Patient is status post chemotherapy?(Adriamycin Cytoxan followed by Taxol 2015),?hormonal therapy (2015?2018)?and systemic chemotherapy with?capecitabine March 2019-April 2022.? ? She has been on bone supportive therapy with Zometa every 3 months and received palliative radiation to the right seventh ribin May 2018. She tolerated capecitabine with main toxicities experienced being GI (nausea, diarrhea, hypokalemia) and skin (palmar plantar erythrodysesthesia). An upward trend in tumor marker CA 27-29 noted March 2022 continued and progressive disease in the liver confirmed by imaging in April 2022. Started systemic therapy with TDX-d (Enhertu: Anti-HER2;?Antineoplastic Agent, Antibody Drug Conjugate;) [?N Engl J Med. 2020;382(7):610. Ep2018Apr 26.?} June 11, 2022, Tolerated with no grade 3 or 4 toxicities and remained in a stable partial remission of her disease until October 2023 when she had evidence of disease progression (slowly rising marker, relapsing lesion in the liver on CT). 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 Based on the findings from next generation sequence of November 2023 she started further hormonal therapy with Faslodex capivasertib end of November 2023, due to skin reaction and mucositis capivasertib dose was reduced to 320 mg twice daily 4 days on then 3 days rest and has tolerated treatment with no recurrent toxicities. Imaging by CT scan April 2024 show no measurable recurrent disease in the chest and liver. Subtle asymptomatic changes on the bone scan of April 2024 may represent early asymptomatic progression of the disease. She remained clinically stable and her marker is hovering in the 70s range. Therefore, she continued systemic treatment with Faslodex and capivasertib. However, follow-up imaging July 2024 showed definite progression in the liver and bones. Hormonal therapy was discontinued. August 2024 she was switched to Trodelvy (Sacituzumab, govitecan) Chronic comorbid conditions: History of right kidney cancer clear-cell status post right partial nephrectomy February 2017. Plan:?Based on NCCN guidelines and up-to-date review of treatment of HR positive HER2/adry low hormone refractory metastatic breast cancer: 1-start on September 07, 2024 standard treatment with Trodelvy (Sacituzumab govitecan); with supportive treatment including growth factor. 2-Continue bone supportive therapy with Zometa every 12 weeks. 4-Elective imaging with CT chest abdomen and pelvis and bone scan every 3 months; next to schedule in the last week of November 2024 4-anemia of cancer and chemotherapy plus iron deficiency improved following IV iron. 5-tumor marker with every cycle. Patient was seen with family.? Impression and recommendations as above outlined discussed. November 09, 2024 visit was via telehealth video Olivia Castillo MD Bundle Cutter, [facility] Divisions of Medical Oncology & Hematology Department of Internal Medicine [place] [id number] This note was generated using a voice recognition system software. Although it was reviewed by the author prior to finalization, it may still contain incorrect words, spelling, and punctuation that were not noted when reviewing prior to saving. If a clinically significant typo or inaccurately typed phrase is noted, please notify the author. 11/09/24 1139 <Electronically signed by Olivia humphreys MD> Date _ Olivia Castillo MD Cosigner Signature: Date (if applicable) CC: ~ [employer] Work Phone: [phone]) 996-631106-05-2025 Evaluation note* Diagnosis Onset Date Resolution Status Admit Date Anemia chronic October 19, 2024 9:13am Bone metastases chronic October 19, 2024 9:13am Breast cancer metastasized t o axillary lymph node chronic October 19 9:13am Iron deficiency anemia due t o chronic blood loss chronic October 19 9:13am Liver metastases chronic October 9:13am Malignant neoplasm of overlapping sites of left breast in female, estrogen chronic October 19, 2024 9:13am Malignant neoplasm of right kidney, except renal pelvis chronic October 19, 2024 9:13am Anemia chronic October 26 9:44am Bone metastases chronic October 9:44am Breast cancer metastasized t o axillary lymph node chronic October 26 9:44am Iron deficiency anemia due t o chronic blood loss chronic October 26 9:44am Liver metastases chronic October 9:44am Malignant neoplasm of overlapping sites of left breast in female, estrogen chronic October 26, 2024 9:44am Malignant neoplasm of right kidney, except renal pelvis chronic October 26, 2024 9:44am Anemia chronic November 09 10:37am Bone metastases chronic October 10:37am Breast cancer metastasized t o axillary lymph node chronic November 09 10:37am Iron deficiency anemia due t o chronic blood loss chronic November 09 10:37am Liver metastases chronic October 10:37am Malignant neoplasm of overlapping sites of left breast in female, estrogen chronic November 09, 2024 10:37am Malignant neoplasm of right kidney, except renal pelvis chronic November 09, 2024 10:37am Anemia chronic November 16, 2024 9:55am Bone metastases chronic November 16, 2024 9:55am Breast cancer metastasized t o axillary lymph node chronic November 16 9:55am Iron deficiency anemia due t o chronic blood loss chronic November 16 9:55am Liver metastases chronic November 9:55am Malignant neoplasm of overlapping sites of left breast in female, estrogen chronic November 16, 2024 9:55am Malignant neoplasm of right kidney, except renal pelvis chronic November 16, 2024 9:55am Anemia chronic November 21, 2024 10:08am Bone metastases chronic November 21, 2024 10:08am Breast cancer metastasized t o axillary lymph node chronic November 21 10:08am Iron deficiency anemia due t o chronic blood loss chronic November 21 10:08am Liver metastases chronic November 10:08am Malignant neoplasm of overlapping sites of left breast in female, estrogen chronic November 21, 2024 10:08am Malignant neoplasm of right kidney, except renal pelvis chronic November 21, 2024 10:08am Encounter for chemotherapy management acute December 21, 2024 7:26am Anemia chronic December 21 7:26am Bone metastases chronic December 7:26am Breast cancer metastasized t o axillary lymph node chronic December 21, 2024 7:26am Liver metastases chronic December 212024 7:26am Malignant neoplasm of overlapping sites of left breast in female, estrogen chronic Augus 2024 7:26am Malignant neoplasm of right kidney, except renal pelvis chronic 2024 7:26am Anemia chronic January 11, 12:19pm Bone metastases chronic January 112024 12:19pm Breast cancer metastasized t o axillary lymph node chronic January 11, 2025 12:19pm Iron deficiency anemia due t o chronic blood loss chronic January 11, 2025 12:19pm Liver metastases chronic December 162024 12:19pm Malignant neoplasm of overlapping sites of left breast in female, estrogen chronic Augus t 2024 12:19pm Malignant neoplasm of right kidney, except renal pelvis chronic Augu st 2024 12:19pm Anemia chronic January 12:23pm Bone metastases chronic February 01, 2025 12:23pm Breast cancer metastasized t o axillary lymph node chronic February 012024 12:23pm Iron deficiency anemia due t o chronic blood loss chronic January 12:23pm Liver metastases chronic Septembe r 2024 12:23pm Malignant neoplasm of overlapping sites of left breast in female, estrogen chronic Septe mber 2024 12:23pm Malignant neoplasm of right kidney, except renal pelvis chronic Sept ember 2024 12:23pm [facility] Work Phone: [phone] 438-913605-01-2025 Evaluation note* Diagnosis Onset Date Resolution Status Admit Date Anemia chronic September 14, 2024 10:22am Bone metastases chronic September 14, 2024 10:22am Breast cancer metastasized t o axillary lymph node chronic September 14 10:22am Liver metastases chronic September 14, 2024 10:22am Malignant neoplasm of overlapping sites of left breast in female, estrogen chronic September 142024 10:22am Malignant neoplasm of right kidney, except renal pelvis chronic September 14, 2024 10:22am Central line complication acute September 28, 2024 10:34am Anemia chronic September 28, 2024 10:34am Bone metastases chronic September 28, 2024 10:34am Breast cancer metastasized t o axillary lymph node chronic September 28 10:34am Liver metastases chronic September 10:34am Malignant neoplasm of overlapping sites of left breast in female, estrogen chronic September 142024 10:34am Malignant neoplasm of right kidney, except renal pelvis chronic September 28, 2024 10:34am Anemia chronic October 05, 2024 10:25am Bone metastases chronic October 05, 2024 10:25am Breast cancer metastasized t o axillary lymph node chronic October 05 10:25am Iron deficiency anemia due t o chronic blood loss chronic October 05 10:25am Liver metastases chronic September 10:25am Malignant neoplasm of overlapping sites of left breast in female, estrogen chronic September 152024 10:25am Malignant neoplasm of right kidney, except renal pelvis chronic October 05, 2024 10:25am Anemia chronic October 19, 2024 9:13am Bone metastases chronic October 19, 2024 9:13am Breast cancer metastasized t o axillary lymph node chronic October 19 9:13am Iron deficiency anemia due t o chronic blood loss chronic October 19 9:13am Liver metastases chronic October 9:13am Malignant neoplasm of overlapping sites of left breast in female, estrogen chronic October 19, 2024 9:13am Malignant neoplasm of right kidney, except renal pelvis chronic October 19, 2024 9:13am Anemia chronic October 26 9:44am Bone metastases chronic October 9:44am Breast cancer metastasized t o axillary lymph node chronic October 26 9:44am Iron deficiency anemia due t o chronic blood loss chronic October 26 9:44am Liver metastases chronic October 9:44am Malignant neoplasm of overlapping sites of left breast in female, estrogen chronic October 26, 2024 9:44am Malignant neoplasm of right kidney, except renal pelvis chronic October 26, 2024 9:44am Anemia chronic November 09 10:37am Bone metastases chronic October 10:37am Breast cancer metastasized t o axillary lymph node chronic November 09 10:37am Iron deficiency anemia due t o chronic blood loss chronic November 09 10:37am Liver metastases chronic October 10:37am Malignant neoplasm of overlapping sites of left breast in female, estrogen chronic November 09, 2024 10:37am Malignant neoplasm of right kidney, except renal pelvis chronic November 09, 2024 10:37am Anemia chronic November 16, 2024 9:55am Bone metastases chronic November 16, 2024 9:55am Breast cancer metastasized t o axillary lymph node chronic November 16 9:55am Iron deficiency anemia due t o chronic blood loss chronic November 16 9:55am Liver metastases chronic November 9:55am Malignant neoplasm of overlapping sites of left breast in female, estrogen chronic November 16, 2024 9:55am Malignant neoplasm of right kidney, except renal pelvis November 16, 2024 9:55am Anemia chronic November 21, 2024 10:08am Bone metastases chronic November 21, 2024 10:08am Breast cancer metastasized t o axillary lymph node chronic November 21 10:08am Iron deficiency anemia due t o chronic blood loss chronic November 21 10:08am Liver metastases chronic November 10:08am Malignant neoplasm of overlapping sites of left breast in female, estrogen chronic November 21, 2024 10:08am Malignant neoplasm of right kidney, except renal pelvis chronic November 21, 2024 10:08am Encounter for chemotherapy management acute December 21, 2024 7:26am Anemia chronic December 21 7:26am Bone metastases chronic December 7:26am Breast cancer metastasized t o axillary lymph node chronic December 21, 2024 7:26am Liver metastases chronic December 212024 7:26am Malignant neoplasm of overlapping sites of left breast in female, estrogen chronic Aug2024 7:26am Malignant neoplasm of right kidney, except renal pelvis chronic 2024 7:26am Anemia chronic January 11, 2 025 12:19pm Bone metastases chronic January 112024 12:19pm Breast cancer metastasized t o axillary lymph node chronic January 11, 2025 12:19pm Iron deficiency anemia due t o chronic blood loss chronic January 11, 2025 12:19pm Liver metastases chronic December 162024 12:19pm Malignant neoplasm of overlapping sites of left breast in female, estrogen chronic Aug2024 12:19pm Malignant neoplasm of right kidney, except renal pelvis chronic 2024 12:19pm [employer] Work Phone: [phone] [id number] Evaluation note* Diagnosis Onset Date Resolution Status Admit Date Anemia chronic September 07 8:10am Bone metastases chronic August 8:10am Breast cancer metastasized t o axillary lymph node chronic September 07, 2024 8:10am Iron deficiency anemia due t o chronic blood loss chronic September 07, 2 025 8:10am Liver metastases chronic September 072024 8:10am Malignant neoplasm of overlapping sites of left breast in female, estrogen chronic September 07, 2024 8:10am Malignant neoplasm of right kidney, except renal pelvis chronic Apri l 2024 8:10am Anemia chronic September 14, 2024 10:22am Bone metastases chronic September 14, 2024 10:22am Breast cancer metastasized t o axillary lymph node chronic September 14 10:22am Liver metastases chronic September 14, 2024 10:22am Malignant neoplasm of overlapping sites of left breast in female, estrogen chronic September 142024 10:22am Malignant neoplasm of right kidney, except renal pelvis chronic September 14, 2024 10:22am Central line complication acute September 28, 2024 10:34am Anemia chronic September 28, 2024 10:34am Bone metastases chronic September 28, 2024 10:34am Breast cancer metastasized t o axillary lymph node chronic September 28 10:34am Liver metastases chronic September 10:34am Malignant neoplasm of overlapping sites of left breast in female, estrogen chronic September 142024 10:34am Malignant neoplasm of right kidney, except renal pelvis chronic September 28, 2024 10:34am Anemia chronic October 05, 2024 10:25am Bone metastases chronic October 05, 2024 10:25am Breast cancer metastasized t o axillary lymph node chronic October 05 10:25am Iron deficiency anemia due t o chronic blood loss chronic October 05 10:25am Liver metastases chronic September 10:25am Malignant neoplasm of overlapping sites of left breast in female, estrogen chronic September 152024 10:25am Malignant neoplasm of right kidney, except renal pelvis chronic October 05, 2024 10:25am Anemia chronic October 19, 2024 9:13am Bone metastases chronic October 19, 2024 9:13am Breast cancer metastasized t o axillary lymph node chronic October 19 9:13am Iron deficiency anemia due t o chronic blood loss chronic October 19 9:13am Liver metastases chronic October 9:13am Malignant neoplasm of overlapping sites of left breast in female, estrogen chronic October 19, 2024 9:13am Malignant neoplasm of right kidney, except renal pelvis chronic October 19, 2024 9:13am Anemia chronic October 26 9:44am Bone metastases chronic October 9:44am Breast cancer metastasized t o axillary lymph node chronic October 26 9:44am Iron deficiency anemia due t o chronic blood loss chronic October 26 9:44am Liver metastases chronic October 9:44am Malignant neoplasm of overlapping sites of left breast in female, estrogen chronic October 26, 2024 9:44am Malignant neoplasm of right kidney, except renal pelvis chronic October 26, 2024 9:44am Anemia chronic November 09 10:37am Bone metastases chronic October 10:37am Breast cancer metastasized t o axillary lymph node chronic November 09 10:37am Iron deficiency anemia due t o chronic blood loss chronic November 09 10:37am Liver metastases chronic October 10:37am Malignant neoplasm of overlapping sites of left breast in female, estrogen chronic November 09, 2024 10:37am Malignant neoplasm of right kidney, except renal pelvis chronic November 09, 2024 10:37am Anemia chronic November 16, 2024 9:55am Bone metastases chronic November 16, 2024 9:55am Breast cancer metastasized t o axillary lymph node chronic November 16 9:55am Iron deficiency anemia due t o chronic blood loss chronic November 16 9:55am Liver metastases chronic November 9:55am Malignant neoplasm of overlapping sites of left breast in female, estrogen chronic November 16, 2024 9:55am Malignant neoplasm of right kidney, except renal pelvis chronic November 16, 2024 9:55am Anemia chronic November 21, 2024 10:08am Bone metastases chronic November 21, 2024 10:08am Breast cancer metastasized t o axillary lymph node chronic November 21 10:08am Iron deficiency anemia due t o chronic blood loss chronic November 21 10:08am Liver metastases chronic November 10:08am Malignant neoplasm of overlapping sites of left breast in female, estrogen chronic November 21, 2024 10:08am Malignant neoplasm of right kidney, except renal pelvis chronic November 21, 2024 10:08am [facility] Work Phone: 1(872) 201-410804-04-2025 Radiology Diagnostic study note [facility] Imaging Services [address] [place], [place] [id number] CTA Chest W/WO Contrast MR#: [id number] Acct: [id number] Name: GRACIELA HAYWOOD Richy Rep #: [id number] : 1970 F 54 From: Kike Gonzáles MD PCP: Dr. Philly Garcia MD Status: REG E R Study:CTA Chest W/WO Contrast Date of Exam: 08/18/24 Exam# [id number] Ordering Dr: Olive Avila DO PROCEDURE: CTA CHEST W/WO CONTRAST 08/18/2024 REASON FOR EXAM: LEFT PLEURITIC PAIN, CONCERN FOR PE TECHNIQUE: CTA imaging of the chest, abdomen and pelvis without and with intravenous contrast. Coronal and Sagittal reconstruction series were provided. 3D, 3D post processing, 3D reconstructions, Maximum intensity projection (MIPs) Volume rendering and Shaded surface rendering was provided. CONTRAST: 93 cc Isovue 370 IV One or more dose reduction techniques were used (e.g., Automated exposure control, adjustment of the mA and/or kV according to patient size, use of iterative reconstruction technique). RADIATION DOSE SUMMARY: CTDlvol: 6.59 mGy DLP: 238.55 mGycm COMPARISON: 08/07/2024 FINDINGS: Right port No evidence of filling defect to suggest pulmonary embolism. Thoracic aorta appears within limits. No pericardial or pleural effusion. Bilateral apparent mastectomies with left more than right chest surgical clips. Shotty appearing mediastinal nodes not significantly changed. The central airways appear patent. The lungs appear clear. No pneumothorax. T8 compression deformity again noted. A few rib and T1 vertebral body osseous lesion and small sclerotic focus gladiolus of the sternum again seen. No new pathologic fracture identified. Left shoulder degenerative changes againnoted. Please see CT of the abdomen and pelvis for abdominal and lumbar findings. CT/CTA Chest W/WO Contrast IMPRESSION: No evidence of filling defect to suggest pulmonary embolism. Right port, mastectomies and osseous metastatic disease again noted. Reading Location: [id number] CC: Dr. Sheila Avila DO; Dr. Philly Garcia MD ~ Canoe Maker: Signed [facility]04-04-2025 Radiology Diagnostic study note [facility] Imaging Services [address] [place], [place] [address] Abdomen/Pelvis W IV Cont ONLY MR#: [id number] Acct: [id number] Name: GRACIELA HAYWOOD Rep #: [id number] : 1970 F 54 From: Christina Palmer MD PCP: Dr. Philly Garcia MD Status: REG E R Study:Abdomen/Pelvis W IV Cont ONLY Date of E xam: 08/18/24 Exam# [id number] Ordering Dr: Olive Avila DO PROCEDURE: ABDOMEN/PELVIS W IV CONT ONLY 08/18/2024 REASON FOR EXAM: LUQ ABD PAIN, HX METASTIC CANCER TECHNIQUE: Abdomen and pelvis CT with intravenous contrast. Coronal and Sagittal reconstruction series were provided. PATIENT PREPARATION: Per protocol ORAL CONTRAST TYPE: None. AMOUNT: mL CONTRAST: Omnipaque 350 VOLUME: 100 mL Gauge IV One or more dose reduction techniques were used (e.g., Automated exposure control, adjustment of the mA and/or kV according to patient size, use of iterative reconstruction technique. COMPARISON: CT chest, abdomen and pelvis 04/12/2024 and 08/07/2024 FINDINGS: Lung bases: Unremarkable. Liver: Homogeneous attenuation. Compared with the CT from 2023, there is interval enlargement of a hypoenhancing hepatic dome mass, now 3.4 x 3.7 cm, previously 3.1 x 2.5 cm. Unchanged 13 mm cystic lesion left hepatic lobe subcapsular region. A few scattered subcentimeter low-attenuation lesions are too small to characterize. Gallbladder: No gallstones or wall thickening. Spleen: Normal size. Pancreas: Normal size without evidence of mass surrounding inflammation or ductal dilation. Adrenals: Unremarkable Kidneys: Bilateral simple cysts. No suspicious mass or enhancement. No renal calculi. Slightly moreprominent left hydronephrosis. No visualized calculi. Bladder: Urinary bladder is unremarkable. Reproductive Organs: No pelvic mass. Bowel: Stomach is unremarkable. No bowel dilation. Rectosigmoid wall thickening, submucosal hyperemia with surrounding soft tissue stranding, concerning for infectious proctocolitis. Moderate colonic stool. Appendix is not visualized Appendix: The appendix is not identified. There is no inflammatory process identified in the right lower quadrant to suggest appendicitis. Lymph nodes: No suspicious lymph node enlargement. Vasculature: The abdominal aorta and IVC are normal. Peritoneum / Retroperitoneum: No ascites. No pneumoperitoneum. Bones: Diffuse osseous sclerosis, compatible with osseous metastasis. Mild L2 compression deformity. CT/Abdomen/Pelvis W IV Cont ONLY IMPRESSION: 1. Interval enlargement hepatic dome hypoenhancing mass, mild concerning for worsening metastasis. 2. Rectosigmoid wall thickening, submucosal hyperemia and soft tissue stranding,concerning for acute infectious proctocolitis. 3. Stable diffuse osseous metastasis [facility]: Dr. Sheila Avila DO; Dr. Philly Garcia MD ~ Canoe Maker: Signed [facility]03-30-2025 Nuclear medicine Diagnostic study note [facility] Imaging Services [address] [place], [place] [id number] Bone Scan Whole Body MR#: [id number] Acct: [id number] Name: GRACIELA HAYWOOD Rep #: [id number] : 1970 F 54 From: Janina Steiner MD PCP: Dr. Philly Garcia MD Status: REG Olive MEJIAS Study:Bone Scan Whole Body Date of Exam: 08/10/24 Exam# [id number] Ordering Dr: Olivia Castillo MD PROCEDURE: BONE SCAN WHOLE BODY 08/10/2024 REASON FOR EXAM: F/U METS BREAST CANCER Low back pain. Right hip pain. TECHNIQUE: Whole-body bone scan with anterior and posterior views. RADIOPHARMACEUTICAL: 26.2 mCi Technetium-99m Methylene Diphosphonate intravenously. COMPARISON: CORRELATION WITH EXISTING RELEVANT IMAGING STUDIES (i.e. x-ray, MRI, CT, etc.). FINDINGS: Bones: Increased osseous uptake is redemonstrated in the left proximal humerus, left sacroiliac joint and medial left ilium, 1st lumbar vertebra, and right superior acetabulum. Areas of increased osseous uptake are noted in the right 1st through 6th ribs, bilateral acromioclavicular joints, and the C7 vertebra. Kidneys: Normal-appearing uptake in the bilateral kidneys. NM/Bone Scan Whole Body IMPRESSION: Areas of increased osseous uptake are redemonstrated consistent with osseous metastatic disease. Reading Location: [facility] CC: Dr. Philly Gacria MD; Dr. Olivia Castillo MD ~ Canoe Maker: Signed [facility]03-26-2025 Evaluation note* Diagnosis Onset Date Resolution Status Admit Date Encounter for education acute [facility] 2024 3:33pm Anemia chronic August 09 3:33pm Bone metastases chronic July 3:33pm Breast cancer metastasized t o axillary lymph node chronic August 09, 2024 3:33pm Iron deficiency anemia due t o chronic blood loss chronic August 09, 2 025 3:33pm Liver metastases chronic August 092024 3:33pm Malignant neoplasm of overlapping sites of left breast in female, estrogen chronic August 09, 2024 3:33pm Malignant neoplasm of right kidney, except renal pelvis chronic Andrei 2024 3:33pm Anemia chronic September 07 8:10am Bone metastases chronic August 8:10am Breast cancer metastasized t o axillary lymph node chronic September 07, 2024 8:10am Iron deficiency anemia due t o chronic blood loss chronic September 07, 2 025 8:10am Liver metastases chronic September 072024 8:10am Malignant neoplasm of overlapping sites of left breast in female, estrogen chronic September 07, 2024 8:10am Malignant neoplasm of right kidney, except renal pelvis chronic Apri l 2024 8:10am Anemia chronic September 14, 2024 10:22am Bone metastases chronic September 14, 2024 10:22am Breast cancer metastasized t o axillary lymph node chronic September 14 10:22am Liver metastases chronic September 14, 2024 10:22am Malignant neoplasm of overlapping sites of left breast in female, estrogen chronic September 142024 10:22am Malignant neoplasm of right kidney, except renal pelvis chronic September 14, 2024 10:22am Central line complication acute September 28, 2024 10:34am Anemia chronic September 28, 2024 10:34am Bone metastases chronic September 28, 2024 10:34am Breast cancer metastasized t o axillary lymph node chronic September 28 10:34am Liver metastases chronic September 10:34am Malignant neoplasm of overlapping sites of left breast in female, estrogen chronic September 142024 10:34am Malignant neoplasm of right kidney, except renal pelvis chronic September 28, 2024 10:34am Anemia chronic October 05, 2024 10:25am Bone metastases chronic October 05, 2024 10:25am Breast cancer metastasized t o axillary lymph node chronic October 05 10:25am Iron deficiency anemia due t o chronic blood loss chronic October 05 10:25am Liver metastases chronic September 10:25am Malignant neoplasm of overlapping sites of left breast in female, estrogen chronic September 152024 10:25am Malignant neoplasm of right kidney, except renal pelvis chronic October 05, 2024 10:25am Anemia chronic October 19, 2024 9:13am Bone metastases chronic October 19, 2024 9:13am Breast cancer metastasized t o axillary lymph node chronic October 19 9:13am Iron deficiency anemia due t o chronic blood loss chronic October 19 9:13am Liver metastases chronic October 9:13am Malignant neoplasm of overlapping sites of left breast in female, estrogen chronic October 19, 2024 9:13am Malignant neoplasm of right kidney, except renal pelvis chronic October 19, 2024 9:13am Anemia chronic October 26 9:44am Bone metastases chronic October 9:44am Breast cancer metastasized t o axillary lymph node chronic October 26 9:44am Iron deficiency anemia due t o chronic blood loss chronic October 26 9:44am Liver metastases chronic October 9:44am Malignant neoplasm of overlapping sites of left breast in female, estrogen chronic October 26, 2024 9:44am Malignant neoplasm of right kidney, except renal pelvis chronic October 26, 2024 9:44am Anemia chronic November 09 10:37am Bone metastases chronic October 10:37am Breast cancer metastasized t o axillary lymph node chronic November 09, 025 10:37am Iron deficiency anemia due t o chronic blood loss chronic November 09 10:37am Liver metastases chronic October 10:37am Malignant neoplasm of overlapping sites of left breast in female, estrogen chronic November 09, 2024 10:37am Malignant neoplasm of right kidney, except renal pelvis chronic November 09, 2024 10:37am Anemia chronic November 16, 2024 9:55am Bone metastases chronic November 16, 2024 9:55am Breast cancer metastasized t o axillary lymph node chronic November 16 9:55am Iron deficiency anemia due t o chronic blood loss chronic November 16 9:55am Liver metastases chronic November 9:55am Malignant neoplasm of overlapping sites of left breast in female, estrogen chronic November 16, 2024 9:55am Malignant neoplasm of right kidney, except renal pelvis chronic November 16, 2024 9:55am Anemia chronic November 21, 2024 10:08am Bone metastases chronic November 21, 2024 10:08am Breast cancer metastasized t o axillary lymph node chronic November 21 10:08am Iron deficiency anemia due t o chronic blood loss chronic November 21 10:08am Liver metastases chronic November 10:08am Malignant neoplasm of overlapping sites of left breast in female, estrogen chronic November 21, 2024 10:08am Malignant neoplasm of right kidney, except renal pelvis chronic November 21, 2024 10:08am [facility] Work Phone: 1([phone]) 315-111703-25-2025 Radiology Diagnostic study note [facility] Imaging Services [address] [place] [address] CT Chest, Abd, Pel w/Contrast MR#: [id number] Acct: [id number] Name: GRACIELA HAYWOOD Rep #: [id number] : 1970 F 54 From: Nahed Shetty MD PCP: Dr. Philly Garcia MD Status: REG C Study:CT Chest, Abd, Pel w/Contrast Date of E xam: 08/07/24 Exam# [id number] Ordering Dr: Olivia Castillo MD PROCEDURE: CT CHEST, ABD, PEL W/CONTRAST 08/07/2024 REASON FOR EXAM: 54-year-old female, history of breast cancer, previous bilateral mastectomy, chemo and radiation treatment, currently on oral chemotherapy, imaging follow-up. TECHNIQUE: Chest, abdomen and pelvis CT with intravenous contrast. Coronal and Sagittal reconstruction series were provided. One or more dose reduction techniques were used (e.g., Automated exposure control, adjustment of the mA and/or kV according to patient size, use of iterative reconstruction technique. PATIENT PREPARATION: Per protocol ORAL CONTRAST TYPE: None. CONTRAST: Isovue-300 VOLUME: 100mL RADIATION DOSE SUMMARY: CTDlvol: 20 mGy DLP: 547 mGycm COMPARISON: CT chest, abdomen and pelvis 04/14/2024. FINDINGS: CT CHEST: Hardware: Right chest wall port with tip terminating in the right atrium. Priorbilateral mastectomyand left axillary node dissection with surgical clips along the bilateral chest wall. Lymph nodes: Prior left axillary node dissection. No right axillary, mediastinal or hilar lymphadenopathy. Heart and Vasculature: The heart is normal in size without pericardial effusion. No coronary arteryor thoracic aortic calcifications. The great vessels are normal in caliber. Lungs and Airways: The central airways are patent. No suspicious pulmonary mass, pleural effusion or pneumothorax. Bones: Stable cystic change of the left humeral head and within the right posterior 7th rib. Stablecentral compression fracture deformity of the T8 vertebral body. CT ABDOMEN/PELVIS: Liver: The liver is normal in size with increased size of the heterogeneous hepatic dome mass, now measuring 3.5 x 2.9 cm (series 3, image 11), previously 2.4 x 2.1 cm when measured in a similar fashion. The main portal veins arepatent. No biliary ductal dilation. Gallbladder: No radiopaque stones within the gallbladder. Spleen: Unremarkable. Pancreas: Unremarkable. Adrenals: Unremarkable. Kidneys: Bilateral renal cysts. No hydronephrosis or nephrolithiasis. Bladder: Moderately distended and unremarkable. Reproductive Organs: Unremarkable uterus. The ovaries are surgically absent. Bowel: The bowel loops are normal in caliber. No ascites or pneumoperitoneum. No inflammatory mass in the expected region of the appendix. Lymph nodes: No suspicious lymphadenopathy. Vasculature: The abdominal aorta and IVC are normal. Bones: Continued sclerosis of the L2 vertebral body and SI joints, [id number]-right. Stable scattered pelvic bone islands and cystic change of the left femoral head. CT/CT Chest, Abd, Pel w/Contrast IMPRESSION: CT chest: 1. No evidence of thoracic metastatic disease. 2. Stable T8 vertebral body compression fracture deformity. CT abdomen pelvis: 1. Increased size of the hepatic dome mass, presumably hepatic metastatic disease. 2. Continued sclerosis of the L2 vertebral body and SI joints, likely secondary to chemotherapy regimen. If concern for osseous metastatic disease, bone scan could be obtained for further evaluation. 3. No additional new or enlarging abdominopelvic metastatic disease. Reading Location: [id number] CC: Dr. Philly Garcia MD; Dr. Olivia Castillo MD ~ Canoe Maker: Signed [facility]03-10-2025 Evaluation note* Diagnosis Onset Date Resolution Status Admit Date Anemia chronic July 24 2:22pm Bone metastases chronic July 2:22pm Breast cancer metastasized t o axillary lymph node chronic July 24, 2024 2:22pm Iron deficiency anemia due t o chronic blood loss chronic July 24, 2 025 2:22pm Liver metastases chronic July 242024 2:22pm Malignant neoplasm of overlapping sites of left breast in female, estrogen chronic July 24, 2024 2:22pm Malignant neoplasm of right kidney, except renal pelvis chronic Andrei h 2024 2:22pm Encounter for education acute [facility] 2024 3:33pm Anemia chronic August 09 3:33pm Bone metastases chronic July 3:33pm Breast cancer metastasized t o axillary lymph node chronic August 09, 2024 3:33pm Iron deficiency anemia due t o chronic blood loss chronic August 09, 2 025 3:33pm Liver metastases chronic August 092024 3:33pm Malignant neoplasm of overlapping sites of left breast in female, estrogen chronic August 09, 2024 3:33pm Malignant neoplasm of right kidney, except renal pelvis chronic Andrei h 2024 3:33pm Anemia chronic September 07 8:10am Bone metastases chronic August 8:10am Breast cancer metastasized t o axillary lymph node chronic September 07, 2024 8:10am Iron deficiency anemia due t o chronic blood loss chronic September 07, 2 025 8:10am Liver metastases chronic September 072024 8:10am Malignant neoplasm of overlapping sites of left breast in female, estrogen chronic September 07, 2024 8:10am Malignant neoplasm of right kidney, except renal pelvis chronic Apri l 2024 8:10am Anemia chronic September 14, 2024 10:22am Bone metastases chronic September 14, 2024 10:22am Breast cancer metastasized t o axillary lymph node chronic September 14 10:22am Liver metastases chronic September 14, 2024 10:22am Malignant neoplasm of overlapping sites of left breast in female, estrogen chronic September 142024 10:22am Malignant neoplasm of right kidney, except renal pelvis chronic September 14, 2024 10:22am Central line complication acute September 28, 2024 10:34am Anemia chronic September 28, 2024 10:34am Bone metastases chronic September 28, 2024 10:34am Breast cancer metastasized t o axillary lymph node chronic September 28 10:34am Liver metastases chronic September 10:34am Malignant neoplasm of overlapping sites of left breast in female, estrogen chronic September 142024 10:34am Malignant neoplasm of right kidney, except renal pelvis chronic September 28, 2024 10:34am Anemia chronic October 05, 2024 10:25am Bone metastases chronic October 05, 2024 10:25am Breast cancer metastasized t o axillary lymph node chronic October 05 10:25am Iron deficiency anemia due t o chronic blood loss chronic October 05 10:25am Liver metastases chronic September 10:25am Malignant neoplasm of overlapping sites of left breast in female, estrogen chronic September 152024 10:25am Malignant neoplasm of right kidney, except renal pelvis chronic October 05, 2024 10:25am Anemia chronic October 19, 2024 9:13am Bone metastases chronic October 19, 2024 9:13am Breast cancer metastasized t o axillary lymph node chronic October 19 9:13am Iron deficiency anemia due t o chronic blood loss chronic October 19 9:13am Liver metastases chronic October 9:13am Malignant neoplasm of overlapping sites of left breast in female, estrogen chronic October 19, 2024 9:13am Malignant neoplasm of right kidney, except renal pelvis chronic October 19, 2024 9:13am [facility] Work Phone: [phone] 560-141503-10-2025 Evaluation note* Diagnosis Onset Date Resolution Status Admit Date Anemia chronic July 24 2:22pm Bone metastases chronic July 2:22pm Breast cancer metastasized t o axillary lymph node chronic July 24, 2024 2:22pm Iron deficiency anemia due t o chronic blood loss chronic July 24, 2 025 2:22pm Liver metastases chronic July 242024 2:22pm Malignant neoplasm of overlapping sites of left breast in female, estrogen chronic July 24, 2024 2:22pm Malignant neoplasm of right kidney, except renal pelvis chronic 2024 2:22pm Encounter for education acute [facility] 2024 3:33pm Anemia chronic August 09 3:33pm Bone metastases chronic July 3:33pm Breast cancer metastasized t o axillary lymph node August 09, 2024 3:33pm Iron deficiency anemia due t o chronic blood loss chronic August 09, 2 025 3:33pm Liver metastases chronic August 092024 3:33pm Malignant neoplasm of overlapping sites of left breast in female, estrogen chronic August 09, 2024 3:33pm Malignant neoplasm of right kidney, except renal pelvis chronic Andrei 2024 3:33pm Anemia chronic September 07 8:10am Bone metastases chronic August 8:10am Breast cancer metastasized t o axillary lymph node chronic September 07, 2024 8:10am Iron deficiency anemia due t o chronic blood loss chronic September 07, 2 025 8:10am Liver metastases chronic September 072024 8:10am Malignant neoplasm of overlapping sites of left breast in female, estrogen chronic September 07, 2024 8:10am Malignant neoplasm of right kidney, except renal pelvis chronic Apri l 2024 8:10am Anemia chronic September 14, 2024 10:22am Bone metastases chronic September 14, 2024 10:22am Breast cancer metastasized t o axillary lymph node chronic September 14 10:22am Liver metastases chronic September 14, 2024 10:22am Malignant neoplasm of overlapping sites of left breast in female, estrogen chronic September 142024 10:22am Malignant neoplasm of right kidney, except renal pelvis chronic September 14, 2024 10:22am Central line complication acute September 28, 2024 10:34am Anemia chronic September 28, 2024 10:34am Bone metastases chronic September 28, 2024 10:34am Breast cancer metastasized t o axillary lymph node chronic September 28 10:34am Liver metastases chronic September 10:34am Malignant neoplasm of overlapping sites of left breast in female, estrogen chronic September 142024 10:34am Malignant neoplasm of right kidney, except renal pelvis chronic September 28, 2024 10:34am Anemia chronic October 05, 2024 10:25am Bone metastases chronic October 05, 2024 10:25am Breast cancer metastasized t o axillary lymph node chronic October 05 10:25am Iron deficiency anemia due t o chronic blood loss chronic October 05 10:25am Liver metastases chronic September 10:25am Malignant neoplasm of overlapping sites of left breast in female, estrogen chronic May 2 2nd, 2025 10:25am Malignant neoplasm of right kidney, except renal pelvis chronic October 05, 2024 10:25am Anemia chronic October 19, 2024 9:13am Bone metastases chronic October 19, 2024 9:13am Breast cancer metastasized t o axillary lymph node chronic October 19 9:13am Iron deficiency anemia due t o chronic blood loss chronic October 19 9:13am Liver metastases chronic October 9:13am Malignant neoplasm of overlapping sites of left breast in female, estrogen chronic October 19, 2024 9:13am Malignant neoplasm of right kidney, except renal pelvis chronic October 19, 2024 9:13am Anemia chronic October 26 9:44am Bone metastases chronic October 9:44am Breast cancer metastasized t o axillary lymph node chronic October 26, 9:44am Iron deficiency anemia due t o chronic blood loss chronic October 26 9:44am Liver metastases chronic October 9:44am Malignant neoplasm of overlapping sites of left breast in female, estrogen chronic October 26, 2024 9:44am Malignant neoplasm of right kidney, except renal pelvis chronic October 26, 2024 9:44am Anemia chronic November 09 10:37am Bone metastases chronic October 10:37am Breast cancer metastasized t o axillary lymph node chronic November 09, 025 10:37am Iron deficiency anemia due t o chronic blood loss chronic November 09 10:37am Liver metastases chronic October 10:37am Malignant neoplasm of overlapping sites of left breast in female, estrogen chronic November 09, 2024 10:37am Malignant neoplasm of right kidney, except renal pelvis chronic November 09, 2024 10:37am [facility] Work Phone: [phone]) 566-140803-10-2025 Evaluation note* Diagnosis Onset Date Resolution Status Admit Date Anemia chronic July 24 2:22pm Bone metastases chronic July 2:22pm Breast cancer metastasized t o axillary lymph node chronic July 24, 2024 2:22pm Iron deficiency anemia due t o chronic blood loss chronic July 24, 2 025 2:22pm Liver metastases chronic July 242024 2:22pm Malignant neoplasm of overlapping sites of left breast in female, estrogen chronic July 24, 2024 2:22pm Malignant neoplasm of right kidney, except renal pelvis chronic Andrei h 2024 2:22pm Encounter for education acute [facility] 2024 3:33pm Anemia chronic August 09 3:33pm Bone metastases chronic July 3:33pm Breast cancer metastasized t o axillary lymph node chronic August 09, 2024 3:33pm Iron deficiency anemia due t o chronic blood loss chronic August 09, 2 025 3:33pm Liver metastases chronic August 092024 3:33pm Malignant neoplasm of overlapping sites of left breast in female, estrogen chronic August 09, 2024 3:33pm Malignant neoplasm of right kidney, except renal pelvis chronic Andrei h 2024 3:33pm Anemia chronic September 07 8:10am Bone metastases chronic August 8:10am Breast cancer metastasized t o axillary lymph node chronic September 07, 2024 8:10am Iron deficiency anemia due t o chronic blood loss chronic September 07, 2 025 8:10am Liver metastases chronic September 072024 8:10am Malignant neoplasm of overlapping sites of left breast in female, estrogen chronic September 07, 2024 8:10am Malignant neoplasm of right kidney, except renal pelvis chronic Apri l 2024 8:10am Anemia chronic September 14, 2024 10:22am Bone metastases chronic September 14, 2024 10:22am Breast cancer metastasized t o axillary lymph node chronic September 14 10:22am Liver metastases chronic September 14, 2024 10:22am Malignant neoplasm of overlapping sites of left breast in female, estrogen chronic September 142024 10:22am Malignant neoplasm of right kidney, except renal pelvis chronic September 14, 2024 10:22am Central line complication acute September 28, 2024 10:34am Anemia chronic September 28, 2024 10:34am Bone metastases chronic September 28, 2024 10:34am Breast cancer metastasized t o axillary lymph node chronic September 28 10:34am Liver metastases chronic September 10:34am Malignant neoplasm of overlapping sites of left breast in female, estrogen chronic September 142024 10:34am Malignant neoplasm of right kidney, except renal pelvis chronic September 28, 2024 10:34am Anemia chronic October 05, 2024 10:25am Bone metastases chronic October 05, 2024 10:25am Breast cancer metastasized t o axillary lymph node chronic October 05 10:25am Iron deficiency anemia due t o chronic blood loss chronic October 05 10:25am Liver metastases chronic September 10:25am Malignant neoplasm of overlapping sites of left breast in female, estrogen chronic September 152024 10:25am Malignant neoplasm of right kidney, except renal pelvis chronic October 05, 2024 10:25am Anemia chronic October 19, 2024 9:13am Bone metastases chronic October 19, 2024 9:13am Breast cancer metastasized t o axillary lymph node chronic October 19 9:13am Iron deficiency anemia due t o chronic blood loss chronic October 19 9:13am Liver metastases chronic October 9:13am Malignant neoplasm of overlapping sites of left breast in female, estrogen chronic October 19, 2024 9:13am Malignant neoplasm of right kidney, except renal pelvis chronic October 19, 2024 9:13am Anemia chronic October 26 9:44am Bone metastases chronic October 9:44am Breast cancer metastasized t o axillary lymph node chronic October 26, 9:44am Iron deficiency anemia due t o chronic blood loss chronic October 26 9:44am Liver metastases chronic October 9:44am Malignant neoplasm of overlapping sites of left breast in female, estrogen chronic October 26, 2024 9:44am Malignant neoplasm of right kidney, except renal pelvis chronic October 26, 2024 9:44am Anemia chronic November 09 10:37am Bone metastases chronic October 10:37am Breast cancer metastasized t o axillary lymph node chronic November 09, 2 025 10:37am Iron deficiency anemia due t o chronic blood loss chronic November 09 10:37am Liver metastases chronic October 10:37am Malignant neoplasm of overlapping sites of left breast in female, estrogen chronic November 09, 2024 10:37am Malignant neoplasm of right kidney, except renal pelvis chronic November 09, 2024 10:37am Anemia chronic November 16, 2024 9:55am Bone metastases chronic November 16, 2024 9:55am Breast cancer metastasized t o axillary lymph node chronic November 16 9:55am Iron deficiency anemia due t o chronic blood loss chronic November 16 9:55am Liver metastases chronic November 9:55am Malignant neoplasm of overlapping sites of left breast in female, estrogen chronic November 16, 2024 9:55am Malignant neoplasm of right kidney, except renal pelvis November 16, 2024 9:55am Anemia chronic November 21, 2024 10:08am Bone metastases November 21, 2024 10:08am Breast cancer metastasized t o axillary lymph node chronic November 21 10:08am Iron deficiency anemia due t o chronic blood loss chronic November 21 10:08am Liver metastases chronic November 10:08am Malignant neoplasm of overlapping sites of left breast in female, estrogen chronic November 21, 2024 10:08am Malignant neoplasm of right kidney, except renal pelvis November 21, 2024 10:08am [facility] Work Phone: [phone]) 974-794802-10-2025 Evaluation note* Diagnosis Onset Date Resolution Status Admit Date Anemia chronic June 26, 2024 2:18pm Bone metastases chronic June 26, 2024 2:18pm Breast cancer metastasized t o axillary lymph node chronic June 2:18pm Iron deficiency anemia due t o chronic blood loss chronic June 2:18pm Liver metastases chronic June 26, 2024 2:18pm Malignant neoplasm of overlapping sites of left breast in female, estrogen chronic Febru [id number] 2:18pm Malignant neoplasm of right kidney, except renal pelvis chronic Febr uary 2024 2:18pm Anemia chronic July 24 2:22pm Bone metastases chronic July 2:22pm Breast cancer metastasized t o axillary lymph node chronic July 24, 2024 2:22pm Iron deficiency anemia due t o chronic blood loss chronic July 24, 2:22pm Liver metastases chronic July 242024 2:22pm Malignant neoplasm of overlapping sites of left breast in female, estrogen chronic July 24, 2024 2:22pm Malignant neoplasm of right kidney, except renal pelvis chronic Andrei h 2024 2:22pm Encounter for education acute [facility] 2024 3:33pm Anemia chronic August 09 3:33pm Bone metastases chronic July 3:33pm Breast cancer metastasized t o axillary lymph node chronic August 09, 2024 3:33pm Iron deficiency anemia due t o chronic blood loss chronic August 09, 2 025 3:33pm Liver metastases chronic August 092024 3:33pm Malignant neoplasm of overlapping sites of left breast in female, estrogen chronic August 09, 2024 3:33pm Malignant neoplasm of right kidney, except renal pelvis chronic Andrei 2024 3:33pm Anemia chronic September 07 8:10am Bone metastases chronic August 8:10am Breast cancer metastasized t o axillary lymph node chronic September 07, 2024 8:10am Iron deficiency anemia due t o chronic blood loss chronic September 07, 2 025 8:10am Liver metastases chronic September 072024 8:10am Malignant neoplasm of overlapping sites of left breast in female, estrogen chronic September 07, 2024 8:10am Malignant neoplasm of right kidney, except renal pelvis chronic Apri l 2024 8:10am Anemia chronic September 14, 2024 10:22am Bone metastases chronic September 14, 2024 10:22am Breast cancer metastasized t o axillary lymph node chronic September 14 10:22am Liver metastases chronic September 14, 2024 10:22am Malignant neoplasm of overlapping sites of left breast in female, estrogen chronic September 142024 10:22am Malignant neoplasm of right kidney, except renal pelvis chronic September 14, 2024 10:22am [facility] Work Phone: 1(864) 315-376802-10-2025 Evaluation note* Diagnosis Onset Date Resolution Status Admit Date Anemia chronic June 26, 2024 2:18pm Bone metastases chronic June 26, 2024 2:18pm Breast cancer metastasized t o axillary lymph node chronic June 2:18pm Iron deficiency anemia due t o chronic blood loss chronic June 2:18pm Liver metastases chronic June 26, 2024 2:18pm Malignant neoplasm of overlapping sites of left breast in female, estrogen chronic Febru [id number] 2:18pm Malignant neoplasm of right kidney, except renal pelvis chronic Febr uary 2024 2:18pm Anemia chronic July 24 2:22pm Bone metastases chronic July 2:22pm Breast cancer metastasized t o axillary lymph node chronic July 24, 2024 2:22pm Iron deficiency anemia due t o chronic blood loss chronic July 24, 2 025 2:22pm Liver metastases chronic July 242024 2:22pm Malignant neoplasm of overlapping sites of left breast in female, estrogen chronic July 24, 2024 2:22pm Malignant neoplasm of right kidney, except renal pelvis chronic Andrei h 2024 2:22pm Encounter for education acute [facility] 2024 3:33pm Anemia chronic August 09 3:33pm Bone metastases chronic July 3:33pm Breast cancer metastasized t o axillary lymph node chronic August 09, 2024 3:33pm Iron deficiency anemia due t o chronic blood loss chronic August 09, 025 3:33pm Liver metastases chronic August 092024 3:33pm Malignant neoplasm of overlapping sites of left breast in female, estrogen chronic August 09, 2024 3:33pm Malignant neoplasm of right kidney, except renal pelvis chronic Andrei h 2024 3:33pm Anemia chronic September 07 8:10am Bone metastases chronic August 8:10am Breast cancer metastasized t o axillary lymph node chronic September 07, 2024 8:10am Iron deficiency anemia due t o chronic blood loss chronic September 07, 2 025 8:10am Liver metastases chronic September 072024 8:10am Malignant neoplasm of overlapping sites of left breast in female, estrogen chronic September 07, 2024 8:10am Malignant neoplasm of right kidney, except renal pelvis chronic Apri l 2024 8:10am Anemia chronic September 14, 2024 10:22am Bone metastases chronic September 14, 2024 10:22am Breast cancer metastasized t o axillary lymph node chronic September 14 10:22am Liver metastases chronic September 14, 2024 10:22am Malignant neoplasm of overlapping sites of left breast in female, estrogen chronic September 142024 10:22am Malignant neoplasm of right kidney, except renal pelvis chronic September 14, 2024 10:22am Central line complication acute September 28, 2024 10:34am Anemia chronic September 28, 2024 10:34am Bone metastases chronic September 28, 2024 10:34am Breast cancer metastasized t o axillary lymph node chronic September 28 10:34am Liver metastases chronic September 10:34am Malignant neoplasm of overlapping sites of left breast in female, estrogen chronic September 142024 10:34am Malignant neoplasm of right kidney, except renal pelvis chronic September 28, 2024 10:34am Anemia chronic October 05, 2024 10:25am Bone metastases chronic October 05, 2024 10:25am Breast cancer metastasized t o axillary lymph node chronic October 05 10:25am Iron deficiency anemia due t o chronic blood loss chronic October 05 10:25am Liver metastases chronic September 10:25am Malignant neoplasm of overlapping sites of left breast in female, estrogen chronic September 152024 10:25am Malignant neoplasm of right kidney, except renal pelvis chronic October 05, 2024 10:25am Anemia chronic October 19, 2024 9:13am Bone metastases chronic October 19, 2024 9:13am Breast cancer metastasized t o axillary lymph node chronic October 19 9:13am Iron deficiency anemia due t o chronic blood loss chronic October 19 9:13am Liver metastases chronic October 9:13am Malignant neoplasm of overlapping sites of left breast in female, estrogen chronic October 19, 2024 9:13am Malignant neoplasm of right kidney, except renal pelvis chronic October 19, 2024 9:13am [facility] Work Phone: 1(688) 394-860101-13-2025 Evaluation note* Diagnosis Onset Date Resolution Status Admit Date Anemia chronic May 29, 2024 2:10pm Bone metastases chronic May 172024 2:10pm Breast cancer metastasized t o axillary lymph node chronic May 2:10pm Iron deficiency anemia due t o chronic blood loss chronic May 29, 2024 2:10pm Liver metastases chronic May 29, 2024 2:10pm Malignant neoplasm of overlapping sites of left breast in female, estrogen chronic Janua ry 2024 2:10pm Malignant neoplasm of right kidney, except renal pelvis chronic Gerard sixto 2024 2:10pm Anemia chronic June 26, 2024 2:18pm Bone metastases chronic June 26, 2024 2:18pm Breast cancer metastasized t o axillary lymph node chronic June 2:18pm Iron deficiency anemia due t o chronic blood loss chronic June 2:18pm Liver metastases chronic June 26, 2024 2:18pm Malignant neoplasm of overlapping sites of left breast in female, estrogen chronic Febru sixto 2024 2:18pm Malignant neoplasm of right kidney, except renal pelvis chronic Febr uary 2024 2:18pm Anemia chronic July 24 2:22pm Bone metastases chronic July 2:22pm Breast cancer metastasized t o axillary lymph node chronic July 24, 2024 2:22pm Iron deficiency anemia due t o chronic blood loss chronic July 24, 2 025 2:22pm Liver metastases chronic July 242024 2:22pm Malignant neoplasm of overlapping sites of left breast in female, estrogen chronic July 24, 2024 2:22pm Malignant neoplasm of right kidney, except renal pelvis chronic Andrei h 2024 2:22pm Encounter for education acute [facility] 2024 3:33pm Anemia chronic August 09 3:33pm Bone metastases chronic July 3:33pm Breast cancer metastasized t o axillary lymph node chronic August 09, 2024 3:33pm Iron deficiency anemia due t o chronic blood loss chronic August 09, 2 025 3:33pm Liver metastases chronic August 092024 3:33pm Malignant neoplasm of overlapping sites of left breast in female, estrogen chronic August 09, 2024 3:33pm Malignant neoplasm of right kidney, except renal pelvis chronic Andrei h 2024 3:33pm [facility] Work Phone: 1(761) 160-378912-16-2024 Evaluation note* Diagnosis Onset Date Resolution Status Admit Date Anemia chronic May 01, 2024 2:14pm Bone metastases chronic May 01, 2024 2:14pm Breast cancer metastasized t o axillary lymph node chronic April 2:14pm Iron deficiency anemia due t o chronic blood loss chronic April 2:14pm Liver metastases chronic May 01, 2024 2:14pm Malignant neoplasm of overlapping sites of left breast in female, estrogen chronic Decem thomas 2023 2:14pm Malignant neoplasm of right kidney, except renal pelvis chronic Dece mber 2023 2:14pm Anemia chronic May 29, 2024 2:10pm Bone metastases chronic May 172024 2:10pm Breast cancer metastasized t o axillary lymph node chronic May 2:10pm Iron deficiency anemia due t o chronic blood loss chronic May 29, 2024 2:10pm Liver metastases chronic May 29, 2024 2:10pm Malignant neoplasm of overlapping sites of left breast in female, estrogen chronic Janua ry 2024 2:10pm Malignant neoplasm of right kidney, except renal pelvis chronic Gerard sixto 2024 2:10pm Anemia chronic June 26, 2024 2:18pm Bone metastases chronic June 26, 2024 2:18pm Breast cancer metastasized t o axillary lymph node chronic June 2:18pm Iron deficiency anemia due t o chronic blood loss chronic June 2:18pm Liver metastases chronic June 26, 2024 2:18pm Malignant neoplasm of overlapping sites of left breast in female, estrogen chronic Febru [email or web address] 2:18pm Malignant neoplasm of right kidney, except renal pelvis chronic Febr uary 2024 2:18pm Anemia chronic July 24 2:22pm Bone metastases chronic July 2:22pm Breast cancer metastasized t o axillary lymph node chronic July 24, 2024 2:22pm Iron deficiency anemia due t o chronic blood loss chronic July 24, 2 025 2:22pm Liver metastases chronic July 242024 2:22pm Malignant neoplasm of overlapping sites of left breast in female, estrogen chronic July 24, 2024 2:22pm Malignant neoplasm of right kidney, except renal pelvis chronic Andrei h 2024 2:22pm Encounter for education acute [facility] 2024 3:33pm Anemia chronic August 09 3:33pm Bone metastases chronic July 3:33pm Breast cancer metastasized t o axillary lymph node chronic August 09, 2024 3:33pm Iron deficiency anemia due t o chronic blood loss chronic August 09, 2 025 3:33pm Liver metastases chronic August 092024 3:33pm Malignant neoplasm of overlapping sites of left breast in female, estrogen chronic August 09, 2024 3:33pm Malignant neoplasm of right kidney, except renal pelvis chronic Andrei h 2024 3:33pm [facility] Work Phone: 1(224) 118-106003-17-2023 Miscellaneous Notes* Telephone Encounter - Karen Anderson LPN - 07/31/2022 8:26 AM EDT No longer under this prescriber's care. Karen Anderson LPN documented in this encounterOhio[facility] Miscellaneous Notes* Telephone Encounter - Tommy French DO - 12/17/2021 8:07 AM EDT Yes, I was aware of that. Tommy French DO * Telephone Encounter - Diana Harley - 12/16/2021 4:51 PM EDT Pt called regarding future appointments. She has transferred care to the infusion center at the [facility] and will no longer need scheduled here. documented in this encounterOhiohealth [facility]06-09-2022 Miscellaneous Notes* Telephone Encounter - Selam Daugherty - 10/23/2021 10:57 AM EDT Tried to reach pt, went, to , left a message regarding information below. Selam Daugherty * Telephone Encounter - Stephanie Howell RN - 10/23/2021 9:53 AM EDT PSS - Graciela is scheduled at 3:30 for her Zometa treatments (per her request), however, labwork takes 45 min-1hour , could you please advise her she will need to come in for labs at 2:30 - 3:00. Thankyou! documented in this encounterOhio[facility]06-09-2022 Miscellaneous Notes* Telephone Encounter - Viky Hogan LPN - 10/23/2021 7:12 AM EDT Patient has been identified by name and [...] patient. Viky Hogan LPN documented in this encounterOhio[facility]04-20-2022 Miscellaneous Notes* Telephone Encounter - Karen Anderson LPN - 09/03/2021 11:56 AM EDT Patient will begin next cycle of Xeloda 09/10/2021. Leave labs scheduled as is. Patient is aware. Karen Anderson LPN * Telephone Encounter - Karen Anderson LPN - 09/03/2021 8:42 AM EDT Left message for patient to contact this nurse to confirm Xeloda off week. Karen Anderson LPN documented in this encounterOhio[facility]04-19-2022 Miscellaneous Notes* Telephone Encounter - Mandy Red - 09/02/2021 4:06 PM EDT Spoke with patient to schedule. Patient expressed concern over frequency of appointments. Patient to reach out to Dr. French directly. Please keep this note open until Dr. French and patient converse. Mandy Red * Telephone Encounter - Mandy Red - 09/02/2021 9:42 AM EDT Second attempt to contact patient to schedule - left voicemail. When patient calls, please message and warm transfer to [facility] PSS for scheduling of below appointments. Mandy Red * Telephone Encounter - Mandy Red - 08/27/2021 10:55 AM EDT Left message for patient to return call. When patient calls, please schedule Q3WK CBC/CMP(PORT)* onoff weeks for Xeloda and an Est Pat w/ Chemo with Dr. French in approx. 6 weeks. Once scheduled, document and route to [facility] HEM/ONC PSR. Mandy Ellis documented in this encounterOhiohealth [facility]04-13-2022 NoteHNO ID: [id number] Author: Tommy French, DO Service: ? Author [...] was not observed. The tumor specimen was ER/IN positive (greater than 95%, moderate) and IN positive (27%, weak). The tumor was HER-2 [...] the kidney [facility] (more content not included)...[facility] History of Present illness Narrative* Tommy French, DO - 08/27/2021 9:22 AM EDT Diagnosis: 1) Breast cancer. 2) Right renal [...] was not observed. The tumor specimen was ER/IN positive (greater than 95%, moderate) and IN positive (27%, weak). The tumor was HER-2 [...] well-defined osteolytic lucency in the LEFT humeral headabout 1.8 cm in diameter without associated sclerosis. Liver: There is a round mildly heterogeneousdensity in the dome of hepatic segment 7 of about 1 cm in diameter (series 4 image 14 ), with periph eral enhancement. In the anterior aspect of the buttocks for there is a low- attenuation density 6 mm in diameter. Similar sized [...] sentinel node biopsy, additional juan dissection, and rightprophylactic mastectomy 02/28/2016. 3) Exam under anesthesia, diagnostic [...] motion. No pain. She continues to be veryactive on a daily basis and is working [...] necessary. Tommy French DO documented in this encounterOhiohealth [facility]04-11-2022 NoteHNO ID: [id number] Author: Jamila Frausto RN Service: ? Author Type: Registered Nurse Type: Nursing Progress Note Filed: 08/25/2021 9:42 AM Note Text: Now denies nausea. States feeling much better. Jamila Frausto RNReg[facility] Center04-11-2022 NoteHNO ID: [id number] Author: Jamila Frausto RN Service: ? Author Type: Registered Nurse Type: Nursing Progress Note Filed: 08/25/2021 8:48 AM Note Text: Pt received in PACU. Pt awake. Denies pain or nausea. Abd soft and non distended. Jamila Frausto RNRegional [facility]* Jamila Frausto RN - 08/25/2021 9:20 AM EDT Now denies nausea. States feeling much better. Jamila Frausto RN * Jamila Frausto RN - 08/25/2021 9:10 AM EDT Back to bed. Was able to pass air rectally. States feeling better. Sipping at drink and taking somebites of saltine crackers. Jamila Frausto RN * Jamila Frausto RN - 08/25/2021 9:05 AM EDT Still slightly nauseated. Feels like she needs to pass some gas rectally. Ambulated to the bathroom. Jamila Frausto RN * Jamila Frausto RN - 08/25/2021 8:57 AM EDT Sat pt up in bed and suddenly became nauseated. Dr. Oliveros in procedure room- given update on patient and verbal orders received. Sister at bedside. Jamila Frausto RN * Jamila Frausto RN - 08/25/2021 8:35 AM EDT Pt received in PACU. Pt awake. Denies pain or nausea. Abd soft and non distended. Jamila Frausto RN * Jamila Frausto RN - 08/25/2021 8:00 AM EDT [facility] NURSING HAND OFF NOTE SBAR Hand off given to Mariaelena Adam RN. Hand off was communicated verbally and at the patient's bedside and all questions were answered. Jamila Frausto RN [facility] History and physical note * Zackery Oliveros MD - 08/25/2021 8:00 AM EDT Diagnosis: 1) Breast cancer. 2) Right renal [...] was not observed. The tumor specimen was ER/IN positive (greater than 95%, moderate) and IN positive (27%, weak). The tumor was HER-2 [...] well-defined osteolytic lucency in the LEFT humeral headabout 1.8 cm in diameter without associated sclerosis. Liver: There is a round mildly heterogeneousdensity in the dome of hepatic segment 7 of about 1 cm in diameter (series 4 image 14 ), with periph eral enhancement. In the anterior aspect of the buttocks for there is a low- attenuation density 6 mm in diameter. Similar sized [...] sentinel node biopsy, additional juan dissection, and rightprophylactic mastectomy 02/28/2016. 3) Exam under anesthesia, diagnostic [...] daughter is here with her at today's visitand she would like to see her mom have a bit of a break from chemotherapy due to the skin toxicity.She endorses that her mom has a hard time walking sometimes because of the involvement of the feet.Patient has been very reluctant to lower the dose any further or take any further delay in therapy.She denies mouth sores. No other side effects. [...] erythematous diffusely. Mild drying and cracking of thejoint folds. No bleeding or open areas. Able [...] has been reviewed and the patient has beenexamined. The contents accurately reflect the patient's condition with the following additions or revisions since the H&P was completed. Examination indicates no changes. This H&P can be found in the attached. SIGNATURE: Zackery Oliveros III, MD PATIENT NAME: Graciela Haywood DATE: August 25, 2021 TIME: 7:48 AM documented in this encounter[facility] NoteHNO ID: [id number] Author: Tommy French DO Service: ? Author [...] was not observed. The tumor specimen was ER/IN positive (greater than 95%, moderate) and IN positive (27%, weak). The tumor was HER-2 [...] the kidney [facility] (more content not included)...[facility]01[facility] NoteHNO ID: [id number] Author: Tommy French, DO Service: ? Author Type: Physician Type: Progress Notes Filed: 06/09/2021 4:36 PM Note Text: AMBULATORY TELEPHONE VISIT Graciela Haywood has consented to this telephone encounter. [...] was not observed. The tumor specimen was ER/IN positive (greater than 95%, moderate) and IN positive (27%, weak). The tumor was HER-2 [...] ? ? Not applicable (more content not included)...[facility] 05-19-2021 NoteHNO ID: [id number] Author: Stephanie Howell RN Service: ? Author Type: Registered Nurse Type: Progress Notes Filed: 05/19/2021 4:21 PM Note Text: Patient is here for IVAD port flush/blood draw per [facility] protocol. IVAD is located in right upper [...] redness, edema or tenderness. Patient tolerated procedure well.[facility] 05-08-2021 NoteHNO ID: [id number] Author: Norma Renee PA-C Service: ? Author Type: Physician Camera Tuning Engineer Type: Progress Notes Filed: 05/08/2021 3:47 PM Note Text: HISTORY AND PHYSICAL Graciela Haywood 1970 REFERRING PHYSICIAN: Tommy French DO CHIEF COMPLAINT: Consult (Colonoscopy) HPI: The patient is a 51 year old female referred for endoscopy. Graciela notes no colon complaints. Patient denies any change in bowel habits, weight changes, blood in stools, black tarry stools or abdominal pain. Denies family history of colon issues. The patient notes no upper GI complaints. Graciela has not undergone prior endoscopy. Patient's past [...] entered by the nurse and reviewed by dc Nursing Notes: Tiff Wayne 05/08/2021 2:36 PM [...] denies tuberculosis, denies pneumonia, (more content not included)...[facility]12[facility]13[facility]21 NoteHNO ID: [id number] Author: Tommy French, DO Service: ? Author [...] was not observed. The tumor specimen was ER/IN positive (greater than 95%, moderate) and IN positive (27%, weak). The tumor was HER-2 [...] the kidney [facility] (more content not included)...[facility]11[facility]21 NoteHNO ID: [id number] Author: RT Emperatriz(R) Service: ? Author Type: Chef & Owner Type: Progress Notes Filed: 04/14/2021 12:05 PM Note Text: Radiology Service Progress Note PATIENT NAME: Graciela Haywood DATE OF SERVICE: April 14, 2021 [...] PERIPHERAL IV DATA: power port accessed by [employer] SIGNED BY: RT Adilia(R) April 14, 2021 12:05 [facility]09-13-2021 NoteHNO ID: [id number] Author: Tommy French, DO Service: ? Author [...] was not observed. The tumor specimen was ER/IN positive (greater than 95%, moderate) and IN positive (27%, weak). The tumor was HER-2 [...] the kidney [facility] (more content not included)...[facility]13[facility]21 NoteHNO ID: [id number] Author: Stephanie Howell RN Service: ? Author Type: Registered Nurse Type: Progress Notes Filed: 01/27/2021 3:04 PM Note Text: Patient is here for IVAD port flush/blood draw per [facility] protocol. IVAD is located in right upper [...] redness, edema or tenderness. Patient tolerated procedure well.[facility] 03-15-2017 History of Past illness Narrative* Problem Noted Date Resolved Date Renal neoplasm 03/15/2017 10/21/2017 Malignant neoplasm of overla pping sites of left breast in female, estrogen receptor negative 02/05/2017 02/08/2017 Overview: Added automatically from request for surgery [id number] Cancer of overlapping sites of left female breas t 09/12/2015 02/08/2017 Left breast mass 08/30/2015 09/12/2015 documented as of this encounter (statuses as of 08/26/2021) [facility] of Past illness Narrative* Problem Noted Date Resolved Date Renal neoplasm 03/15/2017 10/21/2017 Malignant neoplasm of overla pping sites of left breast in female, estrogen receptor negative 02/05/2017 02/08/2017 Overview: Added automatically from request for surgery [id number] Cancer of overlapping sites of left female breas t 09/12/2015 02/08/2017 Left breast mass 08/30/2015 09/12/2015 documented as of this encounter (statuses as of 08/27/2021) [facility] Narrative* Problem Noted Date Resolved Date Renal neoplasm 03/15/2017 10/21/2017 Malignant neoplasm of overla pping sites of left breast in female, estrogen receptor negative 02/05/2017 02/08/2017 Overview: Added automatically from request for surgery [id number] Cancer of overlapping sites of left female breas t 09/12/2015 02/08/2017 Left breast mass 08/30/2015 09/12/2015 documented as of this encounter (statuses as of 09/03/2021) [facility] Narrative* Problem Noted Date Resolved Date Renal neoplasm 03/15/2017 10/21/2017 Malignant neoplasm of overla pping sites of left breast in female, estrogen receptor negative 02/05/2017 02/08/2017 Overview: Added automatically from request for surgery [id number] Cancer of overlapping sites of left female breas t 09/12/2015 02/08/2017 Left breast mass 08/30/2015 09/12/2015 documented as of this encounter (statuses as of 09/05/2021) [facility] Narrative* Problem Noted Date Resolved Date Renal neoplasm 03/15/2017 10/21/2017 Malignant neoplasm of overla pping sites of left breast in female, estrogen receptor negative 02/05/2017 02/08/2017 Overview: Added automatically from request for surgery [id number] Cancer of overlapping sites of left female breas t 09/12/2015 02/08/2017 Left breast mass 08/30/2015 09/12/2015 documented as of this encounter (statuses as of 09/08/2021) [facility] Narrative* Problem Noted Date Resolved Date Renal neoplasm 03/15/2017 10/21/2017 Malignant neoplasm of overla pping sites of left breast in female, estrogen receptor negative 02/05/2017 02/08/2017 Overview: Added automatically from request for surgery [id number] Cancer of overlapping sites of left female breas t 09/12/2015 02/08/2017 Left breast mass 08/30/2015 09/12/2015 documented as of this encounter (statuses as of 09/08/2021) [facility] Narrative* Problem Noted Date Resolved Date Renal neoplasm 03/15/2017 10/21/2017 Malignant neoplasm of overla pping sites of left breast in female, estrogen receptor negative 02/05/2017 02/08/2017 Overview: Added automatically from request for surgery [id number] Cancer of overlapping sites of left female breas t 09/12/2015 02/08/2017 Left breast mass 08/30/2015 09/12/2015 documented as of this encounter (statuses as of 10/23/2021) [facility] Narrative* Problem Noted Date Resolved Date Renal neoplasm 03/15/2017 10/21/2017 Malignant neoplasm of overla pping sites of left breast in female, estrogen receptor negative 02/05/2017 02/08/2017 Overview: Added automatically from request for surgery [id number] Cancer of overlapping sites of left female breas t 09/12/2015 02/08/2017 Left breast mass 08/30/2015 09/12/2015 documented as of this encounter (statuses as of 10/23/2021) [facility] Narrative* Problem Noted Date Resolved Date Renal neoplasm 03/15/2017 10/21/2017 Malignant neoplasm of overla pping sites of left breast in female, estrogen receptor negative 02/05/2017 02/08/2017 Overview: Added automatically from request for surgery [id number] Cancer of overlapping sites of left female breas t 09/12/2015 02/08/2017 Left breast mass 08/30/2015 09/12/2015 documented as of this encounter (statuses as of 10/27/2021) [facility] Narrative* Problem Noted Date Resolved Date Renal neoplasm 03/15/2017 10/21/2017 Malignant neoplasm of overla pping sites of left breast in female, estrogen receptor negative 02/05/2017 02/08/2017 Overview: Added automatically from request for surgery [id number] Cancer of overlapping sites of left female breas t 09/12/2015 02/08/2017 Left breast mass 08/30/2015 09/12/2015 documented as of this encounter (statuses as of 10/31/2021) [facility] Narrative* Problem Noted Date Resolved Date Renal neoplasm 03/15/2017 10/21/2017 Malignant neoplasm of overla pping sites of left breast in female, estrogen receptor negative 02/05/2017 02/08/2017 Overview: Added automatically from request for surgery [id number] Cancer of overlapping sites of left female breas t 09/12/2015 02/08/2017 Left breast mass 08/30/2015 09/12/2015 documented as of this encounter (statuses as of 11/10/2021) [facility] Narrative* Problem Noted Date Resolved Date Renal neoplasm 03/15/2017 10/21/2017 Malignant neoplasm of overla pping sites of left breast in female, estrogen receptor negative 02/05/2017 02/08/2017 Overview: Added automatically from request for surgery [id number] Cancer of overlapping sites of left female breas t 09/12/2015 02/08/2017 Left breast mass 08/30/2015 09/12/2015 documented as of this encounter (statuses as of 12/17/2021) [facility] Narrative* Problem Noted Date Resolved Date Renal neoplasm 03/15/2017 10/21/2017 Malignant neoplasm of overla pping sites of left breast in female, estrogen receptor negative 02/05/2017 02/08/2017 Overview: Added automatically from request for surgery [id number] Cancer of overlapping sites of left female breas t 09/12/2015 02/08/2017 Left breast mass 08/30/2015 09/12/2015 documented as of this encounter (statuses as of 07/31/2022) [facility] Encounter for screening for malignant neoplasm of colon Special screening for malignant neoplasms, colon [facility] Malignant neoplasm of overlapping sites of left breast in female, estrogen receptor positive (HCC)- Primary Liver metastasis (HCC) Secondary malignant neoplasm of liver Bone metastases (HCC) Secondary malignant neoplasm of bone and bone marrow [facility] Malignant neoplasm of overlapping sites of left breast in female, estrogen receptor positive (HCC)- Primary Liver metastasis (HCC) Secondary malignant neoplasm of liver Bone metastases (HCC) Secondary malignant neoplasm of bone and bone marrow [facility] Malignant neoplasm of overlapping sites of left breast in female, estrogen receptor positive (HCC)- Primary Liver metastasis (HCC) Secondary malignant neoplasm of liver Bone metastases (HCC) Secondary malignant neoplasm of bone and bone marrow [facility] Diagnosis Malignant neoplasm of overlapping sites of left breast in female, estrogen receptor positive (HCC) [facility] Diagnosis Malignant neoplasm of overlapping sites of left breast in female, estrogen receptor positive (HCC)- Primary Liver metastasis (HCC) Secondary malignant neoplasm of liver Bone metastases (HCC) Secondary malignant neoplasm of bone and bone marrow [facility]* Diagnosis Malignant neoplasm of overlapping sites of left breast in female, estrogen receptor positive (HCC)- Primary Liver metastasis (HCC) Secondary malignant neoplasm of liver Bone metastases (HCC) Secondary malignant neoplasm of bone and bone marrow Breast cancer metastasized to axillary lymph node, left (HCC) [facility] Diagnosis Onset Date Resolution Status Bone metastases chronic Breast cancer metastasized to axillary lymph node chronic Hypokalemia chronic Liver metastases chronic Lung nodule chronic [id number] chronic Malignant neoplasm of right kidney, except renal pelvi s chronic [facility] Work Phone: Evaluation note* Diagnosis Onset Date Resolution Status Bone metastases chronic Breast cancer metastasized to axillary lymph node chronic Liver metastases chronic Lung nodule chronic [id number] chronic Malignant neoplasm of right kidney, except renal pelvis chronic Hypokalemia resolved Bone metastases chronic Breast cancer metastasized to axillary lymph node chronic Liver metastases chronic Lung nodule chronic [id number] chronic Malignant neoplasm of right kidney, except renal pelvis chronic [facility] Work Phone: Evaluation note* Diagnosis Onset Date Resolution Status Bone metastases chronic Breast cancer metastasized to axillary lymph node chronic Liver metastases chronic Lung nodule chronic [id number] chronic Malignant neoplasm of right kidney, except renal pelvi s chronic Bone metastases chronic Breast cancer metastasized to axillary lymph node chronic Liver metastases chronic Lung nodule chronic [id number] chronic Malignant neoplasm of right kidney, except renal pelvi s chronic Bone metastases chronic Breast cancer metastasized to axillary lymph node chronic Hypokalemia chronic Liver metastases chronic Lung nodule chronic [id number] chronic Malignant neoplasm of right kidney, except renal pelvi s chronic Anemia chronic Bone metastases chronic Breast cancer metastasized to axillary lymph node chronic Hypokalemia chronic Liver metastases chronic Lung nodule chronic [id number] chronic Malignant neoplasm of right kidney, except renal pelvi s chronic Anemia chronic Bone metastases chronic Breast cancer metastasized to axillary lymph node chronic Hypokalemia chronic Liver metastases chronic Lung nodule chronic [id number] chronic Malignant neoplasm of right kidney, except renal pelvi s chronic [facility] Work Phone: Evaluation note* Diagnosis Onset Date Resolution Status Bone metastases chronic Breast cancer metastasized to axillary lymph node chronic Liver metastases chronic Lung nodule chronic [id number] chronic Malignant neoplasm of right kidney, except renal pelvi s chronic Bone metastases chronic Breast cancer metastasized to axillary lymph node chronic Hypokalemia chronic Liver metastases chronic Lung nodule chronic [id number] chronic Malignant neoplasm of right kidney, except renal pelvi s chronic Anemia chronic Bone metastases chronic Breast cancer metastasized to axillary lymph node chronic Hypokalemia chronic Liver metastases chronic Lung nodule chronic [id number] chronic Malignant neoplasm of right kidney, except renal pelvi s chronic Anemia chronic Bone metastases chronic Breast cancer metastasized to axillary lymph node chronic Hypokalemia chronic Liver metastases chronic Lung nodule chronic [id number] chronic Malignant neoplasm of right kidney, except renal pelvi s chronic Anemia chronic Bone metastases chronic Breast cancer metastasized to axillary lymph node chronic Hypokalemia chronic Iron deficiency anemia due to chronic blood loss chronic Liver metastases chronic Lung nodule chronic [id number] chronic Malignant neoplasm of right kidney, except renal pelvi s chronic Encounter for education acut e Anemia chronic Bone metastases chronic Breast cancer metastasized to axillary lymph node chronic Iron deficiency anemia due to chronic blood loss chronic Liver metastases chronic [id number] chronic Malignant neoplasm of right kidney, except renal pelvi s chronic Anemia chronic Bone metastases chronic Breast cancer metastasized to axillary lymph node chronic Iron deficiency anemia due to chronic blood loss chronic Liver metastases chronic [id number] chronic Malignant neoplasm of right kidney, except renal pelvi s chronic [facility] Work Phone: Evaluation note* Diagnosis Onset Date Resolution Status Anemia chronic Bone metastases chronic Breast cancer metastasized to axillary lymph node chronic Iron deficiency anemia due to chronic blood loss chronic Liver metastases chronic [id number] chronic Malignant neoplasm of right kidney, except renal pelvi s chronic Anemia chronic Bone metastases chronic Breast cancer metastasized to axillary lymph node chronic Hypokalemia chronic Liver metastases chronic [id number] chronic Malignant neoplasm of right kidney, except renal pelvi s chronic Anemia chronic Bone metastases chronic Breast cancer metastasized to axillary lymph node chronic Hypokalemia chronic Liver metastases chronic [id number] chronic Malignant neoplasm of right kidney, except renal pelvi s chronic Anemia chronic Bone metastases chronic Breast cancer metastasized to axillary lymph node chronic Iron deficiency anemia due to chronic blood loss chronic Liver metastases chronic [id number] chronic Malignant neoplasm of right kidney, except renal pelvi s chronic Anemia chronic Bone metastases chronic Breast cancer metastasized to axillary lymph node chronic Iron deficiency anemia due to chronic blood loss chronic Liver metastases chronic [id number] chronic Malignant neoplasm of right kidney, except renal pelvi s chronic [facility] Work Phone: Evaluation note* Diagnosis Onset Date Resolution Status Anemia chronic Bone metastases chronic Breast cancer metastasized to axillary lymph node chronic Iron deficiency anemia due to chronic blood loss chronic Liver metastases chronic [id number] chronic Malignant neoplasm of right kidney, except renal pelvi s chronic Anemia chronic Bone metastases chronic Breast cancer metastasized to axillary lymph node chronic Hypokalemia chronic Liver metastases chronic [id number] chronic Malignant neoplasm of right kidney, except renal pelvi s chronic Anemia chronic Bone metastases chronic Breast cancer metastasized to axillary lymph node chronic Hypokalemia chronic Liver metastases chronic [id number] chronic Malignant neoplasm of right kidney, except renal pelvi s chronic Anemia chronic Bone metastases chronic Breast cancer metastasized to axillary lymph node chronic Iron deficiency anemia due to chronic blood loss chronic Liver metastases chronic [id number] chronic Malignant neoplasm of right kidney, except renal pelvi s chronic Anemia chronic Bone metastases chronic Breast cancer metastasized to axillary lymph node chronic Iron deficiency anemia due to chronic blood loss chronic Liver metastases chronic [id number] chronic Malignant neoplasm of right kidney, except renal pelvi s chronic Anemia chronic Bone metastases chronic Breast cancer metastasized to axillary lymph node chronic Iron deficiency anemia due to chronic blood loss chronic Liver metastases chronic [id number] chronic Malignant neoplasm of right kidney, except renal pelvi s chronic [facility] Work Phone: Evaluation note* Diagnosis Onset Date Resolution Status Anemia chronic Bone metastases chronic Breast cancer metastasized to axillary lymph node chronic Iron deficiency anemia due to chronic blood loss chronic Liver metastases chronic [id number] chronic Malignant neoplasm of right kidney, except renal pelvi s chronic CINV (chemotherapy-induced nausea and vomiting) acute Encounter for monitoring cardiotoxic drug therapy acute Anemia chronic Bone metastases chronic Breast cancer metastasized to axillary lymph node chronic Iron deficiency anemia due to chronic blood loss chronic Liver metastases chronic [id number] chronic Malignant neoplasm of right kidney, except renal pelvi s chronic Anemia chronic Bone metastases chronic Breast cancer metastasized to axillary lymph node chronic Iron deficiency anemia due to chronic blood loss chronic Liver metastases chronic [id number] chronic Malignant neoplasm of right kidney, except renal pelvi s chronic Bone metastases chronic Breast cancer metastasized to axillary lymph node chronic Iron deficiency anemia due to chronic blood loss chronic Liver metastases chronic [id number] chronic Malignant neoplasm of right kidney, except renal pelvi s chronic Anemia chronic Bone metastases chronic Breast cancer metastasized to axillary lymph node chronic Iron deficiency anemia due to chronic blood loss chronic Liver metastases chronic [id number] chronic Malignant neoplasm of right kidney, except renal pelvi s chronic [facility] Work Phone: Evaluation note* Diagnosis Onset Date Resolution Status Anemia chronic Bone metastases chronic Breast cancer metastasized to axillary lymph node chronic Iron deficiency anemia due to chronic blood loss chronic Liver metastases chronic [id number] chronic Malignant neoplasm of right kidney, except renal pelvi s chronic Bone metastases chronic Breast cancer metastasized to axillary lymph node chronic Iron deficiency anemia due to chronic blood loss chronic Liver metastases chronic [id number] chronic Malignant neoplasm of right kidney, except renal pelvi s chronic Anemia chronic Bone metastases chronic Breast cancer metastasized to axillary lymph node chronic Iron deficiency anemia due to chronic blood loss chronic Liver metastases chronic [id number] chronic Malignant neoplasm of right kidney, except renal pelvi s chronic Anemia chronic Bone metastases chronic Breast cancer metastasized to axillary lymph node chronic Iron deficiency anemia due to chronic blood loss chronic Liver metastases chronic [id number] chronic Malignant neoplasm of right kidney, except renal pelvi s chronic [facility] Work Phone: Evaluation note* Diagnosis Onset Date Resolution Status Anemia chronic Bone metastases chronic Breast cancer metastasized to axillary lymph node chronic Iron deficiency anemia due to chronic blood loss chronic Liver metastases chronic [id number] chronic Malignant neoplasm of right kidney, except renal pelvi s chronic Anemia chronic Bone metastases chronic Breast cancer metastasized to axillary lymph node chronic Iron deficiency anemia due to chronic blood loss chronic Liver metastases chronic [id number] chronic Malignant neoplasm of right kidney, except renal pelvi s chronic Anemia chronic Bone metastases chronic Breast cancer metastasized to axillary lymph node chronic Iron deficiency anemia due to chronic blood loss chronic Liver metastases chronic [id number] chronic Malignant neoplasm of right kidney, except renal pelvi s chronic Anemia chronic Bone metastases chronic Breast cancer metastasized to axillary lymph node chronic Iron deficiency anemia due to chronic blood loss chronic Liver metastases chronic [id number] chronic Malignant neoplasm of right kidney, except renal pelvi s chronic Anemia chronic Bone metastases chronic Breast cancer metastasized to axillary lymph node chronic Iron deficiency anemia due to chronic blood loss chronic Liver metastases chronic [id number] chronic Malignant neoplasm of right kidney, except renal pelvi s chronic [facility] Work Phone: Hospital Discharge instructions Additional Instructions You have a compression fracture of T8 which is chronic. I question if it is putting pressure all of the nerve to your chest wall which is causing your pain. You do not have any blood clots or other acute abnormalities in the lungs or upper abdomen. Your CT did show some inflammation around your sigmoid colon (which is in your pelvis/lower abdomen). If you develop any stool changes please return to the emergency room or follow-up closely with your oncology team as you might be developing an infection. As we discussed regularly take ibuprofen and Tylenol for pain control. You may use Lidoderm patches as well. You been given a prescription for tramadol for breakthrough pain. You been given a prescription for Phenergan suppositories in case your nausea vomiting send under control with your oral medications. You were offered admission for pain control and further inpatient workup. At this time you would prefer to go home and rest in your own bed however if your symptoms worsen please do not hesitate to return to the emergency room. Please follow-up with your oncologist on Wednesday.[facility] Work Phone: Progress note Author Olivia Castillo [facility] Services Note Date/Time November 21, 2024 11:08 am [facility] [place] [address] OFFICE VISIT Date of Service: 11/21/24 [facility] MR#: [id number] Acct: [id number] Name: GRACIELA HAYWOOD Rep #: [id number] : 1970 From: Olivia morton MD Age/Sex: 54/F Location: [facility] Status: Signed HPI Subjective Date of Service 11/21/24 Chief Complaint Breast cancer on treatment History of Present Illness 54-year-old female with metastatic breast cancer seen in second opinion November 2021. Her initial care had been at [facility] under the care of , switching to [facility] November 2021. #1-Left breast cancer, stage IV at presentation in 2015, ER positive (over 95% moderate), IN positive (27%, weak) and HER2 1+, that presented with a palpable lump in the left breast and staging revealed multiple bone metastases, liver metastases, and a right lung nodule. Patient received Adriamycin Cytoxan followed by Taxol and then underwent surgical debulking with left mastectomy, sentinel lymph node biopsy and a prophylactic right mastectomy in February 2016. At the same time she underwent laparoscopic bilateral salpingo-oophorectomy. Pathology February 2016 revealed multifocal residual invasive ductal cancer, metastatic cancer was found in 2 of 5 lymph nodes in addition to a single tumor deposit within the axillary fat. Following surgery patient received hormonal therapy (see below for summary) from 2015 through 2018. After progression on hormonal therapy she has been on single agent capecitabine since March 2019 with stable disease. December 08, 2021 CT chest abdomen and pelvis: IMPRESSION: Small cysts in both lobes of the liver. Small cyst in the left kidney. Almost complete collapse of the T6 vertebrae. December 12, 2021 bone scan: IMPRESSION: Normal whole body nuclear bone scan. ? May 04, 2022 bone scan: IMPRESSION: 1. The increase in radiotracer concentration defined in the right anterior-posterior first rib is commensurate with trauma-fracture.? Plain film radiography correlation may be of benefit. 2.? Degenerative arthrosis is defined in the bilateral shoulders, the right knee, the second lumbar vertebra. 3.? Overall compared to the previous whole body bone scintigraphy study dated 12/12/2021, there is no significant interval change.? No definitive scintigraphic evidence of diffuse axial skeletal metastatic disease is apparent on the current examination. May 08, 2022 CT chest abdomen and pelvis: ABDOMEN There is a 2 cm x 2.1 cm hypodense nodule in the posterior aspect of the right dome of the liver.? A metastatic deposit should be ruled out.? Tiny cysts are also seen and these are unchanged.? Normal gallbladder and extrahepatic biliary system.? Normal spleen.? Normal pancreas. September 17, [address]: IMPRESSION: Interval mild regression of hypoechoic lesion dome of right lobe liver. Otherwise stable interval examination without other evidence of possible metastatic disease. No acute findings in the chest or abdomen. December 22, 2022 CT chest and abdomen: IMPRESSION: Interval decrease in size of the low-attenuation lesion in the dome of the right lobe of the liver. Stable hepatic cyst and left renal cysts. December 28, 2022 bone scan: IMPRESSION: 1. The increase in tracer uptake noted in the right first rib likely represents trauma-fracture. Uptake noted in the left proximal humeral metaphysis may be further investigated with plain film radiography. 2. Degenerative arthritis is defined in the right ankle, both shoulder articulations and right-left forefoot. 3. Overall compared to the previous whole body bone scintigraphy study dated 05/04/2022, there is minimal interval change, there is no definitive scintigraphic evidence of diffuse axial skeletal metastatic disease. Asymmetric uptake noted in the left proximal humerus on the current examination may be further assessed with plain film radiography as defined above. April 07, 2023 CT chest and abdomen: IMPRESSION: 1. Irregular low-attenuation lesion within the right hepatic lobe at the dome the liver, smaller since 05/08/2022 likely indicative of a treated metastasis. Other more well-defined low-attenuation foci within the liver have been unchanged and may be cysts although some of them are too small to further characterize. No new focal hepatic abnormality. 2. Left lower pole renal low-attenuation lesion with Hounsfield units of approximately 35-40 appears unchanged since at least 05/08/2022 and may be a complicated cyst rather than a solid lesion. 3. Mixed attenuation expansile lesion within the right first rib is nonspecific. This appears unchanged since 05/08/2022 and is indeterminate, perhaps a metastatic lesion. July 05, 2023 bone scan: IMPRESSION: 1. 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 2. 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 3. Overall compared to the previous whole body bone scintigraphy study dated 12/28/2022, there is apparent progression of defined viable osseous neoplastic disease. If flare phenomenon is a diagnostic consideration, repeat whole body bone scintigraphy in 12-16 weeks is recommended. July 08, 2023 CT chest abdomen and pelvis: IMPRESSION: CT chest: Possible pneumonitis within the right middle lobe, otherwise normal CT chest with no evidence of metastatic disease. CT abdomen/pelvis: Stable liver lesions as described. No new lesions in the interval. Low-attenuation structures within the left kidney, unchanged in the interval with no new cysts or renal lesions seen. No distinct lymphadenopathy or ascites. Possible descending colitis. November 04, 2023 CT chest abdomen and pelvis: ABDOMEN Stable 8.5 mm cyst in the anterior aspect of the left lobe of liver. There is evidence of a 2.9 cm x 2.2 cm area of heterogeneous enhancement in the dome of the liver just inferior to the right hemidiaphragm. This was not well-seen on prior image. Metastatic deposit should be ruled out. Normal gallbladder and extrahepatic biliary system. Normal spleen. Normal pancreas. Normal bilateral adrenal glands. Normal right kidney. Stable small left renal cysts. Normal visualized stomach. Normal small intestine. There is abnormal appearance of the colon with circumferential wall thickening and thickening ostial pattern. Colitis should be ruled out. There is non-visualization of the appendix. Normal abdominal aorta. Normal inferior vena cava. Normal retroperitoneum. Normal abdominal wall. Disc space narrowing at the L3-L4 level. IMPRESSION: Abnormal appearance of the dome of the right lobe of the liver. A metastatic deposit should be ruled out. There is circumferential wall thickening of the colon suggestive of colitis. Stable compression of the T8 vertebrae November 25, 2023 Next generation sequencing (liquid ) showed PIK3CA mutation, in addition to K-george G12 C, NF1 mutations. April 12, 2024 CT chest abdomen and pelvis: IMPRESSION: Hepatic lesions as described, relatively stable since the previous study. Relatively stable compression of T8. Bony lesion of L2 vertebral body with increase in size and sclerosis. Increasing sclerotic lesions of the sacrum and iliac bone at the left sacroiliac joint. April 17, 2024 bone scan: IMPRESSION: 1. The increase in radiopharmaceutical concentration defined in the left proximal humerus, the left sacroiliac joint, the first lumbar vertebra, the right posterior first rib and newly apparent in the right posterior inferior acetabulum is most consistent with skeletal metastatic disease. 2. Facilitated uptake noted in the first and second ribs anteriorly on the right at the costochondral junction is most consistent with an inflammatory process or trauma-fracture. Accentuated tracer noted in the bilateral proximal tibial metaphyses may be further investigated with plain film radiography secondary to the intensity of uptake. 3. 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 4. Overall compared to the previous bone scintigraphy study dated 07/05/2023, there is persistent demonstration of skeletal metastatic disease. August 07, 2024 CT Chest, Abd, Pel w/Contrast IMPRESSION: CT chest: 1. No evidence of thoracic metastatic disease. 2. Stable T8 vertebral body compression fracture deformity. CT abdomen pelvis: 1. Increased size of the hepatic dome mass, presumably hepatic metastatic disease. 2. Continued sclerosis of the L2 vertebral body and SI joints, likely secondary to chemotherapy regimen. If concern for osseous metastatic disease, bone scan could be obtained for further evaluation. 3. No additional new or enlarging abdominopelvic metastatic disease. August 10, 2024 bone scan: FINDINGS: 1. THE AREA OF INCREASED OSSEOUS UPTAKE IN THE VICINITY OF C7 BEST SEEN ON THE POSTERIOR IMAGES WAS NOT NOTED ON THE PREVIOUS STUDY, CONCERNING FOR METASTATIC DISEASE.. 2. OSSEOUS UPTAKE IN THE LEFT SACROILIAC JOINT IS STABLE. 3. OSSEOUS UPTAKE IN THE 1ST LUMBAR VERTEBRA, STABLE. 4. NEW AREAS OF INCREASED OSSEOUS UPTAKE ARE NOTED IN THE RIGHT 3RD THROUGH 5THRIBS, MOST LIKELY METASTATIC. 5. RIGHT POSTERIOR 1ST RIB OSSEOUS UPTAKE IS STABLE. 6. DEGENERATIVE ARTHRITIC CHANGE IN THE BILATERAL SHOULDERS, STABLE. 7. NO ABNORMAL OSSEOUS UPTAKE IN THE BILATERAL KNEES. August 18, 2024 CTA chest: Emergency room visit with abdominal pain IMPRESSION: No evidence of filling defect to suggest pulmonary embolism. Right port, mastectomies and osseous metastatic disease again noted. August 18, 2024 CT abdomen and pelvis: IMPRESSION: 1. Interval enlargement hepatic dome hypoenhancing mass, mild concerning for worsening metastasis. 2. Rectosigmoid wall thickening, submucosal hyperemia and soft tissue stranding,concerning for acute infectious proctocolitis. 3. Stable diffuse osseous metastasis August 28, 2024 thoracic spine MRI: FINDINGS: Vertebrae: T1, T3, and T12 vertebral body STIR hyperintense and T1 hypointense lesions. A few tiny lesions are scattered in the vertebral bodies. T8 vertebral body fracture. Partially visualized L2 abnormalsignal. Alignment: Normal. No spondylolisthesis. Spinal Cord: Thoracic spinal cord is of normal size and signal intensities. No thoracic spinal cord lesions are identified. Multilevel perineural cysts. Disc spaces: Mild multilevel thoracic degenerative changes without central canalstenosis. Paraspinal Tissues: Mild paraspinous muscle fatty infiltration. Postcontrast images: Enhancement of the vertebral body lesions.. IMPRESSION: Dominant enhancing lesions, likely metastases, at T1, T3, and T12 vertebral bodies. Smaller lesions are noted in the T4 and L1 vertebral bodies. T8 vertebral body fracture redemonstrated. November 20, 2024 CT chest abdomen and pelvis: IMPRESSION: 1. Progression of hepatic and skeletal metastatic disease #2-right kidney clear cell carcinoma, incidental finding on imaging for metastatic breast cancer status post right partial nephrectomy February 2017. 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 Breast cancer treatment summary and response: * Systemic therapy: 1-AC followed by T 2015. 2- Hormonal therapy, anastrozole 2015?2017. 3- Hormonal therapy, fulvestrant with palbociclib October 2017?January 2018 a short trial but had progressive disease. 4- Hormonal therapy, exemestane and everolimus January 2018?March 2019 discontinued due to severe mucositis despite dose reduction. 5- Capecitabine March 2019-April 2022, main toxicity encountered was skin and GI, dose reduced by summer 2021 to 1000 mg in a.m. and 500 mg p.m. 2 weeks on 1 week off. Was in partial remission then progressed. 6-TDX-d (Enhertu) June 11, 2022-October 21, 2023: IN then progressive disease 7-TDM 1 (Kadcyla) was denied by insurance 8- capivasertib/fulvestrant December 13, 2023-July 2024 (capivasertinib dose reduction due to skin rash and mucositis); stable disease?then progression. 9- Trodelvy (Sacituzumab govitecan) September 07-November 16, 2024 (4 cycles) progressive disease 10-Datopotamab to start November 2019 * Left mastectomy with sentinel lymph node biopsy and prophylactic right mastectomy February 2016. Laparoscopic bilateral salpingo-oophorectomy February 2016. * Zometa every 3 months * Palliative radiation to right seventh rib May 2018 [facility] Medical History Central line complication Drug induced neutropenia Drug-induced skin rash Encounter for monitoring cardiotoxic drug therapy CINV (chemotherapy-induced nausea and vomiting) Encounter for education Iron deficiency anemia due to chronic blood loss Anemia Hypokalemia Lung nodule Kidney tumor Surgical History History of oophorectomy History of hysterectomy S/P mastectomy, bilateral Family History Grandfather Cancer Bone Heart disease Social History Smoking Status: Never smoker alcohol intake: never ROS Constitutional Constitutional: Reports systems reviewed and no addt'l complaints, except as documented and other Details: 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 ; Denies fatigue, fever(s) or weight loss Eyes Eyes: Reports systems reviewed and no addt'l complaints, except as documented; Denies change in vision ENT HEENT: Reports systems reviewed and no addt'l complaints, except as documented; Denies mucositis or nasal discharge Cardiovascular Cardiovascular: Reports systems reviewed and no addt'l complaints, except as documented; Denies chest pain with activity or edema Respiratory/Chest Respiratory/Chest: Reports systems reviewed and no addt'l complaints, except as documented; Denies cough or dyspnea on exertion Gastrointestinal Gastrointestinal: Reports systems reviewed and no addt'l complaints, except as documented; Denies diarrhea, hematochezia, melena, nausea or vomiting Genitourinary Genitourinary: Reports systems reviewed and no addt'l complaints, except as documented; Denies dysuria or hematuria Musculoskeletal Musculoskeletal: Reports systems reviewed and no addt'l complaints, except as documented, back pain and other Details: Back pain overall tolerable using OTC analgesics PRN Integumentary Integumentary: Reports systems reviewed and no addt'l complaints, except as documented and dry skin; Denies alopecia or rash Neurologic Neurologic: Reports systems reviewed and no addt'l complaints, except as documented; Denies focal weakness, headache(s) or paresthesias Psychiatric Psychiatric: Reports systems reviewed and no addt'l complaints, except as documented Endocrine Endocrinology: Reports systems reviewed and no addt'l complaints, except as documented Hematologic/Lymphatic Hematologic/Lymphatic: Reports systems reviewed and no addt'l complaints, exceptas documented; Denies easy bleeding or lymphadenopathy Allergic/Immunologic Allergic/Immunologic: Reports systems reviewed and no addt'l complaints, except as documented Intake Vital Signs 11/16/24 10:45 11/21/24 10:17 Height 5 ft 5 in 5 ft 5 in Weight: 54.488 kg BMI 20.0 BP 103/68 Blood Pressure Location Rt brachial Position Sitting Respiration 16 Pulse 81 Pulse Source Monitor Intake Accompanied by: Self Is patient in pain?: No Allergies oxycodone (From Percocet) Allergy (Verified 11/21/24 10:22) Vomiting Medications ?Medication ?Instructions ?Recorded ?Confirmed ?Type ondansetron 8 mg disintegrating 8 mg PO Q8H PRN nausea and 06/10/22 11/21/24 Rx tablet vomiting #30 tabs prochlorperazine maleate 10 mg 10 mg PO Q6H PRN nausea and 01/21/23 11/21/24 Rx tablet vomiting #30 tabs MAGIC MOUTH WASH (BMX) 180 mL 10 ml PO .4h PRN pain #1 80 mL 01/18/24 11/21/24 Rx suspension potassium chloride 20 mEq 20 meq PO TID #90 tabs 06/0611/21/24 Rx tablet,extended release ibuprofen 600 mg tablet 600 mg PO Q6H PRN PRN pain # 20 08/18/24 11/21/24 Rx TABLETS promethazine 25 mg rectal 25 mg IN Q6H PRN nausea and 08/18/24 11/21/24 Rx suppository vomiting #6 ea tramadol 50 mg tablet 50 mg PO Q6H PRN pain #15 ta bs 08/18/24 11/21/24 Rx Central Venous Access Central Venous Access: Yes Port/PICC: Port (right) I personally reviewed patient CT scan images of November 2024 and concur with reported findings Exam Physical Exam Narrative ECOG 1 Const alert, oriented x3 and no apparent distress Coding Level of Care Code Off vis,est,level 5 Exam Problem Focused Diagnoses Malignant neoplasm of overlapping sites of left breast in female, estrogen receptor positive C50.812; Z17.0 Liver metastases C78.7 Bone metastases C79.51 Carcinoma of left breast metastatic to axillary lymph node C50.912; C77.3 Laterality: left Malignant neoplasm of right kidney, except renal pelvis C64.1 Anemia due to antineoplastic chemotherapy D64.81; T45.1X5A Anemia type: other cause Other causes of anemia: antineoplastic chemotherapy Iron deficiency anemia due to chronic blood loss D50.0 Assessment and Plan Assessment and Plan (1) Malignant neoplasm of overlapping sites of left breast in female, estrogen receptor positive: Status: Chronic (2) Liver metastases: Status: Chronic (3) Bone metastases: Status: Chronic (4) Breast cancer metastasized to axillary lymph node: Status: Chronic Qualifiers: Laterality: left Qualified Code(s): C50.912 - Malignant neoplasm of unspecified site of left female breast; C77.3 - Secondary and unspecified 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 (5) Malignant neoplasm of right kidney, except renal pelvis: Status: Chronic (6) Anemia: Status: Chronic Qualifiers: Anemia type: other cause Other causes of anemia: antineoplastic chemotherapy Qualified Code(s): D64.81 - Anemia due to antineoplastic chemotherapy; T45.1X5A - Adverse effect of antineoplastic and immunosuppressive drugs, initial encounter (7) Iron deficiency anemia due to chronic blood loss: Status: Chronic Plan 54-year-old female with #1- 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 Patient is status post chemotherapy?(Adriamycin Cytoxan followed by Taxol 2015),?hormonal therapy (2015?2018)?and systemic chemotherapy with?capecitabine March 2019-April 2022.? ? She has been on bone supportive therapy with Zometa every 3 months and received palliative radiation to the right seventh ribin May 2018. She tolerated capecitabine with main toxicities experienced being GI (nausea, diarrhea, hypokalemia) and skin (palmar plantar erythrodysesthesia). An upward trend in tumor marker CA 27-29 noted March 2022 continued and progressive disease in the liver confirmed by imaging in April 2022. Started systemic therapy with TDX-d (Enhertu: Anti-HER2;?Antineoplastic Agent, Antibody Drug Conjugate;) [?N Engl J Med. 2020;382(7):610. Ep2018Apr 26.?} June 11, 2022, Tolerated with no grade 3 or 4 toxicities and remained in a stable partial remission of her disease until October 2023 when she had evidence of disease progression (slowly rising marker, relapsing lesion in the liver on CT). 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 Based on the findings from next generation sequence of November 2023 she started further hormonal therapy with Faslodex capivasertib end of November 2023, due to skin reaction and mucositis capivasertib dose was reduced to 320 mg twice daily 4 days on then 3 days rest and has tolerated treatment with no recurrent toxicities. Imaging by CT scan April 2024 show no measurable recurrent disease in the chest and liver. Subtle asymptomatic changes on the bone scan of April 2024 may represent early asymptomatic progression of the disease. She remained clinically stable and her marker is hovering in the 70s range. Therefore, she continued systemic treatment with Faslodex and capivasertib. However, follow-up imaging July 2024 showed definite progression in the liver and bones. Hormonal therapy was discontinued. August 2024 she was switched to Trodelvy (Sacituzumab, govitecan), following 4 cycles of therapy imaging in November 2024 showed progression of disease. 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 Plan:?Based on NCCN guidelines and up-to-date review of treatment of HR positive HER2/adry low hormone refractory metastatic breast cancer: 1- Next line of therapy with Datopotamab. Continue supportive treatment including growth factor since the patient has been extensively pretreated and has bone and bone marrow metastatic disease Discussed potential toxicities and specifically infusion reactions and eye toxicities. She will have a visit with ophthalmology prior to starting therapy to establish a baseline. 2-Continue bone supportive therapy with Zometa every 12 weeks. 4-Elective imaging with CT chest abdomen and pelvis and bone scan every 3 months; next to schedule in the last week of November 2024 4-anemia of cancer and chemotherapy plus iron deficiency improved following IV iron. 5-tumor marker with every cycle. Patient was seen .? Impression and recommendations as above outlined discussed. Oilvia Castillo MD Bundle Cutter, [facility] Divisions of Medical Oncology & Hematology Department of Internal Medicine [place] [phone] This note was generated using a voice recognition system software. Although it was reviewed by the author prior to finalization, it may still contain incorrect words, spelling, and punctuation that were not noted when reviewing prior to saving. If a clinically significant typo or inaccurately typed phrase is noted, please notify the author. 11/21/24 1108 <Electronically signed by Olivia humphreys MD> Date _ Olivia Castillo MD Cosigner Signature: Date (if applicable) CC: Dr. Philly Garcia MD ~ [facility] Work Phone: Progress note Author Olivia Castillo [facility] Note Date/Time February 01, 2025 1:33pm [facility] [place] [address] OFFICE VISIT Date of Service: 02/01/25 1309 MR#: [id number] Acct: [id number] Name: GRACIELA HAYWOOD Rep #: [id number] : 1970 From: Olivia morton MD Age/Sex: 55/F [place] [facility] [place] Signed HPI Subjective Date of Service 02/01/25 Chief Complaint Breast cancer on treatment History of Present Illness 54-year-old female with metastatic breast cancer seen in second opinion November 2021. Her initial care had been at [facility] under the care of , switching to [facility] November 2021. #1-Left breast cancer, stage IV at presentation in 2015, ER positive (over 95% moderate), IN positive (27%, weak) and HER2 1+, that presented with a palpable lump in the left breast and staging revealed multiple bone metastases, liver metastases, and a right lung nodule. Patient received Adriamycin Cytoxan followed by Taxol and then underwent surgical debulking with left mastectomy, sentinel lymph node biopsy and a prophylactic right mastectomy in February 2016. At the same time she underwent laparoscopic bilateral salpingo-oophorectomy. Pathology February 2016 revealed multifocal residual invasive ductal cancer, metastatic cancer was found in 2 of 5 lymph nodes in addition to a single tumor deposit within the axillary fat. Following surgery patient received hormonal therapy (see below for summary) from 2015 through 2018. After progression on hormonal therapy she has been on single agent capecitabine since March 2019 with stable disease. December 08, 2021 CT chest abdomen and pelvis: IMPRESSION: Small cysts in both lobes of the liver. Small cyst in the left kidney. Almost complete collapse of the T6 vertebrae. December 12, 2021 bone scan: IMPRESSION: Normal whole body nuclear bone scan. ? May 04, 2022 bone scan: IMPRESSION: 1. The increase in radiotracer concentration defined in the right anterior-posterior first rib is commensurate with trauma-fracture.? Plain film radiography correlation may be of benefit. 2.? Degenerative arthrosis is defined in the bilateral shoulders, the right knee, the second lumbar vertebra. 3.? Overall compared to the previous whole body bone scintigraphy study dated 12/12/2021, there is no significant interval change.? No definitive scintigraphic evidence of diffuse axial skeletal metastatic disease is apparent on the current examination. May 08, 2022 CT chest abdomen and pelvis: ABDOMEN There is a 2 cm x 2.1 cm hypodense nodule in the posterior aspect of the right dome of the liver.? A metastatic deposit should be ruled out.? Tiny cysts are also seen and these are unchanged.? Normal gallbladder and extrahepatic biliary system.? Normal spleen.? Normal pancreas. September 17, [address]: IMPRESSION: Interval mild regression of hypoechoic lesion dome of right lobe liver. Otherwise stable interval examination without other evidence of possible metastatic disease. No acute findings in the chest or abdomen. December 22, 2022 CT chest and abdomen: IMPRESSION: Interval decrease in size of the low-attenuation lesion in the dome of the right lobe of the liver. Stable hepatic cyst and left renal cysts. December 28, 2022 bone scan: IMPRESSION: 1. The increase in tracer uptake noted in the right first rib likely represents trauma-fracture. Uptake noted in the left proximal humeral metaphysis may be further investigated with plain film radiography. 2. Degenerative arthritis is defined in the right ankle, both shoulder articulations and right-left forefoot. 3. Overall compared to the previous whole body bone scintigraphy study dated 05/04/2022, there is minimal interval change, there is no definitive scintigraphic evidence of diffuse axial skeletal metastatic disease. Asymmetric uptake noted in the left proximal humerus on the current examination may be further assessed with plain film radiography as defined above. April 07, 2023 CT chest and abdomen: IMPRESSION: 1. Irregular low-attenuation lesion within the right hepatic lobe at the dome the liver, smaller since 05/08/2022 likely indicative of a treated metastasis. Other more well-defined low-attenuation foci within the liver have been unchanged and may be cysts although some of them are too small to further characterize. No new focal hepatic abnormality. 2. Left lower pole renal low-attenuation lesion with Hounsfield units of approximately 35-40 appears unchanged since at least 05/08/2022 and may be a complicated cyst rather than a solid lesion. 3. Mixed attenuation expansile lesion within the right first rib is nonspecific. This appears unchanged since 05/08/2022 and is indeterminate, perhaps a metastatic lesion. July 05, 2023 bone scan: IMPRESSION: 1. 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 2. 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 3. Overall compared to the previous whole body bone scintigraphy study dated 12/28/2022, there is apparent progression of defined viable osseous neoplastic disease. If flare phenomenon is a diagnostic consideration, repeat whole body bone scintigraphy in 12-16 weeks is recommended. July 08, 2023 CT chest abdomen and pelvis: IMPRESSION: CT chest: Possible pneumonitis within the right middle lobe, otherwise normal CT chest with no evidence of metastatic disease. CT abdomen/pelvis: Stable liver lesions as described. No new lesions in the interval. Low-attenuation structures within the left kidney, unchanged in the interval with no new cysts or renal lesions seen. No distinct lymphadenopathy or ascites. Possible descending colitis. November 04, 2023 CT chest abdomen and pelvis: ABDOMEN Stable 8.5 mm cyst in the anterior aspect of the left lobe of liver. There is evidence of a 2.9 cm x 2.2 cm area of heterogeneous enhancement in the dome of the liver just inferior to the right hemidiaphragm. This was not well-seen on prior image. Metastatic deposit should be ruled out. Normal gallbladder and extrahepatic biliary system. Normal spleen. Normal pancreas. Normal bilateral adrenal glands. Normal right kidney. Stable small left renal cysts. Normal visualized stomach. Normal small intestine. There is abnormal appearance of the colon with circumferential wall thickening and thickening ostial pattern. Colitis should be ruled out. There is non-visualization of the appendix. Normal abdominal aorta. Normal inferior vena cava. Normal retroperitoneum. Normal abdominal wall. Disc space narrowing at the L3-L4 level. IMPRESSION: Abnormal appearance of the dome of the right lobe of the liver. A metastatic deposit should be ruled out. There is circumferential wall thickening of the colon suggestive of colitis. Stable compression of the T8 vertebrae November 25, 2023 Next generation sequencing (liquid ) showed PIK3CA mutation, in addition to K-george G12 C, NF1 mutations. April 12, 2024 CT chest abdomen and pelvis: IMPRESSION: Hepatic lesions as described, relatively stable since the previous study. Relatively stable compression of T8. Bony lesion of L2 vertebral body with increase in size and sclerosis. Increasing sclerotic lesions of the sacrum and iliac bone at the left sacroiliac joint. April 17, 2024 bone scan: IMPRESSION: 1. The increase in radiopharmaceutical concentration defined in the left proximal humerus, the left sacroiliac joint, the first lumbar vertebra, the right posterior first rib and newly apparent in the right posterior inferior acetabulum is most consistent with skeletal metastatic disease. 2. Facilitated uptake noted in the first and second ribs anteriorly on the right at the costochondral junction is most consistent with an inflammatory process or trauma-fracture. Accentuated tracer noted in the bilateral proximal tibial metaphyses may be further investigated with plain film radiography secondary to the intensity of uptake. 3. 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 4. Overall compared to the previous bone scintigraphy study dated 07/05/2023, there is persistent demonstration of skeletal metastatic disease. August 07, 2024 CT Chest, Abd, Pel w/Contrast IMPRESSION: CT chest: 1. No evidence of thoracic metastatic disease. 2. Stable T8 vertebral body compression fracture deformity. CT abdomen pelvis: 1. Increased size of the hepatic dome mass, presumably hepatic metastatic disease. 2. Continued sclerosis of the L2 vertebral body and SI joints, likely secondary to chemotherapy regimen. If concern for osseous metastatic disease, bone scan could be obtained for further evaluation. 3. No additional new or enlarging abdominopelvic metastatic disease. August 10, 2024 bone scan: FINDINGS: 1. THE AREA OF INCREASED OSSEOUS UPTAKE IN THE VICINITY OF C7 BEST SEEN ON THE POSTERIOR IMAGES WAS NOT NOTED ON THE PREVIOUS STUDY, CONCERNING FOR METASTATIC DISEASE.. 2. OSSEOUS UPTAKE IN THE LEFT SACROILIAC JOINT IS STABLE. 3. OSSEOUS UPTAKE IN THE 1ST LUMBAR VERTEBRA, STABLE. 4. NEW AREAS OF INCREASED OSSEOUS UPTAKE ARE NOTED IN THE RIGHT 3RD THROUGH 5THRIBS, MOST LIKELY METASTATIC. 5. RIGHT POSTERIOR 1ST RIB OSSEOUS UPTAKE IS STABLE. 6. DEGENERATIVE ARTHRITIC CHANGE IN THE BILATERAL SHOULDERS, STABLE. 7. NO ABNORMAL OSSEOUS UPTAKE IN THE BILATERAL KNEES. August 18, 2024 CTA chest: Emergency room visit with abdominal pain IMPRESSION: No evidence of filling defect to suggest pulmonary embolism. Right port, mastectomies and osseous metastatic disease again noted. August 18, 2024 CT abdomen and pelvis: IMPRESSION: 1. Interval enlargement hepatic dome hypoenhancing mass, mild concerning for worsening metastasis. 2. Rectosigmoid wall thickening, submucosal hyperemia and soft tissue stranding,concerning for acute infectious proctocolitis. 3. Stable diffuse osseous metastasis August 28, 2024 thoracic spine MRI: FINDINGS: Vertebrae: T1, T3, and T12 vertebral body STIR hyperintense and T1 hypointense lesions. A few tiny lesions are scattered in the vertebral bodies. T8 vertebral body fracture. Partially visualized L2 abnormalsignal. Alignment: Normal. No spondylolisthesis. Spinal Cord: Thoracic spinal cord is of normal size and signal intensities. No thoracic spinal cord lesions are identified. Multilevel perineural cysts. Disc spaces: Mild multilevel thoracic degenerative changes without central canalstenosis. Paraspinal Tissues: Mild paraspinous muscle fatty infiltration. Postcontrast images: Enhancement of the vertebral body lesions.. IMPRESSION: Dominant enhancing lesions, likely metastases, at T1, T3, and T12 vertebral bodies. Smaller lesions are noted in the T4 and L1 vertebral bodies. T8 vertebral body fracture redemonstrated. November 20, 2024 CT chest abdomen and pelvis: IMPRESSION: 1. Progression of hepatic and skeletal metastatic disease #2-right kidney clear cell carcinoma, incidental finding on imaging for metastatic breast cancer status post right partial nephrectomy February 2017. 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 Breast cancer treatment summary and response: * Systemic therapy: 1-AC followed by T 2015. 2- Hormonal therapy, anastrozole 2015?2017. 3- Hormonal therapy, fulvestrant with palbociclib October 2017?January 2018 a short trial but had progressive disease. 4- Hormonal therapy, exemestane and everolimus January 2018?March 2019 discontinued due to severe mucositis despite dose reduction. 5- Capecitabine March 2019-April 2022, main toxicity encountered was skin and GI, dose reduced by summer 2021 to 1000 mg in a.m. and 500 mg p.m. 2 weeks on 1 week off. Was in partial remission then progressed. 6-TDX-d (Enhertu) June 11, 2022-October 21, 2023: IN then progressive disease 7-TDM 1 (Kadcyla) was denied by insurance 8- capivasertib/fulvestrant December 13, 2023-July 2024 (capivasertinib dose reduction due to skin rash and mucositis); stable disease?then progression. 9- Trodelvy (Sacituzumab govitecan) September 07-November 16, 2024 (4 cycles) progressive disease 10-Taxotere December 21, 2024 * Left mastectomy with sentinel lymph node biopsy and prophylactic right mastectomy February 2016. Laparoscopic bilateral salpingo-oophorectomy February 2016. * Zometa every 3 months * Palliative radiation to right seventh rib May 2018 [facility] Medical History Encounter for chemotherapy management Central line complication Drug induced neutropenia Drug-induced skin rash Encounter for monitoring cardiotoxic drug therapy CINV (chemotherapy-induced nausea and vomiting) Encounter for education Iron deficiency anemia due to chronic blood loss Anemia Hypokalemia Lung nodule Kidney tumor Surgical History History of oophorectomy History of hysterectomy S/P mastectomy, bilateral Family History Grandfather Cancer Bone Heart disease Social History Smoking Status: Never smoker alcohol intake: never Intake Vital Signs 12/21/24 07:58 02/01/25 13:10 02/01/25 13:13 Height 5 ft 5 in 5 ft 5 in 5 ft 5 in Weight: 54.148 kg BMI 19.8 BP 112/75 Blood Pressure Location Lt brachial Position Sitting Respiration 18 Pulse 71 Pulse Source Monitor Temp 99.2 F H Temperature Source Temporal Artery Pulse Oximetry (%) 97 Oxygen Delivery Method room air Intake Is patient in pain?: No Allergies oxycodone (From Percocet) Allergy (Verified 02/01/25 13:12) Vomiting Medications 3 ?Medication ?Instructions ?Recorded ?Confirmed ?Type ondansetron 8 mg disintegrating 8 mg PO Q8H PRN nausea and 06/10/22 02/01/25 Rx tablet vomiting #30 tabs prochlorperazine maleate 10 mg 10 mg PO Q6H PRN nausea and 01/21/23 02/01/25 Rx tablet vomiting #30 tabs MAGIC MOUTH WASH (BMX) 180 mL 10 ml PO .4h PRN pain #1 80 mL 01/18/24 02/01/25 Rx suspension potassium chloride 20 mEq 20 meq PO TID #90 tabs 06/0602/01/25 Rx tablet,extended release ibuprofen 600 mg tablet 600 mg PO Q6H PRN PRN pain # 20 08/18/24 02/01/25 Rx TABLETS promethazine 25 mg rectal 25 mg IN Q6H PRN nausea and 08/18/24 02/01/25 Rx suppository vomiting #6 ea tramadol 50 mg tablet 50 mg PO Q6H PRN pain #15 ta bs 08/18/24 02/01/25 Rx dexamethasone 4 mg tablet 8 mg (2 x 4 mg) PO BID 3 day s #60 11/27/24 02/01/25 Rx tabs Have you fallen in the past year?: No Central Venous Access Central Venous Access: Yes Port/PICC: Port Laboratory Tests 12/08/21 12/29/21 01/22/22 06:25 15:30 15:38 CA 27-29 16.6 15.3 25.7 02/16/22 03/26/22 04/16/22 15:30 15:25 15:22 CA 27-29 21.9 39.3 H 48.0 H 05/19/22 06/11/22 07/02/22 15:15 11:26 13:29 CA 27-29 45.9 H 48.4 H 51.0 H 07/23/22 08/13/22 09/03/22 13:20 13:28 13:30 CA 27-29 52.4 H 49.1 H 51.9 H 09/24/22 12/10/22 12/31/22 13:30 13:25 11:15 CA 27-29 39.3 H 34.8 43.8 H 01/21/23 03/04/23 04/15/23 13:05 13:40 13:29 CA 27-29 43.7 H 38.3 44.0 H 06/17/23 07/29/23 08/19/23 13:05 12:35 12:32 CA 27-29 49.6 H 54.9 H 52.5 H 09/30/23 11/11/23 01/10/24 12:40 10:00 14:57 CA 27-29 61.7 H 78.7 H 79.1 H 02/07/24 03/06/24 04/03/24 13:56 14:42 14:49 CA 27-29 85.7 H 71.4 H 72.5 H 05/03/24 05/29/24 06/26/24 07:58 14:20 14:38 CA 27-29 75.9 H 105.1 H 107.6 H 07/24/24 09/07/24 10/19/24 14:45 08: 09: CA 27-29 121.8 H 331.8 H 303.8 H 12/21/24 07:39 CA 27-29 445.3 H Exam Physical Exam Narrative ECOG 1 Const alert, oriented x3, no apparent distress and average body habitus General Appearance: cooperative, comfortable and well kempt HEENT normocephalic Head and Scalp: normal to inspection Face and Sinus: normal facial exam Mouth: oral and palatal mucosa normal Eyes General Eye: normal appearance of both eyes Neck no lymphadenopathy and no JVD Lymph Lymphatic: no lymphadenopathy noted Chest Chest: symmetrical chest wall rise and vascular access Resp clear to auscultation bilaterally Cardio regular rate and regular rhythm Jugular Venous Distention: Negative for JVD GI soft to palpation, non-tender and non-distended; Negative for hepatosplenomegaly no CVA tenderness Back/Spine no thoracic nor lumbar tenderness Extremity no clubbing, cyanosis or edema Skin General Skin Exam: no breakdown, atrophy, dry skin, erythema, turgor decreased and other Skin of palms and soles, no open sores ; Negative for elasticity normal Neuro oriented x3, CN's II-XII intact bilaterally, moves all extremities and no focal motor deficits Coordination / Balance: [id number] test normal Speech: speech normal Gait (Neuro): normal gait Psych mental status grossly normal Coding Level of Care Code Off vis,est,level 4 Exam Problem Focused Diagnoses Malignant neoplasm of overlapping sites of left breast in female, estrogen receptor positive C50.812; Z17.0 Liver metastases C78.7 Bone metastases C79.51 Carcinoma of left breast metastatic to axillary lymph node C50.912; C77.3 Laterality: left Malignant neoplasm of right kidney, except renal pelvis C64.1 Anemia due to antineoplastic chemotherapy D64.81; T45.1X5A Anemia type: other cause Other causes of anemia: antineoplastic chemotherapy Iron deficiency anemia due to chronic blood loss D50.0 Assessment and Plan Assessment and Plan (1) Malignant neoplasm of overlapping sites of left breast in female, estrogen receptor positive: Status: Chronic (2) Liver metastases: Status: Chronic (3) Bone metastases: Status: Chronic (4) Breast cancer metastasized to axillary lymph node: Status: Chronic Qualifiers: Laterality: left Qualified Code(s): C50.912 - Malignant neoplasm of unspecified site of left female breast; C77.3 - Secondary and unspecified 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 (5) Malignant neoplasm of right kidney, except renal pelvis: Status: Chronic (6) Anemia: Status: Chronic Qualifiers: Anemia type: other cause Other causes of anemia: antineoplastic chemotherapy Qualified Code(s): D64.81 - Anemia due to antineoplastic chemotherapy; T45.1X5A - Adverse effect of antineoplastic and immunosuppressive drugs, initial encounter (7) Iron deficiency anemia due to chronic blood loss: Status: Chronic Plan 54-year-old female with #1- 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 Patient is status post chemotherapy?(Adriamycin Cytoxan followed by Taxol 2015),?hormonal therapy (2015?2018)?and systemic chemotherapy with?capecitabine March 2019-April 2022.? ? She has been on bone supportive therapy with Zometa every 3 months and received palliative radiation to the right seventh ribin May 2018. She tolerated capecitabine with main toxicities experienced being GI (nausea, diarrhea, hypokalemia) and skin (palmar plantar erythrodysesthesia). An upward trend in tumor marker CA 27-29 noted March 2022 continued and progressive disease in the liver confirmed by imaging in April 2022. Started systemic therapy with TDX-d (Enhertu: Anti-HER2;?Antineoplastic Agent, Antibody Drug Conjugate;) [?N Engl J Med. 2020;382(7):610. Ep2018Apr 26.?} June 11, 2022, Tolerated with no grade 3 or 4 toxicities and remained in a stable partial remission of her disease until October 2023 when she had evidence of disease progression (slowly rising marker, relapsing lesion in the liver on CT). 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 Based on the findings from next generation sequence of November 2023 she started further hormonal therapy with Faslodex capivasertib end of November 2023, due to skin reaction and mucositis capivasertib dose was reduced to 320 mg twice daily 4 days on then 3 days rest and has tolerated treatment with no recurrent toxicities. Imaging by CT scan April 2024 show no measurable recurrent disease in the chest and liver. Subtle asymptomatic changes on the bone scan of April 2024 may represent early asymptomatic progression of the disease. She remained clinically stable and her marker is hovering in the 70s range. Therefore, she continued systemic treatment with Faslodex and capivasertib. However, follow-up imaging July 2024 showed definite progression in the liver and bones. Hormonal therapy was discontinued. August 2024 she was switched to Trodelvy (Sacituzumab, govitecan), following 4 cycles of therapy imaging in November 2024 showed progression of disease. December 22, 2023 started systemic therapy with Taxotere, elected for the every 3- week schedule for convenience with work schedule. 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 2-Continue bone supportive therapy with Zometa every 12 weeks. 4-Elective imaging with CT chest abdomen and pelvis and bone scan every 3-4 months; next to schedule mid March 2025 4-anemia of cancer and chemotherapy plus iron deficiency improved following IV iron. 5-tumor marker with every cycle. Patient was seen .? Impression and recommendations as above outlined discussed. Olivia Castillo MD Bundle Cutter, [facility] Divisions of Medical Oncology & Hematology Department of Internal Medicine [place] [phone] This note was generated using a voice recognition system software. Although it was reviewed by the author prior to finalization, it may still contain incorrect words, spelling, and punctuation that were not noted when reviewing prior to saving. If a clinically significant typo or inaccurately typed phrase is noted, please notify the author. Clinical Quality Measures Falls Risk Screening/Assistive Devices Have you fallen in the past year?: No 02/01/25 5253 <Electronically signed by Olivia humphreys MD> Date _ Olivia Castillo MD Cosigner Signature: Date (if applicable) CC: ~ [facility] Work Phone: Progress note Author Olivia Castillo [facility] Note Date/Time February 22, 2025 2: 01pm [facility] [place] [address] [place] [address] OFFICE VISIT Date of Service: 02/22/25 1342 MR#: [id number] Acct: [id number] Name: GRACIELA HAYWOOD Rep #: [id number] : 1970 From: Olivia morton MD Age/Sex: 55/F Location: [facility] [place] Status: Signed HPI Subjective Date of Service 02/22/25 Chief Complaint Breast cancer on treatment History of Present Illness 54-year-old female with metastatic breast cancer seen in second opinion November 2021. Her initial care had been at [facility] under the care of , switching to [facility] November 2021. #1-Left breast cancer, stage IV at presentation in 2015, ER positive (over 95% moderate), IN positive (27%, weak) and HER2 1+, that presented with a palpable lump in the left breast and staging revealed multiple bone metastases, liver metastases, and a right lung nodule. Patient received Adriamycin Cytoxan followed by Taxol and then underwent surgical debulking with left mastectomy, sentinel lymph node biopsy and a prophylactic right mastectomy in February 2016. At the same time she underwent laparoscopic bilateral salpingo-oophorectomy. Pathology February 2016 revealed multifocal residual invasive ductal cancer, metastatic cancer was found in 2 of 5 lymph nodes in addition to a single tumor deposit within the axillary fat. Following surgery patient received hormonal therapy (see below for summary) from 2015 through 2018. After progression on hormonal therapy she has been on single agent capecitabine since March 2019 with stable disease. December 08, 2021 CT chest abdomen and pelvis: IMPRESSION: Small cysts in both lobes of the liver. Small cyst in the left kidney. Almost complete collapse of the T6 vertebrae. December 12, 2021 bone scan: IMPRESSION: Normal whole body nuclear bone scan. ? May 04, 2022 bone scan: IMPRESSION: 1. The increase in radiotracer concentration defined in the right anterior-posterior first rib is commensurate with trauma-fracture.? Plain film radiography correlation may be of benefit. 2.? Degenerative arthrosis is defined in the bilateral shoulders, the right knee, the second lumbar vertebra. 3.? Overall compared to the previous whole body bone scintigraphy study dated 12/12/2021, there is no significant interval change.? No definitive scintigraphic evidence of diffuse axial skeletal metastatic disease is apparent on the current examination. May 08, 2022 CT chest abdomen and pelvis: ABDOMEN There is a 2 cm x 2.1 cm hypodense nodule in the posterior aspect of the right dome of the liver.? A metastatic deposit should be ruled out.? Tiny cysts are also seen and these are unchanged.? Normal gallbladder and extrahepatic biliary system.? Normal spleen.? Normal pancreas. September 17, [address]: IMPRESSION: Interval mild regression of hypoechoic lesion dome of right lobe liver. Otherwise stable interval examination without other evidence of possible metastatic disease. No acute findings in the chest or abdomen. December 22, 2022 CT chest and abdomen: IMPRESSION: Interval decrease in size of the low-attenuation lesion in the dome of the right lobe of the liver. Stable hepatic cyst and left renal cysts. December 28, 2022 bone scan: IMPRESSION: 1. The increase in tracer uptake noted in the right first rib likely represents trauma-fracture. Uptake noted in the left proximal humeral metaphysis may be further investigated with plain film radiography. 2. Degenerative arthritis is defined in the right ankle, both shoulder articulations and right-left forefoot. 3. Overall compared to the previous whole body bone scintigraphy study dated 05/04/2022, there is minimal interval change, there is no definitive scintigraphic evidence of diffuse axial skeletal metastatic disease. Asymmetric uptake noted in the left proximal humerus on the current examination may be further assessed with plain film radiography as defined above. April 07, 2023 CT chest and abdomen: IMPRESSION: 1. Irregular low-attenuation lesion within the right hepatic lobe at the dome the liver, smaller since 05/08/2022 likely indicative of a treated metastasis. Other more well-defined low-attenuation foci within the liver have been unchanged and may be cysts although some of them are too small to further characterize. No new focal hepatic abnormality. 2. Left lower pole renal low-attenuation lesion with Hounsfield units of approximately 35-40 appears unchanged since at least 05/08/2022 and may be a complicated cyst rather than a solid lesion. 3. Mixed attenuation expansile lesion within the right first rib is nonspecific. This appears unchanged since 05/08/2022 and is indeterminate, perhaps a metastatic lesion. July 05, 2023 bone scan: IMPRESSION: 1. 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 2. 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 3. Overall compared to the previous whole body bone scintigraphy study dated 12/28/2022, there is apparent progression of defined viable osseous neoplastic disease. If flare phenomenon is a diagnostic consideration, repeat whole body bone scintigraphy in 12-16 weeks is recommended. July 08, 2023 CT chest abdomen and pelvis: IMPRESSION: CT chest: Possible pneumonitis within the right middle lobe, otherwise normal CT chest with no evidence of metastatic disease. CT abdomen/pelvis: Stable liver lesions as described. No new lesions in the interval. Low-attenuation structures within the left kidney, unchanged in the interval with no new cysts or renal lesions seen. No distinct lymphadenopathy or ascites. Possible descending colitis. November 04, 2023 CT chest abdomen and pelvis: ABDOMEN Stable 8.5 mm cyst in the anterior aspect of the left lobe of liver. There is evidence of a 2.9 cm x 2.2 cm area of heterogeneous enhancement in the dome of the liver just inferior to the right hemidiaphragm. This was not well-seen on prior image. Metastatic deposit should be ruled out. Normal gallbladder and extrahepatic biliary system. Normal spleen. Normal pancreas. Normal bilateral adrenal glands. Normal right kidney. Stable small left renal cysts. Normal visualized stomach. Normal small intestine. There is abnormal appearance of the colon with circumferential wall thickening and thickening ostial pattern. Colitis should be ruled out. There is non-visualization of the appendix. Normal abdominal aorta. Normal inferior vena cava. Normal retroperitoneum. Normal abdominal wall. Disc space narrowing at the L3-L4 level. IMPRESSION: Abnormal appearance of the dome of the right lobe of the liver. A metastatic deposit should be ruled out. There is circumferential wall thickening of the colon suggestive of colitis. Stable compression of the T8 vertebrae November 25, 2023 Next generation sequencing (liquid ) showed PIK3CA mutation, in addition to K-george G12 C, NF1 mutations. April 12, 2024 CT chest abdomen and pelvis: IMPRESSION: Hepatic lesions as described, relatively stable since the previous study. Relatively stable compression of T8. Bony lesion of L2 vertebral body with increase in size and sclerosis. Increasing sclerotic lesions of the sacrum and iliac bone at the left sacroiliac joint. April 17, 2024 bone scan: IMPRESSION: 1. The increase in radiopharmaceutical concentration defined in the left proximal humerus, the left sacroiliac joint, the first lumbar vertebra, the right posterior first rib and newly apparent in the right posterior inferior acetabulum is most consistent with skeletal metastatic disease. 2. Facilitated uptake noted in the first and second ribs anteriorly on the right at the costochondral junction is most consistent with an inflammatory process or trauma-fracture. Accentuated tracer noted in the bilateral proximal tibial metaphyses may be further investigated with plain film radiography secondary to the intensity of uptake. 3. 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 4. Overall compared to the previous bone scintigraphy study dated 07/05/2023, there is persistent demonstration of skeletal metastatic disease. August 07, 2024 CT Chest, Abd, Pel w/Contrast IMPRESSION: CT chest: 1. No evidence of thoracic metastatic disease. 2. Stable T8 vertebral body compression fracture deformity. CT abdomen pelvis: 1. Increased size of the hepatic dome mass, presumably hepatic metastatic disease. 2. Continued sclerosis of the L2 vertebral body and SI joints, likely secondary to chemotherapy regimen. If concern for osseous metastatic disease, bone scan could be obtained for further evaluation. 3. No additional new or enlarging abdominopelvic metastatic disease. August 10, 2024 bone scan: FINDINGS: 1. THE AREA OF INCREASED OSSEOUS UPTAKE IN THE VICINITY OF C7 BEST SEEN ON THE POSTERIOR IMAGES WAS NOT NOTED ON THE PREVIOUS STUDY, CONCERNING FOR METASTATIC DISEASE.. 2. OSSEOUS UPTAKE IN THE LEFT SACROILIAC JOINT IS STABLE. 3. OSSEOUS UPTAKE IN THE 1ST LUMBAR VERTEBRA, STABLE. 4. NEW AREAS OF INCREASED OSSEOUS UPTAKE ARE NOTED IN THE RIGHT 3RD THROUGH 5THRIBS, MOST LIKELY METASTATIC. 5. RIGHT POSTERIOR 1ST RIB OSSEOUS UPTAKE IS STABLE. 6. DEGENERATIVE ARTHRITIC CHANGE IN THE BILATERAL SHOULDERS, STABLE. 7. NO ABNORMAL OSSEOUS UPTAKE IN THE BILATERAL KNEES. August 18, 2024 CTA chest: Emergency room visit with abdominal pain IMPRESSION: No evidence of filling defect to suggest pulmonary embolism. Right port, mastectomies and osseous metastatic disease again noted. August 18, 2024 CT abdomen and pelvis: IMPRESSION: 1. Interval enlargement hepatic dome hypoenhancing mass, mild concerning for worsening metastasis. 2. Rectosigmoid wall thickening, submucosal hyperemia and soft tissue stranding,concerning for acute infectious proctocolitis. 3. Stable diffuse osseous metastasis August 28, 2024 thoracic spine MRI: FINDINGS: Vertebrae: T1, T3, and T12 vertebral body STIR hyperintense and T1 hypointense lesions. A few tiny lesions are scattered in the vertebral bodies. T8 vertebral body fracture. Partially visualized L2 abnormalsignal. Alignment: Normal. No spondylolisthesis. Spinal Cord: Thoracic spinal cord is of normal size and signal intensities. No thoracic spinal cord lesions are identified. Multilevel perineural cysts. Disc spaces: Mild multilevel thoracic degenerative changes without central canalstenosis. Paraspinal Tissues: Mild paraspinous muscle fatty infiltration. Postcontrast images: Enhancement of the vertebral body lesions.. IMPRESSION: Dominant enhancing lesions, likely metastases, at T1, T3, and T12 vertebral bodies. Smaller lesions are noted in the T4 and L1 vertebral bodies. T8 vertebral body fracture redemonstrated. November 20, 2024 CT chest abdomen and pelvis: IMPRESSION: 1. Progression of hepatic and skeletal metastatic disease #2-right kidney clear cell carcinoma, incidental finding on imaging for metastatic breast cancer status post right partial nephrectomy February 2017. 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 Breast cancer treatment summary and response: * Systemic therapy: 1-AC followed by T 2015. 2- Hormonal therapy, anastrozole 2015?2017. 3- Hormonal therapy, fulvestrant with palbociclib October 2017?January 2018 a short trial but had progressive disease. 4- Hormonal therapy, exemestane and everolimus January 2018?March 2019 discontinued due to severe mucositis despite dose reduction. 5- Capecitabine March 2019-April 2022, main toxicity encountered was skin and GI, dose reduced by summer 2021 to 1000 mg in a.m. and 500 mg p.m. 2 weeks on 1 week off. Was in partial remission then progressed. 6-TDX-d (Enhertu) June 11, 2022-October 21, 2023: IN then progressive disease 7-TDM 1 (Kadcyla) was denied by insurance 8- capivasertib/fulvestrant December 13, 2023-July 2024 (capivasertinib dose reduction due to skin rash and mucositis); stable disease?then progression. 9- Trodelvy (Sacituzumab govitecan) September 07-November 16, 2024 (4 cycles) progressive disease 10-Taxotere December 21, 2024 * Left mastectomy with sentinel lymph node biopsy and prophylactic right mastectomy February 2016. Laparoscopic bilateral salpingo-oophorectomy February 2016. * Zometa every 3 months * Palliative radiation to right seventh rib May 2018 [facility] Medical History Encounter for chemotherapy management Central line complication Drug induced neutropenia Drug-induced skin rash Encounter for monitoring cardiotoxic drug therapy CINV (chemotherapy-induced nausea and vomiting) Encounter for education Iron deficiency anemia due to chronic blood loss Anemia Hypokalemia Lung nodule Kidney tumor Surgical History History of oophorectomy History of hysterectomy S/P mastectomy, bilateral Family History Grandfather Cancer Bone Heart disease Social History Smoking Status: Never smoker alcohol intake: never ROS Constitutional Constitutional: Reports systems reviewed and no addt'l complaints, except as documented and other Details: 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 ; Denies fatigue, fever(s) or weight loss Eyes Eyes: Reports systems reviewed and no addt'l complaints, except as documented and tearing; Denies change in vision ENT HEENT: Reports systems reviewed and no addt'l complaints, except as documented; Denies mucositis or nasal discharge Cardiovascular Cardiovascular: Reports systems reviewed and no addt'l complaints, except as documented; Denies chest pain with activity or edema Respiratory/Chest Respiratory/Chest: Reports systems reviewed and no addt'l complaints, except as documented; Denies cough or dyspnea on exertion Gastrointestinal Gastrointestinal: Reports systems reviewed and no addt'l complaints, except as documented and nausea; Denies diarrhea, hematochezia, melena or vomiting Genitourinary Genitourinary: Reports systems reviewed and no addt'l complaints, except as documented; Denies dysuria or hematuria Musculoskeletal Musculoskeletal: Reports systems reviewed and no addt'l complaints, except as documented, back pain and other Details: Back pain overall tolerable using OTC analgesics PRN Integumentary Integumentary: Reports systems reviewed and no addt'l complaints, except as documented and dry skin; Denies alopecia or rash Neurologic Neurologic: Reports systems reviewed and no addt'l complaints, except as documented; Denies focal weakness, headache(s) or paresthesias Psychiatric Psychiatric: Reports systems reviewed and no addt'l complaints, except as documented Endocrine Endocrinology: Reports systems reviewed and no addt'l complaints, except as documented Hematologic/Lymphatic Hematologic/Lymphatic: Reports systems reviewed and no addt'l complaints, exceptas documented; Denies easy bleeding or lymphadenopathy Allergic/Immunologic Allergic/Immunologic: Reports systems reviewed and no addt'l complaints, except as documented Intake Vital Signs 01/11/25 13:23 02/22/25 13:42 Height 5 ft 5 in 5 ft 5 in Weight: 54.204 kg BMI 19.8 BP 126/88 H Blood Pressure Location Lt brachial Position Sitting Respiration 16 Pulse 74 Pulse Source Monitor Temp 97.7 F L Temperature Source Temporal Artery Pulse Oximetry (%) 98 Oxygen Delivery Method room air Intake Allergies oxycodone (From Percocet) Allergy (Verified 02/22/25 13:44) Vomiting Medications ?Medication ?Instructions ?Recorded ?Confirmed ?Type ondansetron 8 mg disintegrating 8 mg PO Q8H PRN nausea and 06/10/22 02/22/25 Rx tablet vomiting #30 tabs prochlorperazine maleate 10 mg 10 mg PO Q6H PRN nausea and 01/21/23 02/22/25 Rx tablet vomiting #30 tabs MAGIC MOUTH WASH (BMX) 180 mL 10 ml PO .4h PRN pain #1 80 mL 01/18/24 02/22/25 Rx suspension ibuprofen 600 mg tablet 600 mg PO Q6H PRN PRN pain # 20 08/18/24 02/22/25 Rx TABLETS promethazine 25 mg rectal 25 mg IN Q6H PRN nausea and 08/18/24 02/22/25 Rx suppository vomiting #6 ea tramadol 50 mg tablet 50 mg PO Q6H PRN pain #15 ta bs 08/18/24 02/22/25 Rx dexamethasone 4 mg tablet 8 mg (2 x 4 mg) PO BID 3 day s #60 11/27/24 02/22/25 Rx tabs potassium chloride 20 mEq 20 meq PO TID #90 tabs 02/0602/22/25 Rx tablet,extended release Laboratory Tests 12/08/21 12/29/21 01/22/22 06:25 15:30 15:38 CA 27-29 16.6 15.3 25.7 02/16/22 03/26/22 04/16/22 15:30 15:25 15:22 CA 27-29 21.9 39.3 H 48.0 H 05/19/22 06/11/22 07/02/22 15:15 11:26 13:29 CA 27-29 45.9 H 48.4 H 51.0 H 07/23/22 08/13/22 09/03/22 13:20 13:28 13:30 CA 27-29 52.4 H 49.1 H 51.9 H 09/24/22 12/10/22 12/31/22 13:30 13:25 11:15 CA 27-29 39.3 H 34.8 43.8 H 01/21/23 03/04/23 04/15/23 13:05 13:40 13:29 CA 27-29 43.7 H 38.3 44.0 H 06/17/23 07/29/23 08/19/23 13:05 12:35 12:32 CA 27-29 49.6 H 54.9 H 52.5 H 09/30/23 11/11/23 01/10/24 12:40 10:00 14:57 CA 27-29 61.7 H 78.7 H 79.1 H 02/07/24 03/06/24 04/03/24 13:56 14:42 14:49 CA 27-29 85.7 H 71.4 H 72.5 H 05/03/24 05/29/24 06/26/24 07:58 14:20 14:38 CA 27-29 75.9 H 105.1 H 107.6 H 07/24/24 09/07/24 10/19/24 14:45 08:21 09:23 CA 27-29 121.8 H 331.8 H 303.8 H 12/21/24 02/01/25 07:39 12:49 CA 27-29 445.3 H 523.7 H Exam Physical Exam Narrative ECOG 1 Const alert, oriented x3, no apparent distress and average body habitus General Appearance: cooperative, comfortable and well kempt HEENT normocephalic Head and Scalp: normal to inspection Face and Sinus: normal facial exam Mouth: oral and palatal mucosa normal Eyes General Eye: normal appearance of both eyes Neck no lymphadenopathy and no JVD Lymph Lymphatic: no lymphadenopathy noted Chest Chest: symmetrical chest wall rise and vascular access Resp clear to auscultation bilaterally Cardio regular rate and regular rhythm Jugular Venous Distention: Negative for JVD GI soft to palpation, non-tender and non-distended; Negative for hepatosplenomegaly no CVA tenderness Back/Spine no thoracic nor lumbar tenderness Extremity no clubbing, cyanosis or edema Skin General Skin Exam: no breakdown, atrophy, dry skin, erythema, turgor decreased and other Skin of palms and soles, no open sores ; Negative for elasticity normal Neuro oriented x3, CN's II-XII intact bilaterally, moves all extremities and no focal motor deficits Coordination / Balance: [id number] test normal Speech: speech normal Gait (Neuro): normal gait Psych mental status grossly normal Coding Level of Care Code Off vis,est,level 4 Exam Problem Focused Diagnoses Malignant neoplasm of overlapping sites of left breast in female, estrogen receptor positive C50.812; Z17.0 Liver metastases C78.7 Bone metastases C79.51 Carcinoma of left breast metastatic to axillary lymph node C50.912; C77.3 Laterality: left Malignant neoplasm of right kidney, except renal pelvis C64.1 Anemia due to antineoplastic chemotherapy D64.81; T45.1X5A Anemia type: other cause Other causes of anemia: antineoplastic chemotherapy Iron deficiency anemia due to chronic blood loss D50.0 Assessment and Plan Assessment and Plan (1) Malignant neoplasm of overlapping sites of left breast in female, estrogen receptor positive: Status: Chronic (2) Liver metastases: Status: Chronic (3) Bone metastases: Status: Chronic (4) Breast cancer metastasized to axillary lymph node: Status: Chronic Qualifiers: Laterality: left Qualified Code(s): C50.912 - Malignant neoplasm of unspecified site of left female breast; C77.3 - Secondary and unspecified 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 (5) Malignant neoplasm of right kidney, except renal pelvis: Status: Chronic (6) Anemia: Status: Chronic Qualifiers: Anemia type: other cause Other causes of anemia: antineoplastic chemotherapy Qualified Code(s): D64.81 - Anemia due to antineoplastic chemotherapy; T45.1X5A - Adverse effect of antineoplastic and immunosuppressive drugs, initial encounter (7) Iron deficiency anemia due to chronic blood loss: Status: Chronic Plan 54-year-old female with #1- 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 Patient is status post chemotherapy?(Adriamycin Cytoxan followed by Taxol 2015),?hormonal therapy (2015?2018)?and systemic chemotherapy with?capecitabine March 2019-April 2022.? ? She has been on bone supportive therapy with Zometa every 3 months and received palliative radiation to the right seventh ribin May 2018. She tolerated capecitabine with main toxicities experienced being GI (nausea, diarrhea, hypokalemia) and skin (palmar plantar erythrodysesthesia). An upward trend in tumor marker CA 27-29 noted March 2022 continued and progressive disease in the liver confirmed by imaging in April 2022. Started systemic therapy with TDX-d (Enhertu: Anti-HER2;?Antineoplastic Agent, Antibody Drug Conjugate;) [?N Engl J Med. 2020;382(7):610. Ep2018Apr 26.?} June 11, 2022, Tolerated with no grade 3 or 4 toxicities and remained in a stable partial remission of her disease until October 2023 when she had evidence of disease progression (slowly rising marker, relapsing lesion in the liver on CT). 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 Based on the findings from next generation sequence of November 2023 she started further hormonal therapy with Faslodex capivasertib end of November 2023, due to skin reaction and mucositis capivasertib dose was reduced to 320 mg twice daily 4 days on then 3 days rest and has tolerated treatment with no recurrent toxicities. Imaging by CT scan April 2024 show no measurable recurrent disease in the chest and liver. Subtle asymptomatic changes on the bone scan of April 2024 may represent early asymptomatic progression of the disease. She remained clinically stable and her marker is hovering in the 70s range. Therefore, she continued systemic treatment with Faslodex and capivasertib. However, follow-up imaging July 2024 showed definite progression in the liver and bones. Hormonal therapy was discontinued. August 2024 she was switched to Trodelvy (Sacituzumab, govitecan), following 4 cycles of therapy imaging in November 2024 showed progression of disease. December 22, 2023 started systemic therapy with Taxotere, elected for the every 3- week schedule for convenience with work schedule. 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 2-Continue bone supportive therapy with Zometa every 12 weeks. 4-Elective imaging with CT chest abdomen and pelvis and bone scan every 3-4 months; next to schedule mid March 2025 4-anemia of cancer and chemotherapy plus iron deficiency improved following IV iron. Will update iron profile with upcoming blood work. 5-tumor marker with every cycle. Patient was seen .? Impression and recommendations as above outlined discussed. Olivia Castillo MD Bundle Cutter, [facility] Divisions of Medical Oncology & Hematology Department of Internal Medicine [place] [phone] This note was generated using a voice recognition system software. Although it was reviewed by the author prior to finalization, it may still contain incorrect words, spelling, and punctuation that were not noted when reviewing prior to saving. If a clinically significant typo or inaccurately typed phrase is noted, please notify the author. 02/22/25 140 <Electronically signed by Olivia humphreys MD> Date _ Olivia Meek Signature: Date (if applicable) CC: ~ [employer] Work Phone: Reason for referral (narrative)* Outpatient Procedure (Routine) - Closed Specialty Diagnoses / Procedures Referred By Dacia bullard Referred To Contact [facility] Diagnoses Encounter for screening for malignant neoplasm of colon Procedures COLONOSCOPY SCREENING COLONOSCOP W/ OR W/O [facility] SPEC Norma Renee PA-C [address] [place] [address] [place] [id number] Referral ID Status Reason Start Date Expiration Date V isits Requested Visits Authorized [id number] Closed Auto-Generate d Referral 05/08/2021 05/08/2022 1 1 [facility] for visit Narrative* Outpatient Procedure (Routine) - Closed Specialty Diagnoses / Procedures Referred By Dacia bullard Referred To Contact [facility] Diagnoses Encounter for screening for malignant neoplasm of colon Procedures COLONOSCOPY SCREENING COLONOSCOP W/ OR W/O BRS Norma Culp PA-C [address] [place] [address] [place] [address] Referral ID Status Reason Start Date Expiration Date V isits Requested Visits Authorized [id number] Closed Auto-Generate d Referral 05/08/2021 05/08/2022 1 1 [facility] Summary Purpose Family History No Family History Records Found Relationship Condition Age at Onset Recorded Date/T debra grandfather Malignant neoplasm Unknown Cardiac disease Unknown Advance Directives No Advanced Directives Records FoundDocuments on File Type Date Recorded Patient Stem Roller Expl anation Advance Directive(s) 08/25/2021 7:08 AM Advance Directive(s) 02/25/2016 10:40 AM Advance Directive(s) 09/17/2015 10:28 AM Documents on File Type Date Recorded Patient Stem Roller Expl anation Advance Directive(s) 08/25/2021 7:08 AM Advance Directive(s) 02/25/2016 10:40 AM Advance Directive(s) 09/17/2015 10:28 AM Advance Directive Response Recorded Date/ Time Advance Directives on File Yes Johan ry 2022 12:58pm Name of Medical Power of Training Development Director Abran Haywood June 11, 2022 12:58pm Advance Directives Yes June 11, 2022 12:58pm Living Will Yes June 11 12:58pm Power of Training Development Director Yes June 11, 2022 12:58pm Advance Directive Response Recorded Date/ Time Advance Directives on File Yes December 10, 2022 3:05pm Name of Medical Power of Training Development Director Abran Haywood December 10, 2022 3:05pm Advance Directives Yes December 10 3:05pm Living Will Yes December 10, 2022 3:05pm Power of Training Development Director Yes December 10 3:05pm Advance Directive Response Recorded Date/ Time Advance Directives on File Yes Radha t 2022 1:56pm Name of Medical Power of Training Development Director Abran Haywood December 31, 2022 1:56pm Advance Directives Yes December 31, 2022 1:56pm Living Will Yes December 31 1:56pm Power of Training Development Director Yes December 31 023 1:56pm Advance Directive Response Recorded Date/ Time Advance Directives on File Yes 2022 2:37pm Name of Medical Power of Training Development Director Abran Haywood March 25, 2023 2:37pm Advance Directives Yes March 25, 2023 2:37pm Living Will Yes March 25 2:37pm Power of Training Development Director Yes March 25, 2023 2:37pm Advance Directive Response Recorded Date/ Time Advance Directives on File Yes 2022 2:46pm Name of Medical Power of Training Development Director Abran Haywood April 15, 2023 2:46pm Advance Directives Yes March 2:46pm Living Will Yes April 15 023 2:46pm Power of Training Development Director Yes April 15, 2023 2:46pm Advance Directive Response Recorded Date/ Time Advance Directives on File Yes Av henson 2023 2:40pm Name of Medical Power of Training Development Director Abran Haywood July 08, 2023 2:40pm Advance Directives Yes June 2:40pm Living Will Yes July 08, 024 2:40pm Power of Training Development Director Yes July 08, 2023 2:40pm Advance Directive Response Recorded Date/ Time Living Will Yes March 06 4:30pm Do you have a Healthcare Power of Training Development Director? Yes March 06, 2024 4:30pm Advance Directives on File Yes 2024 5:02pm Living Will Yes June 26 025 5:02pm Do you have a Healthcare Power of Training Development Director? Yes June 26, 2024 5:02pm Name of Medical Power of Training Development Director Abran Haywood June 26, 2024 5:02pm Advance Directives Yes June 5:02pm Advance Directive Response Recorded Date/ Time Living Will Yes March 06 4:30pm Do you have a Healthcare Power of Training Development Director? Yes March 06, 2024 4:30pm Advance Directives on File Yes 2024 5:02pm Living Will Yes June 26 5:02pm Do you have a Healthcare Power of Training Development Director? Yes June 26, 2024 5:02pm Name of Medical Power of Training Development Director Abran Haywood June 26, 2024 5:02pm Advance Directives Yes June 5:02pm Living Will No August 18, 2024 6:05pm Do you have a Healthcare Power of Training Development Director? No August 18, 2024 6:05pm Advance Directive Response Recorded Date/ Time Advance Directives on File Yes September 142024 12:14pm Living Will Yes September 14, 2024 12 :14pm Do you have a Healthcare Power of Training Development Director? Yes September 14, 2024 12:14pm Name of Medical Power of Training Development Director Abran Haywood September 14, 2024 12:14pm Advance Directives Yes September 14, 2024 12:14pm Living Will No August 18, 2024 6:05pm Do you have a Healthcare Power of Training Development Director? No August 18, 2024 6:05pm Advance Directive Response Recorded Date/ Time Advance Directives on File Yes September 152024 12:42pm Living Will Yes October 05, 2024 1 2:42pm Do you have a Healthcare Power of Training Development Director? Yes October 05, 2024 12:42pm Name of Medical Power of Training Development Director Abran Haywood October 05, 2024 12:42pm Advance Directives Yes October 05 12:42pm Living Will No August 18, 2024 6:05pm Do you have a Healthcare Power of Training Development Director? No August 18, 2024 6:05pm Advance Directive Response Recorded Date/ Time Advance Directives on File Yes October 19, 2024 11:16am Living Will Yes October 19, 2024 1 1:16am Do you have a Healthcare Power of Training Development Director? Yes October 19, 2024 11:16am Name of Medical Power of Training Development Director Abran Haywood October 19, 2024 11:16am Advance Directives Yes October 19 11:16am Living Will No August 18, 2024 6:05pm Do you have a Healthcare Power of Training Development Director? No August 18, 2024 6:05pm Advance Directive Response Recorded Date/ Time Advance Directives on File Yes October 26, 2024 11:44am Living Will Yes October 26, 2024 11:44am Do you have a Healthcare Power of Training Development Director? Yes October 26, 2024 11:44am Name of Medical Power of Training Development Director Abran Haywood October 26, 2024 11:44am Advance Directives Yes October 26 11:44am Living Will No August 18, 2024 6:05pm Do you have a Healthcare Power of Training Development Director? No August 18, 2024 6:05pm Advance Directive Response Recorded Date/ Time Advance Directives on File Yes November 09, 2024 11:54am Living Will Yes November 09, 2024 11:54am Do you have a Healthcare Power of Training Development Director? Yes November 09, 2024 11:54am Name of Medical Power of Training Development Director Abran Haywood November 09, 2024 11:54am Advance Directives Yes November 09 11:54am Living Will No August 18, 2024 6:05pm Do you have a Healthcare Power of Training Development Director? No August 18, 2024 6:05pm Advance Directive Response Recorded Date/ Time Advance Directives on File Yes November 16, 2024 11:35am Living Will Yes November 16, 2024 1 1:35am Do you have a Healthcare Power of Training Development Director? Yes November 16, 2024 11:35am Name of Medical Power of Training Development Director Abran Haywood November 16, 2024 11:35am Advance Directives Yes November 16 11:35am Living Will No August 18, 2024 6:05pm Do you have a Healthcare Power of Training Development Director? No August 18, 2024 6:05pm Advance Directive Response Recorded Date/ Time Advance Directives on File Yes November 16, 2024 11:35am Living Will Yes November 16, 2024 1 1:35am Do you have a Healthcare Power of Training Development Director? Yes November 16, 2024 11:35am Name of Medical Power of Training Development Director Abran Haywood November 16, 2024 11:35am Advance Directives Yes November 16 11:35am Advance Directive Response Recorded Date/ Time Advance Directives on File Yes Decus 2024 9:24am Living Will Yes December 21, 2024 9:24am Do you have a Healthcare Power of Training Development Director? Yes December 21, 2024 9:24am Name of Medical Power of Training Development Director Abran Haywood December 21, 2024 9:24am Advance Directives Yes December 21 9:24am Advance Directive Response Recorded Date/ Time Advance Directives on File Yes Leonie mber 2024 1:50pm Living Will Yes February 01, 2025 1:50pm Do you have a Healthcare Pow er of Training Development Director? Yes February 01, 2025 1:50pm Name of Medical Power of Training Development Director Abran Haywood February 01, 2025 1:50pm Advance Directives Yes January 1:50pm Advance Directive Response Recorded Date/ Time Advance Directives on File Yes Octob er 2024 2:27pm Living Will Yes February 22 2:27pm Do you have a Healthcare Power of Training Development Director? Yes February 22, 2025 2:27pm Name of Medical Power of Training Development Director Abran Haywood February 22, 2025 2:27pm Advance Directives Yes February 22, 2025 2:27pm Medications Administered Section Inactive Administered Medications - up to 3 most recent administrations Medication Order MAR Action Action Date Dose Rate Site fentaNYL 50 mcg/mL 25-100 mcg injection (SUBLIMAZE) 25-100 mcg, INTRAVENOUS, DIRECTED, Starting on Wed08/25/21 at 0830, Until Wed08/25/21 at 1229, DOSING DIRECTED BY PHYSICIAN FOR PROCEDURAL SEDATION ONLY, Intraprocedure Given 08/25/2021 8:13 AM EDT 50 mcg Given 08/25/2021 8:07 AM EDT 50 mcg heparin 100 unit/mL 200-500 Units injection 200-500 Units, INTRAVENOUS, ONCE, 1 dose, On Wed08/25/21 at 0930 Given 08/25/2021 9:25 AM EDT 500 Units Port lactated ringers iv infusion 30 mL/hr, INTRAVENOUS, CONTINUOUS, Starting on Wed08/25/21 at 0800, Until Wed08/25/21 at 0841, Preprocedure New Bag/Syringe/Bottle 08/25/2021 8:29 AM EDT 30 mL/hr 30 mL/hr New Bag/Syringe/Bottle 08/25/2021 7:50 AM EDT 30 mL/hr 3 0 mL/hr midazolam (PF) 1-5 mg injection (VERSED) 1-5 mg, INTRAVENOUS, DIRECTED, Starting on Wed08/25/21 at 0830, Until Wed08/25/21 at 1229, DOSING DIRECTED BY PHYSICIAN FOR PROCEDURAL SEDATION ONLY, Intraprocedure Given 08/25/2021 8:09 AM EDT 2 mg Given 08/25/2021 8:07 AM EDT 3 mg ondansetron (PF) 4 mg injection (ZOFRAN) 4 mg, INTRAVENOUS, ONCE, 1 dose, On Wed08/25/21 at 0930, Give IV push over 2 minutes Given 08/25/2021 9:03 AM EDT 4 mg Inactive Administered Medications - up to 3 most recent administrations Medication Order MAR Action Action Date Dose Rate Site zoledronic vi-[id number]-9.9NaCl 4 mg iv piggyback 100 mL (ZOMETA) 4 mg, INTRAVENOUS, Administer over 15 Minutes, ONCE, 1 dose, On Wed10/27/21 at 1530, Hazardous Potential Reproductive Risk Drug: Use appropriate PPE. New Bag/Syringe/Bottle 10/27/2021 3:11 PM EDT 4 mg Chief Complaint and Reason for Visit Chief Complaint TRANSFER CARE-BREAST CA BREAST CANCER *IV ONLY* Reason for Visit Bone metastases Breast cancer metastasized to axillary lymph node Hypokalemia Liver metastases Lung nodule [id number] Malignant neoplasm of right kidney, except renal pelvis Chief Complaint TRANSFER CARE-BREAST CA BREAST CANCER *IV ONLY* BREAST CANCER F/U - REVEIW CT/BONE SCAN - DOING LABS WITH CT Reason for Visit Bone metastases Breast cancer metastasized to axillary lymph node Liver metastases Lung nodule [id number] Malignant neoplasm of right kidney, except renal pelvis Hypokalemia Bone metastases Breast cancer metastasized to axillary lymph node Liver metastases Lung nodule [id number] Malignant neoplasm of right kidney, except renal pelvis Chief Complaint 3 WKS - LABS 3 WKS - LABS 2.5WKS LABS 3 WKS - LABS 3 WKS - LABS zometa BREAST CANCER BREAST CANCER *IV CONTRAST ONLY* Reason for Visit Bone metastases Breast cancer metastasized to axillary lymph node Liver metastases Lung nodule [id number] Malignant neoplasm of right kidney, except renal pelvis Bone metastases Breast cancer metastasized to axillary lymph node Liver metastases Lung nodule [id number] Malignant neoplasm of right kidney, except renal pelvis Bone metastases Breast cancer metastasized to axillary lymph node Hypokalemia Liver metastases Lung nodule [id number] Malignant neoplasm of right kidney, except renal pelvis Anemia Bone metastases Breast cancer metastasized to axillary lymph node Hypokalemia Liver metastases Lung nodule [id number] Malignant neoplasm of right kidney, except renal pelvis Anemia Bone metastases Breast cancer metastasized to axillary lymph node Hypokalemia Liver metastases Lung nodule [id number] Malignant neoplasm of right kidney, except renal pelvis Chief Complaint 3 WKS - LABS 2.5WKS LABS 3 WKS - LABS 3 WKS - LABS BREAST CANCER BREAST CANCER *IV CONTRAST ONLY* 3WKS LABS REVIEW CT CORRECTION HIGH RISK MEDICATION CHEMO ED zometa Reason for Visit Bone metastases Breast cancer metastasized to axillary lymph node Liver metastases Lung nodule [id number] Malignant neoplasm of right kidney, except renal pelvis Bone metastases Breast cancer metastasized to axillary lymph node Hypokalemia Liver metastases Lung nodule [id number] Malignant neoplasm of right kidney, except renal pelvis Anemia Bone metastases Breast cancer metastasized to axillary lymph node Hypokalemia Liver metastases Lung nodule [id number] Malignant neoplasm of right kidney, except renal pelvis Anemia Bone metastases Breast cancer metastasized to axillary lymph node Hypokalemia Liver metastases Lung nodule [id number] Malignant neoplasm of right kidney, except renal pelvis Anemia Bone metastases Breast cancer metastasized to axillary lymph node Hypokalemia Iron deficiency anemia due to chronic blood loss Liver metastases Lung nodule [id number] Malignant neoplasm of right kidney, except renal pelvis Encounter for education Anemia Bone metastases Breast cancer metastasized to axillary lymph node Iron deficiency anemia due to chronic blood loss Liver metastases [id number] Malignant neoplasm of right kidney, except renal pelvis Anemia Bone metastases Breast cancer metastasized to axillary lymph node Iron deficiency anemia due to chronic blood loss Liver metastases [id number] Malignant neoplasm of right kidney, except renal pelvis Chief Complaint 3WKS - LABS- ENHERTU Secondary malignant neoplasm of liver and intrahep 3 WKS - LABS - ENHERTU 3WK F/U LABS (LABS AT 1:15) 3 WKS - LABS - ENHERTU/ZOMETA 3 WKS - LABS - ENHERTU Injectafer BREAST CA / therapeutic drug level monitoring Reason for Visit Anemia Bone metastases Breast cancer metastasized to axillary lymph node Iron deficiency anemia due to chronic blood loss Liver metastases [id number] Malignant neoplasm of right kidney, except renal pelvis Anemia Bone metastases Breast cancer metastasized to axillary lymph node Hypokalemia Liver metastases [id number] Malignant neoplasm of right kidney, except renal pelvis Anemia Bone metastases Breast cancer metastasized to axillary lymph node Hypokalemia Liver metastases [id number] Malignant neoplasm of right kidney, except renal pelvis Anemia Bone metastases Breast cancer metastasized to axillary lymph node Iron deficiency anemia due to chronic blood loss Liver metastases [id number] Malignant neoplasm of right kidney, except renal pelvis Anemia Bone metastases Breast cancer metastasized to axillary lymph node Iron deficiency anemia due to chronic blood loss Liver metastases [id number] Malignant neoplasm of right kidney, except renal pelvis Chief Complaint 3WKS - LABS- ENHERTU Secondary malignant neoplasm of liver and intrahep 3 WKS - LABS - ENHERTU 3WK F/U LABS (LABS AT 1:15) 3 WKS - LABS - ENHERTU/ZOMETA 3 WKS - LABS - ENHERTU BREAST CA / therapeutic drug level monitoring BREAST CA LEFT 3 WKS - LABS - ENHERTU - REVIEW SCANS Injectafer Reason for Visit Anemia Bone metastases Breast cancer metastasized to axillary lymph node Iron deficiency anemia due to chronic blood loss Liver metastases [id number] Malignant neoplasm of right kidney, except renal pelvis Anemia Bone metastases Breast cancer metastasized to axillary lymph node Hypokalemia Liver metastases [id number] Malignant neoplasm of right kidney, except renal pelvis Anemia Bone metastases Breast cancer metastasized to axillary lymph node Hypokalemia Liver metastases [id number] Malignant neoplasm of right kidney, except renal pelvis Anemia Bone metastases Breast cancer metastasized to axillary lymph node Iron deficiency anemia due to chronic blood loss Liver metastases [id number] Malignant neoplasm of right kidney, except renal pelvis Anemia Bone metastases Breast cancer metastasized to axillary lymph node Iron deficiency anemia due to chronic blood loss Liver metastases [id number] Malignant neoplasm of right kidney, except renal pelvis Anemia Bone metastases Breast cancer metastasized to axillary lymph node Iron deficiency anemia due to chronic blood loss Liver metastases [id number] Malignant neoplasm of right kidney, except renal pelvis Chief Complaint BREAST CA / therapeu tic drug level monitoring BREAST CA LEFT 3 WKS - LABS - ENHERTU - REVIEW SCANS 3 WKS - LABS - HERCEPTIN 3 WKS - LABS - ENHERTU 3 WKS - LABS - ENHERTU 3 WKS - LABS - ENHERTU Injectafer BREAST CA Reason for Visit Anemia Bone metastases Breast cancer metastasized to axillary lymph node Iron deficiency anemia due to chronic blood loss Liver metastases [id number] Malignant neoplasm of right kidney, except renal pelvis CINV (chemotherapy-induced nausea and vomiting) Encounter for monitoring cardiotoxic drug therapy Anemia Bone metastases Breast cancer metastasized to axillary lymph node Iron deficiency anemia due to chronic blood loss Liver metastases [id number] Malignant neoplasm of right kidney, except renal pelvis Anemia Bone metastases Breast cancer metastasized to axillary lymph node Iron deficiency anemia due to chronic blood loss Liver metastases [id number] Malignant neoplasm of right kidney, except renal pelvis Bone metastases Breast cancer metastasized to axillary lymph node Iron deficiency anemia due to chronic blood loss Liver metastases [id number] Malignant neoplasm of right kidney, except renal pelvis Anemia Bone metastases Breast cancer metastasized to axillary lymph node Iron deficiency anemia due to chronic blood loss Liver metastases [id number] Malignant neoplasm of right kidney, except renal pelvis Chief Complaint 3 WKS - LABS - ENHER TU 3 WKS - LABS - ENHERTU 3 WKS - LABS - ENHERTU BREAST CA 3 WKS - LABS - ENHERTU - REVIEW SCANS Injectafer BREAST CANCER Reason for Visit Anemia Bone metastases Breast cancer metastasized to axillary lymph node Iron deficiency anemia due to chronic blood loss Liver metastases [id number] Malignant neoplasm of right kidney, except renal pelvis Bone metastases Breast cancer metastasized to axillary lymph node Iron deficiency anemia due to chronic blood loss Liver metastases [id number] Malignant neoplasm of right kidney, except renal pelvis Anemia Bone metastases Breast cancer metastasized to axillary lymph node Iron deficiency anemia due to chronic blood loss Liver metastases [id number] Malignant neoplasm of right kidney, except renal pelvis Anemia Bone metastases Breast cancer metastasized to axillary lymph node Iron deficiency anemia due to chronic blood loss Liver metastases [id number] Malignant neoplasm of right kidney, except renal pelvis Chief Complaint 3 WKS - LABS - ENHER TU BREAST CA 3 WKS - LABS - ENHERTU - REVIEW SCANS BREAST CANCER 3 WKS - LABS - ENHERTU 3 WKS - LABS - ENHERTU C79.51 3 WKS - LABS - ENHERTU Injectafer C50.812 Reason for Visit Anemia Bone metastases Breast cancer metastasized to axillary lymph node Iron deficiency anemia due to chronic blood loss Liver metastases [id number] Malignant neoplasm of right kidney, except renal pelvis Anemia Bone metastases Breast cancer metastasized to axillary lymph node Iron deficiency anemia due to chronic blood loss Liver metastases [id number] Malignant neoplasm of right kidney, except renal pelvis Anemia Bone metastases Breast cancer metastasized to axillary lymph node Iron deficiency anemia due to chronic blood loss Liver metastases [id number] Malignant neoplasm of right kidney, except renal pelvis Anemia Bone metastases Breast cancer metastasized to axillary lymph node Iron deficiency anemia due to chronic blood loss Liver metastases [id number] Malignant neoplasm of right kidney, except renal pelvis Anemia Bone metastases Breast cancer metastasized to axillary lymph node Iron deficiency anemia due to chronic blood loss Liver metastases [id number] Malignant neoplasm of right kidney, except renal pelvis Chief Complaint Admit Date BREAST CA April 17, 2024 7 :51am 4 WKS - LABS - ZOMETA/FASLODEX - REVIEW SCANS May 01, 2024 2:14pm 4 WKS - LABS - FASLODEX May 29 2:10pm 4 WKS - LABS - FASLODEX June 26 025 2:18pm zometa July 24, 2024 2:1 5pm 4 WKS - LABS - FASLODEX July 24, 2024 2:22pm BREAST CA August 07, 2024 12: 41pm CHEMO ED August 09, 2024 3:3 3pm BREAST CA August 10, 2024 8:1 5am Reason for Visit Admit Date Anemia May 01, 2024 2:14pm Bone metastases May 01, 2024 2:14pm Breast cancer metastasized to axillary l ymph node May 01, 2024 2:14pm Iron deficiency anemia due to chronic bl ood loss May 01, 2024 2:14pm Liver metastases May 01, 2024 2:14pm Malignant neoplasm of overla pping sites of left breast in female, estrogen May 01, 2024 2:14pm Malignant neoplasm of right kidney, exce pt renal pelvis May 01, 2024 2:14pm Anemia May 29, 2024 2 :10pm Bone metastases May 29, 2024 2 :10pm Breast cancer metastasized to axillary l ymph node May 29, 2024 2:10pm Iron deficiency anemia due to chronic bl ood loss May 29, 2024 2:10pm Liver metastases May 29, 2024 2 :10pm Malignant neoplasm of overla pping sites of left breast in female, estrogen May 29, 2024 2:10pm Malignant neoplasm of right kidney, exce pt renal pelvis May 29, 2024 2:10pm Anemia June 26, 2024 2:18pm Bone metastases June 26, 2024 2:18pm Breast cancer metastasized to axillary l ymph node June 26, 2024 2:18pm Iron deficiency anemia due to chronic bl ood loss June 26, 2024 2:18pm Liver metastases June 26, 2024 2:18pm Malignant neoplasm of overla pping sites of left breast in female, estrogen June 26, 2024 2:18pm Malignant neoplasm of right kidney, exce pt renal pelvis June 26, 2024 2:18pm Anemia July 24, 2024 2:2 2pm Bone metastases July 24, 2024 2:2 2pm Breast cancer metastasized to axillary l ymph node July 24, 2024 2:22pm Iron deficiency anemia due to chronic bl ood loss July 24, 2024 2:22pm Liver metastases July 24, 2024 2:2 2pm Malignant neoplasm of overla pping sites of left breast in female, estrogen July 24, 2024 2:22pm Malignant neoplasm of right kidney, exce pt renal pelvis July 24, 2024 2:22pm Encounter for education August 09, 2024 3:33pm Anemia August 09, 2024 3:3 3pm Bone metastases August 09, 2024 3:3 3pm Breast cancer metastasized to axillary l ymph node August 09, 2024 3:33pm Iron deficiency anemia due to chronic bl ood loss August 09, 2024 3:33pm Liver metastases August 09, 2024 3:3 3pm Malignant neoplasm of overla pping sites of left breast in female, estrogen August 09, 2024 3:33pm Malignant neoplasm of right kidney, exce pt renal pelvis August 09, 2024 3:33pm Chief Complaint Admit Date 4 WKS - LABS - ZOMETA/FASLODEX - REVIEW SCANS May 01, 2024 2:14pm 4 WKS - LABS - FASLODEX May 29 2:10pm 4 WKS - LABS - FASLODEX June 26, 2 025 2:18pm zometa July 24, 2024 2:1 5pm 4 WKS - LABS - FASLODEX July 24, 2024 2:22pm BREAST CA August 07, 2024 12: 41pm CHEMO ED August 09, 2024 3:3 3pm BREAST CA August 10, 2024 8:1 5am abd pain August 18, 2024 5:58 pm Chief Complaint Admit Date 4 WKS - LABS - FASLODEX May 29 2:10pm 4 WKS - LABS - FASLODEX June 26 2 025 2:18pm zometa July 24, 2024 2:1 5pm 4 WKS - LABS - FASLODEX July 24, 2024 2:22pm BREAST CA August 07, 2024 12: 41pm CHEMO ED August 09, 2024 3:3 3pm BREAST CA August 10, 2024 8:1 5am abd pain August 18, 2024 5:58 pm BREAST CANCER W/BONE METS,THORACIC RADIC ULOPATHY August 28, 2024 12:25pm Reason for Visit Admit Date Anemia May 29, 2024 2 :10pm Bone metastases May 29, 2024 2 :10pm Breast cancer metastasized to axillary l ymph node May 29, 2024 2:10pm Iron deficiency anemia due to chronic bl ood loss May 29, 2024 2:10pm Liver metastases May 29, 2024 2 :10pm Malignant neoplasm of overla pping sites of left breast in female, estrogen May 29, 2024 2:10pm Malignant neoplasm of right kidney, exce pt renal pelvis May 29, 2024 2:10pm Anemia June 26, 2024 2:18pm Bone metastases June 26, 2024 2:18pm Breast cancer metastasized to axillary l ymph node June 26, 2024 2:18pm Iron deficiency anemia due to chronic bl ood loss June 26, 2024 2:18pm Liver metastases June 26, 2024 2:18pm Malignant neoplasm of overla pping sites of left breast in female, estrogen June 26, 2024 2:18pm Malignant neoplasm of right kidney, exce pt renal pelvis June 26, 2024 2:18pm Anemia July 24, 2024 2:2 2pm Bone metastases July 24, 2024 2:2 2pm Breast cancer metastasized to axillary l ymph node July 24, 2024 2:22pm Iron deficiency anemia due to chronic bl ood loss July 24, 2024 2:22pm Liver metastases July 24, 2024 2:2 2pm Malignant neoplasm of overla pping sites of left breast in female, estrogen July 24, 2024 2:22pm Malignant neoplasm of right kidney, exce pt renal pelvis July 24, 2024 2:22pm Encounter for education August 09, 2024 3:33pm Anemia August 09, 2024 3:3 3pm Bone metastases August 09, 2024 3:3 3pm Breast cancer metastasized to axillary l ymph node August 09, 2024 3:33pm Iron deficiency anemia due to chronic bl ood loss August 09, 2024 3:33pm Liver metastases August 09, 2024 3:3 3pm Malignant neoplasm of overla pping sites of left breast in female, estrogen August 09, 2024 3:33pm Malignant neoplasm of right kidney, exce pt renal pelvis August 09, 2024 3:33pm Chief Complaint Admit Date 4 WKS - LABS - FASLODEX June 26, 025 2:18pm 4 WKS - LABS - FASLODEX July 24, 2024 2:22pm BREAST CA August 07, 2024 12: 41pm CHEMO ED August 09, 2024 3:3 3pm BREAST CA August 10, 2024 8:1 5am abd pain August 18, 2024 5:58 pm BREAST CANCER W/BONE METS,THORACIC RADIC ULOPATHY August 28, 2024 12:25pm NEW START - LABS - SACITUZUMAB August 8:10am 1 WEEK LABS TX September 14, 2024 10:22a m [email or web address] September 28, 2024 10:30 am 2 WKS - LABS - TRODELVY September 28, 2024 1 0:34am Reason for Visit Admit Date Anemia June 26, 2024 2:18pm Bone metastases June 26, 2024 2:18pm Breast cancer metastasized to axillary l ymph node June 26, 2024 2:18pm Iron deficiency anemia due to chronic bl ood loss June 26, 2024 2:18pm Liver metastases June 26, 2024 2:18pm Malignant neoplasm of overla pping sites of left breast in female, estrogen June 26, 2024 2:18pm Malignant neoplasm of right kidney, exce pt renal pelvis June 26, 2024 2:18pm Anemia July 24, 2024 2:2 2pm Bone metastases July 24, 2024 2:2 2pm Breast cancer metastasized to axillary l ymph node July 24, 2024 2:22pm Iron deficiency anemia due to chronic bl ood loss July 24, 2024 2:22pm Liver metastases July 24, 2024 2:2 2pm Malignant neoplasm of overla pping sites of left breast in female, estrogen July 24, 2024 2:22pm Malignant neoplasm of right kidney, exce pt renal pelvis July 24, 2024 2:22pm Encounter for education August 09, 2024 3:33pm Anemia August 09, 2024 3:3 3pm Bone metastases August 09, 2024 3:3 3pm Breast cancer metastasized to axillary l ymph node August 09, 2024 3:33pm Iron deficiency anemia due to chronic bl ood loss August 09, 2024 3:33pm Liver metastases August 09, 2024 3:3 3pm Malignant neoplasm of overla pping sites of left breast in female, estrogen August 09, 2024 3:33pm Malignant neoplasm of right kidney, exce pt renal pelvis August 09, 2024 3:33pm Anemia September 07, 2024 8:1 0am Bone metastases September 07, 2024 8:1 0am Breast cancer metastasized to axillary l ymph node September 07, 2024 8:10am Iron deficiency anemia due to chronic bl ood loss September 07, 2024 8:10am Liver metastases September 07, 2024 8:1 0am Malignant neoplasm of overla pping sites of left breast in female, estrogen September 07, 2024 8:10am Malignant neoplasm of right kidney, exce pt renal pelvis September 07, 2024 8:10am Anemia September 14, 2024 10:22a m Bone metastases September 14, 2024 10:22a m Breast cancer metastasized to axillary l ymph node September 14, 2024 10:22am Liver metastases September 14, 2024 10:22a m Malignant neoplasm of overla pping sites of left breast in female, estrogen September 14, 2024 10:22am Malignant neoplasm of right kidney, exce pt renal pelvis September 14, 2024 10:22am Chief Complaint Admit Date 4 WKS - LABS - FASLODEX June 26 025 2:18pm 4 WKS - LABS - FASLODEX July 24, 2024 2:22pm BREAST CA August 07, 2024 12: 41pm CHEMO ED August 09, 2024 3:3 3pm BREAST CA August 10, 2024 8:1 5am abd pain August 18, 2024 5:58 pm BREAST CANCER W/BONE METS,THORACIC RADIC ULOPATHY August 28, 2024 12:25pm NEW START - LABS - SACITUZUMAB August 8:10am 1 WEEK LABS TX September 14, 2024 10:22a m 2 WKS - LABS - TRODELVY September 28, 2024 1 0:34am 1 WK - LABS - TRODELVY October 05, 2024 10 :25am 2 WKS - LABS - TRODELVY October 19, 2024 9 :13am [email or web address] October 19, 2024 9:15a m Reason for Visit Admit Date Anemia June 26, 2024 2:18pm Bone metastases June 26, 2024 2:18pm Breast cancer metastasized to axillary l ymph node June 26, 2024 2:18pm Iron deficiency anemia due to chronic bl ood loss June 26, 2024 2:18pm Liver metastases June 26, 2024 2:18pm Malignant neoplasm of overla pping sites of left breast in female, estrogen June 26, 2024 2:18pm Malignant neoplasm of right kidney, exce pt renal pelvis June 26, 2024 2:18pm Anemia July 24, 2024 2:2 2pm Bone metastases July 24, 2024 2:2 2pm Breast cancer metastasized to axillary l ymph node July 24, 2024 2:22pm Iron deficiency anemia due to chronic bl ood loss July 24, 2024 2:22pm Liver metastases July 24, 2024 2:2 2pm Malignant neoplasm of overla pping sites of left breast in female, estrogen July 24, 2024 2:22pm Malignant neoplasm of right kidney, exce pt renal pelvis July 24, 2024 2:22pm Encounter for education August 09, 2024 3:33pm Anemia August 09, 2024 3:3 3pm Bone metastases August 09, 2024 3:3 3pm Breast cancer metastasized to axillary l ymph node August 09, 2024 3:33pm Iron deficiency anemia due to chronic bl ood loss August 09, 2024 3:33pm Liver metastases August 09, 2024 3:3 3pm Malignant neoplasm of overla pping sites of left breast in female, estrogen August 09, 2024 3:33pm Malignant neoplasm of right kidney, exce pt renal pelvis August 09, 2024 3:33pm Anemia September 07, 2024 8:1 0am Bone metastases September 07, 2024 8:1 0am Breast cancer metastasized to axillary l ymph node September 07, 2024 8:10am Iron deficiency anemia due to chronic bl ood loss September 07, 2024 8:10am Liver metastases September 07, 2024 8:1 0am Malignant neoplasm of overla pping sites of left breast in female, estrogen Alicia 24th, 2025 8:10am Malignant neoplasm of right kidney, exce pt renal pelvis September 07, 2024 8:10am Anemia September 14, 2024 10:22a m Bone metastases September 14, 2024 10:22a m Breast cancer metastasized to axillary l ymph node September 14, 2024 10:22am Liver metastases September 14, 2024 10:22a m Malignant neoplasm of overla pping sites of left breast in female, estrogen September 14, 2024 10:22am Malignant neoplasm of right kidney, exce pt renal pelvis September 14, 2024 10:22am Central line complication September 28, 2024 10:34am Anemia September 28, 2024 10:34 am Bone metastases September 28, 2024 10:34 am Breast cancer metastasized to axillary l ymph node September 28, 2024 10:34am Liver metastases September 28, 2024 10:34 am Malignant neoplasm of overla pping sites of left breast in female, estrogen September 28, 2024 10:34am Malignant neoplasm of right kidney, exce pt renal pelvis September 28, 2024 10:34am Anemia October 05, 2024 10:25 am Bone metastases October 05, 2024 10:25 am Breast cancer metastasized to axillary l ymph node October 05, 2024 10:25am Iron deficiency anemia due to chronic bl ood loss October 05, 2024 10:25am Liver metastases October 05, 2024 10:25 am Malignant neoplasm of overla pping sites of left breast in female, estrogen October 05, 2024 10:25am Malignant neoplasm of right kidney, exce pt renal pelvis October 05, 2024 10:25am Anemia October 19, 2024 9:13a m Bone metastases October 19, 2024 9:13a m Breast cancer metastasized to axillary l ymph node October 19, 2024 9:13am Iron deficiency anemia due to chronic bl ood loss October 19, 2024 9:13am Liver metastases October 19, 2024 9:13a m Malignant neoplasm of overla pping sites of left breast in female, estrogen October 19, 2024 9:13am Malignant neoplasm of right kidney, exce pt renal pelvis October 19, 2024 9:13am Chief Complaint Admit Date 4 WKS - LABS - FASLODEX July 24, 2024 2:22pm BREAST CA March 24th, 2025 12: 41pm CHEMO ED August 09, 2024 3:3 3pm BREAST CA August 10, 2024 8:1 5am abd pain August 18, 2024 5:58 pm BREAST CANCER W/BONE METS,THORACIC RADIC ULOPATHY August 28, 2024 12:25pm NEW START - LABS - SACITUZUMAB August 8:10am 1 WEEK LABS TX September 14, 2024 10:22a m 2 WKS - LABS - TRODELVY September 28, 2024 1 0:34am 1 WK - LABS - TRODELVY October 05, 2024 10 :25am 2 WKS - LABS - TRODELVY October 19, 2024 9 :13am 1 WK - LABS - TRODELVY October 26, 2024 9 :44am [email or web address] October 26, 2024 9:45 am Reason for Visit Admit Date Anemia July 24, 2024 2:2 2pm Bone metastases July 24, 2024 2:2 2pm Breast cancer metastasized to axillary l ymph node July 24, 2024 2:22pm Iron deficiency anemia due to chronic bl ood loss July 24, 2024 2:22pm Liver metastases July 24, 2024 2:2 2pm Malignant neoplasm of overla pping sites of left breast in female, estrogen July 24, 2024 2:22pm Malignant neoplasm of right kidney, exce pt renal pelvis July 24, 2024 2:22pm Encounter for education August 09, 2024 3:33pm Anemia August 09, 2024 3:3 3pm Bone metastases August 09, 2024 3:3 3pm Breast cancer metastasized to axillary l ymph node August 09, 2024 3:33pm Iron deficiency anemia due to chronic bl ood loss August 09, 2024 3:33pm Liver metastases August 09, 2024 3:3 3pm Malignant neoplasm of overla pping sites of left breast in female, estrogen August 09, 2024 3:33pm Malignant neoplasm of right kidney, exce pt renal pelvis August 09, 2024 3:33pm Anemia September 07, 2024 8:1 0am Bone metastases September 07, 2024 8:1 0am Breast cancer metastasized to axillary l ymph node September 07, 2024 8:10am Iron deficiency anemia due to chronic bl ood loss September 07, 2024 8:10am Liver metastases September 07, 2024 8:1 0am Malignant neoplasm of overla pping sites of left breast in female, estrogen September 07, 2024 8:10am Malignant neoplasm of right kidney, exce pt renal pelvis September 07, 2024 8:10am Anemia September 14, 2024 10:22a m Bone metastases September 14, 2024 10:22a m Breast cancer metastasized to axillary l ymph node September 14, 2024 10:22am Liver metastases September 14, 2024 10:22a m Malignant neoplasm of overla pping sites of left breast in female, estrogen September 14, 2024 10:22am Malignant neoplasm of right kidney, exce pt renal pelvis September 14, 2024 10:22am Central line complication September 28, 2024 10:34am Anemia September 28, 2024 10:34 am Bone metastases September 28, 2024 10:34 am Breast cancer metastasized to axillary l ymph node September 28, 2024 10:34am Liver metastases September 28, 2024 10:34 am Malignant neoplasm of overla pping sites of left breast in female, estrogen September 28, 2024 10:34am Malignant neoplasm of right kidney, exce pt renal pelvis September 28, 2024 10:34am Anemia October 05, 2024 10:25 am Bone metastases October 05, 2024 10:25 am Breast cancer metastasized to axillary l ymph node October 05, 2024 10:25am Iron deficiency anemia due to chronic bl ood loss October 05, 2024 10:25am Liver metastases October 05, 2024 10:25 am Malignant neoplasm of overla pping sites of left breast in female, estrogen October 05, 2024 10:25am Malignant neoplasm of right kidney, exce pt renal pelvis October 05, 2024 10:25am Anemia October 19, 2024 9:13a m Bone metastases October 19, 2024 9:13a m Breast cancer metastasized to axillary l ymph node October 19, 2024 9:13am Iron deficiency anemia due to chronic bl ood loss October 19, 2024 9:13am Liver metastases October 19, 2024 9:13a m Malignant neoplasm of overla pping sites of left breast in female, estrogen October 19, 2024 9:13am Malignant neoplasm of right kidney, exce pt renal pelvis October 19, 2024 9:13am Chief Complaint Admit Date 4 WKS - LABS - FASLODEX July 24, 2024 2:22pm BREAST CA August 07, 2024 12: 41pm CHEMO ED August 09, 2024 3:3 3pm BREAST CA August 10, 2024 8:1 5am abd pain August 18, 2024 5:58 pm BREAST CANCER W/BONE METS,THORACIC RADIC ULOPATHY August 28, 2024 12:25pm NEW START - LABS - SACITUZUMAB August 8:10am 1 WEEK LABS TX September 14, 2024 10:22a m 2 WKS - LABS - TRODELVY September 28, 2024 1 0:34am 1 WK - LABS - TRODELVY October 05, 2024 10 :25am 2 WKS - LABS - TRODELVY October 19, 2024 9 :13am 1 WK - LABS - TRODELVY October 26, 2024 9 :44am 2 WKS - LABS - TRODELVY November 09, 2024 10:37am [email or web address] November 09, 2024 10:4 5am Reason for Visit Admit Date Anemia July 24, 2024 2:2 2pm Bone metastases July 24, 2024 2:2 2pm Breast cancer metastasized to axillary l ymph node July 24, 2024 2:22pm Iron deficiency anemia due to chronic bl ood loss July 24, 2024 2:22pm Liver metastases July 24, 2024 2:2 2pm Malignant neoplasm of overla pping sites of left breast in female, estrogen July 24, 2024 2:22pm Malignant neoplasm of right kidney, exce pt renal pelvis July 24, 2024 2:22pm Encounter for education August 09, 2024 3:33pm Anemia August 09, 2024 3:3 3pm Bone metastases August 09, 2024 3:3 3pm Breast cancer metastasized to axillary l ymph node August 09, 2024 3:33pm Iron deficiency anemia due to chronic bl ood loss August 09, 2024 3:33pm Liver metastases August 09, 2024 3:3 3pm Malignant neoplasm of overla pping sites of left breast in female, estrogen August 09, 2024 3:33pm Malignant neoplasm of right kidney, exce pt renal pelvis August 09, 2024 3:33pm Anemia September 07, 2024 8:1 0am Bone metastases September 07, 2024 8:1 0am Breast cancer metastasized to axillary l ymph node September 07, 2024 8:10am Iron deficiency anemia due to chronic bl ood loss September 07, 2024 8:10am Liver metastases September 07, 2024 8:1 0am Malignant neoplasm of overla pping sites of left breast in female, estrogen September 07, 2024 8:10am Malignant neoplasm of right kidney, exce pt renal pelvis September 07, 2024 8:10am Anemia September 14, 2024 10:22a m Bone metastases September 14, 2024 10:22a m Breast cancer metastasized to axillary l ymph node September 14, 2024 10:22am Liver metastases September 14, 2024 10:22a m Malignant neoplasm of overla pping sites of left breast in female, estrogen September 14, 2024 10:22am Malignant neoplasm of right kidney, exce pt renal pelvis September 14, 2024 10:22am Central line complication September 28, 2024 10:34am Anemia September 28, 2024 10:34 am Bone metastases September 28, 2024 10:34 am Breast cancer metastasized to axillary l ymph node September 28, 2024 10:34am Liver metastases September 28, 2024 10:34 am Malignant neoplasm of overla pping sites of left breast in female, estrogen September 28, 2024 10:34am Malignant neoplasm of right kidney, exce pt renal pelvis September 28, 2024 10:34am Anemia October 05, 2024 10:25 am Bone metastases October 05, 2024 10:25 am Breast cancer metastasized to axillary l ymph node October 05, 2024 10:25am Iron deficiency anemia due to chronic bl ood loss October 05, 2024 10:25am Liver metastases October 05, 2024 10:25 am Malignant neoplasm of overla pping sites of left breast in female, estrogen October 05, 2024 10:25am Malignant neoplasm of right kidney, exce pt renal pelvis October 05, 2024 10:25am Anemia October 19, 2024 9:13a m Bone metastases October 19, 2024 9:13a m Breast cancer metastasized to axillary l ymph node October 19, 2024 9:13am Iron deficiency anemia due to chronic bl ood loss October 19, 2024 9:13am Liver metastases October 19, 2024 9:13a m Malignant neoplasm of overla pping sites of left breast in female, estrogen October 19, 2024 9:13am Malignant neoplasm of right kidney, exce pt renal pelvis October 19, 2024 9:13am Anemia October 26, 2024 9:44 am Bone metastases October 26, 2024 9:44 am Breast cancer metastasized to axillary l ymph node October 26, 2024 9:44am Iron deficiency anemia due to chronic bl ood loss October 26, 2024 9:44am Liver metastases October 26, 2024 9:44 am Malignant neoplasm of overla pping sites of left breast in female, estrogen October 26, 2024 9:44am Malignant neoplasm of right kidney, exce pt renal pelvis October 26, 2024 9:44am Anemia November 09, 2024 10:3 7am Bone metastases November 09, 2024 10:3 7am Breast cancer metastasized to axillary l ymph node November 09, 2024 10:37am Iron deficiency anemia due to chronic bl ood loss November 09, 2024 10:37am Liver metastases November 09, 2024 10:3 7am Malignant neoplasm of overla pping sites of left breast in female, estrogen November 09, 2024 10:37am Malignant neoplasm of right kidney, exce pt renal pelvis November 09, 2024 10:37am Chief Complaint Admit Date 4 WKS - LABS - FASLODEX July 24, 2024 2:22pm BREAST CA August 07, 2024 12: 41pm CHEMO ED August 09, 2024 3:3 3pm BREAST CA August 10, 2024 8:1 5am abd pain August 18, 2024 5:58 pm BREAST CANCER W/BONE METS,THORACIC RADIC ULOPATHY August 28, 2024 12:25pm NEW START - LABS - SACITUZUMAB August 8:10am 1 WEEK LABS TX September 14, 2024 10:22a m 2 WKS - LABS - TRODELVY September 28, 2024 1 0:34am 1 WK - LABS - TRODELVY October 05, 2024 10 :25am 2 WKS - LABS - TRODELVY October 19, 2024 9 :13am 1 WK - LABS - TRODELVY October 26, 2024 9 :44am 2 WKS - LABS - TRODELVY November 09, 2024 10:37am 1 WK - LABS - TRODELVY November 16, 2024 9: 55am [email or web address] November 16, 2024 10:00 am Chief Complaint Admit Date 4 WKS - LABS - FASLODEX July 24, 2024 2:22pm BREAST CA August 07, 2024 12: 41pm CHEMO ED August 09, 2024 3:3 3pm BREAST CA August 10, 2024 8:1 5am abd pain August 18, 2024 5:58 pm BREAST CANCER W/BONE METS,THORACIC RADIC ULOPATHY August 28, 2024 12:25pm NEW START - LABS - SACITUZUMAB August 8:10am 1 WEEK LABS TX September 14, 2024 10:22a m 2 WKS - LABS - TRODELVY September 28, 2024 1 0:34am 1 WK - LABS - TRODELVY October 05, 2024 10 :25am 2 WKS - LABS - TRODELVY October 19, 2024 9 :13am 1 WK - LABS - TRODELVY October 26, 2024 9 :44am 2 WKS - LABS - TRODELVY November 09, 2024 10:37am 1 WK - LABS - TRODELVY November 16, 2024 9: 55am [email or web address] November 16, 2024 10:00 am BREAST CANCER November 20, 2024 7:57a m REVIEW CT SCAN November 21, 2024 10:08 am Reason for Visit Admit Date Anemia July 24, 2024 2:2 2pm Bone metastases July 24, 2024 2:2 2pm Breast cancer metastasized to axillary l ymph node July 24, 2024 2:22pm Iron deficiency anemia due to chronic bl ood loss July 24, 2024 2:22pm Liver metastases July 24, 2024 2:2 2pm Malignant neoplasm of overla pping sites of left breast in female, estrogen July 24, 2024 2:22pm Malignant neoplasm of right kidney, exce pt renal pelvis July 24, 2024 2:22pm Encounter for education August 09, 2024 3:33pm Anemia August 09, 2024 3:3 3pm Bone metastases August 09, 2024 3:3 3pm Breast cancer metastasized to axillary l ymph node August 09, 2024 3:33pm Iron deficiency anemia due to chronic bl ood loss August 09, 2024 3:33pm Liver metastases August 09, 2024 3:3 3pm Malignant neoplasm of overla pping sites of left breast in female, estrogen August 09, 2024 3:33pm Malignant neoplasm of right kidney, exce pt renal pelvis August 09, 2024 3:33pm Anemia September 07, 2024 8:1 0am Bone metastases September 07, 2024 8:1 0am Breast cancer metastasized to axillary l ymph node September 07, 2024 8:10am Iron deficiency anemia due to chronic bl ood loss September 07, 2024 8:10am Liver metastases September 07, 2024 8:1 0am Malignant neoplasm of overla pping sites of left breast in female, estrogen September 07, 2024 8:10am Malignant neoplasm of right kidney, exce pt renal pelvis September 07, 2024 8:10am Anemia September 14, 2024 10:22a m Bone metastases September 14, 2024 10:22a m Breast cancer metastasized to axillary l ymph node September 14, 2024 10:22am Liver metastases September 14, 2024 10:22a m Malignant neoplasm of overla pping sites of left breast in female, estrogen September 14, 2024 10:22am Malignant neoplasm of right kidney, exce pt renal pelvis September 14, 2024 10:22am Central line complication September 28, 2024 10:34am Anemia September 28, 2024 10:34 am Bone metastases September 28, 2024 10:34 am Breast cancer metastasized to axillary l ymph node September 28, 2024 10:34am Liver metastases September 28, 2024 10:34 am Malignant neoplasm of overla pping sites of left breast in female, estrogen September 28, 2024 10:34am Malignant neoplasm of right kidney, exce pt renal pelvis September 28, 2024 10:34am Anemia October 05, 2024 10:25 am Bone metastases October 05, 2024 10:25 am Breast cancer metastasized to axillary l ymph node October 05, 2024 10:25am Iron deficiency anemia due to chronic bl ood loss May 22nd, 2025 10:25am Liver metastases October 05, 2024 10:25 am Malignant neoplasm of overla pping sites of left breast in female, estrogen October 05, 2024 10:25am Malignant neoplasm of right kidney, exce pt renal pelvis October 05, 2024 10:25am Anemia October 19, 2024 9:13a m Bone metastases October 19, 2024 9:13a m Breast cancer metastasized to axillary l ymph node October 19, 2024 9:13am Iron deficiency anemia due to chronic bl ood loss October 19, 2024 9:13am Liver metastases October 19, 2024 9:13a m Malignant neoplasm of overla pping sites of left breast in female, estrogen October 19, 2024 9:13am Malignant neoplasm of right kidney, exce pt renal pelvis October 19, 2024 9:13am Anemia October 26, 2024 9:44 am Bone metastases October 26, 2024 9:44 am Breast cancer metastasized to axillary l ymph node October 26, 2024 9:44am Iron deficiency anemia due to chronic bl ood loss October 26, 2024 9:44am Liver metastases October 26, 2024 9:44 am Malignant neoplasm of overla pping sites of left breast in female, estrogen October 26, 2024 9:44am Malignant neoplasm of right kidney, exce pt renal pelvis October 26, 2024 9:44am Anemia November 09, 2024 10:3 7am Bone metastases November 09, 2024 10:3 7am Breast cancer metastasized to axillary l ymph node November 09, 2024 10:37am Iron deficiency anemia due to chronic bl ood loss November 09, 2024 10:37am Liver metastases November 09, 2024 10:3 7am Malignant neoplasm of overla pping sites of left breast in female, estrogen November 09, 2024 10:37am Malignant neoplasm of right kidney, exce pt renal pelvis November 09, 2024 10:37am Anemia November 16, 2024 9:55a m Bone metastases November 16, 2024 9:55a m Breast cancer metastasized to axillary l ymph node November 16, 2024 9:55am Iron deficiency anemia due to chronic bl ood loss November 16, 2024 9:55am Liver metastases November 16, 2024 9:55a m Malignant neoplasm of overla pping sites of left breast in female, estrogen November 16, 2024 9:55am Malignant neoplasm of right kidney, exce pt renal pelvis November 16, 2024 9:55am Anemia November 21, 2024 10:08 am Bone metastases November 21, 2024 10:08 am Breast cancer metastasized to axillary l ymph node November 21, 2024 10:08am Iron deficiency anemia due to chronic bl ood loss November 21, 2024 10:08am Liver metastases November 21, 2024 10:08 am Malignant neoplasm of overla pping sites of left breast in female, estrogen November 21, 2024 10:08am Malignant neoplasm of right kidney, exce pt renal pelvis November 21, 2024 10:08am Chief Complaint Admit Date BREAST CA August 07, 2024 12: 41pm CHEMO ED August 09, 2024 3:3 3pm BREAST CA August 10, 2024 8:1 5am abd pain August 18, 2024 5:58 pm BREAST CANCER W/BONE METS,THORACIC RADIC ULOPATHY August 28, 2024 12:25pm NEW START - LABS - SACITUZUMAB August 8:10am 1 WEEK LABS TX September 14, 2024 10:22a m 2 WKS - LABS - TRODELVY September 28, 2024 1 0:34am 1 WK - LABS - TRODELVY October 05, 2024 10 :25am 2 WKS - LABS - TRODELVY October 19, 2024 9 :13am 1 WK - LABS - TRODELVY October 26, 2024 9 :44am 2 WKS - LABS - TRODELVY November 09, 2024 10:37am 1 WK - LABS - TRODELVY November 16, 2024 9: 55am BREAST CANCER November 20, 2024 7:57a m REVIEW CT SCAN November 21, 2024 10:08 am [email or web address] November 23, 2024 1:30 pm Reason for Visit Admit Date Encounter for education August 09, 2024 3:33pm Anemia August 09, 2024 3:3 3pm Bone metastases August 09, 2024 3:3 3pm Breast cancer metastasized to axillary l ymph node August 09, 2024 3:33pm Iron deficiency anemia due to chronic bl ood loss August 09, 2024 3:33pm Liver metastases August 09, 2024 3:3 3pm Malignant neoplasm of overla pping sites of left breast in female, estrogen August 09, 2024 3:33pm Malignant neoplasm of right kidney, exce pt renal pelvis August 09, 2024 3:33pm Anemia September 07, 2024 8:1 0am Bone metastases September 07, 2024 8:1 0am Breast cancer metastasized to axillary l ymph node September 07, 2024 8:10am Iron deficiency anemia due to chronic bl ood loss September 07, 2024 8:10am Liver metastases September 07, 2024 8:1 0am Malignant neoplasm of overla pping sites of left breast in female, estrogen September 07, 2024 8:10am Malignant neoplasm of right kidney, exce pt renal pelvis September 07, 2024 8:10am Anemia September 14, 2024 10:22a m Bone metastases September 14, 2024 10:22a m Breast cancer metastasized to axillary l ymph node September 14, 2024 10:22am Liver metastases September 14, 2024 10:22a m Malignant neoplasm of overla pping sites of left breast in female, estrogen September 14, 2024 10:22am Malignant neoplasm of right kidney, exce pt renal pelvis September 14, 2024 10:22am Central line complication September 28, 2024 10:34am Anemia September 28, 2024 10:34 am Bone metastases September 28, 2024 10:34 am Breast cancer metastasized to axillary l ymph node September 28, 2024 10:34am Liver metastases September 28, 2024 10:34 am Malignant neoplasm of overla pping sites of left breast in female, estrogen September 28, 2024 10:34am Malignant neoplasm of right kidney, exce pt renal pelvis September 28, 2024 10:34am Anemia October 05, 2024 10:25 am Bone metastases October 05, 2024 10:25 am Breast cancer metastasized to axillary l ymph node October 05, 2024 10:25am Iron deficiency anemia due to chronic bl ood loss October 05, 2024 10:25am Liver metastases October 05, 2024 10:25 am Malignant neoplasm of overla pping sites of left breast in female, estrogen October 05, 2024 10:25am Malignant neoplasm of right kidney, exce pt renal pelvis October 05, 2024 10:25am Anemia October 19, 2024 9:13a m Bone metastases October 19, 2024 9:13a m Breast cancer metastasized to axillary l ymph node October 19, 2024 9:13am Iron deficiency anemia due to chronic bl ood loss October 19, 2024 9:13am Liver metastases October 19, 2024 9:13a m Malignant neoplasm of overla pping sites of left breast in female, estrogen October 19, 2024 9:13am Malignant neoplasm of right kidney, exce pt renal pelvis October 19, 2024 9:13am Anemia October 26, 2024 9:44 am Bone metastases October 26, 2024 9:44 am Breast cancer metastasized to axillary l ymph node October 26, 2024 9:44am Iron deficiency anemia due to chronic bl ood loss October 26, 2024 9:44am Liver metastases October 26, 2024 9:44 am Malignant neoplasm of overla pping sites of left breast in female, estrogen October 26, 2024 9:44am Malignant neoplasm of right kidney, exce pt renal pelvis October 26, 2024 9:44am Anemia November 09, 2024 10:3 7am Bone metastases November 09, 2024 10:3 7am Breast cancer metastasized to axillary l ymph node November 09, 2024 10:37am Iron deficiency anemia due to chronic bl ood loss November 09, 2024 10:37am Liver metastases November 09, 2024 10:3 7am Malignant neoplasm of overla pping sites of left breast in female, estrogen November 09, 2024 10:37am Malignant neoplasm of right kidney, exce pt renal pelvis November 09, 2024 10:37am Anemia November 16, 2024 9:55a m Bone metastases November 16, 2024 9:55a m Breast cancer metastasized to axillary l ymph node November 16, 2024 9:55am Iron deficiency anemia due to chronic bl ood loss November 16, 2024 9:55am Liver metastases November 16, 2024 9:55a m Malignant neoplasm of overla pping sites of left breast in female, estrogen November 16, 2024 9:55am Malignant neoplasm of right kidney, exce pt renal pelvis November 16, 2024 9:55am Anemia November 21, 2024 10:08 am Bone metastases November 21, 2024 10:08 am Breast cancer metastasized to axillary l ymph node November 21, 2024 10:08am Iron deficiency anemia due to chronic bl ood loss November 21, 2024 10:08am Liver metastases November 21, 2024 10:08 am Malignant neoplasm of overla pping sites of left breast in female, estrogen November 21, 2024 10:08am Malignant neoplasm of right kidney, exce pt renal pelvis November 21, 2024 10:08am Chief Complaint Admit Date BREAST CA August 07, 2024 12: 41pm CHEMO ED August 09, 2024 3:3 3pm BREAST CA August 10, 2024 8:1 5am abd pain August 18, 2024 5:58 pm BREAST CANCER W/BONE METS,THORACIC RADIC ULOPATHY August 28, 2024 12:25pm [facility] - LABS - SACITUZUM[facility] August 8:10am 1 WEEK LABS TX September 14, 2024 10:22a m 2 WKS - LABS - TRODELVY September 28, 2024 1 0:34am 1 WK - LABS - TRODELVY October 05, 2024 10 :25am 2 WKS - LABS - TRODELVY October 19, 2024 9 :13am 1 WK - LABS - TRODELVY October 26, 2024 9 :44am 2 WKS - LABS - TRODELVY November 09, 2024 10:37am 1 WK - LABS - TRODELVY November 16, 2024 9: 55am BREAST CANCER November 20, 2024 7:57a m REVIEW CT SCAN November 21, 2024 10:08 am [email or web address] November 23, 2024 1:30 pm CANCER November 24, 2024 7:34 am Chief Complaint Admit Date BREAST CANCER W/BONE METS,THORACIC RADIC ULOPATHY August 28, 2024 12:25pm [facility] - LABS - [facility] August 8:10am 1 WEEK LABS TX September 14, 2024 10:22a m 2 WKS - LABS - TRODELVY September 28, 2024 1 0:34am 1 WK - LABS - TRODELVY October 05, 2024 10 :25am 2 WKS - LABS - TRODELVY October 19, 2024 9 :13am 1 WK - LABS - TRODELVY October 26, 2024 9 :44am 2 WKS - LABS - TRODELVY November 09, 2024 10:37am 1 WK - LABS - TRODELVY November 16, 2024 9: 55am BREAST CANCER November 20, 2024 7:57a m REVIEW CT SCAN November 21, 2024 10:08 am CANCER November 24, 2024 7:34 am NEW START - LABS - [facility] December 21, 2024 7:26am [email or web address] December 21, 2024 7:3 0am Reason for Visit Admit Date Anemia September 07, 2024 8:1 0am Bone metastases September 07, 2024 8:1 0am Breast cancer metastasized to axillary l ymph node September 07, 2024 8:10am Iron deficiency anemia due to chronic bl ood loss September 07, 2024 8:10am Liver metastases September 07, 2024 8:1 0am Malignant neoplasm of overla pping sites of left breast in female, estrogen September 07, 2024 8:10am Malignant neoplasm of right kidney, exce pt renal pelvis September 07, 2024 8:10am Anemia September 14, 2024 10:22a m Bone metastases September 14, 2024 10:22a m Breast cancer metastasized to axillary l ymph node September 14, 2024 10:22am Liver metastases September 14, 2024 10:22a m Malignant neoplasm of overla pping sites of left breast in female, estrogen September 14, 2024 10:22am Malignant neoplasm of right kidney, exce pt renal pelvis September 14, 2024 10:22am Central line complication September 28, 2024 10:34am Anemia September 28, 2024 10:34 am Bone metastases September 28, 2024 10:34 am Breast cancer metastasized to axillary l ymph node September 28, 2024 10:34am Liver metastases September 28, 2024 10:34 am Malignant neoplasm of overla pping sites of left breast in female, estrogen September 28, 2024 10:34am Malignant neoplasm of right kidney, exce pt renal pelvis September 28, 2024 10:34am Anemia October 05, 2024 10:25 am Bone metastases October 05, 2024 10:25 am Breast cancer metastasized to axillary l ymph node October 05, 2024 10:25am Iron deficiency anemia due to chronic bl ood loss October 05, 2024 10:25am Liver metastases October 05, 2024 10:25 am Malignant neoplasm of overla pping sites of left breast in female, estrogen October 05, 2024 10:25am Malignant neoplasm of right kidney, exce pt renal pelvis October 05, 2024 10:25am Anemia October 19, 2024 9:13a m Bone metastases October 19, 2024 9:13a m Breast cancer metastasized to axillary l ymph node October 19, 2024 9:13am Iron deficiency anemia due to chronic bl ood loss October 19, 2024 9:13am Liver metastases October 19, 2024 9:13a m Malignant neoplasm of overla pping sites of left breast in female, estrogen October 19, 2024 9:13am Malignant neoplasm of right kidney, exce pt renal pelvis October 19, 2024 9:13am Anemia October 26, 2024 9:44 am Bone metastases October 26, 2024 9:44 am Breast cancer metastasized to axillary l ymph node October 26, 2024 9:44am Iron deficiency anemia due to chronic bl ood loss October 26, 2024 9:44am Liver metastases October 26, 2024 9:44 am Malignant neoplasm of overla pping sites of left breast in female, estrogen October 26, 2024 9:44am Malignant neoplasm of right kidney, exce pt renal pelvis October 26, 2024 9:44am Anemia November 09, 2024 10:3 7am Bone metastases November 09, 2024 10:3 7am Breast cancer metastasized to axillary l ymph node November 09, 2024 10:37am Iron deficiency anemia due to chronic bl ood loss November 09, 2024 10:37am Liver metastases November 09, 2024 10:3 7am Malignant neoplasm of overla pping sites of left breast in female, estrogen November 09, 2024 10:37am Malignant neoplasm of right kidney, exce pt renal pelvis November 09, 2024 10:37am Anemia November 16, 2024 9:55a m Bone metastases November 16, 2024 9:55a m Breast cancer metastasized to axillary l ymph node November 16, 2024 9:55am Iron deficiency anemia due to chronic bl ood loss November 16, 2024 9:55am Liver metastases November 16, 2024 9:55a m Malignant neoplasm of overla pping sites of left breast in female, estrogen November 16, 2024 9:55am Malignant neoplasm of right kidney, exce pt renal pelvis November 16, 2024 9:55am Anemia November 21, 2024 10:08 am Bone metastases November 21, 2024 10:08 am Breast cancer metastasized to axillary l ymph node November 21, 2024 10:08am Iron deficiency anemia due to chronic bl ood loss November 21, 2024 10:08am Liver metastases November 21, 2024 10:08 am Malignant neoplasm of overla pping sites of left breast in female, estrogen November 21, 2024 10:08am Malignant neoplasm of right kidney, exce pt renal pelvis November 21, 2024 10:08am Chief Complaint Admit Date 1 WEEK LABS TX September 14, 2024 10:22a m 2 WKS - LABS - TRODELVY September 28, 2024 1 0:34am 1 WK - LABS - TRODELVY October 05, 2024 10 :25am 2 WKS - LABS - TRODELVY October 19, 2024 9 :13am 1 WK - LABS - TRODELVY October 26, 2024 9 :44am 2 WKS - LABS - TRODELVY November 09, 2024 10:37am 1 WK - LABS - TRODELVY November 16, 2024 9: 55am BREAST CANCER November 20, 2024 7:57a m REVIEW CT SCAN November 21, 2024 10:08 am CANCER November 24, 2024 7:34 am NEW START - LABS - [place] December 21, 2024 7:26am 3WKS LABS TX January 11, 2025 12 :19pm [email or web address] January 11, 2025 12 :30pm Reason for Visit Admit Date Anemia September 14, 2024 10:22a m Bone metastases September 14, 2024 10:22a m Breast cancer metastasized to axillary l ymph node September 14, 2024 10:22am Liver metastases September 14, 2024 10:22a m Malignant neoplasm of overla pping sites of left breast in female, estrogen September 14, 2024 10:22am Malignant neoplasm of right kidney, exce pt renal pelvis September 14, 2024 10:22am Central line complication September 28, 2024 10:34am Anemia September 28, 2024 10:34 am Bone metastases September 28, 2024 10:34 am Breast cancer metastasized to axillary l ymph node September 28, 2024 10:34am Liver metastases September 28, 2024 10:34 am Malignant neoplasm of overla pping sites of left breast in female, estrogen September 28, 2024 10:34am Malignant neoplasm of right kidney, exce pt renal pelvis September 28, 2024 10:34am Anemia October 05, 2024 10:25 am Bone metastases October 05, 2024 10:25 am Breast cancer metastasized to axillary l ymph node October 05, 2024 10:25am Iron deficiency anemia due to chronic bl ood loss October 05, 2024 10:25am Liver metastases October 05, 2024 10:25 am Malignant neoplasm of overla pping sites of left breast in female, estrogen October 05, 2024 10:25am Malignant neoplasm of right kidney, exce pt renal pelvis October 05, 2024 10:25am Anemia October 19, 2024 9:13a m Bone metastases October 19, 2024 9:13a m Breast cancer metastasized to axillary l ymph node October 19, 2024 9:13am Iron deficiency anemia due to chronic bl ood loss October 19, 2024 9:13am Liver metastases October 19, 2024 9:13a m Malignant neoplasm of overla pping sites of left breast in female, estrogen October 19, 2024 9:13am Malignant neoplasm of right kidney, exce pt renal pelvis October 19, 2024 9:13am Anemia October 26, 2024 9:44 am Bone metastases October 26, 2024 9:44 am Breast cancer metastasized to axillary l ymph node October 26, 2024 9:44am Iron deficiency anemia due to chronic bl ood loss October 26, 2024 9:44am Liver metastases October 26, 2024 9:44 am Malignant neoplasm of overla pping sites of left breast in female, estrogen October 26, 2024 9:44am Malignant neoplasm of right kidney, exce pt renal pelvis October 26, 2024 9:44am Anemia November 09, 2024 10:3 7am Bone metastases November 09, 2024 10:3 7am Breast cancer metastasized to axillary l ymph node November 09, 2024 10:37am Iron deficiency anemia due to chronic bl ood loss November 09, 2024 10:37am Liver metastases November 09, 2024 10:3 7am Malignant neoplasm of overla pping sites of left breast in female, estrogen November 09, 2024 10:37am Malignant neoplasm of right kidney, exce pt renal pelvis November 09, 2024 10:37am Anemia November 16, 2024 9:55a m Bone metastases November 16, 2024 9:55a m Breast cancer metastasized to axillary l ymph node November 16, 2024 9:55am Iron deficiency anemia due to chronic bl ood loss November 16, 2024 9:55am Liver metastases November 16, 2024 9:55a m Malignant neoplasm of overla pping sites of left breast in female, estrogen November 16, 2024 9:55am Malignant neoplasm of right kidney, exce pt renal pelvis November 16, 2024 9:55am Anemia November 21, 2024 10:08 am Bone metastases November 21, 2024 10:08 am Breast cancer metastasized to axillary l ymph node November 21, 2024 10:08am Iron deficiency anemia due to chronic bl ood loss November 21, 2024 10:08am Liver metastases November 21, 2024 10:08 am Malignant neoplasm of overla pping sites of left breast in female, estrogen November 21, 2024 10:08am Malignant neoplasm of right kidney, exce pt renal pelvis November 21, 2024 10:08am Encounter for chemotherapy management Au 2024 7:26am Anemia December 21, 2024 7:2 6am Bone metastases December 21, 2024 7:2 6am Breast cancer metastasized to axillary l ymph node December 21, 2024 7:26am Liver metastases December 21, 2024 7:2 6am Malignant neoplasm of overla pping sites of left breast in female, estrogen December 21, 2024 7:26am Malignant neoplasm of right kidney, exce pt renal pelvis December 21, 2024 7:26am Anemia January 11, 2025 12 :19pm Bone metastases January 11, 2025 12 :19pm Breast cancer metastasized to axillary l ymph node January 11, 2025 12:19pm Iron deficiency anemia due to chronic bl ood loss January 11, 2025 12:19pm Liver metastases January 11, 2025 12 :19pm Malignant neoplasm of overla pping sites of left breast in female, estrogen January 11, 2025 12:19pm Malignant neoplasm of right kidney, exce pt renal pelvis January 11, 2025 12:19pm Chief Complaint Admit Date 2 WKS - LABS - TRODELVY October 19, 2024 9 :13am 1 WK - LABS - TRODELVY October 26, 2024 9 :44am 2 WKS - LABS - TRODELVY November 09, 2024 10:37am 1 WK - LABS - TRODELVY November 16, 2024 9: 55am BREAST CANCER November 20, 2024 7:57a m REVIEW CT SCAN November 21, 2024 10:08 am CANCER November 24, 2024 7:34 am [facility] - LABS - [place] December 21, 2024 7:26am 3WKS LABS TX January 11, 2025 12 :19pm 1WK LABS TX February 01, 2025 12:23pm [email or web address] February 01, 2025 12:30pm Reason for Visit Admit Date Anemia October 19, 2024 9:13a m Bone metastases October 19, 2024 9:13a m Breast cancer metastasized to axillary l ymph node October 19, 2024 9:13am Iron deficiency anemia due to chronic bl ood loss October 19, 2024 9:13am Liver metastases October 19, 2024 9:13a m Malignant neoplasm of overla pping sites of left breast in female, estrogen October 19, 2024 9:13am Malignant neoplasm of right kidney, exce pt renal pelvis October 19, 2024 9:13am Anemia October 26, 2024 9:44 am Bone metastases October 26, 2024 9:44 am Breast cancer metastasized to axillary l ymph node October 26, 2024 9:44am Iron deficiency anemia due to chronic bl ood loss October 26, 2024 9:44am Liver metastases October 26, 2024 9:44 am Malignant neoplasm of overla pping sites of left breast in female, estrogen October 26, 2024 9:44am Malignant neoplasm of right kidney, exce pt renal pelvis October 26, 2024 9:44am Anemia November 09, 2024 10:3 7am Bone metastases November 09, 2024 10:3 7am Breast cancer metastasized to axillary l ymph node November 09, 2024 10:37am Iron deficiency anemia due to chronic bl ood loss November 09, 2024 10:37am Liver metastases November 09, 2024 10:3 7am Malignant neoplasm of overla pping sites of left breast in female, estrogen November 09, 2024 10:37am Malignant neoplasm of right kidney, exce pt renal pelvis November 09, 2024 10:37am Anemia November 16, 2024 9:55a m Bone metastases November 16, 2024 9:55a m Breast cancer metastasized to axillary l ymph node November 16, 2024 9:55am Iron deficiency anemia due to chronic bl ood loss November 16, 2024 9:55am Liver metastases November 16, 2024 9:55a m Malignant neoplasm of overla pping sites of left breast in female, estrogen November 16, 2024 9:55am Malignant neoplasm of right kidney, exce pt renal pelvis November 16, 2024 9:55am Anemia November 21, 2024 10:08 am Bone metastases November 21, 2024 10:08 am Breast cancer metastasized to axillary l ymph node November 21, 2024 10:08am Iron deficiency anemia due to chronic bl ood loss November 21, 2024 10:08am Liver metastases November 21, 2024 10:08 am Malignant neoplasm of overla pping sites of left breast in female, estrogen November 21, 2024 10:08am Malignant neoplasm of right kidney, exce pt renal pelvis November 21, 2024 10:08am Encounter for chemotherapy management Au 2024 7:26am Anemia December 21, 2024 7:2 6am Bone metastases December 21, 2024 7:2 6am Breast cancer metastasized to axillary l ymph node December 21, 2024 7:26am Liver metastases December 21, 2024 7:2 6am Malignant neoplasm of overla pping sites of left breast in female, estrogen December 21, 2024 7:26am Malignant neoplasm of right kidney, exce pt renal pelvis December 21, 2024 7:26am Anemia January 11, 2025 12 :19pm Bone metastases January 11, 2025 12 :19pm Breast cancer metastasized to axillary l ymph node January 11, 2025 12:19pm Iron deficiency anemia due to chronic bl ood loss January 11, 2025 12:19pm Liver metastases January 11, 2025 12 :19pm Malignant neoplasm of overla pping sites of left breast in female, estrogen January 11, 2025 12:19pm Malignant neoplasm of right kidney, exce pt renal pelvis January 11, 2025 12:19pm Anemia February 01, 2025 12:23pm Bone metastases February 01, 2025 12:23pm Breast cancer metastasized to axillary l ymph node February 01, 2025 12:23pm Iron deficiency anemia due to chronic bl ood loss February 01, 2025 12:23pm Liver metastases February 01, 2025 12:23pm Malignant neoplasm of overla pping sites of left breast in female, estrogen February 01, 2025 12:23pm Malignant neoplasm of right kidney, exce pt renal pelvis February 01, 2025 12:23pm Chief Complaint Admit Date 2 WKS - LABS - TRODELVY November 09, 2024 10:37am 1 WK - LABS - TRODELVY November 16, 2024 9: 55am BREAST CANCER November 20, 2024 7:57a m REVIEW CT SCAN November 21, 2024 10:08 am CANCER November 24, 2024 7:34 am NEW START - LABS - [place] December 21, 2024 7:26am 3WKS LABS TX January 11, 2025 12 :19pm 1WK LABS TX February 01, 2025 12:23pm 3 WKS - LABS - TAXOT[place] February 22 12:22pm [email or web address] February 22, 2025 12 :30pm Reason for Visit Admit Date Anemia November 09, 2024 10:3 7am Bone metastases November 09, 2024 10:3 7am Breast cancer metastasized to axillary l ymph node November 09, 2024 10:37am Iron deficiency anemia due to chronic bl ood loss November 09, 2024 10:37am Liver metastases November 09, 2024 10:3 7am Malignant neoplasm of overla pping sites of left breast in female, estrogen November 09, 2024 10:37am Malignant neoplasm of right kidney, exce pt renal pelvis November 09, 2024 10:37am Anemia November 16, 2024 9:55a m Bone metastases November 16, 2024 9:55a m Breast cancer metastasized to axillary l ymph node November 16, 2024 9:55am Iron deficiency anemia due to chronic bl ood loss November 16, 2024 9:55am Liver metastases November 16, 2024 9:55a m Malignant neoplasm of overla pping sites of left breast in female, estrogen November 16, 2024 9:55am Malignant neoplasm of right kidney, exce pt renal pelvis November 16, 2024 9:55am Anemia November 21, 2024 10:08 am Bone metastases November 21, 2024 10:08 am Breast cancer metastasized to axillary l ymph node November 21, 2024 10:08am Iron deficiency anemia due to chronic bl ood loss November 21, 2024 10:08am Liver metastases November 21, 2024 10:08 am Malignant neoplasm of overla pping sites of left breast in female, estrogen November 21, 2024 10:08am Malignant neoplasm of right kidney, exce pt renal pelvis November 21, 2024 10:08am Encounter for chemotherapy management Au 2024 7:26am Anemia December 21, 2024 7:2 6am Bone metastases December 21, 2024 7:2 6am Breast cancer metastasized to axillary l ymph node December 21, 2024 7:26am Liver metastases December 21, 2024 7:2 6am Malignant neoplasm of overla pping sites of left breast in female, estrogen December 21, 2024 7:26am Malignant neoplasm of right kidney, exce pt renal pelvis December 21, 2024 7:26am Anemia January 11, 2025 12 :19pm Bone metastases January 11, 2025 12 :19pm Breast cancer metastasized to axillary l ymph node January 11, 2025 12:19pm Iron deficiency anemia due to chronic bl ood loss January 11, 2025 12:19pm Liver metastases January 11, 2025 12 :19pm Malignant neoplasm of overla pping sites of left breast in female, estrogen January 11, 2025 12:19pm Malignant neoplasm of right kidney, exce pt renal pelvis January 11, 2025 12:19pm Anemia February 01, 2025 12:23pm Bone metastases February 01, 2025 12:23pm Breast cancer metastasized to axillary l ymph node February 01, 2025 12:23pm Iron deficiency anemia due to chronic bl ood loss February 01, 2025 12:23pm Liver metastases February 01, 2025 12:23pm Malignant neoplasm of overla pping sites of left breast in female, estrogen February 01, 2025 12:23pm Malignant neoplasm of right kidney, exce pt renal pelvis February 01, 2025 12:23pm Anemia February 22, 2025 12 :22pm Bone metastases February 22, 2025 12 :22pm Breast cancer metastasized to axillary l ymph node February 22, 2025 12:22pm Iron deficiency anemia due to chronic bl ood loss February 22, 2025 12:22pm Liver metastases February 22, 2025 12 :22pm Malignant neoplasm of overla pping sites of left breast in female, estrogen February 22, 2025 12:22pm Malignant neoplasm of right kidney, exce pt renal pelvis February 22, 2025 12:22pm Additional Source Comments INFORMATION SOURCE (unrecogn ized section and content) DATE CREATED AUTHOR 07/18/2021 [facility] DATE CREATED AUTHOR AUTHOR'S ORGANIZ ATION 12/18/2021 [facility] DATE CREATED AUTHOR AUTHOR'S ORGANIZ ATION 03/17/2025 [facility] Source Comments (unrecognize d section and content) In the event this informatio n is protected by the Federal Confidentiality of Alcohol and Drug Abuse Patient Records regulations: The Federal rules restrict any use of the information to criminally investigate or prosecute any alcohol or drug abuse patient.[facility] the event this information is protected by the Federal Confidentiality of Alcohol and Drug Abuse Patient Records regulations: The Federal rules restrict any use of the information to criminally investigate or prosecute any alcohol or drug abuse patient.[facility] the event this information is protected by the Federal Confidentiality of Alcohol and Drug Abuse Patient Records regulations: The Federal rules restrict any use of the information to criminally investigate or prosecute any alcohol or drug abuse patient.[facility] the event this information is protected by the Federal Confidentiality of Alcohol and Drug Abuse Patient Records regulations: The Federal rules restrict any use of the information to criminally investigate or prosecute any alcohol or drug abuse patient.[facility] the event this information is protected by the Federal Confidentiality of Alcohol and Drug Abuse Patient Records regulations: The Federal rules restrict any use of the information to criminally investigate or prosecute any alcohol or drug abuse patient.[facility] the event this information is protected by the Federal Confidentiality of Alcohol and Drug Abuse Patient Records regulations: The Federal rules restrict any use of the information to criminally investigate or prosecute any alcohol or drug abuse patient.[facility] the event this information is protected by the Federal Confidentiality of Alcohol and Drug Abuse Patient Records regulations: The Federal rules restrict any use of the information to criminally investigate or prosecute any alcohol or drug abuse patient.[facility] the event this information is protected by the Federal Confidentiality of Alcohol and Drug Abuse Patient Records regulations: The Federal rules restrict any use of the information to criminally investigate or prosecute any alcohol or drug abuse patient.[facility] the event this information is protected by the Federal Confidentiality of Alcohol and Drug Abuse Patient Records regulations: The Federal rules restrict any use of the information to criminally investigate or prosecute any alcohol or drug abuse patient.[facility] the event this information is protected by the Federal Confidentiality of Alcohol and Drug Abuse Patient Records regulations: The Federal rules restrict any use of the information to criminally investigate or prosecute any alcohol or drug abuse patient.[facility] the event this information is protected by the Federal Confidentiality of Alcohol and Drug Abuse Patient Records regulations: The Federal rules restrict any use of the information to criminally investigate or prosecute any alcohol or drug abuse patient.[facility] the event this information is protected by the Federal Confidentiality of Alcohol and Drug Abuse Patient Records regulations: The Federal rules restrict any use of the information to criminally investigate or prosecute any alcohol or drug abuse patient.[facility] the event this information is protected by the Federal Confidentiality of Alcohol and Drug Abuse Patient Records regulations: The Federal rules restrict any use of the information to criminally investigate or prosecute any alcohol or drug abuse patient.[facility] Care Teams (unrecognized sec tion and content) Gang Ripsaw Operator Relationship Specialty Start Date End Date Philly Garcia MD PCP - General Internal Medicine 08/30/15 Alvarado Orellana MD, [address] [place] [address] Physician Radiation Oncology 03/05/16 Monica Bolton RN Specialty Itinerant Teacher Assistant 10/25/17 Alvarado Orellana MD, [address] [place] [address] Physician Radiation Oncology 05/23/18 Gang Ripsaw Operator Relationship Specialty Start Date End Date Philly Garcia MD PCP - General Internal Medicine 08/30/15 Alvarado Orellana MD, [address] [place] [address] Physician Radiation Oncology 03/05/16 Monica Bolton RN Specialty Itinerant Teacher Assistant 10/25/17 Alvarado Orellana MD, [address] [place] [address] Physician Radiation Oncology 05/23/18 Gang Ripsaw Operator Relationship Specialty Start Date End Date Philly Garcia MD PCP - General Internal Medicine 08/30/15 Alvarado Orellana MD, [address] [place] [address] Physician Radiation Oncology 03/05/16 Monica Bolton RN Specialty Itinerant Teacher Assistant 10/25/17 Alvarado Orellana MD, [address] [place] [address] Physician Radiation Oncology 05/23/18 Gang Ripsaw Operator Relationship Specialty Start Date End Date Philly Garcia MD PCP - General Internal Medicine 08/30/15 Alvarado Orellana MD, [address] [place] [address] Physician Radiation Oncology 03/05/16 Monica Bolton RN Specialty Itinerant Teacher Assistant 10/25/17 Alvarado Orellana MD, [address] [place] [address] Physician Radiation Oncology 05/23/18 Gang Ripsaw Operator Relationship Specialty Start Date End Date Philly Garcia MD PCP - General Internal Medicine 08/30/15 Alvarado Orellana MD, [address] [place] [address] Physician Radiation Oncology 03/05/16 Monica Bolton RN Specialty Itinerant Teacher Assistant 10/25/17 Alvarado Orellana MD, [address] [place] [address] Physician Radiation Oncology 05/23/18 Gang Ripsaw Operator Relationship Specialty Start Date End Date Philly Garcia MD PCP - General Internal Medicine 08/30/15 Alvarado Orellana MD, [address] [place] [address] Physician Radiation Oncology 03/05/16 Monica Bolton RN Specialty Itinerant Teacher Assistant 10/25/17 Alvarado Orellnaa MD, [address] [place] [address] Physician Radiation Oncology 05/23/18 Gang Ripsaw Operator Relationship Specialty Start Date End Date Philly Garcia MD PCP - General Internal Medicine 08/30/15 Alvarado Orellana MD, [address] [place] [address] Physician Radiation Oncology 03/05/16 Monica Bolton RN Specialty Itinerant Teacher Assistant 10/25/17 Alvarado Orellana MD, [address] [place] [address] Physician Radiation Oncology 05/23/18 Gang Ripsaw Operator Relationship Specialty Start Date End Date Philly Garcia MD PCP - General Internal Medicine 08/30/15 Alvarado Orellana MD, [address] [place] [address] Physician Radiation Oncology 03/05/16 Monica Bolton RN Specialty Itinerant Teacher Assistant 10/25/17 Alvarado Orellana MD, [address] [place] [address] Physician Radiation Oncology 05/23/18 Gang Ripsaw Operator Relationship Specialty Start Date End Date Philly Garcia MD PCP - General Internal Medicine 08/30/15 Alvarado Orellana MD, [address] [place] [address] Physician Radiation Oncology 03/05/16 Monica Bolton RN Specialty Itinerant Teacher Assistant 10/25/17 Alvarado Orellana MD, [address] [place] [address] Physician Radiation Oncology 05/23/18 Gang Ripsaw Operator Relationship Specialty Start Date End Date Philly Garcia MD PCP - General Internal Medicine 08/30/15 Alvarado Orellana MD, [address] [place] [address] Physician Radiation Oncology 03/05/16 Monica Bolton RN Specialty Itinerant Teacher Assistant 10/25/17 Alvarado Orellana MD, [address] [place] [address] Physician Radiation Oncology 05/23/18 Team Status: Active Member Role Status Dates Dr. Philly Garcia MD Family Provider Active Dr. Philly Garcia MD Primary Care Provider Active Team Status: Inactive Member Role Status Dates Dr. Philly Garcia MD Primary Care Provider, Referring Provider Active Neha Luciano COORDINATE MEASURING EQUIPMENT OPERATOR, COORDINATE MEASURING EQUIPMENT OPERATOR-C Attending Provider Active Team Status: Inactive Member Role Status Dates Dr. Philly Garcia MD Primary Care Provider, Referring Provider Active Dr. Olivia Castillo MD Attending Provider Active Team Status: Active Member Role Status Dates Dr. Philly Garcia MD Primary Care Provider Active Dr. Jose Luis Hidalgo MD Attending Provider Active Team Status: Active Member Role Status Dates Dr. Philly Garcia MD Primary Care Provider Active Dr. Olivia Castillo MD Attending Provider, Referrin g Provider Active Team Status: Inactive Member Role Status Dates Dr. Philly Garcia MD Primary Care Provider Active Dr. Olivia Castillo MD Attending Provider, Referrin g Provider Active Team Status: Inactive Member Role Status Dates Dr. Philly Garcia MD Primary Care Provider Active Dr. Olivia Castillo MD Attending Provider Active Gang Ripsaw Operator Relationship Specialty Start Date End Date Philly Garcia MD PCP - General Internal Medicine 08/30/15 Alvarado Orellana MD, MD [address] [place], [place] [address] Physician Radiation Oncology 03/05/16 Monica Bolton RN Specialty Itinerant Teacher Assistant 10/25/17 Alvarado Orellana MD, [address] [place] [address] Physician Radiation Oncology 05/23/18 Team Status: Inactive Member Role Status Dates Dr. Philly Garcia MD Primary Care Provider Active Neha Luciano COORDINATE MEASURING EQUIPMENT OPERATOR, COORDINATE MEASURING EQUIPMENT OPERATOR-C Attending Provider Active Team Status: Inactive Member Role Status Dates Dr. Philly Garcia MD Primary Care Provider Active Neha Luciano COORDINATE MEASURING EQUIPMENT OPERATOR, COORDINATE MEASURING EQUIPMENT OPERATOR-C Attending Provider, Referring Provider Active Team Status: Active Member Role Status Dates Dr. Philly Garcia MD Primary Care Provider Active Neha Luciano COORDINATE MEASURING EQUIPMENT OPERATOR, COORDINATE MEASURING EQUIPMENT OPERATOR-C Attending Provider, Referring Provider Active Team Status: Active Member Role Status Dates Dr. Philly Garcia MD Primary Care Provider Active Team Status: Inactive Member Role Status Dates Dr. Philly Garcia MD Primary Care Provider Active Start: April 17, 2024 End: April 17, 2024 Neha Luciano COORDINATE MEASURING EQUIPMENT OPERATOR, COORDINATE MEASURING EQUIPMENT OPERATOR-C Attending Provider Active Start: April 17, 2024 End: April 17, 2024 Neha Luciano COORDINATE MEASURING EQUIPMENT OPERATOR, COORDINATE MEASURING EQUIPMENT OPERATOR-C Referring Provider Active Start: April 17, 2024 End: April 17, 2024 Team Status: Inactive Member Role Status Dates Dr. Philly Garcia MD Primary Care Provider Active Start: May 01, 2024 End: May 01, 2024 Dr. Philly Garcia MD Referring Provider Active Start: May 01, 2024 End: May 01, 2024 Dr. Olivia Castillo MD Attending Provider Active Start: May 01, 2024 End: May 01, 2024 Team Status: Inactive Member Role Status Dates Dr. Philly Garcia MD Primary Care Provider Active Start: May 29, 2024 End: May 29, 2024 Dr. Philly Garcia MD Referring Provider Active Start: May 29, 2024 End: May 29, 2024 Dr. Olivia Castillo MD Attending Provider Active Start: May 29, 2024 End: May 29, 2024 Team Status: Inactive Member Role Status Dates Dr. Philly Garcia MD Primary Care Provider Active Start: June 26, 2024 End: June 26, 2024 Dr. Philly Garcia MD Referring Provider Active Start: June 26, 2024 End: June 26, 2024 Dr. Olivia Castillo MD Attending Provider Active Start: June 26, 2024 End: June 26, 2024 Team Status: Active Member Role Status Dates Dr. Philly Garcia MD Primary Care Provider Active Start: July 24, 2024 Dr. Olivia Castillo MD Attending Provider Active Start: July 24, 2024 Dr. Olivia Castillo MD Referring Provider Active Start: July 24, 2024 Team Status: Inactive Member Role Status Dates Dr. Philly Garcia MD Primary Care Provider Active Start: July 24, 2024 End: July 24, 2024 Dr. hPilly Garcia MD Referring Provider Active Start: July 24, 2024 End: July 24, 2024 Dr. Olivia Castillo MD Attending Provider Active Start: July 24, 2024 End: July 24, 2024 Team Status: Inactive Member Role Status Dates Dr. Philly Garcia MD Primary Care Provider Active Start: August 07, 2024 End: August 07, 2024 Dr. Olivia Castillo MD Attending Provider Active Start: August 07, 2024 End: August 07, 2024 Dr. Olivia Castillo MD Referring Provider Active Start: August 07, 2024 End: August 07, 2024 Team Status: Inactive Member Role Status Dates Dr. Philly Garcia MD Primary Care Provider Active Start: August 09, 2024 End: August 09, 2024 Dr. Philly Garcia MD Referring Provider Active Start: August 09, 2024 End: August 09, 2024 Neha Luciano COORDINATE MEASURING EQUIPMENT OPERATOR, COORDINATE MEASURING EQUIPMENT OPERATOR-C Attending Provider Active Start: August 09, 2024 End: August 09, 2024 Team Status: Active Member Role Status Dates Dr. Philly Garcia MD Primary Care Provider Active Start: August 10, 2024 Dr. Oliiva Castillo MD Attending Provider Active Start: August 10, 2024 Dr. Olivia Castillo MD Referring Provider Active Start: August 10, 2024 Team Status: Inactive Member Role Status Dates Dr. Philly Garcia MD Primary Care Provider Active Start: August 10, 2024 End: August 10, 2024 Dr. Olivia Castillo MD Attending Provider Active Start: August 10, 2024 End: August 10, 2024 Dr. Olivia Castillo MD Referring Provider Active Start: August 10, 2024 End: August 10, 2024 Team Status: Inactive Member Role Status Dates Dr. Philly Garcia MD Primary Care Provider Active Start: August 18, 2024 End: August 18, 2024 Dr. Sheila Avila DO Emergency Provider Active Start: August 18, 2024 End: August 18, 2024 Team Status: Inactive Member Role Status Dates Dr. Philly Garcia MD Primary Care Provider Active Start: August 18, 2024 End: August 18, 2024 Dr. Sheila Avila DO Attending Provider Active Start: August 18, 2024 End: August 18, 2024 Dr. Sheila Avila DO Emergency Provider Active Start: August 18, 2024 End: August 18, 2024 Team Status: Inactive Member Role Status Dates Dr. Philly Garcia MD Primary Care Provider Active Start: August 28, 2024 End: August 28, 2024 Neha Luciano COORDINATE MEASURING EQUIPMENT OPERATOR, COORDINATE MEASURING EQUIPMENT OPERATOR-C Attending Provider Active Start: August 28, 2024 End: August 28, 2024 Neha Luciano COORDINATE MEASURING EQUIPMENT OPERATOR, COORDINATE MEASURING EQUIPMENT OPERATOR-C Referring Provider Active Start: August 28, 2024 End: August 28, 2024 Team Status: Inactive Member Role Status Dates Dr. Philly Garcia MD Primary Care Provider Active Start: September 07, 2024 End: September 07, 2024 Dr. Philly Garcia MD Referring Provider Active Start: September 07, 2024 End: September 07, 2024 Dr. Olivia Castillo MD Attending Provider Active Start: September 07, 2024 End: September 07, 2024 Team Status: Inactive Member Role Status Dates Dr. Philly Garcia MD Primary Care Provider Active Start: September 14, 2024 End: September 14, 2024 Dr. Philly Garcia MD Referring Provider Active Start: September 14, 2024 End: September 14, 2024 Neha Luciano COORDINATE MEASURING EQUIPMENT OPERATOR, COORDINATE MEASURING EQUIPMENT OPERATOR-C Attending Provider Active Start: September 14, 2024 End: September 14, 2024 Team Status: Active Member Role Status Dates Dr. Philly Garcia MD Primary Care Provider Active Start: September 28, 2024 Dr. Olivia Castillo MD Attending Provider Active Start: September 28, 2024 Dr. Olivia Castillo MD Referring Provider Active Start: September 28, 2024 Team Status: Inactive Member Role Status Dates Dr. Philly Garcia MD Primary Care Provider Active Start: September 28, 2024 End: September 28, 2024 Dr. Philly Garcia MD Referring Provider Active Start: September 28, 2024 End: September 28, 2024 Neha Luciano COORDINATE MEASURING EQUIPMENT OPERATOR, COORDINATE MEASURING EQUIPMENT OPERATOR-C Attending Provider Active Start: September 28, 2024 End: September 28, 2024 Team Status: Inactive Member Role Status Dates Dr. Philly Garcia MD Primary Care Provider Active Start: October 05, 2024 End: October 05, 2024 Dr. Philly Garcia MD Referring Provider Active Start: October 05, 2024 End: October 05, 2024 Dr. Olivia Castillo MD Attending Provider Active Start: October 05, 2024 End: October 05, 2024 Team Status: Inactive Member Role Status Dates Dr. Philly Garcia MD Primary Care Provider Active Start: October 19, 2024 End: October 19, 2024 Dr. Philly Garcia MD Referring Provider Active Start: October 19, 2024 End: October 19, 2024 Neha Luciano COORDINATE MEASURING EQUIPMENT OPERATOR, COORDINATE MEASURING EQUIPMENT OPERATOR-C Attending Provider Active Start: October 19, 2024 End: October 19, 2024 Team Status: Active Member Role Status Dates Dr. Philly Garcia MD Primary Care Provider Active Start: October 19, 2024 Dr. Olivia Castillo MD Attending Provider Active Start: October 19, 2024 Dr. Olivia Castillo MD Referring Provider Active Start: October 19, 2024 Team Status: Inactive Member Role Status Dates Dr. Philly Garcia MD Primary Care Provider Active Start: October 26, 2024 End: October 26, 2024 Dr. Philly Garcia MD Referring Provider Active Start: October 26, 2024 End: October 26, 2024 Neha Luciano COORDINATE MEASURING EQUIPMENT OPERATOR, COORDINATE MEASURING EQUIPMENT OPERATOR-C Attending Provider Active Start: October 26, 2024 End: October 26, 2024 Team Status: Active Member Role Status Dates Dr. Philly Garcia MD Primary Care Provider Active Start: October 26, 2024 Dr. Olivia Castillo MD Attending Provider Active Start: October 26, 2024 Dr. Olivia Castillo MD Referring Provider Active Start: October 26, 2024 Team Status: Inactive Member Role Status Dates Dr. Philly Garcia MD Primary Care Provider Active Start: November 09, 2024 End: November 09, 2024 Dr. Philly Garcia MD Referring Provider Active Start: November 09, 2024 End: November 09, 2024 Dr. Olivia Castillo MD Attending Provider Active Start: November 09, 2024 End: November 09, 2024 Team Status: Active Member Role Status Dates Dr. Philly Garcia MD Primary Care Provider Active Start: November 09, 2024 Dr. Olivia Castillo MD Attending Provider Active Start: November 09, 2024 Dr. Olivia Castillo MD Referring Provider Active Start: November 09, 2024 Team Status: Active Member Role/Relationship Status Dates Dr. Philly Garcia MD Primary Care Provider Active Team Status: Inactive Member Role/Relationship Status Dates Dr. Philly Garcia MD Primary Care Provider Active Start: July 24, 2024 End: July 24, 2024 Dr. Philly Garcia MD Referring Provider Active Start: July 24, 2024 End: July 24, 2024 Dr. Olivia Castillo MD Attending Provider Active Start: July 24, 2024 End: July 24, 2024 Team Status: Inactive Member Role/Relationship Status Dates Dr. Philly Garcia MD Primary Care Provider Active Start: August 07, 2024 End: August 07, 2024 Dr. Olivia Castillo MD Attending Provider Active Start: August 07, 2024 End: August 07, 2024 Dr. Olivia Castillo MD Referring Provider Active Start: August 07, 2024 End: August 07, 2024 Team Status: Inactive Member Role/Relationship Status Dates Dr. Philly Garcia MD Primary Care Provider Active Start: August 09, 2024 End: August 09, 2024 Dr. Philly Garcia MD Referring Provider Active Start: August 09, 2024 End: August 09, 2024 Neha Lucinao COORDINATE MEASURING EQUIPMENT OPERATOR, COORDINATE MEASURING EQUIPMENT OPERATOR-C Attending Provider Active Start: August 09, 2024 End: August 09, 2024 Team Status: Inactive Member Role/Relationship Status Dates Dr. Philly Garcia MD Primary Care Provider Active Start: August 10, 2024 End: August 10, 2024 Dr. Olivia Castillo MD Attending Provider Active Start: August 10, 2024 End: August 10, 2024 Dr. Olivia Castillo MD Referring Provider Active Start: August 10, 2024 End: August 10, 2024 Team Status: Inactive Member Role/Relationship Status Dates Dr. Philly Garcia MD Primary Care Provider Active Start: August 18, 2024 End: August 18, 2024 Dr. Sheila Avila DO Attending Provider Active Start: August 18, 2024 End: August 18, 2024 Dr. Sheila Avila DO Emergency Provider Active Start: August 18, 2024 End: August 18, 2024 Team Status: Inactive Member Role/Relationship Status Dates Dr. Philly Garcia MD Primary Care Provider Active Start: August 28, 2024 End: August 28, 2024 Neha RitchieAnkita COORDINATE MEASURING EQUIPMENT OPERATOR, COORDINATE MEASURING EQUIPMENT OPERATOR-C Attending Provider Active Start: August 28, 2024 End: August 28, 2024 Nehakaris Luciano COORDINATE MEASURING EQUIPMENT OPERATOR, COORDINATE MEASURING EQUIPMENT OPERATOR-C Referring Provider Active Start: August 28, 2024 End: August 28, 2024 Team Status: Inactive Member Role/Relationship Status Dates Dr. Philly Garcia MD Primary Care Provider Active Start: September 07, 2024 End: September 07, 2024 Dr. Philly Garcia MD Referring Provider Active Start: September 07, 2024 End: September 07, 2024 Dr. Olivia Castillo MD Attending Provider Active Start: September 07, 2024 End: September 07, 2024 Team Status: Inactive Member Role/Relationship Status Dates Dr. Philly Garcia MD Primary Care Provider Active Start: September 14, 2024 End: September 14, 2024 Dr. Philly Garcia MD Referring Provider Active Start: September 14, 2024 End: September 14, 2024 Neha Luciano COORDINATE MEASURING EQUIPMENT OPERATOR, COORDINATE MEASURING EQUIPMENT OPERATOR-C Attending Provider Active Start: September 14, 2024 End: September 14, 2024 Team Status: Inactive Member Role/Relationship Status Dates Dr. Philly Garcia MD Primary Care Provider Active Start: September 28, 2024 End: September 28, 2024 Dr. Philly Garcia MD Referring Provider Active Start: September 28, 2024 End: September 28, 2024 Neha Luciano COORDINATE MEASURING EQUIPMENT OPERATOR, COORDINATE MEASURING EQUIPMENT OPERATOR-C Attending Provider Active Start: September 28, 2024 End: September 28, 2024 Team Status: Inactive Member Role/Relationship Status Dates Dr. Philly Garcia MD Primary Care Provider Active Start: October 05, 2024 End: October 05, 2024 Dr. Philly Garcia MD Referring Provider Active Start: October 05, 2024 End: October 05, 2024 Dr. Olivia Castillo MD Attending Provider Active Start: October 05, 2024 End: October 05, 2024 Team Status: Inactive Member Role/Relationship Status Dates Dr. Philly Garcia MD Primary Care Provider Active Start: October 19, 2024 End: October 19, 2024 Dr. Philly Garcia MD Referring Provider Active Start: October 19, 2024 End: October 19, 2024 Neha Luciano COORDINATE MEASURING EQUIPMENT OPERATOR, COORDINATE MEASURING EQUIPMENT OPERATOR-C Attending Provider Active Start: October 19, 2024 End: October 19, 2024 Team Status: Inactive Member Role/Relationship Status Dates Dr. Philly Garcia MD Primary Care Provider Active Start: October 26, 2024 End: October 26, 2024 Dr. Philly Garcia MD Referring Provider Active Start: October 26, 2024 End: October 26, 2024 Neha Luciano COORDINATE MEASURING EQUIPMENT OPERATOR, COORDINATE MEASURING EQUIPMENT OPERATOR-C Attending Provider Active Start: October 26, 2024 End: October 26, 2024 Team Status: Inactive Member Role/Relationship Status Dates Dr. Philly Garcia MD Primary Care Provider Active Start: November 09, 2024 End: November 09, 2024 Dr. Philly Garcia MD Referring Provider Active Start: November 09, 2024 End: November 09, 2024 Dr. Olivia Castillo MD Attending Provider Active Start: November 09, 2024 End: November 09, 2024 Team Status: Inactive Member Role/Relationship Status Dates Dr. Philly Garcia MD Primary Care Provider Active Start: November 16, 2024 End: November 16, 2024 Dr. Philly Garcia MD Referring Provider Active Start: November 16, 2024 End: November 16, 2024 Neha Luciano COORDINATE MEASURING EQUIPMENT OPERATOR, COORDINATE MEASURING EQUIPMENT OPERATOR-C Attending Provider Active Start: November 16, 2024 End: November 16, 2024 Team Status: Active Member Role/Relationship Status Dates Dr. Philly Garcia MD Primary Care Provider Active Start: November 16, 2024 Dr. Olivia Castillo MD Attending Provider Active Start: November 16, 2024 Dr. Olivia Castillo MD Referring Provider Active Start: November 16, 2024 Team Status: Active Member Role/Relationship Status Dates Dr. Philly Garcia MD Primary Care Provider Active Start: November 20, 2024 Dr. Olivia Castillo MD Attending Provider Active Start: November 20, 2024 Dr. Olivia Castillo MD Referring Provider Active Start: November 20, 2024 Team Status: Inactive Member Role/Relationship Status Dates Dr. Philly Garcia MD Primary Care Provider Active Start: November 21, 2024 End: November 21, 2024 Dr. Philly Garcia MD Referring Provider Active Start: November 21, 2024 End: November 21, 2024 Dr. Olivia Castillo MD Attending Provider Active Start: November 21, 2024 End: November 21, 2024 Team Status: Inactive Member Role/Relationship Status Dates Dr. Philly Garcia MD Primary Care Provider Active Start: August 07, 2024 End: August 07, 2024 Dr. Olivia Castillo MD Attending Provider Active Start: August 07, 2024 End: August 07, 2024 Dr. Olivia Castillo MD Referring Provider Active Start: August 07, 2024 End: August 07, 2024 Team Status: Inactive Member Role/Relationship Status Dates Dr. Philly Garcia MD Primary Care Provider Active Start: August 09, 2024 End: August 09, 2024 Dr. Philly Garcia MD Referring Provider Active Start: August 09, 2024 End: August 09, 2024 Neha Luciano COORDINATE MEASURING EQUIPMENT OPERATOR, COORDINATE MEASURING EQUIPMENT OPERATOR-C Attending Provider Active Start: August 09, 2024 End: August 09, 2024 Team Status: Inactive Member Role/Relationship Status Dates Dr. Philly Garcia MD Primary Care Provider Active Start: August 10, 2024 End: August 10, 2024 Dr. Olivia Castillo MD Attending Provider Active Start: August 10, 2024 End: August 10, 2024 Dr. Olivia Castillo MD Referring Provider Active Start: August 10, 2024 End: August 10, 2024 Team Status: Inactive Member Role/Relationship Status Dates Dr. Philly Garcia MD Primary Care Provider Active Start: August 18, 2024 End: August 18, 2024 Dr. Sheila Avila DO Attending Provider Active Start: August 18, 2024 End: August 18, 2024 Dr. Sheila Avila DO Emergency Provider Active Start: August 18, 2024 End: August 18, 2024 Team Status: Inactive Member Role/Relationship Status Dates Dr. Philly Garcia MD Primary Care Provider Active Start: August 28, 2024 End: August 28, 2024 Neha Luciano COORDINATE MEASURING EQUIPMENT OPERATOR, COORDINATE MEASURING EQUIPMENT OPERATOR-C Attending Provider Active Start: August 28, 2024 End: August 28, 2024 Neha Luciano COORDINATE MEASURING EQUIPMENT OPERATOR, COORDINATE MEASURING EQUIPMENT OPERATOR-C Referring Provider Active Start: August 28, 2024 End: August 28, 2024 Team Status: Inactive Member Role/Relationship Status Dates Dr. Philly Garcia MD Primary Care Provider Active Start: September 07, 2024 End: September 07, 2024 Dr. Philly Garcia MD Referring Provider Active Start: September 07, 2024 End: September 07, 2024 Dr. Olivia Castillo MD Attending Provider Active Start: September 07, 2024 End: September 07, 2024 Team Status: Inactive Member Role/Relationship Status Dates Dr. Philly Garcia MD Primary Care Provider Active Start: September 14, 2024 End: September 14, 2024 Dr. Philly Garcia MD Referring Provider Active Start: September 14, 2024 End: September 14, 2024 Neha Lucinao COORDINATE MEASURING EQUIPMENT OPERATOR, COORDINATE MEASURING EQUIPMENT OPERATOR-C Attending Provider Active Start: September 14, 2024 End: September 14, 2024 Team Status: Inactive Member Role/Relationship Status Dates Dr. Philly Garcia MD Primary Care Provider Active Start: September 28, 2024 End: September 28, 2024 Dr. Philly Garcia MD Referring Provider Active Start: September 28, 2024 End: September 28, 2024 Neha Luciano COORDINATE MEASURING EQUIPMENT OPERATOR, COORDINATE MEASURING EQUIPMENT OPERATOR-C Attending Provider Active Start: September 28, 2024 End: September 28, 2024 Team Status: Inactive Member Role/Relationship Status Dates Dr. Philly Garcia MD Primary Care Provider Active Start: October 05, 2024 End: October 05, 2024 Dr. Philly Garcia MD Referring Provider Active Start: October 05, 2024 End: October 05, 2024 Dr. Olivia Castillo MD Attending Provider Active Start: October 05, 2024 End: October 05, 2024 Team Status: Inactive Member Role/Relationship Status Dates Dr. Philly Garcia MD Primary Care Provider Active Start: October 19, 2024 End: October 19, 2024 Dr. Philly Garcia MD Referring Provider Active Start: October 19, 2024 End: October 19, 2024 Neha Luciano COORDINATE MEASURING EQUIPMENT OPERATOR, COORDINATE MEASURING EQUIPMENT OPERATOR-C Attending Provider Active Start: October 19, 2024 End: October 19, 2024 Team Status: Inactive Member Role/Relationship Status Dates Dr. Philly Garcia MD Primary Care Provider Active Start: October 26, 2024 End: October 26, 2024 Dr. Philly Garcia MD Referring Provider Active Start: October 26, 2024 End: October 26, 2024 Neha Luciano COORDINATE MEASURING EQUIPMENT OPERATOR, COORDINATE MEASURING EQUIPMENT OPERATOR-C Attending Provider Active Start: October 26, 2024 End: October 26, 2024 Team Status: Inactive Member Role/Relationship Status Dates Dr. Philly Garcia MD Primary Care Provider Active Start: November 09, 2024 End: November 09, 2024 Dr. Philly Garcia MD Referring Provider Active Start: November 09, 2024 End: November 09, 2024 Dr. Olivia Castillo MD Attending Provider Active Start: November 09, 2024 End: November 09, 2024 Team Status: Inactive Member Role/Relationship Status Dates Dr. Philly Garcia MD Primary Care Provider Active Start: November 16, 2024 End: November 16, 2024 Dr. Philly Garcia MD Referring Provider Active Start: November 16, 2024 End: November 16, 2024 Neha Luciano COORDINATE MEASURING EQUIPMENT OPERATOR, COORDINATE MEASURING EQUIPMENT OPERATOR-C Attending Provider Active Start: November 16, 2024 End: November 16, 2024 Team Status: Inactive Member Role/Relationship Status Dates Dr. Philly Garcia MD Primary Care Provider Active Start: November 20, 2024 End: November 20, 2024 Dr. Olivia Casitllo MD Attending Provider Active Start: November 20, 2024 End: November 20, 2024 Dr. Olivia Castillo MD Referring Provider Active Start: November 20, 2024 End: November 20, 2024 Team Status: Inactive Member Role/Relationship Status Dates Dr. Philly Garcia MD Primary Care Provider Active Start: November 21, 2024 End: November 21, 2024 Dr. Philly Garcia MD Referring Provider Active Start: November 21, 2024 End: November 21, 2024 Dr. Olivia Castillo MD Attending Provider Active Start: November 21, 2024 End: November 21, 2024 Team Status: Active Member Role/Relationship Status Dates Dr. Philly Garcia MD Primary Care Provider Active Start: November 23, 2024 Dr. Olivia Castillo MD Attending Provider Active Start: November 23, 2024 Dr. Olivia Castillo MD Referring Provider Active Start: November 23, 2024 Team Status: Inactive Member Role/Relationship Status Dates Dr. Philly Garcia MD Primary Care Provider Active Start: November 24, 2024 End: November 24, 2024 Dr. Olivia Castillo MD Attending Provider Active Start: November 24, 2024 End: November 24, 2024 Dr. Olivia Castillo MD Referring Provider Active Start: November 24, 2024 End: November 24, 2024 Team Status: Inactive Member Role/Relationship Status Dates Dr. Philly Garcia MD Primary Care Provider Active Start: August 28, 2024 End: August 28, 2024 Neha Luciano COORDINATE MEASURING EQUIPMENT OPERATOR, COORDINATE MEASURING EQUIPMENT OPERATOR-C Attending Provider Active Start: August 28, 2024 End: August 28, 2024 Neha Luciano COORDINATE MEASURING EQUIPMENT OPERATOR, COORDINATE MEASURING EQUIPMENT OPERATOR-C Referring Provider Active Start: August 28, 2024 End: August 28, 2024 Team Status: Inactive Member Role/Relationship Status Dates Dr. Philly Garcia MD Primary Care Provider Active Start: September 07, 2024 End: September 07, 2024 Dr. Philly Garcia MD Referring Provider Active Start: September 07, 2024 End: September 07, 2024 Dr. Olivia Castillo MD Attending Provider Active Start: September 07, 2024 End: September 07, 2024 Team Status: Inactive Member Role/Relationship Status Dates Dr. Philly Garcia MD Primary Care Provider Active Start: September 14, 2024 End: September 14, 2024 Dr. Philly Garcia MD Referring Provider Active Start: September 14, 2024 End: September 14, 2024 Neha Luciano COORDINATE MEASURING EQUIPMENT OPERATOR, COORDINATE MEASURING EQUIPMENT OPERATOR-C Attending Provider Active Start: September 14, 2024 End: September 14, 2024 Team Status: Inactive Member Role/Relationship Status Dates Dr. Philly Garcia MD Primary Care Provider Active Start: September 28, 2024 End: September 28, 2024 Dr. Philly Garcia MD Referring Provider Active Start: September 28, 2024 End: September 28, 2024 Neha Luciano COORDINATE MEASURING EQUIPMENT OPERATOR, COORDINATE MEASURING EQUIPMENT OPERATOR-C Attending Provider Active Start: September 28, 2024 End: September 28, 2024 Team Status: Inactive Member Role/Relationship Status Dates Dr. Philly Garcia MD Primary Care Provider Active Start: October 05, 2024 End: October 05, 2024 Dr. Philly Garcia MD Referring Provider Active Start: October 05, 2024 End: October 05, 2024 Dr. Olivia Castillo MD Attending Provider Active Start: October 05, 2024 End: October 05, 2024 Team Status: Inactive Member Role/Relationship Status Dates Dr. Philly Garcia MD Primary Care Provider Active Start: October 19, 2024 End: October 19, 2024 Dr. Philly Garcia MD Referring Provider Active Start: October 19, 2024 End: October 19, 2024 Neha Luciano COORDINATE MEASURING EQUIPMENT OPERATOR, COORDINATE MEASURING EQUIPMENT OPERATOR-C Attending Provider Active Start: October 19, 2024 End: October 19, 2024 Team Status: Inactive Member Role/Relationship Status Dates Dr. Philly Garcia MD Primary Care Provider Active Start: October 26, 2024 End: October 26, 2024 Dr. Philly aGrcia MD Referring Provider Active Start: October 26, 2024 End: October 26, 2024 Neha Luciano COORDINATE MEASURING EQUIPMENT OPERATOR, COORDINATE MEASURING EQUIPMENT OPERATOR-C Attending Provider Active Start: October 26, 2024 End: October 26, 2024 Team Status: Inactive Member Role/Relationship Status Dates Dr. Philly Garcia MD Primary Care Provider Active Start: November 09, 2024 End: November 09, 2024 Dr. Philly Garcia MD Referring Provider Active Start: November 09, 2024 End: November 09, 2024 Dr. Olivia Castillo MD Attending Provider Active Start: November 09, 2024 End: November 09, 2024 Team Status: Inactive Member Role/Relationship Status Dates Dr. Philly Garcia MD Primary Care Provider Active Start: November 16, 2024 End: November 16, 2024 Dr. Philly Garcia MD Referring Provider Active Start: November 16, 2024 End: November 16, 2024 Neha Luciano COORDINATE MEASURING EQUIPMENT OPERATOR, COORDINATE MEASURING EQUIPMENT OPERATOR-C Attending Provider Active Start: November 16, 2024 End: November 16, 2024 Team Status: Inactive Member Role/Relationship Status Dates Dr. Philly Garcia MD Primary Care Provider Active Start: November 20, 2024 End: November 20, 2024 Dr. Olivia Castillo MD Attending Provider Active Start: November 20, 2024 End: November 20, 2024 Dr. Olivia Castillo MD Referring Provider Active Start: November 20, 2024 End: November 20, 2024 Team Status: Inactive Member Role/Relationship Status Dates Dr. Philly Garcia MD Primary Care Provider Active Start: November 21, 2024 End: November 21, 2024 Dr. Philly Garcia MD Referring Provider Active Start: November 21, 2024 End: November 21, 2024 Dr. Olivia Castillo MD Attending Provider Active Start: November 21, 2024 End: November 21, 2024 Team Status: Inactive Member Role/Relationship Status Dates Dr. Philly Garcia MD Primary Care Provider Active Start: November 24, 2024 End: November 24, 2024 Dr. Olivia Castillo MD Attending Provider Active Start: November 24, 2024 End: November 24, 2024 Dr. Olivia Castillo MD Referring Provider Active Start: November 24, 2024 End: November 24, 2024 Team Status: Inactive Member Role/Relationship Status Dates Dr. Philly Garcia MD Primary Care Provider Active Start: December 21, 2024 End: December 21, 2024 Dr. Philly Garcia MD Referring Provider Active Start: December 21, 2024 End: December 21, 2024 Neha Luciano NP, COORDINATE MEASURING EQUIPMENT OPERATOR-C Attending Provider Active Start: December 21, 2024 End: December 21, 2024 Team Status: Active Member Role/Relationship Status Dates Dr. Philly Garcia MD Primary Care Provider Active Start: December 21, 2024 Dr. Olivia Casitllo MD Attending Provider Active Start: December 21, 2024 Dr. Olivia Castillo MD Referring Provider Active Start: December 21, 2024 Team Status: Inactive Member Role/Relationship Status Dates Dr. Philly Garcia MD Primary Care Provider Active Start: September 14, 2024 End: September 14, 2024 Dr. Philly Garcia MD Referring Provider Active Start: September 14, 2024 End: September 14, 2024 Neha Luciano COORDINATE MEASURING EQUIPMENT OPERATOR, COORDINATE MEASURING EQUIPMENT OPERATOR-C Attending Provider Active Start: September 14, 2024 End: September 14, 2024 Team Status: Inactive Member Role/Relationship Status Dates Dr. Philly Garcia MD Primary Care Provider Active Start: September 28, 2024 End: September 28, 2024 Dr. Philly Garcia MD Referring Provider Active Start: September 28, 2024 End: September 28, 2024 Neha Luciano COORDINATE MEASURING EQUIPMENT OPERATOR, COORDINATE MEASURING EQUIPMENT OPERATOR-C Attending Provider Active Start: September 28, 2024 End: September 28, 2024 Team Status: Inactive Member Role/Relationship Status Dates Dr. Philly Garcia MD Primary Care Provider Active Start: October 05, 2024 End: October 05, 2024 Dr. Philly Garcia MD Referring Provider Active Start: October 05, 2024 End: October 05, 2024 Dr. Olivia Castillo MD Attending Provider Active Start: October 05, 2024 End: October 05, 2024 Team Status: Inactive Member Role/Relationship Status Dates Dr. Philly Garcia MD Primary Care Provider Active Start: October 19, 2024 End: October 19, 2024 Dr. Philly Garcia MD Referring Provider Active Start: October 19, 2024 End: October 19, 2024 Neha Luciano COORDINATE MEASURING EQUIPMENT OPERATOR, COORDINATE MEASURING EQUIPMENT OPERATOR-C Attending Provider Active Start: October 19, 2024 End: October 19, 2024 Team Status: Inactive Member Role/Relationship Status Dates Dr. Philly Garcia MD Primary Care Provider Active Start: October 26, 2024 End: October 26, 2024 Dr. Philly Garcia MD Referring Provider Active Start: October 26, 2024 End: October 26, 2024 Neha Luciano COORDINATE MEASURING EQUIPMENT OPERATOR, COORDINATE MEASURING EQUIPMENT OPERATOR-C Attending Provider Active Start: October 26, 2024 End: October 26, 2024 Team Status: Inactive Member Role/Relationship Status Dates Dr. Philly Garcia MD Primary Care Provider Active Start: November 09, 2024 End: November 09, 2024 Dr. Philly Garcia MD Referring Provider Active Start: November 09, 2024 End: November 09, 2024 Dr. Olivia Castillo MD Attending Provider Active Start: November 09, 2024 End: November 09, 2024 Team Status: Inactive Member Role/Relationship Status Dates Dr. Philly Garcia MD Primary Care Provider Active Start: November 16, 2024 End: November 16, 2024 Dr. Philly Garcia MD Referring Provider Active Start: November 16, 2024 End: November 16, 2024 Neha Luciano COORDINATE MEASURING EQUIPMENT OPERATOR, COORDINATE MEASURING EQUIPMENT OPERATOR-C Attending Provider Active Start: November 16, 2024 End: November 16, 2024 Team Status: Inactive Member Role/Relationship Status Dates Dr. Philly Garcia MD Primary Care Provider Active Start: November 20, 2024 End: November 20, 2024 Dr. Olivia Castillo MD Attending Provider Active Start: November 20, 2024 End: November 20, 2024 Dr. Olivia Castillo MD Referring Provider Active Start: November 20, 2024 End: November 20, 2024 Team Status: Inactive Member Role/Relationship Status Dates Dr. Philly Garcia MD Primary Care Provider Active Start: November 21, 2024 End: November 21, 2024 Dr. Philly Garcia MD Referring Provider Active Start: November 21, 2024 End: November 21, 2024 Dr. Olivia Castillo MD Attending Provider Active Start: November 21, 2024 End: November 21, 2024 Team Status: Inactive Member Role/Relationship Status Dates Dr. Philly Garcia MD Primary Care Provider Active Start: November 24, 2024 End: November 24, 2024 Dr. Olivia Castillo MD Attending Provider Active Start: November 24, 2024 End: November 24, 2024 Dr. Olivia Castillo MD Referring Provider Active Start: November 24, 2024 End: November 24, 2024 Team Status: Inactive Member Role/Relationship Status Dates Dr. Philly Garcia MD Primary Care Provider Active Start: December 21, 2024 End: December 21, 2024 Dr. Philly Garcia MD Referring Provider Active Start: December 21, 2024 End: December 21, 2024 Neha Luciano COORDINATE MEASURING EQUIPMENT OPERATOR, COORDINATE MEASURING EQUIPMENT OPERATOR-C Attending Provider Active Start: December 21, 2024 End: December 21, 2024 Team Status: Inactive Member Role/Relationship Status Dates Dr. Philly Garcia MD Primary Care Provider Active Start: January 11, 2025 End: January 11, 2025 Dr. Philly Garcia MD Referring Provider Active Start: January 11, 2025 End: January 11, 2025 Dr. Olivia Castillo MD Attending Provider Active Start: January 11, 2025 End: January 11, 2025 Team Status: Active Member Role/Relationship Status Dates Dr. Philly Garcia MD Primary Care Provider Active Start: January 11, 2025 Dr. Olivia Castillo MD Attending Provider Active Start: January 11, 2025 Dr. Olivia Castillo MD Referring Provider Active Start: January 11, 2025 Team Status: Active Member Role/Relationship Status Dates Dr. Philly Garcia MD Primary care physician Active Team Status: Inactive Member Role/Relationship Status Dates Dr. Philly Garcia MD Primary care physician Active Start: October 19, 2024 End: October 19, 2024 Dr. Philly Garcia MD Referring Provider Active Start: October 19, 2024 End: October 19, 2024 Neha Luciano NP, COORDINATE MEASURING EQUIPMENT OPERATOR-C Attending physician Active Start: October 19, 2024 End: October 19, 2024 Team Status: Inactive Member Role/Relationship Status Dates Dr. Philly Garcia MD Primary care physician Active Start: October 26, 2024 End: October 26, 2024 Dr. Philly Garcia MD Referring Provider Active Start: October 26, 2024 End: October 26, 2024 Neha Luciano NP, COORDINATE MEASURING EQUIPMENT OPERATOR-C Attending physician Active Start: October 26, 2024 End: October 26, 2024 Team Status: Inactive Member Role/Relationship Status Dates Dr. Philly Garcia MD Primary care physician Active Start: November 09, 2024 End: November 09, 2024 Dr. Philly Garcia MD Referring Provider Active Start: November 09, 2024 End: November 09, 2024 Dr. Olivia Castillo MD Attending physician Active Start: November 09, 2024 End: November 09, 2024 Team Status: Inactive Member Role/Relationship Status Dates Dr. Philly Garcia MD Primary care physician Active Start: November 16, 2024 End: November 16, 2024 Dr. Philly Garcia MD Referring Provider Active Start: November 16, 2024 End: November 16, 2024 Neha Luciano NP, COORDINATE MEASURING EQUIPMENT OPERATOR-C Attending physician Active Start: November 16, 2024 End: November 16, 2024 Team Status: Inactive Member Role/Relationship Status Dates Dr. Philly Garcia MD Primary care physician Active Start: November 20, 2024 End: November 20, 2024 Dr. Olivia Castillo MD Attending physician Active Start: November 20, 2024 End: November 20, 2024 Dr. Olivia Castillo MD Referring Provider Active Start: November 20, 2024 End: November 20, 2024 Team Status: Inactive Member Role/Relationship Status Dates Dr. Philly Garcia MD Primary care physician Active Start: November 21, 2024 End: November 21, 2024 Dr. Philly Garcia MD Referring Provider Active Start: November 21, 2024 End: November 21, 2024 Dr. Olivia Castillo MD Attending physician Active Start: November 21, 2024 End: November 21, 2024 Team Status: Inactive Member Role/Relationship Status Dates Dr. Philly Garcia MD Primary care physician Active Start: November 24, 2024 End: November 24, 2024 Dr. Olivia Castillo MD Attending physician Active Start: November 24, 2024 End: November 24, 2024 Dr. Olivia Castillo MD Referring Provider Active Start: November 24, 2024 End: November 24, 2024 Team Status: Inactive Member Role/Relationship Status Dates Dr. Philly Garcia MD Primary care physician Active Start: December 21, 2024 End: December 21, 2024 Dr. Philly Garcia MD Referring Provider Active Start: December 21, 2024 End: December 21, 2024 Neha Luciano COORDINATE MEASURING EQUIPMENT OPERATOR, COORDINATE MEASURING EQUIPMENT OPERATOR-C Attending physician Active Start: December 21, 2024 End: December 21, 2024 Team Status: Inactive Member Role/Relationship Status Dates Dr. Philly Garcia MD Primary care physician Active Start: January 11, 2025 End: January 11, 2025 Dr. Philly Garcia MD Referring Provider Active Start: January 11, 2025 End: January 11, 2025 Dr. Olivia Castillo MD Attending physician Active Start: January 11, 2025 End: January 11, 2025 Team Status: Inactive Member Role/Relationship Status Dates Dr. Philly Garcia MD Primary care physician Active Start: February 01, 2025 End: February 01, 2025 Dr. Philly Garcia MD Referring Provider Active Start: February 01, 2025 End: February 01, 2025 Dr. Olivia Castillo MD Attending physician Active Start: February 01, 2025 End: February 01, 2025 Team Status: Active Member Role/Relationship Status Dates Dr. Philly Garcia MD Primary care physician Active Start: February 01, 2025 Dr. Olivia Castillo MD Attending physician Active Start: February 01, 2025 Dr. Olivia Castillo MD Referring Provider Active Start: February 01, 2025 Team Status: Inactive Member Role/Relationship Status Dates Dr. Philly Garcia MD Primary care physician Active Start: November 09, 2024 End: November 09, 2024 Dr. Philly Garcia MD Referring Provider Active Start: November 09, 2024 End: November 09, 2024 Dr. Olivia Castillo MD Attending physician Active Start: November 09, 2024 End: November 09, 2024 Team Status: Inactive Member Role/Relationship Status Dates Dr. Philly Garcia MD Primary care physician Active Start: November 16, 2024 End: November 16, 2024 Dr. Philly Garcia MD Referring Provider Active Start: November 16, 2024 End: November 16, 2024 Neha Luciano COORDINATE MEASURING EQUIPMENT OPERATOR, COORDINATE MEASURING EQUIPMENT OPERATOR-C Attending physician Active Start: November 16, 2024 End: November 16, 2024 Team Status: Inactive Member Role/Relationship Status Dates Dr. Philly Garcia MD Primary care physician Active Start: November 20, 2024 End: November 20, 2024 Dr. Olivia Castillo MD Attending physician Active Start: November 20, 2024 End: November 20, 2024 Dr. Olivia Castillo MD Referring Provider Active Start: November 20, 2024 End: November 20, 2024 Team Status: Inactive Member Role/Relationship Status Dates Dr. Philly Garcia MD Primary care physician Active Start: November 21, 2024 End: November 21, 2024 Dr. Philly Garcia MD Referring Provider Active Start: November 21, 2024 End: November 21, 2024 Dr. Olivia Castillo MD Attending physician Active Start: November 21, 2024 End: November 21, 2024 Team Status: Inactive Member Role/Relationship Status Dates Dr. Philly Garcia MD Primary care physician Active Start: November 24, 2024 End: November 24, 2024 Dr. Olivia Castillo MD Attending physician Active Start: November 24, 2024 End: November 24, 2024 Dr. Olivia Castillo MD Referring Provider Active Start: November 24, 2024 End: November 24, 2024 Team Status: Inactive Member Role/Relationship Status Dates Dr. Philly Garcia MD Primary care physician Active Start: December 21, 2024 End: December 21, 2024 Dr. Philly Garcia MD Referring Provider Active Start: December 21, 2024 End: December 21, 2024 Neha Luciano COORDINATE MEASURING EQUIPMENT OPERATOR, COORDINATE MEASURING EQUIPMENT OPERATOR-C Attending physician Active Start: December 21, 2024 End: December 21, 2024 Team Status: Inactive Member Role/Relationship Status Dates Dr. Philly Garcia MD Primary care physician Active Start: January 11, 2025 End: January 11, 2025 Dr. Philly Garcia MD Referring Provider Active Start: January 11, 2025 End: January 11, 2025 Dr. Olivia Castillo MD Attending physician Active Start: January 11, 2025 End: January 11, 2025 Team Status: Inactive Member Role/Relationship Status Dates Dr. Philly Garcia MD Primary care physician Active Start: February 01, 2025 End: February 01, 2025 Dr. Philly Garcia MD Referring Provider Active Start: February 01, 2025 End: February 01, 2025 Dr. Olivia Castillo MD Attending physician Active Start: February 01, 2025 End: February 01, 2025 Team Status: Inactive Member Role/Relationship Status Dates Dr. Philly Garcia MD Primary care physician Active Start: February 22, 2025 End: February 22, 2025 Dr. Philly Garcia MD Referring Provider Active Start: February 22, 2025 End: February 22, 2025 Dr. Olivia Castillo MD Attending physician Active Start: February 22, 2025 End: February 22, 2025 Team Status: Active Member Role/Relationship Status Dates Dr. Philly Garcia MD Primary care physician Active Start: February 22, 2025 Dr. Olivia Castillo MD Attending physician Active Start: February 22, 2025 Dr. Olivia Castillo MD Referring Provider Active Start: February 22, 2025 Reason for Visit (unrecogniz ed section and content) Reason Comments Established Patient Reason Comments Future Appointment Reason Comments Blood Draw (CVAD) Reason Comments Refill Request Reason Comments Non-Chemotherapy Treatment Specialty Diagnoses / Procedures Referred By Contac t Referred To Contact HEMATOLOGY/ONCOLOGY Diagnoses Breast cancer metastasized to axillary lymph node, left (HCC) Bone metastases (HCC) Procedures INJECTION, ZOLEDRONIC ACID, 1 MG Tommy French, DO [address] [place] [address] [facility] [address] [place] [address] Referral ID Status Reason Start Date Expiration Date V isits Requested Visits Authorized [id number] Authorized 05/01/2020 05/16/2022 99 99 Reason Comments Appointment Reason Comments Appointment Cancelled Goals (unrecognized section and content) Goals may be documented in a n alternate sectionGoals may be documented in an alternate sectionGoals may be documented in an alternate sectionGoals may be documented in an alternate sectionGoals may be documented in an alternate sectionGoals may be documented in an alternate sectionGoals may be documented in an alternate sectionGoals may be documented in an alternate sectionGoals may be documented in an alternate sectionGoals may be documented in an alternate sectionGoals may be documented in an alternate sectionGoals may be documented in an alternate sectionGoals may be documented in an alternate sectionGoals may be documented in an alternate sectionGoals may be documented in an alternate sectionGoals may be documented in an alternate sectionGoals may be documented in an alternate sectionGoals may be documented in an alternate sectionGoals may be documented in an alternate sectionGoals may be documented in an alternate sectionGoals may be documented in an alternate sectionGoals may be documented in an alternate sectionGoals may be documented in an alternate sectionGoals may be documented in an alternate sectionGoals may be documented in an alternate sectionGoals may be documented in an alternate section FOR RECORDS PERTAINING TO PATIENTS WHO ARE [...] BE BASED ON THE PRIMARY CLINICAL RECORDS. [facility] [employer] [facility] provides no warranty or guarantee of the accuracy or completeness of information in this document.
[2025-04-16] MEDS: 0.9% Saline Lock 10 ML Syringe IV (07:57)
== END | disposition home or self-care (01) ==
LOC: CT 07:35
PROVIDERS: PCP Internal Medicine; Referring Provider Internal Medicine Hematology & Oncology; Visit Provider Internal Medicine Hematology & Oncology
DX: C50.812 Malignant neoplasm of overlapping sites of left female breast (principal); C78.7 Secondary malignant neoplasm of liver and intrahepatic bile duct; C79.51 Secondary malignant neoplasm of bone; C77.3 Secondary and unspecified 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; C64.1 Malignant neoplasm of right kidney, except renal pelvis; Z17.0 Estrogen receptor positive status [ER+]
CPT/HCPCS: 71260; 74177; Q9967; A4216